=== PATIENT | male | born 1940 | race Caucasian/White ===

== ENCOUNTER → 2017-10-11 06:20 | Day surgery (SDC) | payer BC, MEDICAID, SELFPAY ==
[2017-10-10 12:10] VITALS: BMI 31.2
--- NOTE | 2017-10-11 08:56 | CL.D_ITS ---
Patient Name: GEORGE KEY Study Date: 10/11/2017 Performing: Willam Chacon MD Ht: 70.07 inches 178 cm : 1940 Wt: 218.26 lbs 99 kg Age: 76 Gender: male BSA: 2.17 PROCEDURE(S) PERFORMED LD55-UHK/COR/LV CLINICAL PROFILE AND INDICATIONS INDICATIONS: Unstable Angina Stress/Imaging Stress Test w/SPECT MPI: Yes Result: Positive Intermediate RiskStress Test with SP ECT MPI: Positive Intermediate Risk Angina Classification Anginal Classification w/in 2 Weeks: CCS I CAD Presentations: Unstable angina. Comorbidities/Risk Factors: Hypertension Dyslipidemia Prior CABG CONCLUSIONS Triple vessel CAD of the LM, LAD, LCX and RCA Normal Left Ventricular systolic function Elevated Left Ventricular End Diastolic Pressure Widely patent MORALES To LAD, SVG to OM and SVG to PDA. RECOMMENDATIONS ASA Indefinitely Management as per referring Rn Telephonic Resume full activity D/c plavix; Dr Cartwright to initiate ori/arb tx. D/w Dr Patel. DESCRIPTION OF PROCEDURE The patient arrived to the procedure lab. The risks and benefits of the procedure as well as a full d escription of our services here and current unavailability of surgical backup were fully explained to the patient and/or their significant other prior to the catheterization. The Timeout was completed, verifying the correct patient and procedure. The patient's procedural site was prepped and draped in the usual fashion. Local anesthetic was given subcutaneously to right groin region with Lidocaine 2%. Using a modified Seldinger technique, arterial access was obtained via the right femoral artery, a 4 Fr sheath was inserted Left Coronary Artery selective angiography was performed in multiple views us ing a 4 Fr. JL5 catheter. Right Coronary Artery selective angiography was then performed in multiple views using a 4 Fr. 3DRC catheter. Saphenous Vein graft to the RCA selective angiography was performe d in multiple views using a 4 Fr. 3DRC catheter. Saphenous Vein graft to the Circumflex selective ang iography was performed in multiple views using a 4 Fr. 3DRC catheter. Left internal mammary artery gr aft to the LAD selective angiography was performed in multiple views using a 4 Fr. 3DRC catheter. Lef t Ventriculography was performed in CRUZ projection using a 4 Fr. Pigtail catheter. LV to AO pullback pressures were then recorded.The arterial sheath was pulled and manual compression applied until hemo stasis is achieved. CORONARY ANGIOGRAPHY DOMINANCE: Right Dominant LEFT HEART ASSESSMENT Left Ventricular Ejection Fraction: by LV Gram 65 % Normal LV wall motion Normal Left Ventricular systolic function Elevated Left Ventricular End Diastolic Pressure LEFT MAIN: is occluded LEFT ANTERIOR DECENDING ARTERY: is occluded CIRCUMFLEX ARTERY: is occluded RIGHT CORONARY ARTERY: MID RCA: is occluded GRAFTS: MORALES graft to the LAD is patent Saphenous Vein graft to the RPDA is patent Saphenous Vein graft to the 1st OM is patent COMPLICATIONS No Complications PROCEDURE MEDICATIONS Oxygen: 2 L/min via nasal cannula SUMMARY OF HEMODYNAMIC DATA Time AIR REST ECG 07:04:29 AO 160/63 (98) SA 08:32:53 LV 150/-9, 15 08:43:00 LV 162/-11, 15 08:43:07 LVp 158/5, 22 08:43:12 AOp 148/50 (84) 08:43:17 Signed By Willam Chacon MD On 10/11/2017 08:56:05 Willam Chacon MD
== END ==
PROVIDERS: Family Provider Student in an Organized Health Care Education/Training Program; PCP Student in an Organized Health Care Education/Training Program; Visit Provider Internal Medicine Cardiovascular Disease
DX: I25.110 Atherosclerotic heart disease of native coronary artery with unstable angina pectoris (principal); I10 Essential (primary) hypertension; Z95.1 Presence of aortocoronary bypass graft; Z79.82 Long term (current) use of aspirin; Z79.899 Other long term (current) drug therapy
CPT/HCPCS: 93459; J7040; C1769; C1894; Q9967

== ENCOUNTER 2018-10-07 18:56 | Emergency (ER) | payer MEDICARE, MEDICAID, SELFPAY ==
[2018-10-07 18:57] VITALS: BP 162/84; PULSE 78; RESP 16; TEMP 36.4; O2SAT 98; BMI 30.1
--- NOTE | 2018-10-07 18:59 | CT_ITS ---
STUDY: CT ABDOMEN AND PELVIS WITHOUT CONTRAST REASON FOR EXAM: Male, 77 years old. Left upper quadrant pain RADIATION DOSAGE (If Supplied By Facility): CTDIvol = ( 16.06 ) mGy, DLP = ( 826.45 ) mGycm TECHNIQUE: Transaxial images were obtained from the dome of the diaphragm to the symphysis pubis without oral contrast, and without intravenous contrast. Sagittal and coronal images were reconstructed. Individualized dose optimization techniques were used for this CT. COMPARISON: None. FINDINGS: Mild fibrotic changes and air trapping in the lung bases. Sternal wires and mediastinal surgical clips compatible with prior CABG. Normal liver. There are multiple gallstones. No gallbladder wall thickening or pericholecystic fluid. Normal spleen. There is diffuse atrophy of the pancreas. Normal bilateral adrenal glands. Normal right kidney. Normal left kidney. Normal visualized stomach. There is mild wall thickening of the second and third portions of the duodenum with trace amount of periduodenal stranding. There are multiple colonic diverticula consistent with diverticulosis. There is non-visualization of the appendix. There is diffuse atherosclerotic calcification of the abdominal aorta, without a demonstrated aneurysm. Normal inferior vena cava. Normal retroperitoneum. Normal urinary bladder. Normal abdominal wall. There are diffuse degenerative changes of the visualized lumbar spine. CT/Abdomen/Pelvis without Cont IMPRESSION: 1. Mild wall thickening of the second and third portions of the duodenum with trace amount of periduodenal stranding suggesting possibility of duodenitis. Pancreatitis is a secondary consideration. No pneumoperitoneum. 2. No hydronephrosis or urinary tract calcifications. 3. Cholelithiasis. 4. Diverticulosis without evidence of diverticulitis. Electronically Signed: Ronaldo Lorenzo MD at 20:46 EST , Service support ,
--- NOTE | 2018-10-07 19:00 | EKG12_ITS ---
Test Reason : ABD PAIN Blood Pressure : / mmHG Vent. Rate : 070 BPM Atrial Rate : 070 BPM P-R Int : 172 ms QRS Dur : 098 ms QT Int : 438 ms P-R-T Axes : 082 048 053 degrees QTc Int : 473 ms Sinus rhythm with frequent Premature ventricular complexes Otherwise normal ECG Confirmed by DIRK GREENFIELD, DILIA ([id number]), subeditor CHRISTIAN VAZQUEZ ([id number]) on 10/10/2018 2:10:02 PM Referred By: IRMA Confirmed By:DILIA CAVAZOS MD
--- NOTE | 2018-10-07 19:12 | ED.DCSUM_ITS ---
- ER Visit Summary Date of Service: 10/07/18 Chief Complaint: [] Intermittent left side abdominal pain that started today History of Present Illness: The patient is a 77 M [] he reports intermittent left-sided abdominal pain that started today, the pain at some degree is positional if he sits down or stands up he can make it go away, it is a sharp discomfort, he has had normal bowel and bladder habits, no fever no cough no tainted food or sick individuals no diarrhea, no history of any type of GI elements, prior hysterectomy 2 years ago unremarkable he has been able to eat and drink without difficulty, when I asked him where his pain as he takes his hand and draws it around his left flank but is currently not having any pain Physical Examination: [] 164/84 afebrile General, no distress resting comfortably HEENT is generally unremarkable The neck is supple no adenopathy Cardiovascular, regular rate and rhythm Lungs, clear bilateral Abdomen, soft nontender, slightly distended but there is no rebound guarding organomegaly Extremities, no clubbing cyanosis or edema Neurologic, awake alert answering questions appropriately moving all 4 extremities Test Results: [] Emergency Department Course and Treatment: [] His age his complaints screening labs CT IV fluids Screening labs are all generally unremarkable see those reports, the CT shows nothing acute questionable second and third portion of duodenum with some inflammation consider duodenitis or pancreatitis but his lipase is normal his pain is more to the left side of the abdomen, and intermittent, on reevaluation abdomen soft and nontender I explained all the test results to him he is comfortable discharge home he will stay on a bland diet, he will consider taking proton pump inhibitors but otherwise have explained he needs to follow with his outpatient providers and possibly refer to GI for further management he understands and agrees Treatment Plan: [] Is also note the patient reports he has a history of drinking a lot of lemon and vinegar water for unspecified reasons I have asked him to discontinue that Disposition: [] Home stable Impression: [] Nonspecific intermittent left-sided abdominal pain, possible duodenitis on CT scan This note was generated with [employer] dictation software. It may contain incorrect words, spelling, and punctuation that were not noted in review of the chart prior to signing ED Disposition - Plan for ED Patient: Chief Complaint: Abd Pain Instructions: ED Abdominal Pain Unkn Cause Prescriptions: Omeprazole [Prilosec] 20 mg PO DAILY #30 cap Referrals: Husam Deras DO [Primary Care Provider] -
[2018-10-07 19:36] LABS: Absolute Lymphocyte Count 1.75 X10^3/ul (0.83-4.51); Absolute Neutrophil Count 6.6 X10^3/uL (2.0-7.7); Basophil# 0.01 X10^3/uL; Basophil% 0.1 % (0-1); Eosinophil# 0.18 X10^3/uL; Eosinophils% 1.9 % (0-5); Hematocrit 45.2 % (40-54); Lymphocyte # 1.75 X10^3/ul (4.0); Lymphocyte % 18.5 % (19-41); Mean Corp Hgb Conc 33.2 g/gl (32-36); Mean Corpuscular Hgb 30.9 pg (27.0-32.0); Mean Corpuscular Volume 93.2 fL (80-94); Mean Platelet Vol. 10.6 fl (6.2-12.0); Monocyte# 0.87 X10^3/uL; Monocyte% 9.2 % (0-10); Neutrophil # 6.61 X10^3/uL (2.7-7.7); Neutrophil % 70.1 % (47-70); Platelet Count 175 K/mm3 (150-450); RBC Distribution Width CV 13.6 % (11.6-14.6); Red Blood Count 4.85 M/mm3 (4.6-6.2); White Blood Count 9.4 K/mm3 (4.4-11.0)
[2018-10-07 19:43] LABS: POSITIVE COUNT NO; POSITIVE DIFFERENTIAL NO; POSITIVE MORPHOLOGY NO
[2018-10-07] MEDS: 0.9% Normal Saline 1,000 ML 125 ML IV (19:51)
[2018-10-07 20:01] LABS: Bacteria 0 SEEN /hpf (None Seen); Mucous, Urine 0 SEEN /hpf (<or=2+); Squamous Epithelial Cells - UA 0 SEEN /hpf (0-5)
[2018-10-07 20:07] LABS: Color, Urine Yellow (Yellow); Glucose, Dipstick Normal (Normal); Ketone-Dipstick Negative (Negative); Leukocyte Esterase-Dipstick Negative /ul (Negative); Nitrite-Dipstick Negative (Negative); Occult Blood-Urine Negative /ul (Negative); Protein-Dipstick 15 mg/dl (Negative); Specific Gravity, Urine 1.015 (1.002-1.030); Urine Bilirubin Dipstick Negative (Negative); Urine Clarity Clear (Clear); Urine Urobilinogen Normal (Normal)
[2018-10-07 20:14] LABS: White Blood Cells 0-5 SEEN /hpf (0-5)
[2018-10-07 20:15] LABS: Red Blood Cells-Urine 0-5 SEEN /hpf (0-5)
[2018-10-07 20:22] LABS: AST(SGOT) 17 U/L (15-37); Alanine Aminotransfer ALT/SGPT 35 U/L (16-61); Albumin, Serum 3.7 g/dL (3.2-5.0); Alkaline Phosphatase 50 U/L (45-117); Anion Gap 8 (5-15); BUN 25 mg/dL (7-18); BUN/Creat Ratio 25.4 RATIO (10-20); Bilirubin, Direct 0.17 mg/dL (0.00-0.30); Calcium,Total 8.7 mg/dL (8.5-10.1); Chloride 102 mmol/L (98-107); Creatinine, Serum 0.98 mg/dL (0.70-1.30); EST Glomerular Filtration Rate 78 mL/min (>60); Est Glom Filt Rate - Afr Amer 95 mL/min (>60); Estimated Creatinine Clearance 66.21 ml/min; Globulin 4.3 g/dL (2.2-4.2); Glucose 104 mg/dL (74-106); Lipase 153 U/L (73-393); Potassium 4.1 mmol/L (3.5-5.1); Sodium Level 137 mmol/L (136-145)
--- NOTE | 2018-10-07 21:09 | ED.DEP ---
ED Disposition - Plan for ED Patient: Chief Complaint: Abd Pain Instructions: ED Abdominal Pain Unkn Cause Prescriptions: Omeprazole [Prilosec] 20 mg PO DAILY #30 cap Referrals: Husam Deras DO [Primary Care Provider] -
[2018-10-07 21:38] VITALS: BP 125/77; PULSE 66; RESP 18; O2SAT 94
== END 2018-10-07 21:38 | disposition home or self-care (01) ==
PROVIDERS: Emergency Provider Emergency Medicine; Family Provider Student in an Organized Health Care Education/Training Program; PCP Student in an Organized Health Care Education/Training Program
DX: R10.9 Unspecified abdominal pain (principal); I10 Essential (primary) hypertension; Z79.82 Long term (current) use of aspirin; Z79.899 Other long term (current) drug therapy
CPT/HCPCS: 74176; 80048; 80076; 81001; 83690; 84484; 85025; 93005; 96360; 96361; 99284; J7030; A4216; J2405

== ENCOUNTER 2019-07-23 12:12 | Emergency (ER) | payer MEDICARE, MEDICAID, SELFPAY ==
[2019-07-23 12:13] VITALS: BP 110/82; PULSE 54; RESP 16; TEMP 36.6; O2SAT 98; BMI 31.1
[2019-07-23 12:53] LABS: Absolute Lymphocyte Count 1.75 X10^3/uL (0.83-4.51); Basophil# 0.04 X10^3/uL; Basophil% 0.6 % (0-1); Eosinophil# 0.16 X10^3/uL; Eosinophils% 2.4 % (0-5); Hematocrit 43.1 % (40-54); Hemoglobin 14.1 g/dL (13.0-16.5); Lymphocyte # 1.75 X10^3/ul (4.0); Lymphocyte % 26.1 % (19-41); Mean Corp Hgb Conc 32.7 g/dL (32-36); Mean Corpuscular Hgb 30.6 pg (27.0-32.0); Mean Corpuscular Volume 93.5 fL (80-94); Mean Platelet Vol. 9.7 fl (6.2-12.0); Monocyte% 10.4 % (0-10); NRBC Flagged by Analyzer 0 % (0-5); Neutrophil # 4.02 X10^3/uL (2.7-7.7); Neutrophil % 60.1 % (47-70); Platelet Count 170 K/mm3 (150-450); RBC Distribution Width CV 13.2 % (11.6-14.6); RBC Distribution Width SD 44.8 fl (35.1-43.9); Red Blood Count 4.61 M/mm3 (4.6-6.2); White Blood Count 6.7 K/mm3 (4.4-11.0)
[2019-07-23 13:06] LABS: Anion Gap 5 (5-15); BUN 29 mg/dL (7-18); BUN/Creat Ratio 32.9 RATIO (10-20); Calcium,Total 8.8 mg/dL (8.5-10.1); Chloride 102 mmol/L (98-107); Creatinine, Serum 0.88 mg/dL (0.70-1.30); EST Glomerular Filtration Rate 89 mL/min (>60); Est Glom Filt Rate - Afr Amer 108 mL/min (>60); Estimated Creatinine Clearance 74.87 ml/min; Glucose 97 mg/dL (74-106); Potassium 4.3 mmol/L (3.5-5.1); Sodium Level 134 mmol/L (136-145)
--- NOTE | 2019-07-23 13:16 | ED.DCSUM_ITS ---
- ER Visit Summary Date of Service: 07/23/19 Chief Complaint: Left thigh contusion History of Present Illness: The patient is a 78 M who states that approximately 3 days ago he was working overnight with a left medial quad cramp. He tells me that he gets these often but only at nighttime. States he was so bad he was pushing on the muscle very hardly. He tells me that within 36 hours he began to notice a bruise on the inner left thigh. This is now spread down inferiorly towards his knee. He has been eating bananas and drinking plenty of fluids. He states that he is considering getting some potassium. He has not discussed this with his doctor. Physical Examination: Afebrile vital signs stable Gen: Well-nourished well-developed Head: Normocephalic atraumatic Eyes: Perrl EOMI ENT: TMs clear no rhinorrhea moist mucous membranes Neck: Supple no lymphadenopathy no JVD nontender CVS: Regular rate rhythm no murmurs normal S1-S2 Respiratory: No distress clear to auscultation bilaterally chest nontender Abdomen: Soft nontender nondistended normal bowel sounds no masses Back: Nontender Extremity: Nontender no edema is a dark purple ecchymotic region on the medial aspect of the mid left thigh standing down to just above the knee. Skin: Normal color no rash Neuro: alert orientated ?3 CN II-XII intact normal strength sensation reflexes gait cerebellar Psych: Normal affect normal mood Test Results: CBC and BMP were normal Emergency Department Course and Treatment: Patient was advised that I do not feel strongly he needs potassium supplementation as his potassium is 4.3. I think this is local trauma for him pushing on the area most likely break in a small blood vessel. Patient to follow-up return if worsening or concerns Impression: 1. Left thigh ecchymosis 2. Left thigh muscle spasm This note was generated with [employer] dictation software. It may contain incorrect words, spelling, and punctuation that were not noted in review of the chart prior to signing ED Disposition - Plan for ED Patient: Disposition: Home or Assisted Living Instructions: Contusions (Bruises), Muscle Spasm Referrals: Husam Deras, [Primary Care Provider] - As Needed
== END 2019-07-23 13:26 | disposition home or self-care (01) ==
PROVIDERS: Emergency Provider Emergency Medicine; Family Provider Student in an Organized Health Care Education/Training Program; PCP Student in an Organized Health Care Education/Training Program
DX: S70.12XA Contusion of left thigh, initial encounter (principal); M62.838 Other muscle spasm; K21.9 Gastro-esophageal reflux disease without esophagitis; I10 Essential (primary) hypertension; E78.00 Pure hypercholesterolemia, unspecified; Z79.82 Long term (current) use of aspirin; Z79.899 Other long term (current) drug therapy; Z87.891 Personal history of nicotine dependence; X58.XXXA Exposure to other specified factors, initial encounter; Y93.9 Activity, unspecified; Y92.009 Unspecified place in unspecified non-institutional (private) residence as the place of occurrence of the external cause; Y99.8 Other external cause status
CPT/HCPCS: 80048; 85025; 99282; A4216

== ENCOUNTER 2019-12-03 11:47 | Emergency (ER) | payer MEDICARE, MEDICAID, SELFPAY ==
[2019-12-03 11:48] VITALS: BP 168/58; PULSE 69; RESP 16; TEMP 36.5; O2SAT 98; BMI 29.9
--- NOTE | 2019-12-03 12:51 | VDLE_ITS ---
Reason For Study: Swelling RIGHT GSV is normal. CFV is compressible, spontaneous, phasic, competent and demonstrates normal augmentation. FV is compressible, spontaneous, phasic, competent and demonstrates normal augmentation. POP V is compressible, spontaneous, phasic, competent and demonstrates normal augmentation. T/P Trunk is compressible. PTV is compressible. RT PerV is compressible. Structure noted in the popliteal space measuring approximently 1.56 x 4.46 x 5.82 cm. Procedure Exam performed portable in ED. A preliminary report was called and/or faxed to [facility]. Interpretation Summary There is no evidence of right lower extremity deep vein thrombosis. Right great saphenous vein appears patent and compressible segmentally. Right popliteal space 1.56 x 4.46 x 5.82 cm hypoechoic structure consistent with a Bryan's cyst. Clinical correlation would be appropriate. Ordering Physician: Les Broussard Referring Physician: Husam May Performed By: Sarika Esquivel RVT
--- NOTE | 2019-12-03 13:00 | ED.VISSUMM ---
- ER Visit Summary Date of Service: 12/03/19 Chief Complaint: Right leg swelling History of Present Illness: The patient is a 79 M who presents with right lower extremity swelling that is been getting worse over the past 2 weeks. Patient states he has some tingling in both feet. Patient denies any calf pain or thigh pain. Patient states he twisted his knee while walking a few days ago. Patient states he felt a pop in the anterior aspect of his knee. Patient has been able to ambulate since without difficulty. Patient denies any weakness. Patient denies any chest pain or shortness of breath. Physical Examination: Vital signs are stable. Patient is afebrile. Patient is in no acute distress. Oral mucosa is pink and moist. Neck is supple. Trachea is midline. There is no JVD. Heart was regular rate and rhythm. Lungs are clear and equal bilaterally. Abdomen is soft. Bowel sounds are normal. There is no tenderness. Cranial nerves II through XII are intact. There are no focal motor or sensory deficits noted. Extremities were intact. There is no calf tenderness. There is no thigh tenderness. There is 1+ edema of the right lower extremity. Pedal pulses are equal bilaterally. Test Results: Venous duplex of the right lower extremity was obtained. There is no evidence of DVT. Emergency Department Course and Treatment: Patient was instructed to ice and elevate his right leg. Patient was instructed to follow-up with his primary care physician in 5 to 7 days. Patient understood and was agreeable with the plan. All questions were answered. Disposition: Discharge home Impression: Right leg edema This note was generated with [employer] dictation software. It may contain incorrect words, spelling, and punctuation that were not noted in review of the chart prior to signing ED Disposition - Plan for ED Patient: Disposition: Home or Assisted Living Diagnosis: Leg edema, right Instructions: ED Peripheral Edema, Unilateral Referrals: Husam Deras DO [Primary Care Provider] - 5-7 Days
== END 2019-12-03 14:41 | disposition home or self-care (01) ==
PROVIDERS: Emergency Provider Emergency Medicine; PCP Student in an Organized Health Care Education/Training Program
DX: R60.0 Localized edema (principal)
CPT/HCPCS: 93971; 99282

== ENCOUNTER 2019-12-19 13:13 | Emergency (ER) | payer MEDICARE, MEDICAID, SELFPAY ==
[2019-12-19 13:14] VITALS: BP 157/73; PULSE 67; RESP 18; RESP 19; TEMP 36.7; O2SAT 97; BMI 31.8
--- NOTE | 2019-12-19 13:26 | RAD_ITS ---
STUDY: X-RAY - RIGHT KNEE REASON FOR EXAM: Male, 79 years old. PAIN AND SWELLING X 4 WEEKS TECHNIQUE: 4 view(s) of the knee. COMPARISON: None. FINDINGS: Normal visualized distal femur. Normal visualized proximal tibia and fibula. Normal proximal tibiofibular articulation. There is severe degenerative arthrosis of the medial femorotibial compartment with severe joint space narrowing. There is mild degenerative arthrosis of the lateral femorotibial compartment. There is mild degenerative arthrosis of the patellofemoral articulation. 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 There are atherosclerotic calcifications. 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 Electronically Signed: Erick Hudson, at 14:15 EDT , Service support ,
--- NOTE | 2019-12-19 13:26 | RAD_ITS ---
STUDY: X-RAY - RIGHT FOOT CLINICAL: Male, 79 years old. PAIN AND SWELLING X 4 WEEKS TECHNIQUE: History view(s) of the foot. COMPARISON: None. FINDINGS: There is an enthesophyte involving the posterior superior calcaneus at the site of insertion of the Achilles tendon. Small plantar spur. Normal visualized subtalar, talonavicular, calcaneocuboid, tarsal and tarsometatarsal articulations. Normal metatarsi. There is degenerative arthrosis of the metatarsophalangeal joint of the hallux . Normal tibial and fibular sesamoid bones. Normal interphalangeal joint of the great toe. Normal phalanges of the great toe. Normal second through fifth metatarsophalangeal joints. Normal interphalangeal joints and phalanges of the lesser toes. Soft tissue swelling. RAD/Foot min 3 Views IMPRESSION: Mild degenerative changes of the first metatarsophalangeal joint. Soft tissue swelling. Electronically Signed: Erick Hudson, at 14:14 EDT , Service support ,
[2019-12-19] MEDS: HYDROcodone Bitartrate/Apap 5/325 Tablet PO (13:32)
--- NOTE | 2019-12-19 14:06 | ED.VISSUMM ---
- ER Visit Summary Date of Service: 12/19/19 Chief Complaint: Pain History of Present Illness: The patient is a 79 M with right knee and right foot pain. This has been going on for weeks. He was seen previously in the emergency department, weeks ago and had a negative ultrasound of his leg. He was referred to his PCP, but says he could not get in. He was prescribed pain medicine, but does not like to take anything for pain. No other associated symptoms or complaints except for some tingling in his right leg which is also not new. Physical Examination: Afebrile and vital signs unremarkable. Inspection is unremarkable. Skin appears normal. He is wearing knee brace/sleeve. He is neurovascular intact distally with good strength and sensation. Good range of motion. No laxity or deformity. Good strength. Test Results: X-rays of the knee and foot were unremarkable. Emergency Department Course and Treatment: Patient was treated with [place] for pain. He had an ultrasound previously. I do not believe he has a DVT. His exam is reassuring. His x-rays are negative. Patient will be referred for outpatient follow-up. He should rest, ice, elevate. He should take his prescribed pain medicine. Follow-up with primary care. Treatment Plan: As above Disposition: Discharge Impression: Right knee pain Right foot pain This note was generated with [employer] dictation software. It may contain incorrect words, spelling, and punctuation that were not noted in review of the chart prior to signing ED Disposition - Plan for ED Patient: Referrals: Husam Deras DO [Primary Care Provider] -
--- NOTE | 2019-12-19 14:18 | ED.DEP ---
ED Disposition - Plan for ED Patient: Instructions: ANA ROSA CONNELLY Referrals: Husam Deras DO [Primary Care Provider] -
== END 2019-12-19 14:33 | disposition home or self-care (01) ==
LOC: ED 14:03
PROVIDERS: Emergency Provider Emergency Medicine; PCP Student in an Organized Health Care Education/Training Program
DX: M79.671 Pain in right foot (principal); M25.561 Pain in right knee; I10 Essential (primary) hypertension; E78.00 Pure hypercholesterolemia, unspecified; Z87.891 Personal history of nicotine dependence; Z79.899 Other long term (current) drug therapy
CPT/HCPCS: 73564; 73630; 99283

== ENCOUNTER → 2020-05-09 | Outpatient (CLI) | payer MEDICARE, MEDICAID, SELFPAY ==
--- NOTE | 2020-05-09 07:41 | CT_ITS ---
STUDY: CTA OF THE ABDOMINAL AORTA AND BILATERAL LOWER EXTREMITIES REASON FOR EXAM: Male, 79 years old. Atherosclerosis with claudication, leg weakness, hypertension. RADIATION DOSAGE (If Supplied By Facility): CTDIvol = ( 8.18 ) mGy, DLP = ( 1559.07 ) mGycm TECHNIQUE: Axial CT angiography multi-detector data acquisition was obtained from the dome of the liver to the ankle joint following intravenous administration of IV 100mL Isovue-370. Axial images and MIP images were reconstructed from the axial data set. Post-processing of the angiographic images was performed, with multiplanar reformation and 3D reconstruction. Individualized dose optimization techniques were used for this CT. TECHNICAL QUALITY: Good COMPARISON: None. Descriptors of Narrowing: None (0%) Mild (< 50%) Moderate (50-70%) Severe (70-90%) Subtotal/Total Occlusion (90-100%) Non-Evaluable (technically non-diagnostic FINDINGS: There is fatty infiltration of the liver. Multiple layering gallstones. Abdominal aorta: Atherosclerotic plaque formation of the abdominal aorta and origin of the celiac artery and superior mesenteric artery. Celiac and superior mesenteric arteries: Nonstenotic atherosclerotic plaques at the origins. Inferior mesenteric artery: Not visualized. Right renal artery(arteries): Nonstenotic plaque at the origin of the right renal artery. Left renal artery(arteries): Nonstenotic plaque at the origin of the left renal artery. Right common iliac artery: Atherosclerotic calcific plaque. Right external iliac artery: No demonstrated narrowing. Right internal iliac artery: No demonstrated narrowing. Left common iliac artery: Atherosclerotic calcific plaques. Left external iliac artery: No demonstrated narrowing. Left internal iliac artery: No demonstrated narrowing. RIGHT LOWER EXTREMITY Right common femoral artery: Nonstenotic calcific plaque. Right profundus femoris: No demonstrated narrowing. Right superficial femoral: Scattered nonstenotic calcific plaques throughout the course of the superficial femoral artery Right popliteal artery: Nonstenotic calcific plaques. Right tibioperoneal trunk: No demonstrated narrowing. Right anterior tibial artery: Scattered calcific plaques. Right posterior tibial artery: Scattered calcific plaques. Right peroneal artery: No demonstrated narrowing. LEFT LOWER EXTREMITY Left common femoral artery: Mild nonstenotic calcific plaques. Left profundus femoris: No demonstrated narrowing. Left superficial femoral: Scattered nonstenotic calcific plaques. Left popliteal artery: No demonstrated narrowing. Left tibioperoneal trunk: No demonstrated narrowing. Left anterior tibial artery: No demonstrated narrowing. Left posterior tibial artery: Focal stenotic plaque at the origin of the posterior tibial artery. Left peroneal artery: No demonstrated narrowing. CT/CTA Abd w/Runoff W/WO Contrast IMPRESSION: Multiple findings as discussed. Electronically Signed: Erick Hudson, at 14:07 EDT , Service support ,
--- NOTE | 2020-05-09 08:34 | VDLE_ITS ---
Reason For Study: Venous insufficiency RIGHT LEFT CFV is compressible, spontaneous, phasic, CFV is compressible, spontaneous, phasic, competent and demonstrates normal competent, and demonstrates normal augmentation. augmentation. FV is compressible, spontaneous, phasic, FV is compressible, spontaneous, phasic, competent and demonstrates normal competent and demonstrates normal augmentation. augmentation. POP V is compressible, spontaneous, phasic, POP V is compressible, spontaneous, phasic, competent and demonstrates normal competent and demonstrates normal augmentation. augmentation. T/P Trunk is compressible. T/P Trunk is compressible. PTV is compressible. PTV is compressible. RT PerV is compressible. LT PerV is compressible. SFJ is competent and measures 1.06 x 0.94 cm. SFJ is competent and measures 0.77 x 0.82 GSV proximal thigh measures 0.28 x 0.28 cm. cm. GSV at knee measures 0.34 x 0.40 cm. GSV previously harvested. GSV INCOMPETENT throughout for greater than ASV from junction throughout leg is 0.5 seconds. INCOMEPTENT for greater than 0.5 seconds and ASV from junction throughout calf is measures 0.31 x 0.30 cm. INCOMPETENT for greater than 0.5 seconds and SSV at junction is competent and measures measures 0.33 x 0.37 cm. 0.31 x 0.34 cm. INCOMPETENT financial project manager is noted 23 cm above medial maleolus. SSV was previously harvested. Nonvascualrized structure noted in the popliteal space measuring 1.20 x 3.12 cm. Procedure Exam performed in department. A preliminary report was called and/or faxed to [facility]. Interpretation Summary Bilateral no DVT or SVT. Bilateral ASV reflux 3.7 amd 3mm. Ordering Physician: Kirit Saenz Referring Physician: Husam Deras Performed By: Willinger, Sarika, RVT
[2020-05-09 08:36] LABS: CREATININE FINGERSTICK 0.8 mg/dL (0.70-1.30); EGFR FINGERSTICK > 60.0000 mL/min (>60)
== END | disposition home or self-care (01) ==
LOC: CT 07:34
PROVIDERS: PCP Student in an Organized Health Care Education/Training Program; Referring Provider Surgery Vascular Surgery; Visit Provider Surgery Vascular Surgery
DX: I83.891 Varicose veins of right lower extremity with other complications (principal); I83.892 Varicose veins of left lower extremity with other complications; I70.213 Atherosclerosis of native arteries of extremities with intermittent claudication, bilateral legs
CPT/HCPCS: 75635; 93970; Q9967

== ENCOUNTER 2020-08-30 13:08 | Emergency (ER) | payer MEDICARE, MEDICAID, SELFPAY ==
[2020-08-30 13:09] VITALS: BP 141/76; PULSE 66; RESP 18; TEMP 36.6; O2SAT 98; BMI 33.3
--- NOTE | 2020-08-30 13:23 | ED.VISSUMM ---
- ER Visit Summary Date of Service: 08/30/20 Chief Complaint: Cat scratch History of Present Illness: The patient is a 79 M who presents with cancers to his left hand that occurred yesterday. Patient states it is his own cat. Patient states his cat is up-to-date on rabies vaccines. Patient states the bruising has gotten worse today. Patient denies any fevers or chills. Patient denies any discharge or drainage. Patient states he placed an oil on it yesterday which helped. Patient denies any paresthesias or weakness. Patient denies any other injuries. Patient is unsure of his last tetanus. Physical Examination: Vital signs are stable. Patient is afebrile. Patient is in no acute distress. Skin is warm and dry. There is a small puncture wound noted over the dorsal aspect of the left hand near the webspace between the thumb and second metacarpal. There is some bruising noted. There is no warmth noted. There is no erythema noted. There is no active bleeding noted. Radial pulses are equal bilateral. Sensation was intact to light touch in all digits. Capillary refill was less than 2 seconds in all digits. Emergency Department Course and Treatment: Patient was given a dose of Augmentin here. Bacitracin dressing was applied. Patient was given a tetanus booster. Patient was instructed to keep the wound clean and dry. Patient was given a prescription for Augmentin. Patient was instructed to follow-up with his primary care physician in 3 to 5 days. Patient understood and was agreeable with the plan. All questions were answered. Disposition: Discharge home Impression: Cat scratch left hand This note was generated with [employer] dictation software. It may contain incorrect words, spelling, and punctuation that were not noted in review of the chart prior to signing ED Disposition - Plan for ED Patient: Disposition: Home or Assisted Living Diagnosis: Cat scratch of hand Instructions: ED Abrasion Prescriptions: Amox/Clavulanate Tablet [Augmentin Tablet] 875 mg PO Q12H #20 tab Prescription Printed Referrals: Husam Deras DO [Primary Care Provider] - 3-5 Days
[2020-08-30 13:34] VITALS: RESP 16
[2020-08-30] MEDS: Amox/Clavulanate 875 MG Tablet PO (13:42)
[2020-08-30] MEDS: Diphth,Pertuss(Acell),Tet Vac 0.5 ML Vial IM (13:42)
[2020-08-30] MEDS: BACITRACIN 15 GM Tube 1 APPLIC TOPICAL (13:43)
[2020-08-30 14:02] VITALS: RESP 16
== END 2020-08-30 14:02 | disposition home or self-care (01) ==
LOC: ED 13:35
PROVIDERS: Emergency Provider Emergency Medicine; PCP Student in an Organized Health Care Education/Training Program
DX: S60.512A Abrasion of left hand, initial encounter (principal); Z23 Encounter for immunization; I25.10 Atherosclerotic heart disease of native coronary artery without angina pectoris; K21.9 Gastro-esophageal reflux disease without esophagitis; I10 Essential (primary) hypertension; Z87.891 Personal history of nicotine dependence; Z79.899 Other long term (current) drug therapy; W55.03XA Scratched by cat, initial encounter; Y93.89 Activity, other specified; Y92.009 Unspecified place in unspecified non-institutional (private) residence as the place of occurrence of the external cause; Y99.8 Other external cause status
CPT/HCPCS: 90471; 90715; 99282

== ENCOUNTER 2021-11-03 08:07 | Emergency (ER) | payer MEDICARE, MEDICAID, SELFPAY ==
[2021-11-03 08:08] VITALS: BP 146/118; PULSE 59; RESP 18; TEMP 36.6; O2SAT 100; BMI 32.3
--- NOTE | 2021-11-03 08:14 | ED.RN ---
THIS RN CALLED FOR EKG. PT STATES NOT NORMALLY BRADYCARDIC , STATES WAS DIZZY THIS AM AND TOOK MECLIZINE
--- NOTE | 2021-11-03 08:21 | EX.ED.DYSGE1 ---
HPI History of Present Illness Chief Complaint: Abd Pain Informant: patient Narrative Narrative: 80-year-old male presents to the emergency room for the chief complaint of abdominal pain. Patient states a couple days ago he began to have pain in his bilateral flanks which he attributed to muscular injury from working out. He states that yesterday began to have epigastric and right upper quadrant pain. He notes some intermittent nausea. He notes it hurts all the time. He has been able to eat and drink. No bowel or bladder changes. He denies any abdominal surgeries. [facility] Medical History (Updated 11/03/21 @ 11:[address] Willam Tipton DO) BPH (benign prostatic hyperplasia) Coronary artery disease Home Medications aspirin 81 mg PO DAILY@0800 10/10/17 [History Last Taken 10/11/17] atenolol 25 mg PO DAILY 10/10/17 [History Last Taken 10/11/17] meclizine 25 mg PO PRN PRN 10/10/17 [History Last Taken 11/03/21] nitroglycerin 0.4 mg SUBLINGUAL PRN PRN 10/10/17 [History Last Taken Unknown] pravastatin 80 mg PO DAILY 10/10/17 [History Last Taken Unknown] hydrochlorothiazide 12.5 mg PO DAILY 10/07/18 [History Last Taken Unknown] lisinopril 20 mg PO BID 10/07/18 [History Last Taken Unknown] tamsulosin 0.4 mg PO DAILY 10/07/18 [History Last Taken Unknown] cetirizine 10 mg PO DAILY 11/03/21 [History Last Taken Unknown] gabapentin 400 mg PO TID 11/03/21 [History Last Taken Unknown] Allergy/AdvReac Type Severity Reaction Status Date / Time atorvastatin [From Lipitor] AdvReac Other Verified 11/03/21 08:10 Surgical History History of coronary artery bypass graft Social History (Updated 11/03/21 @ 08:[address] Willam Tipton DO) current gender identity: male Smoking Status: Former smoker ROS ROS ED Constitutional Constitutional ED: Denies chills or weight loss Eyes Eyes: Denies change in vision or diplopia ENT ENT ED: Denies ear pain, rhinorrhea or sore throat Cardiovascular Cardiovascular: Denies chest pain, orthopnea, palpitations or racing heartbeat Respiratory/Chest Respiratory/Chest: Denies cough, dyspnea or orthopnea Gastrointestinal Gastrointestinal: Reports abdominal pain; Denies diarrhea, nausea or vomiting Genitourinary Genitourinary ED: Denies dysuria, hematuria or urinary frequency Musculoskeletal Musculoskeletal: Denies arthralgias or myalgias Integumentary Denies abscess or rash Neurologic Neurologic: Denies headache(s) or weakness Psychiatric Psychiatric: Denies anxiety, depression, suicidal ideation or suicidal thoughts Endocrine Endocrinology: Denies polydipsia, polyphagia or polyuria Allergic/Immunologic Allergic/Immunologic ED: Denies mouth swelling, tongue swelling or urticaria EXAM Physical Exam Const Vital Signs: 11/03/21 08:08 11/03/21 11:23 Temperature 97.9 F Temperature Source Temporal Pulse Rate 59 L 50 L Respiratory Rate 18 18 Blood Pressure 146/118 H Blood Pressure Mean 127 Pulse Ox 100 99 Oxygen Delivery Method Room Air Room Air Positive well nourished, well developed and obese General Appearance ED: well developed Nutritional Appearance: obese HEENT Reports normocephalic, head/scalp atraumatic, TM's clear and moist mucous membranes Negative for trauma Tympanic Membrane ED: Yes TM's clear Eyes PERRL and EOMs intact bilaterally Neck no lymphadenopathy, supple and no JVD Resp normal respiratory effort and clear to auscultation bilaterally Cardio regular rate, regular rhythm and no murmurs GI no masses Palpation: soft and tender epigastric and RUQ; Negative for guarding or rebound tenderness present Back/Spine no CVA tenderness and normal ROM Extremity normal to inspection General Extremety ED: Negative for edema General Extremity: Negative for edema Neuro oriented x3 and CN's II-XII intact bilaterally Sensorium / Orientation: alert Motor Exam: strength 5/5 throughout Psych mental status grossly normal Mood & Affect: Negative for depressed or tearful Skin no rashes or lesions noted and no wounds MDM MDM MDM Narrative Medical decision making narrative: Basic blood work was normal. Urinalysis normal. CT of the abdomen pelvis demonstrated cholelithiasis. I spoke with our surgeon Dr. Knight who recommends a formal gallbladder ultrasound. This was performed which does not show any pericholecystic fluid or gallbladder wall thickening CBD dilatation or Bains sign. He was advised not to eat fatty foods and follow-up with general surgery as an outpatient return if worsening or concerns Lab Data Attestation: I reviewed the patient's lab results. Labs: Laboratory Results - last 24 hr 11/03/21 11/03/21 11/03/21 08:30 08:30 08:40 WBC 8.2 RBC 4.84 Hgb 15.2 Hct 44.1 MCV 91.1 MCH 31.4 MCHC 34.5 RDW Std Deviation 45.8 H RDW Coeff of [place] 13.4 Plt Count 172 MPV 9.8 Immature Gran % (Auto) 0.100 Neut % (Auto) 73.2 H Lymph % (Auto) 16.8 L [place] % (Auto) 8.0 Eos % (Auto) 1.5 Baso % (Auto) 0.4 Absolute Neuts (auto) 6.0 Absolute Lymphs (auto) 1.37 Nucleated RBC % 0 Sodium 135 L Potassium 4.4 Chloride 102 Carbon Dioxide 29.0 Anion Gap 4 L BUN 28 H Creatinine 1.05 Estim Creat Clear Calc 60.76 Est GFR (MDRD) Af Amer 87 Est GFR (MDRD) Non-Af 72 BUN/Creatinine Ratio 26.7 H Glucose 109 H Calcium 8.8 Total Bilirubin 0.70 AST 18 ALT 30 Alkaline Phosphatase 42 L Total Protein 7.5 Albumin 3.7 Globulin 3.8 Albumin/Globulin Ratio 1.0 Lipase 181 Urine Color Yellow Urine Clarity Clear Urine pH 6.0 Ur Specific [place] 1.010 Urine Protein 30 H Urine Glucose (UA) Normal Urine Ketones Negative Urine Occult Blood Negative Urine Nitrite Negative Urine Bilirubin Negative Urine Urobilinogen Normal Ur Leukocyte Esterase Negative Urine RBC 0 SEEN Urine WBC 0 SEEN Ur Squamous Epith Cells 0 SEEN Urine Bacteria 0 SEEN Urine Mucus 0 SEEN Radiography Diagnostic Testing: Clinical Impression(s) from Imaging Studies Abdomen/Pelvis CT 11/03/21 09:11 IMPRESSION: Multiple gallstones. Electronically Signed: Erick Hudson MD at 9:48 EST , Gallbladder Ultrasound 11/03/21 10:25 IMPRESSION: Hepatomegaly. Multiple gallstones. Electronically Signed: Erick Hudson MD at 11:17 EST , EKG Initial EKG: Attestation: I personally reviewed and interpreted this EKG as follows: Comments: Sinus rhythm with a ventricular rate of 60 bpm. Noted PVCs Discharge Plan Triage Chief Complaint: Abd Pain ED Provider: Willam Tipton Dx/Rx/DC Orders Clinical Impression: Abdominal pain, acute, Cholelithiasis Instructions: What Are Gallstones Prescriptions: No Action pravastatin 40 MG tablet 80 mg PO DAILY RF: 0 atenolol 25 MG tablet 25 mg PO DAILY RF: 0 aspirin 81 MG tablet 81 mg PO DAILY@0800 RF: 0 meclizine 25 MG tablet 25 mg PO PRN PRN (Reason: Dizziness) RF: 0 nitroglycerin 0.4 MG tablet, sublingual 0.4 mg sublingual PRN PRN (Reason: Cardiac/Chest Pain) RF: 0 tamsulosin 0.4 MG capsule 0.4 mg PO DAILY RF: 0 lisinopril 30 MG tablet 20 mg PO BID RF: 0 hydrochlorothiazide 12.5 MG tablet 12.5 mg PO DAILY RF: 0 cetirizine 10 mg tablet 10 mg PO DAILY RF: 0 gabapentin 400 mg capsule 400 mg PO TID RF: 0 Primary Care Provider: Husam Deras Referrals: Husam Deras DO [Primary Care Provider] - Diane Justice MD [STAFF PHYSICIAN] - 1-2 Weeks Disposition Disposition: Home, Self Care
--- NOTE | 2021-11-03 08:23 | EKG12_ITS ---
Test Reason : Blood Pressure : / mmHG Vent. Rate : 060 BPM Atrial Rate : 060 BPM P-R Int : 194 ms QRS Dur : 088 ms QT Int : 454 ms P-R-T Axes : -21 048 079 degrees QTc Int : 454 ms Sinus rhythm with frequent Premature ventricular complexes Otherwise normal ECG Confirmed by GINA GREENFIELD, NICHOL ([id number]), editor publications CHANTELLE HOBSON ([id number]) on 11/06/2021 1:53:02 PM Referred By: BON Confirmed By:NICHOL FUENTES MD
[2021-11-03 08:41] LABS: Absolute Lymphocyte Count 1.37 X10^3/uL (0.83-4.51); Basophil# 0.03 X10^3/uL; Basophil% 0.4 % (0-1); Eosinophil# 0.12 X10^3/uL; Eosinophils% 1.5 % (0-5); Hematocrit 44.1 % (40-54); Hemoglobin 15.2 g/dL (13.0-16.5); Lymphocyte # 1.37 X10^3/ul (0.83-4.51); Lymphocyte % 16.8 % (19-41); Mean Corp Hgb Conc 34.5 g/dL (32-36); Mean Corpuscular Hgb 31.4 pg (27.0-32.0); Mean Corpuscular Volume 91.1 fL (80-94); Mean Platelet Vol. 9.8 fl (6.2-12.0); Monocyte# 0.65 X10^3/uL; NRBC Flagged by Analyzer 0 % (0-5); Neutrophil # 5.98 X10^3/uL (2.7-7.7); Neutrophil % 73.2 % (47-70); Platelet Count 172 K/mm3 (150-450); RBC Distribution Width CV 13.4 % (11.6-14.6); RBC Distribution Width SD 45.8 fl (35.1-43.9); Red Blood Count 4.84 M/mm3 (4.6-6.2); White Blood Count 8.2 K/mm3 (4.4-11.0)
[2021-11-03 08:45] LABS: Bacteria 0 SEEN /hpf (None Seen); Mucous, Urine 0 SEEN /hpf (<or=2+); Red Blood Cells-Urine 0 SEEN /hpf (0-5); Squamous Epithelial Cells - UA 0 SEEN /hpf (0-5); White Blood Cells 0 SEEN /hpf (0-5)
[2021-11-03] MEDS: Ketorolac 15 MG/ML Vial IV (08:47)
[2021-11-03 08:48] LABS: Color, Urine Yellow (Yellow); Glucose, Dipstick Normal (Normal); Ketone-Dipstick Negative (Negative); Leukocyte Esterase-Dipstick Negative /ul (Negative); Nitrite-Dipstick Negative (Negative); Occult Blood-Urine Negative /ul (Negative); Protein-Dipstick 30 mg/dl (Negative); Urine Bilirubin Dipstick Negative (Negative); Urine Clarity Clear (Clear); Urine Urobilinogen Normal (Normal)
[2021-11-03 08:58] LABS: AST(SGOT) 18 U/L (15-37); Alanine Aminotransfer ALT/SGPT 30 U/L (16-61); Albumin, Serum 3.7 g/dL (3.2-5.0); Alkaline Phosphatase 42 U/L (45-117); Anion Gap 4 (5-15); BUN 28 mg/dL (7-18); BUN/Creat Ratio 26.7 RATIO (10-20); Calcium,Total 8.8 mg/dL (8.5-10.1); Chloride 102 mmol/L (98-107); Creatinine, Serum 1.05 mg/dL (0.70-1.30); EST Glomerular Filtration Rate 72 mL/min (>60); Est Glom Filt Rate - Afr Amer 87 mL/min (>60); Estimated Creatinine Clearance 60.76 ml/min; Globulin 3.8 g/dL (2.2-4.2); Glucose 109 mg/dL (74-106); Lipase 181 U/L (73-393); Potassium 4.4 mmol/L (3.5-5.1); Protein, Total 7.5 g/dL (6.4-8.2); Sodium Level 135 mmol/L (136-145)
--- NOTE | 2021-11-03 09:11 | CT_ITS ---
STUDY: CT ABDOMEN AND PELVIS WITH CONTRAST REASON FOR EXAM: Male, 80 years old. Abdominal pain RADIATION DOSAGE (If Supplied By Facility): CTDIvol = ( 19.75 ) mGy, DLP = ( 1240.65 ) mGycm TECHNIQUE: Transaxial images were obtained from the dome of the diaphragm to the symphysis pubis without oral contrast. IV 100mL Isovue-300 was administered. Sagittal and coronal images were reconstructed. Individualized dose optimization techniques were used for this CT. COMPARISON: Comparison is made with prior study dated 04/06/2019. FINDINGS: The visualized lung bases are unremarkable. Coronary artery calcification. Normal liver. There are multiple gallstones. Normal spleen. There is diffuse atrophy of the pancreas. Normal bilateral adrenal glands. Normal right kidney. Normal left kidney. Normal visualized stomach. Normal small intestine. There are multiple colonic diverticula consistent with diverticulosis. There is non-visualization of the appendix. There is diffuse atherosclerotic calcification of the abdominal aorta, without a demonstrated aneurysm. Normal inferior vena cava. Normal retroperitoneum. Normal urinary bladder. There are prostatic calcifications. Normal abdominal wall. There are diffuse degenerative changes of the visualized lumbar spine. CT/Abdomen/Pelvis W IV Cont ONLY IMPRESSION: Multiple gallstones. Electronically Signed: Erick Hudson MD at 9:48 EST ,
--- NOTE | 2021-11-03 10:25 | US_ITS ---
STUDY: ABDOMINAL ULTRASOUND - RIGHT UPPER QUADRANT REASON FOR VISIT: Male, 80 years old mid abdominal pain. TECHNIQUE: Ultrasound evaluation of the right upper quadrant was performed with real-time and static das-scale imaging. TECHNICAL QUALITY: Adequate. COMPARISON: None. FINDINGS: Liver: The liver is mildly enlarged and measures 20.3 cm. There is normal echogenicity of the liver. The bile ducts are within normal limits. There is hepatic color flow. The direction of portal flow is hepatopetal. There is no demonstrated mass lesion. Gallbladder: Normal distended gallbladder. The gallbladder wall measures 2.5 mm. There is a negative sonographic Bains''s sign. There is no pericholecystic fluid. There are multiple echogenic structures within the gallbladder, consistent with multiple gallstones. Common Bile Duct (C.B.D.): The common bile duct measures 4 mm. Pancreas: Normal size of the head, body and tail of the pancreas. There is increased echogenicity of the pancreas. There is no demonstrated pancreatic mass or cyst. Right Kidney: Normal size of the right kidney. The right kidney measures 13 cm x 5.3 cm x 5.4 cm. Normal renal cortex. The right cortex measures 2.3 cm. There is no demonstrated renal mass or cyst. There is no right hydronephrosis. US/Gallbladder IMPRESSION: Hepatomegaly. Multiple gallstones. Electronically Signed: Erick Hudson MD at 11:17 EST ,
[2021-11-03 11:23] VITALS: PULSE 50; RESP 18; O2SAT 99
== END 2021-11-03 12:06 | disposition home or self-care (01) ==
PROVIDERS: Emergency Provider Emergency Medicine; PCP Student in an Organized Health Care Education/Training Program; Visit Provider Emergency Medicine
DX: K80.20 Calculus of gallbladder without cholecystitis without obstruction (principal); I25.10 Atherosclerotic heart disease of native coronary artery without angina pectoris; N40.0 Benign prostatic hyperplasia without lower urinary tract symptoms; E66.9 Obesity, unspecified; Z95.1 Presence of aortocoronary bypass graft; Z68.32 Body mass index [BMI] 32.0-32.9, adult; Z79.82 Long term (current) use of aspirin; Z79.899 Other long term (current) drug therapy; Z87.891 Personal history of nicotine dependence
CPT/HCPCS: 74177; 76705; 80053; 80076; 81001; 83690; 85025; 93005; 96374; 99283; 99284; Q9967; A4216

== ENCOUNTER 2021-11-03 16:23 | Emergency (ER) | payer MEDICARE, MEDICAID, SELFPAY ==
[2021-11-03 16:23] VITALS: BP 170/60; PULSE 63; RESP 18; TEMP 35.9; O2SAT 94; BMI 32.3
[2021-11-03] MEDS: Dicyclomine 10 MG Capsule 20 MG PO (18:54)
[2021-11-03 18:59] LABS: Absolute Lymphocyte Count 0.69 X10^3/uL (0.83-4.51); Absolute Neutrophil Count 8.6 X10^3/uL (2.0-7.7); Basophil# 0.01 X10^3/uL; Basophil% 0.1 % (0-1); Eosinophil# 0.04 X10^3/uL; Eosinophils% 0.4 % (0-5); Hematocrit 43.7 % (40-54); Hemoglobin 15.2 g/dL (13.0-16.5); Lymphocyte # 0.69 X10^3/ul (0.83-4.51); Lymphocyte % 6.9 % (19-41); Mean Corp Hgb Conc 34.8 g/dL (32-36); Mean Corpuscular Hgb 31.3 pg (27.0-32.0); Mean Corpuscular Volume 90.1 fL (80-94); Monocyte# 0.69 X10^3/uL; Monocyte% 6.9 % (0-10); NRBC Flagged by Analyzer 0 % (0-5); Neutrophil % 85.3 % (47-70); Platelet Count 172 K/mm3 (150-450); RBC Distribution Width CV 13.3 % (11.6-14.6); RBC Distribution Width SD 44.2 fl (35.1-43.9); Red Blood Count 4.85 M/mm3 (4.6-6.2); White Blood Count 10.1 K/mm3 (4.4-11.0)
[2021-11-03 19:15] LABS: AST(SGOT) 16 U/L (15-37); Alanine Aminotransfer ALT/SGPT 29 U/L (16-61); Albumin, Serum 3.7 g/dL (3.2-5.0); Alkaline Phosphatase 43 U/L (45-117); Bilirubin, Direct 0.18 mg/dL (0.00-0.30); Globulin 3.9 g/dL (2.2-4.2); Lipase 137 U/L (73-393); Protein, Total 7.6 g/dL (6.4-8.2)
[2021-11-03 20:57] VITALS: BP 186/59; PULSE 57; RESP 18; O2SAT 97
--- NOTE | 2021-11-03 21:27 | ED.VIS.GI ---
HPI HPI - GI History of Present Illness Chief Complaint: Abd Pain Detail of Chief Complaint: Generalized abdominal discomfort with distention Informant: patient Abdominal Pain/Flank Pain Onset: Hours Context: Sudden Onset Timing: Continuous Quality: Aching Current Severity: Mild Maximum Severity: Moderate Worsened by: Nothing Relieved by: Nothing Nausea/Vomiting/Emesis GI Symptom: Positive for Nausea; Negative for Vomiting Diarrhea/Melena/Hematochezia GI Symptom: Negative for Diarrhea, Melena and Hematochezia Narrative Narrative: Patient was seen earlier today by Dr. Siddiqui. CT revealed cholelithiasis. Ultrasound was obtained which reveals no evidence of cholecystitis. His laboratory work was unremarkable. He returns because of recurrent pain. His pain is generalized. His abdomen is distended. He reports nausea without vomiting or diarrhea. He denies constipation. He is still flagellated. He denies urologic symptoms. He denies cardiac or respiratory symptoms. He has no alleviating, exacerbating precipitating factors. He did eat a meal that is high in fat. Prior similar symptoms: Yes Recent Illness/Hospitalization: Yes [facility] Medical History BPH (benign prostatic hyperplasia) Coronary artery disease Home Medications aspirin 81 mg PO DAILY@0800 10/10/17 [History Last Taken 10/11/17] atenolol 25 mg PO DAILY 10/10/17 [History Last Taken 10/11/17] meclizine 25 mg PO PRN PRN 10/10/17 [History Last Taken 11/03/21] nitroglycerin 0.4 mg SUBLINGUAL PRN PRN 10/10/17 [History Last Taken Unknown] pravastatin 80 mg PO DAILY 10/10/17 [History Last Taken Unknown] hydrochlorothiazide 12.5 mg PO DAILY 10/07/18 [History Last Taken Unknown] lisinopril 20 mg PO BID 10/07/18 [History Last Taken Unknown] tamsulosin 0.4 mg PO DAILY 10/07/18 [History Last Taken Unknown] cetirizine 10 mg PO DAILY 11/03/21 [History Last Taken Unknown] gabapentin 400 mg PO TID 11/03/21 [History Last Taken Unknown] hydrocodone-acetaminophen 1 tab PO Q6H PRN PRN 3 Days #10 tablet 11/03/21 [Rx Last Taken Unknown] Allergy/AdvReac Type Severity Reaction Status Date / Time atorvastatin [From Lipitor] AdvReac Other Verified 11/03/21 16:27 Surgical History History of coronary artery bypass graft Social History (Updated 11/03/21 @ 21:[address] Diego Hernandez MD) household members: none Smoking Status: Former smoker substance use type: does not use ROS ROS ED Constitutional Constitutional ED: Denies chills, fever(s), subjective, sweats or weight loss ENT ENT ED: Denies ear pain, rhinorrhea or sore throat Cardiovascular Cardiovascular: Denies chest pain, orthopnea, palpitations, paroxysmal nocturnal dyspnea or racing heartbeat Respiratory/Chest Respiratory/Chest: Denies cough, dyspnea, dyspnea on exertion, orthopnea or paroxysmal nocturnal dyspnea Gastrointestinal Gastrointestinal: Reports abdominal pain and nausea; Denies constipation, diarrhea or vomiting Genitourinary Genitourinary ED: Denies dysuria, hematuria or urinary frequency Musculoskeletal Musculoskeletal: Reports back pain; Denies arthralgias, myalgias or neck pain Integumentary Denies Abrasions or rash Neurologic Neurologic: Denies headache(s) or weakness Endocrine Endocrinology: Denies polydipsia, polyphagia or polyuria Hematologic/Lymphatic Hematologic/Lymphatic: Reports easy bleeding and easy bruising EXAM Physical Exam Const Vital Signs: 11/03/21 16:23 11/03/21 20:57 Temperature 96.7 F L Temperature Source Temporal Pulse Rate 63 57 L Respiratory Rate 18 18 Blood Pressure 170/60 H 186/59 H Blood Pressure Mean 96 101 Pulse Ox 94 97 Oxygen Delivery Method Room Air Room Air Positive well nourished, well developed and obese General Appearance ED: well developed and NAD; Negative for pallor Nutritional Appearance: obese HEENT Reports TM's clear and moist mucous membranes normocephalic and atraumatic Tympanic Membrane ED: Yes TM's clear Eyes PERRL and EOMs intact bilaterally General Eye ED: Negative for pale conjunctiva or scleral icterus Neck no lymphadenopathy, supple and no JVD Resp normal respiratory effort and clear to auscultation bilaterally Cardio regular rate, regular rhythm, S1 normal heart sound, S2 normal heart sound and no murmurs GI non-tender and no masses; Negative for non-distended GI Narrative: Abdomen is tympanic. Negative clinical Bains sign. Inspection: abdominal distention Auscultation: hypoactive bowel sounds; Negative for normoactive bowel sounds or hyperactive bowel sounds Palpation: soft; Negative for tender, guarding, rigid, hepatomegaly, splenomegaly, hernia, mass, pulsatile mass or rebound tenderness present Back/Spine no CVA tenderness Cervical Spine: Negative for cervical spine tenderness Thoracic Spine / Upper Back: Negative for thoracic spinal tenderness Lumbar Spine / Lower Back: Negative for lumbar spinal tenderness Neuro CN's II-XII intact bilaterally Sensorium / Orientation: alert, oriented to person, oriented to place and oriented to time Psych mental status grossly normal and thought process normal Skin no wounds General Skin Exam: Negative for jaundice or pallor Lesions: no lesions Rashes: no rashes MDM MDM MDM Narrative Medical decision making narrative: Documentation for earlier visit was reviewed. CAT scan revealed cholelithiasis. Ultrasound ruled no abnormality. Blood work was unremarkable. Patient was discharged to follow-up with surgeon. Patient's exam is unremarkable. Repeat blood work was obtained and if any difference would contact surgeon otherwise patient can follow-up as he was previously instructed. Lab Data Attestation: I reviewed the patient's lab results. Lab results narrative: All tests are normal Labs: Laboratory Results - last 24 hr 11/03/21 11/03/21 18:50 18:50 WBC 10.1 RBC 4.85 Hgb 15.2 Hct 43.7 MCV 90.1 MCH 31.3 MCHC 34.8 RDW Std Deviation 44.2 H RDW Coeff of [place] 13.3 Plt Count 172 MPV 10.0 Immature Gran % (Auto) 0.400 Neut % (Auto) 85.3 H Lymph % (Auto) 6.9 L [place] % (Auto) 6.9 Eos % (Auto) 0.4 Baso % (Auto) 0.1 Absolute Neuts (auto) 8.6 H Absolute Lymphs (auto) 0.69 L Nucleated RBC % 0 Total Bilirubin 0.70 Direct Bilirubin 0.18 AST 16 ALT 29 Alkaline Phosphatase 43 L Total Protein 7.6 Albumin 3.7 Globulin 3.9 Lipase 137 Discharge Plan Triage Chief Complaint: Abd Pain ED Provider: HernandezDiego Dx/Rx/DC Orders Clinical Impression: Abdominal discomfort, generalized, Cholelithiasis Instructions: Treating Gallstones Prescriptions: No Action pravastatin 40 MG tablet 80 mg PO DAILY RF: 0 atenolol 25 MG tablet 25 mg PO DAILY RF: 0 aspirin 81 MG tablet 81 mg PO DAILY@0800 RF: 0 meclizine 25 MG tablet 25 mg PO PRN PRN (Reason: Dizziness) RF: 0 nitroglycerin 0.4 MG tablet, sublingual 0.4 mg sublingual PRN PRN (Reason: Cardiac/Chest Pain) RF: 0 tamsulosin 0.4 MG capsule 0.4 mg PO DAILY RF: 0 lisinopril 30 MG tablet 20 mg PO BID RF: 0 hydrochlorothiazide 12.5 MG tablet 12.5 mg PO DAILY RF: 0 cetirizine 10 mg tablet 10 mg PO DAILY RF: 0 gabapentin 400 mg capsule 400 mg PO TID RF: 0 hydrocodone-acetaminophen [hydrocodone-acetaminophen] 1 TABLET tablet 1 tab PO Q6H PRN PRN (Reason: Pain) 3 Days Qty: 10 RF: 0 Primary Care Provider: Husam Deras Referrals: Husam Deras DO [Primary Care Provider] - As Needed Activity Restrictions/Additional Instructions: 1. You should avoid anything that is fried or greasy 2. You should not put butter on any of your food. 3. You need to follow-up with the doctor that case was discussed with by Dr. Siddiqui and on your prior paperwork. Disposition Disposition: Home, Self Care
[2021-11-03 21:45] VITALS: BP 153/78; PULSE 78; RESP 17; O2SAT 98
== END 2021-11-03 21:46 | disposition home or self-care (01) ==
PROVIDERS: Emergency Provider Emergency Medicine; PCP Student in an Organized Health Care Education/Training Program; Visit Provider Emergency Medicine
DX: K80.20 Calculus of gallbladder without cholecystitis without obstruction (principal); N40.0 Benign prostatic hyperplasia without lower urinary tract symptoms; I25.10 Atherosclerotic heart disease of native coronary artery without angina pectoris; Z79.82 Long term (current) use of aspirin; Z79.899 Other long term (current) drug therapy; Z95.1 Presence of aortocoronary bypass graft; Z87.891 Personal history of nicotine dependence; E66.9 Obesity, unspecified; Z68.32 Body mass index [BMI] 32.0-32.9, adult
CPT/HCPCS: 80076; 83690; 85025; A4216

== ENCOUNTER 2021-12-28 09:21 | Day surgery (SDC) | payer MEDICARE, MEDICAID, SELFPAY ==
--- NOTE | 2021-12-28 10:24 | EKG12_ITS ---
Test Reason : PRE-OP Blood Pressure : / mmHG Vent. Rate : 060 BPM Atrial Rate : 060 BPM P-R Int : 206 ms QRS Dur : 094 ms QT Int : 434 ms P-R-T Axes : 000 050 075 degrees QTc Int : 434 ms Normal sinus rhythm Normal ECG When compared with ECG of 03-NOV-2021 08:23, Premature ventricular complexes are no longer Present Confirmed by KWAKU GREENFIELD, KINGSLEY ([id number]), online editor CHANTELLE HOBSON ([id number]) on 01/01/2022 5:50:01 AM Referred By: Diane Justice Confirmed By:JAHAIRA AMES MD
[2021-12-28 10:57] VITALS: BP 131/61; PULSE 60; RESP 16; TEMP 36.8; O2SAT 100; BMI 33.3
--- NOTE | 2021-12-28 10:57 | HP.PCM.SX_ITS ---
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 Patient denies any abdominal pain since his office appointment. Tolerating diet having bowel function. Patient was allowed to hold his 81 mg aspirin. from office visit 11/12/2021 HPI: GEORGE KEY, is a 80 M who presents to the office today for gallstones abdominal pain. Patient did go to the ER twice 11/03 due to epigastric abdominal pain. Work-up was found to have gallstones on CT as well as ultrasound. Ultrasound showed abnormal gallbladder wall no pericholecystic fluid and lab work had normal LFTs and white blood cell count. Patient was sent home from the ER. Patient dates since then he has not had any abdominal pain but he has been only really taking vegetable soup as well as having 3 eggs for protein. Patient is interested to have his gallbladder removed. 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 [facility] Medical History Arthritis Back pain BPH (benign prostatic hyperplasia) Cardiology follow-up encounter Coronary artery disease Easy bruising Former smoker History of irregular heartbeat History of stress test Leg cramps Thyroid disease Wears glasses Wears hearing aid Wears partial dentures Home Medications aspirin 81 mg PO DAILY@0800 10/10/17 [History Last Taken 10/11/17] atenolol 25 mg PO DAILY 10/10/17 [History Last Taken 10/11/17] meclizine 25 mg PO PRN PRN 10/10/17 [History Last Taken 11/03/21] hydrochlorothiazide 12.5 mg PO DAILY 10/07/18 [History Last Taken Unknown] lisinopril 20 mg PO BID 10/07/18 [History Last Taken Unknown] cetirizine 10 mg PO DAILY 11/03/21 [History Last Taken Unknown] gabapentin 400 mg PO DAILY 11/03/21 [History Last Taken Unknown] levothyroxine 75 mcg PO DAILY 12/24/21 [History Last Taken Unknown] meloxicam [Mobic] 7.5 mg PO DAILY 12/24/21 [History Last Taken Unknown] omega-3 fatty acids [Fish Oil] 1,000 mg PO DAILY 12/24/21 [History Last Taken Unknown] psyllium husk [Daily Fiber] 0.4 g PO DAILY 12/24/21 [History Last Taken Unknown] tamsulosin 0.4 mg PO QHS 12/24/21 [History Last Taken Unknown] Allergy/AdvReac Type Severity Reaction Status Date / Time atorvastatin [From Lipitor] AdvReac Other Verified 12/28/21 11:02 Surgical History History of cardiac catheterization History of coronary artery bypass graft Hx of shoulder surgery Social History household members: none Smoking Status: Former smoker substance use type: does not use Physical Exam Const alert, oriented x3 and no apparent distress HEENT normocephalic and head/scalp atraumatic Resp normal respiratory effort Cardio regular rate GI soft to palpation; Negative for non-distended Palpation: Negative for tender or guarding Extremity no clubbing, cyanosis or edema Neuro CN's II-XII intact bilaterally Psych mental status grossly normal Assessment & Plan Assessment/Plan (1) Cholelithiasis: PLAN: Patient did receive cardiac clearance was able to hold his 81 mg of aspirin per his 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 Reviewed the anatomy with the patient and discussed the procedure: laparoscopic cholecystectomy with possible cholangiograms, possible open. Review risks including but not limited to bleeding, infection, hernia, bile leak, retained gallstones requiring another procedure ERCP- Endoscopic Retrograde Cholangiopancreatography, injury to another organ (bile ducts, common bile duct, small bowel, etc.) and conversion to an open procedure. All questions were answered. Diane Justice M.D. Pager: [phone] [facility] [address] [place] [address], [address] [place] [address] Office: [phone] Procedure Criteria Type of Procedure Procedure Type: Elective Elective Risks - COVID COVID Risk Discussion: The surgeon/proceduralist and patient have discussed in detail the risk of exposure to and/or potential harm posed by the COVID-19 virus with having a surgery/procedure at this time versus the risk of delaying the surgery/procedure. It is not possible to know either the risk of delaying the surgery or procedure or chance of getting an infection with perfect accuracy, but a joint decision was made between the patient and the surgeon/proceduralist to proceed at this time with the scheduled surgery/procedure as indicated on the consent form.
[2021-12-28] MEDS: Lactated Ringers 1,000 ML 15 ML IV ×2 (11:06→13:26)
[2021-12-28 11:21] LABS: Prothrombin Time (Protime)PT. 13.1 SECONDS (11.7-14.9)
[2021-12-28 11:22] LABS: Partial Thromboplast Time 24.6 Seconds (24.1-36.2)
[2021-12-28] MEDS: Cefotetan 2 GM in 0.9% NS 100 ML IV (11:33)
[2021-12-28 11:37] LABS: Thyroid Stim Hormone (TSH) 1.88 uIU/mL (0.358-3.74)
--- NOTE | 2021-12-28 12:20 | GALL_PTH ---
PATIENT: GEORGE KEY LOC: [facility] U#:[id number] AGE/SX: 81/M ROOM: RE12/28/[address]: Dr. Diane Justice MD : [id number] BED: DIS: 12/28/2021 SPEC #: [id number] RECD: 12/28/21 15:05 STATUS: MARCI RERamos #: [id number] COREY: 12/28/21 12:[address]: Diane Justice DEPT: SURGICAL PATHOLOGY RECD BY: Janey Martinez ENTERED: 12/29/21 07:29 SP TYPE: JAMES CHAUDHARY DR: Dr. Husam Deras, DO Tissues: Gallbladder, NOS Procedures: Surgery Specimen Level III HEADER OPERATION: Laparoscopic cholecystectomy PRE-OP DIAGNOSIS: Cholelithiasis TISSUE SUBMITTED: Gallbladder MICROSCOPIC DIAGNOSIS Gallbladder, cholecystectomy: Chronic cholecystitis and cholelithiasis. SJ:briana 12/30/2021 MICROSCOPIC DESCRIPTION Slides are reviewed. GROSS DESCRIPTION Received is one container labeled with the patient's name and designated gallbladder. The specimen consists of a previously opened gallbladder measuring 5 x 3 x 1 cm. The external surface is smooth and glistening. Focally, it is granular, hemorrhagic and contains cautery artifact. The lumen of the gallbladder contains yellow-green mucoid bile. The specimen container contains multiple dark green-black calculi averaging 1.5 cm. The gallbladder mucosa is bile-stained and without any mass lesions. The gallbladder wall averages 0.2 cm in thickness and is free of mass lesions. Portfolio Specialist sections of the gallbladder and the cystic duct at margin of resection are submitted in one cassette. / AM:briana 12/29/2021 TC:3 CPT: 27862
[2021-12-28] MEDS: Bupivacaine 0.5% PF 10 ML VIAL (12:50)
--- NOTE | 2021-12-28 12:53 | PCM.OPRPT ---
Report of Operation Date of Procedure: 12/28/21 Pre-Operative Diagnosis: Cholelithiasis, right upper quadrant pain Post-Operative Diagnosis: Cholelithiasis, chronic cholecystitis Surgery/Procedure Performed:: Laparoscopic cholecystectomy Surgeon: Diane Justice ear nose throat physician: Michael Rosas Type of Anesthesia: General/Supplemental Anesthesiologist: Jatinder Marcus Special Medications: Cefotetan 2 g IV x1 Specimen's removed: Gallbladder and stones Estimated Blood Loss (mL): 15 cc Description of Procedure: Indications: this is a 81 year-old male who developed abdominal pain/nausea/vomiting and on workup was found to have cholelithiasis, with a normal common bile duct. Laparoscopic cholecystectomy was elected. Description procedure: The patient was placed on operating table in supine position. A timeout was completed verifying correct patient, procedure, site, position and special equipment prior to beginning procedure. General Anesthesia was induced. The abdomen was prepped and draped in usual sterile fashion. An incision was made in the natural skin line above the umbilicus. The fascia was elevated and incised. The peritoneum was elevated and incised. Entry into the peritoneum was confirmed visually and no bowel was noted in the vicinity of the incision. Mtz trocar was placed. The abdomen was insufflated with carbon dioxide to a pressure of 12-15 mmHg. Patient tolerated insufflation well. The laparoscope was then inserted and abdomen inspected. No injuries from initial trocar placement were noted. Additional trochars were then inserted in the following locations 5 mm trocar in the epigastrium and 2 more 5 mm trochars along the right costal margin. The abdomen was inspected there is noted that the omentum was stuck to the gallbladder. The table is placed in reverse Trendelenburg position with the right side up. Adhesions between the omentum and gallbladder were carefully dissected off the gallbladder. Noted that multiple adhesions due to previous inflammation and a rind of fat surrounding the gallbladder which was carefully taken down. Due to the adhesions there was entry into the gallbladder. Stones were removed and placed in endoscopic retrieval bag. The epigastric port site was enlarged to 12 mm to accompany the 10 mm clip. The dome of the gallbladder was grasped with atraumatic grasper passed through the lateral port and retracted over the dome of the liver. Infundibulum was then grasped with atraumatic grasper through the midclavicular port and retracted to the right lower quadrant. Were able to dissect down to the neck of the gallbladder however no obvious cystic artery was seen dense adhesions were noted past this area. Did attempt to milk any additional stones out from this area which there was one removed with the stone grasper. Cholangiograms were not attempted. 10 mm clip was placed at the cystic duct/neck of the gallbladder. The gallbladder then dissected from its peritoneal attachments by electrocautery. Hemostasis was checked and the gallbladder and contained stones were removed using the endoscopic retrieval bag through the umbilical port. The gallbladder is passed off table as specimen. The gallbladder fossa was irrigated with saline and hemostasis obtained. There is no evidence of bleeding from the gallbladder fossa or leakage of bile from the cystic duct stump. Secondary trochars removed under direct vision. No bleeding was noted the trocar sites. The laparoscope was withdrawn and umbilical trocar removed. The abdomen was allowed to collapse. The fascia of the 12 mm trocars were closed with a [id number] 0 Vicryl suture. The skin was closed with sutures of 4-0 Monocryl and Steri-Strips. The patient was extubated. The patient tolerated procedure well and was taken to the postanesthesia care unit in stable condition. Complications none
--- NOTE | 2021-12-28 13:03 | EX.PCM.DISCH ---
Discharge Instructions Diet Discharge Diet: Light diet - advance as tolerated Activity Discharge Activity: May Not Drive (while taking narcotic pain medications.) May shower in (days): 1 Lifting Restrictions: no lifting >20 lbs x 2 wks, no strenuous exercise for 4 wks Dressing / Incision Call your doctor if your incision/area has: Continuous Slow Oozing, Sudden Increased Bleeding, Increased Pain/ Swelling, Increased Redness, Foul Smelling Discharge and Swelling at the incision site Call your doctor if you observe: Fever of 101 or Higher Remove Dressing in: 2 days Cleanse incision/area with: Soap & Water Additional Dressing/Incision Instructions:: Steri-Strips will fall off in 7 to 10 days, if they do not fall off okay to remove after 10 days. Follow Up Care Please Follow Up With: Diane Justice MD When: Call the office for a follow-up appointment 2 weeks; after 5 PM and on the weekends call [phone] with any concerns. Test Results: Test results from this visit will be discussed in further detail at your follow-up appointment, if applicable. Discharge Plan Admission Attending Provider: Diane Justice Primary Care Provider: Husam Deras Discharge Orders/Prescriptions Prescriptions: New tramadol 50 mg tablet 50 mg PO Q6H PRN (Reason: pain) 3 Days Qty: 10 RF: 0 Continued atenolol 25 MG tablet 25 mg PO DAILY RF: 0 meclizine 25 MG tablet 25 mg PO PRN PRN (Reason: Dizziness) RF: 0 lisinopril 30 MG tablet 20 mg PO BID RF: 0 hydrochlorothiazide 12.5 MG tablet 12.5 mg PO DAILY RF: 0 cetirizine 10 mg tablet 10 mg PO DAILY RF: 0 gabapentin 400 mg capsule 400 mg PO DAILY RF: 0 levothyroxine 75 mcg Tablet 75 mcg PO DAILY RF: 0 meloxicam [Mobic] 7.5 mg Tablet 7.5 mg PO DAILY RF: 0 omega-3 fatty acids Capsule 1,000 mg PO DAILY RF: 0 psyllium husk [Daily Fiber] 0.4 gram Capsule 0.4 g PO DAILY RF: 0 tamsulosin 0.4 mg Capsule 0.4 mg PO QHS RF: 0 Held aspirin 81 MG tablet 81 mg PO DAILY@0800 RF: 0 Hold Instructions: Resume on 12/30/21. Referrals / Follow Up: Husam Deras DO [Primary Care Provider] - Disposition Disposition (needs filled in before D/C Order can be placed): Home, Self Care
[2021-12-28 13:12] VITALS: BP 131/61; BP 150/63; PULSE 79; RESP 18; TEMP 36.4; O2SAT 92
[2021-12-28 13:15] VITALS: BP 131/61; BP 135/48; PULSE 67; RESP 16; O2SAT 93
[2021-12-28 13:30] VITALS: BP 131/61; BP 135/98; PULSE 64; RESP 16; O2SAT 93
[2021-12-28 13:45] VITALS: BP 127/83; BP 131/61; PULSE 65; RESP 16; TEMP 36.8; O2SAT 98
[2021-12-28 14:45] VITALS: BP 131/61; BP 144/81; PULSE 68; RESP 16; TEMP 36.1; O2SAT 94
== END 2021-12-28 23:59 | disposition home or self-care (01) ==
LOC: SDC 09:23 → AC 10:13
PROVIDERS: Anesthesiology; PCP Student in an Organized Health Care Education/Training Program; Referring Provider Surgery; Visit Provider Surgery
PROC: (CPT 47610; principal; 2021-12-28 12:00)
DX: K80.10 Calculus of gallbladder with chronic cholecystitis without obstruction (principal); N40.0 Benign prostatic hyperplasia without lower urinary tract symptoms; I25.10 Atherosclerotic heart disease of native coronary artery without angina pectoris; M19.90 Unspecified osteoarthritis, unspecified site; Z95.1 Presence of aortocoronary bypass graft; Z79.82 Long term (current) use of aspirin; Z79.899 Other long term (current) drug therapy; Z87.891 Personal history of nicotine dependence
CPT/HCPCS: 47563; 00790; 84443; 85610; 85730; 88304; 93005; J7120; J2405

== ENCOUNTER 2022-11-20 18:39 | Emergency (ER) | payer MEDICARE, MEDICAID, SELFPAY ==
[2022-11-20 18:40] VITALS: BP 159/51; PULSE 76; RESP 14; TEMP 36.1; O2SAT 98; BMI 32.3
--- NOTE | 2022-11-20 19:07 | ED.VIS.DENTA ---
HPI History of Present Illness Chief Complaint: Dental Detail of Chief Complaint: Dental pain right upper tooth Informant: patient Onset/Context/Timing Onset: Days Context: Sudden Onset Timing: Continuous Quality: Pain in Location: Tooth #4 Current Severity: Mild Maximum Severity: Severe Worsened by: Call Associated Symptoms Assocated Symptom - Dental: cold sensitivity; Negative for fever, jaw swelling, face swelling or hot sensitivity Narrative Narrative: Patient is a 81-year-old male who presents with dental pain. He states the crown fell off. He will go back to the dentist who placed the crown. He has an appointment on the at a different dental center. He denies fever, chills night sweats. Denies difficulty opening closing his mouth. He denies facial swelling or redness. He denies change in voice. He denies neck pain or neck stiffness. He denies history rheumatic fever, heart murmur, mitral valve prolapse, SBE or being immune suppressed. Prior similar symptoms: Yes Recent Illness/Hospitalization: No PFSH PFS Medical History Arthritis Back pain BPH (benign prostatic hyperplasia) Cardiology follow-up encounter Coronary artery disease Easy bruising Former smoker History of irregular heartbeat History of stress test Leg cramps Thyroid disease Wears glasses Wears hearing aid Wears partial dentures Home Medications aspirin 81 mg tablet,delayed release 81 mg PO DAILY@0800 10/10/17 [History Last Taken 10/11/17] atenolol 25 mg tablet 25 mg PO DAILY 10/10/17 [History Last Taken 12/28/21] meclizine 25 mg tablet 25 mg PO PRN PRN Dizziness 10/10/17 [History Last Taken 11/03/21] hydrochlorothiazide 12.5 mg tablet 12.5 mg PO DAILY 10/07/18 [History Last Taken Unknown] lisinopril 30 mg tablet 20 mg PO BID 10/07/18 [History Last Taken 12/28/21] cetirizine 10 mg tablet 10 mg PO DAILY 11/03/21 [History Last Taken Unknown] gabapentin 400 mg capsule 400 mg PO DAILY 11/03/21 [History Last Taken Unknown] levothyroxine 75 mcg tablet 75 mcg PO DAILY 12/24/21 [History Last Taken 12/28/21] meloxicam 7.5 mg tablet (Mobic) 7.5 mg PO DAILY 12/24/21 [History Last Taken Unknown] omega-3 fatty acids 1,000 mg PO DAILY 12/24/21 [History Last Taken Unknown] psyllium husk 0.4 gram capsule (Daily Fiber) 0.4 g PO DAILY 12/24/21 [History Last Taken Unknown] tamsulosin 0.4 mg capsule 0.4 mg PO QHS 12/24/21 [History Last Taken Unknown] tramadol 50 mg tablet 50 mg PO Q6H PRN pain 3 days #10 tabs 12/28/21 [Rx Last Taken Unknown] hydrocodone-acetaminophen 5-325mg 5mg-325mg 1 tab PO Q6H PRN PRN Pain 3 days #10 TABLETS 11/20/22 [Rx Last Taken Unknown] Allergy/AdvReac Type Severity Reaction Status Date / Time atorvastatin [From Lipitor] AdvReac Other Verified 11/20/22 18:40 Surgical History History of cardiac catheterization History of cholecystectomy History of coronary artery bypass graft Hx of shoulder surgery Social History household members: none Smoking Status: Former smoker substance use type: does not use ROS ROS ED Constitutional Constitutional ED: Denies chills, fever(s) or subjective Eyes Eyes: Denies blurry vision or change in vision ENT ENT ED: Reports other Details: Documented HPI narrative ; Denies ear pain, rhinorrhea or sore throat Cardiovascular Cardiovascular: Denies chest pain or palpitations Respiratory/Chest Respiratory/Chest: Denies cough or dyspnea Gastrointestinal Gastrointestinal: Denies nausea or vomiting Integumentary Denies rash Neurologic Neurologic: Denies headache(s) Hematologic/Lymphatic Hematologic/Lymphatic: Denies easy bleeding or easy bruising EXAM Physical Exam Const Vital Signs: 11/20/22 18:40 Temperature 97 F L Temperature Source Temporal Pulse Rate 76 Respiratory Rate 14 Blood Pressure 159/51 H Blood Pressure Mean 87 Pulse Ox 98 Oxygen Delivery Method Room Air Positive well nourished, well developed and obese; Negative for cachectic or contractures General Appearance ED: well developed and NAD; Negative for cachectic, contractures or pallor Nutritional Appearance: obese; Negative for cachectic HEENT Reports TM's clear Negative for trauma Face and Sinus: Negative for sinuses nontender Tympanic Membrane ED: Yes TM's clear Mouth ED: Yes oral and palatal mucosa normal, Yes lips normal, Yes tongue normal, Yes salivary gland normal, No mouth trauma and Yes oral and palatal mucosa abnormal Mouth: oral and palatal mucosa normal, lips normal, tongue normal, salivary gland normal, No mouth trauma and oral and palatal mucosa abnormal Teeth and Gingiva: abnormal tooth and associated gingiva, caries, gingiva abnormal, poor dentition and teeth discoloration Throat: posterior oropharynx normal Eyes PERRL and EOMs intact bilaterally General Eye ED: Negative for pale conjunctiva or scleral icterus Neck no lymphadenopathy, supple and no JVD General: normal visual inspection; Negative for tenderness or submandibular swelling Lymph Lymphatic: no lymphadenopathy noted Resp normal respiratory effort and no retractions Cardio regular rate, regular rhythm, S1 normal heart sound, S2 normal heart sound and no murmurs Extremity normal to inspection Neuro oriented x3, CN's II-XII intact bilaterally and moves all extremities Psych mental status grossly normal Skin no rashes or lesions noted and no wounds General Skin Exam: Negative for pallor MDM MDM MDM Narrative Medical decision making narrative: Patient's history is consistent with reversible pulpitis. He also has a dental carry which is fractured. Since patient is on an anticoagulant and is 81 years of age with history of heart disease and hypertension will prescribe opiate analgesia for his pain. We will not prescribe an anti-inflammatory i.e. NSAID. History & Record Review Additional record(s) reviewed:: Prior inpatient record (History and physical by surgery was reviewed prior to cholecystectomy by Dr. Knight.), Prior outpatient record and Prior labs Differential Diagnosis Differential Diagnosis: Pulpitis due to dental pathology. Discharge Plan Triage Chief Complaint: Dental ED Provider: Diego Hernandez Dx/Rx/DC Orders Clinical Impression: Symptomatic reversible pulpitis, Fracture of dental confucianism, Anticoagulant long-term use Instructions: ED Dental Pain Prescriptions: New hydrocodone-acetaminophen [hydrocodone-acetaminophen] 5-325 mg tablet 1 tab PO Q6H PRN PRN (Reason: Pain) 3 Days Qty: 10 0RF No Action atenolol 25 MG tablet 25 mg PO DAILY aspirin 81 MG tablet 81 mg PO DAILY@0800 Hold Instructions: Resume on 12/30/21. meclizine 25 MG tablet 25 mg PO PRN PRN (Reason: Dizziness) lisinopril 30 MG tablet 20 mg PO BID hydrochlorothiazide 12.5 MG tablet 12.5 mg PO DAILY cetirizine 10 mg tablet 10 mg PO DAILY Label Comments: TAKE 1 TABLET BY MOUTH ONCE DAILY gabapentin 400 mg capsule 400 mg PO DAILY levothyroxine 75 mcg Tablet 75 mcg PO DAILY meloxicam [Mobic] 7.5 mg Tablet 7.5 mg PO DAILY omega-3 fatty acids Capsule 1,000 mg PO DAILY psyllium husk [Daily Fiber] 0.4 gram Capsule 0.4 g PO DAILY tamsulosin 0.4 mg Capsule 0.4 mg PO QHS tramadol 50 mg tablet 50 mg PO Q6H PRN (Reason: pain) 3 Days Qty: 10 0RF Primary Care Provider: Husam Deras Referrals: Husam Deras DO [Primary Care Provider] - Dentist,Your [STAFF PHYSICIAN] - Keep Mini appointment Disposition Disposition: Home, Self Care
== END 2022-11-20 19:30 | disposition home or self-care (01) ==
LOC: ED 19:15
PROVIDERS: Emergency Provider Emergency Medicine; PCP Student in an Organized Health Care Education/Training Program; Visit Provider Emergency Medicine
DX: K08.539 Fractured dental restorative material, unspecified (principal); I25.10 Atherosclerotic heart disease of native coronary artery without angina pectoris; I10 Essential (primary) hypertension; Z79.01 Long term (current) use of anticoagulants; K04.01 Reversible pulpitis; E66.9 Obesity, unspecified; Z87.891 Personal history of nicotine dependence
CPT/HCPCS: 99282

== ENCOUNTER → 2023-03-18 | Outpatient (CLI) | payer MEDICARE, MEDICAID, SELFPAY ==
[2023-03-18 12:40] LABS: BNP,B-Type NATRIURETIC PEPTIDE 103.5 pg/mL (0-100)
[2023-03-18 12:41] LABS: Troponin-I HS 16 pg/mL (3.0-78.0)
== END | disposition home or self-care (01) ==
LOC: LABSPEC 12:06
PROVIDERS: PCP Student in an Organized Health Care Education/Training Program; Referring Provider Nurse Practitioner Family; Visit Provider Nurse Practitioner Family
DX: R22.43 Localized swelling, mass and lump, lower limb, bilateral (principal)
CPT/HCPCS: 83880; 84484

== ENCOUNTER → 2023-04-25 | Outpatient (CLI) | payer MEDICARE, MEDICAID, SELFPAY ==
--- NOTE | 2023-04-25 12:40 | MRI_ITS ---
EXAM: MR LUMBAR SPINE WITHOUT INTRAVENOUS CONTRAST CLINICAL INDICATION: RADICULOPATHY LUMBAR REGION TECHNIQUE: Multiplanar and multisequence MR images of the lumbar spine without intravenous contrast. COMPARISON: CT November 03, 2021. FINDINGS: VERTEBRAE: Unremarkable. Vertebral body heights are preserved. Normal vertebral bodies and posterior elements. Normal alignment. No spondylolisthesis. There is preservation of the normal lumbar lordosis. SPINAL CORD: Unremarkable. Normal position and signal intensity of the conus medullaris. It is at L1. SOFT TISSUES: Unremarkable. DISCS/SPINAL CANAL/NEURAL FORAMINA: L1-L2: Normal height, decreased T2 signal intensity. Prominent anterior bulging disc and spondylosis. No evidence of spinal or neural foraminal stenosis. L2-L3: Mild decreased disc height, prominent anterior protruding disc with spondylosis, eccentric to the right, and mild diffuse annular disc bulge. Mild ligamentum flavum hypertrophy and facet joint hypertrophic changes contribute to mild spinal stenosis, the AP diameter of the midline canal is 8.1 mm. Mild proximal neural foraminal stenosis. Schmorl''s node in the superior endplate of L3. L3-L4: Normal height, decreased T2 signal intensity, annular disc bulge, anterior bilateral protruding disc and osteophytes. No evidence of significant spinal stenosis. Mild ligamentum flavum hypertrophy and facet joint hypertrophy mildly narrow the transverse diameter of the canal. AP diameter of the midline canal at least 1.1 cm. L4-L5: Normal disc height, decreased T2 signal intensity, mild right anterolateral bulging disc and spondylosis. Moderate ligamentum flavum hypertrophy and facet joint hypertrophic change contributes to narrowing of the transverse diameter of the canal. Mild spinal stenosis, AP diameter of the canal 1.2 mm. Moderate right and mild left neural foraminal stenosis. L5-S1: Small disc with mild increased T1 and T2 signal intensity and disc ossification and partial fusion, confirmed on the CT. No evidence of spinal stenosis. Prominent hypertrophic bone changes at the anterolateral disc margins and right posterior diffuse disc margin, mild narrowing of the lateral recess. No significant neural foraminal stenosis. MRI/Spine Lumbar (Routine) IMPRESSION: Multilevel degenerative changes. Multilevel mild spinal stenosis, most pronounced at L3-4, and neural foraminal stenosis, most pronounced on the right at L4-5. Electronically Signed: Madisyn Vidal MD at 8:35 EDT ,
== END | disposition home or self-care (01) ==
LOC: MRI 12:09
PROVIDERS: PCP Student in an Organized Health Care Education/Training Program; Referring Provider Anesthesiology Pain Medicine; Visit Provider Anesthesiology Pain Medicine
DX: M54.16 Radiculopathy, lumbar region (principal)
CPT/HCPCS: 72148

== ENCOUNTER 2023-07-19 12:37 | Emergency (ER) | payer MEDICARE, MEDICAID, SELFPAY ==
[2023-07-19 12:38] VITALS: BP 145/59; PULSE 70; RESP 18; TEMP 36.4; O2SAT 96
--- NOTE | 2023-07-19 12:53 | EKG12_ITS ---
Test Reason : SOB Blood Pressure : / mmHG Vent. Rate : 060 BPM Atrial Rate : 060 BPM P-R Int : 192 ms QRS Dur : 090 ms QT Int : 424 ms P-R-T Axes : -27 028 077 degrees QTc Int : 424 ms Normal sinus rhythm Nonspecific ST and T wave abnormality Abnormal ECG Confirmed by KWAKU GREENFIELD, KINGSLEY ([id number]), index editor CHANTELLE HOBSON ([id number]) on 07/25/2023 10:17:41 AM Referred By: Confirmed By:JAHAIRA AMES MD
--- NOTE | 2023-07-19 12:55 | EX.ED.DYSGE1 ---
HPI <GENIE Villegas - Last Filed: 07/19/23 15:47> History of Present Illness Chief Complaint: Shortness of Breath Narrative Narrative: 82-year-old male with past medical history of HTN, CABG 40 years ago, hypothyroidism presents with shortness of breath. He states last night at his house he felt like it was difficult to take a deep breath. He does not remember what he was doing when the symptoms started. He has had sinus congestion and rhinorrhea which improved after taking a sinus pill and blowing his nose but he still feels short of breath. Every morning he usually walks at [facility] and he was able to do this today without dyspnea but had to stop due to chronic knee pain. After reaching his car felt short of breath and decided to seek evaluation. He has no chest pain. No fever chills or cough. No GI symptoms. [facility] <GENIE Villegas - Last Filed: 07/19/23 15:47> [facility] Medical History Arthritis Back pain BPH (benign prostatic hyperplasia) Cardiology follow-up encounter Coronary artery disease Easy bruising Former smoker History of irregular heartbeat History of stress test Leg cramps Thyroid disease Wears glasses Wears hearing aid Wears partial dentures Home Medications aspirin 81 mg tablet,delayed release 81 mg PO DAILY@0800 10/10/17 [History Last Taken 10/11/17] atenolol 25 mg tablet 25 mg PO DAILY 10/10/17 [History Last Taken 12/28/21] meclizine 25 mg tablet 25 mg PO PRN PRN Dizziness 10/10/17 [History Last Taken 11/03/21] hydrochlorothiazide 12.5 mg tablet 12.5 mg PO DAILY 10/07/18 [History Last Taken Unknown] lisinopril 30 mg tablet 20 mg PO BID 10/07/18 [History Last Taken 12/28/21] cetirizine 10 mg tablet 10 mg PO DAILY 11/03/21 [History Last Taken Unknown] gabapentin 400 mg capsule 400 mg PO DAILY 11/03/21 [History Last Taken Unknown] levothyroxine 75 mcg tablet 75 mcg PO DAILY 12/24/21 [History Last Taken 12/28/21] meloxicam 7.5 mg tablet (Mobic) 7.5 mg PO DAILY 12/24/21 [History Last Taken Unknown] omega-3 fatty acids 1,000 mg PO DAILY 12/24/21 [History Last Taken Unknown] psyllium husk 0.4 gram capsule (Daily Fiber) 0.4 g PO DAILY 12/24/21 [History Last Taken Unknown] tamsulosin 0.4 mg capsule 0.4 mg PO QHS 12/24/21 [History Last Taken Unknown] tramadol 50 mg tablet 50 mg PO Q6H PRN pain 3 days #10 tabs 12/28/21 [Rx Last Taken Unknown] hydrocodone-acetaminophen 5-325mg 5mg-325mg 1 tab PO Q6H PRN PRN Pain 3 days #10 TABLETS 11/20/22 [Rx Last Taken Unknown] Allergy/AdvReac Type Severity Reaction Status Date / Time atorvastatin [From Lipitor] AdvReac Other Verified 07/19/23 12:40 Surgical History History of cardiac catheterization History of cholecystectomy History of coronary artery bypass graft Hx of shoulder surgery Social History household members: none Smoking Status: Former smoker substance use type: does not use ROS <GENIE Villegas - Last Filed: 07/19/23 15:47> ROS ED ROS Narrative Constitutional: Negative for fever, chills, malaise. ENT: Positive for rhinorrhea CVS: Negative for palpitations, chest pain, syncope. Respiratory: Positive for shortness of breath. Negative for cough, orthopnea. GI: Negative for abdominal pain, nausea, vomiting. EXAM <GENIE Villegas - Last Filed: 07/19/23 15:47> Physical Exam Narrative Exam Narrative: CONST: Patient sitting in no acute distress. EYES: Normal inspection. ENT: Normal inspection, moist mucous membranes. NECK: Normal inspection. RESP: No respiratory distress, CTAB. CVS: Regular rate and rhythm, no murmur, no gallop. SKIN: Color normal, no rash, warm, dry, intact. EXTREMITIES: Normal appearance, no pedal edema. NEURO: Oriented x4. PSYCH: Normal affect. Const Vital Signs: 07/19/23 12:38 07/19/23 12:57 07/19/23 13:02 Temperature 97.5 F L Temperature Source Temporal Pulse Rate 70 Respiratory Rate 18 Respiratory Effort Short of Breath Labored Respiratory Depth Normal Respiratory Pattern Normal Blood Pressure 145/59 H Blood Pressure Mean 87 Pulse Ox 96 97 Oxygen Delivery Method Room Air Room Air Room Air 07/19/23 13:09 07/19/23 13:49 Temperature 97.5 F L Temperature Source Temporal Pulse Rate 62 58 L Respiratory Rate 15 18 Respiratory Effort Respiratory Depth Respiratory Pattern Blood Pressure 125/58 H 140/64 H Blood Pressure Mean 80 89 Pulse Ox 93 96 Oxygen Delivery Method Room Air <Dr. Phoenix Burgos MD - Last Filed: 07/19/23 13:30> Physical Exam Const Vital Signs: 07/19/23 12:38 07/19/23 12:57 07/19/23 13:02 Temperature 97.5 F L Temperature Source Temporal Pulse Rate 70 Respiratory Rate 18 Respiratory Effort Short of Breath Labored Respiratory Depth Normal Respiratory Pattern Normal Blood Pressure 145/59 H Blood Pressure Mean 87 Pulse Ox 96 97 Oxygen Delivery Method Room Air Room Air Room Air 07/19/23 13:09 07/19/23 13:49 Temperature 97.5 F L Temperature Source Temporal Pulse Rate 62 58 L Respiratory Rate 15 18 Respiratory Effort Respiratory Depth Respiratory Pattern Blood Pressure 125/58 H 140/64 H Blood Pressure Mean 80 89 Pulse Ox 93 96 Oxygen Delivery Method Room Air MDM <GENIE Villegas - Last Filed: 07/19/23 15:47> [facility] MDM Narrative Medical decision making narrative: Patient had some recent upper respiratory symptoms and shortness of breath. He appears well nontoxic. Vital signs stable. He speaking full sentences in no distress and 96% on room air. Normal heart and lung sounds. No signs of edema are present. Due to his age and labs and cardiac work-up were done. EKG is sinus rhythm with no ischemic changes and troponin is 18. He has no chest pains I do not think he needs serial enzymes. CBC and BMP are unremarkable. CXR shows no acute process and COVID swab is negative. He does not feel short of breath presently so I think he can be discharged home with return precautions. I have personally performed a face to face assessment of the patient and have reviewed the ALEXY Note. I performed a substantive portion of the visit including all aspects of the following. My gee findings include: History is 82-year-old male who had mild shortness of breath last night and today. Said he has been blowing his nose. Denies any fever. Nonproductive cough. No chest pain. No leg swelling. No history of DVT or PE or risk factors. Prior history of cardiac disease with a prior CABG. Exam is [appearing 82-year-old male. Vital signs are stable and afebrile. Pulse ox 96% on room air no signs of hypoxia. H EENT exam unremarkable. Moist mucous membranes. Neck nontender no JVD. No lymphadenopathy. Lungs clear to auscultation bilaterally. Heart regular rate and rhythm rate about 60 no murmur. Chest wall nontender. Abdomen soft nontender. Moving all 4 extremities. Calves are nontender without edema or cords. He has normal flexion extension of both knees. Calves are nontender. Neurologically he is awake and alert with no focal motor deficits.] Medical Decision Making [82-year-old with mild transient shortness of breath is resolved. He will undergo cardiac work-up. His exam is benign.] Other additions or changes: [None] Lab Data Attestation: I reviewed the patient's lab results. Labs: Laboratory Results - last 24 hr 07/19/23 13:00 WBC 7.0 RBC 4.64 Hgb 14.1 Hct 43.8 MCV 94.4 H MCH 30.4 MCHC 32.2 RDW Std Deviation 47.0 H RDW Coeff of [place] 13.5 Plt Count 161 MPV 10.5 Immature Gran % (Auto) 0.400 Neut % (Auto) 60.2 Lymph % (Auto) 25.5 [place] % (Auto) 11.7 H Eos % (Auto) 1.8 Baso % (Auto) 0.4 Absolute Neuts (auto) 4.2 Absolute Lymphs (auto) 1.79 Nucleated RBC % 0 Sodium 137 Potassium 4.7 Chloride 104 Carbon Dioxide 29.0 Anion Gap 4 L BUN 33 H Creatinine 1.12 Est GFR (MDRD) Af Amer 81 Est GFR (MDRD) Non-Af 67 BUN/Creatinine Ratio 29.5 H Glucose 112 H Calcium 8.7 Troponin I High Sens 18 Radiography Diagnostic Testing: Clinical Impression(s) from Imaging Studies Chest X-Ray 07/19/23 13:10 IMPRESSION: Hyperinflation. The lungs are clear. Electronically Signed: Erick Hudson MD at 13:31 EST , EKG Initial EKG: Attestation: I personally reviewed and interpreted this EKG as follows: Interpretation: Sinus Rhythm and No Acute Injury Pattern Comments: Normal sinus rhythm at [address] and T wave abnormality Normal intervals <Dr. Phoenix Burgos MD - Last Filed: 07/19/23 13:30> MDM MDM Narrative Medical decision making narrative: I have personally performed a face to face assessment of the patient and have reviewed the ALEXY Note. I performed a substantive portion of the visit including all aspects of the following. My gee findings include: History is 82-year-old male who had mild shortness of breath last night and today. Said he has been blowing his nose. Denies any fever. Nonproductive cough. No chest pain. No leg swelling. No history of DVT or PE or risk factors. Prior history of cardiac disease with a prior CABG. Exam is [appearing 82-year-old male. Vital signs are stable and afebrile. Pulse ox 96% on room air no signs of hypoxia. H EENT exam unremarkable. Moist mucous membranes. Neck nontender no JVD. No lymphadenopathy. Lungs clear to auscultation bilaterally. Heart regular rate and rhythm rate about 60 no murmur. Chest wall nontender. Abdomen soft nontender. Moving all 4 extremities. Calves are nontender without edema or cords. He has normal flexion extension of both knees. Calves are nontender. Neurologically he is awake and alert with no focal motor deficits.] Medical Decision Making [82-year-old with mild transient shortness of breath is resolved. He will undergo cardiac work-up. His exam is benign.] Other additions or changes: [None] History & Record Review Discussion w/independent historian: Patient Additional record(s) reviewed:: Prior inpatient record, Prior outpatient record, Prior ED visit and Prior labs Lab Data Lab results narrative: CBC shows a normal white count of 7. H&H of 14 and 43. Platelets 161. Chemistry show a gap of 4 BUN and creatinine are 33 and 1.1. Glucose of 112. Troponin is 18. X-ray shows no acute abnormality. Prior sternotomy. Unremarkable lung rodríguez. Labs: Laboratory Results - last 24 hr 07/19/23 13:00 WBC 7.0 RBC 4.64 Hgb 14.1 Hct 43.8 MCV 94.4 H MCH 30.4 MCHC 32.2 RDW Std Deviation 47.0 H RDW Coeff of [place] 13.5 Plt Count 161 MPV 10.5 Immature Gran % (Auto) 0.400 Neut % (Auto) 60.2 Lymph % (Auto) 25.5 Pre[place] % (Auto) 11.7 H Eos % (Auto) 1.8 Baso % (Auto) 0.4 Absolute Neuts (auto) 4.2 Absolute Lymphs (auto) 1.79 Nucleated RBC % 0 Sodium 137 Potassium 4.7 Chloride 104 Carbon Dioxide 29.0 Anion Gap 4 L BUN 33 H Creatinine 1.12 Est GFR (MDRD) Af Amer 81 Est GFR (MDRD) Non-Af 67 BUN/Creatinine Ratio 29.5 H Glucose 112 H Calcium 8.7 Troponin I High Sens 18 Radiography Chest X-Ray - ED: 1 View, Read by ED Physician, Heart, Lungs, Mediastinum, Bony Structures, No Acute Disease and Chronic Changes Diagnostic Testing: Clinical Impression(s) from Imaging Studies Chest X-Ray 07/19/23 13:10 IMPRESSION: Hyperinflation. The lungs are clear. Electronically Signed: Erick Hudson MD at 13:31 EST Reading Location ID and State: [address] [place] [address] , Service support , Chest x-ray, portable, single view, interpreted by myself shows no acute abnormality. Prior sternotomy. Normal cardiac silhouette. Normal lung rodríguez. No infiltrate. No effusion. Discharge Plan Triage Chief Complaint: Shortness of Breath ED Midlevel Provider: Isabela Flores ED Provider: Phoenix Burgos Dx/Rx/DC Orders Clinical Impression: Acute upper respiratory infection, Acute dyspnea Prescriptions: No Action atenolol 25 MG tablet 25 mg PO DAILY aspirin 81 MG tablet 81 mg PO DAILY@0800 Hold Instructions: Resume on 12/30/21. meclizine 25 MG tablet 25 mg PO PRN PRN (Reason: Dizziness) lisinopril 30 MG tablet 20 mg PO BID hydrochlorothiazide 12.5 MG tablet 12.5 mg PO DAILY cetirizine 10 mg tablet 10 mg PO DAILY Patient Comments: TAKE 1 TABLET BY MOUTH ONCE DAILY gabapentin 400 mg capsule 400 mg PO DAILY levothyroxine 75 mcg Tablet 75 mcg PO DAILY meloxicam [Mobic] 7.5 mg Tablet 7.5 mg PO DAILY omega-3 fatty acids Capsule 1,000 mg PO DAILY psyllium husk [Daily Fiber] 0.4 gram Capsule 0.4 g PO DAILY tamsulosin 0.4 mg Capsule 0.4 mg PO QHS tramadol 50 mg tablet 50 mg PO Q6H PRN (Reason: pain) 3 Days Qty: 10 0RF hydrocodone-acetaminophen [hydrocodone-acetaminophen] 5-325 mg tablet 1 tab PO Q6H PRN PRN (Reason: Pain) 3 Days Qty: 10 0RF Primary Care Provider: Husam Deras Referrals: Husam Deras DO [Primary Care Provider] - Activity Restrictions/Additional Instructions: Today all of your tests look normal. COVID/flu is negative and there are no signs of pneumonia. You can continue the allergy medication/sinus meds as needed. Return to ER if symptoms worsen. Disposition Disposition: Home, Self Care Discharge Date/Time: 07/19/23 13:57
[2023-07-19 12:57] VITALS: O2SAT 97
[2023-07-19 13:02] VITALS: O2SAT 95
[2023-07-19] MEDS: Aspirin 81 MG TAB.CHEW 324 MG PO (13:06)
[2023-07-19 13:09] VITALS: BP 125/58; PULSE 62; RESP 15; TEMP 36.4; O2SAT 93
[2023-07-19 13:09] LABS: Absolute Lymphocyte Count 1.79 X10^3/uL (0.83-4.51); Absolute Neutrophil Count 4.2 X10^3/uL (2.0-7.7); Basophil# 0.03 X10^3/uL; Basophil% 0.4 % (0-1); Eosinophil# 0.13 X10^3/uL; Eosinophils% 1.8 % (0-5); Hematocrit 43.8 % (40-54); Hemoglobin 14.1 g/dL (13.0-16.5); Lymphocyte # 1.79 X10^3/ul (0.83-4.51); Lymphocyte % 25.5 % (19-41); Mean Corp Hgb Conc 32.2 g/dL (32-36); Mean Corpuscular Hgb 30.4 pg (27.0-32.0); Mean Corpuscular Volume 94.4 fL (80-94); Mean Platelet Vol. 10.5 fl (6.2-12.0); Monocyte# 0.82 X10^3/uL; Monocyte% 11.7 % (0-10); NRBC Flagged by Analyzer 0 % (0-5); Neutrophil # 4.23 X10^3/uL (2.7-7.7); Neutrophil % 60.2 % (47-70); Platelet Count 161 K/mm3 (150-450); RBC Distribution Width CV 13.5 % (11.6-14.6); Red Blood Count 4.64 M/mm3 (4.6-6.2)
--- NOTE | 2023-07-19 13:10 | RAD_ITS ---
STUDY: X-RAY CHEST REASON FOR EXAM: Male, 82 years old. Chest pain TECHNIQUE: Single AP portable view of the chest. COMPARISON: Comparison is made with prior study dated August 31, 2017. FINDINGS: EKG electrodes are seen. Hyperinflation. Scattered calcified granulomas. There is no demonstrated pleural abnormality. Sternal cerclage wires and vascular clips are present from a prior sternotomy and coronary artery bypass graft procedure (CABG). Normal mediastinum and vanesa. Normal visualized pulmonary arteries. There is atherosclerotic calcification of the aortic arch with tortuosity. There are degenerative changes of the visualized thoracic spine. There is degenerative osteoarthritis of the bilateral shoulders. There is no demonstrated abnormality of the visualized soft tissue structures of the upper abdomen. RAD/Chest 1 View (Portable) IMPRESSION: Hyperinflation. The lungs are clear. Electronically Signed: Erick Hudson MD at 13:31 EST ,
[2023-07-19 13:27] LABS: Anion Gap 4 (5-15); BUN 33 mg/dL (7-18); BUN/Creat Ratio 29.5 RATIO (10-20); Calcium,Total 8.7 mg/dL (8.5-10.1); Chloride 104 mmol/L (98-107); Creatinine, Serum 1.12 mg/dL (0.70-1.30); EST Glomerular Filtration Rate 67 mL/min (>60); Est Glom Filt Rate - Afr Amer 81 mL/min (>60); Glucose 112 mg/dL (74-106); Potassium 4.7 mmol/L (3.5-5.1); Sodium Level 137 mmol/L (136-145); Troponin-I HS (w/2H Reflex) 18 pg/mL (3.0-78.0)
[2023-07-19 13:49] VITALS: BP 140/64; PULSE 58; RESP 18; O2SAT 96
[2023-07-19 15:06] LABS: Reflex Troponin-HS? (from REC) Y
== END 2023-07-19 13:57 | disposition home or self-care (01) ==
LOC: ED 13:45
PROVIDERS: Physician Assistant; Emergency Provider Emergency Medicine; PCP Student in an Organized Health Care Education/Training Program; Visit Provider Emergency Medicine
DX: J06.9 Acute upper respiratory infection, unspecified (principal); G89.29 Other chronic pain; I25.10 Atherosclerotic heart disease of native coronary artery without angina pectoris; M25.569 Pain in unspecified knee; Z87.891 Personal history of nicotine dependence; I10 Essential (primary) hypertension; E03.9 Hypothyroidism, unspecified; Z95.1 Presence of aortocoronary bypass graft
CPT/HCPCS: 71045; 80048; 84484; 85025; 87428; 93005; 99284; A4216

== ENCOUNTER 2023-08-26 20:13 | Emergency (ER) | payer MEDICARE, MEDICAID, SELFPAY ==
[2023-08-26 20:17] VITALS: BP 160/84; PULSE 108; RESP 24; TEMP 36.7; O2SAT 95; BMI 32.2
--- NOTE | 2023-08-26 20:29 | EKG12_ITS ---
Test Reason : DYSRHYTHMIA Blood Pressure : / mmHG Vent. Rate : 102 BPM Atrial Rate : 102 BPM P-R Int : 196 ms QRS Dur : 088 ms QT Int : 356 ms P-R-T Axes : 045 062 111 degrees QTc Int : [address] depression, consider subendocardial injury Abnormal ECG Confirmed by KWAKU GREENFIELD, KINGSLEY ([id number]), photographic editor CHANTELLE HOBSON ([id number]) on 08/29/2023 1:36:29 P M Referred By: CHAPIS Confirmed By:JAHAIRA AMES MD
--- NOTE | 2023-08-26 20:29 | CT_ITS ---
We are attempting to reach an attending provider to discuss findings. An addendum with communication details will be sent when the communication is complete. INDICATION: altered mental status EXAMINATION: CT BRAIN - CT Head or Brain W/O Contrast Injection TECHNIQUE: Multiple axial images were obtained of the head without intravenous contrast. A radiation dose optimization technique was used for this scan. IV Contrast dosage and agent: None. COMPARISON: Prior CT head August 31, 2017. FINDINGS: BRAIN PARENCHYMA: Area of peripheral increased density anterior to the right temporal lobe may represent subdural hemorrhage versus hyperdense superficial right middle cerebral vein. This measures no more than 4 mm maximum thickness. No intracranial mass or mass effect. Benitez/white matter differentiation is maintained and there is no blurring of the basal ganglia. There is no hyperdense vessel. Moderately dense intimal calcifications bilateral cavernous carotid arteries. Minimal chronic small vessel ischemic changes periventricular white matter. Posterior fossa structures are unremarkable. CSF SPACES: Appropriate for age. No hydrocephalus. Basal cisterns are patent. CALVARIUM, SKULL BASE, PARANASAL SINUSES AND MASTOID AIR CELLS: Intact calvarium and skull base. No fracture or osseous lesion. Paranasal sinuses are clear. Mastoid air cells and middle ears are clear. ORBITS: Both globes, extraocular muscles, optic nerves and retrobulbar fat appear unremarkable. Evidence of prior cataract surgery. ASPECTS Score for Acute Strokes: 10 CT/Brain/Head without Contrast IMPRESSION: Questionable small area of subdural hemorrhage anterior right temporal lobe versus slightly increased density of the superficial right middle cerebral vein which is present in this area. Clinical correlation and short-term follow-up imaging is recommended. Electronically Signed: Clarke Hernandez DO at 21:43 EST ,
[2023-08-26] MEDS: 0.9% Normal Saline (1000mL) 1,000 ML 1000 ML IV (20:40)
--- NOTE | 2023-08-26 20:40 | RAD_ITS ---
INDICATION: altered mental status EXAMINATION/TECHNIQUE: X-RAY - XR Chest 1 View COMPARISON: July 19, 2023 chest x-ray FINDINGS: LINES/DEVICES: None. Intact sternotomy wires noted. LUNGS: Symmetric normal lung volumes. No airspace opacity or abnormal interstitial pattern. No nodule or mass. No pleural effusion or pneumothorax. MEDIASTINUM AND CARDIOVASCULAR STRUCTURES: Normal size and contour of the cardiomediastinal silhouette. No evidence of pulmonary vascular congestion. BONES AND SOFT TISSUES: No fracture or focal osseous lesion. Significant AC joint arthrosis. RAD/Chest 1 View (Portable) IMPRESSION: 1. No radiographic evidence of acute cardiopulmonary disease. Electronically Signed: Clarke Hernandez DO at 21:33 EST ,
[2023-08-26 20:59] LABS: Absolute Lymphocyte Count 0.79 X10^3/uL (0.83-4.51); Absolute Neutrophil Count 12.7 X10^3/uL (2.0-7.7); Basophil# 0.04 X10^3/uL; Basophil% 0.3 % (0-1); Eosinophil# 0.01 X10^3/uL; Eosinophils% 0.1 % (0-5); Hematocrit 54.7 % (40-54); Hemoglobin 17.4 g/dL (13.0-16.5); Lymphocyte # 0.79 X10^3/ul (0.83-4.51); Lymphocyte % 5.3 % (19-41); Mean Corp Hgb Conc 31.8 g/dL (32-36); Mean Corpuscular Hgb 29.6 pg (27.0-32.0); Mean Corpuscular Volume 93.2 fL (80-94); Mean Platelet Vol. 11.1 fl (6.2-12.0); Monocyte# 1.25 X10^3/uL; Monocyte% 8.4 % (0-10); NRBC Flagged by Analyzer 0 % (0-5); Neutrophil # 12.69 X10^3/uL (2.7-7.7); Neutrophil % 85.3 % (47-70); Platelet Count 124 K/mm3 (150-450); RBC Distribution Width CV 13.5 % (11.6-14.6); RBC Distribution Width SD 46.5 fl (35.1-43.9); Red Blood Count 5.87 M/mm3 (4.6-6.2); White Blood Count 14.9 K/mm3 (4.4-11.0)
[2023-08-26 21:16] LABS: Alcohol, Blood (Medical)-Serum < 3.0 mg/dL
--- NOTE | 2023-08-26 21:19 | EDS_ITS ---
HPI History of Present Illness Chief Complaint: Confusion Narrative Narrative: 82-year-old male sent in via EMS after his neighbor called the pubic patient's level of confusion. He is alert to self only. He does not know the date, month, year. He does know his name his age. He is unsure why he is here. Patient is a poor informant. [facility] Medical History Arthritis Back pain BPH (benign prostatic hyperplasia) Cardiology follow-up encounter Coronary artery disease Easy bruising Former smoker History of irregular heartbeat History of stress test Leg cramps Thyroid disease Wears glasses Wears hearing aid Wears partial dentures Home Medications aspirin 81 mg tablet,delayed release 81 mg PO DAILY@0800 10/10/17 [History Last Taken 10/11/17] atenolol 25 mg tablet 25 mg PO DAILY 10/10/17 [History Last Taken 12/28/21] meclizine 25 mg tablet 25 mg PO PRN PRN Dizziness 10/10/17 [History Last Taken 11/03/21] hydrochlorothiazide 12.5 mg tablet 12.5 mg PO DAILY 10/07/18 [History Last Taken Unknown] lisinopril 30 mg tablet 20 mg PO BID 10/07/18 [History Last Taken 12/28/21] cetirizine 10 mg tablet 10 mg PO DAILY 11/03/21 [History Last Taken Unknown] gabapentin 400 mg capsule 400 mg PO DAILY 11/03/21 [History Last Taken Unknown] levothyroxine 75 mcg tablet 75 mcg PO DAILY 12/24/21 [History Last Taken 12/28/21] meloxicam 7.5 mg tablet (Mobic) 7.5 mg PO DAILY 12/24/21 [History Last Taken Unknown] omega-3 fatty acids 1,000 mg PO DAILY 12/24/21 [History Last Taken Unknown] psyllium husk 0.4 gram capsule (Daily Fiber) 0.4 g PO DAILY 12/24/21 [History Last Taken Unknown] tamsulosin 0.4 mg capsule 0.4 mg PO QHS 12/24/21 [History Last Taken Unknown] tramadol 50 mg tablet 50 mg PO Q6H PRN pain 3 days #10 tabs 12/28/21 [Rx Last Taken Unknown] hydrocodone-acetaminophen 5-325mg 5mg-325mg 1 tab PO Q6H PRN PRN Pain 3 days #10 TABLETS 11/20/22 [Rx Last Taken Unknown] Allergy/AdvReac Type Severity Reaction Status Date / Time atorvastatin [From Lipitor] AdvReac Other Verified 08/26/23 20:22 Surgical History History of cardiac catheterization History of cholecystectomy History of coronary artery bypass graft Hx of shoulder surgery Social History household members: none Smoking Status: Former smoker substance use type: does not use ROS ROS ED Review of Systems ROS Unobtainable: due to mental condition and due to mental status EXAM Physical Exam Const Vital Signs: 08/26/23 20:17 08/26/23 22:17 08/26/23 23:00 Temperature 98.0 F 97.5 F L Temperature Source Temporal Pulse Rate 108 H 102 H 96 Respiratory Rate 24 H 30 H 17 Blood Pressure 160/84 H 166/92 H 166/92 H Blood Pressure Mean 109 116 116 Pulse Ox 95 95 25 Oxygen Delivery Method Room Air Room Air 08/26/23 21:54 Temperature Temperature Source Pulse Rate 97 Respiratory Rate 17 Blood Pressure 154/86 H Blood Pressure Mean 108 Pulse Ox 94 Oxygen Delivery Method Positive well nourished General Appearance ED: NAD; Negative for pallor HEENT Reports moist mucous membranes Negative for trauma Eyes PERRL and EOMs intact bilaterally General Eye ED: Negative for pale conjunctiva Chest Wall inspection of chest normal Resp normal respiratory effort and clear to auscultation bilaterally Auscultation: Negative for rales, rhonchi or wheezes Cardio regular rate and regular rhythm GI normal to inspection, nondistended, normoactive bowel sounds Extremity normal to inspection General Extremety ED: Yes edema General Extremity: edema Neuro CN's II-XII intact bilaterally and no sensory deficits noted Sensorium / Orientation: alert Motor Exam: strength 5/5 throughout Psych Psych Narrative: Confused Skin no rashes or lesions noted General Skin Exam: Negative for jaundice or pallor MDM MDM MDM Narrative Medical decision making narrative: Patient presenting with altered mental status. It is unclear what his baseline is but it is determined through EMS that the patient's neighbor stated that he i s AOx3, performs his own ADLs and is functional at baseline. His altered mental status is new. Differential includes intracranial hemorrhage, stroke, dehydration, anemia, UTI, pneumonia, ACS. CBC will be obtained to assess white blood cell count, hemoglobin, platelets. CMP to assess liver function and renal function, electrolytes. Urinalysis to assess for UTI. Ammonia to assess for hyperammonemia. High-sensitivity troponin and EKG to assess for ischemia/dysrhythmia. Chest x-ray to rule out pneumonia. Urine drug screen will be obtained. EtOH will be obtained as well. CBC shows slight leukocytosis at 14.9. Hemoglobin 17.4. Platelets are low at 124. Creatinine is elevated 1.60. LFTs unremarkable with exception of a bilirubin 1.8. Electrolytes unremarkable. Urinalysis negative. Urine drug screen negative. EtOH negative. Chest x-ray my interpretation shows no acute process. Radiologist interprets this and agrees. EKG on my interpretation shows sinus rhythm with a ventricular to 102 bpm without sign of ischemic change. There is some artifact. High- sensitivity troponin came back at 415. Will withhold aspirin and heparin given the patient's CT brain reading of possible right subdural hematoma. Discussed with Dr. Avila at [facility] who recommended transfer. I did obtain a CT cervical spine which was interpreted as negative. Patient will be transferred ER to ER. Impression: 1. Altered mental status 2. Subdural hematoma 3. Leukocytosis 4. NSTEMI Lab Data Attestation: I reviewed the patient's lab results. Labs: Laboratory Results - last 24 hr 08/26/23 08/26/23 20:48 22:22 WBC 14.9 H RBC 5.87 Hgb 17.4 H Hct 54.7 H MCV 93.2 MCH 29.6 MCHC 31.8 L RDW Std Deviation 46.5 H RDW Coeff of Kenia 13.5 Plt Count 124 L MPV 11.1 Immature Gran % (Auto) 0.600 Neut % (Auto) 85.3 H Lymph % (Auto) 5.3 L Hitchcock % (Auto) 8.4 Eos % (Auto) 0.1 Baso % (Auto) 0.3 Absolute Neuts (auto) 12.7 H Absolute Lymphs (auto) 0.79 L Nucleated RBC % 0 Sodium 143 Potassium 4.4 Chloride 110 H Carbon Dioxide 24.0 Anion Gap 9 BUN 47 H Creatinine 1.60 H Estim Creat Clear Calc 39.74 Est GFR (MDRD) Af Amer 54 L Est GFR (MDRD) Non-Af 44 L BUN/Creatinine Ratio 29.4 H Glucose 142 H Calcium 9.4 Total Bilirubin 1.80 H AST 45 H ALT 54 Alkaline Phosphatase 56 Ammonia 21.0 Troponin I High Sens 415 H* Total Protein 7.9 Albumin 3.6 Globulin 4.3 H Albumin/Globulin Ratio 0.8 L Urine Color Yellow Urine Clarity Sl. Cloudy Urine pH 5.0 Ur Specific Edwards 1.025 Urine Protein 500 H Urine Glucose (UA) Normal Urine Ketones 50 H Urine Occult Blood 250 H Urine Nitrite Negative Urine Bilirubin 1 H Urine Urobilinogen 1 H Ur Leukocyte Esterase 25 H Urine RBC 10-25 SEEN Urine WBC 0-5 SEEN Ur Squamous Epith Cells 0-5 SEEN Amorphous Sediment 1+ URATE Urine Bacteria 0 SEEN Hyaline Casts 0-5 SEEN Fine Granular Casts 0-5 SEEN Urine Mucus 0 SEEN Urine Opiates Screen NEGATIVE Urine Methadone Screen NEGATIVE Ur Barbiturates Screen NEGATIVE Ur Phencyclidine Scrn NEGATIVE Ur Amphetamines Screen NEGATIVE MDMA (Ecstasy) Screen NEGATIVE U Benzodiazepines Scrn NEGATIVE Urine Cocaine Screen NEGATIVE U Cannabinoids Screen NEGATIVE Ur Drug Screen Comment Ethyl Alcohol < 3.0 Radiography Diagnostic Testing: Clinical Impression(s) from Imaging Studies Brain CT 08/26/23 20:29 IMPRESSION: Questionable small area of subdural hemorrhage anterior right temporal lobe versus slightly increased density of the superficial right middle cerebral vein which is present in this area. Clinical correlation and short-term follow-up imaging is recommended. Electronically Signed: Clarke Hernandez DO at 21:43 EST , ADDENDUM: 08/26/23 2221 IMPRESSION: Questionable small area of subdural hemorrhage anterior right temporal lobe versus slightly increased density of the superficial right middle cerebral vein which is present in this area. Clinical correlation and short-term follow-up imaging is recommended. N.B. : The above Results were Read Back by Clarke Hernandez DO to Dr. Garrett Reinoso DO, and understanding confirmed on 08/26/2023 22:14:19 (ET). Electronically Signed: Clarke Hernandez DO at 21:43 EST , Chest X-Ray 08/26/23 20:40 IMPRESSION: 1. No radiographic evidence of acute cardiopulmonary disease. Electronically Signed: Clarke DO Mary at 21:33 EST , Cervical Spine CT 08/26/23 21:46 IMPRESSION: No fracture or focal malalignment. Degenerative changes as above. Electronically Signed: Clarke Hernandez DO at 22:28 EST , Discharge Plan Triage Chief Complaint: Confusion ED Provider: Garrett Reinoso Dx/Rx/DC Orders Prescriptions: No Action atenolol 25 MG tablet 25 mg PO DAILY aspirin 81 MG tablet 81 mg PO DAILY@0800 Hold Instructions: Resume on 12/30/21. meclizine 25 MG tablet 25 mg PO PRN PRN (Reason: Dizziness) lisinopril 30 MG tablet 20 mg PO BID hydrochlorothiazide 12.5 MG tablet 12.5 mg PO DAILY cetirizine 10 mg tablet 10 mg PO DAILY Patient Comments: TAKE 1 TABLET BY MOUTH ONCE DAILY gabapentin 400 mg capsule 400 mg PO DAILY levothyroxine 75 mcg Tablet 75 mcg PO DAILY meloxicam [Mobic] 7.5 mg Tablet 7.5 mg PO DAILY omega-3 fatty acids Capsule 1,000 mg PO DAILY psyllium husk [Daily Fiber] 0.4 gram Capsule 0.4 g PO DAILY tamsulosin 0.4 mg Capsule 0.4 mg PO QHS tramadol 50 mg tablet 50 mg PO Q6H PRN (Reason: pain) 3 Days Qty: 10 0RF hydrocodone-acetaminophen [hydrocodone-acetaminophen] 5-325 mg tablet 1 tab PO Q6H PRN PRN (Reason: Pain) 3 Days Qty: 10 0RF Primary Care Provider: Husam Deras: Husam Deras, [Primary Care Provider] -
[2023-08-26 21:27] LABS: ALB/GLOB Ratio 0.8 RATIO (0.9-2.4); AST(SGOT) 45 U/L (15-37); Alanine Aminotransfer ALT/SGPT 54 U/L (16-61); Albumin, Serum 3.6 g/dL (3.2-5.0); Alkaline Phosphatase 56 U/L (45-117); Anion Gap 9 (5-15); BUN 47 mg/dL (7-18); BUN/Creat Ratio 29.4 RATIO (10-20); Calcium,Total 9.4 mg/dL (8.5-10.1); Chloride 110 mmol/L (98-107); EST Glomerular Filtration Rate 44 mL/min (>60); Est Glom Filt Rate - Afr Amer 54 mL/min (>60); Estimated Creatinine Clearance 39.74 ml/min; Globulin 4.3 g/dL (2.2-4.2); Glucose 142 mg/dL (74-106); Potassium 4.4 mmol/L (3.5-5.1); Protein, Total 7.9 g/dL (6.4-8.2); Sodium Level 143 mmol/L (136-145); Troponin-I HS 415 pg/mL (3.0-78.0)
--- NOTE | 2023-08-26 21:46 | CT_ITS ---
INDICATION: trauma EXAMINATION: CT CERVICAL SPINE - CT Spine Cervical W/O Contrast Injection TECHNIQUE: Helically acquired images were obtained of the cervical spine. 2D reformatted images were reviewed. A radiation dose optimization technique was used for this scan. IV Contrast dosage and agent: None. COMPARISON: No relevant prior comparison studies available. FINDINGS: VERTEBRAE: No fracture or traumatic subluxation. No discrete lytic or blastic abnormality. Normal alignment. Normal craniocervical junction and cervicothoracic junction. DISCS and SPINAL CANAL: Degenerative changes C1-C2 articulation. Multilevel degenerative endplate changes and intervertebral disc height loss, most notable at C3-4, C4-5 and C5-6. Moderate severe facet arthropathy at C3-4 and C4-5. No evidence of severe central spinal canal stenosis. NECK SOFT TISSUES: No prevertebral soft tissue swelling. There is no cervical adenopathy. Somewhat limited assessment due to moderate motion. LUNG APICES: No consolidation or nodule. Assessment is limited due to motion however there is probable mild centrilobular and paraseptal emphysema. CT/Spine Cervical without Contras IMPRESSION: No fracture or focal malalignment. Degenerative changes as above. Electronically Signed: Clarke Hernandez DO at 22:28 [facility] ,
[2023-08-26 21:54] VITALS: BP 154/86; PULSE 97; RESP 17; O2SAT 94
[2023-08-26 22:17] VITALS: BP 166/92; PULSE 102; RESP 30; TEMP 36.4; O2SAT 95
--- NOTE | 2023-08-26 22:28 | ED.RN ---
PT ACCEPTED TO [facility] ED DR. OSORIO N2N [id number], [facility] ETA 230
[2023-08-26 22:29] LABS: Bacteria 0 SEEN /hpf (None Seen); Mucous, Urine 0 SEEN /hpf (<or=2+)
[2023-08-26 22:33] LABS: Color, Urine Yellow (Yellow); Glucose, Dipstick Normal (Normal); Ketone-Dipstick 50 mg/dl (Negative); Leukocyte Esterase-Dipstick 25 /ul (Negative); Nitrite-Dipstick Negative (Negative); Occult Blood-Urine 250 /ul (Negative); Protein-Dipstick 500 mg/dl (Negative); Specific Gravity, Urine 1.025 (1.002-1.030); Urine Clarity Sl. Cloudy (Clear); Urine Urobilinogen 1 mg/dl (Normal)
[2023-08-26 22:37] LABS: Urine Bilirubin Dipstick 1 mg/dL (Negative)
[2023-08-26 22:41] LABS: Fine Granular Cast- Urine 0-5 SEEN /lpf (0-5); Hyaline Cast 0-5 SEEN /lpf (0-5); Red Blood Cells-Urine 10-25 SEEN /hpf (0-5); Squamous Epithelial Cells - UA 0-5 SEEN /hpf (0-5); White Blood Cells 0-5 SEEN /hpf (0-5)
[2023-08-26 22:42] LABS: Amorphous Sediment 1+ URATE
[2023-08-26 22:52] LABS: Amphetamine Urine VISTA NEGATIVE (<1000 ng/mL); Barbiturate Urine VISTA NEGATIVE (< 200 ng/mL); Benzodiazepine Urine VISTA NEGATIVE (< 200 ng/mL); Cocaine Urine VISTA NEGATIVE (< 300 ng/mL); Ecstacy Urine VISTA NEGATIVE (< 500 ng/mL); Methadone Urine VISTA NEGATIVE (< 300 ng/mL); PCP Urine VISTA NEGATIVE (< 25 ng/mL); THC Urine VISTA NEGATIVE (< 50 ng/mL); Vista UDS pH Range 5
[2023-08-26 23:00] VITALS: BP 166/92; PULSE 96; RESP 17; O2SAT 25
== END 2023-08-26 23:38 | disposition short-term general hospital (02) ==
LOC: ED 21:45
PROVIDERS: Emergency Provider Student in an Organized Health Care Education/Training Program; PCP Student in an Organized Health Care Education/Training Program; Visit Provider Student in an Organized Health Care Education/Training Program
DX: R41.82 Altered mental status, unspecified (principal); I21.4 Non-ST elevation (NSTEMI) myocardial infarction; D72.829 Elevated white blood cell count, unspecified; Z87.891 Personal history of nicotine dependence; I25.10 Atherosclerotic heart disease of native coronary artery without angina pectoris; Z79.82 Long term (current) use of aspirin; Z79.01 Long term (current) use of anticoagulants
CPT/HCPCS: 70450; 71045; 72125; 80053; 80307; 81001; 82077; 82140; 84484; 85025; 87428; 93005; 96360; 99285; J7030; P9612; A4216

== ENCOUNTER 2023-09-13 20:03 | Inpatient (IN) | payer MEDICARE, MEDICAID, SELFPAY ==
[2023-09-13 20:05] VITALS: BP 107/79; PULSE 73; RESP 17; TEMP 36.1; O2SAT 92; BMI 33.7
[2023-09-13 20:15] VITALS: O2SAT 86
--- NOTE | 2023-09-13 20:20 | CT_ITS ---
STUDY: CT BRAIN WITHOUT CONTRAST REASON FOR EXAM: Male, 82 years old. ams RADIATION DOSAGE (If Supplied By Facility): CTDIvol = ( 44.99 ) mGy, DLP = ( 846.73 ) mGycm TECHNIQUE: Transaxial CT imaging of the brain was performed without administration of intravenous contrast material. Individualized dose optimization techniques were used for this CT. COMPARISON: August 26, 2023 FINDINGS: Normal soft tissue structures. Normal calvarium. Prominent ventricles and extra-axial spaces with mild atrophy. Normal white matter tracts of the cerebral hemispheres. Normal basal ganglia and thalami. Normal brainstem. Normal cerebellum. There is no intracranial hemorrhage. There are no findings of an acute ischemic infarction. Normal visualized paranasal sinuses. CT/Brain/Head without Contrast IMPRESSION: No acute intracranial pathology of the brain. Electronically Signed: Suman Francois DO at 20:38 EST ,
--- NOTE | 2023-09-13 20:20 | CT_ITS ---
STUDY: CT CERVICAL SPINE WITHOUT CONTRAST REASON FOR EXAM: Male, 82 years old. Trauma RADIATION DOSAGE (If Supplied By Facility): CTDIvol = ( 30.00 ) mGy, DLP = ( 672.43 ) mGycm TECHNIQUE: High resolution transaxial imaging was performed without contrast material. Sagittal and coronal images were reconstructed. Individualized dose optimization techniques were used for this CT. COMPARISON: None FINDINGS: Normal craniovertebral junction. Normal anterior atlantoaxial articulation. Normal odontoid process. Normal cervical lordosis. Normal vertebral bodies and posterior osseous elements. C2-3: Normal endplates. Normal disc height and morphology. Normal central canal. Facet hypertrophy slightly narrowing the left intervertebral neural foramen. C3-4: Spurring at the endplates. Normal disc height with a small central disc herniation. Normal central canal. Facet hypertrophy and uncovertebral spurring narrowing the intervertebral neuroforamina, right more than left. C4-5: Spurring at the endplates. Slightly narrowed disc height. Normal central canal. Facet hypertrophy and uncovertebral spurring narrowing the intervertebral neuroforamina, right more than left.. C5-6: Spurring at the endplates. Slightly narrowed disc height. Normal central canal. Facet hypertrophy and uncovertebral spurring narrowing the intervertebral neuroforamina, right more than left.. C6-7: Normal endplates. Normal disc height and morphology. Normal central canal and intervertebral neuroforamina. C7-T1: Normal endplates. Normal disc height and morphology. Normal central canal and intervertebral neuroforamina. Normal visualized soft tissue structures. 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 Electronically Signed: Suman Francois DO at 20:45 EST Reading Location ID and State: [facility] / [place] Tel [phone], Service support ,
--- NOTE | 2023-09-13 20:40 | RAD_ITS ---
INDICATION: chest pain EXAMINATION/TECHNIQUE: X-RAY - XR Chest 1 View COMPARISON: FINDINGS: LINES/DEVICES: Sternotomy wires are present. LUNGS: Left basilar infiltrate/atelectasis. Effusion at the left costophrenic angle. No pneumothorax. MEDIASTINUM AND CARDIOVASCULAR STRUCTURES: Cardiac silhouette not enlarged. Central airways and mediastinal contour are unremarkable. BONES AND SOFT TISSUES: Degenerative vertebral changes. RAD/Chest 1 View (Portable) IMPRESSION: Left basilar infiltrate/atelectasis. Effusion at the left costophrenic angle. Electronically Signed: Suman Francois DO at 20:53 EST Reading Location ID and State: [facility] / [place] Tel [phone], Service support ,
--- OUTSIDE RECORDS SUMMARY | 2023-09-13 20:42 | XMS RPT_ITS | CCD ---
Author Name Unknown Address [address] [place] [address] Organization [facility] Care Team Providers Care [employer] Name Role Phone JOHN, JOSE E Unavailable Unavailable JOHN, JOSE E Unavailable Unavailable JOHN, JOSE E Unavailable Unavailable JOHN, JOSE E Unavailable Unavailable JOHN, JOSE E Unavailable Unavailable JOHN, JOSE E Unavailable Unavailable JOHN, JOSE E Unavailable Unavailable JOHN, JOSE E Unavailable Unavailable BRAEDEN HUSAM L Unavailable Unavailable JOHN, JOSE E Unavailable Unavailable JOHN, JOSE E Unavailable Unavailable HUSAM DERAS Unavailable Unavailable Braeden GUTIERREZ Husam Ebony Primary Care Provider Mena Machuca DO Unavailable Mattham, Idane L Unavailable Yasmin Marquez RN Unavailable Braeden GUTIERREZ Husam Ebony Primary Care Provider Mena Machuca DO D Unavailable Robotham, Diane L Unavailable Yasmin Marquez RN Unavailable Husam Deras DO Primary Care Provider Robotham, Diane L Unavailable Yasmin Marquez RN Unavailable Humberto Wang RN Unavailable Braeden GUTIERREZ Husam Ebony Primary Care Provider Mena Machuca DO Unavailable Reshma, Diane L Unavailable Humberto Wang RN Unavailable Annetta LAURA, Denisse Unavailable Humberto Wang RN Unavailable [phone] DERAS, HUSAM L Primary Care Unavailable GIDEON BUENO Referring Unavailab le Robotham, Diane L Unavailable Annetta LAURA, Denisse Unavailable Diane Justice MD Unavailable Nasim Justice MDera L Unavailable DERAS, HUSAM L Attending Unavailable DERAS, HUSAM L Primary Care Unavailable DERAS, HUSAM L Primary Care Unavailable GIDEON BUENO Referring Unavailab le DERAS, HUSAM L Primary Care Unavailable DERAS, HUSAM L Referring Unavailable DERAS, HUSAM L Primary Care Unavailable DERAS, HUSAM L Primary Care Unavailable DERAS, HUSAM L Attending Unavailable DERAS, HUSAM L Primary Care Unavailable HARVINDER VERDE Referring Unavailable DERAS, HUSAM L Primary Care Unavailable MENA MACHUCA Referring Unavailable DERAS, HUSAM L Primary Care Unavailable KAY JOSE M Huy Referring Unavailable JOSE M KAY Attending Unavailable DERAS, HUSAM L Referring Unavailable DERAS, HUSAM L Primary Care Unavailable DERAS, HUSAM L Referring Unavailable ERIKA, STU Attending Unavailable DERAS, HUSAM L Primary Care Unavailable PODLOGARJOCELIN Attending Unavailable DERAS, HUSAM L Primary Care Unavailable PODLOGJOCELIN GUPTA Referring Unavailable DERAS, HUSAM L Primary Care Unavailable PODLOGARJOCELIN Referring Unavailable DERAS, HUSAM L Primary Care Unavailable ERIKA, STU Attending Unavailable DERAS, HUSAM L Primary Care Unavailable ERIKA, STU Referring Unavailable DERAS, HUSAM L Primary Care Unavailable PODLOGARJOCELIN Referring Unavailable DERAS, HUSAM L Primary Care Unavailable AURELIA TREVINO Attending Unavailable CROW DAMIAN Referring Unavailable CROW DAMIAN Attending Unavailable DERAS, HUSAM L Primary Care Unavailable DERAS, HUSAM L Referring Unavailable DERAS, HUSAM L Primary Care Unavailable DERAS, HUSAM L Primary Care Unavailable HARVINDER VERDE Referring Unavailable SEBLE ZEPEDA Referring Unavailable SEBLE ZEPEDA Attending Unavailable DERAS, HUSAM L Primary Care Unavailable SEBLE ZEPEDA Referring Unavailable DERASHUSAM Primary Care Unavailable DERASHUSAM Attending Unavailable DERASHUSAM L Primary Care Unavailable DERAS, HUSAM L Primary Care Unavailable MENA MACHUCA Referring Unavailable MENA MACHUCA Attending Unavailable DERAS, HUSAM L Primary Care Unavailable HARVINDER VERDE Attending Unavailable DERAS, HUSAM L Primary Care Unavailable HARVINDER VERDE Referring Unavailable DERAS HUSAM L Primary Care Unavailable HARVINDER VERDE Referring Unavailable DERAS, HUSAM L Primary Care Unavailable HARVINDER VERDE Attending Unavailable DERAS, HUSAM L Primary Care Unavailable GIDEON BUENO Referring Unavailab GIDEON Payan Attending Unavailab edel ERAZODERAS, HUSAM L Primary Care Unavailable MENA MACHUCA Referring Unavailable JAY MATHEW Attending UnavailSOHEILA Beasley Unavailable ARMANDO BANKS Admitting Unavailable DERAS, HUSAM L Primary Care Unavailable Allergies Allergy Classification Reported Allergen(s) Allergy Type Date of Onset Reaction(s) Facility (20 sources) atorvastatin; Translations: [ATORVASTATIN] Drug Allergy 08-16-2007 Intolerance [facility] Repository Medications Current Medications Medication Drug Class(es) Dates Sig (Normalized) Sig (Original) perflutren lipid microspheres 1.3 mL in NaCl (PF) 0.9% 10 mL injection (DEFINITY) (20 sources) Start: 03-18-2023 End: 06-16-2024 perflutren lipid microspheres 1.3 mL in NaCl (PF) 0.9% 10 mL injection (DEFINITY) Completed/Discontinued Medications Medication Drug Class(es) Dates Sig (Normalized) Sig (Original) [id number] actuat albuterol 0.09 mg/actuat metered dose inhaler (20 sources) beta2-Adrenergic Agonist Start: 07-20-2023 take 2 puff(s) by inhalation every four hours as needed for wheezing albuterol HFA (PROVENTIL HFA, VENTOLIN HFA) 90 mcg/actuation inhaler Indications: SOB (shortness of breath) Inhale 2 Puffs as instructed every 4 hours as needed for wheezing/shortnes s of breath. 18 g 1 07/20/2023 Suspended Problems Active Problems Problem Classification Problem Date Documented Date Episodic/Chronic Acute and unspecified renal failure (1 source) Acute kidney failure, unspecified; Translations: [ALEX (acute kidney injury) (HCC)] Onset: 3 Episodic Acute cerebrovascular disease (2 sources) Hematoma of subdural space of neuraxis; Translations: [SDH (subdural hematoma) (HCC)] Onset: 3 08-27-2023 Chronic Asthma (20 sources) Uncomplicated moderate persistent asthma; Translations: [Moderate persistent asthma, uncomplicated] Onset: 2 Chronic Cardiac dysrhythmias (20 sources) Ventricular premature beats; Translations: [Ventricular premature depolarization] Onset: 4 07-01-2014 Chronic Chronic obstructive pulmonary disease and bronchiectasis (20 sources) Chronic obstructive lung disease; Translations: [Chronic obstructive pulmonary disease, unspecified] Onset: 7 08-07-2010 Chronic Conditions associated with dizziness or vertigo (20 sources) Dizziness; Translations: [Dizziness and giddiness] Onset: 8 12-19-2017 Episodic Coronary atherosclerosis and other heart disease (20 sources) Coronary atherosclerosis; Translations: [Atherosclerotic heart disease of [place] coronary artery without angina pectoris] Onset: 8 10-18-2017 Chronic Disorders of lipid metabolism (20 sources) Mixed hyperlipidemia; Translations: [Mixed hyperlipidemia] Onset: 8 02-16-2008 Chronic Essential hypertension (20 sources) Essential (primary) hypertension; Translations: [Essential hypertension] Onset: 5 07-11-2015 Chronic Gout and other crystal arthropathies (1 source) Chondrocalcinosis of knee joint; Translations: [Other chondrocalcinosis, unspecified knee] 04-18-2023 Chronic Hyperplasia of prostate (20 sources) Benign prostatic hyperplasia; Translations: [Benign prostatic hyperplasia without lower urinary tract symptoms] Onset: 1 01-20-2021 Chronic Immunizations and screening for infectious disease (2 sources) Patient encounter status; Translations: [Encounter for immunization] Episodic Intracranial injury (1 source) 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 of unspecified duration, initial encounter; Translations: [Intracranial hemorrhage following injury, with loss of consciousness, initial encounter ([facility])] Onset: 3 Episodic Nutritional deficiencies (20 sources) Vitamin D deficiency; Translations: [Vitamin D deficiency, unspecified] Onset: 1 07-21-2021 Chronic Occlusion or stenosis of precerebral arteries (17 sources) Bilateral stenosis of carotid arteries; Translations: [Occlusion and stenosis of bilateral carotid arteries] Onset: 3 Chronic Osteoarthritis (20 sources) Localized, primary osteoarthritis; Translations: [Unilateral primary osteoarthritis, unspecified knee] Onset: 7 08-07-2010 Chronic Other ear and sense organ disorders (20 sources) Hearing loss; Translations: [Unspecified hearing loss, unspecified ear] 08-07-2010 Chronic Other lower respiratory disease (2 sources) Hypoxemia; Translations: [Hypoxemia] 07-20-2023 Episodic Other lower respiratory disease (1 source) Hypoxemia; Translations: [Exercise hypoxemia] Onset: 3 Episodic Other nervous system disorders (20 sources) Disorder of the peripheral nervous system; Translations: [Hereditary and idiopathic neuropathy, unspecified] Onset: 3 10-21-2022 Chronic Other nervous system disorders (1 source) Hereditary and idiopathic neuropathy, unspecified; Translations: [Hereditary and idiopathic peripheral neuropathy] Onset: 3 Chronic Other nervous system disorders (1 source) Other chronic pain; Translations: [Chronic pain of both knees] Onset: 9 Chronic Other nervous system disorders (1 source) Paresthesia of foot ; Translations: [Anesthesia of skin] Episodic Other nutritional; endocrine; and metabolic disorders (20 sources) Obese class I; Translations: [Obesity, unspecified] Onset: 8 10-18-2017 Chronic Other screening for suspected conditions (not mental disorders or infectious disease) (20 sources) Electrocardiogram abnormal; Translations: [Abnormal electrocardiogram [ECG] [EKG]] Onset: 4 Episodic Other skin disorders (3 sources) Bilateral localized swelling of lower legs; Translations: [Localized swelling, mass and lump, lower limb, bilateral] Episodic Other upper respiratory disease (20 sources) Allergic rhinitis; Translations: [Allergic rhinitis, unspecified] Onset: 8 12-19-2017 Chronic Other upper respiratory disease (1 source) Seasonal allergic rhinitis; Translations: [Other allergic rhinitis] Chronic Other upper respiratory disease (1 source) Congestion of nasal sinus; Translations: [Nasal congestion] 07-20-2023 Episodic Peripheral and visceral atherosclerosis (20 sources) Peripheral vascular disease, unspecified; Translations: [Peripheral vascular disease, unspecified] Onset: 9 03-16-2019 Chronic Residual codes; unclassified (1 source) Bilateral lower limb edema; Translations: [Localized edema] Episodic Residual codes; unclassified (1 source) Procedure not done; Translations: [Procedure and treatment not carried out, unspecified reason] 07-19-2023 Episodic Residual codes; unclassified (1 source) Confusional state; Translations: [Disorientation, unspecified] Onset: 3 08-27-2023 Episodic Residual codes; unclassified (1 source) Altered mental status, unspecified; Translations: [Altered mental status, unspecified altered mental status type] Onset: 3 Episodic Screening and history of mental health and substance abuse codes (1 source) Ex-smoker; Translations: [Personal history of nicotine dependence] 07-21-2023 Episodic Thyroid disorders (20 sources) Hypothyroidism; Translations: [Hypothyroidism, unspecified] Onset: 2 10-19-2021 Chronic Unclassified (1 source) Unknown / UNK(Unknown) Onset: 5 Past or Other Problems Problem Classification Problem Date Documented Date Episodic/Chronic Coronary atherosclerosis and other heart disease (3 sources) Presence of aortocoronary bypass graft; 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] Onset: 10-25-2022 Episodic Diabetes mellitus without complication (20 sources) Hyperglycemia; Translations: [Impaired fasting glucose] Onset: 12-19-2017 12-19-2017 Episodic Fluid and electrolyte disorders (3 sources) Hyperkalemia; Translations: [Hyperkalemia] Onset: 04-26-2023 04-26-2023 Episodic Nonmalignant breast conditions (20 sources) Gynecomastia; Translations: [Hypertrophy of breast] Onset: 07-20-2012 07-20-2012 Episodic Other and unspecified benign neoplasm (20 sources) Benign neoplasm of colon; Translations: [Benign neoplasm of colon, unspecified] Onset: 02-01-2008 02-01-2008 Episodic Other connective tissue disease (20 sources) Full thickness rotator cuff tear; Translations: [Complete rotator cuff tear or rupture of right shoulder, not specified as traumatic] Onset: 09-02-2015 09-02-2015 Episodic Other connective tissue disease (20 sources) Pain in right lower limb; Translations: [Pain in right leg] Onset: 10-23-2019 10-23-2019 Episodic Other connective tissue disease (12 sources) Bilateral calf pain; Translations: [Pain in right lower leg] Onset: 04-27-2023 04-27-2023 Episodic Other connective tissue disease (1 source) Pain in right leg; Translations: [Pain of right lower extremity] Onset: 10-23-2019 Episodic Other lower respiratory disease (20 sources) Dyspnea; Translations: [Shortness of breath] Onset: 02-01-2022 Episodic Other lower respiratory disease (20 sources) Restrictive lung disease; Translations: [Other disorders of lung] Onset: 04-14-2022 Episodic Other lower respiratory disease (1 source) Shortness of breath; Translations: [SOB (shortness of breath)] Onset: 02-01-2022 Episodic Other nervous system disorders (2 sources) Anesthesia of skin; Translations: [Numbness and tingling of foot] Onset: 01-04-2023 Episodic Other nervous system disorders (2 sources) Paresthesia of skin; Translations: [Numbness and tingling of foot] Onset: 01-04-2023 Episodic Other non-traumatic joint disorders (20 sources) Shoulder pain; Translations: [Pain in right shoulder] Onset: 08-09-2012 08-09-2012 Episodic Other non-traumatic joint disorders (20 sources) Shoulder joint pain; Translations: [Pain in unspecified shoulder] Onset: 02-10-2015 02-10-2015 Episodic Other non-traumatic joint disorders (20 sources) Pain in right knee; Translations: [Pain in joint, lower leg] Onset: 04-20-2019 04-20-2019 Episodic Other non-traumatic joint disorders (20 sources) Pain in right shoulder; Translations: [Pain in joint, shoulder region] Onset: 08-09-2012 08-09-2012 Episodic Other non-traumatic joint disorders (2 sources) Pain in left knee; Translations: [Pain in both knees, unspecified chronicity] Onset: 04-20-2019 Episodic Other nutritional; endocrine; and metabolic disorders (20 sources) Weight gain; Translations: [Abnormal weight gain] Onset: 07-21-2021 07-21-2021 Episodic Other skin disorders (20 sources) Actinic keratosis; Translations: [Actinic keratosis] Onset: 01-20-2021 01-20-2021 Episodic Other skin disorders (1 source) Localized swelling, mass and lump, lower limb, bilateral; Translations: [Localized swelling of both lower legs] Onset: 03-18-2023 Episodic Residual codes; unclassified (20 sources) Family history of malignant neoplasm of gastrointestinal tract; Translations: [Family history of malignant neoplasm of digestive organs] Onset: 08-16-2007 08-07-2010 Episodic Spondylosis; intervertebral disc disorders; other back problems (20 sources) Spinal stenosis of lumbar region; Translations: [Spinal stenosis, lumbar region with neurogenic claudication] Onset: 04-09-2021 04-09-2021 Episodic Results Test Name Value Interpretation Reference Range Facil ity Vital Signs Date Time Vital Sign Value Performing Clinician Faci lity 07-21-2023 12:43-0500 Body height 177.5 cm Aurelia Trevino MD Work Phone: [facility] 07-21-2023 12:43-0500 Body weight 111.58 kg Aurelia Trevino MD Work Phone: [facility] 07-21-2023 12:43-0500 Diastolic blood pressure 58 mm[Hg] Aurelia Trevino MD Work Phone: [facility] 07-21-2023 12:43-0500 Heart rate 59 /min Aurelia Trevino MD Work Phone: [facility] 07-21-2023 12:43-0500 Respiratory rate 14 /min Aurelia Trevino MD Work Phone: [facility] 07-21-2023 12:43-0500 SaO2% (BldA) [Mass fraction] 95 % Aurelia Trevino MD Work Phone: [facility] 07-21-2023 12:43-0500 Systolic blood pressure 122 mm[Hg] Aurelia Trevino MD Work Phone: [facility] 07-20-2023 14:55-0500 Body weight 112.31 kg Jocelin Henry APRN.CNP Work Phone: [facility] 07-20-2023 14:55-0500 Diastolic blood pressure 64 mm[Hg] Jocelin Podlogar TECHNICAL SALES ADVISOR.PRECIPITATOR OPERATOR Work Phone: [facility] 07-20-2023 14:55-0500 Heart rate 54 /min Jocelin Podlogar TECHNICAL SALES ADVISOR.PRECIPITATOR OPERATOR Work Phone: [facility] 07-20-2023 14:55-0500 Respiratory rate 26 /min Jocelin Podlogar TECHNICAL SALES ADVISOR.PRECIPITATOR OPERATOR Work Phone: [facility] 07-20-2023 14:55-0500 SaO2% (BldA) [Mass fraction] 92 % Jocelin Podlogar TECHNICAL SALES ADVISOR.PRECIPITATOR OPERATOR Work Phone: [facility] 07-20-2023 14:55-0500 Systolic blood pressure 128 mm[Hg] Jocelin Podlogar TECHNICAL SALES ADVISOR.PRECIPITATOR OPERATOR Work Phone: [facility] 07-19-2023 12:16-0500 Body temperature 97.5 [degF] Zachary Pendlebury TECHNICAL SALES ADVISOR.PRECIPITATOR OPERATOR Work Phone: [facility] 07-19-2023 12:16-0500 Body weight 112.04 kg Zachary Pendlebury TECHNICAL SALES ADVISOR.PRECIPITATOR OPERATOR Work Phone: [facility] 07-19-2023 12:16-0500 Diastolic blood pressure 60 mm[Hg] Zachary Pendlebury TECHNICAL SALES ADVISOR.PRECIPITATOR OPERATOR Work Phone: [facility] 07-19-2023 12:16-0500 Heart rate 72 /min Zachary Pendlebury TECHNICAL SALES ADVISOR.PRECIPITATOR OPERATOR Work Phone: [facility] 07-19-2023 12:16-0500 Respiratory rate 16 /min Zachary Pendlebury TECHNICAL SALES ADVISOR.PRECIPITATOR OPERATOR Work Phone: [facility] 07-19-2023 12:16-0500 SaO2% (BldA) [Mass fraction] 94 % Zachary Pendlebury TECHNICAL SALES ADVISOR.PRECIPITATOR OPERATOR Work Phone: [facility] 07-19-2023 12:16-0500 Systolic blood pressure 122 mm[Hg] Zachary Pendlebury TECHNICAL SALES ADVISOR.PRECIPITATOR OPERATOR Work Phone: [facility] 04-27-2023 12:27-0400 Body temperature 98.01 [degF] Husam Deras DO Work Phone: [facility] 04-27-2023 12:27-0400 Body weight 110.22 kg Husam Deras DO Work Phone: [facility] 04-27-2023 12:27-0400 Diastolic blood pressure 60 mm[Hg] Husam Deras DO Work Phone: [facility] 04-27-2023 12:27-0400 Heart rate 64 /min Husam Deras DO Work Phone: [facility] 04-27-2023 12:27-0400 Respiratory rate 20 /min Husam Deras DO Work Phone: [facility] 04-27-2023 12:27-0400 Systolic blood pressure 138 mm[Hg] Husam Deras DO Work Phone: [facility] 04-26-2023 08:36-0400 Body height 177.8 cm Gideon Bueno DO Work Phone: [facility] 04-26-2023 08:36-0400 Body weight 109.77 kg Gideon Bueno DO Work Phone: [facility] 04-26-2023 08:36-0400 Diastolic blood pressure 62 mm[Hg] Gideongabrielle Bueno DO Work Phone: [facility] 04-26-2023 08:36-0400 Heart rate 60 /min Gideongabrielle Bueno DO Work Phone: [facility] 04-26-2023 08:36-0400 SaO2% (BldA) [Mass fraction] 97 % Gideongabrielle Bueno DO Work Phone: [facility] 04-26-2023 08:36-0400 Systolic blood pressure 124 mm[Hg] Gideon Moises DO Work Phone: [facility] 03-18-2023 10:08-0400 Body weight 112.04 kg Harvinder Verde APRN.PRECIPITATOR OPERATOR Work Phone: [facility] 03-18-2023 10:08-0400 Diastolic blood pressure 66 mm[Hg] Harvinder Verde TECHNICAL SALES ADVISOR.PRECIPITATOR OPERATOR Work Phone: [facility] 03-18-2023 10:08-0400 Heart rate 60 /min Harvinder Verde TECHNICAL SALES ADVISOR.PRECIPITATOR OPERATOR Work Phone: [facility] 03-18-2023 10:08-0400 Respiratory rate 16 /min Harvinder Verde TECHNICAL SALES ADVISOR.PRECIPITATOR OPERATOR Work Phone: [facility] 03-18-2023 10:08-0400 SaO2% (BldA) [Mass fraction] 95 % Harvinder Verde TECHNICAL SALES ADVISOR.PRECIPITATOR OPERATOR Work Phone: [facility] 03-18-2023 10:08-0400 Systolic blood pressure 112 mm[Hg] Harvinder Verde TECHNICAL SALES ADVISOR.PRECIPITATOR OPERATOR Work Phone: [facility] 03-08-2023 13:59-0400 Diastolic blood pressure 64 mm[Hg] Mena Machuca DO Work Phone: [facility] 03-08-2023 13:59-0400 Heart rate 62 /min Mena Machuca DO Work Phone: [facility] 03-08-2023 13:59-0400 SaO2% (BldA) [Mass fraction] 95 % Mena Machuca DO Work Phone: [facility] 03-08-2023 13:59-0400 Systolic blood pressure 118 mm[Hg] Mena Machuca DO Work Phone: [facility] 01-21-2023 08:36-0400 Body temperature 96.49 [degF] Husam Deras DO Work Phone: [facility] 01-21-2023 08:36-0400 Body weight 109.32 kg Hsuam Deras DO Work Phone: [facility] 01-21-2023 08:36-0400 Diastolic blood pressure 60 mm[Hg] Husam Deras DO Work Phone: [facility] 01-21-2023 08:36-0400 Heart rate 64 /min Husam Deras DO Work Phone: [facility] 01-21-2023 08:36-0400 Respiratory rate 24 /min Husam Deras DO Work Phone: [facility] 01-21-2023 08:36-0400 Systolic blood pressure 130 mm[Hg] Husam Deras DO Work Phone: [facility] 10-26-2022 11:03-0500 Body height 177.8 cm Jose M Kay TECHNICAL SALES ADVISOR.PRECIPITATOR OPERATOR Work Phone: [facility] 10-26-2022 11:03-0500 Body weight 104.64 kg Jose M Kay TECHNICAL SALES ADVISOR.PRECIPITATOR OPERATOR Work Phone: [facility] 10-26-2022 11:03-0500 Diastolic blood pressure 54 mm[Hg] Jose M Kay TECHNICAL SALES ADVISOR.PRECIPITATOR OPERATOR Work Phone: [facility] 10-26-2022 11:03-0500 Heart rate 55 /min Jose M Kay TECHNICAL SALES ADVISOR.PRECIPITATOR OPERATOR Work Phone: [facility] 10-26-2022 11:03-0500 SaO2% (BldA) [Mass fraction] 98 % Jose M Kay TECHNICAL SALES ADVISOR.PRECIPITATOR OPERATOR Work Phone: [facility] 10-26-2022 11:03-0500 Systolic blood pressure 128 mm[Hg] Jose M Kay TECHNICAL SALES ADVISOR.PRECIPITATOR OPERATOR Work Phone: [facility] 07-21-2022 12:18-0500 Body weight 97.98 kg Fernanda Zurawick TECHNICAL SALES ADVISOR.PRECIPITATOR OPERATOR Work Phone: [facility] 07-21-2022 12:18-0500 Diastolic blood pressure 60 mm[Hg] Fernanda Zurawick TECHNICAL SALES ADVISOR.PRECIPITATOR OPERATOR Work Phone: [facility] 07-21-2022 12:18-0500 Heart rate 62 /min Fernanda Zurawick TECHNICAL SALES ADVISOR.PRECIPITATOR OPERATOR Work Phone: [facility] 07-21-2022 12:18-0500 Respiratory rate 18 /min Fernanda Dedemelissa TECHNICAL SALES ADVISOR.PRECIPITATOR OPERATOR Work Phone: [facility] 07-21-2022 12:18-0500 Systolic blood pressure 110 mm[Hg] Fernanda Santos TECHNICAL SALES ADVISOR.PRECIPITATOR OPERATOR Work Phone: [facility] 04-14-2022 11:13-0400 Body temperature 98.01 [degF] Husam Deras DO Work Phone: [facility] 04-14-2022 11:13-0400 Body weight 103.87 kg Husam Deras DO Work Phone: [facility] 04-14-2022 11:13-0400 Diastolic blood pressure 60 mm[Hg] Husam Deras DO Work Phone: [facility] 04-14-2022 11:13-0400 Heart rate 64 /min Husam Deras DO Work Phone: [facility] 04-14-2022 11:13-0400 Respiratory rate 16 /min Husam Deras DO Work Phone: [facility] 04-14-2022 11:13-0400 Systolic blood pressure 130 mm[Hg] Husam Deras DO Work Phone: [facility] 02-18-2022 08:04-0400 Body height 177.8 cm Gideongabrielle Bueno DO Work Phone: [facility] 02-18-2022 08:04-0400 Body weight 106.14 kg Gideongabrielle Bueno DO Work Phone: [facility] 02-18-2022 08:04-0400 Diastolic blood pressure 56 mm[Hg] Gideon Moises DO Work Phone: [facility] 02-18-2022 08:04-0400 Heart rate 56 /min Gideon Moises DO Work Phone: [facility] 02-18-2022 08:04-0400 SaO2% (BldA) [Mass fraction] 97 % Gideon Bueno DO Work Phone: [facility] 02-18-2022 08:04-0400 Systolic blood pressure 116 mm[Hg] Gideon Bueno DO Work Phone: [facility] 02-11-2022 10:50-0400 Body height 177.8 cm Respiratory Wstr Work Phone: [facility] 02-11-2022 10:50-0400 Body weight 107.05 kg Respiratory Wstr Work Phone: [facility] 02-11-2022 10:50-0400 Heart rate 59 /min Respiratory Wstr Work Phone: [facility] 02-11-2022 10:50-0400 Respiratory rate 14 /min Respiratory Wstr Work Phone: [facility] 02-11-2022 10:50-0400 SaO2% (BldA) [Mass fraction] 96 % Respiratory Wstr Work Phone: [facility] 02-01-2022 08:11-0400 Body temperature 96.6 [degF] Husam Deras DO Work Phone: [facility] 02-01-2022 08:11-0400 Body weight 108.86 kg Husam Deras DO Work Phone: [facility] 02-01-2022 08:11-0400 Diastolic blood pressure 60 mm[Hg] Husma Deras DO Work Phone: [facility] 02-01-2022 08:11-0400 Heart rate 64 /min Husam Deras DO Work Phone: [facility] 02-01-2022 08:11-0400 Respiratory rate 20 /min Husam Deras DO Work Phone: [facility] 02-01-2022 08:11-0400 Systolic blood pressure 136 mm[Hg] Husam Deras DO Work Phone: [facility] 01-04-2022 15:00-0400 Diastolic blood pressure 74 mm[Hg] Mi Nurse Work Phone: [facility] 01-04-2022 15:00-0400 Heart rate 72 /min Mi Nurse Work Phone: [facility] 01-04-2022 15:00-0400 Systolic blood pressure 118 mm[Hg] Mi Nurse Work Phone: [facility] 12-21-2021 10:30-0400 Body weight 108.23 kg Fernanda Zurawick TECHNICAL SALES ADVISOR.PRECIPITATOR OPERATOR Work Phone: [facility] 12-21-2021 10:30-0400 Diastolic blood pressure 60 mm[Hg] Fernanda Zurawick TECHNICAL SALES ADVISOR.PRECIPITATOR OPERATOR Work Phone: [facility] 12-21-2021 10:30-0400 Heart rate 60 /min Fernanda Zurawick TECHNICAL SALES ADVISOR.PRECIPITATOR OPERATOR Work Phone: [facility] 12-21-2021 10:30-0400 Respiratory rate 16 /min Fernanda Zurawick TECHNICAL SALES ADVISOR.PRECIPITATOR OPERATOR Work Phone: [facility] 12-21-2021 10:30-0400 Systolic blood pressure 130 mm[Hg] Fernanda Zurawick TECHNICAL SALES ADVISOR.PRECIPITATOR OPERATOR Work Phone: [facility] Encounters Encounter Date Encounter Type Care Provider Facility Start: 09-02-2023 End: 09-03-2023 ambulatory [facility] Facility:[facility] Start: 08-27-2023 Orders Only Deanna amaya PA-C Work Phone: [place] PROVIDER ADULT Procedures Date Procedure Procedure Detail Performing Clinician Start: 07-21-2023 INFLUENZA VACCINE, P RSV FREE, AGE 65+ YR, HIGH DOSE, QUADRIVALENT (FLUZONE HIGH-DOSE) Aurelia Trevino MD Work Phone: Start: 07-21-2023 Brncdilat rspse spmt ry pre&post-brncdilat admn Aurelia Trevino MD Work Phone: Start: 04-18-2023 Arthrocentesis aspir &/inj major jt/bursa w/o Seble Zepeda PA-C Work Phone: Start: 04-11-2023 Echo tthrc r-t 2d w/wom-mode compl spec&colr d Harvinder Verde TECHNICAL SALES ADVISOR.PRECIPITATOR OPERATOR Work Phone: Start: 04-11-2023 LVEF TRANSTHORACIC ECHO Harvinder Verde TECHNICAL SALES ADVISOR.PRECIPITATOR OPERATOR Work Phone: Start: 10-26-2022 Ecg routine ecg w/le ast 12 lds i&r only [facility] Provider Start: 07-21-2022 INFLUENZA SEASONAL QUADRIVALENT HIGH DOSE AGE 65+ [facility] TECHNICAL [facility] ADVISOR.PRECIPITATOR OPERATOR Work Phone: Start: 07-21-2022 Zentyal-sezmi COVI D-19 BIVALENT BOOSTER VACCINE, AGE 12+ YR Fernanda [facility] TECHNICAL SALES ADVISOR.PRECIPITATOR OPERATOR Work Phone: Start: 06-28-2022 Arthrocentesis aspir &/inj major jt/bursa w/o us Seble Zepeda PA-C Work Phone: Start: 06-14-2022 Arthrocentesis aspir &/inj major jt/bursa w/o us Seble Vetex PA-C Work Phone: Start: 02-11-2022 Brncdilat rspse spmt ry pre&post-brncdilat admn Husam Deras DO Work Phone: Start: 02-01-2022 Adult depression scr eening assessment Husam Deras DO Work Phone: Start: 12-11-2021 Myocardial spect mul tiple studies Gideon Bueno DO Work Phone: Start: 01-20-2021 Adult depression scr eening assessment [facility] Work Phone: Start: 07-01-2014 History of coronary artery bypass grafting S/P CABG x 3 [facility] Work Phone: History of coronary artery bypass grafting S/P CABG x 3 Gideon Bueno DO Work Phone: History of coronary artery bypass grafting Hx of CABG Jose M Kay TECHNICAL SALES ADVISOR.PRECIPITATOR OPERATOR Work Phone: History of coronary artery bypass grafting S/P CABG x 3 Gideon Bueno DO Work Phone: Plan of Treatment Date Care Activity Detail Author Start: 08-30-2030 Urine microalbumin profile DTaP,Tdap,Td Vaccine (2 - Td or Tdap) [facility] Start: 08-27-2026 Diabetes Screening Diabetes Screening [facility] Start: 04-26-2026 DIABETES SCREEN DIABETES SCREEN [facility] Start: 04-26-2026 Diabetes Screening Diabetes Screening [facility] Start: 03-31-2026 DIABETES SCREEN DIABETES SCREEN [facility] Start: 03-18-2026 DIABETES SCREEN DIABETES SCREEN [facility] Start: 01-21-2026 DIABETES SCREEN DIABETES SCREEN [facility] Start: 07-21-2025 DIABETES SCREEN DIABETES SCREEN [facility] Start: 12-21-2024 DIABETES SCREEN DIABETES SCREEN [facility] Start: 07-21-2024 DIABETES SCREEN DIABETES SCREEN [facility] Start: 10-26-2023 BP CONTROLLED (<130/80) BP CONTROLLED (<130/80) [facility] Start: 10-25-2023 ANNUAL PCP TEAM CHRONIC DISEASE VISIT ANNUAL PCP TEAM CHRONIC DISEASE VISIT [facility] Start: 10-25-2023 BP CONTROLLED (<130/80) BP CONTROLLED (<130/80) [facility] Start: 07-21-2023 ANNUAL PCP TEAM CHRONIC DISEASE VISIT ANNUAL PCP TEAM CHRONIC DISEASE VISIT [facility] Start: 07-21-2023 BP CONTROLLED (<130/80) BP CONTROLLED (<130/80) [facility] Start: 07-21-2023 Hepatitis B surface antibody level LDL CHOLESTEROL [facility] Start: 05-13-2023 Covid-19 Vaccine ( season) Covid-19 Vaccine ( season) [facility] Start: 05-13-2023 Influenza vaccination [facility] Start: 04-14-2023 ANNUAL PCP TEAM CHRONIC DISEASE VISIT ANNUAL PCP TEAM CHRONIC DISEASE VISIT [facility] Start: 03-18-2023 End: 05-18-2023 Comprehensive metabolic 2000 panel - Serum or Plasma [facility] Work Phone: Immunizations Immunization Date Immunization Notes Care Provider Fa cili 07-21-2023 influenza (HD-IIV4) vaccine, age 65+ yr, high dose, quadrivalent, PF (FLUZONE HIGH-DOSE) [facility] Work Phone: [facility] 07-21-2022 COVID-19 booster vaccine, age 12+ yr, bivalent (PFIZER-BIONTECH) Fernanda Danielle TECHNICAL SALES ADVISOR.PRECIPITATOR OPERATOR Work Phone: [facility] 07-21-2022 influenza, high-dose , quadrivalent vaccine (FLUZONE HIGH DOSE QUADRIVALENT) Fernanda Danielle TECHNICAL SALES ADVISOR.PRECIPITATOR OPERATOR Work Phone: [facility] 07-21-2022 influenza virus vacc ine, unspecified formulation Denisse Eller RN Work Phone: [facility] 10-19-2021 pneumococcal polysaccharide vaccine, 23 valent [facility] Work Phone: [facility] Work Phone: 07-21-2021 influenza, high-dose , quadrivalent vaccine (FLUZONE HIGH DOSE QUADRIVALENT) [facility] Work Phone: [facility] Work Phone: 11-14-2020 COVID-19 vaccine, ag e 12+ yr (PFIZER-BIONTECH - PURPLE TOP) [facility] Work Phone: [facility] Work Phone: 10-24-2020 COVID-19 vaccine, ag e 12+ yr (PFIZER-BIONTECH - PURPLE TOP) [facility] Work Phone: [facility] 06-27-2019 influenza, high dose seasonal, preservative-free [facility] Work Phone: [facility] Work Phone: 07-05-2017 influenza, high dose seasonal, preservative-free [facility] Work Phone: [facility] Work Phone: 09-20-2016 influenza, high dose seasonal, preservative-free [facility] Work Phone: [facility] Work Phone: 07-15-2015 influenza, high dose seasonal, preservative-free [facility] Work Phone: [facility] Work Phone: 07-15-2015 pneumococcal conjuga te vaccine, 13 valent [facility] Work Phone: [facility] Work Phone: 01-14-2014 zoster vaccine, live [facility] Work Phone: [facility] 01-31-2013 tetanus and diphther ia toxoids, adsorbed, preservative free, for adult use (2 Lf of tetanus toxoid and 2 Lf of diphtheria toxoid) [facility] Work Phone: [facility] Work Phone: 06-12-2012 influenza virus vacc ine, unspecified formulation [facility] Work Phone: [facility] Work Phone: 08-26-2008 influenza virus vacc ine, unspecified formulation [facility] Work Phone: [facility] 11-15-2007 pneumococcal polysaccharide vaccine, 23 valent [facility] Work Phone: [facility] Work Phone: 08-16-2007 influenza virus vacc ine, unspecified formulation [facility] Work Phone: [facility] Work Phone: Payers Date Payer Category Payer Medicaid MEDICAID [facility] MEDICAID [id number] 2022-Present [phone] [address] [place] [address] Medicaid [id number] 2022 Medicaid [id number] 2020 Medicaid [id number] 2019 Medicare [id number] 2019 Unknown ANTHEM BLUE CROS S AND BLUE SHIELD ANTHEM MEDIBLUE O [id number] 2019-Present [phone] [address] [place] [address] [facility] [id number] 2019 Unknown [id number] Medicare [id number] Social History Date Type Detail Facility Start: 03-07-2012 End: 07-21-2023 Tobacco smoking status NHIS Ex-smoker [facility] End: 09-12-1989 History of tobacco use Current smoker [facility] Start: 11-30-2021 End: 08-15-2023 Alcohol intake Current non-drinker of alcohol (finding) [facility] Start: 1940 Sex Assigned At Not on file [facility] Start: 12-01-2021 End: 07-21-2022 Exposure to SARS-CoV-2 (event) Not sure [facility] End: 09-12-1989 History of tobacco use Cigarette Smoker [facility] Start: 03-07-2012 End: 07-21-2023 Tobacco use and exposure Smokeless tobacco non-user [facility] Start: 02-09-2023 History SDOH Food Worry 1 [facility] Start: 02-09-2023 History SDOH Transpo rt Med 2 [facility] Start: 01-21-2023 End: 03-08-2023 History of Social function [facility] Work Phone: Start: 01-21-2023 End: 03-08-2023 Tobacco use panel [facility] Work Phone: Adult Depression Screening Assessment 0 [facility] Work Phone: (I/We) worried wheth er (my/our) food would run out before (I/we) got money to buy more. Never true [facility] Work Phone: Goals Date Patient Goal Desired Activity /State Personal health goal Clinical Notes 03-30-2017 to 09-02-2023 Denisse Eller RN - 08/25/2023 11:04 AM Denisse Flannery RN - 08/10/2023 10:22 AM Denisse Flannery RN - 08/09/2023 1:35 PM RossiMnea JENELLE - 07/21/2023 12:43 PM ESTPatient Instructions Note Date & Type Note Facility 09-02-2023 Note HNO ID: [id number] Author: Stu James APRN.CNP Service: ? Author Type: Nurse Practitioner Type: Progress Notes Filed: 09/02/2023 2:45 PM Note Text: Transitional Care Management Progress Note The patients TCM visit was performed within the 14 days of discharge. Patient's Date of discharge: 08/28/2023 Date of initial coordinator contact after discharge: 08/29/2023 Discharge diagnosis: SDH, confusion, acute delirium Medication review completed Yes Stu James APRN.PRECIPITATOR OPERATOR Provider Documentation: In follow-up of hospitalization, George Lewis is a 82 year old male with the chief complaint of confusion, weakness. I have reviewed the patient?s last hospital course including diagnostic testing performed during this hospitalization, their discharge medications, and my assessment and plan with the patient and any family members present at today?s visit. Per telephone encounter yesterday 09/01/2023: Call transferred to triage nurse from breaker engineer due to patient called to request sooner hospital f/u appointment and he is scheduled to be seen tomorrow 09/02 with Stu James TRAVEL REGISTERED NURSE NICU. Patient reports no new or worsening symptoms. He says he lost track of the date and thought his appointment was next week. He says he has difficulty walking which was noted in his OV 04/27/23 by PCP. He says his walking is no worse than it was before his hospitalization but he does fear he might trip over his cat and fall again. He denies any mental confusion. No slurred speech. States he no longer has a headache. Advised patient to keep scheduled appointment. Guillermina Ibanez RN HPI: States on 08/27 he got lightheaded when he got up at 2am to let his cats out and had a fall. Neighbor heard him fall and called colin, was taken to [facility] and from there to [facility]. Remembers being in the hospital-but wasn't confused-felt like he was talking slow and was a bit lightheaded. Overall did not find much during his stay and given his acceptable mental state, was discharged from [facility]. Currently today: lightheaded a bit. Decreased appetite. Knows he has taken some pills but not sure what day he took them last. Plans to refill his pills today. Remembers eating twice-ate eggs this morning, but doesn't remember eating since his hospital discharge on 08/28. Has 2 lady neighbors that check on him all the time. A jameson that calls him a couple times a day. No family nearby. PAST MEDICAL HISTORY: Reviewed and updated ALLERGIES: Reviewed and updated MEDICATIONS: Reviewed and updated SOCIAL HISTORY: Reviewed and updated FAMILY HISTORY: Reviewed and updated REVIEW OF SYSTEMS: All other systems reviewed and negative, other than HPI. PHYSICAL EXAMINATION BP 130/68 Pulse 59 Resp 16 Wt 241 lb 3.2 oz (109.4kg) SpO2 96% General appearance: moderately disheveled appearance, AANDO x4, in no acute distress, and well-hydrated, well nourished, motor and sensory appear to be normal Lungs: clear to auscultation no wheezing or rhonchi Heart: RRR without murmur, gallop, or rubs. No ectopy Abdomen: Deferred Extremities: Extremities normal. No deformities, edema, or skin discoloration. Good capillary refill. 1. I have reviewed the patient record including associated test results during the last hospitalization Yes 2. I have reviewed Lab test Yes 3. I have reviewed Radiology test Yes 4. I reviewed assessment/plan with the patient/family member Yes ASSESSMENT/PLAN: 1. Lightheadedness - ICD9: 780.4, ICD10: R42 (primary diagnosis) Reinforced fall safety precautions at home, changing positions slowly, taking medications regularly as ordered, eating at least 3 meals per day, drinking at least 60-80 ounces daily. Carotid ultrasound ordered. Have labs completed. - CBC + DIFF - COMP METABOLIC PANEL - TSH BLD - T3 BLD - T4 FREE/FREE THYROX - US CAROTID ARTERIES [facility] - US CAROTID BILATERAL 2. 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 Reinforced fall safety precautions at home, changing positions slowly, taking medications regularly as ordered, eating at least 3 meals per day, drinking at least 60-80 ounces daily. Carotid ultrasound ordered. Have labs completed. - CBC + DIFF - COMP METABOLIC PANEL - TSH BLD - T3 BLD - T4 FREE/FREE THYROX - US CAROTID ARTERIES [facility] - US CAROTID BILATERAL 3. Hypothyroidism, unspecified type - ICD9: 244.9, ICD10: E03.9 - Instructed patient on importance of taking on an empty stomach either first thing in the morning or at bedtime. - TSH BLD - T3 BLD - T4 FREE/FREE THYROX 4. Essential hypertension - ICD9: 401.9, ICD10: I10 - Controlled - Recommend home blood pressure monitoring, to bring results to next visit - Encouraged sodium restriction, DASH or Mediterranean diet - Recommend regular aerobic exercise - CBC + DIFF - COMP METABOLIC PANEL - TSH (more content not included)... [facility] 08-30-2023 Note HNO ID: [id number] Author: Elif Andrade, RN Service: ? Author Type: Registered Nurse Type: Progress Notes Filed: 08/30/2023 10:54 AM Note Text: TRANSITIONAL CARE MANAGEMENT (TCM) COMMUNITY MONITORING PROGRAM Provider Action/FYI: Second Attempt: Second attempt to outreach patient for initial hospital discharge. No answer. Left message to return call at [phone] Message left to schedule follow up with PCP SUMMARY: Discharge Network Status: In-Network Discharge Pt discharged from [facility] on 08/28/2023. Admitted for: intracranial hemorrhage, SDH Contact made with patient: No - 2nd unsuccessful attempt - end outreach and close encounter Outreach ended Karlene ROBERTO, wet mixer Type Proof Reproducer [phone] [facility] 08-29-2023 Note HNO ID: [id number] Author: Elif Andrade, RN Service: ? Author Type: Registered Nurse Type: Progress Notes Filed: 08/30/2023 10:54 AM Note Text: TCM Home Visit Referral Source of Stratification: TCM [facility] Admission Status: Discharged Readmission Risk Score: 22 HILARIO Score: 13 Patient meets program referral criteria: No Patient does not qualify for High Risk TCM Home Visit program due to: Discharged home, does not meet program criteria TRANSITIONAL CARE MANAGEMENT (TCM) COMMUNITY MONITORING PROGRAM Provider Action/FYI: Attempted outreach to patient for hospital discharge initial outreach. No answer, left a voicemail to return my call at [phone]. Will attempt to outreach to patient again later today or tomorrrow if no return call from patient. SUMMARY: Discharge Network Status: In-Network Discharge Pt discharged from [facility] on 08/28/2023. Admitted for: intracranial hemorrhage, SDH Contact made with patient: No - next outreach attempt will be on next business day Outreach ended Elif Castaneda RN August 29, 2023 12:19 PM [facility] 08-29-2023 Note Patient Outreach ([facility] GEORGE LEWIS ([id number]) 1940 Date Time Provider Department 08/29/23 ELIF ANDRADE [facility] During your visit today, we recorded the following information about you: Elif Andrade RN 08/30/2023 10:54 AM Signed TCM Home Visit Referral Source of Stratification: [facility] Admission Status: Discharged Readmission Risk Score: 22 HILARIO Score: 13 Patient meets program referral criteria: No Patient does not qualify for High Risk TCM Home Visit program due to: Discharged home, does not meet program criteria TRANSITIONAL CARE MANAGEMENT (TCM) COMMUNITY MONITORING PROGRAM Provider Action/FYI: Attempted outreach to patient for hospital discharge initial outreach. No answer, left a voicemail to return my call at [phone]. Will attempt to outreach to patient again later today or tomorrrow if no return call from patient. SUMMARY: Discharge Network Status: In-Network Discharge Pt discharged from [facility] on 08/28/2023. Admitted for: intracranial hemorrhage, SDH Contact made with patient: No - next outreach attempt will be on next business day Outreach ended Elif Castaneda RN August 29, 2023 12:19 PM Elif Andrade RN 08/30/2023 10:54 AM Signed TRANSITIONAL CARE MANAGEMENT (TCM) COMMUNITY MONITORING PROGRAM Provider Action/FYI: Second Attempt: Second attempt to outreach patient for initial hospital discharge. No answer. Left message to return call at [phone] Message left to schedule follow up with PCP SUMMARY: Discharge Network Status: In-Network Discharge Pt discharged from [facility] on 08/28/2023. Admitted for: intracranial hemorrhage, SDH Contact made with patient: No - 2nd unsuccessful attempt - end outreach and close encounter Outreach ended Karlene ROBERTO, wet mixer Type Proof Reproducer [phone] Allergies As of Date: 08/29/2023 Noted Allergy Reaction LIPITOR (ATORVASTATIN) 08/16/2007 5 - Intolerance Comments: Severe leg cramps, stopped Date Reviewed: 08/27/2023 Reviewed by: Yashira Tidwell, KEYA - Fully Assessed Reason for Visit: Transition Of Care [4074] Cmt: TCM Initial Hospital Discharge 08/28/2023 Prescriptions as of 08/30/2023 - albuterol HFA (PROVENTIL HFA, VENTOLIN HFA) 90 mcg/actuation inhaler Inhale 2 Puffs as instructed every 4 hours as needed for wheezing/shortness of breath. - fluticasone (FLONASE) 50 mcg/actuation nasal spray Use 2 Sprays in each nostril once daily. Rinse mouth after use. - gabapentin (NEURONTIN) 400 mg capsule Take 1 capsule in the AM, 1 capsule in the afternoon and 2 capsules in the evening before bed - meclizine (ANTIVERT) 25 mg tab Take 1 tablet by mouth every 6 hours as needed (dizziness). - amLODIPine (NORVASC) 10 mg tablet Take 1 tablet by mouth once daily. - furosemide (LASIX) 20 mg tablet Take 1 tablet by mouth once daily. - tamsulosin (FLOMAX) 0.4 mg Take 1 capsule by mouth twice daily. - nitroglycerin sublingual (NITROQUICK) 0.4 mg SL tablet Dissolve 1 tablet under the tongue as needed. for chest pain,every 5 min x3 - rosuvastatin (CRESTOR) 10 mg tablet Take 1 tablet by mouth once daily. - levothyroxine (LEVOXYL) 100 mcg tablet Take 1 tablet PO 5 days a week in AM and take 2 tablets PO 2 days a week. Take on empty stomach. For Thyroid - fluticasone-salmeterol (ADVAIR DISKUS) 100-50 mcg/dose inhaler Inhale 1 Puff as instructed twice daily. Rinse mouth out after use with water. - lisinopril (ZESTRIL, PRINIVIL) 20 mg tablet Take 1 tablet by mouth twice daily. - atenolol (TENORMIN) 25 mg tablet Take 1 tablet by mouth once daily. - cetirizine (ZYRTEC) 10 mg tablet Take 1 tablet by mouth once daily. - meloxicam (MOBIC) 7.5 mg tablet Take 1 tablet by mouth once daily. for pain. Take with food. - psyllium Husk 0.52 gram capsule Take 0.52 g by mouth once daily. - docosahexaenoic acid/epa (FISH OIL ORAL) Take by mouth once daily. - ergocalciferol, vitamin D2, (VITAMIN D2 ORAL) Take by mouth once daily. - DAILY MULTI-VITAMIN ORAL Take by mouth once daily. - OTC PRODUCT Takes 1 spoonful of beet powder couple days a week - aspirin, enteric coated 81 mg EC tablet Take 81 mg by mouth once daily. Facility-Administered Medications as of 08/30/2023 - perflutren lipid microspheres 1.3 mL in NaCl (PF) 0.9% 10 mL injection (DEFINITY) - sodium chloride 0.9 % (flush) 10 mL (BD POSIFLUSH) Meds Comments as of 10/15/2015: Clairitin daily Problem List As Of Date 08/29/2023 Noted Resolved Essential hypertension [I10] Coronary atherosclerosis of unspecified type of* 04/19/2019 Obesity, unspecified [E66.9] 03/30/2017 HEARING LOSS NOS [H91.90] FAMILY HX GI MALIGNANCY [Z80.0] 08/16/2007 LOC PRIM OSTEOART-L/LEG [M17.10] 08/19/2007 Chronic obstructive pulmonary disease (HCC) [J4*08/19/2007 BENIGN NEOPLASM (more content not included)... [facility] 08-29-2023 Note Patient Outreach ([facility]) ONURGRAHAMGEORGE ([id number]) 1940 M Date Time Provider Department 08/29/23 DENISSE ELLER During your visit today, we recorded the following information about you: Allergies As of Date: 08/29/2023 Noted Allergy Reaction LIPITOR (ATORVASTATIN) 08/16/2007 5 - Intolerance Comments: Severe leg cramps, stopped Date Reviewed: 08/27/2023 Reviewed by: Yashira Tidwell, KEYA - Fully Assessed Reason for Visit: Prescriptions as of 08/29/2023 - albuterol HFA (PROVENTIL HFA, VENTOLIN HFA) 90 mcg/actuation inhaler Inhale 2 Puffs as instructed every 4 hours as needed for wheezing/shortness of breath. - fluticasone (FLONASE) 50 mcg/actuation nasal spray Use 2 Sprays in each nostril once daily. Rinse mouth after use. - gabapentin (NEURONTIN) 400 mg capsule Take 1 capsule in the AM, 1 capsule in the afternoon and 2 capsules in the evening before bed - meclizine (ANTIVERT) 25 mg tab Take 1 tablet by mouth every 6 hours as needed (dizziness). - amLODIPine (NORVASC) 10 mg tablet Take 1 tablet by mouth once daily. - furosemide (LASIX) 20 mg tablet Take 1 tablet by mouth once daily. - tamsulosin (FLOMAX) 0.4 mg Take 1 capsule by mouth twice daily. - nitroglycerin sublingual (NITROQUICK) 0.4 mg SL tablet Dissolve 1 tablet under the tongue as needed. for chest pain,every 5 min x3 - rosuvastatin (CRESTOR) 10 mg tablet Take 1 tablet by mouth once daily. - levothyroxine (LEVOXYL) 100 mcg tablet Take 1 tablet PO 5 days a week in AM and take 2 tablets PO 2 days a week. Take on empty stomach. For Thyroid - fluticasone-salmeterol (ADVAIR DISKUS) 100-50 mcg/dose inhaler Inhale 1 Puff as instructed twice daily. Rinse mouth out after use with water. - lisinopril (ZESTRIL, PRINIVIL) 20 mg tablet Take 1 tablet by mouth twice daily. - atenolol (TENORMIN) 25 mg tablet Take 1 tablet by mouth once daily. - cetirizine (ZYRTEC) 10 mg tablet Take 1 tablet by mouth once daily. - meloxicam (MOBIC) 7.5 mg tablet Take 1 tablet by mouth once daily. for pain. Take with food. - psyllium Husk 0.52 gram capsule Take 0.52 g by mouth once daily. - docosahexaenoic acid/epa (FISH OIL ORAL) Take by mouth once daily. - ergocalciferol, vitamin D2, (VITAMIN D2 ORAL) Take by mouth once daily. - DAILY MULTI-VITAMIN ORAL Take by mouth once daily. - OTC PRODUCT Takes 1 spoonful of beet powder couple days a week - aspirin, enteric coated 81 mg EC tablet Take 81 mg by mouth once daily. Facility-Administered Medications as of 08/29/2023 - perflutren lipid microspheres 1.3 mL in NaCl (PF) 0.9% 10 mL injection (DEFINITY) - sodium chloride 0.9 % (flush) 10 mL (BD POSIFLUSH) Meds Comments as of 10/15/2015: Clairitin daily Problem List As Of Date 08/29/2023 Noted Resolved Essential hypertension [I10] Coronary atherosclerosis of unspecified type of* 04/19/2019 Obesity, unspecified [E66.9] 03/30/2017 HEARING LOSS NOS [H91.90] FAMILY HX GI MALIGNANCY [Z80.0] 08/16/2007 LOC PRIM OSTEOART-L/LEG [M17.10] 08/19/2007 Chronic obstructive pulmonary disease (HCC) [J4*08/19/2007 BENIGN NEOPLASM LG BOWEL [D12.6] 02/01/2008 Hyperlipidemia LDL goal <70 [E78.5] 02/16/2008 Gynecomastia [N62] 07/20/2012 Shoulder pain, right [M25.511] 08/09/2012 Abnormal stress test [R94.39] 07/01/2014 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] 07/01/2014 PVC's (premature ventricular contractions) [I49*07/01/2014 Pain in joint, shoulder region [M25.519] 02/10/2015 Complete tear of right rotator cuff [M75.121] 09/02/2015 Obesity (BMI 30.0-34.9) [E66.9] 03/30/2017 10/20/2018 Coronary artery disease involving igiugig lau*10/18/2017 Obesity, Class I, BMI 30-34.9 [E66.9] 10/18/2017 Dizziness [R42] 12/19/2017 Elevated fasting glucose [R73.01] 12/19/2017 Allergic rhinitis due to allergen [J30.9] 12/19/2017 PAD (peripheral artery disease) ([facility]) [I73.9] 03/16/2019 Pure hypercholesterolemia [E78.00] 04/20/2019 10/25/2022 Chronic pain of both knees [M25.561, M25.562, G*04/20/2019 Pain of right lower extremity [M79.604] 10/23/2019 Benign nodular prostatic hyperplasia without lo*01/20/2021 Actinic keratosis [L57.0] 01/20/2021 Lumbar stenosis with neurogenic claudication [M*04/09/2021 Weight gain [R63.5] 07/21/2021 Vitamin D deficiency [E55.9] 07/21/2021 IFG (impaired fasting glucose) [R73.01] 07/21/2021 Hypothyroidism [E03.9] 10/19/2021 SOB (shortness of breath) [R06.02] 02/01/2022 Moderate persistent asthma, uncomplicated [J45.*04/14/2022 Restrictive airway disease [J98.4] 04/14/2022 07/21/2023 Hereditary and idiopathic peripheral neuropathy*10/21/2022 Mixed hyperlipidemia [E78.2] 01/21/2023 Bilateral carotid artery stenosis [I65.23] 04/26/2023 Bilateral calf pain [M79.661, M79.662] 04/27/2023 SDH (subdural hematoma) ([facility]) [S06.5XAA] 08/27/2023 Confusion [R41.0] 08/27/2023 Obesity, Class II, BMI 35-39.9 [E66.9] 08/28/2023 (more content not included)... [facility] 08-25-2023 Note Patient Outreach (AM [facility]) GEORGE LEWIS ([id number]) 1940 M Date Time Provider Department [facility] [place] [facility] your visit today, we recorded the following information about you: Denisse Eller RN 08/25/2023 11:07 AM Signed [facility] Telephonic Outreach Provider Action/FYI Contacted for: Routine Telephonic Outreach Contact made with patient: No, left message. Denisse Eller RN August 25, 2023 11:07 AM Allergies As of Date: 08/25/2023 Noted Allergy Reaction LIPITOR (ATORVASTATIN) 08/16/2007 5 - Intolerance Comments: Severe leg cramps, stopped Date Reviewed: 08/15/2023 Reviewed by: Crow Damian MD - Fully Assessed Reason for Visit: cdm [Other] Cmt: Check in call Prescriptions as of 08/25/2023 - albuterol HFA (PROVENTIL HFA, VENTOLIN HFA) 90 mcg/actuation inhaler Inhale 2 Puffs as instructed every 4 hours as needed for wheezing/shortness of breath. - fluticasone (FLONASE) 50 mcg/actuation nasal spray Use 2 Sprays in each nostril once daily. Rinse mouth after use. - gabapentin (NEURONTIN) 400 mg capsule Take 1 capsule in the AM, 1 capsule in the afternoon and 2 capsules in the evening before bed - meclizine (ANTIVERT) 25 mg tab Take 1 tablet by mouth every 6 hours as needed (dizziness). - amLODIPine (NORVASC) 10 mg tablet Take 1 tablet by mouth once daily. - furosemide (LASIX) 20 mg tablet Take 1 tablet by mouth once daily. - naproxen sodium (ALEVE) 220 mg cap Take by mouth once daily. - tamsulosin (FLOMAX) 0.4 mg Take 1 capsule by mouth twice daily. - nitroglycerin sublingual (NITROQUICK) 0.4 mg SL tablet Dissolve 1 tablet under the tongue as needed. for chest pain,every 5 min x3 - rosuvastatin (CRESTOR) 10 mg tablet Take 1 tablet by mouth once daily. - levothyroxine (LEVOXYL) 100 mcg tablet Take 1 tablet PO 5 days a week in AM and take 2 tablets PO 2 days a week. Take on empty stomach. For Thyroid - fluticasone-salmeterol (ADVAIR DISKUS) 100-50 mcg/dose inhaler Inhale 1 Puff as instructed twice daily. Rinse mouth out after use with water. - hydroCHLOROthiazide (HYDRODIURIL, ESIDRIX) 12.5 mg tablet Take 1 tablet by mouth once daily. - lisinopril (ZESTRIL, PRINIVIL) 20 mg tablet Take 1 tablet by mouth twice daily. - atenolol (TENORMIN) 25 mg tablet Take 1 tablet by mouth once daily. - cetirizine (ZYRTEC) 10 mg tablet Take 1 tablet by mouth once daily. - meloxicam (MOBIC) 7.5 mg tablet Take 1 tablet by mouth once daily. for pain. Take with food. - psyllium Husk 0.52 gram capsule Take 0.52 g by mouth once daily. - docosahexaenoic acid/epa (FISH OIL ORAL) Take by mouth once daily. - ergocalciferol, vitamin D2, (VITAMIN D2 ORAL) Take by mouth once daily. - DAILY MULTI-VITAMIN ORAL Take by mouth once daily. - OTC PRODUCT Takes 1 spoonful of beet powder couple days a week - aspirin, enteric coated 81 mg EC tablet Take 81 mg by mouth once daily. Facility-Administered Medications as of 08/25/2023 - perflutren lipid microspheres 1.3 mL in NaCl (PF) 0.9% 10 mL injection (DEFINITY) - sodium chloride 0.9 % (flush) 10 mL (BD POSIFLUSH) Meds Comments as of 10/15/2015: Clairitin daily Problem List As Of Date 08/25/2023 Noted Resolved Essential hypertension [I10] Coronary atherosclerosis of unspecified type of* 04/19/2019 Obesity, unspecified [E66.9] 03/30/2017 HEARING LOSS NOS [H91.90] FAMILY HX GI MALIGNANCY [Z80.0] 08/16/2007 LOC PRIM OSTEOART-L/LEG [M17.10] 08/19/2007 Chronic obstructive pulmonary disease (HCC) [J4*08/19/2007 BENIGN NEOPLASM LG BOWEL [D12.6] 02/01/2008 Hyperlipidemia LDL goal <70 [E78.5] 02/16/2008 Gynecomastia [N62] 07/20/2012 Shoulder pain, right [M25.511] 08/09/2012 Abnormal stress test [R94.39] 07/01/2014 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] 07/01/2014 PVC's (premature ventricular contractions) [I49*07/01/2014 Pain in joint, shoulder region [M25.519] 02/10/2015 Complete tear of right rotator cuff [M75.121] 09/02/2015 Obesity (BMI 30.0-34.9) [E66.9] 03/30/2017 10/20/2018 Coronary artery disease involving igiugig lau*10/18/2017 Obesity, Class I, BMI 30-34.9 [E66.9] 10/18/2017 Dizziness [R42] 12/19/2017 Elevated fasting glucose [R73.01] 12/19/2017 Allergic rhinitis due to allergen [J30.9] 12/19/2017 PAD (peripheral artery disease) (HCC) [I73.9] 03/16/2019 Pure hypercholesterolemia [E78.00] 04/20/2019 10/25/2022 Chronic pain of both knees [M25.561, M25.562, G*04/20/2019 Pain of right lower extremity [M79.604] 10/23/2019 Benign nodular prostatic hyperplasia without lo*01/20/2021 Actinic keratosis [L57.0] 01/20/2021 Lumbar stenosis with neurogenic claudication [M*04/09/2021 Weight gain [R63.5] 07/21/2021 Vitamin D deficiency [E55.9] 07/21/2021 IFG (impaired fasting glucose) [R73.01] 07/21/2021 Hypothyroidism [E03.9] 10/19/2021 SOB (shortness of breath) [R06.02] 02/01/2022 Moderate persistent asthma, u (more content not included)... [facility] 08-25-2023 Note HNO ID: [id number] Author: Denisse Eller RN Service: ? Author Type: Registered Nurse Type: Progress Notes Filed: 08/25/2023 11:07 AM Note Text: [facility] Telephonic Outreach Provider Action/FYI Contacted for: Routine Telephonic Outreach Contact made with patient: No, left message. Denisse Eller RN August 25, 2023 11:07 AM [facility] 08-25-2023 History of Present illness Narrative [facility] Telephonic Outreach Provider Action/FYI Contacted for: Routine Telephonic Outreach Contact made with patient: No, left message. Denisse Eller RN August 25, 2023 11:07 AM documented in this encounter [facility] 08-10-2023 Note HNO ID: [id number] Author: Denisse Eller RN Service: ? Author Type: Registered Nurse Type: Progress Notes Filed: 08/10/2023 10:23 AM Note Text: [facility] Telephonic Outreach Provider Action/FYI Contacted for: Routine Telephonic Outreach Contact made with patient: No, left message. Denisse Eller RN August 10, 2023 10:23 AM [facility] 08-10-2023 History of Present illness Narrative [facility] Telephonic Outreach Provider Action/FYI Contacted for: Routine Telephonic Outreach Contact made with patient: No, left message. Denisse Eller RN August 10, 2023 10:23 AM [facility] Telephonic Outreach Provider Action/FYI Contacted for: Routine Telephonic Outreach Contact made with patient: No, left message. Denisse Eller RN August 09, 2023 1:37 PM documented in this encounter [facility] 08-09-2023 Note HNO ID: [id number] Author: Denisse Eller RN Service: ? Author Type: Registered Nurse Type: Progress Notes Filed: 08/10/2023 10:23 AM Note Text: [facility] Telephonic Outreach Provider Action/FYI Contacted for: Routine Telephonic Outreach Contact made with patient: No, left message. Denisse Eller RN August 09, 2023 1:37 PM [facility] 08-09-2023 Note Patient Outreach (AM [facility]) GEORGE LEWIS ([id number]) 1940 M Date Time Provider Department 08/09/23 DENISSE ELLER During your visit today, we recorded the following information about you: Denisse Eller RN 08/10/2023 10:23 AM Signed [facility] Telephonic Outreach Provider Action/FYI Contacted for: Routine Telephonic Outreach Contact made with patient: No, left message. Denisse Eller RN August 09, 2023 1:37 PM Denisse Eller RN 08/10/2023 10:23 AM Signed [facility] Telephonic Outreach Provider Action/FYI Contacted for: Routine Telephonic Outreach Contact made with patient: No, left message. Denisse Eller RN August 10, 2023 10:23 AM Allergies As of Date: 08/09/2023 Noted Allergy Reaction LIPITOR (ATORVASTATIN) 08/16/2007 5 - Intolerance Comments: Severe leg cramps, stopped Date Reviewed: 07/21/2023 Reviewed by: Aurelia Trevino MD - Fully Assessed Reason for Visit: cdm [Other] Cmt: Check in call Prescriptions as of 08/10/2023 - albuterol HFA (PROVENTIL HFA, VENTOLIN HFA) 90 mcg/actuation inhaler Inhale 2 Puffs as instructed every 4 hours as needed for wheezing/shortness of breath. - fluticasone (FLONASE) 50 mcg/actuation nasal spray Use 2 Sprays in each nostril once daily. Rinse mouth after use. - gabapentin (NEURONTIN) 400 mg capsule Take 1 capsule in the AM, 1 capsule in the afternoon and 2 capsules in the evening before bed - meclizine (ANTIVERT) 25 mg tab Take 1 tablet by mouth every 6 hours as needed (dizziness). - amLODIPine (NORVASC) 10 mg tablet Take 1 tablet by mouth once daily. - furosemide (LASIX) 20 mg tablet Take 1 tablet by mouth once daily. - naproxen sodium (ALEVE) 220 mg cap Take by mouth once daily. - tamsulosin (FLOMAX) 0.4 mg Take 1 capsule by mouth twice daily. - nitroglycerin sublingual (NITROQUICK) 0.4 mg SL tablet Dissolve 1 tablet under the tongue as needed. for chest pain,every 5 min x3 - rosuvastatin (CRESTOR) 10 mg tablet Take 1 tablet by mouth once daily. - levothyroxine (LEVOXYL) 100 mcg tablet Take 1 tablet PO 5 days a week in AM and take 2 tablets PO 2 days a week. Take on empty stomach. For Thyroid - fluticasone-salmeterol (ADVAIR DISKUS) 100-50 mcg/dose inhaler Inhale 1 Puff as instructed twice daily. Rinse mouth out after use with water. - hydroCHLOROthiazide (HYDRODIURIL, ESIDRIX) 12.5 mg tablet Take 1 tablet by mouth once daily. - lisinopril (ZESTRIL, PRINIVIL) 20 mg tablet Take 1 tablet by mouth twice daily. - atenolol (TENORMIN) 25 mg tablet Take 1 tablet by mouth once daily. - cetirizine (ZYRTEC) 10 mg tablet Take 1 tablet by mouth once daily. - meloxicam (MOBIC) 7.5 mg tablet Take 1 tablet by mouth once daily. for pain. Take with food. - psyllium Husk 0.52 gram capsule Take 0.52 g by mouth once daily. - docosahexaenoic acid/epa (FISH OIL ORAL) Take by mouth once daily. - ergocalciferol, vitamin D2, (VITAMIN D2 ORAL) Take by mouth once daily. - DAILY MULTI-VITAMIN ORAL Take by mouth once daily. - OTC PRODUCT Takes 1 spoonful of beet powder couple days a week - aspirin, enteric coated 81 mg EC tablet Take 81 mg by mouth once daily. Facility-Administered Medications as of 08/10/2023 - perflutren lipid microspheres 1.3 mL in NaCl (PF) 0.9% 10 mL injection (DEFINITY) - sodium chloride 0.9 % (flush) 10 mL (BD POSIFLUSH) Meds Comments as of 10/15/2015: Clairitin daily Problem List As Of Date 08/09/2023 Noted Resolved Essential hypertension [I10] Coronary atherosclerosis of unspecified type of* 04/19/2019 Obesity, unspecified [E66.9] 03/30/2017 HEARING LOSS NOS [H91.90] FAMILY HX GI MALIGNANCY [Z80.0] 08/16/2007 LOC PRIM OSTEOART-L/LEG [M17.10] 08/19/2007 Chronic obstructive pulmonary disease (HCC) [J4*08/19/2007 BENIGN NEOPLASM LG BOWEL [D12.6] 02/01/2008 Hyperlipidemia LDL goal <70 [E78.5] 02/16/2008 Gynecomastia [N62] 07/20/2012 Shoulder pain, right [M25.511] 08/09/2012 Abnormal stress test [R94.39] 07/01/2014 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] 07/01/2014 PVC's (premature ventricular contractions) [I49*07/01/2014 Pain in joint, shoulder region [M25.519] 02/10/2015 Complete tear of right rotator cuff [M75.121] 09/02/2015 Obesity (BMI 30.0-34.9) [E66.9] 03/30/2017 10/20/2018 Coronary artery disease involving igiugig lau*10/18/2017 Obesity, Class I, BMI 30-34.9 [E66.9] 10/18/2017 Dizziness [R42] 12/19/2017 Elevated fasting glucose [R73.01] 12/19/2017 Allergic rhinitis due to allergen [J30.9] 12/19/2017 PAD (peripheral artery disease) ([facility]) [I73.9] 03/16/2019 Pure hypercholesterolemia [E78.00] 04/20/2019 10/25/2022 Chronic pain of both knees [M25.561, M25.562, G*04/20/2019 Pain of right lower extremity [M79.604] 10/23/2019 Benign nodular prostatic hyperplasia without lo*01/20/2021 Actinic keratosis [L57.0] 01/20/2021 Lumbar stenosis with neurogenic claudication [M*04/09/2021 (more content not included)... [facility] 07-21-2023 Note HNO ID: [id number] Author: Aurelia Trevino MD Service: ? Author Type: Physician Type: Progress Notes Filed: 07/21/2023 3:47 PM Note Text: . [facility] [place] Note Patient name: George Lewis PCP: Husam Deras DO Referring Physician: Jocelin Henry, RAFAEL Consultation requested by Jocelin Castrologluz marina for an opinion regarding SOB. My final recommendations will be communicated back to the requesting physician by way of shared Medical record or letter to requesting physician via [place] mail. CC: SOB HPI: George Lewis 82 year old obese male former 30 pack year smoker having quit in 1989 with PMH significant for CAD s/p CABG, HTN being referred for evaluation of shortness of breath and hypoxemia. His main complaint is of LE neuropathy, pain and weakness. Limited in walking capacity due to his lower extremity issues. He is a somewhat difficult historian so I cannot pin him down on the duration of his SOB. One minute he states he has BO and the next he states he has no issues with SOB [facility]. Denies wheezing, sputum production. No recurrent bronchitis. He has sinus congestion and drainage that is associated with chest congestion in the morning. He uses Advair once daily. Has albuterol to use as needed but not certain this is helpful. He has noted increased difficulty with his breathing when it is cold. No other obvious triggers. Change of nasal sprays to Flonase has improved his am cough and congestion. Ambulation today confirms the need for supplemental oxygen. DATA: Oximetry with Ambulation Test for This Encounter O2 Device O2 Adapter NC O2 Flow SpO2% HR Activity Ft Walked (ft) Time (min) Avg Speed (MPH) R/A 95 59 Resting R/A 87 83 Walking, usual pace 270 2 1.53 NC 2 96 67 Resting NC 2 92 81 Walking, usual pace 380 3 1.44 General Information Pulse Oximetry Site Total Time Spent O2 Supply Carrier Walking Assistance/Device R Index Finger 30 3 Wheel Walker None NAME: GWEN Boswell PATIENT NAME: George Lewis DATE: July 21, 2023 TIME: 10:51 AM PFT: Spirometry shows mild obstruction with improvement in small airways obstruction post bronchodilator PFT 02/2022: Spirometry shows moderate obstruction with marked improvement post bronchodilator Labs: Component Ref Range AND Units 2 mo ago NT Pro BNP <450 pg/mL 335 Last CBC was normal. No anemia or polycythemia Imaging / Diagnostic Studies: CXR [facility] 07/2023: I personally reviewed the images which are unremarkable Echo 03/2023: CONCLUSIONS: - Technically difficult exam due to body habitus. - Exam indication: CAD - The left ventricle is normal in size. Left ventricular systolic function is normal. EF = 55 ? 5% (2D biplane) Definity contrast used for endocardial border detection. Grade I left ventricular diastolic dysfunction. - The right ventricle is normal in size. Right ventricular systolic function is normal. - There are no significant valvular abnormalities. - Exam was compared with the prior echocardiographic exam performed on 02/11/2022, no significant change. PAST MEDICAL HISTORY Diagnosis Date Benign neoplasm of colon 02/01/2008 COPD (chronic obstructive pulmonary disease) (HCC) Coronary atherosclerosis of unspecified type of vessel, igiugig or graft 09/12/1999 s/p CABG 1999, first he knew of CAD IFG (impaired fasting glucose) 11/2020 Obesity, unspecified Unspecified essential hypertension 09/12/1999 on BP meds since bypass Unspecified hearing loss mild/moderate, both ears; ALLERGIES Allergen Reactions Lipitor [Atorvastat* Intolerance Severe leg cramps, stopped albuterol HFA (PROVENTIL HFA, VENTOLIN HFA) 90 mcg/actuation inhalerInhale 2 Puffs as instructed every 4 hours as needed for wheezing/shortness of breath.Disp: 18 gRfl: 1 fluticasone (FLONASE) 50 mcg/actuation nasal sprayUse 2 Sprays in each nostril once daily. Rinse mouth after use.Disp: 16 gRfl: 0 gabapentin (NEURONTIN) 400 mg capsuleTake 1 capsule in the AM, 1 capsule in the afternoon and 2 capsules in the evening before bedDisp: 360 capsuleRfl: 1 meclizine (ANTIVERT) 25 mg tabTake 1 tablet by mouth every 6 hours as needed (dizziness).Disp: 20 tabletRfl: 6 amLODIPine (NORVASC) 10 mg tabletTake 1 tablet by mouth once daily.Disp: 90 tabletRfl: 1 furosemide (LASIX) 20 mg tabletTake 1 tablet by mouth once daily.Disp: 90 tabletRfl: 1 naproxen sodium (ALEVE) 220 mg capTake by mouth once daily.Disp: Rfl: tamsulosin (FLOMAX) 0.4 mgTake 1 capsule by mouth twice daily.Disp: 180 capsuleRfl: 3 nitroglycerin sublingual (NITROQUICK) 0.4 mg SL tabletDissolve 1 tablet under the tongue as needed. for chest pain,every 5 min x3Disp: 25 tabletRfl: 1 rosuvastatin (CRESTOR) 10 mg tabletTake 1 tablet by mouth once daily.Disp: 30 tabletRfl: 11 levothyroxine (LEVOXYL) 100 mcg tabletTake 1 tablet PO 5 days a week (more content not included)... [facility] 07-21-2023 Note HNO ID: [id number] Author: Stacia Davison RPFT Service: ? Author Type: Respiratory Therapist Type: Procedures Filed: 07/21/2023 10:52 AM Note Text: RESPIRATORY THERAPY OXIMETRY WITH AMBULATION Oximetry with Ambulation Test for This Encounter O2 Device O2 Adapter NC O2 Flow SpO2% HR Activity Ft Walked (ft) Time (min) Avg Speed (MPH) R/A 95 59 Resting R/A 87 83 Walking, usual pace 270 2 1.53 NC 2 96 67 Resting NC 2 92 81 Walking, usual pace 380 3 1.44 General Information Pulse Oximetry Site Total Time Spent O2 Supply Carrier Walking Assistance/Device R Index Finger 30 3 Wheel Walker None NAME: GWEN Boswell PATIENT NAME: George Lewis DATE: July 21, 2023 TIME: 10:51 AM Comment: [facility] 07-21-2023 Nurse Note Intake information documented in the prior visit with GWEN Boswell today. documented in this encounter [facility] 07-21-2023 Note HNO ID: [id number] Author: Stacia Davison RPFT Service: ? Author Type: Respiratory Therapist Type: Progress Notes Filed: 07/21/2023 10:52 AM Note Text: PULM FUNCTION SMARTBLOCK: Provider: Jocelin Henry APRN.PRECIPITATOR OPERATOR Assisting Tech: Stacia Davison RPFT Spirometry: 1 Oximetry - Ambulation: 1 [facility] 07-21-2023 History of Present illness Narrative Images from the original note were not included. . Res[facility] [place] Note Patient name: George Lewis PCP: Husam Deras DO Referring Physician: Jocelin Henry CNP Consultation requested by Joeclin Henry for an opinion regarding SOB. My final recommendations will be communicated back to the requesting physician by way of shared Medical record or letter to requesting physician via [place] mail. CC: SOB HPI: George Lewis 82 year old obese male former 30 pack year smoker having quit in 1989 with PMH significant for CAD s/p CABG, HTN being referred for evaluation of shortness of breath and hypoxemia. His main complaint is of LE neuropathy, pain and weakness. Limited in walking capacity due to his lower extremity issues. He is a somewhat difficult historian so I cannot pin him down on the duration of his SOB. One minute he states he has BO and the next he states he has no issues with SOB and walks around [employer] without difficulty. Denies wheezing, sputum production. No recurrent bronchitis. He has sinus congestion and drainage that is associated with chest congestion in the morning. He uses Advair once daily. Has albuterol to use as needed but not certain this is helpful. He has noted increased difficulty with his breathing when it is cold. No other obvious triggers. Change of nasal sprays to Flonase has improved his am cough and congestion. Ambulation today confirms the need for supplemental oxygen. DATA: Oximetry with Ambulation Test for This Encounter O2 Device O2 Adapter NC O2 Flow SpO2% HR Activity Ft Walked (ft) Time (min) Avg Speed (MPH) R/A 95 59 Resting R/A 87 83 Walking, usual pace 270 2 1.53 NC 2 96 67 Resting NC 2 92 81 Walking, usual pace 380 3 1.44 General Information Pulse Oximetry Site Total Time Spent O2 Supply Carrier Walking Assistance/Device R Index Finger 30 3 Wheel Walker None NAME: GWEN Boswell PATIENT NAME: George Lewis DATE: July 21, 2023 TIME: 10:51 AM PFT: Spirometry shows mild obstruction with improvement in small airways obstruction post bronchodilator PFT 02/2022: Spirometry shows moderate obstruction with marked improvement post bronchodilator Labs: Component Ref Range & Units 2 mo ago NT Pro BNP <450 pg/mL 335 Last CBC was normal. No anemia or polycythemia Imaging / Diagnostic Studies: CXR [facility] 07/2023: I personally reviewed the images which are unremarkable Echo 03/2023: CONCLUSIONS: - Technically difficult exam due to body habitus. - Exam indication: CAD - The left ventricle is normal in size. Left ventricular systolic function is normal. EF = 55 5% (2D biplane) Definity contrast used for endocardial border detection. Grade I left ventricular diastolic dysfunction. - The right ventricle is normal in size. Right ventricular systolic function is normal. - There are no significant valvular abnormalities. - Exam was compared with the prior echocardiographic exam performed on 02/11/2022, no significant change. PAST MEDICAL HISTORY Diagnosis Date Benign neoplasm of colon 02/01/2008 COPD (chronic obstructive pulmonary disease) (HCC) Coronary atherosclerosis of unspecified type of vessel, igiugig or graft 09/12/1999 s/p CABG 1999, first he knew of CAD IFG (impaired fasting glucose) 11/2020 Obesity, unspecified Unspecified essential hypertension 09/12/1999 on BP meds since bypass Unspecified hearing loss mild/moderate, both ears; ALLERGIES Allergen Reactions Lipitor [Atorvastat* Intolerance Severe leg cramps, stopped albuterol HFA (PROVENTIL HFA, VENTOLIN HFA) 90 mcg/actuation inhaler^Inhale 2 Puffs as instructed every 4 hours as needed for wheezing/shortness of breath.^Disp: 18 g^Rfl: 1 fluticasone (FLONASE) 50 mcg/actuation nasal spray^Use 2 Sprays in each nostril once daily. Rinse mouth after use.^Disp: 16 g^Rfl: 0 gabapentin (NEURONTIN) 400 mg capsule^Take 1 capsule in the AM, 1 capsule in the afternoon and 2 capsules in the evening before bed^Disp: 360 capsule^Rfl: 1 meclizine (ANTIVERT) 25 mg tab^Take 1 tablet by mouth every 6 hours as needed (dizziness).^Disp: 20 tablet^Rfl: 6 amLODIPine (NORVASC) 10 mg tablet^Take 1 tablet by mouth once daily.^Disp: 90 tablet^Rfl: 1 furosemide (LASIX) 20 mg tablet^Take 1 tablet by mouth once daily.^Disp: 90 tablet^Rfl: 1 naproxen sodium (ALEVE) 220 mg cap^Take by mouth once daily.^Disp: ^Rfl: tamsulosin (FLOMAX) 0.4 mg^Take 1 capsule by mouth twice daily.^Disp: 180 capsule^Rfl: 3 nitroglycerin sublingual (NITROQUICK) 0.4 mg SL tablet^Dissolve 1 tablet under the tongue as needed. for chest pain,every 5 min x3^Disp: 25 tablet^Rfl: 1 rosuvastatin (CRESTOR) 10 mg tablet^Take 1 tablet by mouth once daily.^Disp: 30 tablet^Rfl: 11 levothyroxine (LEVOXYL) 100 mcg tablet^Take 1 tablet PO 5 days a week in AM and take 2 tablets PO 2 days a week. Take on empty stomach. For Thyroid^Disp: 114 tablet^Rfl: 3 fluticasone-salmeterol (ADVAIR DISKUS) 100-50 mcg/dose inhaler^Inhale 1 Puff as instructed twice daily. Rinse mouth out after use with water.^Disp: 180 Each^Rfl: 1 hydroCHLOROthiazide (HYDRODIURIL, ESIDRIX) 12.5 mg tablet^Take 1 tablet by mouth once daily.^Disp: 90 tablet^Rfl: 3 lisinopril (ZESTRIL, PRINIVIL) 20 mg tablet^Take 1 tablet by mouth twice daily.^Disp: 180 tablet^Rfl: 3 atenolol (TENORMIN) 25 mg tablet^Take 1 tablet by mouth once daily.^Disp: 30 tablet^Rfl: 11 cetirizine (ZYRTEC) 10 mg tablet^Take 1 tablet by mouth once daily.^Disp: 30 tablet^Rfl: 5 meloxicam (MOBIC) 7.5 mg tablet^Take 1 tablet by mouth once daily. for pain. Take with food.^Disp: 30 tablet^Rfl: 1 psyllium Husk 0.52 gram capsule^Take 0.52 g by mouth once daily.^Disp: ^Rfl: docosahexaenoic acid/epa (FISH OIL ORAL)^Take by mouth once daily.^Disp: ^Rfl: ergocalciferol, vitamin D2, (VITAMIN D2 ORAL)^Take by mouth once daily. 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 Murray PAST SURGICAL HISTORY OF 1980 Bilateral shoulder surgery post trauma PMH, Social history, family history and surgical history reviewed and updated in EMR REVIEW OF SYSTEMS: CONSTITUTIONAL: No fevers, chills, nightsweats, unintended weight loss or gain HEENT: Positive nasal congestion/sinus symptoms without PND EYES: No diplopia or blurry vision. CARDIOVASCULAR: No chest pain, palpitations, orthopnea, PND. Edema PULM: See HPI GI: No dysphagia/odynophagia, problematic reflux : No urinary complaints, including dysuria, gross hematuria NEURO: No new balance problems. Positive peripheral weakness/paresthesias numbness MUSC-SKEL: No joint pain, swelling, or erythema. PSY: No concerns regarding depression, anxiety INTEGUMENTARY: No new skin changes or rashes PHYSICAL EXAMINATION: BP 122/58 Pulse 59 Resp 14 Ht 5' 9.88 (1.78m) Wt 246 lb (111.6kg) SpO2 95% BMI 35.42 kg/(m^2). General Appearance: Obese male, NAD. Skin: Skin color, texture, turgor normal, no suspicious rashes or lesions. UE ecchymoses Head: Normocephalic, no masses, lesions, tenderness or abnormalities. Eyes: Sclera, conjunctiva normal. Oropharynx: Upper plate, no lesions or thrush. Neck: No JVD, no masses, no TM. Lungs: Not labored, normal to percussion, no wheezes or crackles. Diminished breath sounds. Heart: RRR, no murmur. Extremities: Edema right > left, noclubbing. Musculoskeletal: No major joint deformities.. Lymph Nodes: No cervical lymphadenopathy and No supraclavicular lymphadenopathy. Assessment/Plan: Moderate COPD -Spirometry shows moderate COPD -Instructed patient to use Advair twice a day and continue albuterol as needed Hypoxemia -Qualifies for oxygen with activity. Likely needs oxygen at night as well -Order for oxygen Former smoker -Former 30 pack year smoker with sequelae of COPD -Does not meet criteria for lung cancer screening based on duration of cessation and age Obesity, class 2 -BMI 35 -Weight loss advised as this will improve his joint disease and his obstructive lung disease Aurelia Trevino MD Respiratory [place] documented in this encounter [facility] 07-20-2023 Note HNO ID: [id number] Author: Jocelin Henry APRN.PRECIPITATOR OPERATOR Service: ? Author Type: Nurse Practitioner Type: Progress Notes Filed: 07/20/2023 3:37 PM Note Text: 07/20/2023 Patient presents with: Shortness of Breath: X4 days. Seen in ED yesterday at [facility] SUBJECTIVE: This is a 82 year old that is here today for Above Complaints. HOSPITAL/ER FOLLOW UP: Reason for visit: shortness of breath Which facility: [facility] Date of visit: 07/20/2023 Diagnosis: ? Testing done: blood work, CXR, COVID-19 and influenza testing, EKG Treatment given: nothing For about three days has had some SOB mostly when bending over and when walking. Reports he has had a little sinus congestion. Using his maintenance inhaler as prescribed. Not suing albuterol inhaler as he reports he ran out. Denies fevers, chills, cough, wheezing, dyspnea, orthopnea, chest pain, palpitations, or leg swelling Available ER record reviewed. PAST MEDICAL HISTORY Diagnosis Date Benign neoplasm of colon 02/01/2008 Coronary atherosclerosis of unspecified type of vessel, igiugig or graft 09/12/1999 s/p CABG 1999, first he knew of CAD IFG (impaired fasting glucose) 11/2020 Obesity, unspecified Unspecified essential hypertension 09/12/1999 on BP meds since bypass Unspecified hearing loss mild/moderate, both ears; ALLERGIES Lipitor [Atorvastatin] MEDICATIONS Current Outpatient Medications Medication Sig gabapentin (NEURONTIN) 400 mg capsule Take 1 capsule in the AM, 1 capsule in the afternoon and 2 capsules in the evening before bed meclizine (ANTIVERT) 25 mg tab Take 1 tablet by mouth every 6 hours as needed (dizziness). amLODIPine (NORVASC) 10 mg tablet Take 1 tablet by mouth once daily. furosemide (LASIX) 20 mg tablet Take 1 tablet by mouth once daily. naproxen sodium (ALEVE) 220 mg cap Take by mouth once daily. tamsulosin (FLOMAX) 0.4 mg Take 1 capsule by mouth twice daily. nitroglycerin sublingual (NITROQUICK) 0.4 mg SL tablet Dissolve 1 tablet under the tongue as needed. for chest pain,every 5 min x3 rosuvastatin (CRESTOR) 10 mg tablet Take 1 tablet by mouth once daily. levothyroxine (LEVOXYL) 100 mcg tablet Take 1 tablet PO 5 days a week in AM and take 2 tablets PO 2 days a week. Take on empty stomach. For Thyroid fluticasone-salmeterol (ADVAIR DISKUS) 100-50 mcg/dose inhaler Inhale 1 Puff as instructed twice daily. Rinse mouth out after use with water. hydroCHLOROthiazide (HYDRODIURIL, ESIDRIX) 12.5 mg tablet Take 1 tablet by mouth once daily. lisinopril (ZESTRIL, PRINIVIL) 20 mg tablet Take 1 tablet by mouth twice daily. atenolol (TENORMIN) 25 mg tablet Take 1 tablet by mouth once daily. cetirizine (ZYRTEC) 10 mg tablet Take 1 tablet by mouth once daily. meloxicam (MOBIC) 7.5 mg tablet Take 1 tablet by mouth once daily. for pain. Take with food. psyllium Husk 0.52 gram capsule Take 0.52 g by mouth once daily. docosahexaenoic acid/epa (FISH OIL ORAL) Take by mouth once daily. ergocalciferol, vitamin D2, (VITAMIN D2 ORAL) Take by mouth once daily. DAILY MULTI-VITAMIN ORAL Take by mouth once daily. OTC PRODUCT Takes 1 spoonful of beet powder couple days a week aspirin, enteric coated 81 mg EC tablet Take 81 mg by mouth once daily. Current Facility-Administered Medications Medication Dose Route Frequency perflutren lipid microspheres 1.3 mL in NaCl (PF) 0.9% 10 mL injection (DEFINITY) INTRAVENOUS DIRECTED PRN sodium chloride 0.9 % (flush) 10 mL (BD POSIFLUSH) 10 mL INTRAVENOUS DIRECTED PRN Medications and allergies reviewed by this provider. SOCIAL HISTORY Social History Tobacco Use Smoking status: Former Types: Cigarettes Quit date: 09/12/1989 Years since quittin.8 Smokeless tobacco: Never Vaping Use Vaping Use: Never used Substance Use Topics Alcohol use: No Drug use: No REVIEW OF SYSTEMS All other reviewed and negative other than HPI. OBJECTIVE: BP 128/64 Pulse (!) 54 Resp 26 Wt 112.3 kg (247 lb 9.6 oz) SpO2 92% BMI 35.53 kg/m? . Vital signs reviewed by this provider. APPEARANCE Well appearing, alert, in no acute distress, well-hydrated, well nourished. EYES PERRLA, conjunctiva and sclera normal. HEART RRR with normal S1 and S2, no murmurs, no gallops, no JVD appreciated LUNG clear to auscultation. No wheezes, rhonchi or rales EXTREMITIES Extremities normal, No deformities, No skin discoloration, Normal pulses bilaterally., and mild swelling to RLE which he reports as normal for him SKIN Skin color, texture, turgor normal, no suspicious rashes or lesions to exposed skin RSV Vaccine(1 - 1-dose 60+ series) Never done Shingrix Vaccine(2 of 3) due on 03/11/2014 Influenza Vaccine(1) due on 05/13/2023 Covid-19 Vaccine( season) due on 05/13/2023 LDL Cholesterol due on 07/21/2023 Diabetes Screening due on 04/26/2026 DTaP,Tdap,Td Vaccine(2 - Td or Tdap) due on 08/30/2030 Spirometry Completed Depression Assessment Completed Pneu (more content not included)... [facility] 07-20-2023 Instructions Jocelin Henry APRN.CNP - 07/20/2023 3:16 PM EST If you develop increasing shortness of breath, difficulty breathing, or chest pain go to ER documented in this encounter [facility] 07-20-2023 History of Present illness Narrative 07/20/2023 Patient presents with: Shortness of Breath: X4 days. Seen in ED yesterday at [facility] SUBJECTIVE: This is a 82 year old that is here today for Above Complaints. HOSPITAL/ER FOLLOW UP: Reason for visit: shortness of breath Which facility: [facility] Date of visit: 07/20/2023 Diagnosis: ? Testing done: blood work, CXR, COVID-19 and influenza testing, EKG Treatment given: nothing For about three days has had some SOB mostly when bending over and when walking. Reports he has had a little sinus congestion. Using his maintenance inhaler as prescribed. Not suing albuterol inhaler as he reports he ran out. Denies fevers, chills, cough, wheezing, dyspnea, orthopnea, chest pain, palpitations, or leg swelling Available ER record reviewed. PAST MEDICAL HISTORY Diagnosis Date Benign neoplasm of colon 02/01/2008 Coronary atherosclerosis of unspecified type of vessel, igiugig or graft 09/12/1999 s/p CABG 1999, first he knew of CAD IFG (impaired fasting glucose) 11/2020 Obesity, unspecified Unspecified essential hypertension 09/12/1999 on BP meds since bypass Unspecified hearing loss mild/moderate, both ears; ALLERGIES Lipitor [Atorvastatin] MEDICATIONS Current Outpatient Medications Medication Sig gabapentin (NEURONTIN) 400 mg capsule Take 1 capsule in the AM, 1 capsule in the afternoon and 2 capsules in the evening before bed meclizine (ANTIVERT) 25 mg tab Take 1 tablet by mouth every 6 hours as needed (dizziness). amLODIPine (NORVASC) 10 mg tablet Take 1 tablet by mouth once daily. furosemide (LASIX) 20 mg tablet Take 1 tablet by mouth once daily. naproxen sodium (ALEVE) 220 mg cap Take by mouth once daily. tamsulosin (FLOMAX) 0.4 mg Take 1 capsule by mouth twice daily. nitroglycerin sublingual (NITROQUICK) 0.4 mg SL tablet Dissolve 1 tablet under the tongue as needed. for chest pain,every 5 min x3 rosuvastatin (CRESTOR) 10 mg tablet Take 1 tablet by mouth once daily. levothyroxine (LEVOXYL) 100 mcg tablet Take 1 tablet PO 5 days a week in AM and take 2 tablets PO 2 days a week. Take on empty stomach. For Thyroid fluticasone-salmeterol (ADVAIR DISKUS) 100-50 mcg/dose inhaler Inhale 1 Puff as instructed twice daily. Rinse mouth out after use with water. hydroCHLOROthiazide (HYDRODIURIL, ESIDRIX) 12.5 mg tablet Take 1 tablet by mouth once daily. lisinopril (ZESTRIL, PRINIVIL) 20 mg tablet Take 1 tablet by mouth twice daily. atenolol (TENORMIN) 25 mg tablet Take 1 tablet by mouth once daily. cetirizine (ZYRTEC) 10 mg tablet Take 1 tablet by mouth once daily. meloxicam (MOBIC) 7.5 mg tablet Take 1 tablet by mouth once daily. for pain. Take with food. psyllium Husk 0.52 gram capsule Take 0.52 g by mouth once daily. docosahexaenoic acid/epa (FISH OIL ORAL) Take by mouth once daily. ergocalciferol, vitamin D2, (VITAMIN D2 ORAL) Take by mouth once daily. DAILY MULTI-VITAMIN ORAL Take by mouth once daily. OTC PRODUCT Takes 1 spoonful of beet powder couple days a week aspirin, enteric coated 81 mg EC tablet Take 81 mg by mouth once daily. Current Facility-Administered Medications Medication Dose Route Frequency perflutren lipid microspheres 1.3 mL in NaCl (PF) 0.9% 10 mL injection (DEFINITY) INTRAVENOUS DIRECTED PRN sodium chloride 0.9 % (flush) 10 mL (BD POSIFLUSH) 10 mL INTRAVENOUS DIRECTED PRN Medications and allergies reviewed by this provider. SOCIAL HISTORY Social History Tobacco Use Smoking status: Former Types: Cigarettes Quit date: 09/12/1989 Years since quittin.8 Smokeless tobacco: Never Vaping Use Vaping Use: Never used Substance Use Topics Alcohol use: No Drug use: No REVIEW OF SYSTEMS All other reviewed and negative other than HPI. OBJECTIVE: BP 128/64 Pulse (!) 54 Resp 26 Wt 112.3 kg (247 lb 9.6 oz) SpO2 92% BMI 35.53 kg/m . Vital signs reviewed by this provider. APPEARANCE Well appearing, alert, in no acute distress, well-hydrated, well nourished. EYES PERRLA, conjunctiva and sclera normal. HEART RRR with normal S1 and S2, no murmurs, no gallops, no JVD appreciated LUNG clear to auscultation. No wheezes, rhonchi or rales EXTREMITIES Extremities normal, No deformities, No skin discoloration, Normal pulses bilaterally., and mild swelling to RLE which he reports as normal for him SKIN Skin color, texture, turgor normal, no suspicious rashes or lesions to exposed skin RSV Vaccine(1 - 1-dose 60+ series) Never done Shingrix Vaccine(2 of 3) due on 03/11/2014 Influenza Vaccine(1) due on 05/13/2023 Covid-19 Vaccine(2022- season) due on 05/13/2023 LDL Cholesterol due on 07/21/2023 Diabetes Screening due on 04/26/2026 DTaP,Tdap,Td Vaccine(2 - Td or Tdap) due on 08/30/2030 Spirometry Completed Depression Assessment Completed Pneumococcal Vaccine: 65+ Completed Colorectal Cancer Screening Discontinued Advance Directive Discussion Discontinued ASSESSMENT/PLAN: 1. SOB (shortness of breath) - ICD9: 786.05, ICD10: R06.02 (primary diagnosis) - patient walked in hallway with lowest pulse was 87% and recovered at 97% after sitting. Patient with leg claudication so and SOB so could only walk for short distance - no red flag symptoms or exam findings - red flag symptoms discussed, verbalizes understanding - SIX MINUTE WALK - CONSULT TO PULMONARY MEDICINE - ALBUTEROL SULFATE HFA 90 MCG/ACTUATION AEROSOL INHALER - INHALATIONAL SPACING DEVICE - ECHO completed in March for leg swelling and SOB so not necessary to repeat at this time - follow-up with pulmonology to ER with red flag symptoms 2. Exercise hypoxemia - ICD9: 799.02, ICD10: R09.02 - plan as in #1 - SIX MINUTE WALK 3. Sinus congestion - ICD9: 478.19, ICD10: R09.81 - FLUTICASONE PROPIONATE 50 MCG/ACTUATION NASAL SPRAY,SUSPENSION - follow-up if symptoms fail to improve Jocelin Henry APRN.RAFAEL Prescription instructions reviewed with patient as applicable. Patient advised if symptoms do not improve or if symptoms worsen sooner, to contact their primary care physician. Potential red flag symptoms discussed with the patient. Reviewed appropriate action plan to take if red flag symptoms occur. Patient agreeable to treatment plan. I spent a total of 30 minutes on the date of the service which included preparing to see the patient, [id number] patient care, completing clinical documentation, obtaining and/or reviewing separately obtained history, performing a medically appropriate examination, counseling and educating the patient/family/caregiver, and ordering medications, tests, or procedures. documented in this encounter [facility] 07-19-2023 Note HNO ID: [id number] Author: Zachary Jack APRN.CNP Service: ? Author Type: Nurse Practitioner Type: Progress Notes Filed: 07/19/2023 12:45 PM Note Text: Nontoxic-appearing male presents urgent care chief complaint shortness of breath. Patient states shortness of breath started this morning upon arising. Has worsened. States does have some chest discomfort. On evaluation was noted patient did have an irregular heartbeat. I recommended patient be seen the ED for further evaluation care. EMS transport offered patient declined transport. Will be seen at [place] ED. Zachary Jack APRN.CNP [facility] 07-19-2023 History of Present illness Narrative Nontoxic-appearing male presents urgent care chief complaint shortness of breath. Patient states shortness of breath started this morning upon arising. Has worsened. States does have some chest discomfort. On evaluation was noted patient did have an irregular heartbeat. I recommended patient be seen the ED for further evaluation care. EMS transport offered patient declined transport. Will be seen at [place] ED. Zachary Jack APRN.PRECIPITATOR OPERATOR documented in this encounter [facility] 07-12-2023 Note HNO ID: [id number] Author: Denisse Eller RN Service: ? Author Type: Registered Nurse Type: Progress Notes Filed: 07/12/2023 4:18 PM Note Text: [facility] Telephonic Outreach Provider Action/FYI Contacted for: Routine Telephonic Outreach Contact made with patient: No, left message. Denisse Eller RN July 12, 2023 4:16 PM [facility] 07-12-2023 Note Patient Outreach (AM [facility]) GEOREG LEWIS ([id number]) 1940 M Date Time Provider Department 07[facility]12[facility] [place] visit today, we recorded the following information about you: Denisse Eller RN 07/12/2023 4:18 PM Signed CD Telephonic Outreach Provider Action/FYI Contacted for: Routine Telephonic Outreach Contact made with patient: No, left message. Denisse Eller RN July 12, 2023 4:16 PM Allergies As of Date: 07/12/2023 Noted Allergy Reaction LIPITOR (ATORVASTATIN) 08/16/2007 5 - Intolerance Comments: Severe leg cramps, stopped Date Reviewed: 04/27/2023 Reviewed by: Pinky Miranda LPN - Fully Assessed Reason for Visit: cdm [Other] Cmt: Check in call Prescriptions as of 07/12/2023 - gabapentin (NEURONTIN) 400 mg capsule Take 1 capsule in the AM, 1 capsule in the afternoon and 2 capsules in the evening before bed - meclizine (ANTIVERT) 25 mg tab Take 1 tablet by mouth every 6 hours as needed (dizziness). - amLODIPine (NORVASC) 10 mg tablet Take 1 tablet by mouth once daily. - furosemide (LASIX) 20 mg tablet Take 1 tablet by mouth once daily. - naproxen sodium (ALEVE) 220 mg cap Take by mouth once daily. - tamsulosin (FLOMAX) 0.4 mg Take 1 capsule by mouth twice daily. - nitroglycerin sublingual (NITROQUICK) 0.4 mg SL tablet Dissolve 1 tablet under the tongue as needed. for chest pain,every 5 min x3 - rosuvastatin (CRESTOR) 10 mg tablet Take 1 tablet by mouth once daily. - levothyroxine (LEVOXYL) 100 mcg tablet Take 1 tablet PO 5 days a week in AM and take 2 tablets PO 2 days a week. Take on empty stomach. For Thyroid - fluticasone-salmeterol (ADVAIR DISKUS) 100-50 mcg/dose inhaler Inhale 1 Puff as instructed twice daily. Rinse mouth out after use with water. - hydroCHLOROthiazide (HYDRODIURIL, ESIDRIX) 12.5 mg tablet Take 1 tablet by mouth once daily. - lisinopril (ZESTRIL, PRINIVIL) 20 mg tablet Take 1 tablet by mouth twice daily. - atenolol (TENORMIN) 25 mg tablet Take 1 tablet by mouth once daily. - cetirizine (ZYRTEC) 10 mg tablet Take 1 tablet by mouth once daily. - meloxicam (MOBIC) 7.5 mg tablet Take 1 tablet by mouth once daily. for pain. Take with food. - psyllium Husk 0.52 gram capsule Take 0.52 g by mouth once daily. - docosahexaenoic acid/epa (FISH OIL ORAL) Take by mouth once daily. - ergocalciferol, vitamin D2, (VITAMIN D2 ORAL) Take by mouth once daily. - DAILY MULTI-VITAMIN ORAL Take by mouth once daily. - OTC PRODUCT Takes 1 spoonful of beet powder couple days a week - aspirin, enteric coated 81 mg EC tablet Take 81 mg by mouth once daily. Facility-Administered Medications as of 07/12/2023 - perflutren lipid microspheres 1.3 mL in NaCl (PF) 0.9% 10 mL injection (DEFINITY) - sodium chloride 0.9 % (flush) 10 mL (BD POSIFLUSH) Meds Comments as of 10/15/2015: Clairitin daily Problem List As Of Date 07/12/2023 Noted Resolved Essential hypertension [I10] Coronary atherosclerosis of unspecified type of* 04/19/2019 Obesity, unspecified [E66.9] 03/30/2017 HEARING LOSS NOS [H91.90] FAMILY HX GI MALIGNANCY [Z80.0] 08/16/2007 LOC PRIM OSTEOART-L/LEG [M17.10] 08/19/2007 Chronic obstructive pulmonary disease (HCC) [J4*08/19/2007 BENIGN NEOPLASM LG BOWEL [D12.6] 02/01/2008 Hyperlipidemia LDL goal <70 [E78.5] 02/16/2008 Gynecomastia [N62] 07/20/2012 Shoulder pain, right [M25.511] 08/09/2012 Abnormal stress test [R94.39] 07/01/2014 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] 07/01/2014 PVC's (premature ventricular contractions) [I49*07/01/2014 Pain in joint, shoulder region [M25.519] 02/10/2015 Complete tear of right rotator cuff [M75.121] 09/02/2015 Obesity (BMI 30.0-34.9) [E66.9] 03/30/2017 10/20/2018 Coronary artery disease involving igiugig lau*10/18/2017 Obesity, Class I, BMI 30-34.9 [E66.9] 10/18/2017 Dizziness [R42] 12/19/2017 Elevated fasting glucose [R73.01] 12/19/2017 Allergic rhinitis due to allergen [J30.9] 12/19/2017 PAD (peripheral artery disease) (HCC) [I73.9] 03/16/2019 Pure hypercholesterolemia [E78.00] 04/20/2019 10/25/2022 Chronic pain of both knees [M25.561, M25.562, G*04/20/2019 Pain of right lower extremity [M79.604] 10/23/2019 Benign nodular prostatic hyperplasia without lo*01/20/2021 Actinic keratosis [L57.0] 01/20/2021 Lumbar stenosis with neurogenic claudication [M*04/09/2021 Weight gain [R63.5] 07/21/2021 Vitamin D deficiency [E55.9] 07/21/2021 IFG (impaired fasting glucose) [R73.01] 07/21/2021 Hypothyroidism [E03.9] 10/19/2021 SOB (shortness of breath) [R06.02] 02/01/2022 Moderate persistent asthma, uncomplicated [J45.*04/14/2022 Restrictive airway disease [J98.4] 04/14/2022 Hereditary and idiopathic peripheral neuropathy*10/21/2022 Mixed hyperlipidemia [E78.2] 01/21/2023 Bilateral carotid artery stenosis [I65.23] 04/26/2023 Bilateral calf pain [M79.661, M79.662] 04/12 (more content not included)... [facility] 06-29-2023 Note HNO ID: [id number] Author: Denisse Eller RN Service: ? Author Type: Registered Nurse Type: Progress Notes Filed: 06/29/2023 10:29 AM Note Text: [facility] Telephonic Outreach Provider Action/FYI Contacted for: Routine Telephonic Outreach Contact made with patient: No, left message. Denisse Eller RN June 29, 2023 10:27 AM [facility] 06-29-2023 History of Present illness Narrative [facility] Telephonic Outreach Provider Action/FYI Contacted for: Routine Telephonic Outreach Contact made with patient: No, left message. Denisse Eller RN June 29, 2023 10:27 AM [facility] Telephonic Outreach Provider Action/FYI Contacted for: Routine Telephonic Outreach Contact made with patient: No, left message. Denisse Eller RN June 28, 2023 2:17 PM documented in this encounter [facility] 06-28-2023 Note HNO ID: [id number] Author: Denisse Eller RN Service: ? Author Type: Registered Nurse Type: Progress Notes Filed: 06/29/2023 10:29 AM Note Text: CD Telephonic Outreach Provider Action/FYI Contacted for: Routine Telephonic Outreach Contact made with patient: No, left message. Denisse Eller RN June 28, 2023 2:17 PM [facility] 06-28-2023 Note Patient Outreach (AM [facility]) GEORGE LEWIS ([id number]) 1940 M Date Time Provider Department 06/28/23 DENISSE ELLER [facility] During your visit today, we recorded the following information about you: Denisse Eller RN 06/29/2023 10:29 AM Signed [facility] Telephonic Outreach Provider Action/FYI Contacted for: Routine Telephonic Outreach Contact made with patient: No, left message. Denisse Eller RN June 28, 2023 2:17 PM Denisse Eller RN 06/29/2023 10:29 AM Signed [facility] Telephonic Outreach Provider Action/FYI Contacted for: Routine Telephonic Outreach Contact made with patient: No, left message. Denisse Eller RN June 29, 2023 10:27 AM Allergies As of Date: 06/28/2023 Noted Allergy Reaction LIPITOR (ATORVASTATIN) 08/16/2007 5 - Intolerance Comments: Severe leg cramps, stopped Date Reviewed: 04/27/2023 Reviewed by: Pinky Miranda LPN - Fully Assessed Reason for Visit: cdm [Other] Cmt: Check in call Prescriptions as of 06/29/2023 - gabapentin (NEURONTIN) 400 mg capsule Take 1 capsule in the AM, 1 capsule in the afternoon and 2 capsules in the evening before bed - meclizine (ANTIVERT) 25 mg tab Take 1 tablet by mouth every 6 hours as needed (dizziness). - amLODIPine (NORVASC) 10 mg tablet Take 1 tablet by mouth once daily. - furosemide (LASIX) 20 mg tablet Take 1 tablet by mouth once daily. - naproxen sodium (ALEVE) 220 mg cap Take by mouth once daily. - tamsulosin (FLOMAX) 0.4 mg Take 1 capsule by mouth twice daily. - nitroglycerin sublingual (NITROQUICK) 0.4 mg SL tablet Dissolve 1 tablet under the tongue as needed. for chest pain,every 5 min x3 - rosuvastatin (CRESTOR) 10 mg tablet Take 1 tablet by mouth once daily. - levothyroxine (LEVOXYL) 100 mcg tablet Take 1 tablet PO 5 days a week in AM and take 2 tablets PO 2 days a week. Take on empty stomach. For Thyroid - fluticasone-salmeterol (ADVAIR DISKUS) 100-50 mcg/dose inhaler Inhale 1 Puff as instructed twice daily. Rinse mouth out after use with water. - hydroCHLOROthiazide (HYDRODIURIL, ESIDRIX) 12.5 mg tablet Take 1 tablet by mouth once daily. - lisinopril (ZESTRIL, PRINIVIL) 20 mg tablet Take 1 tablet by mouth twice daily. - atenolol (TENORMIN) 25 mg tablet Take 1 tablet by mouth once daily. - cetirizine (ZYRTEC) 10 mg tablet Take 1 tablet by mouth once daily. - meloxicam (MOBIC) 7.5 mg tablet Take 1 tablet by mouth once daily. for pain. Take with food. - psyllium Husk 0.52 gram capsule Take 0.52 g by mouth once daily. - docosahexaenoic acid/epa (FISH OIL ORAL) Take by mouth once daily. - ergocalciferol, vitamin D2, (VITAMIN D2 ORAL) Take by mouth once daily. - DAILY MULTI-VITAMIN ORAL Take by mouth once daily. - OTC PRODUCT Takes 1 spoonful of beet powder couple days a week - aspirin, enteric coated 81 mg EC tablet Take 81 mg by mouth once daily. 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] 08/19/2007 Chronic obstructive pulmonary disease (HCC) [J4*08/19/2007 BENIGN NEOPLASM LG BOWEL [D12.6] 02/01/2008 Hyperlipidemia LDL goal <70 [E78.5] 02/16/2008 Gynecomastia [N62] 07/20/2012 Shoulder pain, right [M25.511] 08/09/2012 Abnormal stress test [R94.39] 07/01/2014 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] 07/01/2014 PVC's (premature ventricular contractions) [I49*07/01/2014 Pain in joint, shoulder region [M25.519] 02/10/2015 Complete tear of right rotator cuff [M75.121] 09/02/2015 Obesity (BMI 30.0-34.9) [E66.9] 03/30/2017 10/20/2018 Coronary artery disease involving igiugig lau*10/18/2017 Obesity, Class I, BMI 30-34.9 [E66.9] 10/18/2017 Dizziness [R42] 12/19/2017 Elevated fasting glucose [R73.01] 12/19/2017 Allergic rhinitis due to allergen [J30.9] 12/19/2017 PAD (peripheral artery disease) ([facility]) [I73.9] 03/16/2019 Pure hypercholesterolemia [E78.00] 04/20/2019 10/25/2022 Chronic pain of both knees [M25.561, M25.562, G*04/20/2019 Pain of right lower extremity [M79.604] 10/23/2019 Benign nodular prostatic hyperplasia without lo*01/20/2021 Actinic keratosis [L57.0] 01/20/2021 Lumbar stenosis with neurogenic claudication [M*04/09/2021 Weight gain [R63.5] 07/21/2021 Vitamin D deficiency [E55.9] 07/21/2021 IFG (impaired fasting glucose) [R73.01] 07/21/2021 Hypothyroidism [E03.9] 10/19/2021 SOB (shortness of breath) [R06.02] 02/01/2022 Moderate persistent asthma, uncomplicated [J45.*04/14/2022 Restrictive a (more content not included)... [facility] 05-31-2023 Note Patient Outreach (AM [facility]) GEORGE LEWIS ([id number]) 1940 M Date Time Provider Department [facility]/31[facility] your visit today, we recorded the following information about you: Denisse Eller RN 05/31/2023 9:24 AM Signed [facility] Telephonic Outreach Provider Action/FYI Contacted for: Routine Telephonic Outreach Contact made with patient: Yes Patient identified by name and date of . Discussed care with patient Are you experiencing any new or worsening symptoms you need to talk about today? No Disease Specific Do you check your blood pressure at home? No Do you have new or worsening shortness of breath with activity? No Do you have new or worsening cough? No Do you have new or worsening wheezing? No Do you need to use your rescue (Albuterol) inhaler or nebulizer more often than normal? No Based on glove turner and former automatic, the following disposition is advised: No symptoms or symptoms present, not severe. Routed to: No Action Needed NEISHA Education Provided this Outreach: No Denisse Eller RN May 31, 2023 9:23 AM Allergies As of Date: 05/31/2023 Noted Allergy Reaction LIPITOR (ATORVASTATIN) 08/16/2007 5 - Intolerance Comments: Severe leg cramps, stopped Date Reviewed: 04/27/2023 Reviewed by: Pinky Miranda LPN - Fully Assessed Reason for Visit: cdm [Other] Cmt: Check in call Prescriptions as of 05/31/2023 - gabapentin (NEURONTIN) 400 mg capsule Take 1 capsule in the AM, 1 capsule in the afternoon and 2 capsules in the evening before bed - meclizine (ANTIVERT) 25 mg tab Take 1 tablet by mouth every 6 hours as needed (dizziness). - amLODIPine (NORVASC) 10 mg tablet Take 1 tablet by mouth once daily. - furosemide (LASIX) 20 mg tablet Take 1 tablet by mouth once daily. - naproxen sodium (ALEVE) 220 mg cap Take by mouth once daily. - tamsulosin (FLOMAX) 0.4 mg Take 1 capsule by mouth twice daily. - nitroglycerin sublingual (NITROQUICK) 0.4 mg SL tablet Dissolve 1 tablet under the tongue as needed. for chest pain,every 5 min x3 - rosuvastatin (CRESTOR) 10 mg tablet Take 1 tablet by mouth once daily. - levothyroxine (LEVOXYL) 100 mcg tablet Take 1 tablet PO 5 days a week in AM and take 2 tablets PO 2 days a week. Take on empty stomach. For Thyroid - fluticasone-salmeterol (ADVAIR DISKUS) 100-50 mcg/dose inhaler Inhale 1 Puff as instructed twice daily. Rinse mouth out after use with water. - hydroCHLOROthiazide (HYDRODIURIL, ESIDRIX) 12.5 mg tablet Take 1 tablet by mouth once daily. - lisinopril (ZESTRIL, PRINIVIL) 20 mg tablet Take 1 tablet by mouth twice daily. - atenolol (TENORMIN) 25 mg tablet Take 1 tablet by mouth once daily. - cetirizine (ZYRTEC) 10 mg tablet Take 1 tablet by mouth once daily. - meloxicam (MOBIC) 7.5 mg tablet Take 1 tablet by mouth once daily. for pain. Take with food. - psyllium Husk 0.52 gram capsule Take 0.52 g by mouth once daily. - docosahexaenoic acid/epa (FISH OIL ORAL) Take by mouth once daily. - ergocalciferol, vitamin D2, (VITAMIN D2 ORAL) Take by mouth once daily. - DAILY MULTI-VITAMIN ORAL Take by mouth once daily. - OTC PRODUCT Takes 1 spoonful of beet powder couple days a week - aspirin, enteric coated 81 mg EC tablet Take 81 mg by mouth once daily. Facility-Administered Medications as of 05/31/2023 - perflutren lipid microspheres 1.3 mL in NaCl (PF) 0.9% 10 mL injection (DEFINITY) - sodium chloride 0.9 % (flush) 10 mL (BD POSIFLUSH) Meds Comments as of 10/15/2015: Clairitin daily Problem List As Of Date 05/31/2023 Noted Resolved Essential hypertension [I10] Coronary atherosclerosis of unspecified type of* 04/19/2019 Obesity, unspecified [E66.9] 03/30/2017 HEARING LOSS NOS [H91.90] FAMILY HX GI MALIGNANCY [Z80.0] 08/16/2007 LOC PRIM OSTEOART-L/LEG [M17.10] 08/19/2007 Chronic obstructive pulmonary disease (HCC) [J4*08/19/2007 BENIGN NEOPLASM LG BOWEL [D12.6] 02/01/2008 Hyperlipidemia LDL goal <70 [E78.5] 02/16/2008 Gynecomastia [N62] 07/20/2012 Shoulder pain, right [M25.511] 08/09/2012 Abnormal stress test [R94.39] 07/01/2014 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] 07/01/2014 PVC's (premature ventricular contractions) [I49*07/01/2014 Pain in joint, shoulder region [M25.519] 02/10/2015 Complete tear of right rotator cuff [M75.121] 09/02/2015 Obesity (BMI 30.0-34.9) [E66.9] 03/30/2017 10/20/2018 Coronary artery disease involving igiugig lau*10/18/2017 Obesity, Class I, BMI 30-34.9 [E66.9] 10/18/2017 Dizziness [R42] 12/19/2017 Elevated fasting glucose [R73.01] 12/19/2017 Allergic rhinitis due to allergen [J30.9] 12/19/2017 PAD (peripheral artery disease) (HCC) [I73.9] 03/16/2019 Pure hypercholesterolemia [E78.00] 04/20/2019 10/25/2022 Chronic pain of both knees [M25.561, M25.562, G*04/20/2019 Pain of right lower extremity [M79.604] 10/23/2019 Benign nodular prostatic hyperpl (more content not included)... [facility] 05-31-2023 Note HNO ID: [id number] Author: Denisse Eller RN Service: ? Author Type: Registered Nurse Type: Progress Notes Filed: 05/31/2023 9:24 AM Note Text: [facility] Telephonic Outreach Provider Action/FYI Contacted for: Routine Telephonic Outreach Contact made with patient: Yes Patient identified by name and date of . Discussed care with patient Are you experiencing any new or worsening symptoms you need to talk about today? No Disease Specific Do you check your blood pressure at home? No Do you have new or worsening shortness of breath with activity? No Do you have new or worsening cough? No Do you have new or worsening wheezing? No Do you need to use your rescue (Albuterol) inhaler or nebulizer more often than normal? No Based on glove turner and former automatic, the following disposition is advised: No symptoms or symptoms present, not severe. Routed to: No Action Needed NEISHA Education Provided this Outreach: No Denisse Eller RN May 31, 2023 9:23 AM [facility] 05-31-2023 History of Present illness Narrative [facility] Telephonic Outreach Provider Action/FYI Contacted for: Routine Telephonic Outreach Contact made with patient: Yes Patient identified by name and date of . Discussed care with patient Are you experiencing any new or worsening symptoms you need to talk about today? No Disease Specific Do you check your blood pressure at home? No Do you have new or worsening shortness of breath with activity? No Do you have new or worsening cough? No Do you have new or worsening wheezing? No Do you need to use your rescue (Albuterol) inhaler or nebulizer more often than normal? No Based on glove turner and former automatic, the following disposition is advised: No symptoms or symptoms present, not severe. Routed to: No Action Needed NEISHA Education Provided this Outreach: No Denisse Eller RN May 31, 2023 9:23 AM documented in this encounter [facility] 05-03-2023 Note Patient Outreach (AM [facility]) GEORGE LEWIS ([id number]) 1940 M Date Time Provider Department 05/03/23 DENISSE ELLERG During your visit today, we recorded the following information about you: Denisse Eller RN 05/03/2023 9:36 AM Signed [facility] Telephonic Outreach Provider Action/JUDY Copd; pain remains to feet since six years ago Still going to appt for feet Contacted for: Routine Telephonic Outreach Contact made with patient: Yes Patient identified by name and date of . Discussed care with patient Are you experiencing any new or worsening symptoms you need to talk about today? No Disease Specific Do you check your blood pressure at home? No Do you have new or worsening shortness of breath with activity? No Do you have new or worsening cough? No Do you have new or worsening wheezing? No Do you need to use your rescue (Albuterol) inhaler or nebulizer more often than normal? No Based on glove turner and former automatic, the following disposition is advised: No symptoms or symptoms present, not severe. Routed to: No Action Needed NEISHA Education Provided this Outreach: No Denisse Eller RN May 03, 2023 9:35 AM Allergies As of Date: 05/03/2023 Noted Allergy Reaction LIPITOR (ATORVASTATIN) 08/16/2007 5 - Intolerance Comments: Severe leg cramps, stopped Date Reviewed: 04/27/2023 Reviewed by: Pinky Miranda LPN - Fully Assessed Reason for Visit: cdm [Other] Cmt: Check in call Prescriptions as of 05/03/2023 - gabapentin (NEURONTIN) 400 mg capsule Take 1 capsule in the AM, 1 capsule in the afternoon and 2 capsules in the evening before bed - meclizine (ANTIVERT) 25 mg tab Take 1 tablet by mouth every 6 hours as needed (dizziness). - amLODIPine (NORVASC) 10 mg tablet Take 1 tablet by mouth once daily. - furosemide (LASIX) 20 mg tablet Take 1 tablet by mouth once daily. - naproxen sodium (ALEVE) 220 mg cap Take by mouth once daily. - tamsulosin (FLOMAX) 0.4 mg Take 1 capsule by mouth twice daily. - nitroglycerin sublingual (NITROQUICK) 0.4 mg SL tablet Dissolve 1 tablet under the tongue as needed. for chest pain,every 5 min x3 - rosuvastatin (CRESTOR) 10 mg tablet Take 1 tablet by mouth once daily. - levothyroxine (LEVOXYL) 100 mcg tablet Take 1 tablet PO 5 days a week in AM and take 2 tablets PO 2 days a week. Take on empty stomach. For Thyroid - fluticasone-salmeterol (ADVAIR DISKUS) 100-50 mcg/dose inhaler Inhale 1 Puff as instructed twice daily. Rinse mouth out after use with water. - hydroCHLOROthiazide (HYDRODIURIL, ESIDRIX) 12.5 mg tablet Take 1 tablet by mouth once daily. - lisinopril (ZESTRIL, PRINIVIL) 20 mg tablet Take 1 tablet by mouth twice daily. - atenolol (TENORMIN) 25 mg tablet Take 1 tablet by mouth once daily. - cetirizine (ZYRTEC) 10 mg tablet Take 1 tablet by mouth once daily. - meloxicam (MOBIC) 7.5 mg tablet Take 1 tablet by mouth once daily. for pain. Take with food. - psyllium Husk 0.52 gram capsule Take 0.52 g by mouth once daily. - docosahexaenoic acid/epa (FISH OIL ORAL) Take by mouth once daily. - ergocalciferol, vitamin D2, (VITAMIN D2 ORAL) Take by mouth once daily. - DAILY MULTI-VITAMIN ORAL Take by mouth once daily. - OTC PRODUCT Takes 1 spoonful of beet powder couple days a week - aspirin, enteric coated 81 mg EC tablet Take 81 mg by mouth once daily. Facility-Administered Medications as of 05/03/2023 - perflutren lipid microspheres 1.3 mL in NaCl (PF) 0.9% 10 mL injection (DEFINITY) - sodium chloride 0.9 % (flush) 10 mL (BD POSIFLUSH) - sodium chloride 0.9 % (flush) 10 mL (BD POSIFLUSH) Meds Comments as of 10/15/2015: Clairitin daily Problem List As Of Date 05/03/2023 Noted Resolved Essential hypertension [I10] Coronary atherosclerosis of unspecified type of* 04/19/2019 Obesity, unspecified [E66.9] 03/30/2017 HEARING LOSS NOS [H91.90] FAMILY HX GI MALIGNANCY [Z80.0] 08/16/2007 LOC PRIM OSTEOART-L/LEG [M17.10] 08/19/2007 Chronic obstructive pulmonary disease (HCC) [J4*08/19/2007 BENIGN NEOPLASM LG BOWEL [D12.6] 02/01/2008 Hyperlipidemia LDL goal <70 [E78.5] 02/16/2008 Gynecomastia [N62] 07/20/2012 Shoulder pain, right [M25.511] 08/09/2012 Abnormal stress test [R94.39] 07/01/2014 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] 07/01/2014 PVC's (premature ventricular contractions) [I49*07/01/2014 Pain in joint, shoulder region [M25.519] 02/10/2015 Complete tear of right rotator cuff [M75.121] 09/02/2015 Obesity (BMI 30.0-34.9) [E66.9] 03/30/2017 10/20/2018 Coronary artery disease involving igiugig lau*10/18/2017 Obesity, Class I, BMI 30-34.9 [E66.9] 10/18/2017 Dizziness [R42] 12/19/2017 Elevated fasting glucose [R73.01] 12/19/2017 Allergic rhinitis due to allergen [J30.9] 12/19/2017 PAD (peripheral artery disease) ([facility]) [I73.9] 03/16/2019 Pure hypercholesterolemia [E78.00] 04/20/2019 10/25/2022 Chronic pain o (more content not included)... [facility] 05-03-2023 Note HNO ID: [id number] Author: Denisse Eller RN Service: ? Author Type: Registered Nurse Type: Progress Notes Filed: 05/03/2023 9:36 AM Note Text: [facility] Telephonic Outreach Provider Action/FYI Copd; pain remains to feet since six years ago Still going to appt for feet Contacted for: Routine Telephonic Outreach Contact made with patient: Yes Patient identified by name and date of . Discussed care with patient Are you experiencing any new or worsening symptoms you need to talk about today? No Disease Specific Do you check your blood pressure at home? No Do you have new or worsening shortness of breath with activity? No Do you have new or worsening cough? No Do you have new or worsening wheezing? No Do you need to use your rescue (Albuterol) inhaler or nebulizer more often than normal? No Based on glove turner and former automatic, the following disposition is advised: No symptoms or symptoms present, not severe. Routed to: No Action Needed NEISHA Education Provided this Outreach: No Denisse Eller RN May 03, 2023 9:35 AM [facility] 05-03-2023 History of Present illness Narrative [facility] Telephonic Outreach Provider Action/JUDY Copd; pain remains to feet since six years ago Still going to appt for feet Contacted for: Routine Telephonic Outreach Contact made with patient: Yes Patient identified by name and date of . Discussed care with patient Are you experiencing any new or worsening symptoms you need to talk about today? No Disease Specific Do you check your blood pressure at home? No Do you have new or worsening shortness of breath with activity? No Do you have new or worsening cough? No Do you have new or worsening wheezing? No Do you need to use your rescue (Albuterol) inhaler or nebulizer more often than normal? No Based on glove turner and former automatic, the following disposition is advised: No symptoms or symptoms present, not severe. Routed to: No Action Needed NEISHA Education Provided this Outreach: No Denisse Eller RN May 03, 2023 9:35 AM documented in this encounter [facility] 04-27-2023 Note HNO ID: [id number] Author: Husam Deras, DO Service: ? Author Type: Physician Type: Progress Notes Filed: 04/27/2023 1:00 PM Note Text: CC: George Lewis is a 82 year old male who presents to the office for follow up HPI: Diagnosed with PAD, has carotid artery atherosclerosis, has seen vascular specialist Dr. [facility] and has seen Dr. Bueno Clinical Massage Therapist. Struggling with walking due to b/l below the knee pain that only improves with rest. Isn't getting as much exercise as he should and he knows this. Isn't able to walk more than 80 feet without stopping for a few minutes to rest and then pain resolves, restarts again with exercises Neuropathy, peripheral, worse at bedtime, taking gabapentin as prescribed, wondering if able to increase night dose Hyperkalemia, knows was eating a lot of bananas and sweet potatoes, is going to cut back on this. IFG, diet controlled. Knows need for weight loss. Has cut out most of his sugar in his diet. HTN, well controlled, denies any CP or dyspnea or Dizziness or LH No new urinary symptoms Bowel function is normal. No blood in stool PAST MEDICAL HISTORY Diagnosis Date Benign neoplasm of colon 02/01/2008 Coronary atherosclerosis of unspecified type of vessel, igiugig or graft 09/12/1999 s/p CABG 1999, first he knew of CAD IFG (impaired fasting glucose) 11/2020 Obesity, unspecified Unspecified essential hypertension 09/12/1999 on BP meds since bypass Unspecified hearing loss mild/moderate, both ears; PAST SURGICAL HISTORY Procedure Laterality Date COLONOSCOPY FLX DX W/COLLJ SPEC WHEN PFRMD 02/07/2014 Colonoscopy COLONOSCOPY FLX DX W/COLLJ SPEC WHEN PFRMD 03/07/2019 Colonoscopy COLONOSCOPY W/BIOPSY SINGLE/MULTIPLE 02/01/08 HEMORRHOIDECTOMY XTRNL 2/> COLUMN/GROUP 1989 hemorrhoidectomy PAST SURGICAL HISTORY OF 1999 CABG x 3, [facility], Dr. Murray PAST SURGICAL HISTORY OF 1980 Bilateral shoulder surgery post trauma Current Outpatient Medications Medication Sig furosemide (LASIX) 20 mg tablet Take 1 tablet by mouth once daily. naproxen sodium (ALEVE) 220 mg cap Take by mouth once daily. tamsulosin (FLOMAX) 0.4 mg Take 1 capsule by mouth twice daily. nitroglycerin sublingual (NITROQUICK) 0.4 mg SL tablet Dissolve 1 tablet under the tongue as needed. for chest pain,every 5 min x3 rosuvastatin (CRESTOR) 10 mg tablet Take 1 tablet by mouth once daily. levothyroxine (LEVOXYL) 100 mcg tablet Take 1 tablet PO 5 days a week in AM and take 2 tablets PO 2 days a week. Take on empty stomach. For Thyroid fluticasone-salmeterol (ADVAIR DISKUS) 100-50 mcg/dose inhaler Inhale 1 Puff as instructed twice daily. Rinse mouth out after use with water. hydroCHLOROthiazide (HYDRODIURIL, ESIDRIX) 12.5 mg tablet Take 1 tablet by mouth once daily. lisinopril (ZESTRIL, PRINIVIL) 20 mg tablet Take 1 tablet by mouth twice daily. atenolol (TENORMIN) 25 mg tablet Take 1 tablet by mouth once daily. cetirizine (ZYRTEC) 10 mg tablet Take 1 tablet by mouth once daily. meloxicam (MOBIC) 7.5 mg tablet Take 1 tablet by mouth once daily. for pain. Take with food. psyllium Husk 0.52 gram capsule Take 0.52 g by mouth once daily. docosahexaenoic acid/epa (FISH OIL ORAL) Take by mouth once daily. ergocalciferol, vitamin D2, (VITAMIN D2 ORAL) Take by mouth once daily. DAILY MULTI-VITAMIN ORAL Take by mouth once daily. OTC PRODUCT Takes 1 spoonful of beet powder couple days a week aspirin, enteric coated 81 mg EC tablet Take 81 mg by mouth once daily. gabapentin (NEURONTIN) 400 mg capsule Take 1 capsule in the AM, 1 capsule in the afternoon and 2 capsules in the evening before bed meclizine (ANTIVERT) 25 mg tab Take 1 tablet by mouth every 6 hours as needed (dizziness). amLODIPine (NORVASC) 10 mg tablet Take 1 tablet by mouth once daily. Current Facility-Administered Medications Medication Dose Route Frequency perflutren lipid microspheres 1.3 mL in NaCl (PF) 0.9% 10 mL injection (DEFINITY) INTRAVENOUS DIRECTED PRN sodium chloride 0.9 % (flush) 10 mL (BD POSIFLUSH) 10 mL INTRAVENOUS DIRECTED PRN sodium chloride 0.9 % (flush) 10 mL (BD POSIFLUSH) 10 mL INTRAVENOUS DIRECTED PRN ALLERGIES Allergen Reactions Lipitor [Atorvastat* Intolerance Severe leg cramps, stopped Social History Tobacco Use Smoking status: Former Types: Cigarettes Quit date: 09/12/1989 Years since quittin.6 Smokeless tobacco: Never Vaping Use Vaping Use: Never used Substance Use Topics Alcohol use: No Drug use: No ROS: See HPI PE: BP 138/60 Pulse 64 Temp (Src) 98 (Left Tympanic) Resp 20 Wt 243 lb (110.2kg) Gen: AANDO, NAD, non-toxic appearing, Pleasant, cooperative HEENT: NT/AC, PERRLA, EOMs intact b/l, nares clear and patent b/l, pharynx without erythema, exudate or lesions. Uvula midline. MMM Neck: supple, No cervical LAD, no thyromegaly, + left carotid bruit CV: RRR, normal S1 and S2, no murmurs, no gallops (more content not included)... [facility] 04-27-2023 History of Present illness Narrative CC: George Lewis is a 82 year old male who presents to the office for follow up HPI: Diagnosed with PAD, has carotid artery atherosclerosis, has seen vascular specialist Dr. [facility] and has seen Dr. Bueno Clinical Massage Therapist. Struggling with walking due to b/l below the knee pain that only improves with rest. Isn't getting as much exercise as he should and he knows this. Isn't able to walk more than 80 feet without stopping for a few minutes to rest and then pain resolves, restarts again with exercises Neuropathy, peripheral, worse at bedtime, taking gabapentin as prescribed, wondering if able to increase night dose Hyperkalemia, knows was eating a lot of bananas and sweet potatoes, is going to cut back on this. IFG, diet controlled. Knows need for weight loss. Has cut out most of his sugar in his diet. HTN, well controlled, denies any CP or dyspnea or Dizziness or LH No new urinary symptoms Bowel function is normal. No blood in stool PAST MEDICAL HISTORY Diagnosis Date Benign neoplasm of colon 02/01/2008 Coronary atherosclerosis of unspecified type of vessel, igiugig or graft 09/12/1999 s/p CABG 1999, first he knew of CAD IFG (impaired fasting glucose) 11/2020 Obesity, unspecified Unspecified essential hypertension 09/12/1999 on BP meds since bypass Unspecified hearing loss mild/moderate, both ears; PAST SURGICAL HISTORY Procedure Laterality Date COLONOSCOPY FLX DX W/COLLJ SPEC WHEN PFRMD 02/07/2014 Colonoscopy COLONOSCOPY FLX DX W/COLLJ SPEC WHEN PFRMD 03/07/2019 Colonoscopy COLONOSCOPY W/BIOPSY SINGLE/MULTIPLE 02/01/08 HEMORRHOIDECTOMY XTRNL 2/> COLUMN/GROUP 1989 hemorrhoidectomy PAST SURGICAL HISTORY OF 1999 CABG x 3, [facility], Dr. Murray PAST SURGICAL HISTORY OF 1980 Bilateral shoulder surgery post trauma Current Outpatient Medications Medication Sig furosemide (LASIX) 20 mg tablet Take 1 tablet by mouth once daily. naproxen sodium (ALEVE) 220 mg cap Take by mouth once daily. tamsulosin (FLOMAX) 0.4 mg Take 1 capsule by mouth twice daily. nitroglycerin sublingual (NITROQUICK) 0.4 mg SL tablet Dissolve 1 tablet under the tongue as needed. for chest pain,every 5 min x3 rosuvastatin (CRESTOR) 10 mg tablet Take 1 tablet by mouth once daily. levothyroxine (LEVOXYL) 100 mcg tablet Take 1 tablet PO 5 days a week in AM and take 2 tablets PO 2 days a week. Take on empty stomach. For Thyroid fluticasone-salmeterol (ADVAIR DISKUS) 100-50 mcg/dose inhaler Inhale 1 Puff as instructed twice daily. Rinse mouth out after use with water. hydroCHLOROthiazide (HYDRODIURIL, ESIDRIX) 12.5 mg tablet Take 1 tablet by mouth once daily. lisinopril (ZESTRIL, PRINIVIL) 20 mg tablet Take 1 tablet by mouth twice daily. atenolol (TENORMIN) 25 mg tablet Take 1 tablet by mouth once daily. cetirizine (ZYRTEC) 10 mg tablet Take 1 tablet by mouth once daily. meloxicam (MOBIC) 7.5 mg tablet Take 1 tablet by mouth once daily. for pain. Take with food. psyllium Husk 0.52 gram capsule Take 0.52 g by mouth once daily. docosahexaenoic acid/epa (FISH OIL ORAL) Take by mouth once daily. ergocalciferol, vitamin D2, (VITAMIN D2 ORAL) Take by mouth once daily. DAILY MULTI-VITAMIN ORAL Take by mouth once daily. OTC PRODUCT Takes 1 spoonful of beet powder couple days a week aspirin, enteric coated 81 mg EC tablet Take 81 mg by mouth once daily. gabapentin (NEURONTIN) 400 mg capsule Take 1 capsule in the AM, 1 capsule in the afternoon and 2 capsules in the evening before bed meclizine (ANTIVERT) 25 mg tab Take 1 tablet by mouth every 6 hours as needed (dizziness). amLODIPine (NORVASC) 10 mg tablet Take 1 tablet by mouth once daily. Current Facility-Administered Medications Medication Dose Route Frequency perflutren lipid microspheres 1.3 mL in NaCl (PF) 0.9% 10 mL injection (DEFINITY) INTRAVENOUS DIRECTED PRN sodium chloride 0.9 % (flush) 10 mL (BD POSIFLUSH) 10 mL INTRAVENOUS DIRECTED PRN sodium chloride 0.9 % (flush) 10 mL (BD POSIFLUSH) 10 mL INTRAVENOUS DIRECTED PRN ALLERGIES Allergen Reactions Lipitor [Atorvastat* Intolerance Severe leg cramps, stopped Social History Tobacco Use Smoking status: Former Types: Cigarettes Quit date: 09/12/1989 Years since quittin.6 Smokeless tobacco: Never Vaping Use Vaping Use: Never used Substance Use Topics Alcohol use: No Drug use: No ROS: See HPI PE: BP 138/60 Pulse 64 Temp (Src) 98 (Left Tympanic) Resp 20 Wt 243 lb (110.2kg) Gen: A&O, NAD, non-toxic appearing, Pleasant, cooperative HEENT: NT/AC, PERRLA, EOMs intact b/l, nares clear and patent b/l, pharynx without erythema, exudate or lesions. Uvula midline. MMM Neck: supple, No cervical LAD, no thyromegaly, + left carotid bruit CV: RRR, normal S1 and S2, no murmurs, no gallops, no rubs, Pulses 2+ and symmetric in UE Lungs: normal respiratory effort, CTA b/l, no wheezing or rhonchi or rales Abd: soft, obese, NT, ND, +BS, no hepatosplenomegaly MS: FROM all 4 extremities Neuro: CN II-XII intact b/l, strength 5/5 b/l UE and LE, DTRs 2/4 UE and LE, sensation intact. Skin: warm, dry, intact, No rashes or lesions on exposed skin. Trace ankle edema b/l present Slightly diminished dorsalis pedis and post tibial pulses b/l ASSESSMENT/PLAN: 1. Hereditary and idiopathic peripheral neuropathy - ICD9: 356.9, ICD10: G60.9 (primary diagnosis) Increase dose of gabapentin to 800 mg in evening, continue 400 mg in AM and 400 mg in afternoon, contributing to his pain at night and difficulty with falling asleep at night 2. Dizziness - ICD9: 780.4, ICD10: R42 rx refilled, chronic, stable. - MECLIZINE 25 MG TABLET 3. PAD (peripheral artery disease) (HCC) - ICD9: 443.9, ICD10: I73.9 - f/u with specialist, unsure if he is able to get some claudication relief from a procedure or medication? 4. Hypothyroidism, unspecified type - ICD9: 244.9, ICD10: E03.9 - Instructed patient on importance of taking on an empty stomach either first thing in the morning or at bedtime. - continue current dose of Synthroid Stable - Behavioral intervention, - Eat well program, and - Continue current medications 5. Essential hypertension - ICD9: 401.9, ICD10: I10 - Controlled - Continue current medications - Recommend home blood pressure monitoring, to bring results to next visit - Encouraged sodium restriction, DASH or Mediterranean diet - Recommend regular aerobic exercise - Discussed need for and benefit of weight loss. BMI 34.87 kg/(m^2) 6. Bilateral calf pain - ICD9: 729.5, ICD10: M79.661, M79.662 Secondary to PAD and neuropathy, see above 7. Mixed hyperlipidemia - ICD9: 272.2, ICD10: E78.2 - Controlled - Continue current medications - Counseled on healthy diet and regular exercise Husam Deras DO Return if no improvement. Follow up with Husam Deras DO. To ER if develops chest pain, shortness of breath Discussed risks, benefits, alternatives, and potential side effects of medications. Patient/Guardian expressed understanding and agreed with the plan. See patient instructions. Husam Deras DO [address] [place] [address] documented in this encounter [facility] 04-27-2023 Instructions Husam Deras DO - 04/27/2023 12:41 PM EDT Foods high in potassium- need to limit these Potassium is widely available in many foods, especially fruits and vegetables. Leafy greens, beans, nuts, dairy foods, and starchy vegetables like winter squash are rich sources. Dried fruits (raisins, apricots) Beans, lentils Potatoes Winter squash (acorn, butternut) Spinach, broccoli Beet greens Avocado Bananas Cantaloupe Oranges, orange juice Coconut water Tomatoes Dairy and plant milks (soy, almond) Yogurt Cashews, almonds Chicken [place] documented in this encounter [facility] 04-26-2023 Note HNO ID: [id number] Author: Gideon Bueno DO Service: ? Author Type: Physician Type: Progress Notes Filed: 04/26/2023 9:30 AM Note Text: [facility] SE[facility]IOLOG[facility] OUTPATIENT VISIT DATE April 26, 2023 PRIMARY CARE PHYSICIAN: Husam Deras [address] [place] [address] HISTORY OF PRESENT ILLNESS: Mr. Lewis is a 82 year old male. The patient returns 5 seconds cortices status post chordee bypass grafting x3 with severe igiugig disease with patent bypass grafts by recent heart catheterization. Additional history includes hypertension, hyperlipidemia, prediabetes, bilateral carotid stenosis of moderate degree and bilateral lower extremity peripheral arterial disease of moderate degree by resting ankle-brachial indices. He denies chest scar, dyspnea, orthopnea, paroxysmal nocturnal dyspnea, palpitations, near-syncope or syncope. He also is hypothyroid notes intermittent flaring of weight gain and loss in a few days. Recent labs demonstrate hyperkalemia from a couple days ago. The patient has had worsening claudication and actually has symptoms which worsen with position. He notes that he is now down to 100 feet over the last few weeks before his claudication onset. He does have degenerative knee disease but recently had injections and feels wonderful to that specification. He also has degenerative spine disease and has been told that his spine is not causing his bilateral lower extremity leg burning. PLAN AND RECOMMENDATIONS: Patient does not have symptoms of suggest angina or cardiac decompensation but does have unexplained weight loss and gain which may be fluid related. He does have hyperkalemia as well. At this point in time we have told him to redraw a BMP to also draw a BMP. Secondly, his progressive potential claudication symptoms we will perform a stress RIAN. If either we will otherwise look forward to seeing him we will leave further evaluation management to the discretion. Heart rate, blood pressure recent cholesterol profile were favorable. We have therefore made no additions or changes. Dietary and lifestyle modification were we discussed for risk factor reduction. Vitals: BP 124/62 Pulse 60 Ht 177.8 cm (5' 10 ) Wt 109.8 kg (242 lb) SpO2 97% BMI 34.72 kg/m? Physical Exam Vitals reviewed. Constitutional: General: He is not in acute distress. Appearance: He is well-developed. He is not diaphoretic. HENT: Head: Normocephalic and atraumatic. Right Ear: External ear normal. Left Ear: External ear normal. Nose: Nose normal. Eyes: General: No scleral icterus. Right eye: No discharge. Left eye: No discharge. Pupils: Pupils are equal, round, and reactive to light. Neck: Thyroid: No thyromegaly. Vascular: No JVD. Cardiovascular: Rate and Rhythm: Normal rate and regular rhythm. Heart sounds: No murmur heard. No friction rub. No gallop. Pulmonary: Effort: Pulmonary effort is normal. No respiratory distress. Breath sounds: Normal breath sounds. No wheezing or rales. Abdominal: General: Bowel sounds are normal. Palpations: Abdomen is soft. Musculoskeletal: General: Normal range of motion. Cervical back: Neck supple. Skin: General: Skin is warm and dry. Coloration: Skin is not pale. Neurological: Mental Status: He is alert and oriented to person, place, and time. Cranial Nerves: No cranial nerve deficit. Psychiatric: Mood and Affect: Mood is not anxious or depressed. Behavior: Behavior normal. Thought Content: Thought content normal. Judgment: Judgment normal. Review of Systems Constitutional: Negative for activity change, appetite change, fatigue and unexpected weight change. HENT: Negative for ear pain and trouble swallowing. Eyes: Negative for pain and visual disturbance. Respiratory: Negative for chest tightness and shortness of breath. Cardiovascular: Negative for chest pain, palpitations and leg swelling. +Claudication Gastrointestinal: Negative for abdominal pain and blood in stool. Endocrine: Negative for cold intolerance and heat intolerance. Genitourinary: Negative for dysuria, hematuria and scrotal swelling. Musculoskeletal: Positive for arthralgias. Negative for myalgias and neck pain. Skin: Negative for pallor and rash. Allergic/Immunologic: Negative for immunocompromised state. Neurological: Negative for dizziness, syncope and light-headedness. Hematological: Negative for adenopathy. Does not bruise/bleed easily. Psychiatric/Behavioral: Negative for sleep disturbance. The patient is not nervous/anxious. PAST MEDICAL HISTORY Diagnosis Date Benign neoplasm of colon 02/01/2008 Coronary atherosclerosis of unspecified type of vessel, igiugig or graft 09/12/1999 s/p CABG 1999, first he knew of CAD IFG (impaired fasting glucose) 11/2020 Obesity, unspecified Unspec (more content not included)... [facility] 04-26-2023 History of Present illness Narrative Images from the original note were not included. [facility] SECTION [facility]ARDIOLOG[facility] OUTPATIENT VISIT DATE April 26, 2023 PRIMARY CARE PHYSICIAN: Husam Deras [address] [place] [address] HISTORY OF PRESENT ILLNESS: Mr. Lewis is a 82 year old male. The patient returns 5 seconds cortices status post chordee bypass grafting x3 with severe igiugig disease with patent bypass grafts by recent heart catheterization. Additional history includes hypertension, hyperlipidemia, prediabetes, bilateral carotid stenosis of moderate degree and bilateral lower extremity peripheral arterial disease of moderate degree by resting ankle-brachial indices. He denies chest scar, dyspnea, orthopnea, paroxysmal nocturnal dyspnea, palpitations, near-syncope or syncope. He also is hypothyroid notes intermittent flaring of weight gain and loss in a few days. Recent labs demonstrate hyperkalemia from a couple days ago. The patient has had worsening claudication and actually has symptoms which worsen with position. He notes that he is now down to 100 feet over the last few weeks before his claudication onset. He does have degenerative knee disease but recently had injections and feels wonderful to that specification. He also has degenerative spine disease and has been told that his spine is not causing his bilateral lower extremity leg burning. PLAN AND RECOMMENDATIONS: Patient does not have symptoms of suggest angina or cardiac decompensation but does have unexplained weight loss and gain which may be fluid related. He does have hyperkalemia as well. At this point in time we have told him to redraw a BMP to also draw a BMP. Secondly, his progressive potential claudication symptoms we will perform a stress RIAN. If either we will otherwise look forward to seeing him we will leave further evaluation management to the discretion. Heart rate, blood pressure recent cholesterol profile were favorable. We have therefore made no additions or changes. Dietary and lifestyle modification were we discussed for risk factor reduction. Vitals: BP 124/62 Pulse 60 Ht 177.8 cm (5' 10 ) Wt 109.8 kg (242 lb) SpO2 97% BMI 34.72 kg/m Physical Exam Vitals reviewed. Constitutional: General: He is not in acute distress. Appearance: He is well-developed. He is not diaphoretic. HENT: Head: Normocephalic and atraumatic. Right Ear: External ear normal. Left Ear: External ear normal. Nose: Nose normal. Eyes: General: No scleral icterus. Right eye: No discharge. Left eye: No discharge. Pupils: Pupils are equal, round, and reactive to light. Neck: Thyroid: No thyromegaly. Vascular: No JVD. Cardiovascular: Rate and Rhythm: Normal rate and regular rhythm. Heart sounds: No murmur heard. No friction rub. No gallop. Pulmonary: Effort: Pulmonary effort is normal. No respiratory distress. Breath sounds: Normal breath sounds. No wheezing or rales. Abdominal: General: Bowel sounds are normal. Palpations: Abdomen is soft. Musculoskeletal: General: Normal range of motion. Cervical back: Neck supple. Skin: General: Skin is warm and dry. Coloration: Skin is not pale. Neurological: Mental Status: He is alert and oriented to person, place, and time. Cranial Nerves: No cranial nerve deficit. Psychiatric: Mood and Affect: Mood is not anxious or depressed. Behavior: Behavior normal. Thought Content: Thought content normal. Judgment: Judgment normal. Review of Systems Constitutional: Negative for activity change, appetite change, fatigue and unexpected weight change. HENT: Negative for ear pain and trouble swallowing. Eyes: Negative for pain and visual disturbance. Respiratory: Negative for chest tightness and shortness of breath. Cardiovascular: Negative for chest pain, palpitations and leg swelling. +Claudication Gastrointestinal: Negative for abdominal pain and blood in stool. Endocrine: Negative for cold intolerance and heat intolerance. Genitourinary: Negative for dysuria, hematuria and scrotal swelling. Musculoskeletal: Positive for arthralgias. Negative for myalgias and neck pain. Skin: Negative for pallor and rash. Allergic/Immunologic: Negative for immunocompromised state. Neurological: Negative for dizziness, syncope and light-headedness. Hematological: Negative for adenopathy. Does not bruise/bleed easily. Psychiatric/Behavioral: Negative for sleep disturbance. The patient is not nervous/anxious. PAST MEDICAL HISTORY Diagnosis Date Benign neoplasm of colon 02/01/2008 Coronary atherosclerosis of unspecified type of vessel, igiugig or graft 09/12/1999 s/p CABG 1999, first he knew of CAD IFG (impaired fasting glucose) 11/2020 Obesity, unspecified Unspecified essential hypertension 09/12/1999 on BP meds since bypass Unspecified hearing loss mild/moderate, both ears; PAST SURGICAL HISTORY Procedure Laterality Date COLONOSCOPY FLX DX W/COLLJ SPEC WHEN PFRMD 02/07/2014 Colonoscopy COLONOSCOPY FLX DX W/COLLJ SPEC WHEN PFRMD 03/07/2019 Colonoscopy COLONOSCOPY W/BIOPSY SINGLE/MULTIPLE 02/01/08 HEMORRHOIDECTOMY XTRNL 2/> COLUMN/GROUP 1989 hemorrhoidectomy PAST SURGICAL HISTORY OF 1999 CABG x 3, [facility], Dr. Murray PAST SURGICAL HISTORY OF 1980 Bilateral shoulder surgery post trauma Social History Tobacco Use Smoking status: Former Types: Cigarettes Quit date: 09/12/1989 Years since quittin.6 Smokeless tobacco: Never Vaping Use Vaping Use: Never used Substance Use Topics Alcohol use: No Drug use: No FAMILY HISTORY Problem Relation Age of Onset Colon Cancer Mother before age 60 (pt unsure) Coronary Artery Disease Father of presumed CA; heavy drinker Alcohol/Drug Father Prostate Cancer Other none Diabetes Other none ALLERGIES Allergen Reactions Lipitor [Atorvastat* Intolerance Severe leg cramps, stopped CURRENT MEDICATIONS: furosemide (LASIX) 20 mg tablet^Take 1 tablet by mouth once daily.^Disp: 90 tablet^Rfl: 1 naproxen sodium (ALEVE) 220 mg cap^Take by mouth once daily.^Disp: ^Rfl: tamsulosin (FLOMAX) 0.4 mg^Take 1 capsule by mouth twice daily.^Disp: 180 capsule^Rfl: 3 nitroglycerin sublingual (NITROQUICK) 0.4 mg SL tablet^Dissolve 1 tablet under the tongue as needed. for chest pain,every 5 min x3^Disp: 25 tablet^Rfl: 1 rosuvastatin (CRESTOR) 10 mg tablet^Take 1 tablet by mouth once daily.^Disp: 30 tablet^Rfl: 11 meclizine (ANTIVERT) 25 mg tab^Take 1 tablet by mouth every 6 hours as needed (dizziness).^Disp: 20 tablet^Rfl: 6 levothyroxine (LEVOXYL) 100 mcg tablet^Take 1 tablet PO 5 days a week in AM and take 2 tablets PO 2 days a week. Take on empty stomach. For Thyroid^Disp: 114 tablet^Rfl: 3 fluticasone-salmeterol (ADVAIR DISKUS) 100-50 mcg/dose inhaler^Inhale 1 Puff as instructed twice daily. Rinse mouth out after use with water.^Disp: 180 Each^Rfl: 1 hydroCHLOROthiazide (HYDRODIURIL, ESIDRIX) 12.5 mg tablet^Take 1 tablet by mouth once daily.^Disp: 90 tablet^Rfl: 3 lisinopril (ZESTRIL, PRINIVIL) 20 mg tablet^Take 1 tablet by mouth twice daily.^Disp: 180 tablet^Rfl: 3 atenolol (TENORMIN) 25 mg tablet^Take 1 tablet by mouth once daily.^Disp: 30 tablet^Rfl: 11 amLODIPine (NORVASC) 10 mg tablet^Take 1 tablet by mouth once daily.^Disp: 90 tablet^Rfl: 1 cetirizine (ZYRTEC) 10 mg tablet^Take 1 tablet by mouth once daily.^Disp: 30 tablet^Rfl: 5 meloxicam (MOBIC) 7.5 mg tablet^Take 1 tablet by mouth once daily. for pain. Take with food.^Disp: 30 tablet^Rfl: 1 psyllium Husk 0.52 gram capsule^Take 0.52 g by mouth once daily.^Disp: ^Rfl: docosahexaenoic acid/epa (FISH OIL ORAL)^Take by mouth once daily.^Disp: ^Rfl: ergocalciferol, vitamin D2, (VITAMIN D2 ORAL)^Take by mouth once daily. ^Disp: ^Rfl: DAILY MULTI-VITAMIN ORAL^Take by mouth once daily.^Disp: ^Rfl: OTC PRODUCT^Takes 1 spoonful of beet powder couple days a week ^Disp: ^Rfl: aspirin, enteric coated 81 mg EC tablet^Take 81 mg by mouth once daily.^Disp: ^Rfl: gabapentin (NEURONTIN) 400 mg capsule^Take 1 capsule by mouth three times daily for 30 days.^Disp: 270 capsule^Rfl: 1 albuterol HFA (VENTOLIN HFA) 90 mcg/actuation inhaler^Inhale 2 Puffs as instructed every 4 hours as needed for wheezing/shortness of breath.^Disp: 36 g^Rfl: 3 Gideon Bueno DO, FACC, [facility] Community Engagement Representative, [facility] Amb[facility] Community Engagement Representative, [facility] Cardiac Rehabilitation Community Engagement Representative, [facility] Community Engagement Representative, [facility] Community Engagement Representative, [facility] Clinical Supervisor [employer] Profressor of Medicine, [facility] Staff Clinical Massage Therapist, Bruce Black Department of Cardiovascular Medicine/Heart and Vascular [place], [facility] Please note: This note has been produced using speech recognition software and may contain errors related to that system including jessica, punctuation, spelling, words, gender and phrases that may be inappropriate. documented in this encounter [facility] 04-18-2023 Note HNO ID: [id number] Author: Seble Zepeda PA-C Service: ? Author Type: Physician Supervisor [employer] Type: Progress Notes Filed: 04/19/2023 4:18 PM Note Text: Seble Zepeda PA-C Department of Orthopaedics Orthopaedics [address] [address] Dept: [phone] Dept April 18, 2023 CHIEF COMPLAINT: Established Patient and Knee Pain of the Left Knee (Xrays taken today) and Established Patient and Knee Pain of the Right Knee (Xrays taken today). ASSESSMENT: M17.0 Primary osteoarthritis of both knees (primary encounter diagnosis) M25.561, M25.562, G89.29 Chronic pain of both knees M11.269 Chondrocalcinosis of knee, unspecified laterality SUMMARY/PLAN: Patient presents with bilateral knee pain, he is requesting repeat bilateral knee Visco supplementation, he had Euflexxa in June 2022, he finds the Euflexxa injections to be very beneficial. He is able to walk longer distances and reports less pain in his knees following the injections. He estimates that injections are helpful for about 6 months. We will start the prior authorization process for repeat Euflexxa injections today, in the meantime patient would like to proceed with bilateral knee corticosteroid injections to help with his knee pain. Large Joint Arthro/Inj: bilateral knee joints Informed Consent Consent Obtained: Verbal [place] Protocol A moment to CARE was completed. SIGN IN Sign in communication not applicable due to emergent procedure. Personnel directly involved with the procedure wore the appropriate PPE. Special Equipment: N/A Patient/Surrogate Stated/Verified: Patient name, Date of , Relevant allergies and Intended procedure TIME OUT Intended patient and procedure match the source document(s). Consent documented and matches the intended procedure. Relevant labs, photos, and/or imaging studies have been reviewed. Correct side/site marked and visible. Medications required for procedure verified. No fire risk assessment and interventions applicable. No implant(s) inserted. 04/18/2023 10:38 AM The procedure site was prepped in the usual sterile fashion. Site: bilateral knee joints Medications (Right): 6 mg betamethasone acetate-betamethasone sodium phosphate 6 mg/mL Medications (Left): 6 mg betamethasone acetate-betamethasone sodium phosphate 6 mg/mL Anesthetics (Right): 5 mL lidocaine (PF) 10 mg/mL (1 %) Anesthetics (Left): 5 mL lidocaine (PF) 10 mg/mL (1 %) Outcome: Tolerated well, no immediate complications Post-injection instructions were reviewed with the patient and the patient voiced understanding of these instructions. SIGN OUT No instruments, equipment or retained foreign bodies applicable. Rationale for Viscosupplementation: Renewal Request As a part of a multimodal treatment plan, we are requesting authorization of hyaluronic acid viscosupplementation injections for the improvement of symptoms related to osteoarthritis. Authorization is being requested for treatment of Bilateral knees. Rationale for authorization of these injections is based on the following elements: Signs and Symptoms Length of symptoms > 3 months Pain interferes with ADLs? Yes Radiographic evidence of OA? Yes Previous Treatments Bracing attempted? No Formal Physical Therapy (PT)/ Home Exercise Program (HEP) attempted? Patient completed a comprehensive PT program with compliance to HEP NSAID medication attempted? Contraindicated Corticosteroid injection attempted? Patient has had a previous CSI with intermittent relief Weight management attempted? No Prior Viscosupplementation Prior viscosupplementation? Yes Prior viscosupplementation improved symptoms? Yes Prior viscosupplementation improved symptoms at least 6 months? Yes Patient continues to be symptomatic despite above treatment attempts. Requested Viscosupplementation Preferred product: Euflexxa Alternative product: Euflexxa or payor preferred Imaging: * * *Final Report* * * DATE OF EXAM: Apr 18 2023 8:57AM [id number] - XR KNEE 4V AP/PA/LAT/MERCH FREDDY / PROCEDURE REASON: multiple diagnoses * * * * Physician Interpretation * * * * EXAMINATION: XR KNEE 4V AP/PA/LAT/MERCH FREDDY CLINICAL HISTORY: Bilateral knee pain Technique: XR KNEE 4V AP/PA/LAT/MERCH FREDDY -- BILATERAL with 5 views on 5 images Comparison: X-ray bilateral knees 08/24/2021 RESULT: Right knee: No acute fracture or dislocation. There is a subchondral defect in the right medial femoral condyle which appears slightly larger compared to the previous examination. There is unchanged narrowing of the medial and lateral compartments of the right knee with subchondral sclerosis and marginal osteophytes. There are small patellofemoral compartment marginal osteophytes. Vascular calcifications are noted. Left knee: No acute fracture or dislocation. Severe narrowing of the medial compartment of the (more content not included)... [facility] 04-18-2023 Note HNO ID: [id number] Author: Noris Dietz Service: ? Author Type: ? Type: Progress Notes Filed: 04/19/2023 4:18 PM Note Text: Patient presents with: Left Knee - Established Patient, Knee Pain: Xrays taken today Right Knee - Established Patient, Knee Pain: Xrays taken today Patient reports pain that returned about 2 months ago. He reports previous injections that gave him relief. He is also seeing pain management for his back and feet. AMB ROOMING INTAKE FLOWSHEET DATA Pain Pain Level: 6 Pain Location: Knee-Left (knee right) Description: Dull, Radiating Duration Amount of Time: 2 Duration Units: Months Frequency: Continuous Intervention/Comfort measure: Medication Comments: lizalexradha santos [facility] 04-18-2023 Note HNO ID: [id number] Author: Tolu Donaldson RT(R) Service: ? Author Type: Technologist Type: Progress Notes Filed: 04/18/2023 8:55 AM Note Text: Radiology Service Progress Note PATIENT NAME: George Lewis DATE OF SERVICE: April 18, 2023 TIME: 8:40 AM PATIENT IDENTITY VERIFICATION COMPLETED USING TWO (2) IDENTIFIERS: Name and Date of confirmed by patient verbally. FALL SCREENING: Has the patient had 2 falls in the last year or 1 fall with injury or currently using an Ambulatory Assistive Device (Walker, Cane, Wheelchair, Crutches, etc.)? No PATIENT GENDER DATA: Male PATIENT RELEVANT IMPLANT DATA REVIEWED: Not Applicable RADIOLOGY DEPARTMENT: General X-ray: Exam(s) Completed: Lower Extremity X-Ray(s): Knee, AP / Lat / Tunne / Merchant Bilateral and Wt. Bearing PERIPHERAL IV DATA: Not applicable SIGNED BY: RT Noemi(R) April 18, 2023 8:40 AM [facility] 04-18-2023 History of Present illness Narrative Associated Order(s): Large Joint Arthro/Inj: bilateral knee joints Post-Procedure Diagnose(s): Primary osteoarthritis of both knees; Chronic pain of both knees; Chondrocalcinosis of knee, unspecified laterality Seble Zepeda PA-C Department of Orthopaedics Orthopaedics [address] [facility] [address] Dept: [phone] Dept April 18, 2023 CHIEF COMPLAINT: Established Patient and Knee Pain of the Left Knee (Xrays taken today) and Established Patient and Knee Pain of the Right Knee (Xrays taken today). ASSESSMENT: M17.0 Primary osteoarthritis of both knees (primary encounter diagnosis) M25.561, M25.562, G89.29 Chronic pain of both knees M11.269 Chondrocalcinosis of knee, unspecified laterality SUMMARY/PLAN: Patient presents with bilateral knee pain, he is requesting repeat bilateral knee Visco supplementation, he had Euflexxa in June 2022, he finds the Euflexxa injections to be very beneficial. He is able to walk longer distances and reports less pain in his knees following the injections. He estimates that injections are helpful for about 6 months. We will start the prior authorization process for repeat Euflexxa injections today, in the meantime patient would like to proceed with bilateral knee corticosteroid injections to help with his knee pain. Large Joint Arthro/Inj: bilateral knee joints Informed Consent Consent Obtained: Verbal [place] Protocol A moment to CARE was completed. SIGN IN Sign in communication not applicable due to emergent procedure. Personnel directly involved with the procedure wore the appropriate PPE. Special Equipment: N/A Patient/Surrogate Stated/Verified: Patient name, Date of , Relevant allergies and Intended procedure TIME OUT Intended patient and procedure match the source document(s). Consent documented and matches the intended procedure. Relevant labs, photos, and/or imaging studies have been reviewed. Correct side/site marked and visible. Medications required for procedure verified. No fire risk assessment and interventions applicable. No implant(s) inserted. 04/18/2023 10:38 AM The procedure site was prepped in the usual sterile fashion. Site: bilateral knee joints Medications (Right): 6 mg betamethasone acetate-betamethasone sodium phosphate 6 mg/mL Medications (Left): 6 mg betamethasone acetate-betamethasone sodium phosphate 6 mg/mL Anesthetics (Right): 5 mL lidocaine (PF) 10 mg/mL (1 %) Anesthetics (Left): 5 mL lidocaine (PF) 10 mg/mL (1 %) Outcome: Tolerated well, no immediate complications Post-injection instructions were reviewed with the patient and the patient voiced understanding of these instructions. SIGN OUT No instruments, equipment or retained foreign bodies applicable. Rationale for Viscosupplementation: Renewal Request As a part of a multimodal treatment plan, we are requesting authorization of hyaluronic acid viscosupplementation injections for the improvement of symptoms related to osteoarthritis. Authorization is being requested for treatment of Bilateral knees. Rationale for authorization of these injections is based on the following elements: Signs and Symptoms Length of symptoms > 3 months Pain interferes with ADLs? Yes Radiographic evidence of OA? Yes Previous Treatments Bracing attempted? No Formal Physical Therapy (PT)/ Home Exercise Program (HEP) attempted? Patient completed a comprehensive PT program with compliance to HEP NSAID medication attempted? Contraindicated Corticosteroid injection attempted? Patient has had a previous CSI with intermittent relief Weight management attempted? No Prior Viscosupplementation Prior viscosupplementation? Yes Prior viscosupplementation improved symptoms? Yes Prior viscosupplementation improved symptoms at least 6 months? Yes Patient continues to be symptomatic despite above treatment attempts. Requested Viscosupplementation Preferred product: Euflexxa Alternative product: Euflexxa or payor preferred Imaging: * * *Final Report* * * DATE OF EXAM: Apr 18 2023 8:57AM [id number] [id number] - XR KNEE 4V AP/PA/LAT/MERCH FREDDY / PROCEDURE REASON: multiple diagnoses * * * * Physician Interpretation * * * * EXAMINATION: XR KNEE 4V AP/PA/LAT/MERCH FREDDY CLINICAL HISTORY: Bilateral knee pain Technique: XR KNEE 4V AP/PA/LAT/MERCH FREDDY -- BILATERAL with 5 views on 5 images Comparison: X-ray bilateral knees 08/24/2021 RESULT: Right knee: No acute fracture or dislocation. There is a subchondral defect in the right medial femoral condyle which appears slightly larger compared to the previous examination. There is unchanged narrowing of the medial and lateral compartments of the right knee with subchondral sclerosis and marginal osteophytes. There are small patellofemoral compartment marginal osteophytes. Vascular calcifications are noted. Left knee: No acute fracture or dislocation. Severe narrowing of the medial compartment of the left knee is subchondral sclerosis and marginal osteophytes. Small patellofemoral compartment marginal osteophytes. Vascular calcifications are noted. IMPRESSION IMPRESSION: No acute fracture. Degenerative disease of bilateral knees. Manager Business Intelligence: [facility] Transcribe Date/Time: Apr 19 2023 4:11P Dictated by : ALBA MCCLOUD MD This examination was interpreted and the report reviewed and electronically signed by: ALBA MCCLOUD MD on Apr 19 2023 4:14PM EST Mr. George Lewis was advised as to contrast therapies and/or to take analgesics/anti-inflammatories as needed and all contraindications were reviewed. Supporting Information Below: Medications: Current Outpatient Medications Medication Sig furosemide (LASIX) 20 mg tablet Take 1 tablet by mouth once daily. naproxen sodium (ALEVE) 220 mg cap Take by mouth once daily. tamsulosin (FLOMAX) 0.4 mg Take 1 capsule by mouth twice daily. nitroglycerin sublingual (NITROQUICK) 0.4 mg SL tablet Dissolve 1 tablet under the tongue as needed. for chest pain,every 5 min x3 rosuvastatin (CRESTOR) 10 mg tablet Take 1 tablet by mouth once daily. meclizine (ANTIVERT) 25 mg tab Take 1 tablet by mouth every 6 hours as needed (dizziness). levothyroxine (LEVOXYL) 100 mcg tablet Take 1 tablet PO 5 days a week in AM and take 2 tablets PO 2 days a week. Take on empty stomach. For Thyroid fluticasone-salmeterol (ADVAIR DISKUS) 100-50 mcg/dose inhaler Inhale 1 Puff as instructed twice daily. Rinse mouth out after use with water. hydroCHLOROthiazide (HYDRODIURIL, ESIDRIX) 12.5 mg tablet Take 1 tablet by mouth once daily. lisinopril (ZESTRIL, PRINIVIL) 20 mg tablet Take 1 tablet by mouth twice daily. atenolol (TENORMIN) 25 mg tablet Take 1 tablet by mouth once daily. amLODIPine (NORVASC) 10 mg tablet Take 1 tablet by mouth once daily. cetirizine (ZYRTEC) 10 mg tablet Take 1 tablet by mouth once daily. meloxicam (MOBIC) 7.5 mg tablet Take 1 tablet by mouth once daily. for pain. Take with food. psyllium Husk 0.52 gram capsule Take 0.52 g by mouth once daily. docosahexaenoic acid/epa (FISH OIL ORAL) Take by mouth once daily. ergocalciferol, vitamin D2, (VITAMIN D2 ORAL) Take by mouth once daily. DAILY MULTI-VITAMIN ORAL Take by mouth once daily. OTC PRODUCT Takes 1 spoonful of beet powder couple days a week aspirin, enteric coated 81 mg EC tablet Take 81 mg by mouth once daily. gabapentin (NEURONTIN) 400 mg capsule Take 1 capsule by mouth three times daily for 30 days. albuterol HFA (VENTOLIN HFA) 90 mcg/actuation inhaler Inhale 2 Puffs as instructed every 4 hours as needed for wheezing/shortness of breath. Current Facility-Administered Medications Medication Dose Route Frequency perflutren lipid microspheres 1.3 mL in NaCl (PF) 0.9% 10 mL injection (DEFINITY) INTRAVENOUS DIRECTED PRN sodium chloride 0.9 % (flush) 10 mL (BD POSIFLUSH) 10 mL INTRAVENOUS DIRECTED PRN sodium chloride 0.9 % (flush) 10 mL (BD POSIFLUSH) 10 mL INTRAVENOUS DIRECTED PRN Allergies: Lipitor [Atorvastatin] This note was partially generated using [employer] voice recognition system, and there may be some incorrect words, spellings, and punctuation that were not noted in checking the note before saving. Seble Zepeda PA-C Patient presents with: Left Knee - Established Patient, Knee Pain: Xrays taken today Right Knee - Established Patient, Knee Pain: Xrays taken today Patient reports pain that returned about 2 months ago. He reports previous injections that gave him relief. He is also seeing pain management for his back and feet. AMB ROOMING INTAKE FLOWSHEET DATA Pain Pain Level: 6 Pain Location: Knee-Left (knee right) Description: Dull, Radiating Duration Amount of Time: 2 Duration Units: Months Frequency: Continuous Intervention/Comfort measure: Medication Comments: voltaren gel documented in this encounter [facility] 04-11-2023 Miscellaneous Notes Patient notified and verbalized understanding Yashira Galvez Cma Please let patient know his echo is stable. documented in this encounter [facility] 04-11-2023 Note HNO ID: [id number] Author: Delia Chu RN Service: ? Author Type: Registered Nurse Type: Progress Notes Filed: 04/11/2023 12:23 PM Note Text: 24 ga angio started to right AC. Good blood return. Flushed easily with NSS. Dressing applied. Definity (Lot # [id number] exp 01/11/24 ) mixed per protocol. 2 cc administered throughout procedure. 8 cc discarded. Pt tolerated procedure well. No C/o's, Hep lock D/c'd and dressing applied. Patient discharged ambulatory with Machine Washer. Delia Chu RN [facility] 04-11-2023 History of Present illness Narrative 24 ga angio started to right AC. Good blood return. Flushed easily with NSS. Dressing applied. Definity (Lot # [id number] exp 01/11/24 ) mixed per protocol. 2 cc administered throughout procedure. 8 cc discarded. Pt tolerated procedure well. No C/o's, Hep lock D/c'd and dressing applied. Patient discharged ambulatory with Machine Washer. Delia Chu RN documented in this encounter [facility] 04-05-2023 Note HNO ID: [id number] Author: Denisse Eller RN Service: ? Author Type: Registered Nurse Type: Progress Notes Filed: 04/05/2023 12:06 PM Note Text: CDM Telephonic Outreach Provider Action/FYI Same foot issues remain. Appt for pain management in three days Contacted for: Routine Telephonic Outreach Contact made with patient: Yes Patient identified by name and date of . Discussed care with patient Are you experiencing any new or worsening symptoms you need to talk about today? No Disease Specific Do you check your blood pressure at home? No Do you have new or worsening shortness of breath with activity? No Do you have new or worsening cough? No Do you have new or worsening wheezing? No Do you need to use your rescue (Albuterol) inhaler or nebulizer more often than normal? No Based on glove turner and former automatic, the following disposition is advised: No symptoms or symptoms present, not severe. Routed to: No Action Needed NEISHA Education Provided this Outreach: No Denisse Eller RN April 05, 2023 12:05 PM [facility] 04-05-2023 Note Patient Outreach ([facility] GEORGE LEWIS ([id number]) 1940 M Date Time Provider Department 04/05/23 DENISSE ELLER During your visit today, we recorded the following information about you: Denisse Eller RN 04/05/2023 12:06 PM Signed CDM Telephonic Outreach Provider Action/FYI Same foot issues remain. Appt for pain management in three days Contacted for: Routine Telephonic Outreach Contact made with patient: Yes Patient identified by name and date of . Discussed care with patient Are you experiencing any new or worsening symptoms you need to talk about today? No Disease Specific Do you check your blood pressure at home? No Do you have new or worsening shortness of breath with activity? No Do you have new or worsening cough? No Do you have new or worsening wheezing? No Do you need to use your rescue (Albuterol) inhaler or nebulizer more often than normal? No Based on glove turner and former automatic, the following disposition is advised: No symptoms or symptoms present, not severe. Routed to: No Action Needed NEISHA Education Provided this Outreach: No Denisse Eller RN April 05, 2023 12:05 PM Allergies As of Date: 04/05/2023 Noted Allergy Reaction LIPITOR (ATORVASTATIN) 08/16/2007 5 - Intolerance Comments: Severe leg cramps, stopped Date Reviewed: 03/31/2023 Reviewed by: Yashira Galvez Cma - Fully Assessed Reason for Visit: cdm [Other] Cmt: Check in call Prescriptions as of 04/05/2023 - furosemide (LASIX) 20 mg tablet Take 1 tablet by mouth once daily. - naproxen sodium (ALEVE) 220 mg cap Take by mouth once daily. - gabapentin (NEURONTIN) 400 mg capsule Take 1 capsule by mouth three times daily for 30 days. - tamsulosin (FLOMAX) 0.4 mg Take 1 capsule by mouth twice daily. - nitroglycerin sublingual (NITROQUICK) 0.4 mg SL tablet Dissolve 1 tablet under the tongue as needed. for chest pain,every 5 min x3 - rosuvastatin (CRESTOR) 10 mg tablet Take 1 tablet by mouth once daily. - albuterol HFA (VENTOLIN HFA) 90 mcg/actuation inhaler Inhale 2 Puffs as instructed every 4 hours as needed for wheezing/shortness of breath. - meclizine (ANTIVERT) 25 mg tab Take 1 tablet by mouth every 6 hours as needed (dizziness). - levothyroxine (LEVOXYL) 100 mcg tablet Take 1 tablet PO 5 days a week in AM and take 2 tablets PO 2 days a week. Take on empty stomach. For Thyroid - fluticasone-salmeterol (ADVAIR DISKUS) 100-50 mcg/dose inhaler Inhale 1 Puff as instructed twice daily. Rinse mouth out after use with water. - hydroCHLOROthiazide (HYDRODIURIL, ESIDRIX) 12.5 mg tablet Take 1 tablet by mouth once daily. - lisinopril (ZESTRIL, PRINIVIL) 20 mg tablet Take 1 tablet by mouth twice daily. - atenolol (TENORMIN) 25 mg tablet Take 1 tablet by mouth once daily. - amLODIPine (NORVASC) 10 mg tablet Take 1 tablet by mouth once daily. - cetirizine (ZYRTEC) 10 mg tablet Take 1 tablet by mouth once daily. - meloxicam (MOBIC) 7.5 mg tablet Take 1 tablet by mouth once daily. for pain. Take with food. - psyllium Husk 0.52 gram capsule Take 0.52 g by mouth once daily. - docosahexaenoic acid/epa (FISH OIL ORAL) Take by mouth once daily. - ergocalciferol, vitamin D2, (VITAMIN D2 ORAL) Take by mouth once daily. - DAILY MULTI-VITAMIN ORAL Take by mouth once daily. - OTC PRODUCT Takes 1 spoonful of beet powder couple days a week - aspirin, enteric coated 81 mg EC tablet Take 81 mg by mouth once daily. Facility-Administered Medications as of 04/05/2023 - perflutren lipid microspheres 1.3 mL in NaCl (PF) 0.9% 10 mL injection (DEFINITY) - sodium chloride 0.9 % (flush) 10 mL (BD POSIFLUSH) - sodium chloride 0.9 % (flush) 10 mL (BD POSIFLUSH) Meds Comments as of 10/15/2015: Clairitin daily Problem List As Of Date 04/05/2023 Noted Resolved Essential hypertension [I10] Coronary atherosclerosis of unspecified type of* 04/19/2019 Obesity, unspecified [E66.9] 03/30/2017 HEARING LOSS NOS [H91.90] FAMILY HX GI MALIGNANCY [Z80.0] 08/16/2007 LOC PRIM OSTEOART-L/LEG [M17.10] 08/19/2007 Chronic obstructive pulmonary disease (HCC) [J4*08/19/2007 BENIGN NEOPLASM LG BOWEL [D12.6] 02/01/2008 Hyperlipidemia LDL goal <70 [E78.5] 02/16/2008 Gynecomastia [N62] 07/20/2012 Shoulder pain, right [M25.511] 08/09/2012 Abnormal stress test [R94.39] 07/01/2014 Hx of CABG [Z95.1] 07/01/2014 PVC's (premature ventricular contractions) [I49*07/01/2014 Pain in joint, shoulder region [M25.519] 02/10/2015 Complete tear of right rotator cuff [M75.121] 09/02/2015 Obesity (BMI 30.0-34.9) [E66.9] 03/30/2017 10/20/2018 Coronary artery disease involving igiugig lau*10/18/2017 Obesity, Class I, BMI 30-34.9 [E66.9] 10/18/2017 Dizziness [R42] 12/19/2017 Elevated fasting glucose [R73.01] 12/19/2017 Allergic rhinitis due to allergen [J30.9] 12/19/2017 PAD (peripheral artery disease) ([facility]) [I73.9 (more content not included)... [facility] 03-31-2023 Note HNO ID: [id number] Author: Harvinder Verde APRN.PRECIPITATOR OPERATOR Service: ? Author Type: Nurse Practitioner Type: Progress Notes Filed: 03/31/2023 10:13 AM Note Text: Chief Complaint Patient presents with: Follow Up: Leg swelling MEMO Lewis is a 82 year old male who presents here today for Above Complaints.. Patient presents for follow up for leg swelling. Patient was started on lasix which has improved his leg swelling and patient reports his abdomen is not as distended as well. Past medical history, appointments, medications, allergies reviewed. 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 Murray PAST SURGICAL HISTORY OF 1980 Bilateral shoulder surgery post trauma Family History FAMILY HISTORY Problem Relation Age of Onset Colon Cancer Mother before age 60 (pt unsure) Coronary Artery Disease Father of presumed CA; heavy drinker Alcohol/Drug Father Prostate Cancer Other none Diabetes Other none Patient Allergies ALLERGIES Allergen Reactions Lipitor [Atorvastat* Intolerance Severe leg cramps, stopped Current Medications Current Outpatient Medications on File Prior to Visit Medication Sig furosemide (LASIX) 20 mg tablet Take 1 tablet by mouth once daily. naproxen sodium (ALEVE) 220 mg cap Take by mouth once daily. gabapentin (NEURONTIN) 400 mg capsule Take 1 capsule by mouth three times daily for 30 days. tamsulosin (FLOMAX) 0.4 mg Take 1 capsule by mouth twice daily. nitroglycerin sublingual (NITROQUICK) 0.4 mg SL tablet Dissolve 1 tablet under the tongue as needed. for chest pain,every 5 min x3 rosuvastatin (CRESTOR) 10 mg tablet Take 1 tablet by mouth once daily. albuterol HFA (VENTOLIN HFA) 90 mcg/actuation inhaler Inhale 2 Puffs as instructed every 4 hours as needed for wheezing/shortness of breath. meclizine (ANTIVERT) 25 mg tab Take 1 tablet by mouth every 6 hours as needed (dizziness). levothyroxine (LEVOXYL) 100 mcg tablet Take 1 tablet PO 5 days a week in AM and take 2 tablets PO 2 days a week. Take on empty stomach. For Thyroid fluticasone-salmeterol (ADVAIR DISKUS) 100-50 mcg/dose inhaler Inhale 1 Puff as instructed twice daily. Rinse mouth out after use with water. hydroCHLOROthiazide (HYDRODIURIL, ESIDRIX) 12.5 mg tablet Take 1 tablet by mouth once daily. lisinopril (ZESTRIL, PRINIVIL) 20 mg tablet Take 1 tablet by mouth twice daily. atenolol (TENORMIN) 25 mg tablet Take 1 tablet by mouth once daily. amLODIPine (NORVASC) 10 mg tablet Take 1 tablet by mouth once daily. cetirizine (ZYRTEC) 10 mg tablet Take 1 tablet by mouth once daily. meloxicam (MOBIC) 7.5 mg tablet Take 1 tablet by mouth once daily. for pain. Take with food. psyllium Husk 0.52 gram capsule Take 0.52 g by mouth once daily. docosahexaenoic acid/epa (FISH OIL ORAL) Take by mouth once daily. ergocalciferol, vitamin D2, (VITAMIN D2 ORAL) Take by mouth once daily. DAILY MULTI-VITAMIN ORAL Take by mouth once daily. OTC PRODUCT Takes 1 spoonful of beet powder couple days a week aspirin, enteric coated 81 mg EC tablet Take 81 mg by mouth once daily. Current Facility-Administered Medications on File Prior to Visit Medication perflutren lipid microspheres 1.3 mL in NaCl (PF) 0.9% 10 mL injection (DEFINITY) sodium chloride 0.9 % (flush) 10 mL (BD POSIFLUSH) sodium chloride 0.9 % (flush) 10 mL (BD POSIFLUSH) Social History Social History Tobacco Use Smoking status: Former Types: Cigarettes Quit date: 09/12/1989 Years since quittin.5 Smokeless tobacco: Never Vaping Use Vaping Use: Never used Substance Use Topics Alcohol use: No Drug use: No Review of Symptoms REVIEW OF SYSTEMS SEE HPI EXAM: BP 122/60 Pulse 60 Resp 16 Wt 111.6 kg (246 lb) BMI 35.30 kg/m? General Appearance: Well appearing, alert, in no acute distress, well-hydrated, well nourished.. Lungs: Lungs clear to auscultation. No wheezing, rhonchi, rales.. Heart: RRR without murmur, gallop, or rubs. No ectopy. Peripheral Pulses: Normal. Health Maintenance List DTAP,TDAP,TD(1 - Tdap) due on 02/01/2013 SHINGRIX VACCINE(2 of 3) due on 03/11/2014 COVID-19 VACCINE(7 - Pfizer series) due on 11/18/2022 INFLUENZA(1) due on (more content not included)... [facility] 03-25-2023 Miscellaneous Notes Patient notified and verbalized understanding Yashira Galvez Cma Prescription sent. Patient calls and states that his leg swelling went down considerably when taking furosemide. Patient had lost 9 pound of fluid weight. Patient had started feeling better. Patient states that he feels like he is filling up again with fluid since completing lasix prescription. Patient asking if provider can send in new prescription for lasix. Patient has ECHO scheduled for 03/28/2023. Patient scheduled a follow up appointment with Harvinder to go over results on 03/31/2023. Please review and advise, Annie Inman RN documented in this encounter [facility] 03-21-2023 Miscellaneous Notes TC to patient who verbalized understanding of providers message. Patient wants provider to know that the medication she prescribed at 03/18/23 OV helped the swelling and he lost 6 lbs total. No longer having issues with swelling of his legs and ankles. ARMIDA Sparks Please let patient know his labs are stable documented in this encounter [facility] 03-18-2023 Note HNO ID: [id number] Author: Harvinder Verde APRN.CNP Service: ? Author Type: Nurse Practitioner Type: Progress Notes Filed: 03/18/2023 10:29 AM Note Text: Chief Complaint Patient presents with: Edema: Swelling- both legs HPI George Lewis is a 82 year old male who presents here today for Above Complaints.. Patient presents with new onset bilateral lower leg swelling. Patient has a history of CAD and HTN. Patient reports swelling started about 5 days ago and it is worse in the morning. Patient also reports soreness in his bilateral legs. Patient has known PAD with abnormal PVR's. Past medical history, appointments, medications, allergies reviewed. 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 Murray PAST SURGICAL HISTORY OF 1980 Bilateral shoulder surgery post trauma Family History FAMILY HISTORY Problem Relation Age of Onset Colon Cancer Mother before age 60 (pt unsure) Coronary Artery Disease Father of presumed CA; heavy drinker Alcohol/Drug Father Prostate Cancer Other none Diabetes Other none Patient Allergies ALLERGIES Allergen Reactions Lipitor [Atorvastat* Intolerance Severe leg cramps, stopped Current Medications Current Outpatient Medications on File Prior to Visit Medication Sig naproxen sodium (ALEVE) 220 mg cap Take by mouth once daily. gabapentin (NEURONTIN) 400 mg capsule Take 1 capsule by mouth three times daily for 30 days. tamsulosin (FLOMAX) 0.4 mg Take 1 capsule by mouth twice daily. nitroglycerin sublingual (NITROQUICK) 0.4 mg SL tablet Dissolve 1 tablet under the tongue as needed. for chest pain,every 5 min x3 rosuvastatin (CRESTOR) 10 mg tablet Take 1 tablet by mouth once daily. albuterol HFA (VENTOLIN HFA) 90 mcg/actuation inhaler Inhale 2 Puffs as instructed every 4 hours as needed for wheezing/shortness of breath. meclizine (ANTIVERT) 25 mg tab Take 1 tablet by mouth every 6 hours as needed (dizziness). levothyroxine (LEVOXYL) 100 mcg tablet Take 1 tablet PO 5 days a week in AM and take 2 tablets PO 2 days a week. Take on empty stomach. For Thyroid fluticasone-salmeterol (ADVAIR DISKUS) 100-50 mcg/dose inhaler Inhale 1 Puff as instructed twice daily. Rinse mouth out after use with water. hydroCHLOROthiazide (HYDRODIURIL, ESIDRIX) 12.5 mg tablet Take 1 tablet by mouth once daily. lisinopril (ZESTRIL, PRINIVIL) 20 mg tablet Take 1 tablet by mouth twice daily. atenolol (TENORMIN) 25 mg tablet Take 1 tablet by mouth once daily. amLODIPine (NORVASC) 10 mg tablet Take 1 tablet by mouth once daily. cetirizine (ZYRTEC) 10 mg tablet Take 1 tablet by mouth once daily. meloxicam (MOBIC) 7.5 mg tablet Take 1 tablet by mouth once daily. for pain. Take with food. psyllium Husk 0.52 gram capsule Take 0.52 g by mouth once daily. docosahexaenoic acid/epa (FISH OIL ORAL) Take by mouth once daily. ergocalciferol, vitamin D2, (VITAMIN D2 ORAL) Take by mouth once daily. DAILY MULTI-VITAMIN ORAL Take by mouth once daily. OTC PRODUCT Takes 1 spoonful of beet powder couple days a week aspirin, enteric coated 81 mg EC tablet Take 81 mg by mouth once daily. Current Facility-Administered Medications on File Prior to Visit Medication perflutren lipid microspheres 1.3 mL in NaCl (PF) 0.9% 10 mL injection (DEFINITY) sodium chloride 0.9 % (flush) 10 mL (BD POSIFLUSH) Social History Social History Tobacco Use Smoking status: Former Types: Cigarettes Quit date: 09/12/1989 Years since quittin.5 Smokeless tobacco: Never Vaping Use Vaping Use: Never used Substance Use Topics Alcohol use: No Drug use: No Review of Symptoms REVIEW OF SYSTEMS SEE HPI EXAM: BP 112/66 Pulse 60 Resp 16 Wt 112 kg (247 lb) SpO2 95% BMI 35.44 kg/m? General Appearance: Well appearing, alert, in no acute distress, well-hydrated, well nourished.. Lungs: Lungs clear to auscultation. No wheezing, rhonchi, rales.. Heart: RRR without murmur, gallop, or rubs. No ectopy. Extremities: Pulses: 2+, Edema: 1+ pitting edema to bilateral lower extremities. Peripheral Pulses: Pulses palpable 2+. Health Maintenance List DTAP,TDAP,TD(1 - Tdap) due on 02/01/2013 SHINGRIX VACCINE(2 of 3) due o (more content not included)... [facility] 03-18-2023 Note HNO ID: [id number] Author: Salome Nicole, DO Service: ? Author Type: Physician Type: Progress Notes Filed: 03/18/2023 9:02 AM Note Text: Virtualist Progress Note Triage Call I have communicated my name and active licensure. The patient's identity and physical location were verified at the time of this visit. Either the patient or their legal manufacturer representative has been informed of the risks and benefits of -- and alternatives to -- treatment through a remote evaluation and consents to proceed with the evaluation remotely. Triage source: [facility] Was patient downgraded (i.e. disposition other than go to the ED was advised)? Yes Mode of contact: Audio only, NOC History/Physical Exam: New bilateral LE edema. No chest pain or SOB Nurse Triage Disposition (If call is from Home Care, [facility] nurse triage, or an [facility] Care, the disposition is Go to ED Now ): H@H 24 hour recommendation Virtualist Recommended Disposition: See Provider within 24 hours Signed in as Primary Virtualist, Secondary Virtualist, or [facility] Telehealth provider: Secondary [facility] 03-18-2023 Instructions Harvinder Verde APRN.RAFAEL - 03/18/2023 10:29 AM EDT Complete lab work Schedule echo documented in this encounter [facility] 03-18-2023 History of Present illness Narrative Chief Complaint Patient presents with: Edema: Swelling- both legs HPI George Lewis is a 82 year old male who presents here today for Above Complaints.. Patient presents with new onset bilateral lower leg swelling. Patient has a history of CAD and HTN. Patient reports swelling started about 5 days ago and it is worse in the morning. Patient also reports soreness in his bilateral legs. Patient has known PAD with abnormal PVR's. Past medical history, appointments, medications, allergies reviewed. 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 Murray PAST SURGICAL HISTORY OF 1980 Bilateral shoulder surgery post trauma Family History FAMILY HISTORY Problem Relation Age of Onset Colon Cancer Mother before age 60 (pt unsure) Coronary Artery Disease Father of presumed CA; heavy drinker Alcohol/Drug Father Prostate Cancer Other none Diabetes Other none Patient Allergies ALLERGIES Allergen Reactions Lipitor [Atorvastat* Intolerance Severe leg cramps, stopped Current Medications Current Outpatient Medications on File Prior to Visit Medication Sig naproxen sodium (ALEVE) 220 mg cap Take by mouth once daily. gabapentin (NEURONTIN) 400 mg capsule Take 1 capsule by mouth three times daily for 30 days. tamsulosin (FLOMAX) 0.4 mg Take 1 capsule by mouth twice daily. nitroglycerin sublingual (NITROQUICK) 0.4 mg SL tablet Dissolve 1 tablet under the tongue as needed. for chest pain,every 5 min x3 rosuvastatin (CRESTOR) 10 mg tablet Take 1 tablet by mouth once daily. albuterol HFA (VENTOLIN HFA) 90 mcg/actuation inhaler Inhale 2 Puffs as instructed every 4 hours as needed for wheezing/shortness of breath. meclizine (ANTIVERT) 25 mg tab Take 1 tablet by mouth every 6 hours as needed (dizziness). levothyroxine (LEVOXYL) 100 mcg tablet Take 1 tablet PO 5 days a week in AM and take 2 tablets PO 2 days a week. Take on empty stomach. For Thyroid fluticasone-salmeterol (ADVAIR DISKUS) 100-50 mcg/dose inhaler Inhale 1 Puff as instructed twice daily. Rinse mouth out after use with water. hydroCHLOROthiazide (HYDRODIURIL, ESIDRIX) 12.5 mg tablet Take 1 tablet by mouth once daily. lisinopril (ZESTRIL, PRINIVIL) 20 mg tablet Take 1 tablet by mouth twice daily. atenolol (TENORMIN) 25 mg tablet Take 1 tablet by mouth once daily. amLODIPine (NORVASC) 10 mg tablet Take 1 tablet by mouth once daily. cetirizine (ZYRTEC) 10 mg tablet Take 1 tablet by mouth once daily. meloxicam (MOBIC) 7.5 mg tablet Take 1 tablet by mouth once daily. for pain. Take with food. psyllium Husk 0.52 gram capsule Take 0.52 g by mouth once daily. docosahexaenoic acid/epa (FISH OIL ORAL) Take by mouth once daily. ergocalciferol, vitamin D2, (VITAMIN D2 ORAL) Take by mouth once daily. DAILY MULTI-VITAMIN ORAL Take by mouth once daily. OTC PRODUCT Takes 1 spoonful of beet powder couple days a week aspirin, enteric coated 81 mg EC tablet Take 81 mg by mouth once daily. Current Facility-Administered Medications on File Prior to Visit Medication perflutren lipid microspheres 1.3 mL in NaCl (PF) 0.9% 10 mL injection (DEFINITY) sodium chloride 0.9 % (flush) 10 mL (BD POSIFLUSH) Social History Social History Tobacco Use Smoking status: Former Types: Cigarettes Quit date: 09/12/1989 Years since quittin.5 Smokeless tobacco: Never Vaping Use Vaping Use: Never used Substance Use Topics Alcohol use: No Drug use: No Review of Symptoms REVIEW OF SYSTEMS SEE HPI EXAM: BP 112/66 Pulse 60 Resp 16 Wt 112 kg (247 lb) SpO2 95% BMI 35.44 kg/m General Appearance: Well appearing, alert, in no acute distress, well-hydrated, well nourished.. Lungs: Lungs clear to auscultation. No wheezing, rhonchi, rales.. Heart: RRR without murmur, gallop, or rubs. No ectopy. Extremities: Pulses: 2+, Edema: 1+ pitting edema to bilateral lower extremities. Peripheral Pulses: Pulses palpable 2+. Health Maintenance List DTAP,TDAP,TD(1 - Tdap) due on 02/01/2013 SHINGRIX VACCINE(2 of 3) due on 03/11/2014 INFLUENZA(1) due on 05/13/2023 LDL CHOLESTEROL due on 07/21/2023 DIABETES SCREEN due on 01/21/2026 SPIROMETRY Completed DEPRESSION ASSESSMENT Completed COVID-19 VACCINE Completed PNEUMOCOCCAL: 65+ Completed ADVANCE DIRECTIVE DISCUSSION Discontinued ASSESSMENT/PLAN: 1. Localized swelling of both lower legs - ICD9: 729.81, ICD10: R22.43 (primary diagnosis) - COMP METABOLIC PANEL - NT PRO BNP - HIGH SENSITIVITY TROPONIN T - ECG COMPLETE - ECHO - PERFLUTREN LIPID MICROSPHERES 1.1 MG/ML INJECTION IN NS 10 ML - SODIUM CHLORIDE 0.9 % (FLUSH) INJECTION SYRINGE - FUROSEMIDE 20 MG TABLET - TSH BLD 2. SOB (shortness of breath) - ICD9: 786.05, ICD10: R06.02 - ECHO - PERFLUTREN LIPID MICROSPHERES 1.1 MG/ML INJECTION IN NS 10 ML - SODIUM CHLORIDE 0.9 % (FLUSH) INJECTION SYRINGE Harvinder Verde APRN.PRECIPITATOR OPERATOR documented in this encounter [facility] 03-18-2023 History of Present illness Narrative Virtualist Progress Note Triage Call I have communicated my name and active licensure. The patient's identity and physical location were verified at the time of this visit. Either the patient or their legal manufacturer representative has been informed of the risks and benefits of -- and alternatives to -- treatment through a remote evaluation and consents to proceed with the evaluation remotely. Triage source: [facility] Was patient downgraded (i.e. disposition other than go to the ED was advised)? Yes Mode of contact: Audio only, NOC History/Physical Exam: New bilateral LE edema. No chest pain or SOB Nurse Triage Disposition (If call is from [facility], [facility] nurse triage, or an Express Care, the disposition is Go to ED Now ): H@H 24 hour recommendation Virtualist Recommended Disposition: See Provider within 24 hours Signed in as Primary Virtualist, Secondary Virtualist, or [facility] Telehealth provider: Secondary documented in this encounter [facility] 03-18-2023 Miscellaneous Notes [facility] Provider Action/FYI: Patient calling to request his order a water pill for him for swelling of the lower extremities Charly, you've reached [facility], my name is Trini Stover RN, I'm a registered nurse, and we are on a recorded line. Patient identified by name and date of Spoke with patient Verify that the patient is a [facility] patient: Yes Are you having any symptoms today? Yes - Go to [facility] Protocol Symptoms present: bilateral swelling of the lower extremities from below the knee to the ankles. R>L Based on what you've told me, I do recommend that you: Managed by H@H RN and patient spoke to Dr. Nicole and recommended patient be seen by PCP within 24 Hrs 1 Reason for call: Swelling of the lower extremities from below the knee to the ankle bilaterally Outcome: Conferenced to Jose M in [facility] to schedule an appointment with the PCP to be seen within 24Hrs Do you understand my recommendations? (After patient verifies understanding) If you develop any new symptoms, your condition worsens, then GO TO THE EMERGENCY ROOM OR CALL 911. If you have any questions, please call us back. Thank you for calling [facility]. If you develop any new symptoms, your condition worsens, then GO TO THE EMERGENCY ROOM OR CALL 911. If you have any questions, please call us back. Reason for Disposition [1] MODERATE leg swelling (e.g., swelling extends up to knees) AND [2] new-onset or worsening Answer Assessment - Initial Assessment Questions 1. ONSET: in AM 2. LOCATION: yes, bilateral leg swollen from below the knee to ankle. right is greater than the left 3. SEVERITY: moderate amt. with pitting edema 4. REDNESS: no 5. PAIN: no 6. FEVER: no 7. CAUSE: does not know 8. MEDICAL HISTORY: no 9. RECURRENT SYMPTOM: yes, years ago, stopped drinking a lot of water and swelling went away 10. OTHER SYMPTOMS: no 11. : n/a No change in medications in the last month Protocols used: Leg Swelling and [id number] documented in this encounter [facility] 03-08-2023 Note HNO ID: [id number] Author: Mena Machuca DO Service: ? Author Type: Physician Type: Progress Notes Filed: 03/08/2023 4:51 PM Note Text: This office note has been dictated. Mena Machuca DO [facility] 03-08-2023 History of Present illness Narrative This office note has been dictated. Mena Machuca DO documented in this encounter [facility] 03-08-2023 Note HNO ID: [id number] Author: Mena Machuca DO Service: Vascular Surgery Author Type: Physician Type: Progress Notes Filed: 03/14/2023 8:58 AM Note Text: NAME: GEORGE LEWIS [facility] NO: [id number] DATE OF SERVICE: 03/08/2023 Subjective: George is here to follow up on peripheral arterial disease and carotid artery stenosis. Denies any focal neurologic deficit. His biggest concern is he has short distance lifestyle-limiting claudication. He says approximately 60 feet prior to the onset of claudication. If he stops and rests for a couple of minutes, he is okay to continue on. Denies any tissue loss. He also is very concerned, as he has gained 5 pounds recently without any change in diet. He denies any shortness of breath or trouble breathing. He does say his abdomen is more full than normal. He does take hydrochlorothiazide. Denies lower extremity edema. Objective: His vital signs are stable. He is in no distress. He is alert and oriented. He has no focal neurologic deficit. He does have carotid bruit on the left. He has nonpalpable distal pulses. No edema. His abdomen is nontender, slightly distended. Reviewed his vascular testing. His PVRs are stable. He has mild disease bilaterally at rest. His right RIAN is 0.72; his left RIAN is 0.72. On his carotid duplex, he has right 40-59% stenosis; his lefty is 60-79%. His vertebrals are antegrade, however, he does have a slight increase in the peak systolic velocity. Assessment/Plan: 1. Carotid artery disease. 2. Peripheral arterial disease. Reviewed the findings with George. Recommend that he does do more walking. We will have him go back to walking in the store regularly, as he has taken time off of that because his legs have been hurting him. We will get a carotid duplex. He is following up with pain management for a spine injection, which he says did help his legs and his walking distance for a short period of time, however, it was a smaller dose. Recommend that he continue with pain management as well. We will touch base with this PCP and nitrating acid mixer regarding his weight gain, as he finds it difficult to use the phone system. He will call me and follow up sooner with any new concerns. Mena Machuca D.O. KB/[id number] Audio #: [id number] Date Dictated: 03/08/2023 12:23:40 Date Typed: 03/11/2023 05:02:57 Date Revised: [facility] 03-08-2023 Note Patient Outreach ([facility]) GEORGE LEWIS ([id number]) 1940 M Date Time Provider Department 03/08/23 DENISSE ELLER During your visit today, we recorded the following information about you: Denisse Eller RN 03/08/2023 9:55 AM Signed CDM Telephonic Outreach Provider Vilma/JUDY Copd; burning and tingling remainin his legs and feet. He has seen a spine doctor and plans to go to a workers compensation coordinator. Contacted for: Routine Telephonic Outreach Contact made with patient: Yes Patient identified by name and date of . Discussed care with patient Are you experiencing any new or worsening symptoms you need to talk about today? No Disease Specific Do you check your blood pressure at home? No Do you have new or worsening shortness of breath with activity? No Do you have new or worsening cough? No Do you have new or worsening wheezing? No Do you need to use your rescue (Albuterol) inhaler or nebulizer more often than normal? No Based on glove turner and former automatic, the following disposition is advised: No symptoms or symptoms present, not severe. Routed to: No Action Needed NEISHA Education Provided this Outreach: No Denisse Eller RN March 08, 2023 9:54 AM Allergies As of Date: 03/08/2023 Noted Allergy Reaction LIPITOR (ATORVASTATIN) 08/16/2007 5 - Intolerance Comments: Severe leg cramps, stopped Date Reviewed: 01/05/2023 Reviewed by: Stu James APRN.PRECIPITATOR OPERATOR - Fully Assessed Prescriptions as of 03/08/2023 - gabapentin (NEURONTIN) 400 mg capsule Take 1 capsule by mouth three times daily for 30 days. - tamsulosin (FLOMAX) 0.4 mg Take 1 capsule by mouth twice daily. - nitroglycerin sublingual (NITROQUICK) 0.4 mg SL tablet Dissolve 1 tablet under the tongue as needed. for chest pain,every 5 min x3 - rosuvastatin (CRESTOR) 10 mg tablet Take 1 tablet by mouth once daily. - albuterol HFA (VENTOLIN HFA) 90 mcg/actuation inhaler Inhale 2 Puffs as instructed every 4 hours as needed for wheezing/shortness of breath. - meclizine (ANTIVERT) 25 mg tab Take 1 tablet by mouth every 6 hours as needed (dizziness). - levothyroxine (LEVOXYL) 100 mcg tablet Take 1 tablet PO 5 days a week in AM and take 2 tablets PO 2 days a week. Take on empty stomach. For Thyroid - fluticasone-salmeterol (ADVAIR DISKUS) 100-50 mcg/dose inhaler Inhale 1 Puff as instructed twice daily. Rinse mouth out after use with water. - hydroCHLOROthiazide (HYDRODIURIL, ESIDRIX) 12.5 mg tablet Take 1 tablet by mouth once daily. - lisinopril (ZESTRIL, PRINIVIL) 20 mg tablet Take 1 tablet by mouth twice daily. - atenolol (TENORMIN) 25 mg tablet Take 1 tablet by mouth once daily. - amLODIPine (NORVASC) 10 mg tablet Take 1 tablet by mouth once daily. - cetirizine (ZYRTEC) 10 mg tablet Take 1 tablet by mouth once daily. - meloxicam (MOBIC) 7.5 mg tablet Take 1 tablet by mouth once daily. for pain. Take with food. - psyllium Husk 0.52 gram capsule Take 0.52 g by mouth once daily. - docosahexaenoic acid/epa (FISH OIL ORAL) Take by mouth once daily. - ergocalciferol, vitamin D2, (VITAMIN D2 ORAL) Take by mouth once daily. - DAILY MULTI-VITAMIN ORAL Take by mouth once daily. - OTC PRODUCT Takes 1 spoonful of beet powder couple days a week - aspirin, enteric coated 81 mg EC tablet Take 81 mg by mouth once daily. Facility-Administered Medications as of 03/08/2023 - perflutren lipid microspheres 1.3 mL in NaCl (PF) 0.9% 10 mL injection (DEFINITY) - sodium chloride 0.9 % (flush) 10 mL (BD POSIFLUSH) Meds Comments as of 10/15/2015: Clairitin daily Problem List As Of Date 03/08/2023 Noted Resolved Essential hypertension [I10] Coronary atherosclerosis of unspecified type of* 04/19/2019 Obesity, unspecified [E66.9] 03/30/2017 HEARING LOSS NOS [H91.90] FAMILY HX GI MALIGNANCY [Z80.0] 08/16/2007 LOC PRIM OSTEOART-L/LEG [M17.10] 08/19/2007 Chronic obstructive pulmonary disease (HCC) [J4*08/19/2007 BENIGN NEOPLASM LG BOWEL [D12.6] 02/01/2008 Hyperlipidemia LDL goal <70 [E78.5] 02/16/2008 Gynecomastia [N62] 07/20/2012 Shoulder pain, right [M25.511] 08/09/2012 Abnormal stress test [R94.39] 07/01/2014 Hx of CABG [Z95.1] 07/01/2014 PVC's (premature ventricular contractions) [I49*07/01/2014 Pain in joint, shoulder region [M25.519] 02/10/2015 Complete tear of right rotator cuff [M75.121] 09/02/2015 Obesity (BMI 30.0-34.9) [E66.9] 03/30/2017 10/20/2018 Coronary artery disease involving igiugig lau*10/18/2017 Obesity, Class I, BMI 30-34.9 [E66.9] 10/18/2017 Dizziness [R42] 12/19/2017 Elevated fasting glucose [R73.01] 12/19/2017 Allergic rhinitis due to allergen [J30.9] 12/19/2017 PAD (peripheral artery disease) (HCC) [I73.9] 03/16/2019 Pure hypercholesterolemia [E78.00] 04/20/2019 10/25/2022 Chronic pain of both knees [M25.561, M25.562, G*04/20/2019 Pain of right lower extremity [M79.604] 10/23/2019 Ghazal (more content not included)... [facility] 03-08-2023 Note HNO ID: [id number] Author: Denisse Eller RN Service: ? Author Type: Registered Nurse Type: Progress Notes Filed: 03/08/2023 9:55 AM Note Text: CDM Telephonic Outreach Provider Action/FYI Copd; burning and tingling remainin his legs and feet. He has seen a spine doctor and plans to go to a workers compensation coordinator. Contacted for: Routine Telephonic Outreach Contact made with patient: Yes Patient identified by name and date of . Discussed care with patient Are you experiencing any new or worsening symptoms you need to talk about today? No Disease Specific Do you check your blood pressure at home? No Do you have new or worsening shortness of breath with activity? No Do you have new or worsening cough? No Do you have new or worsening wheezing? No Do you need to use your rescue (Albuterol) inhaler or nebulizer more often than normal? No Based on glove turner and former automatic, the following disposition is advised: No symptoms or symptoms present, not severe. Routed to: No Action Needed NEISHA Education Provided this Outreach: No Denisse Eller RN March 08, 2023 9:54 AM [facility] 03-08-2023 History of Present illness Narrative [facility] Telephonic Outreach Provider Vilma/MARKYI Copd; burning and tingling remainin his legs and feet. He has seen a spine doctor and plans to go to a workers compensation coordinator. Contacted for: Routine Telephonic Outreach Contact made with patient: Yes Patient identified by name and date of . Discussed care with patient Are you experiencing any new or worsening symptoms you need to talk about today? No Disease Specific Do you check your blood pressure at home? No Do you have new or worsening shortness of breath with activity? No Do you have new or worsening cough? No Do you have new or worsening wheezing? No Do you need to use your rescue (Albuterol) inhaler or nebulizer more often than normal? No Based on glove turner and former automatic, the following disposition is advised: No symptoms or symptoms present, not severe. Routed to: No Action Needed NEISHA Education Provided this Outreach: No Denises Eller RN March 08, 2023 9:54 AM documented in this encounter [facility] 02-25-2023 Miscellaneous Notes Opened in error documented in this encounter [facility] 02-09-2023 Note Patient Outreach ([facility] GEORGE LEWIS ([id number]) 1940 M Date Time Provider Department 02/09/23 HUMBERTO WANG During your visit today, we recorded the following information about you: Humberto Wang RN 02/09/2023 2:05 PM Signed CDM Telephonic Outreach Provider Action/FYI 2nd TO attempt Spoke with patient who reports that hsifeoma is feeling well except for burning and tingling in his legs and feet. He has seen a spine doctor and plans to go to a workers compensation coordinator. He is able to walk but only short distances. No falls. No transportation or food insecurity needs found from asking [facility] questions. Goals entered and ADL and fall risk assessments completed. Asthma H@H Contacted for: Routine Telephonic Outreach Contact made with patient: Yes Patient identified by name and date of . Discussed care with patient Are you experiencing any new or worsening symptoms you need to talk about today? No Disease Specific Do you check your blood pressure at home? No Do you have new or worsening shortness of breath with activity? No Do you have new or worsening cough? No Do you have new or worsening wheezing? No Do you need to use your rescue (Albuterol) inhaler or nebulizer more often than normal? No Based on glove turner and former automatic, the following disposition is advised: No symptoms or symptoms present, not severe. Routed to: No Action Needed NEISHA Education Provided this Outreach: No Humberto Wang RN February 09, 2023 2:05 PM Allergies As of Date: 02/09/2023 Noted Allergy Reaction LIPITOR (ATORVASTATIN) 08/16/2007 5 - Intolerance Comments: Severe leg cramps, stopped Date Reviewed: 01/05/2023 Reviewed by: Stu James APRN.PRECIPITATOR OPERATOR - Fully Assessed Reason for Visit: CDM [Other] Cmt: Telephonic outreach Prescriptions as of 02/11/2023 - gabapentin (NEURONTIN) 400 mg capsule Take 1 capsule by mouth three times daily for 30 days. - tamsulosin (FLOMAX) 0.4 mg Take 1 capsule by mouth twice daily. - nitroglycerin sublingual (NITROQUICK) 0.4 mg SL tablet Dissolve 1 tablet under the tongue as needed. for chest pain,every 5 min x3 - rosuvastatin (CRESTOR) 10 mg tablet Take 1 tablet by mouth once daily. - albuterol HFA (VENTOLIN HFA) 90 mcg/actuation inhaler Inhale 2 Puffs as instructed every 4 hours as needed for wheezing/shortness of breath. - meclizine (ANTIVERT) 25 mg tab Take 1 tablet by mouth every 6 hours as needed (dizziness). - levothyroxine (LEVOXYL) 100 mcg tablet Take 1 tablet PO 5 days a week in AM and take 2 tablets PO 2 days a week. Take on empty stomach. For Thyroid - fluticasone-salmeterol (ADVAIR DISKUS) 100-50 mcg/dose inhaler Inhale 1 Puff as instructed twice daily. Rinse mouth out after use with water. - hydroCHLOROthiazide (HYDRODIURIL, ESIDRIX) 12.5 mg tablet Take 1 tablet by mouth once daily. - lisinopril (ZESTRIL, PRINIVIL) 20 mg tablet Take 1 tablet by mouth twice daily. - atenolol (TENORMIN) 25 mg tablet Take 1 tablet by mouth once daily. - amLODIPine (NORVASC) 10 mg tablet Take 1 tablet by mouth once daily. - cetirizine (ZYRTEC) 10 mg tablet Take 1 tablet by mouth once daily. - meloxicam (MOBIC) 7.5 mg tablet Take 1 tablet by mouth once daily. for pain. Take with food. - psyllium Husk 0.52 gram capsule Take 0.52 g by mouth once daily. - docosahexaenoic acid/epa (FISH OIL ORAL) Take by mouth once daily. - ergocalciferol, vitamin D2, (VITAMIN D2 ORAL) Take by mouth once daily. - DAILY MULTI-VITAMIN ORAL Take by mouth once daily. - OTC PRODUCT Takes 1 spoonful of beet powder couple days a week - aspirin, enteric coated 81 mg EC tablet Take 81 mg by mouth once daily. Facility-Administered Medications as of 02/11/2023 - perflutren lipid microspheres 1.3 mL in NaCl (PF) 0.9% 10 mL injection (DEFINITY) - sodium chloride 0.9 % (flush) 10 mL (BD POSIFLUSH) Meds Comments as of 10/15/2015: Clairitin daily Problem List As Of Date 02/09/2023 Noted Resolved Essential hypertension [I10] Coronary atherosclerosis of unspecified type of* 04/19/2019 Obesity, unspecified [E66.9] 03/30/2017 HEARING LOSS NOS [H91.90] FAMILY HX GI MALIGNANCY [Z80.0] 08/16/2007 LOC PRIM OSTEOART-L/LEG [M17.10] 08/19/2007 Chronic obstructive pulmonary disease (HCC) [J4*08/19/2007 BENIGN NEOPLASM LG BOWEL [D12.6] 02/01/2008 Hyperlipidemia LDL goal <70 [E78.5] 02/16/2008 Gynecomastia [N62] 07/20/2012 Shoulder pain, right [M25.511] 08/09/2012 Abnormal stress test [R94.39] 07/01/2014 Hx of CABG [Z95.1] 07/01/2014 PVC's (premature ventricular contractions) [I49*07/01/2014 Pain in joint, shoulder region [M25.519] 02/10/2015 Complete tear of right rotator cuff [M75.121] 09/02/2015 Obesity (BMI 30.0-34.9) [E66.9] 03/30/2017 10/20/2018 Coronary artery disease involving igiugig lau*10/18/2017 Obesity, Class I, BMI 30-34.9 [E66.9] 10/18/2017 Dizzines (more content not included)... [facility] 02-09-2023 Note HNO ID: [id number] Author: Humberto Wang RN Service: ? Author Type: Registered Nurse Type: Progress Notes Filed: 02/09/2023 2:05 PM Note Text: CDM Telephonic Outreach Provider Action/I 2nd TO attempt Spoke with patient who reports that hse is feeling well except for burning and tingling in his legs and feet. He has seen a spine doctor and plans to go to a workers compensation coordinator. He is able to walk but only short distances. No falls. No transportation or food insecurity needs found from asking [facility] questions. Goals entered and ADL and fall risk assessments completed. Asthma H@H Contacted for: Routine Telephonic Outreach Contact made with patient: Yes Patient identified by name and date of . Discussed care with patient Are you experiencing any new or worsening symptoms you need to talk about today? No Disease Specific Do you check your blood pressure at home? No Do you have new or worsening shortness of breath with activity? No Do you have new or worsening cough? No Do you have new or worsening wheezing? No Do you need to use your rescue (Albuterol) inhaler or nebulizer more often than normal? No Based on glove turner and former automatic, the following disposition is advised: No symptoms or symptoms present, not severe. Routed to: No Action Needed NEISHA Education Provided this Outreach: No Humberto Wang RN February 09, 2023 2:05 PM [facility] 02-09-2023 History of Present illness Narrative [facility] Telephonic Outreach Provider Action/FYI 2nd TO attempt Spoke with patient who reports that hse is feeling well except for burning and tingling in his legs and feet. He has seen a spine doctor and plans to go to a workers compensation coordinator. He is able to walk but only short distances. No falls. No transportation or food insecurity needs found from asking [facility] questions. Goals entered and ADL and fall risk assessments completed. Asthma H@H Contacted for: Routine Telephonic Outreach Contact made with patient: Yes Patient identified by name and date of . Discussed care with patient Are you experiencing any new or worsening symptoms you need to talk about today? No Disease Specific Do you check your blood pressure at home? No Do you have new or worsening shortness of breath with activity? No Do you have new or worsening cough? No Do you have new or worsening wheezing? No Do you need to use your rescue (Albuterol) inhaler or nebulizer more often than normal? No Based on glove turner and former automatic, the following disposition is advised: No symptoms or symptoms present, not severe. Routed to: No Action Needed NEISHA Education Provided this Outreach: No Humberto Wang RN February 09, 2023 2:05 PM documented in this encounter [facility] 02-08-2023 Note Patient Outreach (AM [facility]) GEORGE LEWIS ([id number]) 1940 M Date Time Provider Department 02/08/23 HUMBERTO WANG During your visit today, we recorded the following information about you: Humberto Wang RN 02/08/2023 1:14 PM Signed CDM Telephonic Outreach Provider Vilma/JUDY Left Asthma H@H Appointments for Next 60 Days Date Time Provider Location Dept Phone 03/08/2023 2:30 PM MENA MACHUCA [phone] Contacted for: Routine Telephonic Outreach Contact made with patient: No, left message. Humberto Wang RN February 08, 2023 1:14 PM Allergies As of Date: 02/08/2023 Noted Allergy Reaction LIPITOR (ATORVASTATIN) 08/16/2007 5 - Intolerance Comments: Severe leg cramps, stopped Date Reviewed: 01/05/2023 Reviewed by: Stu James APRN.PRECIPITATOR OPERATOR - Fully Assessed Reason for Visit: CDM [Other] Cmt: Telephonic outreach Prescriptions as of 02/08/2023 - gabapentin (NEURONTIN) 400 mg capsule Take 1 capsule by mouth three times daily for 30 days. - tamsulosin (FLOMAX) 0.4 mg Take 1 capsule by mouth twice daily. - nitroglycerin sublingual (NITROQUICK) 0.4 mg SL tablet Dissolve 1 tablet under the tongue as needed. for chest pain,every 5 min x3 - rosuvastatin (CRESTOR) 10 mg tablet Take 1 tablet by mouth once daily. - albuterol HFA (VENTOLIN HFA) 90 mcg/actuation inhaler Inhale 2 Puffs as instructed every 4 hours as needed for wheezing/shortness of breath. - meclizine (ANTIVERT) 25 mg tab Take 1 tablet by mouth every 6 hours as needed (dizziness). - levothyroxine (LEVOXYL) 100 mcg tablet Take 1 tablet PO 5 days a week in AM and take 2 tablets PO 2 days a week. Take on empty stomach. For Thyroid - fluticasone-salmeterol (ADVAIR DISKUS) 100-50 mcg/dose inhaler Inhale 1 Puff as instructed twice daily. Rinse mouth out after use with water. - hydroCHLOROthiazide (HYDRODIURIL, ESIDRIX) 12.5 mg tablet Take 1 tablet by mouth once daily. - lisinopril (ZESTRIL, PRINIVIL) 20 mg tablet Take 1 tablet by mouth twice daily. - atenolol (TENORMIN) 25 mg tablet Take 1 tablet by mouth once daily. - amLODIPine (NORVASC) 10 mg tablet Take 1 tablet by mouth once daily. - cetirizine (ZYRTEC) 10 mg tablet Take 1 tablet by mouth once daily. - meloxicam (MOBIC) 7.5 mg tablet Take 1 tablet by mouth once daily. for pain. Take with food. - psyllium Husk 0.52 gram capsule Take 0.52 g by mouth once daily. - docosahexaenoic acid/epa (FISH OIL ORAL) Take by mouth once daily. - ergocalciferol, vitamin D2, (VITAMIN D2 ORAL) Take by mouth once daily. - DAILY MULTI-VITAMIN ORAL Take by mouth once daily. - OTC PRODUCT Takes 1 spoonful of beet powder couple days a week - aspirin, enteric coated 81 mg EC tablet Take 81 mg by mouth once daily. Facility-Administered Medications as of 02/08/2023 - perflutren lipid microspheres 1.3 mL in NaCl (PF) 0.9% 10 mL injection (DEFINITY) - sodium chloride 0.9 % (flush) 10 mL (BD POSIFLUSH) Meds Comments as of 10/15/2015: Clairitin daily Problem List As Of Date 02/08/2023 Noted Resolved Essential hypertension [I10] Coronary atherosclerosis of unspecified type of* 04/19/2019 Obesity, unspecified [E66.9] 03/30/2017 HEARING LOSS NOS [H91.90] FAMILY HX GI MALIGNANCY [Z80.0] 08/16/2007 LOC PRIM OSTEOART-L/LEG [M17.10] 08/19/2007 Chronic obstructive pulmonary disease (HCC) [J4*08/19/2007 BENIGN NEOPLASM LG BOWEL [D12.6] 02/01/2008 Hyperlipidemia LDL goal <70 [E78.5] 02/16/2008 Gynecomastia [N62] 07/20/2012 Shoulder pain, right [M25.511] 08/09/2012 Abnormal stress test [R94.39] 07/01/2014 Hx of CABG [Z95.1] 07/01/2014 PVC's (premature ventricular contractions) [I49*07/01/2014 Pain in joint, shoulder region [M25.519] 02/10/2015 Complete tear of right rotator cuff [M75.121] 09/02/2015 Obesity (BMI 30.0-34.9) [E66.9] 03/30/2017 10/20/2018 Coronary artery disease involving igiugig lau*10/18/2017 Obesity, Class I, BMI 30-34.9 [E66.9] 10/18/2017 Dizziness [R42] 12/19/2017 Elevated fasting glucose [R73.01] 12/19/2017 Allergic rhinitis due to allergen [J30.9] 12/19/2017 PAD (peripheral artery disease) (HCC) [I73.9] 03/16/2019 Pure hypercholesterolemia [E78.00] 04/20/2019 10/25/2022 Chronic pain of both knees [M25.561, M25.562, G*04/20/2019 Pain of right lower extremity [M79.604] 10/23/2019 Benign nodular prostatic hyperplasia without lo*01/20/2021 Actinic keratosis [L57.0] 01/20/2021 Lumbar stenosis with neurogenic claudication [M*04/09/2021 Weight gain [R63.5] 07/21/2021 Vitamin D deficiency [E55.9] 07/21/2021 IFG (impaired fasting glucose) [R73.01] 07/21/2021 Hypothyroidism [E03.9] 10/19/2021 SOB (shortness of breath) [R06.02] 02/01/2022 Moderate persistent asthma, uncomplicated [J45.*04/14/2022 Restrictive airway disease [J98.4] 04/14/2022 Hereditary and idiopathic peripheral neuropathy* (more content not included)... [facility] 02-08-2023 Note HNO ID: [id number] Author: Humberto Wang RN Service: ? Author Type: Registered Nurse Type: Progress Notes Filed: 02/08/2023 1:14 PM Note Text: CDM Telephonic Outreach Provider Action/FYI Left VM Asthma H@H Appointments for Next 60 Days Date Time Provider Location Dept Phone 03/08/2023 2:30 PM MENA MACHUCA [facility] [phone] Contacted for: Routine Telephonic Outreach Contact made with patient: No, left message. Humberto Wang RN February 08, 2023 1:14 PM [facility] 02-08-2023 History of Present illness Narrative CDM Telephonic Outreach Provider Vilma/JUDY Left VM Asthma H@H Appointments for Next 60 Days Date Time Provider Location Dept Phone 03/08/2023 2:30 PM MENA MACHUCA [facility] [phone] Contacted for: Routine Telephonic Outreach Contact made with patient: No, left message. Humberto Wang RN February 08, 2023 1:14 PM documented in this encounter [facility] 01-24-2023 Miscellaneous Notes Mr. Lewis denies any new or worsening symptoms of which a provider is not aware: He said he went to pain management today at [facility] and they were asking if he was on a blood thinner and he wasn't sure if any of his meds were. He read this nurse his meds which I reviewed in his Epic chart. He is going to let them know the meds he is on. documented in this encounter [facility] 01-21-2023 Note HNO ID: [id number] Author: Husam Deras, DO Service: ? Author Type: Physician Type: Progress Notes Filed: 01/21/2023 9:40 AM Note Text: CC: George Lewis is a 82 year old male who presents to the office for follow up HPI: Diagnosed with PAD, has carotid artery atherosclerosis, is going to be seeing Dr. Machuca Vascular specialist upcoming. Struggling with walking due to b/l below the knee pain that only improves with rest. Isn't getting as much exercise as he should and he knows this. IFG, diet controlled. Knows need for weight loss. Has cut out most of his sugar in his diet. HTN, well controlled, denies any CP or dyspnea or Dizziness or LH No new urinary symptoms Bowel function is normal. No blood in stool PAST MEDICAL HISTORY Diagnosis Date Benign neoplasm of colon 02/01/2008 Coronary atherosclerosis of unspecified type of vessel, igiugig or graft 09/12/1999 s/p CABG 1999, first he knew of CAD IFG (impaired fasting glucose) 11/2020 Obesity, unspecified Unspecified essential hypertension 09/12/1999 on BP meds since bypass Unspecified hearing loss mild/moderate, both ears; PAST SURGICAL HISTORY Procedure Laterality Date COLONOSCOPY FLX DX W/COLLJ SPEC WHEN PFRMD 02/07/2014 Colonoscopy COLONOSCOPY FLX DX W/COLLJ SPEC WHEN PFRMD 03/07/2019 Colonoscopy COLONOSCOPY W/BIOPSY SINGLE/MULTIPLE 02/01/08 HEMORRHOIDECTOMY XTRNL 2/> COLUMN/GROUP 1989 hemorrhoidectomy PAST SURGICAL HISTORY OF 1999 CABG x 3, [facility], Dr. Murray PAST SURGICAL HISTORY OF 1980 Bilateral shoulder surgery post trauma Social History: Social History Tobacco Use Smoking status: Former Types: Cigarettes Quit date: 09/12/1989 Years since quittin.3 Smokeless tobacco: Never Vaping Use Vaping Use: Never used Substance Use Topics Alcohol use: No Drug use: No FAMILY HISTORY Problem Relation Age of Onset Colon Cancer Mother before age 60 (pt unsure) Coronary Artery Disease Father of presumed CA; heavy drinker Alcohol/Drug Father Prostate Cancer Other none Diabetes Other none Current Outpatient prescriptions: tamsulosin (FLOMAX) 0.4 mgTake 1 capsule by mouth twice daily.Disp: 180 capsuleRfl: 3 nitroglycerin sublingual (NITROQUICK) 0.4 mg SL tabletDissolve 1 tablet under the tongue as needed. for chest pain,every 5 min x3Disp: 25 tabletRfl: 1 rosuvastatin (CRESTOR) 10 mg tabletTake 1 tablet by mouth once daily.Disp: 30 tabletRfl: 11 albuterol HFA (VENTOLIN HFA) 90 mcg/actuation inhalerInhale 2 Puffs as instructed every 4 hours as needed for wheezing/shortness of breath.Disp: 36 gRfl: 3 meclizine (ANTIVERT) 25 mg tabTake 1 tablet by mouth every 6 hours as needed (dizziness).Disp: 20 tabletRfl: 6 levothyroxine (LEVOXYL) 100 mcg tabletTake 1 tablet PO 5 days a week in AM and take 2 tablets PO 2 days a week. Take on empty stomach. For ThyroidDisp: 114 tabletRfl: 3 fluticasone-salmeterol (ADVAIR DISKUS) 100-50 mcg/dose inhalerInhale 1 Puff as instructed twice daily. Rinse mouth out after use with water.Disp: 180 EachRfl: 1 hydroCHLOROthiazide (HYDRODIURIL, ESIDRIX) 12.5 mg tabletTake 1 tablet by mouth once daily.Disp: 90 tabletRfl: 3 lisinopril (ZESTRIL, PRINIVIL) 20 mg tabletTake 1 tablet by mouth twice daily.Disp: 180 tabletRfl: 3 atenolol (TENORMIN) 25 mg tabletTake 1 tablet by mouth once daily.Disp: 30 tabletRfl: 11 amLODIPine (NORVASC) 10 mg tabletTake 1 tablet by mouth once daily.Disp: 90 tabletRfl: 1 cetirizine (ZYRTEC) 10 mg tabletTake 1 tablet by mouth once daily.Disp: 30 tabletRfl: 5 meloxicam (MOBIC) 7.5 mg tabletTake 1 tablet by mouth once daily. for pain. Take with food.Disp: 30 tabletRfl: 1 psyllium Husk 0.52 gram capsuleTake 0.52 g by mouth once daily.Disp: Rfl: docosahexaenoic acid/epa (FISH OIL ORAL)Take by mouth once daily.Disp: Rfl: ergocalciferol, vitamin D2, (VITAMIN D2 ORAL)Take by mouth once daily. Disp: Rfl: DAILY MULTI-VITAMIN ORALTake by mouth once daily.Disp: Rfl: OTC PRODUCTTakes 1 spoonful of beet powder couple days a week Disp: Rfl: aspirin, enteric coated 81 mg EC tabletTake 81 mg by mouth once daily.Disp: Rfl: gabapentin (NEURONTIN) 400 mg capsuleTake 1 capsule by mouth three times daily for 30 days.Disp: 270 capsuleRfl: 1 Allergies: ALLERGIES Allergen Reactions Lipitor [Atorvastat* Intolerance Severe leg cramps, stopped ROS See HPI PE: 01/21/23 0836 BP: 130/60 Pulse: 64 Resp: 24 Temp: (!) 35.8 ?C (96.5 ?F) TempSrc: Left Tympanic Weight: 109.3 kg (241 lb) Gen: AANDO, NAD, non-toxic appearing, Pleasant, cooperative HEENT: NT/AC, PERRLA, EOMs intact b/l, nares clear and patent b/l, pharynx without erythema, exudate or lesions. Uvula midline. MMM Neck: supple, No cervical LAD, no thyromegaly, + left carotid bruit CV: RRR, normal S1 and S2, no murmurs, no gallops, no rubs, Pulses 2+ and symmetric in UE Lungs: normal respiratory effort, CTA b/l, no wheezing or r (more content not included)... [facility] 01-21-2023 History of Present illness Narrative CC: George Lewis is a 82 year old male who presents to the office for follow up HPI: Diagnosed with PAD, has carotid artery atherosclerosis, is going to be seeing Dr. Machuca Vascular specialist upcoming. Struggling with walking due to b/l below the knee pain that only improves with rest. Isn't getting as much exercise as he should and he knows this. IFG, diet controlled. Knows need for weight loss. Has cut out most of his sugar in his diet. HTN, well controlled, denies any CP or dyspnea or Dizziness or LH No new urinary symptoms Bowel function is normal. No blood in stool PAST MEDICAL HISTORY Diagnosis Date Benign neoplasm of colon 02/01/2008 Coronary atherosclerosis of unspecified type of vessel, igiugig or graft 09/12/1999 s/p CABG 1999, first he knew of CAD IFG (impaired fasting glucose) 11/2020 Obesity, unspecified Unspecified essential hypertension 09/12/1999 on BP meds since bypass Unspecified hearing loss mild/moderate, both ears; PAST SURGICAL HISTORY Procedure Laterality Date COLONOSCOPY FLX DX W/COLLJ SPEC WHEN PFRMD 02/07/2014 Colonoscopy COLONOSCOPY FLX DX W/COLLJ SPEC WHEN PFRMD 03/07/2019 Colonoscopy COLONOSCOPY W/BIOPSY SINGLE/MULTIPLE 02/01/08 HEMORRHOIDECTOMY XTRNL 2/> COLUMN/GROUP 1989 hemorrhoidectomy PAST SURGICAL HISTORY OF 1999 CABG x 3, [facility], Dr. Murray PAST SURGICAL HISTORY OF 1980 Bilateral shoulder surgery post trauma Social History: Social History Tobacco Use Smoking status: Former Types: Cigarettes Quit date: 09/12/1989 Years since quittin.3 Smokeless tobacco: Never Vaping Use Vaping Use: Never used Substance Use Topics Alcohol use: No Drug use: No FAMILY HISTORY Problem Relation Age of Onset Colon Cancer Mother before age 60 (pt unsure) Coronary Artery Disease Father of presumed CA; heavy drinker Alcohol/Drug Father Prostate Cancer Other none Diabetes Other none Current Outpatient prescriptions: tamsulosin (FLOMAX) 0.4 mg^Take 1 capsule by mouth twice daily.^Disp: 180 capsule^Rfl: 3 nitroglycerin sublingual (NITROQUICK) 0.4 mg SL tablet^Dissolve 1 tablet under the tongue as needed. for chest pain,every 5 min x3^Disp: 25 tablet^Rfl: 1 rosuvastatin (CRESTOR) 10 mg tablet^Take 1 tablet by mouth once daily.^Disp: 30 tablet^Rfl: 11 albuterol HFA (VENTOLIN HFA) 90 mcg/actuation inhaler^Inhale 2 Puffs as instructed every 4 hours as needed for wheezing/shortness of breath.^Disp: 36 g^Rfl: 3 meclizine (ANTIVERT) 25 mg tab^Take 1 tablet by mouth every 6 hours as needed (dizziness).^Disp: 20 tablet^Rfl: 6 levothyroxine (LEVOXYL) 100 mcg tablet^Take 1 tablet PO 5 days a week in AM and take 2 tablets PO 2 days a week. Take on empty stomach. For Thyroid^Disp: 114 tablet^Rfl: 3 fluticasone-salmeterol (ADVAIR DISKUS) 100-50 mcg/dose inhaler^Inhale 1 Puff as instructed twice daily. Rinse mouth out after use with water.^Disp: 180 Each^Rfl: 1 hydroCHLOROthiazide (HYDRODIURIL, ESIDRIX) 12.5 mg tablet^Take 1 tablet by mouth once daily.^Disp: 90 tablet^Rfl: 3 lisinopril (ZESTRIL, PRINIVIL) 20 mg tablet^Take 1 tablet by mouth twice daily.^Disp: 180 tablet^Rfl: 3 atenolol (TENORMIN) 25 mg tablet^Take 1 tablet by mouth once daily.^Disp: 30 tablet^Rfl: 11 amLODIPine (NORVASC) 10 mg tablet^Take 1 tablet by mouth once daily.^Disp: 90 tablet^Rfl: 1 cetirizine (ZYRTEC) 10 mg tablet^Take 1 tablet by mouth once daily.^Disp: 30 tablet^Rfl: 5 meloxicam (MOBIC) 7.5 mg tablet^Take 1 tablet by mouth once daily. for pain. Take with food.^Disp: 30 tablet^Rfl: 1 psyllium Husk 0.52 gram capsule^Take 0.52 g by mouth once daily.^Disp: ^Rfl: docosahexaenoic acid/epa (FISH OIL ORAL)^Take by mouth once daily.^Disp: ^Rfl: ergocalciferol, vitamin D2, (VITAMIN D2 ORAL)^Take by mouth once daily. ^Disp: ^Rfl: DAILY MULTI-VITAMIN ORAL^Take by mouth once daily.^Disp: ^Rfl: OTC PRODUCT^Takes 1 spoonful of beet powder couple days a week ^Disp: ^Rfl: aspirin, enteric coated 81 mg EC tablet^Take 81 mg by mouth once daily.^Disp: ^Rfl: gabapentin (NEURONTIN) 400 mg capsule^Take 1 capsule by mouth three times daily for 30 days.^Disp: 270 capsule^Rfl: 1 Allergies: ALLERGIES Allergen Reactions Lipitor [Atorvastat* Intolerance Severe leg cramps, stopped ROS See HPI PE: 01/21/23 0836 BP: 130/60 Pulse: 64 Resp: 24 Temp: (!) 35.8 C (96.5 F) TempSrc: Left Tympanic Weight: 109.3 kg (241 lb) Gen: A&O, NAD, non-toxic appearing, Pleasant, cooperative HEENT: NT/AC, PERRLA, EOMs intact b/l, nares clear and patent b/l, pharynx without erythema, exudate or lesions. Uvula midline. MMM Neck: supple, No cervical LAD, no thyromegaly, + left carotid bruit CV: RRR, normal S1 and S2, no murmurs, no gallops, no rubs, Pulses 2+ and symmetric in UE Lungs: normal respiratory effort, CTA b/l, no wheezing or rhonchi or rales Abd: soft, obese, NT, ND, +BS, no hepatosplenomegaly MS: FROM all 4 extremities Neuro: CN II-XII intact b/l, strength 5/5 b/l UE and LE, DTRs 2/4 UE and LE, sensation intact. Skin: warm, dry, intact, No rashes or lesions on exposed skin. Trace ankle edema b/l present Slightly diminished dorsalis pedis and post tibial pulses b/l ASSESSMENT/PLAN: 1. Hereditary and idiopathic peripheral neuropathy - ICD9: 356.9, ICD10: G60.9 (primary diagnosis) Continue same medications, need for better exercise 2. PAD (peripheral artery disease) (HCC) - ICD9: 443.9, ICD10: I73.9 See above, need for increased exercisee, f/u with Vascular specialist as scheduled for opinion. 3. Hypothyroidism, unspecified type - ICD9: 244.9, ICD10: E03.9 - Instructed patient on importance of taking on an empty stomach either first thing in the morning or at bedtime. Stable - Behavioral intervention, - Eat well program, and - Continue current medications 4. Essential hypertension - ICD9: 401.9, ICD10: I10 - good control - Continue current medication(s) - Encouraged dietary sodium restriction/DASH diet - Recommended regular aerobic exercise. - Recommend home blood pressure monitoring, to bring results in on next visit - Discussed need and benefit for weight loss. - Goal of BP <130/80 5. Mixed hyperlipidemia - ICD9: 272.2, ICD10: E78.2 - to be determined upon return of lab results - Continue current medication. - Encouraged following a low fat, low cholesterol diet. - Discussed the benefits of regular aerobic exercise and weight loss. - Check fasting lipid panel - COMP METABOLIC PANEL - CBC + DIFF 6. Screening for prostate cancer - ICD9: V76.44, ICD10: Z12.5 - Counseled on healthy diet and regular exercise - PSA/PROSTSPECAG SCRN 7. Benign nodular prostatic hyperplasia without lower urinary tract symptoms - ICD9: 600.10, ICD10: N40.0 stable 8. Chronic obstructive pulmonary disease, unspecified COPD type (HCC) - ICD9: 496, ICD10: J44.9 stable 9. IFG (impaired fasting glucose) - ICD9: 790.21, ICD10: R73.01 - stable Husam Deras DO To ER if develops chest pain, shortness of breath, or severe worsening of symptoms. Discussed risks, benefits, alternatives, and potential side effects of medications. Patient expressed understanding and agreed with the plan. Husam Deras DO [address] [place] [address] documented in this encounter [facility] 01-11-2023 Miscellaneous Notes This note was completed on 01/06. Stu James APRN.CNP To [place] to complete Husam Deras DO Pt informed, verbalized understanding. Pt seen by RS yesterday due to his leg pain. Reports he can't sleep due to the pain. He would like to proceed with pain mgt before trying PT again. Office note form yesterday needs signed before I can fax consult to [facility]. Informed patient that provider will be back tomorrow and will complete then. Will try to continue on walking and stretching per patient. Meredith Montoya Please inform patient that his lumbar xray shows degenerative arthritis changes and disc changes. Continue need for stretches and walking and PHYSICAL THERAPY Husam Deras DO documented in this encounter [facility] 01-10-2023 Note HNO ID: [id number] Author: Nettie Gutierrez Service: ? Author Type: ? Type: Progress Notes Filed: 01/10/2023 3:46 PM Note Text: POPULATION HEALTH NAVIGATION OUTREACH Action/FYI [place] Support: Called pt to schedule an appt in Pain Management. No voicemail, unable to lvm Patient Identified by Name and : NO Outreach Outcome/Action Unable to reach patient: Phone number not valid / voicemail full Did you use a PCP flex slot to schedule this appointment? No Reason for Outreach Care Gap or Scheduling/Wellness visits Payer: Payor: IVON [employer] AND BLUE [employer] / Plan: IVON myaNUMBERGLORY HMO / Product Type: HMO / Care Gap Reviewed:: Specialty Scheduling Reminder: Reminder note to check Health Maintenance for items below Health Maintenance items due: DTAP,TDAP,TD(1 - Tdap) due on 02/01/2013 SHINGRIX VACCINE(2 of 3) due on 03/11/2014 Navigation Signature: Nettie Gutierrez January 10, 2023 3:45 PM [facility] 01-10-2023 Note Patient Outreach (NE TNAV) GEORGE LEWIS ([id number]) 1940 M Date Time Provider Department 01/10/23 NO PCP NETNAV During your visit today, we recorded the following information about you: Nettie Gutierrez 01/10/2023 3:46 PM Signed POPULATION HEALTH NAVIGATION OUTREACH Action/[facility] Support: Called pt to schedule an appt in Pain Management. No voicemail, unable to lvm Patient Identified by Name and : NO Outreach Outcome/Action Unable to reach patient: Phone number not valid / voicemail full Did you use a PCP flex slot to schedule this appointment? No Reason for Outreach Care Gap or Scheduling/Wellness visits Payer: Payor: [facility] [employer] AND [employer] [facility] / Plan: ANTHEM MEDIBLUE HMO / Product Type: HMO / Care Gap Reviewed:: Specialty Scheduling Reminder: Reminder note to check Health Maintenance for items below Health Maintenance items due: DTAP,TDAP,TD(1 - Tdap) due on 02/01/2013 SHINGRIX VACCINE(2 of 3) due on 03/11/2014 Navigation Signature: Nettie Gutierrez January 10, 2023 3:45 PM Allergies As of Date: 01/10/2023 Noted Allergy Reaction LIPITOR (ATORVASTATIN) 08/16/2007 5 - Intolerance Comments: Severe leg cramps, stopped Date Reviewed: 01/05/2023 Reviewed by: Stu James APRN.PRECIPITATOR OPERATOR - Fully Assessed Prescriptions as of 01/10/2023 - gabapentin (NEURONTIN) 400 mg capsule Take 1 capsule by mouth three times daily for 30 days. - tamsulosin (FLOMAX) 0.4 mg Take 1 capsule by mouth twice daily. - nitroglycerin sublingual (NITROQUICK) 0.4 mg SL tablet Dissolve 1 tablet under the tongue as needed. for chest pain,every 5 min x3 - rosuvastatin (CRESTOR) 10 mg tablet Take 1 tablet by mouth once daily. - albuterol HFA (VENTOLIN HFA) 90 mcg/actuation inhaler Inhale 2 Puffs as instructed every 4 hours as needed for wheezing/shortness of breath. - meclizine (ANTIVERT) 25 mg tab Take 1 tablet by mouth every 6 hours as needed (dizziness). - levothyroxine (LEVOXYL) 100 mcg tablet Take 1 tablet PO 5 days a week in AM and take 2 tablets PO 2 days a week. Take on empty stomach. For Thyroid - fluticasone-salmeterol (ADVAIR DISKUS) 100-50 mcg/dose inhaler Inhale 1 Puff as instructed twice daily. Rinse mouth out after use with water. - hydroCHLOROthiazide (HYDRODIURIL, ESIDRIX) 12.5 mg tablet Take 1 tablet by mouth once daily. - lisinopril (ZESTRIL, PRINIVIL) 20 mg tablet Take 1 tablet by mouth twice daily. - atenolol (TENORMIN) 25 mg tablet Take 1 tablet by mouth once daily. - amLODIPine (NORVASC) 10 mg tablet Take 1 tablet by mouth once daily. - cetirizine (ZYRTEC) 10 mg tablet Take 1 tablet by mouth once daily. - meloxicam (MOBIC) 7.5 mg tablet Take 1 tablet by mouth once daily. for pain. Take with food. - psyllium Husk 0.52 gram capsule Take 0.52 g by mouth once daily. - docosahexaenoic acid/epa (FISH OIL ORAL) Take by mouth once daily. - ergocalciferol, vitamin D2, (VITAMIN D2 ORAL) Take by mouth once daily. - DAILY MULTI-VITAMIN ORAL Take by mouth once daily. - OTC PRODUCT Takes 1 spoonful of beet powder couple days a week - aspirin, enteric coated 81 mg EC tablet Take 81 mg by mouth once daily. Facility-Administered Medications as of 01/10/2023 - perflutren lipid microspheres 1.3 mL in NaCl (PF) 0.9% 10 mL injection (DEFINITY) - sodium chloride 0.9 % (flush) 10 mL (BD POSIFLUSH) Meds Comments as of 10/15/2015: Clairitin daily Problem List As Of Date 01/10/2023 Noted Resolved Essential hypertension [I10] Coronary atherosclerosis of unspecified type of* 04/19/2019 Obesity, unspecified [E66.9] 03/30/2017 HEARING LOSS NOS [H91.90] FAMILY HX GI MALIGNANCY [Z80.0] 08/16/2007 LOC PRIM OSTEOART-L/LEG [M17.10] 08/19/2007 COPD (chronic obstructive pulmonary disease) (H*08/19/2007 BENIGN NEOPLASM LG BOWEL [D12.6] 02/01/2008 Hyperlipidemia LDL goal <70 [E78.5] 02/16/2008 Gynecomastia [N62] 07/20/2012 Shoulder pain, right [M25.511] 08/09/2012 Abnormal stress test [R94.39] 07/01/2014 Hx of CABG [Z95.1] 07/01/2014 PVC's (premature ventricular contractions) [I49*07/01/2014 Pain in joint, shoulder region [M25.519] 02/10/2015 Complete tear of right rotator cuff [M75.121] 09/02/2015 Obesity (BMI 30.0-34.9) [E66.9] 03/30/2017 10/20/2018 Coronary artery disease involving igiugig lau*10/18/2017 Obesity, Class I, BMI 30-34.9 [E66.9] 10/18/2017 Dizziness [R42] 12/19/2017 Elevated fasting glucose [R73.01] 12/19/2017 Allergic rhinitis due to allergen [J30.9] 12/19/2017 PAD (peripheral artery disease) (HCC) [I73.9] 03/16/2019 Pure hypercholesterolemia [E78.00] 04/20/2019 10/25/2022 Chronic pain of both knees [M25.561, M25.562, G*04/20/2019 Pain of right lower extremity [M79.604] 10/23/2019 Benign nodular prostatic hyperplasia without lo*01/20/2021 Actinic keratosis [L57.0] 01/20/2021 Lumbar stenosis with neurogenic claudication [M*04/09/ (more content not included)... [facility] 01-06-2023 Note HNO ID: [id number] Author: Priscilla Mccoy RN Service: ? Author Type: Registered Nurse Type: Progress Notes Filed: 01/06/2023 2:30 PM Note Text: CDM Telephonic Outreach Provider Action/I -copd, htn Patient states he is doing well except for his leg pain. Patient saw PCP yesterday and an order was put in for pain management.Patient denies questions/concerns/needs. Reviewed upcoming appointments. Contacted for: Routine Telephonic Outreach Contact made with patient: Yes Patient identified by name and date of . Discussed care with patient Are you experiencing any new or worsening symptoms you need to talk about today? No Disease Specific Do you check your blood pressure at home? No Do you have new or worsening shortness of breath with activity? No Do you have new or worsening cough? No Do you have new or worsening wheezing? No Do you need to use your rescue (Albuterol) inhaler or nebulizer more often than normal? No Based on glove turner and former automatic, the following disposition is advised: Symptoms present, not severe. Routed to: No Action Needed NEISHA Education Provided this Outreach: No Priscilla Mccoy RN January 06, 2023 2:27 PM [facility] 01-06-2023 History of Present illness Narrative [facility] Telephonic Outreach Provider Vilma/Kenney -copd, htn Patient states he is doing well except for his leg pain. Patient saw PCP yesterday and an order was put in for pain management.Patient denies questions/concerns/needs. Reviewed upcoming appointments. Contacted for: Routine Telephonic Outreach Contact made with patient: Yes Patient identified by name and date of . Discussed care with patient Are you experiencing any new or worsening symptoms you need to talk about today? No Disease Specific Do you check your blood pressure at home? No Do you have new or worsening shortness of breath with activity? No Do you have new or worsening cough? No Do you have new or worsening wheezing? No Do you need to use your rescue (Albuterol) inhaler or nebulizer more often than normal? No Based on glove turner and former automatic, the following disposition is advised: Symptoms present, not severe. Routed to: No Action Needed NEISHA Education Provided this Outreach: No Priscilla Mccoy RN January 06, 2023 2:27 PM documented in this encounter [facility] 01-06-2023 Note Patient Outreach (AM BC) GEORGE LEWIS ([id number]) 1940 M Date Time Provider Department 01/06/23 PRISCILLA MCCOY During your visit today, we recorded the following information about you: Priscilla Mccoy RN 01/06/2023 2:30 PM Signed CDM Telephonic Outreach Provider Action/FYI -copd, htn Patient states he is doing well except for his leg pain. Patient saw PCP yesterday and an order was put in for pain management.Patient denies questions/concerns/needs. Reviewed upcoming appointments. Contacted for: Routine Telephonic Outreach Contact made with patient: Yes Patient identified by name and date of . Discussed care with patient Are you experiencing any new or worsening symptoms you need to talk about today? No Disease Specific Do you check your blood pressure at home? No Do you have new or worsening shortness of breath with activity? No Do you have new or worsening cough? No Do you have new or worsening wheezing? No Do you need to use your rescue (Albuterol) inhaler or nebulizer more often than normal? No Based on glove turner and former automatic, the following disposition is advised: Symptoms present, not severe. Routed to: No Action Needed NEISHA Education Provided this Outreach: No Priscilla Mccoy RN January 06, 2023 2:27 PM Allergies As of Date: 01/06/2023 Noted Allergy Reaction LIPITOR (ATORVASTATIN) 08/16/2007 5 - Intolerance Comments: Severe leg cramps, stopped Date Reviewed: 01/05/2023 Reviewed by: Stu James APRN.PRECIPITATOR OPERATOR - Fully Assessed Reason for Visit: Community Monitoring Outreach [Other] Cmt: CDM follow up Prescriptions as of 01/06/2023 - gabapentin (NEURONTIN) 400 mg capsule Take 1 capsule by mouth three times daily for 30 days. - tamsulosin (FLOMAX) 0.4 mg Take 1 capsule by mouth twice daily. - nitroglycerin sublingual (NITROQUICK) 0.4 mg SL tablet Dissolve 1 tablet under the tongue as needed. for chest pain,every 5 min x3 - rosuvastatin (CRESTOR) 10 mg tablet Take 1 tablet by mouth once daily. - albuterol HFA (VENTOLIN HFA) 90 mcg/actuation inhaler Inhale 2 Puffs as instructed every 4 hours as needed for wheezing/shortness of breath. - meclizine (ANTIVERT) 25 mg tab Take 1 tablet by mouth every 6 hours as needed (dizziness). - levothyroxine (LEVOXYL) 100 mcg tablet Take 1 tablet PO 5 days a week in AM and take 2 tablets PO 2 days a week. Take on empty stomach. For Thyroid - fluticasone-salmeterol (ADVAIR DISKUS) 100-50 mcg/dose inhaler Inhale 1 Puff as instructed twice daily. Rinse mouth out after use with water. - hydroCHLOROthiazide (HYDRODIURIL, ESIDRIX) 12.5 mg tablet Take 1 tablet by mouth once daily. - lisinopril (ZESTRIL, PRINIVIL) 20 mg tablet Take 1 tablet by mouth twice daily. - atenolol (TENORMIN) 25 mg tablet Take 1 tablet by mouth once daily. - amLODIPine (NORVASC) 10 mg tablet Take 1 tablet by mouth once daily. - cetirizine (ZYRTEC) 10 mg tablet Take 1 tablet by mouth once daily. - meloxicam (MOBIC) 7.5 mg tablet Take 1 tablet by mouth once daily. for pain. Take with food. - psyllium Husk 0.52 gram capsule Take 0.52 g by mouth once daily. - docosahexaenoic acid/epa (FISH OIL ORAL) Take by mouth once daily. - ergocalciferol, vitamin D2, (VITAMIN D2 ORAL) Take by mouth once daily. - DAILY MULTI-VITAMIN ORAL Take by mouth once daily. - OTC PRODUCT Takes 1 spoonful of beet powder couple days a week - aspirin, enteric coated 81 mg EC tablet Take 81 mg by mouth once daily. Facility-Administered Medications as of 01/06/2023 - perflutren lipid microspheres 1.3 mL in NaCl (PF) 0.9% 10 mL injection (DEFINITY) - sodium chloride 0.9 % (flush) 10 mL (BD POSIFLUSH) Meds Comments as of 10/15/2015: Clairitin daily Problem List As Of Date 01/06/2023 Noted Resolved Essential hypertension [I10] Coronary atherosclerosis of unspecified type of* 04/19/2019 Obesity, unspecified [E66.9] 03/30/2017 HEARING LOSS NOS [H91.90] FAMILY HX GI MALIGNANCY [Z80.0] 08/16/2007 LOC PRIM OSTEOART-L/LEG [M17.10] 08/19/2007 COPD (chronic obstructive pulmonary disease) (H*08/19/2007 BENIGN NEOPLASM LG BOWEL [D12.6] 02/01/2008 Hyperlipidemia LDL goal <70 [E78.5] 02/16/2008 Gynecomastia [N62] 07/20/2012 Shoulder pain, right [M25.511] 08/09/2012 Abnormal stress test [R94.39] 07/01/2014 Hx of CABG [Z95.1] 07/01/2014 PVC's (premature ventricular contractions) [I49*07/01/2014 Pain in joint, shoulder region [M25.519] 02/10/2015 Complete tear of right rotator cuff [M75.121] 09/02/2015 Obesity (BMI 30.0-34.9) [E66.9] 03/30/2017 10/20/2018 Coronary artery disease involving igiugig lau*10/18/2017 Obesity, Class I, BMI 30-34.9 [E66.9] 10/18/2017 Dizziness [R42] 12/19/2017 Elevated fasting glucose [R73.01] 12/19/2017 Allergic rhinitis due to allergen [J30.9] 12/19/2017 PAD (peripheral artery disease) (HCC) [I73.9] 03/16/2019 Pure hyper (more content not included)... [facility] 01-05-2023 Note HNO ID: [id number] Author: Stu James APRN.PRECIPITATOR OPERATOR Service: ? Author Type: Nurse Practitioner Type: Progress Notes Filed: 01/07/2023 4:13 PM Note Text: Chief Complaint Patient presents with: Leg Pain: Worsening pain in Freddy legs and feet MEMO Lewis is a 82 year old male who presents here today for Above Complaints. Today: Has had pain to his legs and feet for about 4 years. During the day doesn't bother him too much-just knows it is there. At nighttime is unbearable, can't touch eachother. Wears slippers to help take the pain off at nighttime. Has been taking gabapentin. This works during the day-not sure if he actually needs it then-but not at nighttime. Tylenol helps somewhat, to get a decent night sleep. Multiple treatments in the past but nothing has helped. Has friends with same problem who have seen pain management with positive results. Is requesting consult to pain management for same. Past medical history, appointments, medications, allergies reviewed. 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 Murray PAST SURGICAL HISTORY OF 1980 Bilateral shoulder surgery post trauma Family History FAMILY HISTORY Problem Relation Age of Onset Colon Cancer Mother before age 60 (pt unsure) Coronary Artery Disease Father of presumed CA; heavy drinker Alcohol/Drug Father Prostate Cancer Other none Diabetes Other none Patient Allergies ALLERGIES Allergen Reactions Lipitor [Atorvastat* Intolerance Severe leg cramps, stopped Current Medications Current Outpatient Medications on File Prior to Visit Medication Sig gabapentin (NEURONTIN) 400 mg capsule Take 1 capsule by mouth three times daily for 30 days. tamsulosin (FLOMAX) 0.4 mg Take 1 capsule by mouth twice daily. nitroglycerin sublingual (NITROQUICK) 0.4 mg SL tablet Dissolve 1 tablet under the tongue as needed. for chest pain,every 5 min x3 rosuvastatin (CRESTOR) 10 mg tablet Take 1 tablet by mouth once daily. albuterol HFA (VENTOLIN HFA) 90 mcg/actuation inhaler Inhale 2 Puffs as instructed every 4 hours as needed for wheezing/shortness of breath. meclizine (ANTIVERT) 25 mg tab Take 1 tablet by mouth every 6 hours as needed (dizziness). levothyroxine (LEVOXYL) 100 mcg tablet Take 1 tablet PO 5 days a week in AM and take 2 tablets PO 2 days a week. Take on empty stomach. For Thyroid fluticasone-salmeterol (ADVAIR DISKUS) 100-50 mcg/dose inhaler Inhale 1 Puff as instructed twice daily. Rinse mouth out after use with water. hydroCHLOROthiazide (HYDRODIURIL, ESIDRIX) 12.5 mg tablet Take 1 tablet by mouth once daily. lisinopril (ZESTRIL, PRINIVIL) 20 mg tablet Take 1 tablet by mouth twice daily. atenolol (TENORMIN) 25 mg tablet Take 1 tablet by mouth once daily. amLODIPine (NORVASC) 10 mg tablet Take 1 tablet by mouth once daily. meloxicam (MOBIC) 7.5 mg tablet Take 1 tablet by mouth once daily. for pain. Take with food. psyllium Husk 0.52 gram capsule Take 0.52 g by mouth once daily. docosahexaenoic acid/epa (FISH OIL ORAL) Take by mouth once daily. ergocalciferol, vitamin D2, (VITAMIN D2 ORAL) Take by mouth once daily. DAILY MULTI-VITAMIN ORAL Take by mouth once daily. OTC PRODUCT Takes 1 spoonful of beet powder couple days a week aspirin, enteric coated 81 mg EC tablet Take 81 mg by mouth once daily. cetirizine (ZYRTEC) 10 mg tablet Take 1 tablet by mouth once daily. (Patient not taking: No sig reported) Current Facility-Administered Medications on File Prior to Visit Medication perflutren lipid microspheres 1.3 mL in NaCl (PF) 0.9% 10 mL injection (DEFINITY) sodium chloride 0.9 % (flush) 10 mL (BD POSIFLUSH) Social History Social History Tobacco Use Smoking status: Former Types: Cigarettes Quit date: 09/12/1989 Years since quittin.3 Smokeless tobacco: Never Vaping Use Vaping Use: Never used Substance Use Topics Alcohol use: No Drug use: No Review of Symptoms REVIEW OF SYSTEMS See HPI, otherwise negative EXAM: BP 112/56 (BP Site: Left Arm, BP Position: Sitting, BP Cuff Size: Regular Adult) Pulse 60 Resp 18 Wt 109.6 kg (241 lb 9.6 oz) SpO2 96% BMI 34.67 kg/m? General Appearance: Well ap (more content not included)... [facility] 01-04-2023 Note HNO ID: [id number] Author: RT Amilcar(R) Service: ? Author Type: Chief Accounting Officer Type: Progress Notes Filed: 01/04/2023 10:14 AM Note Text: Radiology Service Progress Note PATIENT NAME: George E Joshua DATE OF SERVICE: January 04, 2023 TIME: 10:02 AM PATIENT IDENTITY VERIFICATION COMPLETED USING TWO (2) IDENTIFIERS: Name and Date of confirmed by patient verbally. FALL SCREENING: Has the patient had 2 falls in the last year or 1 fall with injury or currently using an Ambulatory Assistive Device (Walker, Cane, Wheelchair, Crutches, etc.)? No PATIENT GENDER DATA: Male PATIENT RELEVANT IMPLANT DATA REVIEWED: Yes RADIOLOGY DEPARTMENT: General X-ray: Exam(s) Completed: Spine X-Ray(s): Lumbar AP / LAT / L5-S1 PERIPHERAL IV DATA: Not applicable SIGNED BY: RT Amilcar(R) January 04, 2023 10:02 AM [facility] 01-03-2023 Note Patient Outreach (RUBINA TNAV) GEORGE LEWIS ([id number]) 1940 Date Time Provider Department 01/03/23 KOFI LEWIS During your visit today, we recorded the following information about you: Kofi Lewis MA 01/03/2023 11:19 AM Signed POPULATION HEALTH NAVIGATION OUTREACH Action/FYI [facility] Call. Received warm transfer from Nurse : Pamela Barroso RN Patient needs : appt with Primary Care Provider office for c/o having excruciating bilateral leg pain. Patient mentioned has had the leg pain for the last 4 yrs and has notice recently pain is worsening. He has spoken with a couple of friends and they suggested that he be seen by a pain doctor. He is willing to see Dr Mckeon Certified Nurse Practitioner for evaluation in hopes to be referred to pain management as he is tired of having so much pain at night and doesn't want to continue to take pain meds as often. Health Maintenance and Care Gaps reviewed: Not for this call Scheduled appointment: yes with Certified Nurse Practitioner Stu James, 01/05/2023 at 2:20 PM. Routed to PRIMARY CARE PROVIDER: NO Route to PCC as NO. Encounter Closed. Patient Identified by Name and : YES, via phone Outreach Outcome/Action Spoke to patient / parent / legal guardian: Patient scheduled Did you use a PCP flex slot to schedule this appointment? No Reason for Outreach [facility] at Home Payer: Payor: [employer] / Plan: [facility] HMO / Product Type: HMO / Care Gap Reviewed:: N/A Reminder: Reminder note to check Health Maintenance for items below Health Maintenance items due: DTAP,TDAP,TD(1 - Tdap) due on 02/01/2013 SHINGRIX VACCINE(2 of 3) due on 03/11/2014 Navigation Signature: Kofi Lewis MA January 03, 2023 11:07 AM Allergies As of Date: 01/03/2023 Noted Allergy Reaction LIPITOR (ATORVASTATIN) 08/16/2007 5 - Intolerance Comments: Severe leg cramps, stopped Date Reviewed: 01/03/2023 Reviewed by: Pamela Barroso RN - Fully Assessed Reason for Visit: Population Health Navigation Outreach [3910] Cmt: [facility] CALL IN Prescriptions as of 01/03/2023 - gabapentin (NEURONTIN) 400 mg capsule Take 1 capsule by mouth three times daily for 30 days. - tamsulosin (FLOMAX) 0.4 mg Take 1 capsule by mouth twice daily. - nitroglycerin sublingual (NITROQUICK) 0.4 mg SL tablet Dissolve 1 tablet under the tongue as needed. for chest pain,every 5 min x3 - rosuvastatin (CRESTOR) 10 mg tablet Take 1 tablet by mouth once daily. - albuterol HFA (VENTOLIN HFA) 90 mcg/actuation inhaler Inhale 2 Puffs as instructed every 4 hours as needed for wheezing/shortness of breath. - meclizine (ANTIVERT) 25 mg tab Take 1 tablet by mouth every 6 hours as needed (dizziness). - levothyroxine (LEVOXYL) 100 mcg tablet Take 1 tablet PO 5 days a week in AM and take 2 tablets PO 2 days a week. Take on empty stomach. For Thyroid - fluticasone-salmeterol (ADVAIR DISKUS) 100-50 mcg/dose inhaler Inhale 1 Puff as instructed twice daily. Rinse mouth out after use with water. - hydroCHLOROthiazide (HYDRODIURIL, ESIDRIX) 12.5 mg tablet Take 1 tablet by mouth once daily. - lisinopril (ZESTRIL, PRINIVIL) 20 mg tablet Take 1 tablet by mouth twice daily. - atenolol (TENORMIN) 25 mg tablet Take 1 tablet by mouth once daily. - amLODIPine (NORVASC) 10 mg tablet Take 1 tablet by mouth once daily. - cetirizine (ZYRTEC) 10 mg tablet Take 1 tablet by mouth once daily. - meloxicam (MOBIC) 7.5 mg tablet Take 1 tablet by mouth once daily. for pain. Take with food. - psyllium Husk 0.52 gram capsule Take 0.52 g by mouth once daily. - docosahexaenoic acid/epa (FISH OIL ORAL) Take by mouth once daily. - ergocalciferol, vitamin D2, (VITAMIN D2 ORAL) Take by mouth once daily. - DAILY MULTI-VITAMIN ORAL Take by mouth once daily. - OTC PRODUCT Takes 1 spoonful of beet powder couple days a week - aspirin, enteric coated 81 mg EC tablet Take 81 mg by mouth once daily. Facility-Administered Medications as of 01/03/2023 - perflutren lipid microspheres 1.3 mL in NaCl (PF) 0.9% 10 mL injection (DEFINITY) - sodium chloride 0.9 % (flush) 10 mL (BD POSIFLUSH) Meds Comments as of 10/15/2015: Clairitin daily Problem List As Of Date 01/03/2023 Noted Resolved Essential hypertension [I10] Coronary atherosclerosis of unspecified type of* 04/19/2019 Obesity, unspecified [E66.9] 03/30/2017 HEARING LOSS NOS [H91.90] FAMILY HX GI MALIGNANCY [Z80.0] 08/16/2007 LOC PRIM OSTEOART-L/LEG [M17.10] 08/19/2007 COPD (chronic obstructive pulmonary disease) (H*08/19/2007 BENIGN NEOPLASM LG BOWEL [D12.6] 02/01/2008 Hyperlipidemia LDL goal <70 [E78.5] 02/16/2008 Gynecomastia [N62] 07/20/2012 Shoulder pain, right [M25.511] 08/09/2012 Abnormal stress test [R94.39] 07/01/2014 Hx of (more content not included)... [facility] 01-03-2023 Note HNO ID: [id number] Author: Kofi Lewis MA Service: ? Author Type: Manager Internship Type: Progress Notes Filed: 01/03/2023 11:19 AM Note Text: POPULATION HEALTH NAVIGATION OUTREACH Action/FYI [facility] Call. Received warm transfer from Nurse : Pamela Barroso RN Patient needs : appt with Primary Care Provider office for c/o having excruciating bilateral leg pain. Patient mentioned has had the leg pain for the last 4 yrs and has notice recently pain is worsening. He has spoken with a couple of friends and they suggested that he be seen by a pain doctor. He is willing to see Dr Mckeon Certified Nurse Practitioner for evaluation in hopes to be referred to pain management as he is tired of having so much pain at night and doesn't want to continue to take pain meds as often. Health Maintenance and Care Gaps reviewed: Not for this call Scheduled appointment: yes with Certified Nurse Practitioner Stu James, 01/05/2023 at 2:20 PM. Routed to PRIMARY CARE PROVIDER: NO Route to PCC as FYI NO. Encounter Closed. Patient Identified by Name and : YES, via phone Outreach Outcome/Action Spoke to patient / parent / legal guardian: Patient scheduled Did you use a PCP flex slot to schedule this appointment? No Reason for Outreach [facility] Payer: Payor: [employer] / Plan: [employer] HMO / Product Type: HMO / Care Gap Reviewed:: N/A Reminder: Reminder note to check Health Maintenance for items below Health Maintenance items due: DTAP,TDAP,TD(1 - Tdap) due on 02/01/2013 SHINGRIX VACCINE(2 of 3) due on 03/11/2014 Navigation Signature: Kofi Lewis MA January 03, 2023 11:07 AM [facility] 01-03-2023 History of Present illness Narrative POPULATION HEALTH NAVIGATION OUTREACH Action/FYI [facility] Call. Received warm transfer from Nurse : Pamela Barroso RN Patient needs : appt with Primary Care Provider office for c/o having excruciating bilateral leg pain. Patient mentioned has had the leg pain for the last 4 yrs and has notice recently pain is worsening. He has spoken with a couple of friends and they suggested that he be seen by a pain doctor. He is willing to see Dr Mckeon Certified Nurse Practitioner for evaluation in hopes to be referred to pain management as he is tired of having so much pain at night and doesn't want to continue to take pain meds as often. Health Maintenance and Care Gaps reviewed: Not for this call Scheduled appointment: yes with Certified Nurse Practitioner Stu James, 01/05/2023 at 2:20 PM. Routed to PRIMARY CARE PROVIDER: NO Route to PCC as FYI NO. Encounter Closed. Patient Identified by Name and : YES, via phone Outreach Outcome/Action Spoke to patient / parent / legal guardian: Patient scheduled Did you use a PCP flex slot to schedule this appointment? No Reason for Outreach [facility] Payer: Payor: [employer]IELD / Plan: [employer] HMO / Product Type: HMO / Care Gap Reviewed:: N/A Reminder: Reminder note to check Health Maintenance for items below Health Maintenance items due: DTAP,TDAP,TD(1 - Tdap) due on 02/01/2013 SHINGRIX VACCINE(2 of 3) due on 03/11/2014 Navigation Signature: Kofi Lewis MA January 03, 2023 11:07 AM documented in this encounter [facility] 01-03-2023 Miscellaneous Notes [facility] OUTREACH Provider Action/FYI: Patient c/o bilateral leg pain at night. Patient would like Pain Management referral. Conferenced to [facility] Navigator for appointment. Hello, you've reached [facility], my name is Pamela Barroso RN, I'm a registered nurse, and we are on a recorded line. Patient identified by name and date of Spoke with patient Verify that the patient is a [facility] patient: Yes Are you having any symptoms today? Yes - Go to [facility] Protocol Symptoms present: bilateral leg pain at night Based on what you've told me, I do recommend that you: Routed to Navigation Do you understand my recommendations? (After patient verifies understanding) If you develop any new symptoms, your condition worsens, then GO TO THE EMERGENCY ROOM OR CALL 911. If you have any questions, please call us back. Reason for Call: Bilateral leg pain at night Outcome: Patient was conferenced to [facility] in [facility] Navigator/Appointment Center for PCP within 24 hour scheduling. Reason for Disposition [1] MODERATE pain (e.g., interferes with normal activities, limping) AND [2] present > 3 days Nursing judgement - See PCP within 24 hours - Patient concern Answer Assessment - Initial Assessment Questions 1. ONSET: Four years ago, last 2 months taking gabapentin, only at night has pain 2. LOCATION: Below knee down to feet, both legs 3. PAIN: At night, keeping awake at night, has to sit up 4. WORK OR EXERCISE: Denies any recent overuse of legs 5. CAUSE: Pinched nerve 6. OTHER SYMPTOMS: Right sided back pain 7. : N/A Patient expresses interest in reference to Pain Management. Protocols used: Leg [id number] documented in this encounter [facility] 12-10-2022 Miscellaneous Notes Reason for Call: Pt calling to reschedule testing in vascular department. States he cannot make it on 12/17/22. Outcome: Transferred to Vascular department at [phone]. documented in this encounter [facility] 12-10-2022 Miscellaneous Notes Patient has rescheduled testing to 12-17 and follow up 12-[address] Machuca Please call patient to schedule testing prior to appt with on 12/14/22. If the testing can not be done prior patient will need to reschedule the OV as well Thank you! documented in this encounter [facility] 12-07-2022 Note Patient Outreach ([facility] GEORGE LEWIS ([id number]) 1940 M Date Time Provider Department 12/07/22 HUMBERTO WANG During your visit today, we recorded the following information about you: Humberto Wang RN 12/07/2022 12:44 PM Signed [facility] TELEPHONIC OUTREACH Provider Action/FYI: Spoke with patient who reports that he is feeling well and has no needs at this time. Wt is 229lbs which is 1 lb down from last month. Reminded pt of availability of nurse at [facility] . Reviewed upcoming appts with patient. Asthma Appointments for Next 60 Days Date Time Provider Location Dept Phone 12/14/2022 10:30 AM MENA MACHUCA [facility] [phone] 01/21/2023 8:40 AM HUSAM DERAS [facility] [phone] Contact made with patient: Yes Patient identified by name and . Discussed care with patient It?s nice talking to you again. As a reminder, this is our bi-weekly check-in where I will be asking you questions about your health. This will only take a few minutes of your time. Is this a good time? Yes Symptoms What Chronic Disease(s) does the patient have: asthma Do you check your blood pressures at home? No Do you have new or worse shortness of breath with activity? No Do you have new or worsening cough? No Do you have new or worsening wheezing? No Do you need to use your rescue (Albuterol) inhaler or nebulizer more often than normal? No Are you having any other symptoms that your PCP needs to know about? No Symptoms: none Symptom Escalation NEISHA Education Ordered -: No The patient required an escalation for symptom(s)? No Medications Do you have any questions about taking your medication or which medications you should be on? No Do you need any medication refills at this time, including any of the medications you might take only when needed? No Social We would like to make sure you have what you need so that your basic needs are met- including your personal safety, food, housing, transportation and medications? Would you like to speak with a social work team coordinator to help give you support for any of these needs? No It can be normal to feel anxious or down during a time like this. Would you like to talk to a mental health professional about how you have been feeling? No Closing Thank you for taking the time to talk with me today. We want to work with you to ensure that we are keeping your medical condition(s) well-controlled and to keep you healthy and out of the doctor's office or hospital. It?s also not too late for me to sign you up for automated weekly questionnaires through [employer]. This is an easy way for us to stay connected each week. Are you interested? No, I understand. We can always sign you up in the future if you change your mind. Just as a reminder, will continue to call you every other week to check in on your health. Our calls should take 10-15 minutes or less. Remember, if you have concerns in between our calls, please call your PCP's office right away. Thank you. Enter next patient outreach date for two weeks on the same day of the week as today in the Track Pt Outreach and End outreach. Allergies As of Date: 12/07/2022 Noted Allergy Reaction LIPITOR (ATORVASTATIN) 08/16/2007 5 - Intolerance Comments: Severe leg cramps, stopped Date Reviewed: 10/26/2022 Reviewed by: Elif Garrett - Fully Assessed Reason for Visit: CDM [Other] Cmt: Telephonic outreach Prescriptions as of 12/07/2022 - gabapentin (NEURONTIN) 400 mg capsule Take 1 capsule by mouth three times daily for 30 days. - tamsulosin (FLOMAX) 0.4 mg Take 1 capsule by mouth twice daily. - nitroglycerin sublingual (NITROQUICK) 0.4 mg SL tablet Dissolve 1 tablet under the tongue as needed. for chest pain,every 5 min x3 - rosuvastatin (CRESTOR) 10 mg tablet Take 1 tablet by mouth once daily. - albuterol HFA (VENTOLIN HFA) 90 mcg/actuation inhaler Inhale 2 Puffs as instructed every 4 hours as needed for wheezing/shortness of breath. - meclizine (ANTIVERT) 25 mg tab Take 1 tablet by mouth every 6 hours as needed (dizziness). - levothyroxine (LEVOXYL) 100 mcg tablet Take 1 tablet PO 5 days a week in AM and take 2 tablets PO 2 days a week. Take on empty stomach. For Thyroid - fluticasone-salmeterol (ADVAIR DISKUS) 100-50 mcg/dose inhaler Inhale 1 Puff as instructed twice daily. Rinse mouth out after use with water. - hydroCHLOROthiazide (HYDRODIURIL, ESIDRIX) 12.5 mg tablet Take 1 tablet by mouth once daily. - lisinopril (ZESTRIL, PRINIVIL) 20 mg tablet Take 1 tablet by mouth twice daily. - atenolol (TENORMIN) 25 mg tablet Take 1 tablet by mouth once daily. - amLODIPine (NORVASC) 10 mg tablet Take 1 tablet by mouth once daily. - cetirizine (ZYRTEC) 10 mg tablet Take 1 tablet by mouth once daily. - meloxicam (MOBIC) (more content not included)... [facility] 12-07-2022 Note HNO ID: [id number] Author: Humberto Wang RN Service: ? Author Type: Registered Nurse Type: Progress Notes Filed: 12/07/2022 12:44 PM Note Text: [facility]IGHT [facility] TELEPHONIC OUTREACH Provider Action/FYI: Spoke with patient who reports that he is feeling well and has no needs at this time. Wt is 229lbs which is 1 lb down from last month. Reminded pt of availability of nurse at [facility] . Reviewed upcoming appts with patient. Asthma Appointments for Next 60 Days Date Time Provider Location Dept Phone 12/14/2022 10:30 AM MENA MACHUCA [facility] [phone] 01/21/2023 8:40 AM HUSAM DERAS [facility] [phone] Contact made with patient: Yes Patient identified by name and . Discussed care with patient It?s nice talking to you again. As a reminder, this is our bi-weekly check-in where I will be asking you questions about your health. This will only take a few minutes of your time. Is this a good time? Yes Symptoms What Chronic Disease(s) does the patient have: asthma Do you check your blood pressures at home? No Do you have new or worse shortness of breath with activity? No Do you have new or worsening cough? No Do you have new or worsening wheezing? No Do you need to use your rescue (Albuterol) inhaler or nebulizer more often than normal? No Are you having any other symptoms that your PCP needs to know about? No Symptoms: none Symptom Escalation NEISHA Education Ordered -: No The patient required an escalation for symptom(s)? No Medications Do you have any questions about taking your medication or which medications you should be on? No Do you need any medication refills at this time, including any of the medications you might take only when needed? No Social We would like to make sure you have what you need so that your basic needs are met- including your personal safety, food, housing, transportation and medications? Would you like to speak with a social work team coordinator to help give you support for any of these needs? No It can be normal to feel anxious or down during a time like this. Would you like to talk to a mental health professional about how you have been feeling? No Closing Thank you for taking the time to talk with me today. We want to work with you to ensure that we are keeping your medical condition(s) well-controlled and to keep you healthy and out of the doctor's office or hospital. It?s also not too late for me to sign you up for automated weekly questionnaires through [employer]. This is an easy way for us to stay connected each week. Are you interested? No, I understand. We can always sign you up in the future if you change your mind. Just as a reminder, will continue to call you every other week to check in on your health. Our calls should take 10-15 minutes or less. Remember, if you have concerns in between our calls, please call your PCP's office right away. Thank you. Enter next patient outreach date for two weeks on the same day of the week as today in the Track Pt Outreach and End outreach. [facility] 12-07-2022 History of Present illness Narrative [facility] TELEPHONIC OUTREACH Provider Action/FYI: Spoke with patient who reports that he is feeling well and has no needs at this time. Wt is 229lbs which is 1 lb down from last month. Reminded pt of availability of nurse at [facility] . Reviewed upcoming appts with patient. Asthma Appointments for Next 60 Days Date Time Provider Location Dept Phone 12/14/2022 10:30 AM MENA MACHUCA [facility] [phone] 01/21/2023 8:40 AM HUSAM DERAS [facility] [place] [phone] Contact made with patient: Yes Patient identified by name and . Discussed care with patient It s nice talking to you again. As a reminder, this is our bi-weekly check-in where I will be asking you questions about your health. This will only take a few minutes of your time. Is this a good time? Yes Symptoms What Chronic Disease(s) does the patient have: asthma Do you check your blood pressures at home? No Do you have new or worse shortness of breath with activity? No Do you have new or worsening cough? No Do you have new or worsening wheezing? No Do you need to use your rescue (Albuterol) inhaler or nebulizer more often than normal? No Are you having any other symptoms that your PCP needs to know about? No Symptoms: none Symptom Escalation NEISHA Education Ordered -: No The patient required an escalation for symptom(s)? No Medications Do you have any questions about taking your medication or which medications you should be on? No Do you need any medication refills at this time, including any of the medications you might take only when needed? No Social We would like to make sure you have what you need so that your basic needs are met- including your personal safety, food, housing, transportation and medications? Would you like to speak with a social work team coordinator to help give you support for any of these needs? No It can be normal to feel anxious or down during a time like this. Would you like to talk to a mental health professional about how you have been feeling? No Closing Thank you for taking the time to talk with me today. We want to work with you to ensure that we are keeping your medical condition(s) well-controlled and to keep you healthy and out of the doctor's office or hospital. It s also not too late for me to sign you up for automated weekly questionnaires through [employer]. This is an easy way for us to stay connected each week. Are you interested? No, I understand. We can always sign you up in the future if you change your mind. Just as a reminder, will continue to call you every other week to check in on your health. Our calls should take 10-15 minutes or less. Remember, if you have concerns in between our calls, please call your PCP's office right away. Thank you. Enter next patient outreach date for two weeks on the same day of the week as today in the Track Pt Outreach and End outreach. documented in this encounter [facility] 2022 Miscellaneous Notes Glendy with [facility] called to see if pt is okay to have a dental extraction done today. Pt is in their office in pain and the doctor has a little time and able to do an extraction. They can only do if pt's pcp approves this to be done. Spoke with Dr. Deras's office and they checked with Dr. Deras and she was okay with this as long as the pt is not on any blood thinners. Braeden Coats reports she does not see that pt should be on a blood thinners. Message related to Glendy and she will double check with the pt. Ashia Brothers LPN documented in this encounter [facility] 11-16-2022 Miscellaneous Notes [facility] OUTREACH Provider Action/FYI: Patient calling [facility] for refill of gabapentin and completely out. Patient was prescribed Lyrica, however, medication was not working at all and he switched back to the gabapentin to help the pain. REFILL NEEDED: gabapentin (NEURONTIN) 400 mg capsule Take 1 capsule by mouth three times daily, HOWEVER, Patient reports needing to take an additional fourth dose at bedtime to allow him to sleep from the pain in his feet. Please call into [place] [facility] Please call patient at [phone] to notify him when ordered. Hello, you've reached [facility], my name is Rosa Jade RN, I'm a registered nurse, and we are on a recorded line. Patient identified by name and date of Spoke with patient Verify that the patient is a [facility] patient: Yes Are you having any symptoms today? No - What is the reason for call? Refill Call Disposition: Managed by H@H RN Thank you for calling [facility]. If you develop any new symptoms, your condition worsens, then GO TO THE EMERGENCY ROOM OR CALL 911. If you have any questions, please call us back. documented in this encounter [facility] 11-12-2022 Note HNO ID: [id number] Author: Stu James APRN.RAFAEL Service: ? Author Type: Nurse Practitioner Type: Progress Notes Filed: 11/12/2022 2:44 PM Note Text: Noted, thank you. Stu James APRN.RAFAEL [facility] 11-12-2022 Miscellaneous Notes Pt informed, verbalized understanding Meredith Montoya Please let George know that his thyroid lab work is all in normal range, no concerns. Stu James APRN.RAFAEL documented in this encounter [facility] 11-11-2022 Note HNO ID: [id number] Author: Yesenia Márquez RN Service: ? Author Type: Registered Nurse Type: Progress Notes Filed: 11/11/2022 8:13 AM Note Text: Attempted to contact pt x 2 at Home/Mobile #, no answer. Attempted to contact pt's son Nick and no answer, and VM box not set up. Please try contacting pt again. Yesenia Márquez RN [facility] 11-10-2022 Note HNO ID: [id number] Author: Husam Deras DO Service: ? Author Type: Physician Type: Progress Notes Filed: 11/10/2022 7:57 PM Note Text: Agree with need to recheck labs now when able. Please inform patient Husam Deras DO [facility] 11-08-2022 Note Patient Outreach (AM [facility]) GEORGE LEWIS ([id number]) 1940 M Date Time Provider Department 11/08/22 HUMBERTO WANG During your visit today, we recorded the following information about you: Humberto Wang RN 11/11/2022 9:17 AM Addendum PRIMARY CARE COORDINATION QUICK NOTE Provider Action/FYI Patient's PCP would like him to have his thyroid labs drawn now. Spoke with patient to inform him of this, and he plans to go to the lab today. [facility] TELEPHONIC OUTREACH Provider Action/I: 2nd TO attempt Spoke with patient who reports that he is feeling very well and has no needs at this time. He goes to the gym nearly ever day and is trying hard to lose wt. He was recently at appointment with PCP who ordered levothyroxine 1 tab 5 days a week and 2 tabs 2 days a week. He reported that he takes 2 tabs 3 days a week and has been doing so for the past 2 wks since the appointment. Explained that this is too many and had him get his AVS so he could read the instructions. He was then able to say he would take his extra dose on Mondays and Fridays only. He then said he had gained 10 lbs in two days. Declined need to speak with virtualist. Patient does not have a condition like CHF and has no edema/SOB/symptoms of fluid overload. Explained that something must be wrong with his scale because he would be having symptoms if he had gained weight that fast. We reviewed his wt in the appointment 2 wks ago which was 230lbs. He says that is what he weighed at home this morning on his scale while wearing only shorts. He assumed that his clothes and shoes weighed 10 lbs at the appointment. Explained that he should write down his wts as he does them at home in his shorts only since this is the most accurate way to determine wt loss or gain. Explained need to call PCP office with any concerns and reminded pt of availability of nurse at [facility] . Sent message to PCP to notify of levothyroxine error of taking one extra tablet per week for two weeks and asked when she wants his labwork done. Asthma Appointments for Next 60 Days Date Time Provider Location Dept Phone 12/14/2022 10:30 AM MENA MACHUCA [phone] Contact made with patient: Yes Patient identified by name and . Discussed care with patient It?s nice talking to you again. As a reminder, this is our bi-weekly check-in where I will be asking you questions about your health. This will only take a few minutes of your time. Is this a good time? Yes Symptoms What Chronic Disease(s) does the patient have: COPD Do you check your blood pressures at home? No Do you have new or worse shortness of breath with activity? No Do you have new or worsening cough? No Do you have new or worsening wheezing? No Do you need to use your rescue (Albuterol) inhaler or nebulizer more often than normal? No Are you having any other symptoms that your PCP needs to know about? No Symptoms: none Symptom Escalation NEISHA Education Ordered -: No The patient required an escalation for symptom(s)? No Medications Do you have any questions about taking your medication or which medications you should be on? No Do you need any medication refills at this time, including any of the medications you might take only when needed? No Social We would like to make sure you have what you need so that your basic needs are met- including your personal safety, food, housing, transportation and medications? Would you like to speak with a social work team coordinator to help give you support for any of these needs? No It can be normal to feel anxious or down during a time like this. Would you like to talk to a mental health professional about how you have been feeling? No Closing Thank you for taking the time to talk with me today. We want to work with you to ensure that we are keeping your medical condition(s) well-controlled and to keep you healthy and out of the doctor's office or hospital. It?s also not too late for me to sign you up for automated weekly questionnaires through [employer]. This is an easy way for us to stay connected each week. Are you interested? No, I understand. We can always sign you up in the future if you change your mind. Just as a reminder, will continue to call you every other week to check in on your health. Our calls should take 10-15 minutes or less. Remember, if you have concerns in between our calls, please call your PCP's office right away. Thank you. Enter next patient outreach date for two weeks on the same day of the week as today in the Track Pt Outreach and End outreach. Husam Deras DO 11/10/2022 7:57 PM Signed Agree with need to recheck labs now when able. Please inform patient DO Husam Hammonds DO 11/10/2022 7:57 PM Signed Addended by: BRAEDEN, (more content not included)... [facility] 11-08-2022 Note HNO ID: [id number] Author: Humberto Wang RN Service: ? Author Type: Registered Nurse Type: Progress Notes Filed: 11/11/2022 9:17 AM Note Text: PRIMARY CARE COORDINATION QUICK NOTE Provider Action/FYI Patient's PCP would like him to have his thyroid labs drawn now. Spoke with patient to inform him of this, and he plans to go to the lab today. [facility] TELEPHONIC OUTREACH Provider Action/FYI: 2nd TO attempt Spoke with patient who reports that he is feeling very well and has no needs at this time. He goes to the gym nearly ever day and is trying hard to lose wt. He was recently at appointment with PCP who ordered levothyroxine 1 tab 5 days a week and 2 tabs 2 days a week. He reported that he takes 2 tabs 3 days a week and has been doing so for the past 2 wks since the appointment. Explained that this is too many and had him get his AVS so he could read the instructions. He was then able to say he would take his extra dose on Mondays and Fridays only. He then said he had gained 10 lbs in two days. Declined need to speak with virtualist. Patient does not have a condition like CHF and has no edema/SOB/symptoms of fluid overload. Explained that something must be wrong with his scale because he would be having symptoms if he had gained weight that fast. We reviewed his wt in the appointment 2 wks ago which was 230lbs. He says that is what he weighed at home this morning on his scale while wearing only shorts. He assumed that his clothes and shoes weighed 10 lbs at the appointment. Explained that he should write down his wts as he does them at home in his shorts only since this is the most accurate way to determine wt loss or gain. Explained need to call PCP office with any concerns and reminded pt of availability of nurse at [facility] . Sent message to PCP to notify of levothyroxine error of taking one extra tablet per week for two weeks and asked when she wants his labwork done. Asthma Appointments for Next 60 Days Date Time Provider Location Dept Phone 12/14/2022 10:30 AM BRIGETTE MENADELANEY Venegas [phone] Contact made with patient: Yes Patient identified by name and . Discussed care with patient It?s nice talking to you again. As a reminder, this is our bi-weekly check-in where I will be asking you questions about your health. This will only take a few minutes of your time. Is this a good time? Yes Symptoms What Chronic Disease(s) does the patient have: COPD Do you check your blood pressures at home? No Do you have new or worse shortness of breath with activity? No Do you have new or worsening cough? No Do you have new or worsening wheezing? No Do you need to use your rescue (Albuterol) inhaler or nebulizer more often than normal? No Are you having any other symptoms that your PCP needs to know about? No Symptoms: none Symptom Escalation NEISHA Education Ordered -: No The patient required an escalation for symptom(s)? No Medications Do you have any questions about taking your medication or which medications you should be on? No Do you need any medication refills at this time, including any of the medications you might take only when needed? No Social We would like to make sure you have what you need so that your basic needs are met- including your personal safety, food, housing, transportation and medications? Would you like to speak with a social work team coordinator to help give you support for any of these needs? No It can be normal to feel anxious or down during a time like this. Would you like to talk to a mental health professional about how you have been feeling? No Closing Thank you for taking the time to talk with me today. We want to work with you to ensure that we are keeping your medical condition(s) well-controlled and to keep you healthy and out of the doctor's office or hospital. It?s also not too late for me to sign you up for automated weekly questionnaires through [employer]. This is an easy way for us to stay connected each week. Are you interested? No, I understand. We can always sign you up in the future if you change your mind. Just as a reminder, will continue to call you every other week to check in on your health. Our calls should take 10-15 minutes or less. Remember, if you have concerns in between our calls, please call your PCP's office right away. Thank you. Enter next patient outreach date for two weeks on the same day of the week as today in the Track Pt Outreach and End outreach. [facility] 11-05-2022 Note Patient Outreach ([facility]) RUPERTOИРИНАGEORGE ([id number]) 1940 M Date Time Provider Department 11/05/22 HUMBERTO WANG During your visit today, we recorded the following information about you: Humberto Wang RN 11/05/2022 2:45 PM Signed [facility] TELEPHONIC OUTREACH Provider Action/FYI: Left Asthma Appointments for Next 60 Days Date Time Provider Location Dept Phone 12/14/2022 10:30 AM MENA MACHUCA [facility] [phone] Contact made with patient: No - Left message Hello my name is Humberto Wang RN your Electronic Page Makeup System Operator from the [facility] I am calling today for your bi-weekly check in. I am sorry I missed your call. I will reach out to you again tomorrow. (if the third call I will reach out to you again next week) Enter next patient outreach date for the following day using the Track Pt Outreach. End outreach. Allergies As of Date: 11/05/2022 Noted Allergy Reaction LIPITOR (ATORVASTATIN) 08/16/2007 5 - Intolerance Comments: Severe leg cramps, stopped Date Reviewed: 10/26/2022 Reviewed by: Elif Garrett - Fully Assessed Reason for Visit: CDM [Other] Cmt: Telephonic outreach Prescriptions as of 11/05/2022 - tamsulosin (FLOMAX) 0.4 mg Take 1 capsule by mouth twice daily. - nitroglycerin sublingual (NITROQUICK) 0.4 mg SL tablet Dissolve 1 tablet under the tongue as needed. for chest pain,every 5 min x3 - rosuvastatin (CRESTOR) 10 mg tablet Take 1 tablet by mouth once daily. - albuterol HFA (VENTOLIN HFA) 90 mcg/actuation inhaler Inhale 2 Puffs as instructed every 4 hours as needed for wheezing/shortness of breath. - pregabalin (LYRICA) 150 mg capsule Take 1 capsule by mouth twice daily for 90 days. - meclizine (ANTIVERT) 25 mg tab Take 1 tablet by mouth every 6 hours as needed (dizziness). - levothyroxine (LEVOXYL) 100 mcg tablet Take 1 tablet PO 5 days a week in AM and take 2 tablets PO 2 days a week. Take on empty stomach. For Thyroid - fluticasone-salmeterol (ADVAIR DISKUS) 100-50 mcg/dose inhaler Inhale 1 Puff as instructed twice daily. Rinse mouth out after use with water. - hydroCHLOROthiazide (HYDRODIURIL, ESIDRIX) 12.5 mg tablet Take 1 tablet by mouth once daily. - lisinopril (ZESTRIL, PRINIVIL) 20 mg tablet Take 1 tablet by mouth twice daily. - atenolol (TENORMIN) 25 mg tablet Take 1 tablet by mouth once daily. - amLODIPine (NORVASC) 10 mg tablet Take 1 tablet by mouth once daily. - cetirizine (ZYRTEC) 10 mg tablet Take 1 tablet by mouth once daily. - meloxicam (MOBIC) 7.5 mg tablet Take 1 tablet by mouth once daily. for pain. Take with food. - psyllium Husk 0.52 gram capsule Take 0.52 g by mouth once daily. - docosahexaenoic acid/epa (FISH OIL ORAL) Take by mouth once daily. - ergocalciferol, vitamin D2, (VITAMIN D2 ORAL) Take by mouth once daily. - DAILY MULTI-VITAMIN ORAL Take by mouth once daily. - OTC PRODUCT Takes 1 spoonful of beet powder couple days a week - aspirin, enteric coated 81 mg EC tablet Take 81 mg by mouth once daily. Facility-Administered Medications as of 11/05/2022 - perflutren lipid microspheres 1.3 mL in NaCl (PF) 0.9% 10 mL injection (DEFINITY) - sodium chloride 0.9 % (flush) 10 mL (BD POSIFLUSH) Meds Comments as of 10/15/2015: Clairitin daily Problem List As Of Date 11/05/2022 Noted Resolved Essential hypertension [I10] Coronary atherosclerosis of unspecified type of* 04/19/2019 Obesity, unspecified [E66.9] 03/30/2017 HEARING LOSS NOS [H91.90] FAMILY HX GI MALIGNANCY [Z80.0] 08/16/2007 LOC PRIM OSTEOART-L/LEG [M17.10] 08/19/2007 COPD (chronic obstructive pulmonary disease) (H*08/19/2007 BENIGN NEOPLASM LG BOWEL [D12.6] 02/01/2008 Hyperlipidemia LDL goal <70 [E78.5] 02/16/2008 Gynecomastia [N62] 07/20/2012 Shoulder pain, right [M25.511] 08/09/2012 Abnormal stress test [R94.39] 07/01/2014 Hx of CABG [Z95.1] 07/01/2014 PVC's (premature ventricular contractions) [I49*07/01/2014 Pain in joint, shoulder region [M25.519] 02/10/2015 Complete tear of right rotator cuff [M75.121] 09/02/2015 Obesity (BMI 30.0-34.9) [E66.9] 03/30/2017 10/20/2018 Coronary artery disease involving igiugig lau*10/18/2017 Obesity, Class I, BMI 30-34.9 [E66.9] 10/18/2017 Dizziness [R42] 12/19/2017 Elevated fasting glucose [R73.01] 12/19/2017 Allergic rhinitis due to allergen [J30.9] 12/19/2017 PAD (peripheral artery disease) (HCC) [I73.9] 03/16/2019 Pure hypercholesterolemia [E78.00] 04/20/2019 10/25/2022 Chronic pain of both knees [M25.561, M25.562, G*04/20/2019 Pain of right lower extremity [M79.604] 10/23/2019 Benign nodular prostatic hyperplasia without lo*01/20/2021 Actinic keratosis [L57.0] 01/20/2021 Lumbar stenosis with neurogenic claudication [M*04/09/2021 Weight gain [R63.5] 07/21/2021 Vitamin D deficiency [E55.9] 07/21/2021 IFG (impaired fasting gluco (more content not included)... [facility] 11-05-2022 Note HNO ID: [id number] Author: Humberto Wang RN Service: ? Author Type: Registered Nurse Type: Progress Notes Filed: 11/05/2022 2:45 PM Note Text: [facility] TELEPHONIC OUTREACH Provider Action/FYI: Left VM Asthma Appointments for Next 60 Days Date Time Provider Location Dept Phone 12/14/2022 10:30 AM MENA MACHUCA [phone] Contact made with patient: No - Left message Rubenjunie my name is Humberto Wang RN your Electronic Page Makeup System Operator from the [facility] I am calling today for your bi-weekly check in. I am sorry I missed your call. I will reach out to you again tomorrow. (if the third call I will reach out to you again next week) Enter next patient outreach date for the following business day using the Track Pt Outreach. End outreach. [facility] 11-05-2022 History of Present illness Narrative [facility] TELEPHONIC OUTREACH Provider Action/FYI: Left VM Asthma Appointments for Next 60 Days Date Time Provider Location Dept Phone 12/14/2022 10:30 AM MENA MACHUCA [phone] Contact made with patient: No - Left message Rubenjunie my name is Humberto Wang RN your Electronic Page Makeup System Operator from the [facility] I am calling today for your bi-weekly check in. I am sorry I missed your call. I will reach out to you again tomorrow. (if the third call I will reach out to you again next week) Enter next patient outreach date for the following business day using the Track Pt Outreach. End outreach. documented in this encounter [facility] 11-02-2022 Miscellaneous Notes [facility] OUTREACH Provider Action/FYI: Patient returning sonny to pcp office. Please see 10/25/22 refill encounter. Charly, you've reached [facility], my name is Kimberly Baker RN, I'm a registered nurse, and we are on a recorded line. Patient identified by name and date of Spoke with patient Verify that the patient is a [facility] patient: Yes Are you having any symptoms today? No - What is the reason for call? General Questions/Other Need Call Disposition: Managed by H@H RN Thank you for calling [facility]. If you develop any new symptoms, your condition worsens, then GO TO THE EMERGENCY ROOM OR CALL 911. If you have any questions, please call us back. documented in this encounter [facility] 10-26-2022 Note HNO ID: [id number] Author: Jose M Kay APRN.PRECIPITATOR OPERATOR Service: ? Author Type: Nurse Practitioner Type: Progress Notes Filed: 10/26/2022 12:08 PM Note Text: [facility] [place] [facility] Department of Cardiovascular Medicine SECTION OF CLINICAL CARDIOLOGY OUTPATIENT VISIT DATE October 25, 2022 OUTPATIENT VISIT TYPE ESTABLISHED PRIMARY CARE PHYSICIAN: Husam Deras [address] [place] [address] REASON FOR VISIT: 8 month follow up - last OV with Dr. Bueno on 02/18/22 (no changes) HISTORY OF PRESENT ILLNESS: Mr. Lewis is a 81 year old male with a history of CAD, S/P CABG x 3 (1999), bilateral carotid artery stenosis, PAD, HTN, HLD, prediabetes, and hypothyroidism. He's had no hospitalizations, surgeries, or procedures following his last office visit. He denies chest pain, shortness of breath, dyspnea on exertion, orthopnea, PND, palpitations, near syncope, syncope, or edema. Rare lightheadedness. He exercises at the gym everyday for 30min on the recumbent bike followed by strength training weight machines. Subjective PAST MEDICAL HISTORY Diagnosis Date Benign neoplasm of colon 02/01/2008 Coronary atherosclerosis of unspecified type of vessel, igiugig or graft 09/12/1999 s/p CABG 1999, first he knew of CAD IFG (impaired fasting glucose) 11/2020 Obesity, unspecified Unspecified essential hypertension 09/12/1999 on BP meds since bypass Unspecified hearing loss mild/moderate, both ears; PAST SURGICAL HISTORY Procedure Laterality Date COLONOSCOPY FLX DX W/COLLJ SPEC WHEN PFRMD 02/07/2014 Colonoscopy COLONOSCOPY FLX DX W/COLLJ SPEC WHEN PFRMD 03/07/2019 Colonoscopy COLONOSCOPY W/BIOPSY SINGLE/MULTIPLE 02/01/08 HEMORRHOIDECTOMY XTRNL 2/> COLUMN/GROUP 1989 hemorrhoidectomy PAST SURGICAL HISTORY OF 1999 CABG x 3, [facility], Dr. Murray PAST SURGICAL HISTORY OF 1980 Bilateral shoulder surgery post trauma SOCIAL HISTORY Social History Tobacco Use Smoking status: Former Types: Cigarettes Quit date: 09/12/1989 Years since quittin.1 Smokeless tobacco: Never Vaping Use Vaping Use: Never used Substance Use Topics Alcohol use: No Drug use: No FAMILY HISTORY Problem Relation Age of Onset Colon Cancer Mother before age 60 (pt unsure) Coronary Artery Disease Father of presumed CA; heavy drinker Alcohol/Drug Father Prostate Cancer Other none Diabetes Other none ALLERGIES: ALLERGIES Allergen Reactions Lipitor [Atorvastat* Intolerance Severe leg cramps, stopped MEDICATIONS: albuterol HFA (VENTOLIN HFA) 90 mcg/actuation inhalerInhale 2 Puffs as instructed every 4 hours as needed for wheezing/shortness of breath.Disp: 36 gRfl: 3 pregabalin (LYRICA) 150 mg capsuleTake 1 capsule by mouth twice daily for 90 days.Disp: 60 capsuleRfl: 2 meclizine (ANTIVERT) 25 mg tabTake 1 tablet by mouth every 6 hours as needed (dizziness).Disp: 20 tabletRfl: 6 levothyroxine (LEVOXYL) 100 mcg tabletTake 1 tablet PO 5 days a week in AM and take 2 tablets PO 2 days a week. Take on empty stomach. For ThyroidDisp: 114 tabletRfl: 3 fluticasone-salmeterol (ADVAIR DISKUS) 100-50 mcg/dose inhalerInhale 1 Puff as instructed twice daily. Rinse mouth out after use with water.Disp: 180 EachRfl: 1 hydroCHLOROthiazide (HYDRODIURIL, ESIDRIX) 12.5 mg tabletTake 1 tablet by mouth once daily.Disp: 90 tabletRfl: 3 lisinopril (ZESTRIL, PRINIVIL) 20 mg tabletTake 1 tablet by mouth twice daily.Disp: 180 tabletRfl: 3 tamsulosin (FLOMAX) 0.4 mgTAKE 1 CAPSULE BY MOUTH TWICE DAILY THEN TAKE 1 CAPSULE AT BEDTIME.Disp: 180 capsuleRfl: 3 atenolol (TENORMIN) 25 mg tabletTake 1 tablet by mouth once daily.Disp: 30 tabletRfl: 11 amLODIPine (NORVASC) 10 mg tabletTake 1 tablet by mouth once daily.Disp: 90 tabletRfl: 1 meloxicam (MOBIC) 7.5 mg tabletTake 1 tablet by mouth once daily. for pain. Take with food.Disp: 30 tabletRfl: 1 psyllium Husk 0.52 gram capsuleTake 0.52 g by mouth once daily.Disp: Rfl: docosahexaenoic acid/epa (FISH OIL ORAL)Take by mouth once daily.Disp: Rfl: ergocalciferol, vitamin D2, (VITAMIN D2 ORAL)Take by mouth once daily. Disp: Rfl: DAILY MULTI-VITAMIN ORALTake by mouth once daily.Disp: Rfl: OTC PRODUCTTakes 1 spoonful of beet powder couple days a week Disp: Rfl: aspirin, enteric coated 81 mg EC tabletTake 81 mg by mouth once daily.Disp: Rfl: nitroglycerin sublingual (NITROQUICK) 0.4 mg SL tabletDissolve 1 tablet under the tongue as needed. for chest pain,every 5 min x3Disp: 25 tabletRfl: 1 rosuvastatin (CRESTOR) 10 mg tabletTake 1 tablet by mouth once daily.Disp: 30 tabletRfl: 11 cetirizine (ZYRTEC) 10 mg tabletTake 1 tablet by mouth once daily.Disp: 30 tabletRfl: 5 (Patient not taking: Reported on 10/26/2022) REVIEW OF SYSTEMS: GENERAL: Negative for: Weight loss or gain, Fever or Chills, Weakness and Sleep difficulties. HEENT: Nega (more content not included)... [facility] 10-26-2022 History of Present illness Narrative Images from the original note were not included. [facility] [place] [facility] Department of Cardiovascular Medicine SECTION OF CLINICAL CARDIOLOGY OUTPATIENT VISIT DATE October 25, 2022 OUTPATIENT VISIT TYPE ESTABLISHED PRIMARY CARE PHYSICIAN: Husam Deras [address] [place] [address] REASON FOR VISIT: 8 month follow up - last OV with Dr. Bueno on 02/18/22 (no changes) HISTORY OF PRESENT ILLNESS: Mr. Lewis is a 81 year old male with a history of CAD, S/P CABG x 3 (1999), bilateral carotid artery stenosis, PAD, HTN, HLD, prediabetes, and hypothyroidism. He's had no hospitalizations, surgeries, or procedures following his last office visit. He denies chest pain, shortness of breath, dyspnea on exertion, orthopnea, PND, palpitations, near syncope, syncope, or edema. Rare lightheadedness. He exercises at the gym everyday for 30min on the recumbent bike followed by strength training weight machines. Subjective PAST MEDICAL HISTORY Diagnosis Date Benign neoplasm of colon 02/01/2008 Coronary atherosclerosis of unspecified type of vessel, igiugig or graft 09/12/1999 s/p CABG 1999, first he knew of CAD IFG (impaired fasting glucose) 11/2020 Obesity, unspecified Unspecified essential hypertension 09/12/1999 on BP meds since bypass Unspecified hearing loss mild/moderate, both ears; PAST SURGICAL HISTORY Procedure Laterality Date COLONOSCOPY FLX DX W/COLLJ SPEC WHEN PFRMD 02/07/2014 Colonoscopy COLONOSCOPY FLX DX W/COLLJ SPEC WHEN PFRMD 03/07/2019 Colonoscopy COLONOSCOPY W/BIOPSY SINGLE/MULTIPLE 02/01/08 HEMORRHOIDECTOMY XTRNL 2/> COLUMN/GROUP 1989 hemorrhoidectomy PAST SURGICAL HISTORY OF 1999 CABG x 3, [facility], Dr. Murray PAST SURGICAL HISTORY OF 1980 Bilateral shoulder surgery post trauma SOCIAL HISTORY Social History Tobacco Use Smoking status: Former Types: Cigarettes Quit date: 09/12/1989 Years since quittin.1 Smokeless tobacco: Never Vaping Use Vaping Use: Never used Substance Use Topics Alcohol use: No Drug use: No FAMILY HISTORY Problem Relation Age of Onset Colon Cancer Mother before age 60 (pt unsure) Coronary Artery Disease Father of presumed CA; heavy drinker Alcohol/Drug Father Prostate Cancer Other none Diabetes Other none ALLERGIES: ALLERGIES Allergen Reactions Lipitor [Atorvastat* Intolerance Severe leg cramps, stopped MEDICATIONS: albuterol HFA (VENTOLIN HFA) 90 mcg/actuation inhaler^Inhale 2 Puffs as instructed every 4 hours as needed for wheezing/shortness of breath.^Disp: 36 g^Rfl: 3 pregabalin (LYRICA) 150 mg capsule^Take 1 capsule by mouth twice daily for 90 days.^Disp: 60 capsule^Rfl: 2 meclizine (ANTIVERT) 25 mg tab^Take 1 tablet by mouth every 6 hours as needed (dizziness).^Disp: 20 tablet^Rfl: 6 levothyroxine (LEVOXYL) 100 mcg tablet^Take 1 tablet PO 5 days a week in AM and take 2 tablets PO 2 days a week. Take on empty stomach. For Thyroid^Disp: 114 tablet^Rfl: 3 fluticasone-salmeterol (ADVAIR DISKUS) 100-50 mcg/dose inhaler^Inhale 1 Puff as instructed twice daily. Rinse mouth out after use with water.^Disp: 180 Each^Rfl: 1 hydroCHLOROthiazide (HYDRODIURIL, ESIDRIX) 12.5 mg tablet^Take 1 tablet by mouth once daily.^Disp: 90 tablet^Rfl: 3 lisinopril (ZESTRIL, PRINIVIL) 20 mg tablet^Take 1 tablet by mouth twice daily.^Disp: 180 tablet^Rfl: 3 tamsulosin (FLOMAX) 0.4 mg^TAKE 1 CAPSULE BY MOUTH TWICE DAILY THEN TAKE 1 CAPSULE AT BEDTIME.^Disp: 180 capsule^Rfl: 3 atenolol (TENORMIN) 25 mg tablet^Take 1 tablet by mouth once daily.^Disp: 30 tablet^Rfl: 11 amLODIPine (NORVASC) 10 mg tablet^Take 1 tablet by mouth once daily.^Disp: 90 tablet^Rfl: 1 meloxicam (MOBIC) 7.5 mg tablet^Take 1 tablet by mouth once daily. for pain. Take with food.^Disp: 30 tablet^Rfl: 1 psyllium Husk 0.52 gram capsule^Take 0.52 g by mouth once daily.^Disp: ^Rfl: docosahexaenoic acid/epa (FISH OIL ORAL)^Take by mouth once daily.^Disp: ^Rfl: ergocalciferol, vitamin D2, (VITAMIN D2 ORAL)^Take by mouth once daily. ^Disp: ^Rfl: DAILY MULTI-VITAMIN ORAL^Take by mouth once daily.^Disp: ^Rfl: OTC PRODUCT^Takes 1 spoonful of beet powder couple days a week ^Disp: ^Rfl: aspirin, enteric coated 81 mg EC tablet^Take 81 mg by mouth once daily.^Disp: ^Rfl: nitroglycerin sublingual (NITROQUICK) 0.4 mg SL tablet^Dissolve 1 tablet under the tongue as needed. for chest pain,every 5 min x3^Disp: 25 tablet^Rfl: 1 rosuvastatin (CRESTOR) 10 mg tablet^Take 1 tablet by mouth once daily.^Disp: 30 tablet^Rfl: 11 cetirizine (ZYRTEC) 10 mg tablet^Take 1 tablet by mouth once daily.^Disp: 30 tablet^Rfl: 5 (Patient not taking: Reported on 10/26/2022) REVIEW OF SYSTEMS: GENERAL: Negative for: Weight loss or gain, Fever or Chills, Weakness and Sleep difficulties. HEENT: Negative for: Headache, Impaired Vision, Glasses, Hearing Impairment, Ringing in Ears, Nosebleeds, Poor Dental Care, Bleeding Gums and Dentures. NECK: Negative for: Swelling, Pain, Stiffness RESPIRATORY: See HPI CARDIOVASCULAR: See HPI GASTROINTESTINAL: Negative for: Trouble swallowing, Heartburn, Change in bowel habits, Blood in stool, Dark black stools MUSCULOSKELETAL: Negative for: Muscle or joint pain, stiffness, Joint swelling NEUROLOGIC/PSYCHIATRIC: Negative for: Weakness, Paralysis, Numbness, Tingling, Tremor, Nervousness or anxiety, Depressed mood, Memory loss SKIN: Negative for: Rash, Itching HEMATOLOGICAL/LYMPHATIC: Negative for: Easy bruising, Easy bleeding ENDOCRINE: Negative for: Heat or Cold Intolerance, Excessive Sweating, Frequent Urination, Frequent Thirst Objective PHYSICAL EXAMINATION: BP 128/54 Pulse (!) 55 Ht 177.8 cm (5' 10 ) Wt 104.6 kg (230 lb 11.2 oz) SpO2 98% BMI 33.10 kg/m General: Well appearing, in no acute distress, speaking in complete sentences. Skin: No clubbing, no cyanosis. Eyes: Extra ocular movements intact Oropharynx: Teeth in good repair. Neck: No jugular venous distention, no carotid bruits, carotids have a normal upstroke, no palpable thyromegaly. Lungs: Clear to auscultation bilaterally, no wheezing or rhonchi. Heart: Regular rhythm, no murmur. Abdomen: Soft, nontender, bowel sounds normal, no palpable organomegaly, no bruits. Extremities: No peripheral edema . Grade 2/4 distal pulses bilaterally. Neuro: Oriented to person, place and time, alert. CARDIOVASCULAR MEDICINE TESTING: EKG (10/25/22): sinus ciarra, 55bpm Echocardiogram (02/11/2022): CONCLUSIONS: - Technically difficult exam due to body habitus. - Exam indication: Shortness of Breath - The left ventricle is normal in size. Left ventricular systolic function is normal. EF = 55 5% (visual est.) Grade I left ventricular diastolic dysfunction. The left ventricle is not well visualized. - The right ventricle is not well visualized. No determination of systolic function cannot be made on this study. -Definity unavailable. -This is a technically difficult study due to limited acoustic window and is of low diagnostic confidence. - Exam was compared with the prior CC echocardiographic exam performed on 03/02/2019, no significant change. Difficult to compare with the limitations of current study. Pharmacologic MPI stress test (12/11/2021): CONCLUSIONS: 1. SPECT Perfusion Study: Abnormal. 2. No evidence of scarred myocardium. 3. There is mild (<10%) ischemia in the territory of the LCX. 4. Left ventricle is normal in size. The left ventricle systolic function is normal. 5. This is a low risk scan. LVEF % 67 I have personally reviewed the Electrocardiogram. IMPRESSION: 1. Coronary artery disease - S/P CABG x 3 (MORALES-LAD, SVG-OM, SVG-PDA) in 2000 at [facility] 2018 ([place]): severe igiugig disease with widely patent grafts - Pharm MPI 12/2021: mild ischemia to LCx, no scarred myocardium - Clinically stable and denies chest pain - Continue ASA, statin, and BB 2. PAD / Bilateral carotid artery stenosis - US Carotids 05/2022: 40-59% MARCIANO stenosis, 60-79% LICA stenosis - RIAN/PVRs 05/2022: right 0.79 (mild), left 0.77 (mild) - Currently on ASA + statin - Follows with vascular surgery 3. Essential hypertension - Good control on amlodipine, HCTZ, lisinopril, and atenolol - Encouraged dietary sodium restriction/DASH diet - Reviewed risks of HTN and principles of treatment - Goal of BP <130/80 4. Mixed hyperlipidemia - Currently on pravastatin 80mg daily - Last lipid panel 11/2021 with LDL 76 - Switch to rosuvastatin 10mg daily 5. Prediabetes - Last A2C 5.7 PLAN AND RECOMMENDATIONS: Patient appears stable with no symptoms to suggest angina or cardiac decompensation. Heart rate and blood pressure appears under favorable control. His lipid panel is not quite at goal, as his target LDL is less than 70. He is already on the highest dose of pravastatin so I will switch to rosuvastatin 10 mg once daily and repeat lipid panel in 3 months, with up-titration thereafter so long as he tolerates it. He should continue to actively engage in cardiovascular risk factor modification and follow up with Dr. Bueno in 6 months time, or sooner should need arise. CONTACT INFORMATION: Jose M Kay APRN.[facility] Cardiology Nurse Practitioner Section of [facility] Dept of Cardiovascular Medicine [facility] [place] [id number] Office Office This note was partially generated using [employer] voice recognition system, and there may be some incorrect words, spellings, and punctuation that were not noted in checking the note before saving. I personally interviewed, confirmed and edited the above information if obtained by others. documented in this encounter [facility] 10-26-2022 Instructions Jose M Kay APRN.CNP - 10/26/2022 11:17 AM EST 1. Stop pravastatin 2. Start rosuvastatin 10mg once a day 3. We'll recheck your fasting blood work in 3 months to check the cholesterol. documented in this encounter [facility] 10-26-2022 Miscellaneous Notes Kayleigh with [facility] calls to request Tamsulosin order be re-sent with clarified instructions whether it is to be once daily as previously ordered or twice daily. Pended for twice daily. Needs override reason if ordered twice daily or changed to once daily. Please review and advise, Tamra Real RN documented in this encounter [facility] 10-26-2022 Miscellaneous Notes [facility] OUTREACH Provider Action/FYI: Patient calling to schedule an appointment with his vascular doctor, Dr. Machuca. Charly, you've reached [facility], my name is Annie Deleon RN, I'm a registered nurse, and we are on a recorded line. Patient identified by name and date of Spoke with patient Verify that the patient is a [facility] patient: Yes - however calling in regard to vascular appointment. Are you having any symptoms today? No - What is the reason for call? Appointment Call Disposition: Transferred to Appointment Center documented in this encounter [facility] 10-25-2022 Note HNO ID: [id number] Author: Husam Deras, DO Service: ? Author Type: Physician Type: Progress Notes Filed: 10/26/2022 5:42 PM Note Text: CC: George Lewis is a 81 year old male who presents to the office for follow up HPI: Obesity, admits to weight gain in the past due to spine issues, thought it was secondary to eating a lot of blueberries and healthy carbohydrates, was recently found to have hypothyroidism, has been taking levothyroxine 50 mcg daily. trying to cut back on these carbohydrates and sugars and breads. Now only eating occasional keto breads. Has been starting a protein drink and has been able to intentionally lose some weight. Had previously been getting a little shortness of breath with walking/exertion. Did have nuclear stress testing before his surgery in December, no recent ECHO since 2018. Does have cardiology appt scheduled with Dr. Bueno on 02/18. No chest pressure or pain or palpitations or leg edema. No cough or wheezing. Doesn't smoke. Had PFTs completed which did confirm asthma concerns, he was started on Advair, tolerating well without SE Recent laparoscopic cholecystectomy in the last year, feels his bowel symptoms are improving and now eating yogurt once a day which is helpful for his symptoms. No blood in stool. Hypothyroidism, acquired, recently diagnosed 2020, taking 100 mcg levothyroxine daily TSH Date Value Ref Range Status 07/21/2022 2.280 0.270 - 4.200 mIU/L Final IFG, diet controlled PAST MEDICAL HISTORY Diagnosis Date Benign neoplasm of colon 02/01/2008 Coronary atherosclerosis of unspecified type of vessel, igiugig or graft 09/12/1999 s/p CABG 1999, first he knew of CAD IFG (impaired fasting glucose) 11/2020 Obesity, unspecified Unspecified essential hypertension 09/12/1999 on BP meds since bypass Unspecified hearing loss mild/moderate, both ears; PAST SURGICAL HISTORY Procedure Laterality Date COLONOSCOPY FLX DX W/COLLJ SPEC WHEN PFRMD 02/07/2014 Colonoscopy COLONOSCOPY FLX DX W/COLLJ SPEC WHEN PFRMD 03/07/2019 Colonoscopy COLONOSCOPY W/BIOPSY SINGLE/MULTIPLE 02/01/08 HEMORRHOIDECTOMY XTRNL 2/> COLUMN/GROUP 1989 hemorrhoidectomy PAST SURGICAL HISTORY OF 1999 CABG x 3, [facility], Dr. Murray PAST SURGICAL HISTORY OF 1980 Bilateral shoulder surgery post trauma Social History: Social History Tobacco Use Smoking status: Former Types: Cigarettes Quit date: 09/12/1989 Years since quittin.1 Smokeless tobacco: Never Vaping Use Vaping Use: Never used Substance Use Topics Alcohol use: No Drug use: No FAMILY HISTORY Problem Relation Age of Onset Colon Cancer Mother before age 60 (pt unsure) Coronary Artery Disease Father of presumed CA; heavy drinker Alcohol/Drug Father Prostate Cancer Other none Diabetes Other none Current Outpatient prescriptions: atenolol (TENORMIN) 25 mg tabletTake 1 tablet by mouth once daily.Disp: 30 tabletRfl: 11 pravastatin (PRAVACHOL) 80 mg tabletTake 1 tablet by mouth once daily.Disp: 90 tabletRfl: 1 amLODIPine (NORVASC) 10 mg tabletTake 1 tablet by mouth once daily.Disp: 90 tabletRfl: 1 cetirizine (ZYRTEC) 10 mg tabletTake 1 tablet by mouth once daily.Disp: 30 tabletRfl: 5 meloxicam (MOBIC) 7.5 mg tabletTake 1 tablet by mouth once daily. for pain. Take with food.Disp: 30 tabletRfl: 1 psyllium Husk 0.52 gram capsuleTake 0.52 g by mouth once daily.Disp: Rfl: docosahexaenoic acid/epa (FISH OIL ORAL)Take by mouth once daily.Disp: Rfl: ergocalciferol, vitamin D2, (VITAMIN D2 ORAL)Take by mouth once daily. Disp: Rfl: DAILY MULTI-VITAMIN ORALTake by mouth once daily.Disp: Rfl: OTC PRODUCTTakes 1 spoonful of beet powder couple days a week Disp: Rfl: nitroglycerin sublingual (NITROQUICK) 0.4 mg SL tabletDissolve 1 tablet under the tongue as needed. for chest pain,every 5 min x3Disp: 1 Bottle of 25Rfl: 3 aspirin, enteric coated 81 mg EC tabletTake 81 mg by mouth once daily.Disp: Rfl: albuterol HFA (VENTOLIN HFA) 90 mcg/actuation inhalerInhale 2 Puffs as instructed every 4 hours as needed for wheezing/shortness of breath.Disp: 36 gRfl: 3 pregabalin (LYRICA) 150 mg capsuleTake 1 capsule by mouth twice daily for 90 days.Disp: 60 capsuleRfl: 2 meclizine (ANTIVERT) 25 mg tabTake 1 tablet by mouth every 6 hours as needed (dizziness).Disp: 20 tabletRfl: 6 levothyroxine (LEVOXYL) 100 mcg tabletTake 1 tablet PO 5 days a week in AM and take 2 tablets PO 2 days a week. Take on empty stomach. For ThyroidDisp: 114 tabletRfl: 3 fluticasone-salmeterol (ADVAIR DISKUS) 100-50 mcg/dose inhalerInhale 1 Puff as instructed twice daily. Rinse mouth out after use with water.Disp: 180 EachRfl: 1 hydroCHLOROthiazide (HYDRODIURIL, ESIDRIX) 12.5 mg tabletTake 1 tablet by mouth once daily.Disp: 90 tabletRfl: 3 lisinopril (ZESTRIL, PRINIVIL) 20 mg tabletTake 1 tablet by mouth twice daily.Disp: 180 tabletRfl: 3 tamsulosin (FLOMAX) 0.4 mgTake 1 capsu (more content not included)... [facility] 10-11-2022 Miscellaneous Notes [facility] OUTREACH Provider Action/FYI: Patient calling to change his Cardiology appointment. Hello, you've reached [facility], my name is Pat Zhao RN, I'm a registered nurse, and we are on a recorded line. Patient identified by name and date of Spoke with patient Verify that the patient is a [facility] patient: Yes Are you having any symptoms today? No - What is the reason for call? Appointment Patient calling to change his Cardiology appointment on 10/21/22. Call Disposition: Managed by H@H RN Conferenced patient to Lorie in [facility] Cardiology office for appointment assistance. Thank you for calling [facility]. If you develop any new symptoms, your condition worsens, then GO TO THE EMERGENCY ROOM OR CALL 911. If you have any questions, please call us back. documented in this encounter [facility] 10-08-2022 Note Patient Outreach ([facility] GEORGE LEWIS ([id number]) 1940 M Date Time Provider Department 10/08/22 HUMBERTO WANG During your visit today, we recorded the following information about you: Humberto Wang RN 10/08/2022 10:26 AM Signed [facility] TELEPHONIC OUTREACH Provider Action/FYI: 2nd TO attempt Pharmacist was unable to reach patient after last call when patient said he had stopped his advair because he didn't need it. [facility] PHONE NUMBER . Spoke with the patient who reports that he is feeling very well and has no needs at this time. He walks through [facility] in bad weather to get exercise. He reports that he is taking his Advair bid now. Reminded him to rinse and spit after use. Reminded him of purpose of albuterol, which he has not needed to use lately. He occasionally has trouble getting his refills. Explained that if his bottles indicate that he has refills left he should ask to speak directly with a pharmacist. He did get Atenolol filled but had some difficulty doing so. Suggested he ask for 90 day supplies when he sees his PCP next month. Asthma Appointments for Next 60 Days Date Time Provider Location Dept Phone 10/21/2022 3:30 PM JOSE M KAY [facility] [phone] 10/25/2022 9:40 AM HUSAM DERAS [facility] [phone] Contact made with patient: Yes Patient identified by name and . Discussed care with patient It?s nice talking to you again. As a reminder, this is our bi-weekly check-in where I will be asking you questions about your health. This will only take a few minutes of your time. Is this a good time? Yes Symptoms What Chronic Disease(s) does the patient have: Asthma Do you check your blood pressures at home? No Do you have new or worse shortness of breath with activity? No Do you have new or worsening cough? No Do you have new or worsening wheezing? No Do you need to use your rescue (Albuterol) inhaler or nebulizer more often than normal? No Are you having any other symptoms that your PCP needs to know about? No Symptoms: none Symptom Escalation NEISHA Education Ordered -: No No mychart account The patient required an escalation for symptom(s)? No Medications Do you have any questions about taking your medication or which medications you should be on? No Do you need any medication refills at this time, including any of the medications you might take only when needed? No Social We would like to make sure you have what you need so that your basic needs are met- including your personal safety, food, housing and medications? Would you like to speak with a social work team coordinator to help give you support for any of these needs? No It can be normal to feel anxious or down during a time like this. Would you like to talk to a mental health professional about how you have been feeling? No Closing Thank you for taking the time to talk with me today. We want to work with you to ensure that we are keeping your medical condition(s) well-controlled and to keep you healthy and out of the doctor's office or hospital. It?s also not too late for me to sign you up for automated weekly questionnaires through [employer]. This is an easy way for us to stay connected each week. Are you interested? No, I understand. We can always sign you up in the future if you change your mind. Just as a reminder, will continue to call you every other week to check in on your health. Our calls should take 10-15 minutes or less. Remember, if you have concerns in between our calls, please call your PCP's office right away. Thank you. Enter next patient outreach date for two weeks on the same day of the week as today in the Track Pt Outreach and End outreach. Allergies As of Date: 10/08/2022 Noted Allergy Reaction LIPITOR (ATORVASTATIN) 08/16/2007 5 - Intolerance Comments: Severe leg cramps, stopped Date Reviewed: 10/07/2022 Reviewed by: Pat Zhao RN - Fully Assessed Reason for Visit: CDM [Other] Cmt: Telephonic outreach Prescriptions as of 10/08/2022 - atenolol (TENORMIN) 25 mg tablet Take 1 tablet by mouth once daily. - tamsulosin (FLOMAX) 0.4 mg TAKE ONE CAPSULE BY MOUTH ONCE DAILY AT BEDTIME - pravastatin (PRAVACHOL) 80 mg tablet Take 1 tablet by mouth once daily. - amLODIPine (NORVASC) 10 mg tablet Take 1 tablet by mouth once daily. - fluticasone-salmeterol (ADVAIR DISKUS) 100-50 mcg/dose inhaler Inhale 1 Puff as instructed twice daily. Rinse mouth out after use with water. - albuterol HFA (VENTOLIN HFA) 90 mcg/actuation inhaler Inhale 2 Puffs as instructed every 4 hours as needed for wheezing/shortness of breath. - cetirizine (ZYRTEC) 10 mg tablet Take 1 tablet by mouth once daily. - hydroCHLOROthiazide (HYDRODIURIL, ESIDRIX) 12.5 mg tablet Take 1 tablet by mouth once daily. - p (more content not included)... [facility] 10-08-2022 Note HNO ID: [id number] Author: Humberto Wang RN Service: ? Author Type: Registered Nurse Type: Progress Notes Filed: 10/08/2022 10:26 AM Note Text: [facility] TELEPHONIC OUTREACH Provider Action/FYI: 2nd TO attempt Pharmacist was unable to reach patient after last call when patient said he had stopped his advair because he didn't need it. [facility] PHONE NUMBER . Spoke with the patient who reports that he is feeling very well and has no needs at this time. He walks through [facility] in bad weather to get exercise. He reports that he is taking his Advair bid now. Reminded him to rinse and spit after use. Reminded him of purpose of albuterol, which he has not needed to use lately. He occasionally has trouble getting his refills. Explained that if his bottles indicate that he has refills left he should ask to speak directly with a pharmacist. He did get Atenolol filled but had some difficulty doing so. Suggested he ask for 90 day supplies when he sees his PCP next month. Asthma Appointments for Next 60 Days Date Time Provider Location Dept Phone 10/21/2022 3:30 PM JOSE M KAY [facility] [phone] 10/25/2022 9:40 AM HUSAM DERAS [facility] [phone] Contact made with patient: Yes Patient identified by name and . Discussed care with patient It?s nice talking to you again. As a reminder, this is our bi-weekly check-in where I will be asking you questions about your health. This will only take a few minutes of your time. Is this a good time? Yes Symptoms What Chronic Disease(s) does the patient have: Asthma Do you check your blood pressures at home? No Do you have new or worse shortness of breath with activity? No Do you have new or worsening cough? No Do you have new or worsening wheezing? No Do you need to use your rescue (Albuterol) inhaler or nebulizer more often than normal? No Are you having any other symptoms that your PCP needs to know about? No Symptoms: none Symptom Escalation NEISHA Education Ordered -: No No mychart account The patient required an escalation for symptom(s)? No Medications Do you have any questions about taking your medication or which medications you should be on? No Do you need any medication refills at this time, including any of the medications you might take only when needed? No Social We would like to make sure you have what you need so that your basic needs are met- including your personal safety, food, housing and medications? Would you like to speak with a social work team coordinator to help give you support for any of these needs? No It can be normal to feel anxious or down during a time like this. Would you like to talk to a mental health professional about how you have been feeling? No Closing Thank you for taking the time to talk with me today. We want to work with you to ensure that we are keeping your medical condition(s) well-controlled and to keep you healthy and out of the doctor's office or hospital. It?s also not too late for me to sign you up for automated weekly questionnaires through [employer]. This is an easy way for us to stay connected each week. Are you interested? No, I understand. We can always sign you up in the future if you change your mind. Just as a reminder, will continue to call you every other week to check in on your health. Our calls should take 10-15 minutes or less. Remember, if you have concerns in between our calls, please call your PCP's office right away. Thank you. Enter next patient outreach date for two weeks on the same day of the week as today in the Track Pt Outreach and End outreach. [facility] 10-08-2022 History of Present illness Narrative [facility] TELEPHONIC OUTREACH Provider Action/FYI: 2nd TO attempt Pharmacist was unable to reach patient after last call when patient said he had stopped his advair because he didn't need it. [facility] PHONE NUMBER . Spoke with the patient who reports that he is feeling very well and has no needs at this time. He walks through [facility] in bad weather to get exercise. He reports that he is taking his Advair bid now. Reminded him to rinse and spit after use. Reminded him of purpose of albuterol, which he has not needed to use lately. He occasionally has trouble getting his refills. Explained that if his bottles indicate that he has refills left he should ask to speak directly with a pharmacist. He did get Atenolol filled but had some difficulty doing so. Suggested he ask for 90 day supplies when he sees his PCP next month. Asthma Appointments for Next 60 Days Date Time Provider Location Dept Phone 10/21/2022 3:30 PM JOSE M KAY [facility] [phone] 10/25/2022 9:40 AM HUSAM DERAS [facility] [phone] Contact made with patient: Yes Patient identified by name and . Discussed care with patient It s nice talking to you again. As a reminder, this is our bi-weekly check-in where I will be asking you questions about your health. This will only take a few minutes of your time. Is this a good time? Yes Symptoms What Chronic Disease(s) does the patient have: Asthma Do you check your blood pressures at home? No Do you have new or worse shortness of breath with activity? No Do you have new or worsening cough? No Do you have new or worsening wheezing? No Do you need to use your rescue (Albuterol) inhaler or nebulizer more often than normal? No Are you having any other symptoms that your PCP needs to know about? No Symptoms: none Symptom Escalation NEISHA Education Ordered -: No No mychart account The patient required an escalation for symptom(s)? No Medications Do you have any questions about taking your medication or which medications you should be on? No Do you need any medication refills at this time, including any of the medications you might take only when needed? No Social We would like to make sure you have what you need so that your basic needs are met- including your personal safety, food, housing and medications? Would you like to speak with a social work team coordinator to help give you support for any of these needs? No It can be normal to feel anxious or down during a time like this. Would you like to talk to a mental health professional about how you have been feeling? No Closing Thank you for taking the time to talk with me today. We want to work with you to ensure that we are keeping your medical condition(s) well-controlled and to keep you healthy and out of the doctor's office or hospital. It s also not too late for me to sign you up for automated weekly questionnaires through [employer]. This is an easy way for us to stay connected each week. Are you interested? No, I understand. We can always sign you up in the future if you change your mind. Just as a reminder, will continue to call you every other week to check in on your health. Our calls should take 10-15 minutes or less. Remember, if you have concerns in between our calls, please call your PCP's office right away. Thank you. Enter next patient outreach date for two weeks on the same day of the week as today in the Track Pt Outreach and End outreach. documented in this encounter [facility] 10-07-2022 Note Patient Outreach (AM [facility]) GEORGE LEWIS ([id number]) 1940 M Date Time Provider Department 10/07/22 HUMBERTO WANG During your visit today, we recorded the following information about you: Humberto Wang RN 10/07/2022 1:44 PM Signed INSIGHT CDM TELEPHONIC OUTREACH Provider Action/FYI: Pharmacist was unable to reach patient after last call when patient said he had stopped his advair because he didn't need it. [facility] PHONE NUMBER . Left Asthma Appointments for Next 60 Days Date Time Provider Location Dept Phone 10/21/2022 3:30 PM JOSE M KAY [facility] [phone] 10/25/2022 9:40 AM HUSAM DERAS [facility] [phone] Contact made with patient: No - Left message Hello my name is Humberto Wang RN your Electronic Page Makeup System Operator from the [facility] I am calling today for your bi-weekly check in. I am sorry I missed your call. I will reach out to you again tomorrow. (if the third call I will reach out to you again next week) Enter next patient outreach date for the following using the Track Pt Outreach. End outreach. Allergies As of Date: 10/07/2022 Noted Allergy Reaction LIPITOR (ATORVASTATIN) 08/16/2007 5 - Intolerance Comments: Severe leg cramps, stopped Date Reviewed: 10/07/2022 Reviewed by: Pat Zhao RN - Fully Assessed Reason for Visit: CDM [Other] Cmt: Telephonic outreach Prescriptions as of 10/07/2022 - atenolol (TENORMIN) 25 mg tablet Take 1 tablet by mouth once daily. - tamsulosin (FLOMAX) 0.4 mg TAKE ONE CAPSULE BY MOUTH ONCE DAILY AT BEDTIME - pravastatin (PRAVACHOL) 80 mg tablet Take 1 tablet by mouth once daily. - amLODIPine (NORVASC) 10 mg tablet Take 1 tablet by mouth once daily. - fluticasone-salmeterol (ADVAIR DISKUS) 100-50 mcg/dose inhaler Inhale 1 Puff as instructed twice daily. Rinse mouth out after use with water. - albuterol HFA (VENTOLIN HFA) 90 mcg/actuation inhaler Inhale 2 Puffs as instructed every 4 hours as needed for wheezing/shortness of breath. - cetirizine (ZYRTEC) 10 mg tablet Take 1 tablet by mouth once daily. - hydroCHLOROthiazide (HYDRODIURIL, ESIDRIX) 12.5 mg tablet Take 1 tablet by mouth once daily. - pregabalin (LYRICA) 150 mg capsule Take 1 capsule by mouth twice daily for 90 days. - lisinopril (ZESTRIL, PRINIVIL) 20 mg tablet Take 1 tablet by mouth twice daily. - levothyroxine (LEVOXYL) 100 mcg tablet Take 1 tablet by mouth once daily. Daily in AM, Take on empty stomach. For Thyroid - meclizine (ANTIVERT) 25 mg tab Take 1 tablet by mouth every 6 hours as needed (dizziness). - meloxicam (MOBIC) 7.5 mg tablet Take 1 tablet by mouth once daily. for pain. Take with food. - psyllium Husk 0.52 gram capsule Take 0.52 g by mouth once daily. - docosahexaenoic acid/epa (FISH OIL ORAL) Take by mouth once daily. - ergocalciferol, vitamin D2, (VITAMIN D2 ORAL) Take by mouth once daily. - DAILY MULTI-VITAMIN ORAL Take by mouth once daily. - OTC PRODUCT Takes 1 spoonful of beet powder couple days a week - nitroglycerin sublingual (NITROQUICK) 0.4 mg SL tablet Dissolve 1 tablet under the tongue as needed. for chest pain,every 5 min x3 - aspirin, enteric coated 81 mg EC tablet Take 81 mg by mouth once daily. 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] 08/19/2007 CHRONIC AIRWAY OBSTRUCTION NEC [J44.9] 08/19/2007 BENIGN NEOPLASM LG BOWEL [D12.6] 02/01/2008 MIXED HYPERLIPIDEMIA [E78.2] 02/16/2008 Gynecomastia [N62] 07/20/2012 Shoulder pain, right [M25.511] 08/09/2012 Abnormal stress test [R94.39] 07/01/2014 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] 07/01/2014 PVC's (premature ventricular contractions) [I49*07/01/2014 Pain in joint, shoulder region [M25.519] 02/10/2015 Complete tear of right rotator cuff [M75.121] 09/02/2015 Obesity (BMI 30.0-34.9) [E66.9] 03/30/2017 10/20/2018 Coronary artery disease involving igiugig lau*10/18/2017 Obesity, Class I, BMI 30-34.9 [E66.9] 10/18/2017 Dizziness [R42] 12/19/2017 Elevated fasting glucose [R73.01] 12/19/2017 Allergic rhinitis due to allergen [J30.9] 12/19/2017 PAD (peripheral artery disease) (HCC) [I73.9] 03/16/2019 Pure hypercholesterolemia [E78.00] 04/20/2019 Chronic pain of both knees [M25.561, M25.562, G*04/20/2019 Pain of right lower extremity [M79.604] 10/23/2019 Benign nodular prostatic hyperplasia without lo* (more content not included)... [facility] 10-07-2022 Miscellaneous Notes [facility] OUTREACH Provider Action/FYI: Patient calling for a refill prescription of Meclizine 25 mg and Atenolol 25 mg to be sent to [facility] as listed in chart. Hello, you've reached [facility], my name is Pat Zhao RN, I'm a registered nurse, and we are on a recorded line. Patient identified by name and date of Spoke with patient Verify that the patient is a [facility] patient: Yes Are you having any symptoms today? No - What is the reason for call? Refill General Questions/Other Need Patient calling for a refill prescription of Meclizine 25 mg and Atenolol 25 mg to be sent to [facility] as listed in chart. Allergies checked. Patient also stated he had stopped taking the pregabalin 5 days after starting it on 07/21/22 due to increasing pain and went back to taking gabapentin. Dr. Deras not aware. Patient has an appointment next month. Call Disposition: Managed by H@H RN Routed to PCP Atenolol 25 mg showing 11 refills available. Called [facility] and they do have current prescription and it is ready for patient to tow picker. Patient aware and will tow picker prescription. Advised patient I will route refill request of Meclizine [address] Deras to refill. Also advised patient I will let Dr. Deras know he has been taking gabapentin instead of pregabalin. Patient expresses understanding and appreciation. Thank you for calling [facility]. If you develop any new symptoms, your condition worsens, then GO TO THE EMERGENCY ROOM OR CALL 911. If you have any questions, please call us back. documented in this encounter [facility] 10-07-2022 Note HNO ID: [id number] Author: Humberto Wang RN Service: ? Author Type: Registered Nurse Type: Progress Notes Filed: 10/07/2022 1:44 PM Note Text: INSIGHT CDM TELEPHONIC OUTREACH Provider Action/FYI: Pharmacist was unable to reach patient after last call when patient said he had stopped his advair because he didn't need it. [facility] PHONE NUMBER . Left VM Asthma Appointments for Next 60 Days Date Time Provider Location Dept Phone 10/21/2022 3:30 PM JOSE M KAY [phone] 10/25/2022 9:40 AM DERASHUSAM BLANC Ebony [facility] [phone] Contact made with patient: No - Left message Charly my name is Humberto Wang RN your Electronic Page Makeup System Operator from the [facility] I am calling today for your bi-weekly check in. I am sorry I missed your call. I will reach out to you again tomorrow. (if the third call I will reach out to you again next week) Enter next patient outreach date for the following day using the Track Pt Outreach. End outreach. [facility] 09-15-2022 Miscellaneous Notes First attempt at contacting patient, left VM. Please assist in rescheduling when he calls [facility] OUTREACH Provider Action/FYI: Patient would like to reschedule his appointment on 10/21/2022 @8:30am with Jose M Kay CNP. Patient declined to be conferenced to scheduling and is requesting a call back from cardiology office at preferred number . Patient denies any new or worsening symptoms for which a provider is unaware of at this time. Charly, you've reached [facility], my name is Judi Rodriguez, KEYA, I'm a registered nurse, and we are on a recorded line. Patient identified by name and date of Spoke with patient Verify that the patient is a [facility] patient: Yes Are you having any symptoms today? No - What is the reason for call? Appointment Call Disposition: Managed by H@H RN Routed to office Thank you for calling [facility]. If you develop any new symptoms, your condition worsens, then GO TO THE EMERGENCY ROOM OR CALL 911. If you have any questions, please call us back. documented in this encounter [facility] 09-14-2022 Note HNO ID: [id number] Author: Rosa Ohara Service: ? Author Type: ? Type: Progress Notes Filed: 09/14/2022 10:44 AM Note Text: POPULATION HEALTH NAVIGATION OUTREACH Action/FYI Spoke to patient and follow up scheduled. Pt identified by name and : YES, via phone Outreach Outcome/Action Spoke to patient or caregiver: Patient scheduled Did you use a PCP flex slot to schedule this appointment? No Reason for Outreach Community Monitoring Pool Payer: Payor: [employer] AND BLUE [employer]IELD / Plan: ANTHEM MEDIBLUE HMO / Product Type: HMO / Care Gap Reviewed:: Follow-up appointment Reminder: Reminder note to check Health Maintenance for items below Health Maintenance items due: SHINGRIX VACCINE(2 of 3) due on 03/11/2014 DEPRESSION ASSESSMENT due on 09/12/2022 Navigation Signature: Rosa Ohaar September 14, 2022 10:43 AM [facility] 09-14-2022 Miscellaneous Notes Pharmacy Community Monitoring Outreach Patient indicated a medication question during Chronic Disease Management (CDM) outreach. Encounter was routed to Pharmacy Medication Question Pool for follow up. Second attempt: Unable to reach patient after two attempts. No answer, left voicemail. No further attempts will be made at this time. If message left, advised patient reach out to PCP office with any immediate questions or concerns. Antwon Inman PharmD BCACP documented in this encounter [facility] 09-14-2022 History of Present illness Narrative POPULATION HEALTH NAVIGATION OUTREACH Action/FYI Spoke to patient and follow up scheduled. Pt identified by name and : YES, via phone Outreach Outcome/Action Spoke to patient or caregiver: Patient scheduled Did you use a PCP flex slot to schedule this appointment? No Reason for Outreach Community Monitoring Pool Payer: Payor: [employer] AND BLUE [employer]IELD / Plan: ANTHEM MEDIBLUE HMO / Product Type: HMO / Care Gap Reviewed:: Follow-up appointment Reminder: Reminder note to check Health Maintenance for items below Health Maintenance items due: SHINGRIX VACCINE(2 of 3) due on 03/11/2014 DEPRESSION ASSESSMENT due on 09/12/2022 Navigation Signature: Rosa Ohara September 14, 2022 10:43 AM POPULATION HEALTH NAVIGATION OUTREACH Action/I 1st attempt - voicemail message left offering to schedule 3-mo follow up appt (around 10/21/22). Postponing 2 days. Insight/CDM appt needed for: appt in October Pt identified by name and : NO Outreach Outcome/Action Unable to reach patient: Left message Did you use a PCP flex slot to schedule this appointment? N/A Reason for Outreach Community [facility] Payer: Payor: IVON [employer] / Plan: ANTHEM MEDIBLFiiiling HMO / Product Type: HMO / Care Gap Reviewed:: Follow-up appointment Reminder: Reminder note to check Health Maintenance for items below Health Maintenance items due: SHINGRIX VACCINE(2 of 3) due on 03/11/2014 Navigation Signature: Lauren Dexter MA September 10, 2022 2:13 PM INSIGHT CDM TELEPHONIC OUTREACH Provider Action/I: Spoke with the patient who reports that he is feeling well. He mentioned that he stopped taking Advair because I don't need it. Explained that it is a maintenance inhaler to help prevent him from having problems. I convinced him to accept a call from our pharmacist to discuss this further. Reminded him of the availability of the nurses at [facility] PHONE NUMBER . Pended refill for atenolol. Sent message to schedulers to call to arrange next appointment in [facility] in October. Asthma Appointments for Next 60 Days Date Time Provider Location Dept Phone 10/21/2022 8:30 AM JOSE M KAY [facility] [phone] Contact made with patient: Yes Patient identified by name and . Discussed care with patient It s nice talking to you again. As a reminder, this is our bi-weekly check-in where I will be asking you questions about your health. This will only take a few minutes of your time. Is this a good time? Yes Symptoms What Chronic Disease(s) does the patient have: COPD Do you check your blood pressures at home? No Do you have new or worse shortness of breath with activity? No Do you have new or worsening cough? No Do you have new or worsening wheezing? No Do you need to use your rescue (Albuterol) inhaler or nebulizer more often than normal? No Are you having any other symptoms that your PCP needs to know about? No Symptoms: Symptom Escalation NEISHA Education Ordered -: No not active on [employer]. The patient required an escalation for symptom(s)? No Medications Do you have any questions about taking your medication or which medications you should be on? Yes - Patient would like to speak to a pharmacist. Route encounter to RX 4C MEDICATION QUESTION pool [[id number]} and indicate reason for referral in the FYI box. Do you need any medication refills at this time, including any of the medications you might take only when needed? No Social We would like to make sure you have what you need so that your basic needs are met- including your personal safety, food, housing and medications? Would you like to speak with a social work team coordinator to help give you support for any of these needs? No It can be normal to feel anxious or down during a time like this. Would you like to talk to a mental health professional about how you have been feeling? No Closing Thank you for taking the time to talk with me today. We want to work with you to ensure that we are keeping your medical condition(s) well-controlled and to keep you healthy and out of the doctor's office or hospital. It s also not too late for me to sign you up for automated weekly questionnaires through [employer]. This is an easy way for us to stay connected each week. Are you interested? No, I understand. We can always sign you up in the future if you change your mind. Just as a reminder, will continue to call you every other week to check in on your health. Our calls should take 10-15 minutes or less. Remember, if you have concerns in between our calls, please call your PCP's office right away. Thank you. Enter next patient outreach date for two weeks on the same day of the week as today in the Track Pt Outreach and End outreach. Pharmacy Community Monitoring Outreach Patient indicated a medication question during Chronic Disease Management (CDM) outreach. Encounter was routed to Pharmacy Medication Question Pool for follow up. First attempt: No answer, left voicemail. Advised patient reach out to PCP office with any immediate questions or concerns. Les Olivares RPh September 10, 2022 2:46 PM documented in this encounter [facility] 09-10-2022 Note HNO ID: [id number] Author: Lauren Dexter MA Service: ? Author Type: Manager Internship Type: Progress Notes Filed: 09/10/2022 2:16 PM Note Text: POPULATION HEALTH NAVIGATION OUTREACH Action/FYI 1st attempt - voicemail message left offering to schedule 3-mo follow up appt (around 10/21/22). Postponing 2 days. Insight/CDM appt needed for: appt in October Pt identified by name and : NO Outreach Outcome/Action Unable to reach patient: Left message Did you use a PCP flex slot to schedule this appointment? N/A Reason for Outreach Community [facility] Payer: Payor: IVON [employer] / Plan: ANTHEM MEDIBLUE HMO / Product Type: HMO / Care Gap Reviewed:: Follow-up appointment Reminder: Reminder note to check Health Maintenance for items below Health Maintenance items due: SHINGRIX VACCINE(2 of 3) due on 03/11/2014 Navigation Signature: Lauren Dexter MA September 10, 2022 2:13 PM [facility] 09-10-2022 Note Patient Outreach (AM [facility]) GEORGE LEWIS ([id number]) 1940 M Date Time Provider Department 09/10/22 HUMBERTO WANG [facility] During your visit today, we recorded the following information about you: Les Olivares [facility] 09/10/2022 2:47 PM Signed Pharmacy Community Monitoring Outreach Patient indicated a medication question during Chronic Disease Management (CDM) outreach. Encounter was routed to Pharmacy Medication Question Pool for follow up. First attempt: No answer, left voicemail. Advised patient reach out to PCP office with any immediate questions or concerns. Les Olivares, [facility] September 10, 2022 2:46 PM Humberto Wang, RN 09/10/2022 1:49 PM Signed INSIGHT CDM TELEPHONIC OUTREACH Provider Action/FYI: Spoke with the patient who reports that he is feeling well. He mentioned that he stopped taking Advair because I don't need it. Explained that it is a maintenance inhaler to help prevent him from having problems. I convinced him to accept a call from our pharmacist to discuss this further. Reminded him of the availability of the nurses at [facility] PHONE NUMBER . Pended refill for atenolol. Sent message to schedulers to call to arrange next appointment in [place] in October. Asthma Appointments for Next 60 Days Date Time Provider Location Dept Phone 10/21/2022 8:30 AM JOSE M KAY [facility] C [phone] Contact made with patient: Yes Patient identified by name and . Discussed care with patient It?s nice talking to you again. As a reminder, this is our bi-weekly check-in where I will be asking you questions about your health. This will only take a few minutes of your time. Is this a good time? Yes Symptoms What Chronic Disease(s) does the patient have: COPD Do you check your blood pressures at home? No Do you have new or worse shortness of breath with activity? No Do you have new or worsening cough? No Do you have new or worsening wheezing? No Do you need to use your rescue (Albuterol) inhaler or nebulizer more often than normal? No Are you having any other symptoms that your PCP needs to know about? No Symptoms: Symptom Escalation NEISHA Education Ordered -: No not active on mychart. The patient required an escalation for symptom(s)? No Medications Do you have any questions about taking your medication or which medications you should be on? Yes - Patient would like to speak to a pharmacist. Route encounter to RX MEDICATION QUESTION pool [[id number]} and indicate reason for referral in the box. Do you need any medication refills at this time, including any of the medications you might take only when needed? No Social We would like to make sure you have what you need so that your basic needs are met- including your personal safety, food, housing and medications? Would you like to speak with a social work team coordinator to help give you support for any of these needs? No It can be normal to feel anxious or down during a time like this. Would you like to talk to a mental health professional about how you have been feeling? No Closing Thank you for taking the time to talk with me today. We want to work with you to ensure that we are keeping your medical condition(s) well-controlled and to keep you healthy and out of the doctor's office or hospital. It?s also not too late for me to sign you up for automated weekly questionnaires through [employer]. This is an easy way for us to stay connected each week. Are you interested? No, I understand. We can always sign you up in the future if you change your mind. Just as a reminder, will continue to call you every other week to check in on your health. Our calls should take 10-15 minutes or less. Remember, if you have concerns in between our calls, please call your PCP's office right away. Thank you. Enter next patient outreach date for two weeks on the same day of the week as today in the Track Pt Outreach and End outreach. Lauren Dexter MA 09/10/2022 2:16 PM Signed POPULATION HEALTH NAVIGATION OUTREACH Action/ attempt - voicemail message left offering to schedule 3-mo follow up appt (around 10/21/22). Postponing 2 days. Insight/CDM appt needed for: appt in October Pt identified by name and : NO Outreach Outcome/Action Unable to reach patient: Left message Did you use a PCP flex slot to schedule this appointment? N/A Reason for Outreach Community [facility] Payer: Payor: IVON [employer] AND BLUE SHIELD / Plan: IVON AYALA HMO / Product Type: HMO / Care Gap Reviewed:: Follow-up appointment Reminder: Reminder note to check Health Maintenance for items below Health Maintenance items due: SHINGRIX VACCINE(2 of 3) due on 03/11/2014 Navigation Signature: Lauren Dexter MA September 10, 2022 2:13 PM Rosa Lev 09/14/2022 10:44 (more content not included)... [facility] 09-10-2022 Note HNO ID: [id number] Author: Humberto Wang RN Service: ? Author Type: Registered Nurse Type: Progress Notes Filed: 09/10/2022 1:49 PM Note Text: INSIGHT CDM TELEPHONIC OUTREACH Provider Action/FYI: Spoke with the patient who reports that he is feeling well. He mentioned that he stopped taking Advair because I don't need it. Explained that it is a maintenance inhaler to help prevent him from having problems. I convinced him to accept a call from our pharmacist to discuss this further. Reminded him of the availability of the nurses at [facility] PHONE NUMBER . Pended refill for atenolol. Sent message to schedulers to call to arrange next appointment in [place] in October. Asthma Appointments for Next 60 Days Date Time Provider Location Dept Phone 10/21/2022 8:30 AM JOSE M KAY [facility] C [phone] Contact made with patient: Yes Patient identified by name and . Discussed care with patient It?s nice talking to you again. As a reminder, this is our bi-weekly check-in where I will be asking you questions about your health. This will only take a few minutes of your time. Is this a good time? Yes Symptoms What Chronic Disease(s) does the patient have: COPD Do you check your blood pressures at home? No Do you have new or worse shortness of breath with activity? No Do you have new or worsening cough? No Do you have new or worsening wheezing? No Do you need to use your rescue (Albuterol) inhaler or nebulizer more often than normal? No Are you having any other symptoms that your PCP needs to know about? No Symptoms: Symptom Escalation NEISHA Education Ordered -: No not active on mychart. The patient required an escalation for symptom(s)? No Medications Do you have any questions about taking your medication or which medications you should be on? Yes - Patient would like to speak to a pharmacist. Route encounter to RX 4C MEDICATION QUESTION pool [[id number]} and indicate reason for referral in the FYI box. Do you need any medication refills at this time, including any of the medications you might take only when needed? No Social We would like to make sure you have what you need so that your basic needs are met- including your personal safety, food, housing and medications? Would you like to speak with a social work team coordinator to help give you support for any of these needs? No It can be normal to feel anxious or down during a time like this. Would you like to talk to a mental health professional about how you have been feeling? No Closing Thank you for taking the time to talk with me today. We want to work with you to ensure that we are keeping your medical condition(s) well-controlled and to keep you healthy and out of the doctor's office or hospital. It?s also not too late for me to sign you up for automated weekly questionnaires through [employer]. This is an easy way for us to stay connected each week. Are you interested? No, I understand. We can always sign you up in the future if you change your mind. Just as a reminder, will continue to call you every other week to check in on your health. Our calls should take 10-15 minutes or less. Remember, if you have concerns in between our calls, please call your PCP's office right away. Thank you. Enter next patient outreach date for two weeks on the same day of the week as today in the Track Pt Outreach and End outreach. [facility] 09-10-2022 Note HNO ID: [id number] Author: Les Olivares RPh Service: ? Author Type: Pharmacist Type: Progress Notes Filed: 09/10/2022 2:47 PM Note Text: Pharmacy Community Monitoring Outreach Patient indicated a medication question during Chronic Disease Management (CDM) outreach. Encounter was routed to Pharmacy Medication Question Pool for follow up. First attempt: No answer, left voicemail. Advised patient reach out to PCP office with any immediate questions or concerns. Les Olivares RPh September 10, 2022 2:46 PM [facility] 07-29-2022 History of Present illness Narrative INSIGHT CDM TELEPHONIC OUTREACH Provider Action/FYI: Spoke with the patient who reports that he is feeling well and has no needs at this time. Gave him the HEALTHY AT HOME PHONE NUMBER because he had misplaced it, and explained the hours of availability. He understands to call PCP office with any concerns. Asthma Contact made with patient: Yes Patient identified by name and . Discussed care with patient It s nice talking to you again. As a reminder, this is our bi-weekly check-in where I will be asking you questions about your health. This will only take a few minutes of your time. Is this a good time? Yes Symptoms What Chronic Disease(s) does the patient have: COPD Do you check your blood pressures at home? No Do you have new or worse shortness of breath with activity? No Do you have new or worsening cough? No Do you have new or worsening wheezing? No Do you need to use your rescue (Albuterol) inhaler or nebulizer more often than normal? No Are you having any other symptoms that your PCP needs to know about? No Symptom Escalation The patient required an escalation for symptom(s)? No Medications Do you have any questions about taking your medication or which medications you should be on? No Do you need any medication refills at this time, including any of the medications you might take only when needed? No Social We would like to make sure you have what you need so that your basic needs are met- including your personal safety, food, housing and medications? Would you like to speak with a social work team coordinator to help give you support for any of these needs? No It can be normal to feel anxious or down during a time like this. Would you like to talk to a mental health professional about how you have been feeling? No Closing Thank you for taking the time to talk with me today. We want to work with you to ensure that we are keeping your medical condition(s) well-controlled and to keep you healthy and out of the doctor's office or hospital. It s also not too late for me to sign you up for automated weekly questionnaires through [employer]. This is an easy way for us to stay connected each week. Are you interested? No, I understand. We can always sign you up in the future if you change your mind. Just as a reminder, will continue to call you every other week to check in on your health. Our calls should take 10-15 minutes or less. Remember, if you have concerns in between our calls, please call your PCP's office right away. Thank you. Enter next patient outreach date for two weeks on the same day of the week as today in the Track Pt Outreach and End outreach. documented in this encounter [facility] 07-22-2022 History of Present illness Narrative INSIGHT CDM TELEPHONIC OUTREACH Provider Action/FYI: CDM call deferred because patient had appointment in Family medicine yesterday. Contact made with patient: No - Unable to leave message Entered next patient outreach date for the following business , if third call please enter next outreach date for one week in the Track Pt. Outreach - End Outreach documented in this encounter [facility] 07-21-2022 History of Present illness Narrative Chief Complaint Patient presents with: Follow Up HPI George Lewis is a 81 year old male who presents here today for Above Complaints. George is an established patient of Dr. Deras, and myself. Concerns today.. Follow-up of routine chronic conditions. No concerns or complaints today. Would like flu and COVID vaccines today. Hypothyroidism -- Levothyroxine 100 mcg daily. Willing to get blood work today to check thyroid levels. Has been slowly needing to increase levothyroxine dosage over the past year. Pt denies any hypothyroid symptoms currently -- pt feels dosage is working well compared to prior symptoms when levels out of normal range. HTN-- On lisinopril and amlodipine and HCTZ He states compliant with current blood pressure medication(s). He denies chest pain, shortness of breath, palpitations, dizziness, leg edema, headaches, or vision changes. Cholescystectomy-- A few months ago had successful cholecystectomy surgery at [facility]. No complications. Took about a month to control diet changes but has a good control over diet now. Osteoarthritis in bilateral knees- -- Follows with GENIE Sprague for this. Had injections on 06/28/22. Pt reports these injections are not working well. Not lasting as long as long as they used to. Neuropathy pain -- Bilateral numbness/tingling in feet and up heard to knees. On Gabapentin 400 mg TID -- pt reports this does not do anything anymore, especially at night. Taking gabapentin as needed more than 3x daily. But needing every night, sometimes 2x per night. Recent PVR testing about 1 month ago - moderate PAD, RIAN of 0.72 and 0.84. Follows with vascular team, Dr. Machuca. Recommended continued walking and follow-up in 6 months - no need for surgery per vascular team. No other concerns or complaints. Past medical history, appointments, medications, allergies reviewed. 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 Murray PAST SURGICAL HISTORY OF 1980 Bilateral shoulder surgery post trauma Family History FAMILY HISTORY Problem Relation Age of Onset Colon Cancer Mother before age 60 (pt unsure) Coronary Artery Disease Father of presumed CA; heavy drinker Alcohol/Drug Father Prostate Cancer Other none Diabetes Other none Patient Allergies ALLERGIES Allergen Reactions Lipitor [Atorvastat* Intolerance Severe leg cramps, stopped Current Medications Current Outpatient Medications on File Prior to Visit Medication Sig lisinopril (ZESTRIL, PRINIVIL) 20 mg tablet Take 1 tablet by mouth twice daily. amLODIPine (NORVASC) 10 mg tablet Take 1 tablet by mouth once daily. gabapentin (NEURONTIN) 400 mg capsule Take 1 capsule by mouth three times daily for 30 days. fluticasone-salmeterol (ADVAIR DISKUS) 100-50 mcg/dose inhaler Inhale 1 Puff as instructed twice daily. Rinse mouth out after use with water. albuterol HFA (VENTOLIN HFA) 90 mcg/actuation inhaler Inhale 2 Puffs as instructed every 4 hours as needed for wheezing/shortness of breath. levothyroxine (LEVOXYL) 100 mcg tablet Take 1 tablet by mouth once daily. Daily in AM, Take on empty stomach. For Thyroid tamsulosin (FLOMAX) 0.4 mg TAKE ONE CAPSULE BY MOUTH ONCE DAILY AT BEDTIME atenolol (TENORMIN) 25 mg tablet Take 1 tablet by mouth once daily. cetirizine (ZYRTEC) 10 mg tablet Take 1 tablet by mouth once daily. hydroCHLOROthiazide (HYDRODIURIL, ESIDRIX) 12.5 mg tablet Take 1 tablet by mouth once daily. meclizine (ANTIVERT) 25 mg tab Take 1 tablet by mouth every 6 hours as needed (dizziness). meloxicam (MOBIC) 7.5 mg tablet Take 1 tablet by mouth once daily. for pain. Take with food. pravastatin (PRAVACHOL) 80 mg tablet Take 1 tablet by mouth once daily. psyllium Husk 0.52 gram capsule Take 0.52 g by mouth once daily. docosahexaenoic acid/epa (FISH OIL ORAL) Take by mouth once daily. ergocalciferol, vitamin D2, (VITAMIN D2 ORAL) Take by mouth once daily. DAILY MULTI-VITAMIN ORAL Take by mouth once daily. OTC PRODUCT Takes 1 spoonful of beet powder couple days a week nitroglycerin sublingual (NITROQUICK) 0.4 mg SL tablet Dissolve 1 tablet under the tongue as needed. for chest pain,every 5 min x3 aspirin, enteric coated 81 mg EC tablet Take 81 mg by mouth once daily. Current Facility-Administered Medications on File Prior to Visit Medication perflutren lipid microspheres 1.3 mL in NaCl (PF) 0.9% 10 mL injection (DEFINITY) sodium chloride 0.9 % (flush) 10 mL (BD POSIFLUSH) Social History Social History Tobacco Use Smoking status: Former Types: Cigarettes Quit date: 09/12/1989 Years since quittin.8 Smokeless tobacco: Never Vaping Use Vaping Use: Never used Substance Use Topics Alcohol use: No Drug use: No REVIEW OF SYSTEMS: as above Reviewed relevant PMHx, PSHx, Social Hx, current medications and allergies. Review of Symptoms REVIEW OF SYSTEMS See HPI. All other systems are negative. EXAM: BP 110/60 (BP Site: Left Arm, BP Position: Sitting, BP Cuff Size: Regular Adult) Pulse 62 Resp 18 Wt 98 kg (216 lb) BMI 30.99 kg/m General Appearance: Well appearing, alert, in no acute distress, well-hydrated, well nourished.. Skin: Skin color, texture, turgor normal, no suspicious rashes or lesions. Head: Normocephalic, no masses, lesions, tenderness or abnormalities. Neck: Supple, no adenopathy; thyroid symmetric, normal size, no bruits. Back:no pain to palpation of vertebrae, good flexion and extension, good range of motion, no muscle tenderness, reflexes are 2+ and symmetric, motor and sensory appear to be normal, negative SLR test, no evidence of scoliosis Lungs: Lungs clear to auscultation. No wheezing, rhonchi, rales.. Heart: RRR without murmur, gallop, or rubs. No ectopy. Abdomen: Normal abdominal exam, Abdomen soft, non-tender. Bowel sounds normal. No masses, organomegaly. Extremities: No deformities, edema, skin discoloration, clubbing or cyanosis. Good capillary refill. . Musculoskeletal: No joint swelling, deformity, or tenderness. Peripheral Pulses: Normal. Neurologic: Gait normal. Reflexes normal and symmetric. Sensation grossly intact.. Health Maintenance List SHINGRIX VACCINE(2 of 3) due on 03/11/2014 COVID-19 VACCINE(4 - Booster for Pfizer series) due on 09/03/2021 DEPRESSION ASSESSMENT Never done INFLUENZA(1) due on 05/13/2022 BP CONTROLLED (<130/80) due on 07/21/2022 LDL CHOLESTEROL due on 07/21/2022 DTAP,TDAP,TD(1 - Tdap) due on 12/21/2022 ANNUAL PCP TEAM CHRONIC DISEASE VISIT due on 04/14/2023 DIABETES SCREEN due on 12/21/2024 SPIROMETRY Completed PNEUMOCOCCAL: 65+ Completed ADVANCE DIRECTIVE DISCUSSION Discontinued ASSESSMENT/PLAN: 1. Numbness and tingling of foot - ICD9: 782.0, ICD10: R20.0, R20.2 (primary diagnosis) Moderate PAD versus neuropathy. Vascular team recommended no surgery for recent PVR, routine exercise/walking and follow-up in 6 months. Trial lyrica versus gabapentin to see if that helps. Gabapentin seemed to help in the past just not anymore. - PREGABALIN 150 MG CAPSULE 2. Essential hypertension - ICD9: 401.9, ICD10: I10 - good control - Continue current medication(s) - Encouraged dietary sodium restriction/DASH diet - Recommended regular aerobic exercise. - Recommend home blood pressure monitoring, to bring results in on next visit - Goal of BP <130/80 - Recommend home or pharmacy blood pressure monitoring - Recommended no refined sugar, low refined starch, healthy oil intake (olive oil), healthy protein (fish) along the lines of the Mediterranean diet. 3. Hypothyroidism, unspecified type - ICD9: 244.9, ICD10: E03.9 - Instructed patient on importance of taking on an empty stomach either first thing in the morning or at bedtime. - check TSH, free T4, and T3 today - continue current dose of Synthroid 0.100 mg 4. Benign nodular prostatic hyperplasia without lower urinary tract symptoms - ICD9: 600.10, ICD10: N40.0 Stable. Well controlled. Continue current regimen. - TAMSULOSIN 0.4 MG CAPSULE 5. Pure hypercholesterolemia - ICD9: 272.0, ICD10: E78.00 Stable. Well controlled. Refilled. - PRAVASTATIN 80 MG TABLET 6. Encounter for immunization - ICD9: V03.89, ICD10: Z23 - INFLUENZA SEASONAL QUADRIVALENT HIGH DOSE AGE 65+ - Zentyal-sezmi COVID-19 BIVALENT BOOSTER VACCINE, AGE 12+ YR 7. Restrictive airway disease - ICD9: 518.89, ICD10: J98.4 Stable. Well controlled. Refilled. - FLUTICASONE 100 MCG-SALMETEROL 50 MCG/DOSE BLISTR POWDR FOR INHALATION - ALBUTEROL SULFATE HFA 90 MCG/ACTUATION AEROSOL INHALER 8. Seasonal allergic rhinitis due to other allergic trigger - ICD9: 477.8, ICD10: J30.89 Stable. Well controlled. Refilled. - CETIRIZINE 10 MG TABLET 9. Mixed hyperlipidemia - ICD9: 272.2, ICD10: E78.2 - to be determined upon return of lab results - Continue current medication. 10. Chronic pain of both knees - ICD9: 719.46, 338.29, ICD10: M25.561, M25.562, G89.29 See above. Switch from gabapentin to lyrica. Continue with ortho and injections. RTO in 3 months, sooner if needed. Prescription instructions reviewed with patient as applicable. Potential red flag symptoms discussed with the patient. Reviewed appropriate action plan to take if red flag symptoms occur. Patient agreeable to treatment plan. Fernanda Santos APRN.CNP [address] [place] [address] documented in this encounter [facility] 06-28-2022 History of Present illness Narrative Associated Order(s): Large Joint Arthro/Inj: bilateral knee joints Post-Procedure Diagnose(s): Primary osteoarthritis of both knees Large Joint Arthro/Inj: bilateral knee joints Informed Consent Consent Obtained: Verbal [place] Protocol A moment to CARE was completed. SIGN IN Sign in communication not applicable due to emergent procedure. Personnel directly involved with the procedure wore the appropriate PPE. Special Equipment: N/A Patient/Surrogate Stated/Verified: Patient name, Date of , Relevant allergies and Intended procedure TIME OUT Intended patient and procedure match the source document(s). Consent documented and matches the intended procedure. Relevant labs, photos, and/or imaging studies have been reviewed. Correct side/site marked and visible. Medications required for procedure verified. No fire risk assessment and interventions applicable. No implant(s) inserted. 06/28/2022 1:28 PM The procedure site was prepped in the usual sterile fashion. Site: bilateral knee joints Medications (Right): 20 mg sodium hyaluronate 10 mg/mL(mw 2.4 -3.6 million) Medications (Left): 20 mg sodium hyaluronate 10 mg/mL(mw 2.4 -3.6 million) Outcome: Tolerated well, no immediate complications Post-injection instructions were reviewed with the patient and the patient voiced understanding of these instructions. SIGN OUT Post-procedure follow-up management communicated and Plan of Care Visit completed when applicable, bilateral Patient presents with: Left Knee - Established Patient, Injections Right Knee - Established Patient, Injections: Euflexxa Injection #3 AMB ROOMING INTAKE FLOWSHEET DATA Patient is here today for Euflexxa injection #3 today in bilateral knees. Patient states he is not having pain today. LOT # [id number] EXP 2023-04-29 Caitlin Lim RN documented in this encounter [facility] 06-25-2022 History of Present illness Narrative [facility] TELEPHONIC OUTREACH Provider Action/FYI: Contact made with patient: No - Left message Charly my name is Yasmin Marquez RN your Electronic Page Makeup System Operator from the [facility] I am calling today for your bi-weekly check in. I am sorry I missed your call. I will reach out to you again tomorrow. (if the third call I will reach out to you again next week) Enter next patient outreach date for the following business day using the Track Pt Outreach. End outreach. documented in this encounter [facility] 06-24-2022 History of Present illness Narrative [facility] TELEPHONIC OUTREACH Provider Action/FYI: Contact made with patient: No - Left message Charly my name is Yasmin Marquez RN your Electronic Page Makeup System Operator from the [facility] I am calling today for your bi-weekly check in. I am sorry I missed your call. I will reach out to you again tomorrow. (if the third call I will reach out to you again next week) Enter next patient outreach date for the following business day using the Track Pt Outreach. End outreach. documented in this encounter [facility] 06-17-2022 History of Present illness Narrative [facility] TELEPHONIC OUTREACH Provider Action/FYI: Contact made with patient: No - Left message Heljunie my name is Yasmin Marquez RN your Electronic Page Makeup System Operator from the [facility] I am calling today for your bi-weekly check in. I am sorry I missed your call. I will reach out to you again tomorrow. (if the third call I will reach out to you again next week) Enter next patient outreach date for the following business day using the Track Pt Outreach. End outreach. documented in this encounter [facility] 06-16-2022 Miscellaneous Notes Mena Machuca, DO MARCELINO Parker; [facility] His PVRs are a little bit better. Would recommend continued walking and exercising as he is able. Carotids are stable, no need for surgery at this time. I would recommend that he see me in 6 months Called patient left message with providers message Advised to call office with questions Patient was unaware they were scheduled for testing in [place] with same day follow up in [place]. Patient requesting to be called with testing results. documented in this encounter [facility] 06-16-2022 History of Present illness Narrative INSIGHT CDM TELEPHONIC OUTREACH Provider Action/FYI: Contact made with patient: No - Left message Heljunie my name is Yasmin Marquez RN your Electronic Page Makeup System Operator from the [facility] I am calling today for your bi-weekly check in. I am sorry I missed your call. I will reach out to you again tomorrow. (if the third call I will reach out to you again next week) Enter next patient outreach date for the following business day using the Track Pt Outreach. End outreach. documented in this encounter [facility] 06-14-2022 History of Present illness Narrative Euflexxa injection into bilateral knees LOT # [id number] EXP 04/29/2023 Rosa Yuan Ma Associated Order(s): Large Joint Arthro/Inj: bilateral knee joints Post-Procedure Diagnose(s): Primary osteoarthritis of both knees Large Joint Arthro/Inj: bilateral knee joints Informed Consent Consent Obtained: Verbal [place] Protocol A moment to CARE was completed. SIGN IN Sign in communication not applicable due to emergent procedure. Personnel directly involved with the procedure wore the appropriate PPE. Special Equipment: N/A Patient/Surrogate Stated/Verified: Patient name, Date of , Relevant allergies and Intended procedure TIME OUT Intended patient and procedure match the source document(s). Consent documented and matches the intended procedure. Relevant labs, photos, and/or imaging studies have been reviewed. Correct side/site marked and visible. Medications required for procedure verified. No fire risk assessment and interventions applicable. No implant(s) inserted. 06/14/2022 1:48 PM The procedure site was prepped in the usual sterile fashion. Site: bilateral knee joints Medications (Right): 20 mg sodium hyaluronate 10 mg/mL(mw 2.4 -3.6 million) Medications (Left): 20 mg sodium hyaluronate 10 mg/mL(mw 2.4 -3.6 million) Outcome: Tolerated well, no immediate complications Post-injection instructions were reviewed with the patient and the patient voiced understanding of these instructions. SIGN OUT Post-procedure follow-up management communicated and Plan of Care Visit completed when applicable AMB ROOMING INTAKE FLOWSHEET DATA Risk Screening Do you have concerns about personal safety or safety in the home?: No documented in this encounter [facility] 06-09-2022 History of Present illness Narrative INSIGHT CDM TELEPHONIC OUTREACH Provider Action/FYI: Contact made with patient: No - Left message Charly my name is Yasmin Marquez RN your Electronic Page Makeup System Operator from the [facility] I am calling today for your bi-weekly check in. I am sorry I missed your call. I will reach out to you again tomorrow. (if the third call I will reach out to you again next week) Enter next patient outreach date for the following business day using the Track Pt Outreach. End outreach. documented in this encounter [facility] 06-08-2022 History of Present illness Narrative INSIGHT CDM TELEPHONIC OUTREACH Provider Action/FYI: Contact made with patient: No - Left message Hello my name is Yasmin Marquez RN your Electronic Page Makeup System Operator from the [facility] I am calling today for your bi-weekly check in. I am sorry I missed your call. I will reach out to you again tomorrow. (if the third call I will reach out to you again next week) Enter next patient outreach date for the following business day using the Track Pt Outreach. End outreach. documented in this encounter [facility] 05-25-2022 Miscellaneous Notes Called patient. Verified name and date of . Patient informed an appointment is already scheduled for him to see provider, Seble, on May 31, 2022 at 1130 with arrival time of 1115. Verbalizes understanding. Eden Preciado LPN Patient called. Verified name and date of . Pateint calling wanting to know what he is supposed to do about the pain he is having. States he cannot walk to the mailbox and is unclear what plan of care is. Eden Preciado LPN documented in this encounter [facility] 05-20-2022 History of Present illness Narrative Called and spoke with patient over the phone. Informed him that there were some additional questions that needed to be answered before his request for viscosupplementation could be process. Patient states that gel injections are very helpful, they usually last him and provide him full relief, no pain, for close to 1 year. His last round of viscosupplementation was in September 2021. In addition to the gel injections he uses Voltaren gel at night which does help relieve some of the pain but not as much as the viscosupplementation. His pain returned a few weeks ago, he estimates maybe 2 to 3 weeks ago. Pain today is a 5 out of 10 aching. documented in this encounter [facility] 05-11-2022 History of Present illness Narrative PRIMARY CARE COORDINATION QUICK NOTE Provider Action/FYI Pt given the new [facility] phone number and explained the purpose of the number. [phone] Patient identified by name and date . documented in this encounter [facility] 05-04-2022 History of Present illness Narrative PRIMARY CARE COORDINATION QUICK NOTE Provider Action/FYI Left message for pt to call back for the [facility] phone number. documented in this encounter [facility] 04-26-2022 History of Present illness Narrative [facility] TELEPHONIC OUTREACH Provider Action/FYI: Contact made with patient: No - Left message Charly my name is Yasmin Marquez RN your Electronic Page Makeup System Operator from the [facility] I am calling today for your bi-weekly check in. I am sorry I missed your call. I will reach out to you again tomorrow. (if the third call I will reach out to you again next week) Enter next patient outreach date for the following business day using the Track Pt Outreach. End outreach. documented in this encounter [facility] 04-20-2022 History of Present illness Narrative [facility] TELEPHONIC OUTREACH Provider Action/FYI: Contact made with patient: No - Left message Charly my name is Yasmin Marquez RN your Electronic Page Makeup System Operator from the [facility] I am calling today for your bi-weekly check in. I am sorry I missed your call. I will reach out to you again tomorrow. (if the third call I will reach out to you again next week) Enter next patient outreach date for the following business day using the Track Pt Outreach. End outreach. documented in this encounter [facility] 04-19-2022 History of Present illness Narrative [facility] TELEPHONIC OUTREACH Provider Action/FYI: Contact made with patient: No - Left message Charly my name is Yasmin Marquez RN your Electronic Page Makeup System Operator from the [facility] I am calling today for your bi-weekly check in. I am sorry I missed your call. I will reach out to you again tomorrow. (if the third call I will reach out to you again next week) Enter next patient outreach date for the following business day using the Track Pt Outreach. End outreach. documented in this encounter [facility] documented as of this encounter (statuses as of 07/21/2023) [facility] History of Past illness Narrative* Problem Noted Date Diagnosed Date Resolved Date Restrictive airway disease 04/14/2022 1 09/20/2022 Pure hypercholesterolemia 04/20/2019 Obesity (BMI 30.0-34.9) 03/30/2017/0 04/2019 Coronary atherosclerosis of unspecified type of vessel, igiugig or graft 04/19/2019 Overview: s/p CABG 1999, first he knew of CAD Obesity, unspecified 017 Overview: Max weight 260, fall 2006 documented as of this encounter (statuses as of 07/22/2023) [facility] History of Past illness Narrative* Problem Noted Date Diagnosed Date Resolved Date Restrictive airway disease 04/14/2022 1 09/20/2022 Pure hypercholesterolemia 04/20/2019 Obesity (BMI 30.0-34.9) 03/30/20170 04/2019 Coronary atherosclerosis of unspecified type of vessel, igiugig or graft 04/19/2019 Overview: s/p CABG 1999, first he knew of CAD Obesity, unspecified 017 Overview: Max weight 260fall documented as of this encounter (statuses as of 08/10/2023) [facility] History of Past illness Narrative* Problem Noted Date Diagnosed Date Resolved Date Restrictive airway disease 04/14/2022 1 09/20/2022 Pure hypercholesterolemia 04/20/2019 Obesity (BMI 30.0-34.9) 03/30/20170 04/2019 Coronary atherosclerosis of unspecified type of vessel, igiugig or graft 04/19/2019 Overview: s/p CABG 1999, first he knew of CAD Obesity, unspecified 017 Overview: Max weight 260fall documented as of this encounter (statuses as of 08/25/2023) [facility] History of Past illness Narrative* Problem Noted Date Diagnosed Date Resolved Date Restrictive airway disease 04/14/2022 1 09/20/2022 Pure hypercholesterolemia 04/20/2019 Obesity (BMI 30.0-34.9) 03/30/20170 04/2019 Coronary atherosclerosis of unspecified type of vessel, igiugig or graft 04/19/2019 Overview: s/p CABG 1999, first he knew of CAD Obesity, unspecified 017 Overview: Max weight 260fall documented as of this encounter (statuses as of 08/27/2023) [facility] History of Present illness Narrative* Husam Deras DO - 04/14/2022 11:50 AM EDT CC: George Lewis is a 81 year old male who presents to the office for follow up HPI: Obesity, admits to weight gain in the past due to spine issues, thought it was secondary to eating a lot of blueberries and healthy carbohydrates, was recently found to have hypothyroidism, has been taking levothyroxine 50 mcg daily. trying to cut back on these carbohydrates and sugars and breads. Now only eating occasional keto breads. Has been starting a protein drink and has been able to intentionally lose some weight. Had previously been getting a little shortness of breath with walking/exertion. Did have nuclear stress testing before his surgery in December, no recent ECHO since 2018. Does have cardiology appt scheduled with Dr. Bueno on 02/18. No chest pressure or pain or palpitations or leg edema. No cough or wheezing. Doesn't smoke. Had PFTs completed which did confirm asthma concerns, he was started on Advair,tolerating well without SE Recent laparoscopic cholecystectomy, feels his bowel symptoms are improving and now eating yogurt once a day which is helpful for his symptoms. No blood in stool. Hypothyroidism, acquired, recently diagnosed 2020, taking 75 mcg levothyroxine IFG, diet controlled PAST MEDICAL HISTORY Diagnosis Date Benign neoplasm of colon 02/01/2008 Coronary atherosclerosis of unspecified type of vessel, igiugig or graft 09/12/1999 s/p CABG 1999, first he knew of CAD IFG (impaired fasting glucose) 11/2020 Obesity, unspecified Unspecified essential hypertension 09/12/1999 on BP meds since bypass Unspecified hearing loss mild/moderate, both ears; PAST SURGICAL HISTORY Procedure Laterality Date COLONOSCOPY FLX DX W/COLLJ SPEC WHEN PFRMD 02/07/2014 Colonoscopy COLONOSCOPY FLX DX W/COLLJ SPEC WHEN PFRMD 03/07/2019 Colonoscopy COLONOSCOPY W/BIOPSY SINGLE/MULTIPLE 02/01/08 HEMORRHOIDECTOMY XTRNL 2/> COLUMN/GROUP 1989 hemorrhoidectomy PAST SURGICAL HISTORY OF 1999 CABG x 3, [facility], Dr. Murray PAST SURGICAL HISTORY OF 1980 Bilateral shoulder surgery post trauma Current Outpatient Medications Medication Sig amLODIPine (NORVASC) 10 mg tablet Take 1 tablet by mouth once daily. gabapentin (NEURONTIN) 400 mg capsule Take 1 capsule by mouth three times daily for 30 days. fluticasone-salmeterol (ADVAIR DISKUS) 100-50 mcg/dose inhaler Inhale 1 Puff as instructed twice daily. Rinse mouth out after use with water. albuterol HFA (VENTOLIN HFA) 90 mcg/actuation inhaler Inhale 2 Puffs as instructed every 4 hours asneeded for wheezing/shortness of breath. levothyroxine (LEVOXYL) 100 mcg tablet Take 1 tablet by mouth once daily. Daily in AM, Take on empty stomach. For Thyroid tamsulosin (FLOMAX) 0.4 mg TAKE ONE CAPSULE BY MOUTH ONCE DAILY AT BEDTIME atenolol (TENORMIN) 25 mg tablet Take 1 tablet by mouth once daily. cetirizine (ZYRTEC) 10 mg tablet Take 1 tablet by mouth once daily. hydroCHLOROthiazide (HYDRODIURIL, ESIDRIX) 12.5 mg tablet Take 1 tablet by mouth once daily. lisinopril (ZESTRIL, PRINIVIL) 20 mg tablet Take 1 tablet by mouth twice daily. meclizine (ANTIVERT) 25 mg tab Take 1 tablet by mouth every 6 hours as needed (dizziness). meloxicam (MOBIC) 7.5 mg tablet Take 1 tablet by mouth once daily. for pain. Take with food. pravastatin (PRAVACHOL) 80 mg tablet Take 1 tablet by mouth once daily. psyllium Husk (FIBER-CAPS, PSYLLIUM HUSK,) 0.52 gram capsule Take 0.52 g by mouth once daily. docosahexaenoic acid/epa (FISH OIL ORAL) Take by mouth once daily. ergocalciferol, vitamin D2, (VITAMIN D2 ORAL) Take by mouth once daily. DAILY MULTI-VITAMIN ORAL Take by mouth once daily. OTC PRODUCT Takes 1 spoonful of beet powder couple days a week nitroglycerin sublingual (NITROQUICK) 0.4 mg SL tablet Dissolve 1 tablet under the tongue as needed. for chest pain,every 5 min x3 aspirin, enteric coated 81 mg EC tablet Take 81 mg by mouth once daily. Current Facility-Administered Medications Medication Dose Route Frequency perflutren lipid microspheres 1.3 mL in NaCl (PF) 0.9% 10 mL injection (DEFINITY) INTRAVENOUS DIRECTED PRN sodium chloride 0.9 % (flush) 10 mL (BD POSIFLUSH) 10 mL INTRAVENOUS DIRECTED PRN ALLERGIES Allergen Reactions Lipitor [Atorvastat* Intolerance Severe leg cramps, stopped Social History Tobacco Use Smoking status: Former Smoker Quit date: 09/12/1989 Years since quittin.6 Smokeless tobacco: Never Used Vaping Use Vaping Use: Never used Substance Use Topics Alcohol use: No Drug use: No ROS: See HPI PE: BP 130/60 Pulse 64 Temp (Src) 98 (Left Tympanic) Resp 16 Wt 229 lb (103.9kg) Gen: A&O, NAD, non-toxic appearing, Pleasant, cooperative HEENT: NT/AC, PERRLA, EOMs intact b/l, nares clear and patent b/l, pharynx without erythema, exudate or lesions. Uvula midline. MMM, hard of hearing, EACs without erythema or debris. TMs pearly randolph with intact landmarks b/l. Neck: supple, No cervical LAD, no thyromegaly, no carotid bruits CV: RRR, normal S1 and S2, no murmurs, no gallops, no rubs, Pulses 2+ and symmetric in UE and LE b/l Lungs: normal respiratory effort, CTA b/l, no wheezing or rhonchi or rales, no distress Abd: soft, obese NT, ND, +BS, no hepatosplenomegaly MS: gait is slowed Neuro: CN II-XII intact b/l Skin: warm, dry, intact, scattered angiomas and macules and small bruises on forearms No edema, normal pulses ASSESSMENT/PLAN: 1. Hypothyroidism, unspecified type - ICD9: 244.9, ICD10: E03.9 (primary diagnosis) - Instructed patient on importance of taking on an empty stomach either first thing in the morning or at bedtime. - continue current dose of Synthroid Weight decreasing - Behavioral intervention and - Pharmacological intervention - TSH BLD - T4 FREE/FREE THYROX - T3 FREE BLD - COMP METABOLIC PANEL - CBC 2. Restrictive airway disease - ICD9: 518.89, ICD10: J98.4 Stable - Behavioral intervention and - Pharmacological intervention 3. Essential hypertension - ICD9: 401.9, ICD10: I10 - suboptimal control - Continue current medication(s) - Encouraged dietary sodium restriction/DASH diet - Recommended regular aerobic exercise. - Recommend home blood pressure monitoring, to bring results in on next visit - Discussed need and benefit for weight loss. - Goal of BP <130/80 - COMP METABOLIC PANEL - CBC 4. Pure hypercholesterolemia - ICD9: 272.0, ICD10: E78.00 - stable, recheck labs - COMP METABOLIC PANEL - CBC - LIPID PANEL BASIC 5. PAD (peripheral artery disease) (HCC) - ICD9: 443.9, ICD10: I73.9 - f/u with Dr. Machuca 6. IFG (impaired fasting glucose) - ICD9: 790.21, ICD10: R73.01 - recheck labs, continue weight loss efforts. - HGB A1C 7. Obesity, Class I, BMI 30-34.9 - ICD9: 278.00, ICD10: E66.9 Weight decreasing - Behavioral intervention 8. Benign nodular prostatic hyperplasia without lower urinary tract symptoms - ICD9: 600.10, ICD10:N40.0 - stable 9. Moderate persistent asthma, uncomplicated - ICD9: 493.90, ICD10: J45.40 Moderate persistent Asthma stable - Continue current meds - Avoidance of triggers recommended Husam Deras DO Return if no improvement. Follow up with Husam Deras DO. To ER if develops chest pain, shortness of breath Discussed risks, benefits, alternatives, and potential side effects of medications. Patient/Guardian expressed understanding and agreed with the plan. See patient instructions. Husam Deras DO [address] [place] [address] [facility] History of Present illness Narrative* Yasmin Marquez RN - 04/12/2022 10:25 AM EDT [facility] TELEPHONIC OUTREACH Provider Action/FYI: message canceled when trying to leave a voicemail Contact made with patient: No - Unable to leave message Entered next patient outreach date for the following business day, if third call please enter next outreach date for one week in the Track Pt. Outreach - End Outreach [facility] History of Present illness Narrative* Yasmin Marquez RN - 04/09/2022 2:12 PM EDT [facility] TELEPHONIC OUTREACH Provider Action/FYI: Contact made with patient: No - Left message Rubenjunie my name is Yasmin Marquez RN your Electronic Page Makeup System Operator from the [facility] I am calling today for your bi-weekly check in. I am sorry I missed your call. I will reach out to you again tomorrow. (if the third call I will reach out to you again next week) Enter next patient outreach date for the following business day using the Track Pt Outreach. End outreach. [facility] History of Present illness Narrative* Yasmin Marquez RN - 03/12/2022 10:31 AM EDT [facility] TELEPHONIC OUTREACH Provider Action/FYI: Contact made with patient: No - Left message Rubenjunie my name is Yasmin Marquez RN your Electronic Page Makeup System Operator from the [facility] I am calling today for your bi-weekly check in. I am sorry I missed your call. I will reach out to you again tomorrow. (if the third call I will reach out to you again next week) Enter next patient outreach date for the following business day using the Track Pt Outreach. End outreach. [facility] History of Present illness Narrative* Gideon Bueno DO - 02/18/2022 8:42 AM EDT Images from the original note were not included. [facility] SECTION OF [facility]ARDIOLOG[facility] OUTPATIENT VISIT DATE February 18, 2022 PRIMARY CARE PHYSICIAN: Husam Deras [address] [place] [address] HISTORY OF PRESENT ILLNESS: Mr. Lewis is a 81 year old male. The patient turns for follow-up second history of coronary disease status post chordee bypass grafting x3 with a recent mildly abnormal nuclear stress test. He apparently underwent cardiac catheterization at [facility] and subsidy underwent his procedure of cholecystectomy he states. We unfortunately do not have records to review. Additional history includes hypertension hyperlipidemia. He has been losing weight by using a drink for breakfast that you apparently gave him. He is working hard to try to lose weight. He has been making his own vegetable soup as he was eating such previously from a can and had elevated his blood sugar it secondary to the salt load. He denies chest discomfort, dyspnea, orthopnea, paroxysmal nocturnal dyspnea, palpitations, near-syncope or syncope. PLAN AND RECOMMENDATIONS: The patient remains stable without symptoms of angina or cardiac decompensation. Heart rate, blood pressure and recent cholesterol profile are favorable. We have therefore made no additions or changes. Dietary and lifestyle modification was reemphasized to facilitate risk factor reduction. We will look forward to reevaluating him in October. Vitals: BP 116/56 Pulse (!) 56 Ht 177.8 cm (5' 10 ) Wt 106.1 kg (234 lb) SpO2 97% BMI 33.58 kg/m Physical Exam Vitals reviewed. Constitutional: General: He is not in acute distress. Appearance: He is well-developed. He is not diaphoretic. HENT: Head: Normocephalic and atraumatic. Right Ear: External ear normal. Left Ear: External ear normal. Nose: Nose normal. Eyes: General: No scleral icterus. Right eye: No discharge. Left eye: No discharge. Pupils: Pupils are equal, round, and reactive to light. Neck: Thyroid: No thyromegaly. Vascular: No JVD. Cardiovascular: Rate and Rhythm: Normal rate and regular rhythm. Heart sounds: No murmur heard. No friction rub. No gallop. Pulmonary: Effort: Pulmonary effort is normal. No respiratory distress. Breath sounds: Normal breath sounds. No wheezing or rales. Abdominal: General: Bowel sounds are normal. Palpations: Abdomen is soft. Musculoskeletal: General: Normal range of motion. Cervical back: Neck supple. Skin: General: Skin is warm and dry. Coloration: Skin is not pale. Neurological: Mental Status: He is alert and oriented to person, place, and time. Cranial Nerves: No cranial nerve deficit. Psychiatric: Mood and Affect: Mood is not anxious or depressed. Behavior: Behavior normal. Thought Content: Thought content normal. Judgment: Judgment normal. Review of Systems Constitutional: Negative for activity change, appetite change, fatigue and unexpected weight change. HENT: Negative for ear pain and trouble swallowing. Eyes: Negative for pain and visual disturbance. Respiratory: Negative for chest tightness and shortness of breath. Cardiovascular: Negative for chest pain, palpitations and leg swelling. +Claudication Gastrointestinal: Negative for abdominal pain and blood in stool. Endocrine: Negative for cold intolerance and heat intolerance. Genitourinary: Negative for dysuria, hematuria and scrotal swelling. Musculoskeletal: Positive for arthralgias. Negative for myalgias and neck pain. Skin: Negative for pallor and rash. Allergic/Immunologic: Negative for immunocompromised state. Neurological: Negative for dizziness, syncope and light-headedness. Hematological: Negative for adenopathy. Does not bruise/bleed easily. Psychiatric/Behavioral: Negative for sleep disturbance. The patient is not nervous/anxious. PAST MEDICAL HISTORY Diagnosis Date Benign neoplasm of colon 02/01/2008 Coronary atherosclerosis of unspecified type of vessel, igiugig or graft 09/12/1999 s/p CABG 1999, first he knew of CAD IFG (impaired fasting glucose) 11/2020 Obesity, unspecified Unspecified essential hypertension 09/12/1999 on BP meds since bypass Unspecified hearing loss mild/moderate, both ears; PAST SURGICAL HISTORY Procedure Laterality Date COLONOSCOPY FLX DX W/COLLJ SPEC WHEN PFRMD 02/07/2014 Colonoscopy COLONOSCOPY FLX DX W/COLLJ SPEC WHEN PFRMD 03/07/2019 Colonoscopy COLONOSCOPY W/BIOPSY SINGLE/MULTIPLE 02/01/08 HEMORRHOIDECTOMY XTRNL 2/> COLUMN/GROUP 1989 hemorrhoidectomy PAST SURGICAL HISTORY OF 1999 CABG x 3, [facility], Dr. Murray PAST SURGICAL HISTORY OF 1980 Bilateral shoulder surgery post trauma Social History Tobacco Use Smoking status: Former Smoker Quit date: 09/12/1989 Years since quittin.4 Smokeless tobacco: Never Used Vaping Use Vaping Use: Never used Substance Use Topics Alcohol use: No Drug use: No FAMILY HISTORY Problem Relation Age of Onset Colon Cancer Mother before age 60 (pt unsure) Coronary Artery Disease Father of presumed CA; heavy drinker Alcohol/Drug Father Prostate Cancer Other none Diabetes Other none ALLERGIES Allergen Reactions Lipitor [Atorvastat* Intolerance Severe leg cramps, stopped CURRENT MEDICATIONS: fluticasone-salmeterol (ADVAIR DISKUS) 100-50 mcg/dose inhaler Inhale 1 Puff as instructed twice daily. Rinse mouth out after use with water. albuterol HFA (VENTOLIN HFA) 90 mcg/actuation inhaler Inhale 2 Puffs as instructed every 4 hours asneeded for wheezing/shortness of breath. gabapentin (NEURONTIN) 400 mg capsule Take 1 capsule by mouth three times daily for 30 days. levothyroxine (LEVOXYL) 100 mcg tablet Take 1 tablet by mouth once daily. Daily in AM, Take on empty stomach. For Thyroid tamsulosin (FLOMAX) 0.4 mg TAKE ONE CAPSULE BY MOUTH ONCE DAILY AT BEDTIME amLODIPine (NORVASC) 5 mg tablet Take 1 tablet by mouth once daily. atenolol (TENORMIN) 25 mg tablet Take 1 tablet by mouth once daily. cetirizine (ZYRTEC) 10 mg tablet Take 1 tablet by mouth once daily. hydroCHLOROthiazide (HYDRODIURIL, ESIDRIX) 12.5 mg tablet Take 1 tablet by mouth once daily. lisinopril (ZESTRIL, PRINIVIL) 20 mg tablet Take 1 tablet by mouth twice daily. meclizine (ANTIVERT) 25 mg tab Take 1 tablet by mouth every 6 hours as needed (dizziness). meloxicam (MOBIC) 7.5 mg tablet Take 1 tablet by mouth once daily. for pain. Take with food. pravastatin (PRAVACHOL) 80 mg tablet Take 1 tablet by mouth once daily. psyllium Husk (FIBER-CAPS, PSYLLIUM HUSK,) 0.52 gram capsule Take 0.52 g by mouth once daily. docosahexaenoic acid/epa (FISH OIL ORAL) Take by mouth once daily. ergocalciferol, vitamin D2, (VITAMIN D2 ORAL) Take by mouth once daily. DAILY MULTI-VITAMIN ORAL Take by mouth once daily. OTC PRODUCT Takes 1 spoonful of beet powder couple days a week nitroglycerin sublingual (NITROQUICK) 0.4 mg SL tablet Dissolve 1 tablet under the tongue as needed. for chest pain,every 5 min x3 aspirin, enteric coated 81 mg EC tablet Take 81 mg by mouth once daily. Gideon Bueno DO, FACC, FAC Clinical and Preventive Cardiology Department of Medicine and Division of Cardiology, [facility] Community Engagement Representativephotolettering machine operator [facility] Community Engagement Representative of Congest[facility] Failure Clinic [facility] Cardiology Office Community Engagement Representative [facility] Staff Clinical Massage Therapist, [facility] Department of Cardiovascular Medicine/Heart and Vascular [place], [facility] Clinical Supervisor [employer] Profressor of Medicine, [facility] Please note: This note has been produced using speech recognition software and may contain errors related to that system including jessica, punctuation, spelling, words, gender and phrases that may be inappropriate. documented in this encounterSy[facility]06[facility]22 Miscellaneous Notes* Telephone Encounter - Pinky Miranda LPN - 02/12/2022 3:33 PM EDT Pt. informed. Pinky Miranda LPN * Telephone Encounter - Sunshine Nevarez LPN - 02/12/2022 2:58 PM EDT Left message to return call. * Telephone Encounter - Stu James APRN.RAFAEL - 02/12/2022 12:07 PM EDT Please let George know that we've received his echocardiogram results (ultrasound of his heart). Overall, things are stable compared with previous, there are no new concerns. His PFT (breathing/pulmonary function testing) results show that he has restrictive airway disease.This can be caused by things such as asthma, chronic bronchitis, emphysema, etc. I'm sending in 2 inhalers for him to start using. The first is called Advair. This will be one puff, twice daily. This is a regularly scheduled medication, not as needed. This helps to keep things open so it is easier to breathe. The other inhaler is albuterol. This is an as needed inhaler that he can use as needed for his SOB. I recommend he follow up with Dr. Deras in about 2 months to follow up on these new medications.Please assist him to schedule this appointment. Stu James APRN.PRECIPITATOR OPERATOR documented in this encounterSy[facility]06[facility] History of Present illness Narrative* GWEN Boswell - 02/11/2022 10:47 AM EDT PULM FUNCTION SMARTBLOCK: Provider: Husam Deras DO Assisting Tech: GWEN Boswell Spirometry w/BD: 1 System: [id number] documented in this encounterSy[facility]05-23-2022 Instructions* Patient Instructions* Husam Deras DO - 02/01/2022 8:33 AM EDT Consider starting a GLUCERNA protein shake (low sugar, high protein) for breakfast and for supper. Increase thyroid medication to 100 mcg a day - levothyroxine documented in this [facility] History of Present illness Narrative* Husam Deras DO - 02/01/2022 8:24 AM EDT CC: George Lewis is a 81 year old male who presents to the office for follow up HPI: Obesity, admits to weight gain, thought it was secondary to eating a lot of blueberries and healthycarbohydrates, was recently found to have hypothyroidism, has been taking levothyroxine 50 mcg daily. trying to cut back on these carbohydrates and sugars and breads. Now only eating occasional keto breads only walking short distances, has been getting a little shortness of breath with walking/exertion. Did have nuclear stress testing before his surgery in December, no recent ECHO since 2018. Does have cardiology appt scheduled with Dr. Bueno on 02/18. No chest pressure or pain or palpitations or leg edema. No cough or wheezing. Doesn't smoke. Recent laparoscopic cholecystectomy, feels his bowel symptoms are improving and now eating yogurt once a day which is helpful for his symptoms. No blood in stool. Hypothyroidism, acquired, recently diagnosed 2020, taking 75 mcg levothyroxine TSH Date Value Ref Range Status 12/21/2021 2.140 0.270 - 4.200 mIU/L Final IFG, diet controlled Hemoglobin A1C Date Value Ref Range Status 07/21/2021 5.7 (H) 4.3 - 5.6 % Final Comment: Citizen Of [place] Diabetes Association guidelines indicate that patients with HgbA1c in the range 5.7-6.4% are at increased risk for development of diabetes, and intervention by lifestyle modification may be beneficial. HgbA1c greater or equal to 6.5% is considered diagnostic of diabetes. 11/22/2020 5.7 (H) 4.3 - 5.6 % Final Comment: Citizen Of [place] Diabetes Association guidelines indicate that patients with HgbA1c in the range 5.7-6.4% are at increased risk for development of diabetes, and intervention by lifestyle modification may be beneficial. HgbA1c greater or equal to 6.5% is considered diagnostic of diabetes. 10/20/2018 5.6 4.3 - 5.6 % Final Comment: Citizen Of [place] Diabetes Association guidelines indicate that patients with HgbA1c in the range 5.7-6.4% are at increased risk for development of diabetes, and intervention by lifestyle modification may be beneficial. HgbA1c greater or equal to 6.5% is considered diagnostic of diabetes. 04/18/2018 5.3 4.3 - 5.6 % Final 12/19/2017 5.3 4.3 - 5.6 % Final PAST MEDICAL HISTORY Diagnosis Date Benign neoplasm of colon 02/01/2008 Coronary atherosclerosis of unspecified type of vessel, igiugig or graft 09/12/1999 s/p CABG 1999, first he knew of CAD IFG (impaired fasting glucose) 11/2020 Obesity, unspecified Unspecified essential hypertension 09/12/1999 on BP meds since bypass Unspecified hearing loss mild/moderate, both ears; PAST SURGICAL HISTORY Procedure Laterality Date COLONOSCOPY FLX DX W/COLLJ SPEC WHEN PFRMD 02/07/2014 Colonoscopy COLONOSCOPY FLX DX W/COLLJ SPEC WHEN PFRMD 03/07/2019 Colonoscopy COLONOSCOPY W/BIOPSY SINGLE/MULTIPLE 02/01/08 HEMORRHOIDECTOMY XTRNL 2/> COLUMN/GROUP 1989 hemorrhoidectomy PAST SURGICAL HISTORY OF 1999 CABG x 3, [facility], Dr. Murray PAST SURGICAL HISTORY OF 1980 Bilateral shoulder surgery post trauma Social History: Social History Tobacco Use Smoking status: Former Smoker Quit date: 09/12/1989 Years since quittin.4 Smokeless tobacco: Never Used Vaping Use Vaping Use: Never used Substance Use Topics Alcohol use: No Drug use: No FAMILY HISTORY Problem Relation Age of Onset Colon Cancer Mother before age 60 (pt unsure) Coronary Artery Disease Father of presumed CA; heavy drinker Alcohol/Drug Father Prostate Cancer Other none Diabetes Other none Current Outpatient prescriptions: tamsulosin (FLOMAX) 0.4 mg TAKE ONE CAPSULE BY MOUTH ONCE DAILY AT BEDTIME amLODIPine (NORVASC) 5 mg tablet Take 1 tablet by mouth once daily. gabapentin (NEURONTIN) 400 mg capsule Take 1 capsule by mouth three times daily for 30 days. levothyroxine (LEVOXYL) 75 mcg tablet Take 1 tablet by mouth once daily. Daily in AM, Take on emptystomach. For Thyroid atenolol (TENORMIN) 25 mg tablet Take 1 tablet by mouth once daily. cetirizine (ZYRTEC) 10 mg tablet Take 1 tablet by mouth once daily. hydroCHLOROthiazide (HYDRODIURIL, ESIDRIX) 12.5 mg tablet Take 1 tablet by mouth once daily. lisinopril (ZESTRIL, PRINIVIL) 20 mg tablet Take 1 tablet by mouth twice daily. meclizine (ANTIVERT) 25 mg tab Take 1 tablet by mouth every 6 hours as needed (dizziness). meloxicam (MOBIC) 7.5 mg tablet Take 1 tablet by mouth once daily. for pain. Take with food. pravastatin (PRAVACHOL) 80 mg tablet Take 1 tablet by mouth once daily. psyllium Husk (FIBER-CAPS, PSYLLIUM HUSK,) 0.52 gram capsule Take 0.52 g by mouth once daily. docosahexaenoic acid/epa (FISH OIL ORAL) Take by mouth once daily. ergocalciferol, vitamin D2, (VITAMIN D2 ORAL) Take by mouth once daily. DAILY MULTI-VITAMIN ORAL Take by mouth once daily. OTC PRODUCT Takes 1 spoonful of beet powder couple days a week nitroglycerin sublingual (NITROQUICK) 0.4 mg SL tablet Dissolve 1 tablet under the tongue as needed. for chest pain,every 5 min x3 aspirin, enteric coated 81 mg EC tablet Take 81 mg by mouth once daily. Allergies: ALLERGIES Allergen Reactions Lipitor [Atorvastat* Intolerance Severe leg cramps, stopped ROS: See HPI PE: 02/01/22 0811 BP: 136/60 Pulse: 64 Resp: 20 Temp: (!) 35.9 C (96.6 F) TempSrc: Left Tympanic Weight: 108.9 kg (240 lb) Gen: A&O, NAD, non-toxic appearing, Pleasant, cooperative HEENT: NT/AC, PERRLA, EOMs intact b/l, nares clear and patent b/l, pharynx without erythema, exudate or lesions. Uvula midline. MMM, hard of hearing, EACs without erythema or debris. TMs pearly randolph with intact landmarks b/l. Neck: supple, No cervical LAD, no thyromegaly, no carotid bruits CV: RRR, normal S1 and S2, no murmurs, no gallops, no rubs, Pulses 2+ and symmetric in UE and LE b/l Lungs: normal respiratory effort, CTA b/l, no wheezing or rhonchi or rales, slightly diminished breath sounds b/l bases, no distress Abd: soft, obese NT, ND, +BS, no hepatosplenomegaly MS: gait is slowed Neuro: CN II-XII intact b/l Skin: warm, dry, intact, scattered angiomas and macules and small bruises on forearms No edema, normal pulses ASSESSMENT/PLAN: 1. SOB (shortness of breath) - ICD9: 786.05, ICD10: R06.02 (primary diagnosis) - need for testing as below, will be seeing Clinical Massage Therapist in 2 weeks approx. Has had recent ECG and nuclear stress testing. Is likely also out of normal physical exertional shape due to less walking exercise than prior - ECHO - PERFLUTREN LIPID MICROSPHERES 1.1 MG/ML INJECTION IN NS 10 ML - SODIUM CHLORIDE 0.9 % (FLUSH) INJECTION SYRINGE - SPIROMETRY - BASELINE AND POST DILATOR - XR CHEST 2V FRONTAL/LAT 2. Hypothyroidism, unspecified type - ICD9: 244.9, ICD10: E03.9 - Instructed patient on importance of taking on an empty stomach either first thing in the morning or at bedtime. - Increase Synthroid dose to 0.100 mg Stable - Behavioral intervention and - Eat well program - LEVOTHYROXINE 100 MCG TABLET 3. Essential hypertension - ICD9: 401.9, ICD10: I10 - good control - Continue current medication(s) - Encouraged dietary sodium restriction/DASH diet - Recommended regular aerobic exercise. - Recommend home blood pressure monitoring, to bring results in on next visit - Discussed need and benefit for weight loss. - Goal of BP <130/80 4. Pure hypercholesterolemia - ICD9: 272.0, ICD10: E78.00 - stable 5. PAD (peripheral artery disease) (HCC) - ICD9: 443.9, ICD10: I73.9 = stable 6. IFG (impaired fasting glucose) - ICD9: 790.21, ICD10: R73.01 stable 7. Vitamin D deficiency - ICD9: 268.9, ICD10: E55.9 - continue supplement 8. Obesity, Class I, BMI 30-34.9 - ICD9: 278.00, ICD10: E66.9 Stable - Behavioral intervention and - Eat well program Husam Deras DO To ER if develops chest pain, shortness of breath, or severe worsening of symptoms. Discussed risks, benefits, alternatives, and potential side effects of medications. Patient expressed understanding and agreed with the plan. Husam Deras DO [address] [place] [address] * Pinky Miranda LPN - 02/01/2022 8:14 AM EDT THE LAST 2 WEEKS, HAVE YOU BEEN BOTHERED BY ANY OF THE FOLLOWING? - Little interest or pleasure in doing things 0 NOT AT ALL Feeling down, depressed, or hopeless 0 Trouble falling or staying asleep, or sleeping too much 0 Feeling tired or having little energy 0 Poor appetite or overeating 1 Feeling bad yourself-you are a failure or have let yourself or others 0 Trouble concentrating, like reading the paper or watching TV 0 Moving/speaking slowly (others notice) OR being more fidgety/restless 0 Thoughts that you would be better off or of hurting yourself 0 PHQ TOTAL SCORE = 1 PHQ problems effect on difficulty of work, home, and social activity: 1 - NOT DIFFICULT AT ALL documented in this encounterSy[facility]04-25-2022 Miscellaneous Notes* Telephone Encounter - Meredith Rothman Ma - 01/04/2022 4:28 PM EDT Pt informed and verbalized understanding. Meredith Rothman Ma * Telephone Encounter - Fernanda Santos APRN.CNP - 01/04/2022 4:08 PM EDT Please tell patient blood pressure remains stable and looks good. Continue current medciation regimen and continue current diet. Fernanda Santos APRN.CNP * Telephone Encounter - Alba Hager LPN - 01/04/2022 2:56 PM EDT Manual Readin/74 Pulse: 72 Home Cuff: 142/64 P: 67 Reason for blood pressure check - Last BP elevated Patient is: Taking medication as prescribed Yes Took medication today Yes If no, date medication last taken N/A Experiencing side effects No BP was elevated at last appt 12/21/21. No BP medication changes were made at that time. Taking all medications as prescribed. Home readings have ranged 121-146/58-76. Denies any chest pain, shortness of breath, dizziness, or headaches. Daily caffeine use. Past personal history of tobacco use; no current exposure. Alert and oriented. Pt has been identified by name and birthdate: Yes Allergies reviewed: Yes Latex allergy: no. Medication - prescribed and OTC reviewed and updated: Yes Do you need any prescription refills prior to your next visit: No Health Maintenance: Reviewed and not up to date and provider notified Patient advised to continue with current medications and would be contacted if any further instructions after review by PCP. Alba Hager LPN documented in this encounterSy[facility]04-25-2022 History of Present illness Narrative* Alba Hager LPN - 01/04/2022 2:54 PM EDT Manual Readin/74 Pulse: 72 Home Cuff: 142/64 P: 67 Reason for blood pressure check - Last BP elevated Patient is: Taking medication as prescribed Yes Took medication today Yes If no, date medication last taken N/A Experiencing side effects No BP was elevated at last appt 12/21/21. No BP medication changes were made at that time. Taking all medications as prescribed. Home readings have ranged 121-146/58-76. Denies any chest pain, shortness of breath, dizziness, or headaches. Daily caffeine use. Past personal history of tobacco use; no current exposure. Alert and oriented. Pt has been identified by name and birthdate: Yes Allergies reviewed: Yes Latex allergy: no. Medication - prescribed and OTC reviewed and updated: Yes Do you need any prescription refills prior to your next visit: No Health Maintenance: Reviewed and not up to date and provider notified Patient advised to continue with current medications and would be contacted if any further instructions after review by PCP. Alba Hager LPN documented in this encounterSy[facility]04-13-2022 Miscellaneous Notes* Telephone Encounter - Meredith Rothman Ma - 12/23/2021 5:51 PM EDT Pt notified rx sent to correct pharmacy The following approved medication requests have been transmitted electronically. Signed Prescriptions Disp Refills tamsulosin (FLOMAX) 0.4 mg 90 capsule 1 Sig: TAKE ONE CAPSULE BY MOUTH ONCE DAILY AT BEDTIME ALLYSON: No Authorizing Provider: STU JAMES Ma * Telephone Encounter - Stu James APRN.CNP - 12/23/2021 5:48 PM EDT The following approved medication requests have been transmitted electronically. Signed Prescriptions Disp Refills tamsulosin (FLOMAX) 0.4 mg 90 capsule 1 Sig: TAKE ONE CAPSULE BY MOUTH ONCE DAILY AT BEDTIME ALLYSON: No Authorizing Provider: STU JAMES APRN.CNP * Telephone Encounter - Meredith Rothman Ma - 12/23/2021 5:42 PM EDT Pt notified and verbalized understanding. Pt asking for rx Flomax to help him use restroom in the evening. He would like this rx sent to [facility] in [place]. Please advise Meredith Rothman Ma * Telephone Encounter - Stu James APRN.CNP - 12/23/2021 5:31 PM EDT Please let George know that we've received his lab results. His thyroid levels are in target range. Kidney function is stable. Blood counts are all in good range. Stu James APRN.CNP documented in this encounterSy[facility]04-11-2022 Instructions* Patient Instructions* Fernanda Santos APRN.CNP - 12/21/2021 11:06 AM EDT Nurse visit in 2 weeks to recheck BP. Bring cuff and machine with you. Get blood work from 10/19 documented in this encounterSy[facility]04-11-2022 History of Present illness Narrative* Fernanda Santos APRN.CNP - 12/21/2021 10:49 AM EDT Chief Complaint Patient presents with: Blood Pressure HPI George Lewis is a 81 year old male who presents here today for Above Complaints. George is an established patient of Dr. Deras. George is a new patient to me today. HTN: Currently on Amlodipine 5 mg (Recently added by card in November), atenolol 25 mg, HCTZ 12.5 mg daily,and lisinopril 20 mg BID. Concerned today because he has been taking BP at home and noticed it to be elevated. Patient denies any CP, SOB, dizziness, or palpitations. Taking BP at home: Clinical Massage Therapist told him to take BP monthly. Has noticed they were elevating so he started to take it daily. Has been eating vegetable canned soup daily about 1-2 bowls (not eating anything else) x 8 weeks tohelp him lose weight. Realized now that this is a lot of sodium. For the past few days (2-3) he went back to eating vegetables (broccili or brussels sprouts) and grilled chicken for lunch instead. BP readings at home: 12/16 152/71 12/17 149/72 12/18 163/76 12/19 169/76 12/20 152/66 12/21 159/74 Pt brought BP machine but forgot cuff to attach to it. Cleared by cardiology to have gallbladder removed at [facility]. Got call today on his way here that he was cleared and ready to schedule surgery. Past medical history, appointments, medications, allergies reviewed. 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 Murray PAST SURGICAL HISTORY OF 1980 Bilateral shoulder surgery post trauma Family History FAMILY HISTORY Problem Relation Age of Onset Colon Cancer Mother before age 60 (pt unsure) Coronary Artery Disease Father of presumed CA; heavy drinker Alcohol/Drug Father Prostate Cancer Other none Diabetes Other none Patient Allergies ALLERGIES Allergen Reactions Lipitor [Atorvastat* Intolerance Severe leg cramps, stopped Current Medications Current Outpatient Medications on File Prior to Visit Medication Sig amLODIPine (NORVASC) 5 mg tablet Take 1 tablet by mouth once daily. levothyroxine (LEVOXYL) 75 mcg tablet Take 1 tablet by mouth once daily. Daily in AM, Take on emptystomach. For Thyroid atenolol (TENORMIN) 25 mg tablet Take 1 tablet by mouth once daily. cetirizine (ZYRTEC) 10 mg tablet Take 1 tablet by mouth once daily. hydroCHLOROthiazide (HYDRODIURIL, ESIDRIX) 12.5 mg tablet Take 1 tablet by mouth once daily. lisinopril (ZESTRIL, PRINIVIL) 20 mg tablet Take 1 tablet by mouth twice daily. meclizine (ANTIVERT) 25 mg tab Take 1 tablet by mouth every 6 hours as needed (dizziness). meloxicam (MOBIC) 7.5 mg tablet Take 1 tablet by mouth once daily. for pain. Take with food. pravastatin (PRAVACHOL) 80 mg tablet Take 1 tablet by mouth once daily. tamsulosin (FLOMAX) 0.4 mg TAKE ONE CAPSULE BY MOUTH ONCE DAILY AT BEDTIME psyllium Husk (FIBER-CAPS, PSYLLIUM HUSK,) 0.52 gram capsule Take 0.52 g by mouth once daily. docosahexaenoic acid/epa (FISH OIL ORAL) Take by mouth once daily. ergocalciferol, vitamin D2, (VITAMIN D2 ORAL) Take by mouth once daily. DAILY MULTI-VITAMIN ORAL Take by mouth once daily. OTC PRODUCT Takes 1 spoonful of beet powder couple days a week nitroglycerin sublingual (NITROQUICK) 0.4 mg SL tablet Dissolve 1 tablet under the tongue as needed. for chest pain,every 5 min x3 aspirin, enteric coated 81 mg EC tablet Take 81 mg by mouth once daily. gabapentin (NEURONTIN) 400 mg capsule Take 1 capsule by mouth three times daily for 30 days. No current facility-administered medications on file prior to visit. Social History Social History Tobacco Use Smoking status: Former Smoker Quit date: 09/12/1989 Years since quittin.2 Smokeless tobacco: Never Used Vaping Use Vaping Use: Never used Substance Use Topics Alcohol use: No Drug use: No REVIEW OF SYSTEMS: as above Reviewed relevant PMHx, PSHx, Social Hx, current medications and allergies. Review of Symptoms See HPI. All other systems are negative. EXAM: BP 130/60 (BP Site: Left Arm, BP Position: Sitting, BP Cuff Size: Large Adult) Pulse 60 Resp 16 Wt 108.2 kg (238 lb 9.6 oz) BMI 32.36 kg/m General Appearance: Well appearing, alert, in no acute distress, well-hydrated, well nourished.. Skin: Skin color, texture, turgor normal, no suspicious rashes or lesions. Neck: Supple, no adenopathy; thyroid symmetric, normal size, no bruits. Lungs: Lungs clear to auscultation. No wheezing, rhonchi, rales.. Heart: RRR without murmur, gallop, or rubs. No ectopy. Extremities: No deformities, edema, skin discoloration, clubbing or cyanosis. Good capillary refill. . Musculoskeletal: No joint swelling, deformity, or tenderness. Peripheral Pulses: Normal. Neurologic: Gait normal. Reflexes normal and symmetric. Sensation grossly intact.. Health Maintenance List SPIROMETRY Never done SHINGRIX VACCINE(2 of 3) due on 03/11/2014 ADVANCE DIRECTIVE DISCUSSION Never done DTAP,TDAP,TD(1 - Tdap) due on 12/21/2022 DEPRESSION SCREENING due on 01/20/2022 LDL CHOLESTEROL due on 07/21/2022 BP CONTROLLED (<130/80) due on 07/21/2022 ANNUAL PCP TEAM CHRONIC DISEASE VISIT due on 12/21/2022 DIABETES SCREEN due on 07/21/2024 INFLUENZA Completed PNEUMOVAX AGE 65 AND OVER WITH 5YR LOOKBACK Completed COVID-19 VACCINE Completed MENINGOCOCCAL CONJUGATE Aged Out ASSESSMENT/PLAN: 1. Essential hypertension - ICD9: 401.9, ICD10: I10 - good control - Continue current medication(s) - Encouraged dietary sodium restriction/DASH diet - Recommended regular aerobic exercise. - Recommend home blood pressure monitoring, to bring results in on next visit - Discussed need and benefit for weight loss. - Goal of BP <130/80 - Recommend home or pharmacy blood pressure monitoring - Recommended no refined sugar, low refined starch, healthy oil intake (olive oil), healthy protein(fish) along the lines of the Mediterranean diet. - Discussed limiting canned soup intake to once per week. Encouraged current diet of steamed vegetables and grilled chicken. - Continue taking BP at home daily. RTO in 2 weeks for nurse visit to reassess BP. Bring BP machine and cuff to compare readings. Continue to document BP daily at home to also compare. Prescription instructions reviewed with patient as applicable. Potential red flag symptoms discussed with the patient. Reviewed appropriate action plan to take if red flag symptoms occur. Patient agreeable to treatment plan. Fernanda Santos APRN.PRECIPITATOR OPERATOR [address] [place] [address] documented in this encounterSycamore Medical Center04-07-2022 Miscellaneous Notes* Telephone Encounter - Joseph Mars RN - 12/17/2021 11:03 AM EDT Called Pt advise him that we have cleared him for his upcoming cholecystectomy at [place]. Clearance documented in OV from yesterday. We will likely need to send copy of OV to surgeon. [facility] Thanks LISSETT * Telephone Encounter - Erin Blood APRN.CNP - 12/17/2021 9:48 AM EDT Please call patient and advise him that we have cleared him for his upcoming cholecystectomy at [place]. Clearance documented in OV from yesterday. We will likely need to send copy of OV to surgeon. Thanks LISSETT documented in this encounterSycamore Medical Center04-06-2022 Miscellaneous Notes* Telephone Encounter - Joseph Mars RN - 12/16/2021 9:09 AM EDT Called PT set up Appt. With David Blood today at 1 PM The patient unfortunately had ischemia on his stress test for preoperative risk assessment for cholecystectomy. Have him follow-up with one of the nurse practitioners as soon as possible to assess for cardiac catheterization to reassess coronary anatomy. documented in this encounterSycamore Medical Center04-01-2022 History of Present illness Narrative* MARCELINO Paredes - 12/11/2021 7:15 AM EDT RADIOLOGY SERVICE PROGRESS NOTE SERVICE DATE: 12/11/2021 SERVICE TIME: 9:48 AM PATIENT IDENTITY VERIFICATION COMPLETED USING TWO (2) STANDARD IDENTIFIERS: Name and Date of confirmed by patient verbally and Name and Date of confirmed by identification band FALL SCREENING: Has the patient had 2 falls in the last year or 1 fall with injury or currently using an Ambulatory Assistive Device (Walker, Cane, Wheelchair, Crutches, etc.)? No PATIENT GENDER DATA: .male ALLERGIES: Reviewed and unchanged MEDICATIONS REVIEWED: Not applicable PATIENT RELEVANT IMPLANT DATA REVIEWED: Not Applicable CREATININE: Creatinine Date Value Ref Range Status 07/21/2021 0.93 0.73 - 1.22 mg/dL Final 03/09/2021 0.86 0.73 - 1.22 mg/dL Final 11/22/2020 1.00 0.73 - 1.22 mg/dL Final eGFR-All Other Races Date Value Ref Range Status 07/21/2021 >60 . Final Comment: eGFR (Estimated GFR) Units of measure: mL/min/1.73 meters squared eGFR is derived from the reexpressed MDRD Study equation using the following parameters: serum creatinine, age, gender and race. The creatinine assay has been calibrated to be traceable to IDMS. An eGFR <60 mL/min/1.73m2 for >3 months is consistent with chronic kidney disease. Refer to KDOQI guidelines for clinical interpretation. In patients with unstable renal function, e.g. those with acute kidney injury, the eGFR may not accurately reflect actual GFR. eGFR- Date Value Ref Range Status 07/21/2021 >60 Final P.O.C.T. RESULTS: N/A December 11, [address] PERFORMED: No IV SITE: Ambulatory: A peripheral IV was started in the Right antecubital site with a Angio cath: 22 gauge. POST EXAM PIV STATUS: Discontinued PROCEDURE TYPE: NM Stress: 12.4mCi [id number] was administered IV for Rest Imaging at 07:20 by MARCELINO Paredes. 32.6 mCi [id number] was administered IV for Stress Imaging at 08:25 by MARCELINO Herrera. PATIENT DISCHARGED TO: Ambulatory patient, left NM department area. A Diagnostic radioactive procedure has taken place, with no further precautions necessary other than routine body substance precautions. More information regarding radiation safety can be found [email or web address] link: [email or web address] SIGNATURE: MARCELINO Paredes PATIENT NAME: George Lewis DATE: December 11, 2021 TIME: 9:48 AM PAGER/CONTACT #: documented in this encounterSycamore Medical Center08-09-2019 History of Past illness Narrative* Problem Noted Date Resolved Date Pure hypercholesterolemia 04/20/20192022 Obesity (BMI 30.0-34.9) 03/30/2017 10/20/19 19 Coronary atherosclerosis of unspecified type of vessel, igiugig or graft 04/19/2019 Overview: s/p CABG 1999, first he knew of CAD Obesity, unspecified 03/30/2017 Overview: Max weight 260, fall 2006 documented as of this encounter (statuses as of 10/26/2022) [facility]2019 History of Past illness Narrative* Problem Noted Date Resolved Date Pure hypercholesterolemia 04/20/20192022 Obesity (BMI 30.0-34.9) 03/30/2017 10/20/19 19 Coronary atherosclerosis of unspecified type of vessel, igiugig or graft 04/19/2019 Overview: s/p CABG 1999, first he knew of CAD Obesity, unspecified 03/30/2017 Overview: Max weight 260fall documented as of this encounter (statuses as of 10/26/2022) [facility] History of Past illness Narrative* Problem Noted Date Resolved Date Pure hypercholesterolemia 04/20/20192022 Obesity (BMI 30.0-34.9) 03/30/2017 10/20/19 19 Coronary atherosclerosis of unspecified type of vessel, igiugig or graft 04/19/2019 Overview: s/p CABG 2000, first he knew of CAD Obesity, unspecified 03/30/2017 Overview: Max weight 260fall documented as of this encounter (statuses as of 10/28/2022) [facility] History of Past illness Narrative* Problem Noted Date Resolved Date Pure hypercholesterolemia 04/20/20192022 Obesity (BMI 30.0-34.9) 03/30/2017 10/20/19 19 Coronary atherosclerosis of unspecified type of vessel, igiugig or graft 04/19/2019 Overview: s/p CABG 2000, first he knew of CAD Obesity, unspecified 03/30/2017 Overview: Max weight 260fall documented as of this encounter (statuses as of 11/02/2022) [facility] History of Past illness Narrative* Problem Noted Date Resolved Date Pure hypercholesterolemia 04/20/20192022 Obesity (BMI 30.0-34.9) 03/30/2017 10/20/19 19 Coronary atherosclerosis of unspecified type of vessel, igiugig or graft 04/19/2019 Overview: s/p CABG 2000, first he knew of CAD Obesity, unspecified 03/30/2017 Overview: Max weight 260fall documented as of this encounter (statuses as of 11/05/2022) [facility] History of Past illness Narrative* Problem Noted Date Resolved Date Pure hypercholesterolemia 04/20/20192022 Obesity (BMI 30.0-34.9) 03/30/2017 10/20/19 19 Coronary atherosclerosis of unspecified type of vessel, igiugig or graft 04/19/2019 Overview: s/p CABG 1999, first he knew of CAD Obesity, unspecified 03/30/2017 Overview: Max weight 260fall documented as of this encounter (statuses as of 11/12/2022) [facility] History of Past illness Narrative* Problem Noted Date Resolved Date Pure hypercholesterolemia 04/20/20192022 Obesity (BMI 30.0-34.9) 03/30/2017 10/20/19 19 Coronary atherosclerosis of unspecified type of vessel, igiugig or graft 04/19/2019 Overview: s/p CABG 1999, first he knew of CAD Obesity, unspecified 03/30/2017 Overview: Max weight 260fall documented as of this encounter (statuses as of 11/16/2022) [facility] History of Past illness Narrative* Problem Noted Date Resolved Date Pure hypercholesterolemia 04/20/20192022 Obesity (BMI 30.0-34.9) 03/30/2017 10/20/19 19 Coronary atherosclerosis of unspecified type of vessel, igiugig or graft 04/19/2019 Overview: s/p CABG 1999, first he knew of CAD Obesity, unspecified 03/30/2017 Overview: Max weight 260fall documented as of this encounter (statuses as of 11/25/2022) [facility] History of Past illness Narrative* Problem Noted Date Resolved Date Pure hypercholesterolemia 04/20/20192022 Obesity (BMI 30.0-34.9) 03/30/2017 10/20/19 19 Coronary atherosclerosis of unspecified type of vessel, igiugig or graft 04/19/2019 Overview: s/p CABG 1999, first he knew of CAD Obesity, unspecified 03/30/2017 Overview: Max weight 260fall documented as of this encounter (statuses as of 12/07/2022) [facility] History of Past illness Narrative* Problem Noted Date Resolved Date Pure hypercholesterolemia 04/20/20192022 Obesity (BMI 30.0-34.9) 03/30/2017 10/20/19 19 Coronary atherosclerosis of unspecified type of vessel, igiugig or graft 04/19/2019 Overview: s/p CABG 1999, first he knew of CAD Obesity, unspecified 03/30/2017 Overview: Max weight 260fall documented as of this encounter (statuses as of 12/10/2022) [facility] History of Past illness Narrative* Problem Noted Date Resolved Date Pure hypercholesterolemia 04/20/20192022 Obesity (BMI 30.0-34.9) 03/30/2017 10/20/19 19 Coronary atherosclerosis of unspecified type of vessel, igiugig or graft 04/19/2019 Overview: s/p CABG 1999, first he knew of CAD Obesity, unspecified 03/30/2017 Overview: Max weight 260fall documented as of this encounter (statuses as of 12/20/2022) [facility] History of Past illness Narrative* Problem Noted Date Resolved Date Pure hypercholesterolemia 04/20/20192022 Obesity (BMI 30.0-34.9) 03/30/2017 10/20/19 19 Coronary atherosclerosis of unspecified type of vessel, igiugig or graft 04/19/2019 Overview: s/p CABG 1999, first he knew of CAD Obesity, unspecified 03/30/2017 Overview: Max weight 260fall documented as of this encounter (statuses as of 01/03/2023) [facility] History of Past illness Narrative* Problem Noted Date Resolved Date Pure hypercholesterolemia 04/20/20192022 Obesity (BMI 30.0-34.9) 03/30/2017 10/20/19 19 Coronary atherosclerosis of unspecified type of vessel, igiugig or graft 04/19/2019 Overview: s/p CABG 2000, first he knew of CAD Obesity, unspecified 03/30/2017 Overview: Max weight 260fall documented as of this encounter (statuses as of 01/06/2023) [facility] History of Past illness Narrative* Problem Noted Date Resolved Date Pure hypercholesterolemia 04/20/20192022 Obesity (BMI 30.0-34.9) 03/30/2017 10/20/19 19 Coronary atherosclerosis of unspecified type of vessel, igiugig or graft 04/19/2019 Overview: s/p CABG 1999, first he knew of CAD Obesity, unspecified 03/30/2017 Overview: Max weight 260fall documented as of this encounter (statuses as of 01/21/2023) [facility] History of Past illness Narrative* Problem Noted Date Resolved Date Pure hypercholesterolemia 04/20/20192022 Obesity (BMI 30.0-34.9) 03/30/2017 10/20/19 19 Coronary atherosclerosis of unspecified type of vessel, igiugig or graft 04/19/2019 Overview: s/p CABG 1999, first he knew of CAD Obesity, unspecified 03/30/2017 Overview: Max weight 260fall documented as of this encounter (statuses as of 01/25/2023) [facility] History of Past illness Narrative* Problem Noted Date Resolved Date Pure hypercholesterolemia 04/20/20192022 Obesity (BMI 30.0-34.9) 03/30/2017 10/20/19 19 Coronary atherosclerosis of unspecified type of vessel, igiugig or graft 04/19/2019 Overview: s/p CABG 1999, first he knew of CAD Obesity, unspecified 03/30/2017 Overview: Max weight 260fall documented as of this encounter (statuses as of 02/08/2023) [facility] History of Past illness Narrative* Problem Noted Date Resolved Date Pure hypercholesterolemia 04/20/20192022 Obesity (BMI 30.0-34.9) 03/30/2017 10/20/19 19 Coronary atherosclerosis of unspecified type of vessel, igiugig or graft 04/19/2019 Overview: s/p CABG 1999, first he knew of CAD Obesity, unspecified 03/30/2017 Overview: Max weight 260fall documented as of this encounter (statuses as of 02/09/2023) [facility] History of Past illness Narrative* Problem Noted Date Resolved Date Pure hypercholesterolemia 04/20/20192022 Obesity (BMI 30.0-34.9) 03/30/2017 10/20/19 19 Coronary atherosclerosis of unspecified type of vessel, igiugig or graft 04/19/2019 Overview: s/p CABG 1999, first he knew of CAD Obesity, unspecified 03/30/2017 Overview: Max weight 260fall documented as of this encounter (statuses as of 02/25/2023) [facility] History of Past illness Narrative* Problem Noted Date Resolved Date Pure hypercholesterolemia 04/20/20192022 Obesity (BMI 30.0-34.9) 03/30/2017 10/20/19 19 Coronary atherosclerosis of unspecified type of vessel, igiugig or graft 04/19/2019 Overview: s/p CABG 1999, first he knew of CAD Obesity, unspecified 03/30/2017 Overview: Max weight 260fall documented as of this encounter (statuses as of 03/08/2023) [facility] History of Past illness Narrative* Problem Noted Date Resolved Date Pure hypercholesterolemia 04/20/20192022 Obesity (BMI 30.0-34.9) 03/30/2017 10/20/19 19 Coronary atherosclerosis of unspecified type of vessel, igiugig or graft 04/19/2019 Overview: s/p CABG 2000, first he knew of CAD Obesity, unspecified 03/30/2017 Overview: Max weight 260fall documented as of this encounter (statuses as of 03/09/2023) [facility] History of Past illness Narrative* Problem Noted Date Resolved Date Pure hypercholesterolemia 04/20/20192022 Obesity (BMI 30.0-34.9) 03/30/2017 10/20/19 19 Coronary atherosclerosis of unspecified type of vessel, igiugig or graft 04/19/2019 Overview: s/p CABG 1999, first he knew of CAD Obesity, unspecified 03/30/2017 Overview: Max weight 260fall documented as of this encounter (statuses as of 03/15/2023) [facility] History of Past illness Narrative* Problem Noted Date Resolved Date Pure hypercholesterolemia 04/20/20192022 Obesity (BMI 30.0-34.9) 03/30/2017 10/20/19 19 Coronary atherosclerosis of unspecified type of vessel, igiugig or graft 04/19/2019 Overview: s/p CABG 1999, first he knew of CAD Obesity, unspecified 03/30/2017 Overview: Max weight 260fall documented as of this encounter (statuses as of 03/18/2023) [facility] History of Past illness Narrative* Problem Noted Date Resolved Date Pure hypercholesterolemia 04/20/20192022 Obesity (BMI 30.0-34.9) 03/30/2017 10/20/19 19 Coronary atherosclerosis of unspecified type of vessel, igiugig or graft 04/19/2019 Overview: s/p CABG 1999, first he knew of CAD Obesity, unspecified 03/30/2017 Overview: Max weight 260fall documented as of this encounter (statuses as of 03/18/2023) [facility] History of Past illness Narrative* Problem Noted Date Resolved Date Pure hypercholesterolemia 04/20/20192022 Obesity (BMI 30.0-34.9) 03/30/2017 10/20/19 Coronary atherosclerosis of unspecified type of vessel, igiugig or graft 04/19/2019 Overview: s/p CABG 1999, first he knew of CAD Obesity, unspecified 03/30/2017 Overview: Max weight 260fall documented as of this encounter (statuses as of 03/18/2023) [facility] History of Past illness Narrative* Problem Noted Date Diagnosed Date Resolved Date Pure hypercholesterolemia 04/20/2019 Obesity (BMI 30.0-34.9) 03/30/201704/2019 Coronary atherosclerosis of unspecified type of vessel, igiugig or graft 04/19/2019 Overview: s/p CABG 1999, first he knew of CAD Obesity, unspecified 017 Overview: Max weight 260fall documented as of this encounter (statuses as of 03/22/2023) [facility] History of Past illness Narrative* Problem Noted Date Diagnosed Date Resolved Date Pure hypercholesterolemia 04/20/2019 Obesity (BMI 30.0-34.9) 03/30/201704/2019 Coronary atherosclerosis of unspecified type of vessel, igiugig or graft 04/19/2019 Overview: s/p CABG 1999, first he knew of CAD Obesity, unspecified 017 Overview: Max weight 260fall documented as of this encounter (statuses as of 03/25/2023) [facility] History of Past illness Narrative* Problem Noted Date Diagnosed Date Resolved Date Pure hypercholesterolemia 04/20/2019 Obesity (BMI 30.0-34.9) 03/30/201704/2019 Coronary atherosclerosis of unspecified type of vessel, igiugig or graft 04/19/2019 Overview: s/p CABG 1999, first he knew of CAD Obesity, unspecified 017 Overview: Max weight 260fall documented as of this encounter (statuses as of 04/11/2023) [facility] History of Past illness Narrative* Problem Noted Date Diagnosed Date Resolved Date Pure hypercholesterolemia 04/20/2019 Obesity (BMI 30.0-34.9) 03/30/201704/2019 Coronary atherosclerosis of unspecified type of vessel, igiugig or graft 04/19/2019 Overview: s/p CABG 1999, first he knew of CAD Obesity, unspecified 017 Overview: Max weight 260fall documented as of this encounter (statuses as of 04/12/2023) [facility] History of Past illness Narrative* Problem Noted Date Diagnosed Date Resolved Date Pure hypercholesterolemia 04/20/2019 Obesity (BMI 30.0-34.9) 03/30/201704/2019 Coronary atherosclerosis of unspecified type of vessel, igiugig or graft 04/19/2019 Overview: s/p CABG 1999, first he knew of CAD Obesity, unspecified 017 Overview: Max weight 260fall documented as of this encounter (statuses as of 04/14/2023) [facility] History of Past illness Narrative* Problem Noted Date Diagnosed Date Resolved Date Pure hypercholesterolemia 04/20/2019 Obesity (BMI 30.0-34.9) 03/30/201704/2019 Coronary atherosclerosis of unspecified type of vessel, igiugig or graft 04/19/2019 Overview: s/p CABG 1999, first he knew of CAD Obesity, unspecified 017 Overview: Max weight 260fall documented as of this encounter (statuses as of 04/20/2023) [facility] History of Past illness Narrative* Problem Noted Date Diagnosed Date Resolved Date Pure hypercholesterolemia 04/20/2019 Obesity (BMI 30.0-34.9) 03/30/20170 04/2019 Coronary atherosclerosis of unspecified type of vessel, igiugig or graft 04/19/2019 Overview: s/p CABG 1999, first he knew of CAD Obesity, unspecified 017 Overview: Max weight 260fall documented as of this encounter (statuses as of 04/26/2023) [facility] History of Past illness Narrative* Problem Noted Date Diagnosed Date Resolved Date Pure hypercholesterolemia 04/20/2019 Obesity (BMI 30.0-34.9) 03/30/20170 04/2019 Coronary atherosclerosis of unspecified type of vessel, igiugig or graft 04/19/2019 Overview: s/p CABG 1999, first he knew of CAD Obesity, unspecified 017 Overview: Max weight 260fall documented as of this encounter (statuses as of 04/28/2023) [facility] History of Past illness Narrative* Problem Noted Date Diagnosed Date Resolved Date Pure hypercholesterolemia 04/20/2019 Obesity (BMI 30.0-34.9) 03/30/20170 04/2019 Coronary atherosclerosis of unspecified type of vessel, igiugig or graft 04/19/2019 Overview: s/p CABG 1999, first he knew of CAD Obesity, unspecified 017 Overview: Max weight 260fall documented as of this encounter (statuses as of 05/03/2023) [facility] History of Past illness Narrative* Problem Noted Date Diagnosed Date Resolved Date Pure hypercholesterolemia 04/20/2019 Obesity (BMI 30.0-34.9) 03/30/201704/2019 Coronary atherosclerosis of unspecified type of vessel, igiugig or graft 04/19/2019 Overview: s/p CABG 1999, first he knew of CAD Obesity, unspecified 017 Overview: Max weight 260, fall 2006 documented as of this encounter (statuses as of 05/31/2023) [facility] History of Past illness Narrative* Problem Noted Date Diagnosed Date Resolved Date Pure hypercholesterolemia 04/20/2019 Obesity (BMI 30.0-34.9) 03/30/201704/2019 Coronary atherosclerosis of unspecified type of vessel, igiugig or graft 04/19/2019 Overview: s/p CABG 1999, first he knew of CAD Obesity, unspecified 017 Overview: Max weight 260, fall 2006 documented as of this encounter (statuses as of 06/29/2023) [facility] History of Past illness Narrative* Problem Noted Date Diagnosed Date Resolved Date Pure hypercholesterolemia 04/20/2019 Obesity (BMI 30.0-34.9) 03/30/201704/2019 Coronary atherosclerosis of unspecified type of vessel, igiugig or graft 04/19/2019 Overview: s/p CABG 1999, first he knew of CAD Obesity, unspecified 017 Overview: Max weight 260fall documented as of this encounter (statuses as of 07/20/2023) [facility] History of Past illness Narrative* Problem Noted Date Diagnosed Date Resolved Date Pure hypercholesterolemia 04/20/2019 Obesity (BMI 30.0-34.9) 03/30/201704/2019 Coronary atherosclerosis of unspecified type of vessel, igiugig or graft 04/19/2019 Overview: s/p CABG 2000, first he knew of CAD Obesity, unspecified 017 Overview: Max weight 260fall documented as of this encounter (statuses as of 07/21/2023) [facility] History of Past illness Narrative* Problem Noted Date Resolved Date Obesity (BMI 30.0-34.9) 03/30/2017 10/20/19 Coronary atherosclerosis of unspecified type of vessel, igiugig or graft 04/19/2019 Overview: s/p CABG 2000, first he knew of CAD Obesity, unspecified 03/30/2017 Overview: Max weight 260fall documented as of this encounter (statuses as of 12/12/2021) [facility] History of Past illness Narrative* Problem Noted Date Resolved Date Obesity (BMI 30.0-34.9) 03/30/2017 10/20/19 19 Coronary atherosclerosis of unspecified type of vessel, igiugig or graft 04/19/2019 Overview: s/p CABG 1999, first he knew of CAD Obesity, unspecified 03/30/2017 Overview: Max weight 260, fall 2006 documented as of this encounter (statuses as of 12/12/2021) [facility] History of Past illness Narrative* Problem Noted Date Resolved Date Obesity (BMI 30.0-34.9) 03/30/2017 10/20/19 19 Coronary atherosclerosis of unspecified type of vessel, igiugig or graft 04/19/2019 Overview: s/p CABG 1999, first he knew of CAD Obesity, unspecified 03/30/2017 Overview: Max weight 260fall documented as of this encounter (statuses as of 12/16/2021) [facility] History of Past illness Narrative* Problem Noted Date Resolved Date Obesity (BMI 30.0-34.9) 03/30/2017 10/20/19 19 Coronary atherosclerosis of unspecified type of vessel, igiugig or graft 04/19/2019 Overview: s/p CABG 2000, first he knew of CAD Obesity, unspecified 03/30/2017 Overview: Max weight 260fall documented as of this encounter (statuses as of 12/17/2021) [facility] History of Past illness Narrative* Problem Noted Date Resolved Date Obesity (BMI 30.0-34.9) 03/30/2017 10/20/19 Coronary atherosclerosis of unspecified type of vessel, igiugig or graft 04/19/2019 Overview: s/p CABG 2000, first he knew of CAD Obesity, unspecified 03/30/2017 Overview: Max weight 260fall documented as of this encounter (statuses as of 12/21/2021) [facility] History of Past illness Narrative* Problem Noted Date Resolved Date Obesity (BMI 30.0-34.9) 03/30/2017 10/20/19 19 Coronary atherosclerosis of unspecified type of vessel, igiugig or graft 04/19/2019 Overview: s/p CABG 2000, first he knew of CAD Obesity, unspecified 03/30/2017 Overview: Max weight 260fall documented as of this encounter (statuses as of 12/23/2021) [facility] History of Past illness Narrative* Problem Noted Date Resolved Date Obesity (BMI 30.0-34.9) 03/30/2017 10/20/19 19 Coronary atherosclerosis of unspecified type of vessel, igiugig or graft 04/19/2019 Overview: s/p CABG 1999, first he knew of CAD Obesity, unspecified 03/30/2017 Overview: Max weight 260fall documented as of this encounter (statuses as of 01/04/2022) [facility] History of Past illness Narrative* Problem Noted Date Resolved Date Obesity (BMI 30.0-34.9) 03/30/2017 02/08/20 19 Coronary atherosclerosis of unspecified type of vessel, igiugig or graft 04/19/2019 Overview: s/p CABG 2000, first he knew of CAD Obesity, unspecified 03/30/2017 Overview: Max weight 260fall documented as of this encounter (statuses as of 01/04/2022) [facility] History of Past illness Narrative* Problem Noted Date Resolved Date Obesity (BMI 30.0-34.9) 03/30/2017 10/20/19 Coronary atherosclerosis of unspecified type of vessel, igiugig or graft 04/19/2019 Overview: s/p CABG 2000, first he knew of CAD Obesity, unspecified 03/30/2017 Overview: Max weight 260fall documented as of this encounter (statuses as of 02/01/2022) [facility] History of Past illness Narrative* Problem Noted Date Resolved Date Obesity (BMI 30.0-34.9) 03/30/2017 10/20/19 19 Coronary atherosclerosis of unspecified type of vessel, igiugig or graft 04/19/2019 Overview: s/p CABG 1999, first he knew of CAD Obesity, unspecified 03/30/2017 Overview: Max weight 260fall documented as of this encounter (statuses as of 02/11/2022) [facility] History of Past illness Narrative* Problem Noted Date Resolved Date Obesity (BMI 30.0-34.9) 03/30/2017 10/20/19 19 Coronary atherosclerosis of unspecified type of vessel, igiugig or graft 04/19/2019 Overview: s/p CABG 1999, first he knew of CAD Obesity, unspecified 03/30/2017 Overview: Max weight 260fall documented as of this encounter (statuses as of 02/12/2022) [facility] History of Past illness Narrative* Problem Noted Date Resolved Date Obesity (BMI 30.0-34.9) 03/30/2017 10/20/19 19 Coronary atherosclerosis of unspecified type of vessel, igiugig or graft 04/19/2019 Overview: s/p CABG 2000, first he knew of CAD Obesity, unspecified 03/30/2017 Overview: Max weight 260fall documented as of this encounter (statuses as of 02/18/2022) [facility] History of Past illness Narrative* Problem Noted Date Resolved Date Obesity (BMI 30.0-34.9) 03/30/2017 10/20/19 19 Coronary atherosclerosis of unspecified type of vessel, igiugig or graft 04/19/2019 Overview: s/p CABG 2000, first he knew of CAD Obesity, unspecified 03/30/2017 Overview: Max weight 260fall documented as of this encounter (statuses as of 03/12/2022) [facility] History of Past illness Narrative* Problem Noted Date Resolved Date Obesity (BMI 30.0-34.9) 03/30/2017 10/20/19 19 Coronary atherosclerosis of unspecified type of vessel, igiugig or graft 04/19/2019 Overview: s/p CABG 1999, first he knew of CAD Obesity, unspecified 03/30/2017 Overview: Max weight 260fall documented as of this encounter (statuses as of 04/09/2022) [facility] History of Past illness Narrative* Problem Noted Date Resolved Date Obesity (BMI 30.0-34.9) 03/30/2017 10/20/19 19 Coronary atherosclerosis of unspecified type of vessel, igiugig or graft 04/19/2019 Overview: s/p CABG 1999, first he knew of CAD Obesity, unspecified 03/30/2017 Overview: Max weight 260fall documented as of this encounter (statuses as of 04/12/2022) [facility] History of Past illness Narrative* Problem Noted Date Resolved Date Obesity (BMI 30.0-34.9) 03/30/2017 10/20/19 Coronary atherosclerosis of unspecified type of vessel, igiugig or graft 04/19/2019 Overview: s/p CABG 2000, first he knew of CAD Obesity, unspecified 03/30/2017 Overview: Max weight 260fall documented as of this encounter (statuses as of 04/14/2022) [facility] History of Past illness Narrative* Problem Noted Date Resolved Date Obesity (BMI 30.0-34.9) 03/30/2017 10/20/19 19 Coronary atherosclerosis of unspecified type of vessel, igiugig or graft 04/19/2019 Overview: s/p CABG 2000, first he knew of CAD Obesity, unspecified 03/30/2017 Overview: Max weight 260fall documented as of this encounter (statuses as of 04/19/2022) [facility] History of Past illness Narrative* Problem Noted Date Resolved Date Obesity (BMI 30.0-34.9) 03/30/2017 10/20/19 19 Coronary atherosclerosis of unspecified type of vessel, igiugig or graft 04/19/2019 Overview: s/p CABG 1999, first he knew of CAD Obesity, unspecified 03/30/2017 Overview: Max weight 260fall documented as of this encounter (statuses as of 04/20/2022) [facility] History of Past illness Narrative* Problem Noted Date Resolved Date Obesity (BMI 30.0-34.9) 03/30/2017 10/20/19 19 Coronary atherosclerosis of unspecified type of vessel, igiugig or graft 04/19/2019 Overview: s/p CABG 2000, first he knew of CAD Obesity, unspecified 03/30/2017 Overview: Max weight 260fall documented as of this encounter (statuses as of 04/26/2022) [facility] History of Past illness Narrative* Problem Noted Date Resolved Date Obesity (BMI 30.0-34.9) 03/30/2017 10/20/19 Coronary atherosclerosis of unspecified type of vessel, igiugig or graft 04/19/2019 Overview: s/p CABG 2000, first he knew of CAD Obesity, unspecified 03/30/2017 Overview: Max weight 260fall documented as of this encounter (statuses as of 05/04/2022) [facility]2017 History of Past illness Narrative* Problem Noted Date Resolved Date Obesity (BMI 30.0-34.9) 03/30/2017 10/20/19 Coronary atherosclerosis of unspecified type of vessel, igiugig or graft 04/19/2019 Overview: s/p CABG 1999, first he knew of CAD Obesity, unspecified 03/30/2017 Overview: Max weight 260fall documented as of this encounter (statuses as of 05/11/2022) [facility] History of Past illness Narrative* Problem Noted Date Resolved Date Obesity (BMI 30.0-34.9) 03/30/2017 10/20/19 19 Coronary atherosclerosis of unspecified type of vessel, igiugig or graft 04/19/2019 Overview: s/p CABG 1999, first he knew of CAD Obesity, unspecified 03/30/2017 Overview: Max weight 260fall documented as of this encounter (statuses as of 05/20/2022) [facility] History of Past illness Narrative* Problem Noted Date Resolved Date Obesity (BMI 30.0-34.9) 03/30/2017 10/20/19 19 Coronary atherosclerosis of unspecified type of vessel, igiugig or graft 04/19/2019 Overview: s/p CABG 1999, first he knew of CAD Obesity, unspecified 03/30/2017 Overview: Max weight 260, fall 2007 documented as of this encounter (statuses as of 05/25/2022) [facility] History of Past illness Narrative* Problem Noted Date Resolved Date Obesity (BMI 30.0-34.9) 03/30/2017 10/20/19 19 Coronary atherosclerosis of unspecified type of vessel, igiugig or graft 04/19/2019 Overview: s/p CABG 2000, first he knew of CAD Obesity, unspecified 03/30/2017 Overview: Max weight 260fall documented as of this encounter (statuses as of 06/08/2022) [facility] History of Past illness Narrative* Problem Noted Date Resolved Date Obesity (BMI 30.0-34.9) 03/30/2017 10/20/19 19 Coronary atherosclerosis of unspecified type of vessel, igiugig or graft 04/19/2019 Overview: s/p CABG 2000, first he knew of CAD Obesity, unspecified 03/30/2017 Overview: Max weight 260, fall 2006 documented as of this encounter (statuses as of 06/09/2022) [facility] History of Past illness Narrative* Problem Noted Date Resolved Date Obesity (BMI 30.0-34.9) 03/30/2017 10/20/19 19 Coronary atherosclerosis of unspecified type of vessel, igiugig or graft 04/19/2019 Overview: s/p CABG 2000, first he knew of CAD Obesity, unspecified 03/30/2017 Overview: Max weight 260fall documented as of this encounter (statuses as of 06/14/2022) [facility] History of Past illness Narrative* Problem Noted Date Resolved Date Obesity (BMI 30.0-34.9) 03/30/2017 10/20/19 19 Coronary atherosclerosis of unspecified type of vessel, igiugig or graft 04/19/2019 Overview: s/p CABG 1999, first he knew of CAD Obesity, unspecified 03/30/2017 Overview: Max weight 260fall documented as of this encounter (statuses as of 06/16/2022) [facility] History of Past illness Narrative* Problem Noted Date Resolved Date Obesity (BMI 30.0-34.9) 03/30/2017 10/20/19 19 Coronary atherosclerosis of unspecified type of vessel, igiugig or graft 04/19/2019 Overview: s/p CABG 1999, first he knew of CAD Obesity, unspecified 03/30/2017 Overview: Max weight 260fall documented as of this encounter (statuses as of 06/17/2022) [facility] History of Past illness Narrative* Problem Noted Date Resolved Date Obesity (BMI 30.0-34.9) 03/30/2017 10/20/19 Coronary atherosclerosis of unspecified type of vessel, igiugig or graft 04/19/2019 Overview: s/p CABG 1999, first he knew of CAD Obesity, unspecified 03/30/2017 Overview: Max weight 260, fall 2006 documented as of this encounter (statuses as of 06/22/2022) [facility] History of Past illness Narrative* Problem Noted Date Resolved Date Obesity (BMI 30.0-34.9) 03/30/2017 10/20/19 Coronary atherosclerosis of unspecified type of vessel, igiugig or graft 04/19/2019 Overview: s/p CABG 1999, first he knew of CAD Obesity, unspecified 03/30/2017 Overview: Max weight 260fall documented as of this encounter (statuses as of 06/24/2022) [facility] History of Past illness Narrative* Problem Noted Date Resolved Date Obesity (BMI 30.0-34.9) 03/30/2017 10/20/19 Coronary atherosclerosis of unspecified type of vessel, igiugig or graft 04/19/2019 Overview: s/p CABG 1999, first he knew of CAD Obesity, unspecified 03/30/2017 Overview: Max weight 260fall documented as of this encounter (statuses as of 06/25/2022) [facility] History of Past illness Narrative* Problem Noted Date Resolved Date Obesity (BMI 30.0-34.9) 03/30/2017 10/20/19 Coronary atherosclerosis of unspecified type of vessel, igiugig or graft 04/19/2019 Overview: s/p CABG 1999, first he knew of CAD Obesity, unspecified 03/30/2017 Overview: Max weight 260fall documented as of this encounter (statuses as of 06/28/2022) [facility] History of Past illness Narrative* Problem Noted Date Resolved Date Obesity (BMI 30.0-34.9) 03/30/2017 10/20/19 Coronary atherosclerosis of unspecified type of vessel, igiugig or graft 04/19/2019 Overview: s/p CABG 1999, first he knew of CAD Obesity, unspecified 03/30/2017 Overview: Max weight 260, fall 2006 documented as of this encounter (statuses as of 07/21/2022) [facility] History of Past illness Narrative* Problem Noted Date Resolved Date Obesity (BMI 30.0-34.9) 03/30/2017 10/20/19 Coronary atherosclerosis of unspecified type of vessel, igiugig or graft 04/19/2019 Overview: s/p CABG 1999, first he knew of CAD Obesity, unspecified 03/30/2017 Overview: Max weight 260fall documented as of this encounter (statuses as of 07/22/2022) [facility] History of Past illness Narrative* Problem Noted Date Resolved Date Obesity (BMI 30.0-34.9) 03/30/2017 10/20/19 19 Coronary atherosclerosis of unspecified type of vessel, igiugig or graft 04/19/2019 Overview: s/p CABG 2000, first he knew of CAD Obesity, unspecified 03/30/2017 Overview: Max weight 260fall documented as of this encounter (statuses as of 07/29/2022) [facility] History of Past illness Narrative* Problem Noted Date Resolved Date Obesity (BMI 30.0-34.9) 03/30/2017 10/20/19 Coronary atherosclerosis of unspecified type of vessel, igiugig or graft 04/19/2019 Overview: s/p CABG 2000, first he knew of CAD Obesity, unspecified 03/30/2017 Overview: Max weight 260fall documented as of this encounter (statuses as of 09/15/2022) [facility] History of Past illness Narrative* Problem Noted Date Resolved Date Obesity (BMI 30.0-34.9) 03/30/2017 10/20/19 Coronary atherosclerosis of unspecified type of vessel, igiugig or graft 04/19/2019 Overview: s/p CABG 1999, first he knew of CAD Obesity, unspecified 03/30/2017 Overview: Max weight 260fall documented as of this encounter (statuses as of 09/15/2022) [facility] History of Past illness Narrative* Problem Noted Date Resolved Date Obesity (BMI 30.0-34.9) 03/30/2017 10/20/19 19 Coronary atherosclerosis of unspecified type of vessel, igiugig or graft 04/19/2019 Overview: s/p CABG 1999, first he knew of CAD Obesity, unspecified 03/30/2017 Overview: Max weight 260fall documented as of this encounter (statuses as of 09/16/2022) [facility] History of Past illness Narrative* Problem Noted Date Resolved Date Obesity (BMI 30.0-34.9) 03/30/2017 02/08/20 19 Coronary atherosclerosis of unspecified type of vessel, igiugig or graft 04/19/2019 Overview: s/p CABG 2000, first he knew of CAD Obesity, unspecified 03/30/2017 Overview: Max weight 260, fall 2006 documented as of this encounter (statuses as of 10/07/2022) [facility] History of Past illness Narrative* Problem Noted Date Resolved Date Obesity (BMI 30.0-34.9) 03/30/2017 10/20/19 19 Coronary atherosclerosis of unspecified type of vessel, igiugig or graft 04/19/2019 Overview: s/p CABG 1999, first he knew of CAD Obesity, unspecified 03/30/2017 Overview: Max weight 260, fall 2006 documented as of this encounter (statuses as of 10/08/2022) [facility] History of Past illness Narrative* Problem Noted Date Resolved Date Obesity (BMI 30.0-34.9) 03/30/2017 10/20/19 19 Coronary atherosclerosis of unspecified type of vessel, igiugig or graft 04/19/2019 Overview: s/p CABG 1999, first he knew of CAD Obesity, unspecified 03/30/2017 Overview: Max weight 260, fall 2006 documented as of this encounter (statuses as of 10/11/2022) [facility] Abnormal electro[facility]ogram Nonspecific abnormal electrocardiogram (ECG) (EKG[facility] Essential hypertension- Primary Unspecified essential hypertension [facility] Diagnosis Benign nodular prostatic hyperplasia without lower urinary tract symptoms [facility] Diagnosis Essential hypertension- Primary Unspecified essential hypertension [facility]* Diagnosis SOB (shortness of breath)- Primary Shortness of breath Hypothyroidism, unspecified type Essential hypertension Unspecified essential hypertension Pure hypercholesterolemia PAD (peripheral artery disease) (HCC) Peripheral vascular disease, unspecified IFG (impaired fasting glucose) Impaired fasting glucose Vitamin D deficiency Unspecified vitamin D deficiency Obesity, Class I, BMI 30-34.9 Obesity, unspecified [facility] SOB (shortness of breath) Shortness of breath [facility] Diagnosis Restrictive airway disease- Primary Other diseases of lung, not elsewhere classified [facility] Diagnosis Abnormal stress test- Primary Other nonspecific abnormal cardiovascular system function study Coronary artery disease involving igiugig coronary artery of igiugig heart without angina pectoris S/P CABG x 3 Postsurgical aortocoronary bypass status Essential hypertension Unspecified essential hypertension Mixed hyperlipidemia [facility] Hypothyroidism, unspecified type- Primary Restrictive airway disease Other diseases of lung, not elsewhere classified Essential hypertension Unspecified essential hypertension Pure hypercholesterolemia PAD (peripheral artery disease) (HCC) Peripheral vascular disease, unspecified IFG (impaired fasting glucose) Impaired fasting glucose Obesity, Class I, BMI 30-34.9 Obesity, unspecified Benign nodular prostatic hyperplasia without lower urinary tract symptoms Moderate persistent asthma, uncomplicated Unspecified asthma [facility] Diagnosis Primary osteoarthritis of both knees- Primary Primary localized osteoarthrosis, lower leg [facility] Diagnosis Bilateral carotid artery stenosis- Primary Occlusion and stenosis of carotid artery without mention of cerebral infarction Peripheral vascular disease (HCC) Peripheral vascular disease, unspecified [facility] Diagnosis Primary osteoarthritis of both knees- Primary Primary localized osteoarthrosis, lower leg [facility] Diagnosis Numbness and tingling of foot- Primary Disturbance of skin sensation Essential hypertension Unspecified essential hypertension Hypothyroidism, unspecified type Benign nodular prostatic hyperplasia without lower urinary tract symptoms Pure hypercholesterolemia Encounter for immunization Need for other specified prophylactic vaccination against single bacterial disease Restrictive airway disease Other diseases of lung, not elsewhere classified Seasonal allergic rhinitis due to other allergic trigger Mixed hyperlipidemia Chronic pain of both knees [facility] Diagnosis Essential hypertension Unspecified essential hypertension [facility] Coronary artery disease involving igiugig coronary artery of igiugig heart without angina pectoris- Primary Hx of CABG Postsurgical aortocoronary bypass status Essential hypertension Unspecified essential hypertension Hyperlipidemia LDL goal <70 Other and unspecified hyperlipidemia [facility]* Diagnosis Benign nodular prostatic hyperplasia without lower urinary tract symptoms Screening for prostate cancer Special screening for malignant neoplasm of prostate [facility] Diagnosis Hereditary and idiopathic peripheral neuropathy- Primary Unspecified hereditary and idiopathic peripheral neuropathy PAD (peripheral artery disease) (HCC) Peripheral vascular disease, unspecified Hypothyroidism, unspecified type Essential hypertension Unspecified essential hypertension Mixed hyperlipidemia Screening for prostate cancer Special screening for malignant neoplasm of prostate Benign nodular prostatic hyperplasia without lower urinary tract symptoms Chronic obstructive pulmonary disease, unspecified COPD type ([facility]) IFG (impaired fasting glucose) Impaired fasting glucose [facility] Diagnosis Screening for nephropathy- Primary Bilateral carotid artery stenosis Occlusion and stenosis of carotid artery without mention of cerebral infarction Peripheral vascular disease (HCC) Peripheral vascular disease, unspecified [facility] Diagnosis Bilateral leg edema- Primary Edema [facility]* Diagnosis Localized swelling of both lower legs- Primary SOB (shortness of breath) Shortness of breath [facility] Diagnosis Localized swelling of both lower legs- Primary [facility]* Diagnosis Localized swelling of both lower legs SOB (shortness of breath) Shortness of breath [facility]* Diagnosis Pain in both knees, unspecified chronicity- Primary [facility]* Diagnosis Primary osteoarthritis of both knees- Primary Primary localized osteoarthrosis, lower leg Chronic pain of both knees Chondrocalcinosis of knee, unspecified laterality [facility]* Diagnosis Coronary artery disease involving igiugig coronary artery of igiugig heart without angina pectoris- Primary Essential hypertension Unspecified essential hypertension Hyperlipidemia LDL goal <70 Other and unspecified hyperlipidemia S/P CABG x 3 Postsurgical aortocoronary bypass status PAD (peripheral artery disease) ([facility]) Peripheral vascular disease, unspecified Bilateral carotid artery stenosis Occlusion and stenosis of carotid artery without mention of cerebral infarction Hyperkalemia Hyperpotassemia [facility] Diagnosis Hereditary and idiopathic peripheral neuropathy- Primary Unspecified hereditary and idiopathic peripheral neuropathy Dizziness Dizziness and giddiness PAD (peripheral artery disease) (HCC) Peripheral vascular disease, unspecified Hypothyroidism, unspecified type Essential hypertension Unspecified essential hypertension Bilateral calf pain Pain in limb Mixed hyperlipidemia [facility] Diagnosis Procedure not carried out- Primary Procedure not carried out for other reasons documented in this encounter [facility] note* Diagnosis SOB (shortness of breath)- Primary Shortness of breath Exercise hypoxemia Hypoxemia Sinus congestion Other diseases of nasal cavity and sinuses documented in this encounter [facility] note* Diagnosis SOB (shortness of breath) Shortness of breath documented in this encounter [facility] note* Diagnosis Moderate COPD (chronic obstructive pulmonary disease) (HCC)- Primary Chronic airway obstruction, not elsewhere classified Hypoxemia Former smoker Personal history of tobacco use, presenting hazards to health Need for influenza vaccination Need for prophylactic vaccination and inoculation against influenza documented in this encounter [facility] note* Diagnosis SDH (subdural hematoma) (HCC)- Primary Subdural hemorrhage documented in this encounter [facility] for referral (narrative)* Diagnostic Procedure Only (Routine) - Closed Specialty Diagnoses / Procedures Referred By Adrian ho Referred To Contact [facility] Diagnoses Abnormal electrocardiogram Procedures NM CARDIAC PERF STRESS/PHARM MYOCARDIAL SPECT MULTIPLE STUDIES Gideon Bueno DO [address] [place] [address] [facility] [address] [place] [address] Referral ID Status Reason Start Date Expiration Date V isits Requested Visits Authorized [id number] Closed Auto-Generate d Referral 11/30/2021 12/30/2022 1 1 [facility] for referral (narrative)* Outpatient Procedure (Routine) - Authorized Specialty Diagnoses / Procedures Referred By Contac t Referred To Contact [facility] Diagnoses SOB (shortness of breath) Procedures SPIROMETRY - BASELINE AND POST DILATOR BRNCDILAT RSPSE SPMTRY PRE&POST-BRNCDILAT ADMN Husam Deras DO [address] [place] [address] [facility] [place] [address] [place] [address] Referral ID Status Reason Start Date Expiration Date Visits Requested Visits Authorized [id number] Authorized Auto-Generat ed Referral 02/01/2022 03/03/2023 1 1 * Outpatient Procedure (Routine) - Authorized Specialty Diagnoses / Procedures Referred By Contac t Referred To Contact [facility] [place] Diagnoses SOB (shortness of breath) Procedures ECHO ECHO TTHRC R-T 2D W/WOM-MODE COMPL SPEC&COLR D Husam Deras, DO [address] [place] [address] [facility] [place] [address] Referral ID Status Reason Start Date Expiration Date Visits Requested Visits Authorized [id number] Authorized Auto-Generat ed Referral 02/01/2022 02/01/2023 1 1 [facility] for referral (narrative)* Outpatient Procedure (Routine) - Pending Review Specialty Diagnoses / Procedures Referred By Contac t Referred To Contact [facility] [place] Diagnoses Bilateral carotid artery stenosis Procedures US CAROTID ARTERIES [facility] DUPLEX SCAN EXTRACRANIAL ART COMPL BI STUDY Mena Machuca, DO [address] [place] [address] [address] Referral ID Status Reason Start Date Expiration Date Visits Requested Visits Authorized [id number] Pending Review Auto-Generat ed Referral 06/16/2023 1 1 * Outpatient Procedure (Routine) - Pending Review Specialty Diagnoses / Procedures Referred By Contac t Referred To Contact [facility] Diagnoses Peripheral vascular disease (HCC) Procedures PVR ANK/COOK/TOE [facility] NON-INVAS PHYSIOLOGIC STD EXTREMITY ART 2 LEVEL Mena Machuca, DO [address] [place] [address] [address] Referral ID Status Reason Start Date Expiration Date Visits Requested Visits Authorized [id number] Pending Review Auto-Generat ed Referral 2 06/16/2023 1 1 [facility] for referral (narrative)* Outpatient Procedure (Routine) - Authorized Specialty Diagnoses / Procedures Referred By Contac t Referred To Contact [facility] Diagnoses Peripheral vascular disease (HCC) Procedures PVR LEG W/EXC [facility] N-INVAS PHYSIOLOGIC STD LXTR ART COMPL Mena Coreas, DO [address] [place] [address] [address] Referral ID Status Reason Start Date Expiration Date Visits Requested Visits Authorized [id number] Authorized Auto-Generat ed Referral 03/08/2023 03/07/2024 1 1 * Outpatient Procedure (Routine) - Authorized Specialty Diagnoses / Procedures Referred By Contac t Referred To Contact [facility] Diagnoses Bilateral carotid artery stenosis Procedures US CAROTID ARTERIES [facility] DUPLEX SCAN EXTRACRANIAL ART COMPL BI STUDY Mena Machuca, DO [address] [place] [address] [address] Referral ID Status Reason Start Date Expiration Date Visits Requested Visits Authorized [id number] Authorized Auto-Generat ed Referral 03/08/2023 03/07/2024 1 1 [facility] for referral (narrative)* Outpatient Procedure (Routine) - Authorized Specialty Diagnoses / Procedures Referred By Contac t Referred To Contact [facility] Diagnoses Localized swelling of both lower legs SOB (shortness of breath) Procedures ECHO ECHO TTHRC R-T 2D W/WOM-MODE COMPL SPEC&COLR Harvinder Link, TECHNICAL SALES ADVISOR.[facility] [address] [place] [address] [facility] [address] [place] [address] Referral ID Status Reason Start Date Expiration Date Visits Requested Visits Authorized [id number] Authorized Auto-Generat ed Referral 03/18/2023 03/17/2024 1 1 * Outpatient Procedure (Routine) - Closed Specialty Diagnoses / Procedures Referred By Contac t Referred To Contact [facility] [place] Diagnoses Localized swelling of both lower legs Procedures ECG COMPLETE ECG ROUTINE ECG W/LEAST 12 LDS W/I&R Harvinder Verde APRN.CNP [address] [place] [address] [address] Referral ID Status Reason Start Date Expiration Date V isits Requested Visits Authorized [id number] Closed Auto-Generate d Referral 03/18/2023 03/17/2024 1 [facility] Diagnostic Procedure Only (Routine) - Pending Review Specialty Diagnoses / Procedures Referred By Contac t Referred To Contact XR IMAGING Diagnoses Pain in both knees, unspecified chronicity Procedures XR KNEE GENERAL 4V AP BOTH/PA BOTH/LAT/MERC BILATERAL RADIOLOGIC EXAM KNEE COMPLETE 4/MORE VIEWS Seble Zepeda PA-C [address] [place] [address] Xr Imaging Referral ID Status Reason Start Date Expiration Date Visits Requested Visits Authorized [id number] Pending Review Auto-Generat ed Referral 04/13/2023 05/12/2024 1 1 [facility] Outpatient Procedure (Routine) - Authorized Specialty Diagnoses / Procedures Referred By Contac t Referred To Contact [facility] [place] Diagnoses Coronary artery disease involving igiugig coronary artery of igiugig heart without angina pectoris Essential hypertension Hyperlipidemia LDL goal <70 S/P CABG x 3 PAD (peripheral artery disease) (HCC) Bilateral carotid artery stenosis Hyperkalemia Procedures PVR LEG W/EXC [facility] N-INVAS PHYSIOLOGIC STD LXTR ART COMPL BI Moises, Gideon Dixon DO [address] [place] [address] [facility] [place] [address] [place] [address] Referral ID Status Reason Start Date Expiration Date Visits Requested Visits Authorized [id number] Authorized Auto-Generat ed Referral 04/26/2023 04/25/2024 1 1 [facility] for referral (narrative)* Outpatient Procedure (Routine) - Authorized Specialty Diagnoses / Procedures Referred By Contac t Referred To Contact [facility] Diagnoses SOB (shortness of breath) Exercise hypoxemia Procedures SIX MINUTE WALK CARDIOPULMONARY EXERCISE STRESS PodlogarJocelin APRN.CNP [address] [place] [address] [facility] [place] [address] [place], [place] [id number] Referral ID Status Reason Start Date Expiration Date Visits Requested Visits Authorized [id number] Authorized Auto-Generat ed Referral 07/20/2023 09/11/2023 1 1 [facility] for referral (narrative)* Outpatient Procedure (Routine) - Closed Specialty Diagnoses / Procedures Referred By Contac t Referred To Contact [facility] Diagnoses SOB (shortness of breath) Procedures SPIROMETRY WITH DILATOR IF OBSTRUCTED BRNCDILAT RSPSE SPMTRY PRE&POST-BRNCDILAT Aurelia Ball MD [address] [place] [address] Res[facility] [place] [address] [place], [place] [id number] Referral ID Status Reason Start Date Expiration Date V isits Requested Visits Authorized [id number] Closed Auto-Generate d Referral 07/21/2023 09/11/2023 1 1 * Outpatient Procedure (Routine) - Closed Specialty Diagnoses / Procedures Referred By Contac t Referred To Contact [facility] Diagnoses SOB (shortness of breath) Procedures OXIMETRY WITH AMBULATION NONINVASIVE EAR/PULSE OXIMETRY MULTIPLE DETER Saul, Aurelia Benz MD [address] [place] [address] [facility] [place] [address] [place] [id number] Referral ID Status Reason Start Date Expiration Date V isits Requested Visits Authorized [id number] Closed Auto-Generate d Referral 07/21/2023 09/11/2023 1 1 [facility] for visit Narrative* Diagnostic Procedure Only (Routine) - Closed Specialty Diagnoses / Procedures [facility] To [facility] Diagnoses Abnormal electrocardiogram Procedures NM CARDIAC PERF STRESS/PHARM MYOCARDIAL SPECT MULTIPLE STUDIES Gideon Bueno, [address] [place] [address] Molecular & Functional Imaging [address] [id number] Referral ID Status Reason Start Date Expiration Date V isits Requested Visits Authorized [id number] Closed Auto-Generate d Referral 11/30/2021 12/30/2022 1 1 [facility] for visit Narrative* Outpatient Procedure (Routine) - Closed Specialty Diagnoses / Procedures [facility] Diagnoses Localized swelling of both lower legs SOB (shortness of breath) Procedures ECHO ECHO TTHRC R-T 2D W/WOM-MODE COMPL SPEC&COLR D Harvinder Verde, TECHNICAL SALES ADVISOR.PRECIPITATOR OPERATOR [address] [place] [address] [facility] [place] [address] [place] [address] Referral ID Status Reason Start Date Expiration Date V isits Requested Visits Authorized [id number] Closed Auto-Generate d Referral 03/18/2023 03/17/2024 1 1 [facility] Summary Purpose Family History No Family History Records FoundNo Family History Records FoundNo Family History Records FoundNo Family History Records Found Advance Directives No Advanced Directives Records FoundDocuments on File Type Date Recorded 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 Wait 10-20 seconds, then administer the radionuclide myocardial perfusion imaging agent. Given 12/11/2021 8:30 AM EDT 0.4 mg Inactive Administered Medications - up to 3 most recent administrations Medication Order MAR Action Action Date Dose Rate Site sodium hyaluronate 20 mg injection (EUFLEXXA) 20 mg, Injection - FOR ORTHO USE ONLY, ONE TIME INJECTION, 1 dose, Starting on Tue06/14/22 at 1348, Until Tue06/14/22 at 1348 Given 06/14/2022 1:48 PM EDT 20 mg Knee, Left sodium hyaluronate 20 mg injection (EUFLEXXA) 20 mg, Injection - FOR ORTHO USE ONLY, ONE TIME INJECTION, 1 dose, Starting on Tue06/14/22 at 1348, Until Tue06/14/22 at 1348 Given 06/14/2022 1:48 PM EDT 20 mg Knee, Right Inactive Administered Medications - up to 3 most recent administrations Medication Order MAR Action Action Date Dose Rate Site sodium hyaluronate 20 mg injection (EUFLEXXA) 20 mg, Injection - FOR ORTHO USE ONLY, ONE TIME INJECTION, 1 dose, Starting on Tue06/28/22 at 1328, Until Tue06/28/22 at 1328 Given 06/28/2022 1:28 PM EDT 20 mg Knee, Left sodium hyaluronate 20 mg injection (EUFLEXXA) 20 mg, Injection - FOR ORTHO USE ONLY, ONE TIME INJECTION, 1 dose, Starting on Tue06/28/22 at 1328, Until Tue06/28/22 at 1328 Given 06/28/2022 1:28 PM EDT 20 mg Knee, Right Inactive Administered Medications - up to 3 most recent administrations Medication Order MAR Action Action Date Dose Rate Site betamethasone acetate-betamethasone sodium phosphate 6 mg injection (CELESTONE) 6 mg, Injection - FOR ORTHO USE ONLY, ONE TIME INJECTION, 1 dose, Starting on Tue04/18/23 at 1038, Until Tue04/18/23 at 1038 Given 04/18/2023 10:38 AM EDT 6 mg Knee, Left betamethasone acetate-betamethasone sodium phosphate 6 mg injection (CELESTONE) 6 mg, Injection - FOR ORTHO USE ONLY, ONE TIME INJECTION, 1 dose, Starting on Tue04/18/23 at 1038, Until Tue04/18/23 at 1038 Given 04/18/2023 10:38 AM EDT 6 mg Knee, Right lidocaine (PF) 10 mg/mL (1 %) 5 mL injection (XYLOCAINE) 5 mL, Injection - FOR ORTHO USE ONLY, ONE TIME INJECTION, 1 dose, Starting on Tue04/18/23 at 1038, Until Tue04/18/23 at 1038 Given 04/18/2023 10:38 AM EDT 5 mL Knee, Left lidocaine (PF) 10 mg/mL (1 %) 5 mL injection (XYLOCAINE) 5 mL, Injection - FOR ORTHO USE ONLY, ONE TIME INJECTION, 1 dose, Starting on Tue04/18/23 at 1038, Until Tue04/18/23 at 1038 Given 04/18/2023 10:38 AM EDT 5 mL Knee, Right Reason for Referral Specialty Diagnoses / Procedures Referred By Contac t Referred To Contact CT IMAGING Diagnoses SDH (subdural hematoma) (HCC) Procedures CT BRAIN WO IVCON CT HEAD/BRAIN W/O CONTRAST MATERIAL Deanna Aguilar, ELENITA [address] [place] [address] [place] [id number] Referral ID Status Reason Start Date Expiration Date Visits Requested Visits Authorized [id number] Authorized Auto-Generat ed Referral 3 09/25/2024 1 1 Additional Source Comments (unrecognized sect ion and content) No Status Records FoundNo Status Records FoundNo Status Records FoundNo Status Records Found INFORMATION SOURCE (unrecogn ized section and content) DATE CREATED AUTHOR AUTHOR'S ORGANIZ ATION 04/27/2023 [facility] DATE CREATED AUTHOR AUTHOR'S ORGANIZ ATION 09/09/2023 [facility] DATE CREATED AUTHOR AUTHOR'S ORGANIZ ATION 09/12/2023 [facility] Source Comments (unrecognize d section and content) In the event this informatio n is protected by the Federal Confidentiality of Alcohol and Drug Abuse Patient Records regulations: The Federal rules restrict any use of the information to criminally investigate or prosecute any alcohol or drug abuse patient.[facility] the event this information is protected by the Federal Confidentiality of Alcohol and Drug Abuse Patient Records regulations: The Federal rules restrict any use of the information to criminally investigate or prosecute any alcohol or drug abuse patient.[facility] CenterIn the event this information is protected by the Federal Confidentiality of Alcohol and Drug Abuse Patient Records regulations: The Federal rules restrict any use of the information to criminally investigate or prosecute any alcohol or drug abuse patient.[facility] CenterIn the event this information is protected by the Federal Confidentiality of Alcohol and Drug Abuse Patient Records regulations: The Federal rules restrict any use of the information to criminally investigate or prosecute any alcohol or drug abuse patient.[facility] CenterIn the event this information is protected by the Federal Confidentiality of Alcohol and Drug Abuse Patient Records regulations: The Federal rules restrict any use of the information to criminally investigate or prosecute any alcohol or drug abuse patient.[facility] CenterIn the event this information is protected by the Federal Confidentiality of Alcohol and Drug Abuse Patient Records regulations: The Federal rules restrict any use of the information to criminally investigate or prosecute any alcohol or drug abuse patient.[facility] CenterIn the event this information is protected by the Federal Confidentiality of Alcohol and Drug Abuse Patient Records regulations: The Federal rules restrict any use of the information to criminally investigate or prosecute any alcohol or drug abuse patient.[facility] CenterIn the event this information is protected by the Federal Confidentiality of Alcohol and Drug Abuse Patient Records regulations: The Federal rules restrict any use of the information to criminally investigate or prosecute any alcohol or drug abuse patient.[facility] CenterIn the event this information is protected by the Federal Confidentiality of Alcohol and Drug Abuse Patient Records regulations: The Federal rules restrict any use of the information to criminally investigate or prosecute any alcohol or drug abuse patient.[facility] CenterIn the event this information is protected by the Federal Confidentiality of Alcohol and Drug Abuse Patient Records regulations: The Federal rules restrict any use of the information to criminally investigate or prosecute any alcohol or drug abuse patient.[facility] CenterIn the event this information is protected by the Federal Confidentiality of Alcohol and Drug Abuse Patient Records regulations: The Federal rules restrict any use of the information to criminally investigate or prosecute any alcohol or drug abuse patient.[facility] CenterIn the event this information is protected by the Federal Confidentiality of Alcohol and Drug Abuse Patient Records regulations: The Federal rules restrict any use of the information to criminally investigate or prosecute any alcohol or drug abuse patient.[facility] CenterIn the event this information is protected by the Federal Confidentiality of Alcohol and Drug Abuse Patient Records regulations: The Federal rules restrict any use of the information to criminally investigate or prosecute any alcohol or drug abuse patient.[facility] CenterIn the event this information is protected by the Federal Confidentiality of Alcohol and Drug Abuse Patient Records regulations: The Federal rules restrict any use of the information to criminally investigate or prosecute any alcohol or drug abuse patient.[facility] CenterIn the event this information is protected by the Federal Confidentiality of Alcohol and Drug Abuse Patient Records regulations: The Federal rules restrict any use of the information to criminally investigate or prosecute any alcohol or drug abuse patient.[facility] CenterIn the event this information is protected by the Federal Confidentiality of Alcohol and Drug Abuse Patient Records regulations: The Federal rules restrict any use of the information to criminally investigate or prosecute any alcohol or drug abuse patient.[facility] CenterIn the event this information is protected by the Federal Confidentiality of Alcohol and Drug Abuse Patient Records regulations: The Federal rules restrict any use of the information to criminally investigate or prosecute any alcohol or drug abuse patient.[facility] CenterIn the event this information is protected by the Federal Confidentiality of Alcohol and Drug Abuse Patient Records regulations: The Federal rules restrict any use of the information to criminally investigate or prosecute any alcohol or drug abuse patient.[facility] CenterIn the event this information is protected by the Federal Confidentiality of Alcohol and Drug Abuse Patient Records regulations: The Federal rules restrict any use of the information to criminally investigate or prosecute any alcohol or drug abuse patient.[facility] CenterIn the event this information is protected by the Federal Confidentiality of Alcohol and Drug Abuse Patient Records regulations: The Federal rules restrict any use of the information to criminally investigate or prosecute any alcohol or drug abuse patient.[facility] CenterIn the event this information is protected by the Federal Confidentiality of Alcohol and Drug Abuse Patient Records regulations: The Federal rules restrict any use of the information to criminally investigate or prosecute any alcohol or drug abuse patient.[facility] CenterIn the event this information is protected by the Federal Confidentiality of Alcohol and Drug Abuse Patient Records regulations: The Federal rules restrict any use of the information to criminally investigate or prosecute any alcohol or drug abuse patient.[facility] CenterIn the event this information is protected by the Federal Confidentiality of Alcohol and Drug Abuse Patient Records regulations: The Federal rules restrict any use of the information to criminally investigate or prosecute any alcohol or drug abuse patient.[facility] CenterIn the event this information is protected by the Federal Confidentiality of Alcohol and Drug Abuse Patient Records regulations: The Federal rules restrict any use of the information to criminally investigate or prosecute any alcohol or drug abuse patient.[facility] CenterIn the event this information is protected by the Federal Confidentiality of Alcohol and Drug Abuse Patient Records regulations: The Federal rules restrict any use of the information to criminally investigate or prosecute any alcohol or drug abuse patient.[facility] CenterIn the event this information is protected by the Federal Confidentiality of Alcohol and Drug Abuse Patient Records regulations: The Federal rules restrict any use of the information to criminally investigate or prosecute any alcohol or drug abuse patient.[facility] CenterIn the event this information is protected by the Federal Confidentiality of Alcohol and Drug Abuse Patient Records regulations: The Federal rules restrict any use of the information to criminally investigate or prosecute any alcohol or drug abuse patient.[facility] CenterIn the event this information is protected by the Federal Confidentiality of Alcohol and Drug Abuse Patient Records regulations: The Federal rules restrict any use of the information to criminally investigate or prosecute any alcohol or drug abuse patient.[facility] CenterIn the event this information is protected by the Federal Confidentiality of Alcohol and Drug Abuse Patient Records regulations: The Federal rules restrict any use of the information to criminally investigate or prosecute any alcohol or drug abuse patient.[facility] CenterIn the event this information is protected by the Federal Confidentiality of Alcohol and Drug Abuse Patient Records regulations: The Federal rules restrict any use of the information to criminally investigate or prosecute any alcohol or drug abuse patient.[facility] CenterIn the event this information is protected by the Federal Confidentiality of Alcohol and Drug Abuse Patient Records regulations: The Federal rules restrict any use of the information to criminally investigate or prosecute any alcohol or drug abuse patient.[facility] CenterIn the event this information is protected by the Federal Confidentiality of Alcohol and Drug Abuse Patient Records regulations: The Federal rules restrict any use of the information to criminally investigate or prosecute any alcohol or drug abuse patient.[facility] CenterIn the event this information is protected by the Federal Confidentiality of Alcohol and Drug Abuse Patient Records regulations: The Federal rules restrict any use of the information to criminally investigate or prosecute any alcohol or drug abuse patient.[facility] CenterIn the event this information is protected by the Federal Confidentiality of Alcohol and Drug Abuse Patient Records regulations: The Federal rules restrict any use of the information to criminally investigate or prosecute any alcohol or drug abuse patient.[facility] CenterIn the event this information is protected by the Federal Confidentiality of Alcohol and Drug Abuse Patient Records regulations: The Federal rules restrict any use of the information to criminally investigate or prosecute any alcohol or drug abuse patient.[facility] the event this information is protected by the Federal Confidentiality of Alcohol and Drug Abuse Patient Records regulations: The Federal rules restrict any use of the information to criminally investigate or prosecute any alcohol or drug abuse patient.[facility] CenterIn the event this information is protected by the Federal Confidentiality of Alcohol and Drug Abuse Patient Records regulations: The Federal rules restrict any use of the information to criminally investigate or prosecute any alcohol or drug abuse patient.[facility] CenterIn the event this information is protected by the Federal Confidentiality of Alcohol and Drug Abuse Patient Records regulations: The Federal rules restrict any use of the information to criminally investigate or prosecute any alcohol or drug abuse patient.[facility] the event this information is protected by the Federal Confidentiality of Alcohol and Drug Abuse Patient Records regulations: The Federal rules restrict any use of the information to criminally investigate or prosecute any alcohol or drug abuse patient.[facility] CenterIn the event this information is protected by the Federal Confidentiality of Alcohol and Drug Abuse Patient Records regulations: The Federal rules restrict any use of the information to criminally investigate or prosecute any alcohol or drug abuse patient.[facility] CenterIn the event this information is protected by the Federal Confidentiality of Alcohol and Drug Abuse Patient Records regulations: The Federal rules restrict any use of the information to criminally investigate or prosecute any alcohol or drug abuse patient.[facility] CenterIn the event this information is protected by the Federal Confidentiality of Alcohol and Drug Abuse Patient Records regulations: The Federal rules restrict any use of the information to criminally investigate or prosecute any alcohol or drug abuse patient.[facility] CenterIn the event this information is protected by the Federal Confidentiality of Alcohol and Drug Abuse Patient Records regulations: The Federal rules restrict any use of the information to criminally investigate or prosecute any alcohol or drug abuse patient.[facility] CenterIn the event this information is protected by the Federal Confidentiality of Alcohol and Drug Abuse Patient Records regulations: The Federal rules restrict any use of the information to criminally investigate or prosecute any alcohol or drug abuse patient.[facility] CenterIn the event this information is protected by the Federal Confidentiality of Alcohol and Drug Abuse Patient Records regulations: The Federal rules restrict any use of the information to criminally investigate or prosecute any alcohol or drug abuse patient.[facility] CenterIn the event this information is protected by the Federal Confidentiality of Alcohol and Drug Abuse Patient Records regulations: The Federal rules restrict any use of the information to criminally investigate or prosecute any alcohol or drug abuse patient.[facility] CenterIn the event this information is protected by the Federal Confidentiality of Alcohol and Drug Abuse Patient Records regulations: The Federal rules restrict any use of the information to criminally investigate or prosecute any alcohol or drug abuse patient.[facility] CenterIn the event this information is protected by the Federal Confidentiality of Alcohol and Drug Abuse Patient Records regulations: The Federal rules restrict any use of the information to criminally investigate or prosecute any alcohol or drug abuse patient.[facility] CenterIn the event this information is protected by the Federal Confidentiality of Alcohol and Drug Abuse Patient Records regulations: The Federal rules restrict any use of the information to criminally investigate or prosecute any alcohol or drug abuse patient.[facility] CenterIn the event this information is protected by the Federal Confidentiality of Alcohol and Drug Abuse Patient Records regulations: The Federal rules restrict any use of the information to criminally investigate or prosecute any alcohol or drug abuse patient.[facility] CenterIn the event this information is protected by the Federal Confidentiality of Alcohol and Drug Abuse Patient Records regulations: The Federal rules restrict any use of the information to criminally investigate or prosecute any alcohol or drug abuse patient.[facility] CenterIn the event this information is protected by the Federal Confidentiality of Alcohol and Drug Abuse Patient Records regulations: The Federal rules restrict any use of the information to criminally investigate or prosecute any alcohol or drug abuse patient.[facility] CenterIn the event this information is protected by the Federal Confidentiality of Alcohol and Drug Abuse Patient Records regulations: The Federal rules restrict any use of the information to criminally investigate or prosecute any alcohol or drug abuse patient.[facility] CenterIn the event this information is protected by the Federal Confidentiality of Alcohol and Drug Abuse Patient Records regulations: The Federal rules restrict any use of the information to criminally investigate or prosecute any alcohol or drug abuse patient.[facility] CenterIn the event this information is protected by the Federal Confidentiality of Alcohol and Drug Abuse Patient Records regulations: The Federal rules restrict any use of the information to criminally investigate or prosecute any alcohol or drug abuse patient.[facility] CenterIn the event this information is protected by the Federal Confidentiality of Alcohol and Drug Abuse Patient Records regulations: The Federal rules restrict any use of the information to criminally investigate or prosecute any alcohol or drug abuse patient.[facility] CenterIn the event this information is protected by the Federal Confidentiality of Alcohol and Drug Abuse Patient Records regulations: The Federal rules restrict any use of the information to criminally investigate or prosecute any alcohol or drug abuse patient.[facility] CenterIn the event this information is protected by the Federal Confidentiality of Alcohol and Drug Abuse Patient Records regulations: The Federal rules restrict any use of the information to criminally investigate or prosecute any alcohol or drug abuse patient.[facility] CenterIn the event this information is protected by the Federal Confidentiality of Alcohol and Drug Abuse Patient Records regulations: The Federal rules restrict any use of the information to criminally investigate or prosecute any alcohol or drug abuse patient.[facility] CenterIn the event this information is protected by the Federal Confidentiality of Alcohol and Drug Abuse Patient Records regulations: The Federal rules restrict any use of the information to criminally investigate or prosecute any alcohol or drug abuse patient.[facility] CenterIn the event this information is protected by the Federal Confidentiality of Alcohol and Drug Abuse Patient Records regulations: The Federal rules restrict any use of the information to criminally investigate or prosecute any alcohol or drug abuse patient.[facility] CenterIn the event this information is protected by the Federal Confidentiality of Alcohol and Drug Abuse Patient Records regulations: The Federal rules restrict any use of the information to criminally investigate or prosecute any alcohol or drug abuse patient.[facility] CenterIn the event this information is protected by the Federal Confidentiality of Alcohol and Drug Abuse Patient Records regulations: The Federal rules restrict any use of the information to criminally investigate or prosecute any alcohol or drug abuse patient.[facility] CenterIn the event this information is protected by the Federal Confidentiality of Alcohol and Drug Abuse Patient Records regulations: The Federal rules restrict any use of the information to criminally investigate or prosecute any alcohol or drug abuse patient.[facility] CenterIn the event this information is protected by the Federal Confidentiality of Alcohol and Drug Abuse Patient Records regulations: The Federal rules restrict any use of the information to criminally investigate or prosecute any alcohol or drug abuse patient.[facility] CenterIn the event this information is protected by the Federal Confidentiality of Alcohol and Drug Abuse Patient Records regulations: The Federal rules restrict any use of the information to criminally investigate or prosecute any alcohol or drug abuse patient.[facility] CenterIn the event this information is protected by the Federal Confidentiality of Alcohol and Drug Abuse Patient Records regulations: The Federal rules restrict any use of the information to criminally investigate or prosecute any alcohol or drug abuse patient.[facility] CenterIn the event this information is protected by the Federal Confidentiality of Alcohol and Drug Abuse Patient Records regulations: The Federal rules restrict any use of the information to criminally investigate or prosecute any alcohol or drug abuse patient.[facility] CenterIn the event this information is protected by the Federal Confidentiality of Alcohol and Drug Abuse Patient Records regulations: The Federal rules restrict any use of the information to criminally investigate or prosecute any alcohol or drug abuse patient.[facility] CenterIn the event this information is protected by the Federal Confidentiality of Alcohol and Drug Abuse Patient Records regulations: The Federal rules restrict any use of the information to criminally investigate or prosecute any alcohol or drug abuse patient.[facility] CenterIn the event this information is protected by the Federal Confidentiality of Alcohol and Drug Abuse Patient Records regulations: The Federal rules restrict any use of the information to criminally investigate or prosecute any alcohol or drug abuse patient.[facility] CenterIn the event this information is protected by the Federal Confidentiality of Alcohol and Drug Abuse Patient Records regulations: The Federal rules restrict any use of the information to criminally investigate or prosecute any alcohol or drug abuse patient.[facility] CenterIn the event this information is protected by the Federal Confidentiality of Alcohol and Drug Abuse Patient Records regulations: The Federal rules restrict any use of the information to criminally investigate or prosecute any alcohol or drug abuse patient.[facility] CenterIn the event this information is protected by the Federal Confidentiality of Alcohol and Drug Abuse Patient Records regulations: The Federal rules restrict any use of the information to criminally investigate or prosecute any alcohol or drug abuse patient.[facility] CenterIn the event this information is protected by the Federal Confidentiality of Alcohol and Drug Abuse Patient Records regulations: The Federal rules restrict any use of the information to criminally investigate or prosecute any alcohol or drug abuse patient.[facility] CenterIn the event this information is protected by the Federal Confidentiality of Alcohol and Drug Abuse Patient Records regulations: The Federal rules restrict any use of the information to criminally investigate or prosecute any alcohol or drug abuse patient.[facility] CenterIn the event this information is protected by the Federal Confidentiality of Alcohol and Drug Abuse Patient Records regulations: The Federal rules restrict any use of the information to criminally investigate or prosecute any alcohol or drug abuse patient.[facility] CenterIn the event this information is protected by the Federal Confidentiality of Alcohol and Drug Abuse Patient Records regulations: The Federal rules restrict any use of the information to criminally investigate or prosecute any alcohol or drug abuse patient.[facility] CenterIn the event this information is protected by the Federal Confidentiality of Alcohol and Drug Abuse Patient Records regulations: The Federal rules restrict any use of the information to criminally investigate or prosecute any alcohol or drug abuse patient.[facility] CenterIn the event this information is protected by the Federal Confidentiality of Alcohol and Drug Abuse Patient Records regulations: The Federal rules restrict any use of the information to criminally investigate or prosecute any alcohol or drug abuse patient.[facility] CenterIn the event this information is protected by the Federal Confidentiality of Alcohol and Drug Abuse Patient Records regulations: The Federal rules restrict any use of the information to criminally investigate or prosecute any alcohol or drug abuse patient.[facility] CenterIn the event this information is protected by the Federal Confidentiality of Alcohol and Drug Abuse Patient Records regulations: The Federal rules restrict any use of the information to criminally investigate or prosecute any alcohol or drug abuse patient.[facility] CenterIn the event this information is protected by the Federal Confidentiality of Alcohol and Drug Abuse Patient Records regulations: The Federal rules restrict any use of the information to criminally investigate or prosecute any alcohol or drug abuse patient.[facility] CenterIn the event this information is protected by the Federal Confidentiality of Alcohol and Drug Abuse Patient Records regulations: The Federal rules restrict any use of the information to criminally investigate or prosecute any alcohol or drug abuse patient.[facility] CenterIn the event this information is protected by the Federal Confidentiality of Alcohol and Drug Abuse Patient Records regulations: The Federal rules restrict any use of the information to criminally investigate or prosecute any alcohol or drug abuse patient.[facility] Care Teams (unrecognized sec tion and content) Screwhead Stoner And Polisher Relationship Specialty Start Date End Date Husam Deras, DO [address] [place] [address] PCP - General Family Practice 10/16/14 Mena Machuca, DO [address] [address] Consulting Peripheral Vascular 02/18/21 [facility], Diane L [address] [facility] [place] [address] Surgeon General Surgery 11/30/21 Screwhead Stoner And Polisher Relationship Specialty Start Date End Date Husam Deras, DO [address] [place] [address] PCP - General Family Practice 10/16/14 Mena Machuca, DO [address] [address] Consulting Peripheral Vascular 02/18/21 [facility] Diane L [address] [facility] [address] [place] [address] Surgeon General Surgery 11/30/21 Screwhead Stoner And Polisher Relationship Specialty Start Date End Date Husam Deras, DO [address] [place] [address] PCP - General Family Practice 10/16/14 Mena Machuca, DO [address] [address] Consulting Peripheral Vascular 02/18/21 [facility], Diane L [address] [facility] [address] [place] [address] Surgeon General Surgery 11/30/21 Screwhead Stoner And Polisher Relationship Specialty Start Date End Date Husam Deras, DO [address] [place] [address] PCP - General Family Practice 10/16/14 Mena Machuca, DO [address] [address] Consulting Peripheral Vascular 02/18/21 Rob[place]am, Diane L [address] [facility] [address] [place] [address] Surgeon General Surgery 11/30/21 Screwhead Stoner And Polisher Relationship Specialty Start Date End Date Husam Deras, DO [address] [place] [address] PCP - General Family Practice 10/16/14 Mena Machuca, DO [address] [address] Consulting Peripheral Vascular 02/18/21 Rob[place]am, Diane L [address] [facility] [address] [place] [address] Surgeon General Surgery 11/30/21 Screwhead Stoner And Polisher Relationship Specialty Start Date End Date Husam Deras, DO [address] [place] [address] PCP - General Family Practice 10/16/14 Mena Machuca, DO [address] [address] Consulting Peripheral Vascular 02/18/21 [place], Diane L [address] [facility] [address] [place] [address] Surgeon General Surgery 11/30/21 Screwhead Stoner And Polisher Relationship Specialty Start Date End Date Husam Deras, DO [address] [place] [address] PCP - General Family Practice 10/16/14 Mena Machuca, DO [address] [address] Consulting Peripheral Vascular 02/18/21 [place], Diane L [address] [facility] [address] [place] [address] Surgeon General Surgery 11/30/21 Yasmin Marquez, KEYA [address] [place] [address] Door Liner Helper 02/01/22 Screwhead Stoner And Polisher Relationship Specialty Start Date End Date Husam Deras, DO [address] [place] [address] PCP - General Family Practice 10/16/14 Mena Machuca, DO [address] [address] Consulting Peripheral Vascular 02/18/21 Reshma, Diane L [address] [facility] [address] [place] [address] Surgeon General Surgery 11/30/21 Yasmin Marquez, KEYA [address] [place], [place] [id number] Door Liner Helper 02/01/22 Screwhead Stoner And Polisher Relationship Specialty Start Date End Date Husam Deras, DO [address] [place] [address] PCP - General Family Practice 10/16/14 Mena Machuca, DO [address] [address] Consulting Peripheral Vascular 02/18/21 [place], Diane L [address] [facility] [address] [place] [address] Surgeon General Surgery 11/30/21 Yasmin Marquez, KEYA [address] [place], [place] [id number] Door Liner Helper 02/01/22 Screwhead Stoner And Polisher Relationship Specialty Start Date End Date Husam Deras, DO [address] [place] [address] PCP - General Family Practice 10/16/14 Mena Machuca, DO [address] [address] Consulting Peripheral Vascular 02/18/21 Diane Justice L [address] [facility] [address] [address] Surgeon General Surgery 11/30/21 Yasmin Marquez RN [address] [place], [place] [id number] Door Liner Helper 02/01/22 Screwhead Stoner And Polisher Relationship Specialty Start Date End Date Husam Deras, DO [address] [place] [address] PCP - General Family Practice 10/16/14 Mena Machuca, DO [address] [address] Consulting Peripheral Vascular 02/18/21 Diane Justice L [address] [facility] [address] [address] Surgeon General Surgery 11/30/21 Yasmin Marquez, KEYA [address] [place], [place] [id number] Door Liner Helper 02/01/22 Screwhead Stoner And Polisher Relationship Specialty Start Date End Date Husam Deras, DO [address] [place] [address] PCP - General Family Practice 10/16/14 Mena Machuca, DO [address] [address] Consulting Peripheral Vascular 02/18/21 Nasim Justiceera L [address] [facility] [address] [place] [address] Surgeon General Surgery 11/30/21 Yasmin Marquez RN [address] [place], [place] [id number] Door Liner Helper 02/01/22 Screwhead Stoner And Polisher Relationship Specialty Start Date End Date Husam Deras, DO [address] [place] [address] PCP - General Family Medicine 10/16/14 Mena Machuca, DO [address] [address] Consulting Peripheral Vascular 02/18/21 Diane Justice L [address] [facility] [address] [place] [address] Surgeon General Surgery 11/30/21 Yasmin Marquez RN [address] [place], [place] [id number] Door Liner Helper 02/01/22 Screwhead Stoner And Polisher Relationship Specialty Start Date End Date Husam Deras, DO [address] [place] [address] PCP - General Family Medicine 10/16/14 Mena Machuca, DO [address] [address] Consulting Peripheral Vascular 02/18/21 Nasim Justiceera L [address] [facility] [address] [place] [address] Surgeon General Surgery 11/30/21 Yasmin Marquez RN [address] [place] [address] Door Liner Helper 02/01/22 Screwhead Stoner And Polisher Relationship Specialty Start Date End Date Husam Deras, DO [address] [place] [address] PCP - General Family Medicine 10/16/14 Mena Machuca, DO [address] [address] Consulting Peripheral Vascular 02/18/21 Reshma, Diane L [address] [facility] [address] [place] [address] Surgeon General Surgery 11/30/21 Yasmin Marquez, KEYA [address] [place], [place] [id number] Door Liner Helper 02/01/22 Screwhead Stoner And Polisher Relationship Specialty Start Date End Date Husam Deras, DO [address] [place] [address] PCP - General Family Medicine 10/16/14 Mena Machuca, DO [address] [address] Consulting Peripheral Vascular 02/18/21 Reshma, Diane L [address] [facility] [address] [place] [address] Surgeon General Surgery 11/30/21 Yasmin Marquez RN [address] [place], [place] [id number] Door Liner Helper 02/01/22 Screwhead Stoner And Polisher Relationship Specialty Start Date End Date Husam Deras, DO [address] [place] [address] PCP - General Family Medicine 10/16/14 Mena Machuca, DO [address] [address] Consulting Peripheral Vascular 02/18/21 [place], Diane L [address] [facility] [address] [place] [address] Surgeon General Surgery 11/30/21 Yasmin Marquez, RN [address] [place], [place] [id number] Door Liner Helper 02/01/22 Screwhead Stoner And Polisher Relationship Specialty Start Date End Date Husam Deras, DO [address] [place] [address] PCP - General Family Medicine 10/16/14 Mena Machuca, DO [address] [address] Consulting Peripheral Vascular 02/18/21 Diane Justice L [address] [facility] [address] [place] [address] Surgeon General Surgery 11/30/21 Yasmin Marquez RN [address] [place], [place] [id number] Door Liner Helper 02/01/22 Screwhead Stoner And Polisher Relationship Specialty Start Date End Date Husam Deras, DO [address] [place] [address] PCP - General Family Medicine 10/16/14 Mena Machuca, DO [address] [address] Consulting Peripheral Vascular 02/18/21 Diane Justice L [address] [facility] [address] [place] [address] Surgeon General Surgery 11/30/21 Yasmin Marquez RN [address] [place], [place] [id number] Door Liner Helper 02/01/22 Screwhead Stoner And Polisher Relationship Specialty Start Date End Date Husam Deras, DO [address] [place] [address] PCP - General Family Medicine 10/16/14 Mena Machuca, DO [address] [address] Consulting Peripheral Vascular 02/18/21 [place], Diane L [address] [facility] [address] [place] [address] Surgeon General Surgery 11/30/21 Humberto Wang, RN [address] [place] [address] Door Liner Helper 02/01/22 Screwhead Stoner And Polisher Relationship Specialty Start Date End Date Husam Deras, DO [address] [place] [address] PCP - General Family Medicine 10/16/14 Mena Machuca, DO [address] [address] Consulting Peripheral Vascular 02/18/21 Rob[place], Diane L [address] [facility] [address] [place] [address] Surgeon General Surgery 11/30/21 Humberto Wnag, RN [address] [place] [address] Door Liner Helper 02/01/22 Screwhead Stoner And Polisher Relationship Specialty Start Date End Date Husam Deras, DO [address] [place] [address] PCP - General Family Medicine 10/16/14 Mena Machuca, DO [address] [address] Consulting Peripheral Vascular 02/18/21 Rob[place], Diane L [address] [facility] [address] [place] [address] Surgeon General Surgery 11/30/21 Humberto Wang, RN [address] [place] [address] Door Liner Helper 02/01/22 Screwhead Stoner And Polisher Relationship Specialty Start Date End Date Husam Deras, DO [address] [place] [address] PCP - General Family Medicine 10/16/14 Mena Machuca, DO [address] [address] Consulting Peripheral Vascular 02/18/21 Rob[place]am, Diane L [address] [facility] [address] [place] [address] Surgeon General Surgery 11/30/21 Humberto Wang, RN [address] [place] [address] Door Liner Helper 02/01/22 Screwhead Stoner And Polisher Relationship Specialty Start Date End Date Husam Deras, DO [address] [place] [address] PCP - General Family Medicine 10/16/14 Mena Machuca, DO [address] [address] Consulting Peripheral Vascular 02/18/21 Rob[place]am, Diane L [address] [facility] [address] [place] [address] Surgeon General Surgery 11/30/21 Humberto Wang RN [address] [place] [address] Door Liner Helper 02/01/22 Screwhead Stoner And Polisher Relationship Specialty Start Date End Date Husam Deras, DO [address] [place] [address] PCP - General Family Medicine 10/16/14 Mena Machuca, DO [address] [address] Consulting Peripheral Vascular 02/18/21 Robotham, Diane L [address] [facility] [address] [place] [address] Surgeon General Surgery 11/30/21 Humberto Wang, RN [address] [place] [address] Door Liner Helper 02/01/22 Screwhead Stoner And Polisher Relationship Specialty Start Date End Date Husam Deras, DO [address] [place] [address] PCP - General Family Medicine 10/16/14 Mena Machuca, DO [address] [address] Consulting Peripheral Vascular 02/18/21 Robotham, Diane L [address] [facility] [address] [place] [address] Surgeon General Surgery 11/30/21 Humberto Wang, RN [address] [place] [address] Door Liner Helper 02/01/22 Screwhead Stoner And Polisher Relationship Specialty Start Date End Date Husam Deras, DO [address] [place] [address] PCP - General Family Medicine 10/16/14 Mena Machuca, DO [address] [address] Consulting Peripheral Vascular 02/18/21 Robotham, Diane L [address] [facility] [address] [place] [address] Surgeon General Surgery 11/30/21 Humberto Wang, RN [address] [place] [address] Door Liner Helper 02/01/22 Screwhead Stoner And Polisher Relationship Specialty Start Date End Date Husam Deras, DO [address] [place] [address] PCP - General Family Medicine 10/16/14 Mena Machuca, DO [address] [address] Consulting Peripheral Vascular 02/18/21 Robotham, Diane L [address] [facility] [address] [place] [address] Surgeon General Surgery 11/30/21 Humberto Wang, KEYA [address] [place] [address] Door Liner Helper 02/01/22 Screwhead Stoner And Polisher Relationship Specialty Start Date End Date Husam Deras, DO [address] [place] [address] PCP - General Family Medicine 10/16/14 Mena Machuca, DO [address] [address] Consulting Peripheral Vascular 02/18/21 Robotham, Diane L [address] [facility] [address] [place] [address] Surgeon General Surgery 11/30/21 Denisse Eller, KEYA [address] [place] [address] Door Liner Helper 02/16/23 Screwhead Stoner And Polisher Relationship Specialty Start Date End Date Husam Deras, DO [address] [place] [address] PCP - General Family Medicine 10/16/14 Mena Machuca, DO [address] [address] Consulting Peripheral Vascular 02/18/21 [facility] Diane L [address] [facility] [address] [address] Surgeon General Surgery 11/30/21 Denisse Eller, KEYA [address] [place] [address] Door Liner Helper 02/16/23 Screwhead Stoner And Polisher Relationship Specialty Start Date End Date Husam Deras, DO [address] [place] [address] PCP - General Family Medicine 10/16/14 Mena Machuca, DO [address] [address] Consulting Peripheral Vascular 02/18/21 [place], Diane L [address] [facility] [address] [address] Surgeon General Surgery 11/30/21 Humberto Wang RN [address] [place] [address] Door Liner Helper 02/01/22 02/15/23 [place] [address] [place] [address] Door Liner Helper 02/16/23 Screwhead Stoner And Polisher Relationship Specialty Start Date End Date Husam Deras, DO [address] [place] [address] PCP - General Family Medicine 10/16/14 Mena Machuca, DO [address] [address] Consulting Peripheral Vascular 02/18/21 [place], Diane L [address] [facility] [address] [address] Surgeon General Surgery 11/30/21 [place] [address] [place] [address] Door Liner Helper 02/16/23 Screwhead Stoner And Polisher Relationship Specialty Start Date End Date Husam Deras, DO [address] [place] [address] PCP - General Family Medicine 10/16/14 Mena Machuca, DO [address] [address] Consulting Peripheral Vascular 02/18/21 Robotham, Diane L [address] [facility] [address] [place] [address] Surgeon General Surgery 11/30/21 [place] [address] [place] [address] Door Liner Helper 02/16/23 Screwhead Stoner And Polisher Relationship Specialty Start Date End Date Husam Deras DO [address] [place] [address] PCP - General Family Medicine 10/16/14 Mena Machuca DO [address] [address] Consulting Peripheral Vascular 02/18/21 Diane Justice [address] [facility] [address] [place] [address] Surgeon General Surgery 11/30/21 Denisse Eller, KEYA [address] [place] [address] Door Liner Helper 02/16/23 Screwhead Stoner And Polisher Relationship Specialty Start Date End Date Husam Deras DO [address] [place] [address] PCP - General Family Medicine 10/16/14 Mena Machuca, [address] [address] Consulting Peripheral Vascular 02/18/21 [facility] [address] [facility] [address] [place] [address] Surgeon General Surgery 11/30/21 [place] [address] [place] [address] Door Liner Helper 02/16/23 Screwhead Stoner And Polisher Relationship Specialty Start Date End Date Husam Deras DO [address] [place] [address] PCP - General Family Medicine 10/16/14 Mena Machuca DO [address] [address] Consulting Peripheral Vascular 02/18/21 Diane Justice [address] [facility] [address] [place] [address] Surgeon General Surgery 11/30/21 Denisse Eller, KEYA [address] [place] [address] Door Liner Helper 02/16/23 Screwhead Stoner And Polisher Relationship Specialty Start Date End Date Husam Deras DO [address] [place] [address] PCP - General Family Medicine 10/16/14 Mena Machuca, [address] [address] Consulting Peripheral Vascular 02/18/21 Diane Justice [address] [facility] [address] [address] Surgeon General Surgery 11/30/21 [place] [address] [place] [address] Door Liner Helper 02/16/23 Screwhead Stoner And Polisher Relationship Specialty Start Date End Date Husam Deras DO [address] [place] [address] PCP - General Family Medicine 10/16/14 Mena Machuca DO [address] [address] Consulting Peripheral Vascular 02/18/21 Diane Justice [address] [facility] [address] [place] [address] Surgeon General Surgery 11/30/21 Denisse Eller, KEYA [address] [place] [address] Door Liner Helper 02/16/23 Screwhead Stoner And Polisher Relationship Specialty Start Date End Date Husam Deras, DO [address] [place] [address] PCP - General Family Medicine 10/16/14 Mena Machuca, [address] [address] Consulting Peripheral Vascular 02/18/21 Diane Justice [address] [facility] [address] [place] [address] Surgeon General Surgery 11/30/21 Denisse Eller, KEYA [address] [place] [address] Door Liner Helper 02/16/23 Screwhead Stoner And Polisher Relationship Specialty Start Date End Date Husam Deras, [address] [place] [address] PCP - General Family Medicine 10/16/14 Mena Machuca, DO [address] [address] Consulting Peripheral Vascular 02/18/21 Diane Justice [address] [facility] [address] [place] [address] Surgeon General Surgery 11/30/21 Denisse Eller, KEYA [address] [place] [address] Door Liner Helper 02/16/23 Screwhead Stoner And Polisher Relationship Specialty Start Date End Date Husam Deras DO [address] [place] [address] PCP - General Family Medicine 10/16/14 Mena Machuca, DO [address] [address] Consulting Peripheral Vascular 02/18/21 Diane Justice [address] [facility] [address] [place] [address] Surgeon General Surgery 11/30/21 [place] [address] [place] [address] Door Liner Helper 02/16/23 Screwhead Stoner And Polisher Relationship Specialty Start Date End Date Husam Deras DO [address] [place] [address] PCP - General Family Medicine 10/16/14 Mena Machuca, DO [address] [address] Consulting Peripheral Vascular 02/18/21 Diane Justice [address] [facility] [address] [place] [address] Surgeon General Surgery 11/30/21 Denisse Eller, KEYA [address] [place] [address] Door Liner Helper 02/16/23 Screwhead Stoner And Polisher Relationship Specialty Start Date End Date Husam Deras DO [address] [place] [address] PCP - General Family Medicine 10/16/14 Mena Machuca DO [address] [address] Consulting Peripheral Vascular 02/18/21 Diane Justice [address] [facility] [address] [place] [address] Surgeon General Surgery 11/30/21 Denisse Eller, KEYA [address] [place] [address] Door Liner Helper 02/16/23 Screwhead Stoner And Polisher Relationship Specialty Start Date End Date Husam Deras DO [address] [place] [address] PCP - General Family Medicine 10/16/14 Mena Machuca, [address] [address] Consulting Peripheral Vascular 02/18/21 Diane Justice [address] [facility] [address] [place] [address] Surgeon General Surgery 11/30/21 [place] [address] [place] [address] Door Liner Helper 02/16/23 Screwhead Stoner And Polisher Relationship Specialty Start Date End Date Husam Deras DO [address] [place] [address] PCP - General Family Medicine 10/16/14 Mena Machuca, DO [address] [address] Consulting Peripheral Vascular 02/18/21 Diane Justice MD [address] [facility] [address] [place] [address] Surgeon General Surgery 11/30/21 [place] [address] [place] [address] Door Liner Helper 02/16/23 Screwhead Stoner And Polisher Relationship Specialty Start Date End Date Husam Deras, [address] [place] [address] PCP - General Family Medicine 10/16/14 Mena Machuca DO [address] [address] Consulting Peripheral Vascular 02/18/21 Diane Justice MD [address] [facility] [address] [place] [address] Surgeon General Surgery 11/30/21 [place] [address] [place] [address] Door Liner Helper 02/16/23 Screwhead Stoner And Polisher Relationship Specialty Start Date End Date Husam Deras, [address] [place] [address] PCP - General Family Medicine 10/16/14 Mena Machuca, DO [address] [address] Consulting Peripheral Vascular 02/18/21 Diane Justice MD [address] [facility] [address] [place] [address] Surgeon General Surgery 11/30/21 [place] [address] [place] [address] Door Liner Helper 02/16/23 Screwhead Stoner And Polisher Relationship Specialty Start Date End Date Husam Deras DO [address] [place] [address] PCP - General Family Medicine 10/16/14 Mena Machuca, DO [facility] [address] [address] Consulting Peripheral Vascular 02/18/21 Diane Justice MD [address] [address] Surgeon General Surgery 11/30/21 [place] [address] [place] [address] Door Liner Helper 02/16/23 Screwhead Stoner And Polisher Relationship Specialty Start Date End Date Husam Deras DO [address] [place] [address] PCP - General Family Medicine 10/16/14 Mena Machuca, DO [address] [place] [address] Consulting Peripheral Vascular 02/18/21 Diane Justice MD [address] [place] [address] Surgeon General Surgery 11/30/21 [place] [address] [place] [address] Door Liner Helper 02/16/23 Screwhead Stoner And Polisher Relationship Specialty Start Date End Date Husam Deras DO [address] [place] [address] PCP - General Family Medicine 10/16/14 Mena Machuca DO [address] [address] Consulting Peripheral Vascular 02/18/21 Diane Justice MD [address] [place], [place] [address] Surgeon General Surgery 11/30/21 [place] [address] [place] [address] Door Liner Helper 02/16/23 Screwhead Stoner And Polisher Relationship Specialty Start Date End Date Husam Deras DO [address] [place] [address] PCP - General Family Medicine 10/16/14 Mena Machuca DO [address] [address] Consulting Peripheral Vascular 02/18/21 Diane Justice MD [address] [place] [address] Surgeon General Surgery 11/30/21 Denisse Eller, KEYA [address] [place] [address] Door Liner Helper 02/16/23 Reason for Visit (unrecogniz ed section and content) Reason Comments Patient Update Reason Comments Blood Pressure Reason Comments Blood Pressure Check Reason Comments Follow Up 3 months Reason Comments Spirometry Specialty Diagnoses / Procedures Referred By Contlamar t Referred To Contact [facility] Diagnoses SOB (shortness of breath) Procedures SPIROMETRY - BASELINE AND POST DILATOR BRNCDILAT RSPSE SPMTRY PRE&POST-BRNCDILAT ADMN Husam Deras DO [address] [place] [address] Res[facility] [place] [address] [place] [address] Referral ID Status Reason Start Date Expiration Date V isits Requested Visits Authorized [id number] Closed Auto-Generate d Referral 02/01/2022 03/03/2023 1 1 Reason Comments Cardiology Follow Up No concerns Reason Onset Date Comments Community monitoring Outreach 03/12/2022 Fo llow up Reason Onset Date Comments Community Monitoring Outreach 04/09/2022 fo llow up Reason Onset Date Comments Community Monitoring Outreach 04/12/2022 Fo llow up Reason Comments Follow Up Reason Onset Date Comments Community Monitoring Outreach 04/19/2022 Fo llow up Reason Onset Date Comments Community Monitoring Outreach 04/20/2022 Fo llow up Reason Onset Date Comments Community Monitoring Outreach 04/26/2022 Fo llow up Reason Onset Date Comments Community Monitoring Outreach 05/04/2022 Fo llow up Reason Onset Date Comments Community Monitoring Outreach 05/11/2022 Fo llow up Reason Comments Appointment Reason Onset Date Comments Community Monitoring Outreach 06/08/2022 Fo llow up Reason Onset Date Comments Community Monitoring Outreach 06/09/2022 Fo llow up Reason Comments Established Patient Injections Specialty Diagnoses / Procedures Referred By Contac t Referred To Contact Orthopedics / ORTHOPAEDIC SURGERY Diagnoses Bilateral primary osteoarthritis of knee Euflexxa Injection #1 Procedures EUFLEXXA INJ PER DOSE GEORGES INJECT 3 Husam Deras L, DO [address] [place] [address] Seble Zepeda PA-C [address] [place] [address] Referral ID Status Reason Start Date Expiration Date V isits Requested Visits Authorized [id number] Authorized 05/21/2022 07/20/2022 6 6 Reason Onset Date Comments Community Monitoring Outreach 06/16/2022 Fo llow up Reason Onset Date Comments Community Monitoring Outreach 06/17/2022 Fo llow up Reason Comments Results Reason Onset Date Comments Community Monitoring Outreach 06/24/2022 Fo llow up Reason Onset Date Comments Community Monitoring Outreach 06/25/2022 Fo llow up Reason Comments Established Patient Injections Established Patient Euflexxa Injection # 3 Injections Euflexxa Injection # 3 Reason Onset Date Comments Community [facility] Outreach 07/22/2022 Reason Onset Date Comments CDM 07/29/2022 Telephonic outre ach Reason Onset Date Comments [facility] 09/10/2022 Telephonic outre ach Reason Onset Date Comments Refill Request 09/10/2022 Reason Comments Medication Question [facility] Reason Comments Rx Refills Reason Onset Date Comments [facility] 10/08/2022 Telephonic outre ach Reason Comments Cardiology Follow Up No issues Reason Onset Date Comments Medication Question 10/26/2022 Reason Comments Medication Question See 10/25/22 refill e ncounter in regards to Gabapentin and Lyrica Reason Onset Date Comments [facility] 11/05/2022 Telephonic outre ach Reason Comments Refill Request Reason Comments [facility] Verbal approval to d o an extraction. Reason Onset Date Comments [facility] 12/07/2022 Telephonic outre ach Reason Comments Appointment Needs testing Reason Comments Appointment Rescheduled Reason Comments Leg Pain Reason Onset Date Comments Population Health Navigation Outreach 01/03/2023 [facility] Reason Onset Date Comments Community Monitoring Outreach 01/06/2023 CD M follow up Reason Comments F/U 3 Month Reason Comments Question Reason Onset Date Comments [facility] 02/08/2023 Telephonic outre ach Reason Onset Date Comments [facility] 02/09/2023 Telephonic outre ach Reason Comments Opened In Error Reason Comments Follow Up Reason Onset Date Comments Escalation of Care 03/18/2023 Reason Comments Edema Reason Comments Edema Swelling- both legs Reason Comments Established Patient Xrays taken today Knee Pain Xrays taken today Reason Comments CARD Follow Up 6 Month Rm 15No new cardi ac concerns. Reason Comments 6 Month Exam Reason Onset Date Comments [facility] 05/03/2023 Check in call Reason Onset Date Comments [facility] 05/31/2023 Check in call Reason Onset Date Comments [facility] 06/28/2023 Check in call Reason Comments Sinus Problem chest pressure, righ t knee pain x today Reason Comments Shortness of Breath X4 days. Seen in ED yesterday at [facility] Specialty Diagnoses / Procedures Referred By Contlamar t Referred To Contact [facility] Diagnoses SOB (shortness of breath) Procedures SPIROMETRY WITH DILATOR IF OBSTRUCTED BRNCDILAT RSPSE SPMTRY PRE&POST-BRNCDILAT ADMAurelia Willett MD [address] [place] [address] Res[facility] [place] [address] [place] [address] Referral ID Status Reason Start Date Expiration Date V isits Requested Visits Authorized [id number] Closed Auto-Generate d Referral 07/21/2023 09/11/2023 1 1 Reason Onset Date Comments New Patient Dyspnea Immunizations 07/21/2023 Flu vaccination Reason Onset Date Comments cdm 08/09/2023 Check in call Reason Onset Date Comments cdm 08/25/2023 Check in call FOR RECORDS PERTAINING TO PATIENTS WHO ARE OR HAVE BEEN ENROLLED IN A CHEMICAL DEPENDENCY/SUBSTANCEABUSE PROGRAM, SOME INFORMATION MAY BE OMITTED. This clinical summary was aggregated from multiple sources. Caution should be exercised in using it in the provision of clinical care. This summary normalizes information from multiple sources, and as a consequence, information in this document may materially change the coding, format and clinical context of patient data. In addition, data may be omitted in some cases. CLINICAL DECISIONS SHOULD BE BASED ON THE PRIMARY CLINICAL RECORDS. [facility] [employer] [facility]. provides no warranty or guarantee of the accuracy or completeness of information in this document.
[2023-09-13 20:50] LABS: Absolute Lymphocyte Count 0.58 X10^3/uL (0.83-4.51); Absolute Neutrophil Count 10.7 X10^3/uL (2.0-7.7); Basophil# 0.02 X10^3/uL; Basophil% 0.2 % (0-1); Hematocrit 48.2 % (40-54); Hemoglobin 15.4 g/dL (13.0-16.5); Lymphocyte # 0.58 X10^3/ul (0.83-4.51); Lymphocyte % 4.7 % (19-41); Mean Corpuscular Hgb 29.7 pg (27.0-32.0); Mean Corpuscular Volume 92.9 fL (80-94); Mean Platelet Vol. 11.1 fl (6.2-12.0); Monocyte# 1.04 X10^3/uL; Monocyte% 8.4 % (0-10); NRBC Flagged by Analyzer 0 % (0-5); Neutrophil # 10.68 X10^3/uL (2.7-7.7); Neutrophil % 86.1 % (47-70); POSITIVE DIFFERENTIAL YES; Platelet Count 147 K/mm3 (150-450); RBC Distribution Width CV 14.3 % (11.6-14.6); RBC Distribution Width SD 49.1 fl (35.1-43.9); Red Blood Count 5.19 M/mm3 (4.6-6.2); White Blood Count 12.4 K/mm3 (4.4-11.0)
[2023-09-13 20:58] LABS: Differential Indicated SCAN CRITERIA MET
[2023-09-13 21:14] LABS: Anion Gap 7 (5-15); BUN 81 mg/dL (7-18); BUN/Creat Ratio 14.1 RATIO (10-20); Chloride 107 mmol/L (98-107); Creatinine, Serum 5.76 mg/dL (0.70-1.30); EST Glomerular Filtration Rate 10 mL/min (>60); Est Glom Filt Rate - Afr Amer 12 mL/min (>60); Estimated Creatinine Clearance 10.39 ml/min; Glucose 134 mg/dL (74-106); Potassium 4.4 mmol/L (3.5-5.1); Sodium Level 139 mmol/L (136-145); Troponin-I HS 1305 pg/mL (3.0-78.0)
[2023-09-13 21:15] VITALS: BP 86/70; PULSE 64; RESP 18; O2SAT 95
[2023-09-13 21:23] LABS: Differential Comment SCANNED
[2023-09-13 21:24] LABS: BNP,B-Type NATRIURETIC PEPTIDE 66.3 pg/mL (0-100)
[2023-09-13] MEDS: 0.9% Normal Saline (1000mL) 1,000 ML 999 ML IV (21:24)
[2023-09-13 22:22] LABS: Mucous, Urine 0 SEEN /hpf (<or=2+); Squamous Epithelial Cells - UA 0 SEEN /hpf (0-5)
[2023-09-13] MEDS: 0.9% Normal Saline (1000mL) 1,000 ML 150 ML IV (22:25)
[2023-09-13 22:26] LABS: Color, Urine Yellow (Yellow); Glucose, Dipstick Normal (Normal); Ketone-Dipstick 5 mg/dl (Negative); Leukocyte Esterase-Dipstick 25 /ul (Negative); Nitrite-Dipstick Positive (Negative); Occult Blood-Urine 150 /ul (Negative); Protein-Dipstick 100 mg/dl (Negative); Urine Bilirubin Dipstick 3 mg/dL (Negative); Urine Clarity Sl. Cloudy (Clear); Urine Urobilinogen 1 mg/dl (Normal)
--- NOTE | 2023-09-13 22:28 | EX.ED.DYSGE1 ---
HPI History of Present Illness Chief Complaint: Syncope Narrative Narrative: 82-year-old male from home reportedly having syncopal episodes while he was there. He is unsure if he hit his head or loss conscious but recently had a subdural hematoma and NSTEMI was transferred to [facility]. Patient states he feels thirsty. He is requesting a drink. I asked him the last time he urinated was that he cannot tell me. He also cannot tell me last time he had a drink. He does not recall much history from today. Patient lives at home alone and has a neighbor who keeps an eye on it. [facility] Medical History Arthritis Back pain BPH (benign prostatic hyperplasia) Cardiology follow-up encounter Coronary artery disease Easy bruising Former smoker History of irregular heartbeat History of stress test Leg cramps Thyroid disease Wears glasses Wears hearing aid Wears partial dentures Home Medications aspirin 81 mg tablet,delayed release 81 mg PO DAILY@0800 10/10/17 [History Last Taken 10/11/17] atenolol 25 mg tablet 25 mg PO DAILY 10/10/17 [History Last Taken 12/28/21] meclizine 25 mg tablet 25 mg PO PRN PRN Dizziness 10/10/17 [History Last Taken 11/03/21] hydrochlorothiazide 12.5 mg tablet 12.5 mg PO DAILY 10/07/18 [History Last Taken Unknown] lisinopril 30 mg tablet 20 mg PO BID 10/07/18 [History Last Taken 12/28/21] cetirizine 10 mg tablet 10 mg PO DAILY 11/03/21 [History Last Taken Unknown] gabapentin 400 mg capsule 400 mg PO DAILY 11/03/21 [History Last Taken Unknown] levothyroxine 75 mcg tablet 75 mcg PO DAILY 12/24/21 [History Last Taken 12/28/21] meloxicam 7.5 mg tablet (Mobic) 7.5 mg PO DAILY 12/24/21 [History Last Taken Unknown] omega-3 fatty acids 1,000 mg PO DAILY 12/24/21 [History Last Taken Unknown] psyllium husk 0.4 gram capsule (Daily Fiber) 0.4 g PO DAILY 12/24/21 [History Last Taken Unknown] tamsulosin 0.4 mg capsule 0.4 mg PO QHS 12/24/21 [History Last Taken Unknown] tramadol 50 mg tablet 50 mg PO Q6H PRN pain 3 days #10 tabs 12/28/21 [Rx Last Taken Unknown] hydrocodone-acetaminophen 5-325mg 5mg-325mg 1 tab PO Q6H PRN PRN Pain 3 days #10 TABLETS 11/20/22 [Rx Last Taken Unknown] Allergy/AdvReac Type Severity Reaction Status Date / Time atorvastatin [From Lipitor] AdvReac Other Verified 09/13/23 20:05 Surgical History History of cardiac catheterization History of cholecystectomy History of coronary artery bypass graft Hx of shoulder surgery Social History household members: none Smoking Status: Former smoker substance use type: does not use ROS ROS ED Cardiovascular Cardiovascular: Reports racing heartbeat Genitourinary Genitourinary ED: Denies dysuria, hematuria or urinary frequency Integumentary Reports rash Psychiatric Psychiatric: Reports suicidal ideation and suicidal thoughts EXAM Physical Exam Const Vital Signs: 09/13/23 20:05 09/13/23 20:15 09/13/23 20:16 Temperature 96.9 F L Temperature Source Temporal Pulse Rate 73 Respiratory Rate 17 Respiratory Effort Normal Non-Labored Respiratory Pattern Normal Blood Pressure 107/79 Blood Pressure Mean 88 Pulse Ox 92 86 Oxygen Delivery Method Room Air Room Air Oxygen Flow Rate (L/min) 09/13/23 20:33 09/13/23 21:15 09/13/23 22:38 Temperature Temperature Source Pulse Rate 64 66 Respiratory Rate 18 20 H Respiratory Effort Respiratory Pattern Blood Pressure 86/70 L 95/73 Blood Pressure Mean 75 80 Pulse Ox 95 97 Oxygen Delivery Method Nasal Cannula Room Air Nasal Cannula Oxygen Flow Rate (L/min) 2 2 09/13/23 22:46 Temperature 97.3 F L Temperature Source Pulse Rate 68 Respiratory Rate 20 H Respiratory Effort Respiratory Pattern Blood Pressure 102/58 L Blood Pressure Mean 72 Pulse Ox 93 Oxygen Delivery Method Oxygen Flow Rate (L/min) Positive well nourished General Appearance ED: Negative for pallor HEENT Reports dry mucous membranes Mouth ED: Yes dry mucous membranes Mouth: dry mucous membranes Eyes PERRL and EOMs intact bilaterally Neck no lymphadenopathy Chest Wall inspection of chest normal Resp normal respiratory effort Auscultation: Negative for rales, rhonchi or wheezes Cardio regular rate and regular rhythm GI normal to inspection, nondistended, normoactive bowel sounds Neuro CN's II-XII intact bilaterally and no sensory deficits noted Sensorium / Orientation: alert Psych mental status grossly normal Skin no wounds General Skin Exam: Negative for jaundice or pallor MDM MDM MDM Narrative Medical decision making narrative: Patient presenting with confusion with syncopal episodes today. Patient states he has not been drinking much and cannot recall the last time he urinated. Differential includes syncope, near-syncope, dehydration, anemia, electrolyte normalities, ACS, CHF, pneumonia, dehydration, subdural hematoma, C-spine fracture, skull fracture. CBC was obtained to assess white blood cell count, hemoglobin, platelets. BMP to assess renal function, electrolytes, glucose. High-sensitivity troponin EKG was obtained to assess ischemia dysrhythmia. Urinalysis to assess for UTI. BMP to assess for CHF. CBC shows mild white blood cell count of 12.4. Hemoglobin stable 15.4. Platelets are normal low at 147. Creatinine is significantly elevated today at 5.76. On discharge from [facility] it was around 1. Urinalysis positive for infection. Urine culture sent. Patient given a gram Rocephin. After IV fluids bolus was given he was given rate at 150. Heart rate is improved. Blood pressure is 102/58. Chest x-ray my interpretation shows a small effusion of the left costophrenic angle. Discussed with hospitalist for admission and he recommended that I speak with cardiology. After speaking with Dr. Quintana it was recommended that he hold heparin and give IV fluids trend troponins. CT brain and cervical spine were negative. It does look as though they ruled out a subdural hematoma on his last admission. They did not do any kind of cardiac workup therefore the patient will stay for this. Impression: 1. UTI 2. Dehydration 3. Acute kidney injury 4. Altered mental status 5. Syncope Lab Data Labs: Laboratory Results - last 24 hr 09/13/23 09/13/23 20:35 22:15 WBC 12.4 H RBC 5.19 Hgb 15.4 Hct 48.2 MCV 92.9 MCH 29.7 MCHC 32.0 RDW Std Deviation 49.1 H RDW Coeff of [place] 14.3 Plt Count 147 L MPV 11.1 Immature Gran % (Auto) 0.600 Neut % (Auto) 86.1 H Lymph % (Auto) 4.7 L Stone % (Auto) 8.4 Eos % (Auto) 0.0 Baso % (Auto) 0.2 Absolute Neuts (auto) 10.7 H Absolute Lymphs (auto) 0.58 L Nucleated RBC % 0 Differential Comment SCANNED Sodium 139 Potassium 4.4 Chloride 107 Carbon Dioxide 25.0 Anion Gap 7 BUN 81 H Creatinine 5.76 H Estim Creat Clear Calc 10.39 Est GFR (MDRD) Af Amer 12 L Est GFR (MDRD) Non-Af 10 L BUN/Creatinine Ratio 14.1 Glucose 134 H Calcium 9.0 Troponin I High Sens 1305 H* B-Natriuretic Peptide 66.3 Urine Color Yellow Urine Clarity Sl. Cloudy Urine pH 5.0 Ur Specific [place] 1.030 Urine Protein 100 H Urine Glucose (UA) Normal Urine Ketones 5 H Urine Occult Blood 150 H Urine Nitrite Positive H Urine Bilirubin 3 H Urine Urobilinogen 1 H Ur Leukocyte Esterase 25 H Urine RBC 0-5 SEEN Urine WBC 5-10 SEEN Ur Squamous Epith Cells 0 SEEN Calcium Oxalate Crystal RARE Urine Bacteria 1+ Hyaline Casts 0-5 SEEN Urine Mucus 0 SEEN Radiography Diagnostic Testing: Clinical Impression(s) from Imaging Studies Brain CT 09/13/23 20:20 IMPRESSION: No acute intracranial pathology of the brain. Electronically Signed: Suman Francois DO at 20:38 EST Reading Location ID and State: [facility] / [place] Tel [phone], Service support , Cervical Spine CT 09/13/23 20:20 IMPRESSION: Degenerative changes and discogenic disease of the cervical spine. Electronically Signed: Suman Francois DO at 20:45 EST , Chest X-Ray 09/13/23 20:40 IMPRESSION: Left basilar infiltrate/atelectasis. Effusion at the left costophrenic angle. Electronically Signed: Suman Francois DO at 20:53 EST , Discharge Plan Triage Chief Complaint: Syncope ED Provider: Garrett Reinoso Dx/Rx/DC Orders Prescriptions: No Action atenolol 25 MG tablet 25 mg PO DAILY aspirin 81 MG tablet 81 mg PO DAILY@0800 Hold Instructions: Resume on 12/30/21. meclizine 25 MG tablet 25 mg PO PRN PRN (Reason: Dizziness) lisinopril 30 MG tablet 20 mg PO BID hydrochlorothiazide 12.5 MG tablet 12.5 mg PO DAILY cetirizine 10 mg tablet 10 mg PO DAILY Patient Comments: TAKE 1 TABLET BY MOUTH ONCE DAILY gabapentin 400 mg capsule 400 mg PO DAILY levothyroxine 75 mcg Tablet 75 mcg PO DAILY meloxicam [Mobic] 7.5 mg Tablet 7.5 mg PO DAILY omega-3 fatty acids Capsule 1,000 mg PO DAILY psyllium husk [Daily Fiber] 0.4 gram Capsule 0.4 g PO DAILY tamsulosin 0.4 mg Capsule 0.4 mg PO QHS tramadol 50 mg tablet 50 mg PO Q6H PRN (Reason: pain) 3 Days Qty: 10 0RF hydrocodone-acetaminophen [hydrocodone-acetaminophen] 5-325 mg tablet 1 tab PO Q6H PRN PRN (Reason: Pain) 3 Days Qty: 10 0RF Primary Care Provider: Husam Deras Referrals: Husam Deras DO [Primary Care Provider] -
[2023-09-13 22:34] LABS: Bacteria 1+ /hpf (None Seen); Calcium Oxalate Crystals Ur RARE /hpf (<or=2+); Hyaline Cast 0-5 SEEN /lpf (0-5); Red Blood Cells-Urine 0-5 SEEN /hpf (0-5); White Blood Cells 5-10 SEEN /hpf (0-5)
[2023-09-13 22:38] VITALS: BP 95/73; PULSE 66; RESP 20; O2SAT 97
--- NOTE | 2023-09-13 22:40 | HP.PCM.HOS_ITS ---
[facility] Date of Admission: 09/13/23 Date of Service: 09/13/23 Chief Complaint: Syncope HPI Narrative GEORGE KEY, is a 82 M with a past medical history of essential hypertension, hypothyroidism, obesity; BMI 33.8 this admission, remote history of tobacco abuse, coronary artery disease; status post CABG x 3, BPH; on tamsu losin, history of BPPV; on as needed meclizine, osteoarthritis; with chronic neck and back pain on as needed tramadol and recent evaluation in the ER here on 08/26/2023 for elevated troponin of 415 mg/mL consistent with suspected non-ST elevation LA complicated by fall with patient striking the back of his head with altered mental status and a head CT scan that day suggestive of possible right subdural hematoma who was then sent to [facility] where his subsequent CT scans did not show any signs of bleeding and there is no evidence of a cardiac workup was undertaken to discern the reason for his elevated troponin who re-presents to [facility] ER complaining of sync ope. This patient is a suboptimal historian and he is not sure if he hit his head more recently but he does stated he feels thirsty and is requesting something to drink. He is also not sure the last time he urinated and his memory of recent events is not good. According to the records the patient lives at home and has a neighbor who looks out for him but there is apparently no close family nearby are involved with his care. In the ED this patient was noted to have laboratory evidence of severe acute renal failure with a serum creatinine of 5.76 mg/dL and a BUN of 81 mg deciliter (up from his baseline of 1.12 mg/dL and BUN of 33 mg/dL 8 weeks ago) along with leukocytosis of 12.4 present on admission with a urinalysis positive for acute cystitis; without hematuria compounded by an elevated troponin of 1,305 pg/mL (up from his previous elevated level of 415 pg/mL on 08/26/2023) consistent with suspected non-ST elevation LA with Syncope all contributing to acute metabolic encephalopathy. I spoke to the ER physician personally to see if this patient could be sent back to [facility] where he had his recent evaluation due to his advanced age, multiple active comorbidities and full CODE STATUS. He was then admitted to the ICU for ongoing care for stay that is expected to be greater than 48 hours. REPLACED BY [facility] Medical History Arthritis Back pain BPH (benign prostatic hyperplasia) Cardiology follow-up encounter Coronary artery disease Easy bruising Former smoker History of irregular heartbeat History of stress test Leg cramps Thyroid disease Wears glasses Wears hearing aid Wears partial dentures Home Medications aspirin 81 mg tablet,delayed release 81 mg PO DAILY@0800 10/10/17 [History Last Taken 10/11/17] atenolol 25 mg tablet 25 mg PO DAILY 10/10/17 [History Last Taken 12/28/21] meclizine 25 mg tablet 25 mg PO PRN PRN Dizziness 10/10/17 [History Last Taken 11/03/21] hydrochlorothiazide 12.5 mg tablet 12.5 mg PO DAILY 10/07/18 [History Last Taken Unknown] lisinopril 30 mg tablet 20 mg PO BID 10/07/18 [History Last Taken 12/28/21] cetirizine 10 mg tablet 10 mg PO DAILY 11/03/21 [History Last Taken Unknown] gabapentin 400 mg capsule 400 mg PO DAILY 11/03/21 [History Last Taken Unknown] levothyroxine 75 mcg tablet 75 mcg PO DAILY 12/24/21 [History Last Taken 12/28/21] meloxicam 7.5 mg tablet (Mobic) 7.5 mg PO DAILY 12/24/21 [History Last Taken Unknown] omega-3 fatty acids 1,000 mg PO DAILY 12/24/21 [History Last Taken Unknown] psyllium husk 0.4 gram capsule (Daily Fiber) 0.4 g PO DAILY 12/24/21 [History Last Taken Unknown] tamsulosin 0.4 mg capsule 0.4 mg PO QHS 12/24/21 [History Last Taken Unknown] tramadol 50 mg tablet 50 mg PO Q6H PRN pain 3 days #10 tabs 12/28/21 [Rx Last Taken Unknown] hydrocodone-acetaminophen 5-325mg 5mg-325mg 1 tab PO Q6H PRN PRN Pain 3 days #10 TABLETS 11/20/22 [Rx Last Taken Unknown] Allergy/AdvReac Type Severity Reaction Status Date / Time atorvastatin [From Lipitor] AdvReac Other Verified 09/13/23 20:05 Surgical History History of cardiac catheterization History of cholecystectomy History of coronary artery bypass graft Hx of shoulder surgery Social History household members: none Smoking Status: Former smoker substance use type: does not use ROS ROS Narrative This patient is a suboptimal historian and cannot complete a full review of systems at this time. Review of Systems ROS Unobtainable: due to encephalopathy Vital Signs Vital Signs Vital Signs: 09/13/23 20:05 09/13/23 20:15 09/13/23 20:16 Temperature 96.9 F L Temperature Source Temporal Pulse Rate 73 Respiratory Rate 17 Respiratory Effort Normal Non-Labored Respiratory Pattern Normal Blood Pressure 107/79 Blood Pressure Mean 88 Pulse Ox 92 86 Oxygen Delivery Method Room Air Room Air Oxygen Flow Rate (L/min) 09/13/23 20:33 09/13/23 21:15 09/13/23 22:38 Temperature Temperature Source Pulse Rate 64 66 Respiratory Rate 18 20 H Respiratory Effort Respiratory Pattern Blood Pressure 86/70 L 95/73 Blood Pressure Mean 75 80 Pulse Ox 95 97 Oxygen Delivery Method Nasal Cannula Room Air Nasal Cannula Oxygen Flow Rate (L/min) 2 4 Weight Weight: 235 lb 3.732 oz Body Mass Index (BMI) 33.7 Physical Exam Const alert, no apparent distress and average body habitus General Appearance: cooperative Orientation / Consciousness: confused HEENT normocephalic, head/scalp atraumatic, hearing grossly normal bilaterally and mo ist oral mucous membranes Eyes PERRL and EOMs intact bilaterally Neck no lymphadenopathy and supple Resp normal respiratory effort, no retractions, no use of accessory muscles and clear to auscultation bilaterally Cardio regular rate and regular rhythm GI normal to inspection, nondistended, normoactive bowel sounds, soft to palpation, non-tender and non-distended Extremity normal to inspection and full ROM Skin Skin Narrative: Patient has no evidence of rash at this time. Neuro CN's II-XII intact bilaterally, moves all extremities and no focal motor deficits Sensorium / Orientation: awake, alert and oriented to person Speech: speech normal Motor Exam: strength 5/5 throughout Psych affect normal Results Medical Records Data Attestation: I reviewed the patient's medical records Lab / Micro Data Attestation: I reviewed the patient's lab results. 09/14/23 02:30 09/14/23 04:05 Labs: Laboratory Results - last 24 hr 09/13/23 20:35: WBC 12.4 H, RBC 5.19, Hgb 15.4, Hct 48.2, MCV 92.9, MCH 29.7, MCHC 32.0, RDW Std Deviation 49.1 H, RDW Coeff of [place] 14.3, Plt Count 147 L, MPV 11.1, Immature Gran % (Auto) 0.600, Neut % (Auto) 86.1 H, Lymph % (Auto) 4.7 L, [place] % (Auto) 8.4, Eos % (Auto) 0.0, Baso % (Auto) 0.2, Absolute Neuts (auto) 10.7 H, Absolute Lymphs (auto) 0.58 L, Nucleated RBC % 0, Differential Comment SCANNED, Sodium 139, Potassium 4.4, Chloride 107, Carbon Dioxide 25.0, Anion Gap 7, BUN 81 H, Creatinine 5.76 H, Estim Creat Clear Calc 10.39, Est GFR (MDRD) Af Amer 12 L, Est GFR (MDRD) Non-Af 10 L, BUN/Creatinine Ratio 14.1, Glucose 134 H, Calcium 9.0, Troponin I High Sens 1305 H*, B-Natriuretic Peptide 66.3 09/13/23 22:15: Urine Color Yellow, Urine Clarity Sl. Cloudy, Urine pH 5.0, Ur Specific [place] 1.030, Urine Protein 100 H, Urine Glucose (UA) Normal, Urine Ketones 5 H, Urine Occult Blood 150 H, Urine Nitrite Positive H, Urine Bilirubin 3 H, Urine Urobilinogen 1 H, Ur Leukocyte Esterase 25 H, Urine RBC 0-5 SEEN, Urine WBC 5-10 SEEN, Ur Squamous Epith Cells 0 SEEN, Calcium Oxalate Crystal RARE, Urine Bacteria 1+, Hyaline Casts 0-5 SEEN, Urine Mucus 0 SEEN Imagaing Radiology Impression Brain CT 09/13/23 20:20 IMPRESSION: No acute intracranial pathology of the brain. Electronically Signed: Suman Francois DO at 20:38 EST Reading Location ID and State: [facility] / [place] Tel [phone], Service support , Cervical Spine CT 09/13/23 20:20 IMPRESSION: Degenerative changes and discogenic disease of the cervical spine. Electronically Signed: Suman Francois DO at 20:45 EST , Chest X-Ray 09/13/23 20:40 IMPRESSION: Left basilar infiltrate/atelectasis. Effusion at the left costophrenic angle. Electronically Signed: Suman Francois DO at 20:53 EST , Assessment & Plan Assessment/Plan (1) Syncope and collapse: (2) Elevated troponin: PLAN: Plan 1. Severe acute renal failure with highly elevated serum creatinine of 5.76 mg/dL and BUN of 81 mg/dL (up from his baseline of 1.12 mg/dL and BUN of 33 mg/dL 8 weeks ago) in the setting of known BPH - Admit to ICU. Give vigorous IV volume resuscitation and recheck BMP in the a.m. to ensure improvement. Resume tamsulosin. Little placed in ER with only approximately 20 cc of urinary output noted at this time with dark yellow urine. Therefore, we will consult nephrology to see this patient on rounds in the a.m. for further recommendations with help appreciated in advance. 2. Acute cystitis; without hematuria and leukocytosis of 12.4 present on admission complicating #1 - Continue broad-spectrum antibiotics with IV Zosyn and await culture and sensitivity data. Give Tylenol as needed pain or fever. 3. Elevated troponin of 1,305 pg/mL present on admission (up from his previous elevated level of 415 pg/mL on 08/26/2023 when his creatinine was only slightly elevated at 1.6 mg/dL) with a second troponin of 5,737 pg/mL consistent with suspected non-ST elevation LA in the setting of known coronary artery disease and patient status post CABG x 3 along with likely syncopal event - The ER physician spoke with the life skills instructor on-call who recommended no heparin at this time so full-dose Lovenox and Plavix was added to ECASA. No statin was given due to his allergy profile. Serialize troponin. Check echocardiogram to evaluate left ventricular ejection fraction. Check carotid doppler to evaluate for stenosis. Finally, we will formally consult the life skills instructor on-call to see this patient on-rounds in the AM for further recommendations regarding cardiac catheterization this admission with help appreciated in advance. 4. Acute metabolic encephalopathy attributable to #1 - #3 - Continue supportive care and monitor for improvement. 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 5. Recent evaluation in the ER here on 08/26/2023 for elevated troponin of 415 mg/mL consistent with suspected non-ST elevation LA complicated by fall with patient striking the back of his head with altered mental status and a head CT scan that day suggestive of possible right subdural hematoma who was then sent to [facility] where his subsequent CT scans did not show any signs of bleeding and there is no evidence of a cardiac workup having been undertaken to discern the reason for his elevated troponin - Noted. 6. Essential hypertension - Hold HCTZ and lisinopril along with other potentially nephrotoxic agents. Give IV hydralazine as needed for systolic blood pressure greater than 160 mmHg. 7. Hypothyroidism - Continue Synthroid and check TSH. 8. Obesity; BMI 33.8 this admission - Weight loss will be recommended. 9. Remote history of tobacco abuse - Noted. 10. History of BPPV; on as needed meclizine - Resume home regimen as previous. 11. Osteoarthritis; with chronic neck and back pain - Stable. Give Tylenol as needed for pain. 12. DVT prophylaxis - Patient was started on full-dose Lovenox for #3 plus SCDs. Total time: Approximately 95 minutes. Charges/Coding Visit Charges Inpatient E&M: 29583 Init Hosp L3
[2023-09-13 22:46] VITALS: BP 102/58; PULSE 68; RESP 20; TEMP 36.3; O2SAT 93
[2023-09-13] MEDS: Ceftriaxone 1 GM/50 ML BAG IV (22:56)
--- NOTE | 2023-09-13 23:36 | ECHOCS_ITS ---
Reason For Study: S/P AL Procedure This was a 2D Doppler, Color Flow transthoracic echocardiogram. The study was technically difficult. Exam performed portable in ICU/CCU. Left Ventricle Normal LV size. The left ventricular ejection fraction is 55 %. Stage 1 diastolic dysfunction. Septal wall motion consistent with RV pressure and volume overload. Right Ventricle Severely dilated right ventricle. Moderately severe global right ventricular systolic dysfunction. Atria Normal left atrium. The right atrium is moderately enlarged. Mitral Valve The mitral valve is structurally normal. No prolapse or stenosis seen. Tricuspid Valve Mild tricuspid valve insufficiency. Right ventricular systolic pressure estimated to be 47 mmHg. Aortic Valve Aortic sclerosis, no stenosis. Pulmonic Valve The pulmonic valve is not well visualized. Great Vessels The aortic root is not well visualized. Medication Diluted definity 2ml given slow IV push to enhance endocardial definition. MMode/2D Measurements & Calculations LVIDd: 4.1 cm IVSd: 1.0 cm LVOT diam: 2.0 cm LVIDs: 2.2 cm LVPWd: 1.0 cm LVOT area: 3.1 cm2 RVDd: 4.9 cm FS: 45.6 % Ao root diam: 3.2 cm LAV(MOD-bp): 65.4 ml LVAd ap4: 25.9 cm2 LAV(MOD-bp) Indexed: 29.4 ml/m2 LVLd ap4: 7.2 cm LAV(MOD-sp2): 67.0 ml EDV(MOD-sp4): 76.0 ml LAV(MOD-sp4): 60.3 ml EDV(sp4-el): 79.2 ml LVAs ap4: 16.2 cm2 LVLs ap4: 5.9 cm ESV(MOD-sp4): 36.5 ml ESV(sp4-el): 37.6 ml EF(MOD-sp4): 52.0 % EF(sp4-el): 52.5 % LVAd ap2: 27.5 cm2 SV(MOD-sp4): 39.5 ml SV(MOD-sp2): 40.6 ml LVLd ap2: 8.3 cm EDV(MOD-sp2): 75.2 ml EDV(sp2-el): 77.3 ml LVAs ap2: 15.7 cm2 LVLs ap2: 6.0 cm ESV(MOD-sp2): 34.6 ml ESV(sp2-el): 35.0 ml EF(MOD-sp2): 54.0 % SV(sp4-el): 41.6 ml LA dimension(2D): 4.0 cm LA A4 area: 21.7 cm2 RA A4 area: 23.1 cm2 TAPSE: 0.75 cm Time Measurements MV dec time: 0.44 sec Doppler Measurements & Calculations MV E max nura: 49.1 cm/sec Lat Peak E' Nura: 10.8 cm/sec Med Peak E' Nura: 6.6 cm/sec MV A max nura: 62.8 cm/sec E/E' lat: 4.6 E/E' med: 7.4 MV E/A: 0.78 Ao V2 max: 141.1 cm/sec LV V1 max: 88.3 cm/sec MV dec slope: 111.4 cm/sec2 Ao max P.0 mmHg LV V1 max P.1 mmHg Ao V2 mean: 91.8 cm/sec LV V1 mean P.6 mmHg Ao mean P.9 mmHg LV V1 mean: 58.8 cm/sec Ao V2 VTI: 26.5 cm LV V1 VTI: 16.4 cm AV (velocity ratio): 0.62 ANGEL(I,D): 2.0 cm2 ANGEL(V,D): 2.0 cm2 SV(LVOT): 51.7 ml PA V2 max: 79.5 cm/sec TR max nura: 304.6 cm/sec PA max PG (full): 2.0 mmHg TR max P.1 mmHg ECHO/Echo Complete W/ Contrast Interpretation Summary The left ventricular ejection fraction is 55 %. Stage 1 diastolic dysfunction. Severely dilated right ventricle. Moderately severe global right ventricular systolic dysfunction. Septal wall motion consistent with RV pressure and volume overload The right atrium is moderately enlarged. Mild tricuspid valve insufficiency. Right ventricular systolic pressure estimated to be 47 mmHg. Ordering Physician: Benton Perez Performed By: Amena Lee RDCS
--- NOTE | 2023-09-13 23:36 | CDU_ITS ---
Reason For Study: Syncope Rt. Velocities/BP Lt. Velocities/BP Prox CCA 96 cm/sec. Prox CCA 76.5/5.3 cm/sec. Mid CCA 108.5/5.3 cm/sec. Mid CCA 103.7/10.2 cm/sec. Dist CCA 60.5/2.9 cm/sec. Dist CCA 70.7/8 cm/sec. Prox ICA 115.8/16.3 cm/sec. Bulb, 451.5/15.3 cm/sec. Mid ICA 108.5/15.1 cm/sec. Prox ICA 192.5/11.1 cm/sec. Dist ICA 112.1/12.7 cm/sec. Mid ICA 145.9/21.5 cm/sec. Rt. ICA/CCA = 1.21. Dist ICA 104.4/16.3 cm/sec. Prox ECA 157.6 cm/sec. Lt. ICA/CCA = 5.90. Rt. Vert. 45.6/6 cm/sec. Prox ECA 283.6 cm/sec. Lt. Vert. 90.6/9.4 cm/sec. Right Extracranial There is heterogeneous, smooth atherosclerotic plaque noted in the right common carotid artery. There is heterogeneous, irregular atherosclerotic plaque noted in the right internal carotid artery. There is heterogeneous, irregular atherosclerotic plaque noted in the right external carotid artery. Antegrade flow is noted in the right vertebral artery. Left Extracranial There is heterogeneous, irregular atherosclerotic plaque noted in the left common carotid artery. There is heterogeneous, irregular atherosclerotic plaque noted in the left internal carotid artery. There is heterogeneous, irregular atherosclerotic plaque noted in the left external carotid artery. Antegrade flow is noted in the left vertebral artery. There is heterogeneous, irregular atherosclerotic plaque noted in the left bulb. Procedure Carotid Duplex 16496. This is a Carotid Duplex examination using B-mode, color flow and specral Doppler. Preliminary report given to Raquel LAURA. Exam performed portable in ICU/CCU. VL/Carotid Duplex Ultrasound Interpretation Summary Mild (<50%) stenosis right extracranial internal carotid. Severe (>70%) stenosis left extracranial internal carotid. Patent and antegrade vertebrals bilaterally. Ordering Physician: Benton Perez Referring Physician: Husam Deras Performed By: Sarika Esquivel RVT
--- OUTSIDE RECORDS SUMMARY | 2023-09-13 23:52 | XMS RPT_ITS | CCD ---
Author Name Unknown Address [address] [place] [address] Organization [facility] Care Team Providers Care Fine Unhairer Name Role Phone JOHN, JOSE E Unavailable [...] Care Provider Mena Machuca DO Unavailable Mattham, Diane L Unavailable Yasmin Marquez RN Unavailable Braeden GUTIERREZ Husam Ebony Primary Care Provider Mena Machuca DO D Unavailable Robotham, Diane L Unavailable Yasmin Marquez RN Unavailable Husam Deras DO Primary Care Provider Robotham, Diane L Unavailable Yasmin Marquez RN Unavailable Humberto Wang RN Unavailable Braeden GUTIERREZ Husam Ebony Primary Care Provider Mena Machuca DO Unavailable Reshma, Diane L Unavailable Humberto Wang RN Unavailable Rafita LAURA, Denisse Unavailable Flaco LAURA, Humberto Mascorro Unavailable DERAS, HUSAM L Primary Care Unavailable GIDEON BUENO Referring Unavailab le Robotham, Diane L Unavailable Rafita LAURA, Denisse Unavailable Reshma GREENFIELD, Diane L Unavailable Reshma GREENFIELD, Diane L Unavailable JAY MATHEW Attending UnavailSOHEILA Beasley Unavailable [...] Unavailable DERAS, HUSAM L Primary Care Unavailable JOSE M KAY Referring Unavailable JOSE M KAY Attending Unavailable DERAS, HUSAM L Referring Unavailable DERAS, HUSAM L Primary Care Unavailable DERAS, HUSAM L Referring Unavailable ERIKA, STU Attending Unavailable DERAS, HUSAM L Primary Care Unavailable PODLOGJOCELIN GUPTA Attending Unavailable DERAS, HUSAM L Primary Care [...] Unavailable DERAS, HUSAM L Primary Care Unavailable DREAS, HUSAM L Primary Care Unavailable MEHREEN HARVINDER Referring Unavailable VETOVITZ, SEBLE Referring Unavailable VETOYEMITZ, SEBLE Attending Unavailable DERAS, HUSAM L Primary Care Unavailable VETOVITZ, SEBLE Referring Unavailable DERAS, HUSAM L Primary Care Unavailable DERAS, HUSAM L Attending Unavailable DERAS, HUSAM L Primary Care Unavailable DERAS, HUSAM L Primary Care Unavailable MENA MACHUCA Referring Unavailable MENA MACHUCA Attending Unavailable DERAS, HUSAM L Primary Care Unavailable KNOBLE, HARVINDER Attending Unavailable DERAS, HUSAM L Primary Care Unavailable KNOBLE, HARVINDER Referring Unavailable DERAS, HUSAM L Primary Care Unavailable KNMARICRUZ, HARVINDER Referring Unavailable DERAS, HUSAM L Primary Care Unavailable HARVINDER VERDE Attending Unavailable DERAS, HUSAM L Primary Care Unavailable GIDEON BUENO Referring Unavailab GIDEON Payan Attending Unavailab le DERAS, HUSAM L Primary Care Unavailable MENA MACHUCA Referring Unavailable Allergies Allergy Classification Reported Allergen(s) Allergy Type Date of Onset Reaction(s) Facility (20 sources) atorvastatin; Translations: [ATORVASTATIN] Drug Allergy 08-16-2007 Intolerance [facility] Repository Medications Current Medications Medication Drug Class(es) Dates Sig (Normalized) Sig (Original) perflutren lipid microspheres 1.3 mL in NaCl (PF) 0.9% 10 mL injection (DEFINITY) (20 sources) Start: 03-18-2023 End: 06-16-2024 perflutren lipid microspheres 1.3 mL in NaCl (PF) 0.9% 10 mL injection (DEFINITY) Completed/Discontinued Medications Medication Drug Class(es) Dates Sig (Normalized) Sig (Original) [id number] 200 actuat albuterol 0.09 mg/actuat metered dose [...] Coronary atherosclerosis; Translations: [Atherosclerotic heart disease of marshall coronary artery without angina pectoris] Onset: 8 [...] injury, with loss of consciousness, initial encounter ([facility])] Onset: 3 Episodic Nutritional deficiencies (20 sources) [...] [Obesity, unspecified] Onset: 8 10-18-2017 Chronic Other skin disorders (3 sources) Bilateral localized [...] graft; 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] Onset: 3 Episodic Diabetes mellitus without complication (20 sources) Hyperglycemia; Translations: [Impaired fasting glucose] Onset: 8 12-19-2017 Episodic Fluid and electrolyte disorders (3 sources) Hyperkalemia; Translations: [Hyperkalemia] Onset: 3 04-26-2023 Episodic Nonmalignant breast conditions (20 sources) Gynecomastia; Translations: [Hypertrophy of breast] Onset: 2 07-20-2012 Episodic Other and unspecified benign neoplasm (20 sources) Benign neoplasm of colon; Translations: [Benign neoplasm of colon, unspecified] Onset: 8 02-01-2008 Episodic Other connective tissue disease (20 sources) Full thickness rotator cuff tear; Translations: [Complete rotator cuff tear or rupture of right shoulder, not specified as traumatic] Onset: 5 09-02-2015 Episodic Other connective tissue disease (20 sources) Pain in right lower limb; Translations: [Pain in right leg] Onset: 0 10-23-2019 Episodic Other connective tissue disease (12 sources) Bilateral calf pain; Translations: [Pain in right lower leg] Onset: 3 04-27-2023 Episodic Other connective tissue disease (1 source) Pain in right leg; Translations: [Pain of right lower extremity] Onset: 0 Episodic Other lower respiratory disease (20 sources) Dyspnea; Translations: [Shortness of breath] Onset: 2 Episodic Other lower respiratory disease (20 sources) Restrictive lung disease; Translations: [Other disorders of lung] Onset: 2 Episodic Other lower respiratory disease (1 source) Shortness of breath; Translations: [SOB (shortness of breath)] Onset: 2 Episodic Other nervous system disorders (2 sources) Anesthesia of skin; Translations: [Numbness and tingling of foot] Onset: 3 Episodic Other nervous system disorders (2 sources) Paresthesia of skin; Translations: [Numbness and tingling of foot] Onset: 3 Episodic Other non-traumatic joint disorders (20 sources) Shoulder pain; Translations: [Pain in right shoulder] Onset: 2 08-09-2012 Episodic Other non-traumatic joint disorders (20 sources) Shoulder joint pain; Translations: [Pain in unspecified shoulder] Onset: 5 02-10-2015 Episodic Other non-traumatic joint disorders (20 sources) Pain in right knee; Translations: [Pain in joint, lower leg] Onset: 9 04-20-2019 Episodic Other non-traumatic joint disorders (20 sources) Pain in right shoulder; Translations: [Pain in joint, shoulder region] Onset: 2 08-09-2012 Episodic Other non-traumatic joint disorders (2 sources) Pain in left knee; Translations: [Pain in both knees, unspecified chronicity] Onset: 9 Episodic Other nutritional; endocrine; and metabolic disorders (20 sources) Weight gain; Translations: [Abnormal weight gain] Onset: 1 07-21-2021 Episodic Other screening for suspected conditions (not mental disorders or infectious disease) (20 sources) Electrocardiogram abnormal; Translations: [Abnormal electrocardiogram [ECG] [EKG]] Onset: 4 Episodic Other skin disorders (20 sources) Actinic keratosis; Translations: [Actinic keratosis] Onset: 1 01-20-2021 Episodic Other skin disorders (1 source) Localized swelling, mass and lump, lower limb, bilateral; Translations: [Localized swelling of both lower legs] Onset: 3 Episodic Residual codes; unclassified (20 sources) Family history of malignant neoplasm of gastrointestinal tract; Translations: [Family history of malignant neoplasm of digestive organs] Onset: 7 08-07-2010 Episodic Spondylosis; intervertebral disc disorders; other back problems (20 sources) Spinal stenosis of lumbar region; Translations: [Spinal stenosis, lumbar region with neurogenic claudication] Onset: 1 04-09-2021 Episodic Results Test Name Value Interpretation Reference Range Facil ity Vital Signs Date Time Vital Sign Value Performing Clinician Faci lity 07-21-2023 12:43-0500 Body height 177.5 cm Aurelia Trevino MD Work Phone: [facility] 07-21-2023 12:43-0500 Body weight 111.58 kg Aurelia Trevino MD Work Phone: [facility] 07-21-2023 12:43-0500 Diastolic blood pressure 58 mm[Hg] Aurelia Trevino MD Work Phone: [facility] 07-21-2023 12:43-0500 Heart rate 59 /min Aurelia Trevino MD Work Phone: [facility] 07-21-2023 12:43-0500 Respiratory rate 14 /min Aurelia Trevino MD Work Phone: [facility] 07-21-2023 12:43-0500 SaO2% (BldA) [Mass fraction] 95 % Aurelia Trevino MD Work Phone: [facility] 07-21-2023 12:43-0500 Systolic blood pressure 122 mm[Hg] Aurelia Trevino MD Work Phone: [facility] 07-20-2023 14:55-0500 Body weight 112.31 kg Jocelin Podlogar WICK TENDER.COMMUNITY MANAGER Work Phone: [facility] 07-20-2023 14:55-0500 Diastolic blood pressure 64 mm[Hg] Jocelin Podlogar WICK TENDER.COMMUNITY MANAGER Work Phone: [facility] 07-20-2023 14:55-0500 Heart rate 54 /min Jocelin Podlogar WICK TENDER.COMMUNITY MANAGER Work Phone: [facility] 07-20-2023 14:55-0500 Respiratory rate 26 /min Jocelin Podlogar WICK TENDER.COMMUNITY MANAGER Work Phone: [facility] 07-20-2023 14:55-0500 SaO2% (BldA) [Mass fraction] 92 % Jocelin Podlogar WICK TENDER.COMMUNITY MANAGER Work Phone: [facility] 07-20-2023 14:55-0500 Systolic blood pressure 128 mm[Hg] Jocelin Podlogar WICK TENDER.COMMUNITY MANAGER Work Phone: [facility] 07-19-2023 12:16-0500 Body temperature 97.5 [degF] Zachary Pendlebury WICK TENDER.COMMUNITY MANAGER Work Phone: [facility] 07-19-2023 12:16-0500 Body weight 112.04 kg [facility] WICK TENDER.COMMUNITY MANAGER Work Phone: [facility] 07-19-2023 12:16-0500 Diastolic blood pressure 60 mm[Hg] Zachary Pendlebury WICK TENDER.COMMUNITY MANAGER Work Phone: [facility] 07-19-2023 12:16-0500 Heart rate 72 /min Zachary Pendlebury WICK TENDER.COMMUNITY MANAGER Work Phone: [facility] 07-19-2023 12:16-0500 Respiratory rate 16 /min Zachary Pendlebury WICK TENDER.COMMUNITY MANAGER Work Phone: [facility] 07-19-2023 12:16-0500 SaO2% (BldA) [Mass fraction] 94 % Zachary Pendlebury WICK TENDER.COMMUNITY MANAGER Work Phone: [facility] 07-19-2023 12:16-0500 Systolic blood pressure 122 mm[Hg] Zachary Jack APRN.COMMUNITY MANAGER Work Phone: [facility] 04-27-2023 12:27-0400 Body temperature 98.01 [degF] Husam Deras DO Work Phone: [facility] 04-27-2023 12:27-0400 Body weight 110.22 kg Husam Deras DO Work Phone: [facility] 04-27-2023 12:27-0400 Diastolic blood pressure 60 mm[Hg] Husam Deras DO Work Phone: [facility] 04-27-2023 12:27-0400 Heart rate 64 /min Husam Deras DO Work Phone: [facility] 04-27-2023 12:27-0400 Respiratory rate 20 /min Husam Deras DO Work Phone: [facility] 04-27-2023 12:27-0400 Systolic blood pressure 138 mm[Hg] Husam Deras DO Work Phone: [facility] 04-26-2023 08:36-0400 Body height 177.8 cm Gideon Bueno DO Work Phone: [facility] 04-26-2023 08:36-0400 Body weight 109.77 kg Gideon Bueno DO Work Phone: [facility] 04-26-2023 08:36-0400 Diastolic blood pressure 62 mm[Hg] Gideongabrielle Bueno DO Work Phone: [facility] 04-26-2023 08:36-0400 Heart rate 60 /min Gideon Bueno DO Work Phone: [facility] 04-26-2023 08:36-0400 SaO2% (BldA) [Mass fraction] 97 % Gideon Bueno DO Work Phone: [facility] 04-26-2023 08:36-0400 Systolic blood pressure 124 mm[Hg] Gideon Beeins DO Work Phone: [facility] 03-18-2023 10:08-0400 Body weight 112.04 kg Harvinder Verde WICK TENDER.COMMUNITY MANAGER Work Phone: [facility] 03-18-2023 10:08-0400 Diastolic blood pressure 66 mm[Hg] Harvinder Verde WICK TENDER.COMMUNITY MANAGER Work Phone: [facility] 03-18-2023 10:08-0400 Heart rate 60 /min Harvinder Verde WICK TENDER.COMMUNITY MANAGER Work Phone: [facility] 03-18-2023 10:08-0400 Respiratory rate 16 /min Harvinder Verde WICK TENDER.COMMUNITY MANAGER Work Phone: [facility] 03-18-2023 10:08-0400 SaO2% (BldA) [Mass fraction] 95 % Harvinder Verde WICK TENDER.COMMUNITY MANAGER Work Phone: [facility] 03-18-2023 10:08-0400 Systolic blood pressure 112 mm[Hg] Harvinder Verde WICK TENDER.COMMUNITY MANAGER Work Phone: [facility] 03-08-2023 13:59-0400 Diastolic blood pressure 64 mm[Hg] Mena Machuca DO Work Phone: [facility] 03-08-2023 13:59-0400 Heart rate 62 /min Mena Machuca DO Work Phone: [facility] 03-08-2023 13:59-0400 SaO2% (BldA) [Mass fraction] 95 % Mena Machuca DO Work Phone: [facility] 03-08-2023 13:59-0400 Systolic blood pressure 118 mm[Hg] Mena Machuca DO Work Phone: [facility] 01-21-2023 08:36-0400 Body temperature 96.49 [degF] Husam Deras DO Work Phone: [facility] 01-21-2023 08:36-0400 Body weight 109.32 kg Husam Deras DO Work Phone: [facility] 01-21-2023 08:36-0400 Diastolic blood pressure 60 mm[Hg] Husam Deras DO Work Phone: [facility] 01-21-2023 08:36-0400 Heart rate 64 /min Husam Deras DO Work Phone: [facility] 01-21-2023 08:36-0400 Respiratory rate 24 /min Husam Deras DO Work Phone: [facility] 01-21-2023 08:36-0400 Systolic blood pressure 130 mm[Hg] Husam Deras DO Work Phone: [facility] 10-26-2022 11:03-0500 Body height 177.8 cm Jose M Kay WICK TENDER.COMMUNITY MANAGER Work Phone: [facility] 10-26-2022 11:03-0500 Body weight 104.64 kg Jose M Kay WICK TENDER.COMMUNITY MANAGER Work Phone: [facility] 10-26-2022 11:03-0500 Diastolic blood pressure 54 mm[Hg] Jose M Kay WICK TENDER.COMMUNITY MANAGER Work Phone: [facility] 10-26-2022 11:03-0500 Heart rate 55 /min Jose M Kay WICK TENDER.COMMUNITY MANAGER Work Phone: [facility] 10-26-2022 11:03-0500 SaO2% (BldA) [Mass fraction] 98 % Jose M Kay WICK TENDER.COMMUNITY MANAGER Work Phone: [facility] 10-26-2022 11:03-0500 Systolic blood pressure 128 mm[Hg] Jose M Kay WICK TENDER.COMMUNITY MANAGER Work Phone: [facility] 07-21-2022 12:18-0500 Body weight 97.98 kg Fernanda Zurawick WICK TENDER.COMMUNITY MANAGER Work Phone: [facility] 07-21-2022 12:18-0500 Diastolic blood pressure 60 mm[Hg] Fernanda Zurawick WICK TENDER.COMMUNITY MANAGER Work Phone: [facility] 07-21-2022 12:18-0500 Heart rate 62 /min Fernanda Zurawick WICK TENDER.COMMUNITY MANAGER Work Phone: [facility] 07-21-2022 12:18-0500 Respiratory rate 18 /min Fernanda Zurawick WICK TENDER.COMMUNITY MANAGER Work Phone: [facility] 07-21-2022 12:18-0500 Systolic blood pressure 110 mm[Hg] Fernanda Zurawick WICK TENDER.COMMUNITY MANAGER Work Phone: [facility] 04-14-2022 11:13-0400 Body temperature 98.01 [degF] Husam Deras DO Work Phone: [facility] 04-14-2022 11:130400 Body weight 103.87 kg Husam Deras DO Work Phone: [facility] 04-14-2022 11:13-0400 Diastolic blood pressure 60 mm[Hg] Husam Deras DO Work Phone: [facility] 04-14-2022 11:13-0400 Heart rate 64 /min Husam Deras DO Work Phone: [facility] 04-14-2022 11:13-0400 Respiratory rate 16 /min Husam Deras DO Work Phone: [facility] 04-14-2022 11:13-0400 Systolic blood pressure 130 mm[Hg] Husam Deras DO Work Phone: [facility] 02-18-2022 08:04-0400 Body height 177.8 cm Gideongabrielle Bueno DO Work Phone: [facility] 02-18-2022 08:04-0400 Body weight 106.14 kg Gideon Bueno DO Work Phone: [facility] 02-18-2022 08:04-0400 Diastolic blood pressure 56 mm[Hg] Gideon Beeins DO Work Phone: [facility] 02-18-2022 08:04-0400 Heart rate 56 /min Gideon Bueno DO Work Phone: [facility] 02-18-2022 08:04-0400 SaO2% (BldA) [Mass fraction] 97 % Gideon Bueno DO Work Phone: [facility] 02-18-2022 08:04-0400 Systolic blood pressure 116 mm[Hg] Gideon Bueno DO Work Phone: [facility] 02-11-2022 10:50-0400 Body height 177.8 cm Respiratory Wstr Work Phone: [facility] 02-11-2022 10:50-0400 Body weight 107.05 kg Respiratory Wstr Work Phone: [facility] 02-11-2022 10:50-0400 Heart rate 59 /min Respiratory Wstr Work Phone: [facility] 02-11-2022 10:50-0400 Respiratory rate 14 /min Respiratory Wstr Work Phone: [facility] 02-11-2022 10:50-0400 SaO2% (BldA) [Mass fraction] 96 % Respiratory Wstr Work Phone: [facility] 02-01-2022 08:11-0400 Body temperature 96.6 [degF] Husam Deras DO Work Phone: [facility] 02-01-2022 08:11-0400 Body weight 108.86 kg Husam Deras DO Work Phone: [facility] 02-01-2022 08:11-0400 Diastolic blood pressure 60 mm[Hg] Husam Deras DO Work Phone: [facility] 02-01-2022 08:11-0400 Heart rate 64 /min Husam Deras DO Work Phone: [facility] 02-01-2022 08:11-0400 Respiratory rate 20 /min Husam Deras DO Work Phone: [facility] 02-01-2022 08:11-0400 Systolic blood pressure 136 mm[Hg] Husam Deras DO Work Phone: [facility] 01-04-2022 15:00-0400 Diastolic blood pressure 74 mm[Hg] Mi Nurse Work Phone: [facility] 01-04-2022 15:00-0400 Heart rate 72 /min Mi Nurse Work Phone: [facility] 01-04-2022 15:00-0400 Systolic blood pressure 118 mm[Hg] Mi Nurse Work Phone: [facility] 12-21-2021 10:30-0400 Body weight 108.23 kg Fernanda Zurawick WICK TENDER.COMMUNITY MANAGER Work Phone: [facility] 12-21-2021 10:30-0400 Diastolic blood pressure 60 mm[Hg] Fernanda Zurawick WICK TENDER.COMMUNITY MANAGER Work Phone: [facility] 12-21-2021 10:30-0400 Heart rate 60 /min Fernanda Zurawick WICK TENDER.COMMUNITY MANAGER Work Phone: [facility] 12-21-2021 10:30-0400 Respiratory rate 16 /min Fernanda Zurawick WICK TENDER.COMMUNITY MANAGER Work Phone: [facility] 12-21-2021 10:30-0400 Systolic blood pressure 130 mm[Hg] Fernanda Zurawick WICK TENDER.COMMUNITY MANAGER Work Phone: [facility] Encounters Encounter Date Encounter Type Care Provider Facility Start: 09-02-2023 End: 09-03-2023 [facility] Facility:[facility] Start: 08-27-2023 Orders Only Deanna amaya PA-C Work Phone: [facility] PROVIDER ADULT Procedures Date Procedure Procedure Detail Performing Clinician Start: 07-21-2023 INFLUENZA VACCINE, P RSV FREE, AGE 65+ YR, HIGH DOSE, QUADRIVALENT (FLUZONE HIGH-DOSE) Aurelia Trevino MD Work Phone: Start: 07-21-2023 Brncdilat rspse spmt ry pre&post-brncdilat admn Aurelia Trevino MD Work Phone: Start: 04-18-2023 Arthrocentesis aspir &/inj major jt/bursa w/o us Seble Vetovitz PA-C Work Phone: Start: 04-11-2023 Echo tthrc r-t 2d w/wom-mode compl spec&colr d Harvinder Verde WICK TENDER.COMMUNITY MANAGER Work Phone: Start: 04-11-2023 LVEF TRANSTHORACIC ECHO Harvinder Verde WICK TENDER.COMMUNITY MANAGER Work Phone: Start: 10-26-2022 Ecg routine ecg w/le ast 12 lds i&r only [facility] Provider Start: 07-21-2022 INFLUENZA SEASONAL QUADRIVALENT HIGH DOSE AGE 65+ Fernanda Santos WICK TENDER.COMMUNITY MANAGER Work Phone: Start: 07-21-2022 Hop [facility] COVI D-19 BIVALENT BOOSTER VACCINE, AGE 12+ YR Fernanda Santos WICK TENDER.COMMUNITY MANAGER Work Phone: Start: 06-28-2022 Arthrocentesis aspir &/inj major jt/bursa w/o us Seble Vetovitz PA-C Work Phone: Start: 06-14-2022 Arthrocentesis aspir &/inj major jt/bursa w/o us Seble Vetovitz PA-C Work Phone: Start: 02-11-2022 Brncdilat rspse [...] artery bypass grafting Hx of CABG Jose Myolanda Kay APRN.COMMUNITY MANAGER Work Phone: History of coronary artery bypass grafting S/P CABG x 3 Gideon Bueno DO Work Phone: Plan of Treatment Date Care Activity Detail Author Start: 08-30-2030 Urine microalbumin profile DTaP,Tdap,Td Vaccine (2 - Td or Tdap) [facility] Start: 08-27-2026 Diabetes Screening Diabetes Screening [facility] Start: 04-26-2026 DIABETES SCREEN DIABETES SCREEN [facility] Start: 04-26-2026 Diabetes Screening Diabetes Screening [facility] Start: 03-31-2026 DIABETES SCREEN DIABETES SCREEN [facility] Start: 03-18-2026 DIABETES SCREEN DIABETES SCREEN [facility] Start: 01-21-2026 DIABETES SCREEN DIABETES SCREEN [facility] Start: 07-21-2025 DIABETES SCREEN DIABETES SCREEN [facility] Start: 12-21-2024 DIABETES SCREEN DIABETES SCREEN [facility] Start: 07-21-2024 DIABETES SCREEN DIABETES SCREEN [facility] Start: 10-26-2023 BP CONTROLLED (<130/80) BP CONTROLLED (<130/80) [facility] Start: 10-25-2023 ANNUAL PCP TEAM CHRONIC DISEASE VISIT ANNUAL PCP TEAM CHRONIC DISEASE VISIT [facility] Start: 10-25-2023 BP CONTROLLED (<130/80) BP CONTROLLED (<130/80) [facility] Start: 07-21-2023 ANNUAL PCP TEAM CHRONIC DISEASE VISIT ANNUAL PCP TEAM CHRONIC DISEASE VISIT [facility] Start: 07-21-2023 BP CONTROLLED (<130/80) BP CONTROLLED (<130/80) [facility] Start: 07-21-2023 Hepatitis B surface antibody level LDL CHOLESTEROL [facility] Start: 05-13-2023 Covid-19 Vaccine () Covid-19 Vaccine () [facility] Start: 05-13-2023 Influenza vaccination [facility] Start: 04-14-2023 ANNUAL PCP TEAM CHRONIC DISEASE VISIT ANNUAL PCP TEAM CHRONIC DISEASE VISIT [facility] Start: 03-18-2023 End: 05-18-2023 Comprehensive metabolic 2000 panel - Serum or Plasma [facility] Work Phone: Immunizations Immunization Date Immunization Notes Care Provider Davi zhang 07-21-2023 influenza (HD-IIV4) vaccine, age 65+ yr, high dose, quadrivalent, PF (FLUZONE HIGH-DOSE) Pulm Wstr Work Phone: [facility] 07-21-2022 COVID-19 booster vaccine, age 12+ yr, bivalent (PFIZER-BIONTECH) Fernanda Santos WICK TENDER.COMMUNITY MANAGER Work Phone: [facility] 07-21-2022 influenza, high-dose , quadrivalent vaccine (FLUZONE HIGH DOSE QUADRIVALENT) Fernanda Santos WICK TENDER.COMMUNITY MANAGER Work Phone: [facility] 07-21-2022 influenza virus vacc ine, unspecified formulation Denisse Eller RN Work Phone: [facility] 10-19-2021 pneumococcal polysaccharide vaccine, 23 valent [facility] 2 Work Phone: [facility] Work Phone: 07-21-2021 influenza, high-dose , quadrivalent vaccine (FLUZONE HIGH DOSE QUADRIVALENT) [facility] Work Phone: [facility] Work Phone: 11-14-2020 COVID-19 vaccine, ag e 12+ yr (PFIZER-BIONTECH - PURPLE TOP) [facility] 2 Work Phone: [facility] Work Phone: 10-24-2020 COVID-19 vaccine, ag e 12+ yr (PFIZER-BIONTECH - PURPLE TOP) [facility] 2 Work Phone: [facility] 06-27-2019 influenza, high dose seasonal, preservative-free [facility] 2 Work Phone: [facility] Work Phone: 07-05-2017 influenza, high dose seasonal, preservative-free Mfi 2 Work Phone: [facility] Work Phone: 09-20-2016 influenza, high dose seasonal, preservative-free Mfi 2 Work Phone: [facility] Work Phone: 07-15-2015 influenza, high dose seasonal, preservative-free [facility] 2 Work Phone: [facility] Work Phone: 07-15-2015 pneumococcal conjuga te vaccine, 13 valent [facility] 2 Work Phone: [facility] Work Phone: 01-14-2014 zoster vaccine, live [facility] Work Phone: [facility] 01-31-2013 tetanus and diphther ia toxoids, adsorbed, preservative free, for adult use (2 Lf of tetanus toxoid and 2 Lf of diphtheria toxoid) [facility] 2 Work Phone: [facility] Work Phone: 06-12-2012 influenza virus vacc ine, unspecified formulation [facility] 2 Work Phone: [facility] Work Phone: 08-26-2008 influenza virus vacc ine, unspecified formulation [facility] 2 Work Phone: [facility] 11-15-2007 pneumococcal polysaccharide vaccine, 23 valent Mfi 2 Work Phone: [facility] Work Phone: 08-16-2007 influenza virus vacc ine, unspecified formulation [facility] 2 Work Phone: [facility] Work Phone: Payers Date Payer Category Payer Medicaid MEDICAID [facility] MEDICAID [id number] 2022-Present [phone] [address] [place] [address] Medicaid [id number] 2022 Medicaid [id number] 2020 Medicaid [id number] 2019 Medicare [id number] 2019 Unknown [employer] O [id number] 2019-Present [phone] [address] [place] [address] O [id number] 2019 Unknown [id number] Medicare [id number] Social History Date Type Detail Facility Start: 03-07-2012 End: 07-21-2023 Tobacco smoking status NHIS Ex-smoker [facility] End: 09-12-1989 History of tobacco use Current smoker [facility] Start: 11-30-2021 End: 08-15-2023 Alcohol intake Current non-drinker of alcohol (finding) [facility] Start: 1940 Sex Assigned At Not on file [facility] Start: 12-01-2021 End: 07-21-2022 Exposure to SARS-CoV-2 (event) Not sure [facility] End: 09-12-1989 History of tobacco use Cigarette Smoker [facility] Start: 03-07-2012 End: 07-21-2023 Tobacco use and exposure Smokeless tobacco non-user [facility] Start: 02-09-2023 History SDOH Food Worry 1 [facility] Start: 02-09-2023 History SDOH Transpo rt Med 2 [facility] Start: 01-21-2023 End: 03-08-2023 History of Social function [facility] Work Phone: Start: 01-21-2023 End: 03-08-2023 Tobacco use panel [facility] Work Phone: Adult Depression Screening Assessment 0 [facility] Work Phone: (I/We) worried wheth er (my/our) food would run out before (I/we) got money to buy more. Never true [facility] Work Phone: Goals Date Patient Goal Desired Activity /State Personal health goal Clinical Notes 03-30-2017 to 09-02-2023 Denisse Eller RN - 08/25/2023 11:04 AM Denisse Flannery RN - 08/10/2023 10:22 AM Denisse Flannery RN - 08/09/2023 1:35 PM RossiMena JENELLE - 07/21/2023 12:43 PM ESTPatient Instructions Note Date & Type Note Facility 09-02-2023 Note HNO ID: [id number] Author: Stu James APRN.CNP Service: ? Author Type: Nurse Practitioner Type: Progress Notes Filed: 09/02/2023 2:45 PM Note Text: Transitional Care Management Progress Note The patients TCM visit was performed within the 14 days of discharge. Patient's Date of discharge: 08/28/2023 Date of initial coordinator contact after discharge: 08/29/2023 Discharge diagnosis: SDH, confusion, acute delirium Medication review completed Yes Stu James APRN.COMMUNITY MANAGER Provider Documentation: In follow-up of hospitalization, George [...] 09/01/2023: Call transferred to triage nurse from mill order scheduler due to patient called to request sooner hospital f/u appointment and he is scheduled to be seen tomorrow 09/02 with Stu James BISCUIT FACTORY WORKER. Patient reports no new or worsening symptoms. [...] fall. Neighbor heard him fall and called squad, was taken to [facility] and from there to [facility]. Remembers being in the hospital-but wasn't confused-felt like he was talking slow and was a bit lightheaded. Overall did not find much during his stay and given his acceptable mental state, was discharged from [facility]. Currently today: lightheaded a bit. Decreased [...] PANEL - TSH (more content not included)... [facility] 08-30-2023 Note HNO ID: [id number] Author: Elif Andrade, RN Service: ? Author Type: Registered Nurse Type: Progress Notes Filed: 08/30/2023 10:54 AM Note Text: TRANSITIONAL CARE MANAGEMENT (TCM) COMMUNITY MONITORING PROGRAM Provider Action/FYI: Second Attempt: Second attempt to outreach patient for initial hospital discharge. No answer. Left message to return call at [phone] Message left to schedule follow up with PCP SUMMARY: Discharge Network Status: In-Network Discharge Pt discharged from [facility] on 08/28/2023. Admitted for: intracranial hemorrhage, SDH Contact made with patient: No - 2nd unsuccessful attempt - end outreach and close encounter Outreach ended Karlene ROBERTO, specialist physician Assistant Director Of Plant Operations [phone] [facility] 08-29-2023 Note HNO ID: [id number] Author: Elif Andrade, RN Service: ? Author Type: Registered Nurse Type: Progress Notes Filed: 08/30/2023 10:54 AM Note Text: TCM Home Visit Referral Source of Stratification: [facility] Admission Status: Discharged Readmission Risk [...] a voicemail to return my call at [phone]. Will attempt to outreach to patient again later today or tomorrrow if no return call from patient. SUMMARY: Discharge Network Status: In-Network Discharge Pt discharged from [facility] on 08/28/2023. Admitted for: intracranial hemorrhage, SDH Contact made with patient: No - next outreach attempt will be on next business day Outreach ended Elif Castaneda RN August 29, 2023 12:19 PM [facility] 08-29-2023 Note Patient Outreach (AM [facility]) GEORGE LEWIS ([id number]) 1940 Date Time Provider Department 08/29/23 ELIF ANDRADE AMBG During your visit today, we recorded the following information about you: Elif Andrade RN 08/30/2023 10:54 AM Signed TCM Home Visit Referral Source of Stratification: [facility] Admission Status: Discharged Readmission Risk [...] a voicemail to return my call at [phone]. Will attempt to outreach to patient again later today or tomorrrow if no return call from patient. SUMMARY: Discharge Network Status: In-Network Discharge Pt discharged from [facility] on 08/28/2023. Admitted for: intracranial hemorrhage, [...] answer. Left message to return call at [phone] Message left to schedule follow up with PCP SUMMARY: Discharge Network Status: In-Network Discharge Pt discharged from [facility] on 08/28/2023. Admitted for: intracranial hemorrhage, SDH Contact made with patient: No - 2nd unsuccessful attempt - end outreach and close encounter Outreach ended Karlene ROBERTO, specialist physician Assistant Director Of Plant Operations [phone] Allergies As of Date: 08/29/2023 Noted Allergy [...] [J4*08/19/2007 BENIGN NEOPLASM (more content not included)... [facility] 08-29-2023 Note Patient Outreach (AM [facility]) YESIGEORGE ([id number]) 1940 M Date Time Provider Department 08/29/23 RAFITADENISSE During your visit today, we recorded the [...] [E66.9] 03/30/2017 10/20/2018 Coronary artery disease involving marshall lau*10/18/2017 Obesity, Class I, BMI 30-34.9 [E66.9] [...] pain [M79.661, M79.662] 04/27/2023 SDH (subdural hematoma) (HCC) [S06.5XAA] 08/27/2023 Confusion [R41.0] 08/27/2023 Obesity, Class II, BMI 35-39.9 [E66.9] 08/28/2023 (more content not included)... [facility] 08-25-2023 Note Patient Outreach (AM [facility]) GEORGE LEWIS ([id number]) 1940 M Date Time Provider Department 08/25/23 DENISSE ELLER During your visit today, we recorded the following information about you: Denisse Eller RN 08/25/2023 11:07 AM Signed [facility] Telephonic Outreach Provider Action/FYI [...] [E66.9] 03/30/2017 10/20/2018 Coronary artery disease involving marshall lau*10/18/2017 Obesity, Class I, BMI 30-34.9 [E66.9] [...] persistent asthma, u (more content not included)... [facility] 08-25-2023 Note HNO ID: [id number] Author: Denisse Eller RN Service: ? Author Type: Registered Nurse Type: Progress Notes Filed: 08/25/2023 11:07 AM Note Text: [facility] Telephonic Outreach Provider Action/FYI Contacted for: Routine Telephonic Outreach Contact made with patient: No, left message. Denisse Eller RN August 25, 2023 11:07 AM [facility] 08-25-2023 History of Present illness Narrative [facility] Telephonic Outreach Provider Action/FYI Contacted for: Routine Telephonic Outreach Contact made with patient: No, left message. Denisse Eller RN August 25, 2023 11:07 AM documented in this encounter [facility] 08-15-2023 Note HNO ID: [id number] Author: Crow Damian MD Service: ? Author Type: Physician Type: Progress Notes Filed: 09/13/2023 9:13 AM Note Text: Crow Damian MD Department of Orthopaedics Orth[facility] [address] [address] Dept: [phone] Dept August 15, 2023 CHIEF COMPLAINT: Follow Up and Knee Pain of the Left Knee, Follow Up and Knee Pain of the Right Knee, and 17 weeks post visit with [facility] OA bilateral knees (with injections given - wants injections.) HPI Patient states injections have helped until recently. He is having some discomfort in his knees today. He normally sleeps with a pillow between his knees and did not do that last night. Patient would like cortisone injections today. Taking no med's for the pain. ASSESSMENT: M17.0 Primary osteoarthritis of both knees (primary encounter diagnosis) M25.561, M25.562, G89.29 Chronic pain of both knees PLAN: repeat injections Mr. George Lewis was advised as to contrast therapies and/or to take analgesics/anti-inflammatories as needed and all contraindications were reviewed. OBJECTIVE: Mr. George Lewis is a pleasant 82 year old in no apparent distress. Gen:There were no vitals taken for this visit. nl development, non obese, no deformities ENT: Normocephalic, normal hearing, moist mucosa CV: Pulses:DP/PT= 2+ and symmetric, capillary refill < 2 secs, no peripheral edema/varicosities Skin: no rash, bruising or lesions. Good turgor. Psych: cooperative and appropriate, alert and oriented x 3, good mood and affect. Musculoskeletal: Stable knee exam. Large Joint Arthro/Inj: bilateral knee joints Informed Consent Consent Obtained: Verbal Keller Protocol A moment to CARE was completed. SIGN IN Personnel directly involved with the procedure wore [...] assessment and interventions applicable. No implant(s) inserted. 08/15/2023 10:05 AM The procedure site was prepped in the usual sterile fashion. Site: bilateral knee joints Medications (Right): 40 mg triamcinolone acetonide 40 mg/mL Medications (Left): 40 mg triamcinolone acetonide 40 mg/mL Anesthetics (Right): 4 mL lidocaine (PF) 10 mg/mL (1 %) Anesthetics (Left): 4 mL lidocaine (PF) 10 mg/mL (1 %) Outcome: Tolerated well, no immediate complications Post-injection instructions were reviewed with the patient and the patient voiced understanding of these instructions. SIGN OUT All instruments, equipment, possible retained foreign bodies accounted for. Supporting Subjective Information Below: Past Surgical History: PAST SURGICAL HISTORY Procedure Laterality Date COLONOSCOPY FLX DX W/COLLJ SPEC WHEN PFRMD 02/07/2014 Colonoscopy COLONOSCOPY FLX DX W/COLLJ SPEC WHEN PFRMD 03/07/2019 Colonoscopy COLONOSCOPY W/BIOPSY SINGLE/MULTIPLE 02/01/08 HEMORRHOIDECTOMY XTRNL 2/> COLUMN/GROUP 1989 hemorrhoidectomy PAST SURGICAL HISTORY OF 1999 CABG x 3, [facility], Dr. Murray PAST SURGICAL HISTORY OF 1980 Bilateral shoulder surgery post trauma Medications: Current Outpatient Medications Medication Sig albuterol HFA (PROVENTIL HFA, VENTOLIN HFA) 90 mcg/actuation inhaler Inhale 2 Puffs as instructed every 4 hours as needed for wheezing/shortness of breath. fluticasone (FLONASE) 50 mcg/actuation nasal spray Use 2 Sprays in each nostril once daily. Rinse mouth after use. meclizine (ANTIVERT) 25 mg tab Take 1 [...] mouth once daily. cetirizine (ZYRTEC) 10 mg t (more content not included)... [facility] 08-10-2023 Note HNO ID: [id number] Author: Denisse Eller RN Service: ? Author Type: Registered Nurse Type: Progress Notes Filed: 08/10/2023 10:23 AM Note Text: [facility] Telephonic Outreach Provider Action/FYI Contacted for: Routine Telephonic Outreach Contact made with patient: No, left message. Denisse Eller RN August 10, 2023 10:23 AM [facility] 08-10-2023 History of Present illness Narrative [facility] Telephonic Outreach Provider Action/FYI Contacted for: Routine Telephonic Outreach Contact made with patient: No, left message. Denisse Eller RN August 10, 2023 10:23 AM [facility] Telephonic Outreach Provider Action/FYI Contacted for: Routine Telephonic Outreach Contact made with patient: No, left message. Denisse Eller RN August 09, 2023 1:37 PM documented in this encounter [facility] 08-09-2023 Note HNO ID: [id number] Author: Denisse Eller RN Service: ? Author Type: Registered Nurse Type: Progress Notes Filed: 08/10/2023 10:23 AM Note Text: [facility] Telephonic Outreach Provider Action/FYI Contacted for: Routine Telephonic Outreach Contact made with patient: No, left message. Denisse Eller RN August 09, 2023 1:37 PM [facility] 08-09-2023 Note Patient Outreach (AM [facility]) GEORGE LEWIS ([id number]) 1940 Date Time Provider Department 08/09/23 DENISSE ELLER [facility] During your visit today, we recorded the following information about you: Denisse Eller RN 08/10/2023 10:23 AM Signed [facility] Telephonic Outreach Provider Action/FYI Contacted for: Routine Telephonic Outreach Contact made with patient: No, left message. Denisse Eller RN August 09, 2023 1:37 PM Denisse Eller RN 08/10/2023 10:23 AM Signed [facility] Telephonic Outreach Provider Action/FYI [...] [E66.9] 03/30/2017 10/20/2018 Coronary artery disease involving marshall lau*10/18/2017 Obesity, Class I, BMI 30-34.9 [E66.9] [...] neurogenic claudication [M*04/09/2021 (more content not included)... [facility] 07-21-2023 Note HNO ID: [id number] Author: Aurelia Trevino MD Service: ? Author Type: Physician Type: Progress Notes Filed: 07/21/2023 3:47 PM Note Text: . [address] Note Patient name: George Lewis PCP: Husam Deras DO Referring Physician: Jocelin Henry, COMMUNITY MANAGER Consultation requested by Jocelin Henry for an opinion regarding SOB. My [...] Finger 30 3 Wheel Walker None NAME: Stacia BrendaGWEN hartman PATIENT NAME: George Lewis DATE: July 21, 2023 TIME: 10:51 AM PFT: Spirometry shows mild obstruction with improvement in small airways obstruction post bronchodilator PFT 02/2022: Spirometry shows moderate obstruction with marked improvement post bronchodilator Labs: Component Ref Range AND Units 2 mo ago NT Pro BNP <450 pg/mL 335 Last CBC was normal. No anemia or polycythemia Imaging / Diagnostic Studies: CXR [facility] 07/2023: I personally reviewed the images which [...] Coronary atherosclerosis of unspecified type of vessel, marshall or graft 09/12/1999 s/p CABG 1999, first [...] days a week (more content not included)... [facility] 07-21-2023 Note HNO ID: [id number] Author: Stacia Davison RPFT Service: ? Author [...] July 21, 2023 TIME: 10:51 AM Comment: [facility] 07-21-2023 Nurse Note Intake information documented in the prior visit with GWEN Boswell today. documented in this encounter [facility] 07-21-2023 Note HNO ID: [id number] Author: Stacia Davison RPFT Service: ? Author Type: Respiratory Therapist Type: Progress Notes Filed: 07/21/2023 10:52 AM Note Text: PULM FUNCTION SMARTBLOCK: Provider: Jocelin Henry APRN.COMMUNITY MANAGER Assisting Tech: Stacia Davison RPFT Spirometry: 1 Oximetry - Ambulation: 1 [facility] 07-21-2023 History of Present illness Narrative Images from the original note were not included. . [address] Note Patient name: George Lewis PCP: Husam Deras DO Referring Physician: Jocelin Henry CNP Consultation requested by Jocelin Henry for an opinion regarding SOB. My [...] no issues with SOB and walks around [facility] without difficulty. Denies wheezing, sputum production. 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 Author Type: Nurse Practitioner Type: Progress Notes Filed: 07/20/2023 3:37 PM Note Text: 07/20/2023 Patient presents with: Shortness of Breath: X4 days. Seen in ED yesterday at [facility] SUBJECTIVE: This is a 82 year old that is here today for Above Complaints. HOSPITAL/ER FOLLOW UP: Reason for visit: shortness of breath Which facility: [facility] Date of visit: 07/20/2023 Diagnosis: ? Testing [...] Coronary atherosclerosis of unspecified type of vessel, marshall or graft 09/12/1999 s/p CABG 1999, first [...] Assessment Completed Pneu (more content not included)... [facility] 07-20-2023 Instructions Jocelin Henry APRN.CNP - 07/20/2023 3:16 PM EST If you develop increasing shortness of breath, difficulty breathing, or chest pain go to ER documented in this encounter [facility] 07-20-2023 History of Present illness Narrative 07/20/2023 Patient presents with: Shortness of Breath: X4 days. Seen in ED yesterday at [facility] SUBJECTIVE: This is a 82 year old that is here today for Above Complaints. HOSPITAL/ER FOLLOW UP: Reason for visit: shortness of breath Which facility: [facility] Date of visit: 07/20/2023 Diagnosis: ? Testing [...] Coronary atherosclerosis of unspecified type of vessel, marshall or graft 09/12/1999 s/p CABG 1999, first [...] which included preparing to see the patient, [id number] patient care, completing clinical documentation, obtaining and/or reviewing separately obtained history, performing a medically appropriate examination, counseling and educating the patient/family/caregiver, and ordering medications, tests, or procedures. documented in this encounter [facility] 07-19-2023 Note HNO ID: [id number] Author: Zachary Jack APRN.RAFAEL Service: ? Author Type: Nurse Practitioner [...] patient declined transport. Will be seen at [facility]. Zachary Jack APRN.CNP [facility] 07-19-2023 History of Present illness [...] patient declined transport. Will be seen at [facility]. Zachary Jack APRN.RAFAEL documented in this encounter [facility] 07-12-2023 Note HNO ID: [id number] Author: Denisse Eller RN Service: ? Author Type: Registered Nurse Type: Progress Notes Filed: 07/12/2023 4:18 PM Note Text: [facility] Telephonic Outreach Provider Action/FYI Contacted for: Routine Telephonic Outreach Contact made with patient: No, left message. Denisse Eller RN July 12, 2023 4:16 PM [facility] 07-12-2023 Note Patient Outreach (AM [facility]) GEORGE LEWIS ([id number]) 1940 M Date Time Provider Department 07/12/23 DENISSE ELLER [facility] During your visit today, we recorded the following information about you: Denisse Eller RN 07/12/2023 4:18 PM Signed [facility] Telephonic Outreach Provider Vilma/JUDY Contacted for: Routine Telephonic Outreach Contact made [...] [E66.9] 03/30/2017 10/20/2018 Coronary artery disease involving marshall lau*10/18/2017 Obesity, Class I, BMI 30-34.9 [E66.9] [...] [M79.661, M79.662] 04/12 (more content not included)... [facility] 06-29-2023 Note HNO ID: [id number] Author: Denisse Eller RN Service: ? Author Type: Registered Nurse Type: Progress Notes Filed: 06/29/2023 10:29 AM Note Text: [facility] Telephonic Outreach Provider Action/FYI Contacted for: Routine Telephonic Outreach Contact made with patient: No, left message. Denisse Eller RN June 29, 2023 10:27 AM [facility] 06-29-2023 History of Present illness Narrative [facility] Telephonic Outreach Provider Action/FYI Contacted for: Routine Telephonic Outreach Contact made with patient: No, left message. Denisse Eller RN June 29, 2023 10:27 AM [facility] Telephonic Outreach Provider Action/FYI Contacted for: Routine Telephonic Outreach Contact made with patient: No, left message. Denisse Eller RN June 28, 2023 2:17 PM documented in this encounter [facility] 06-28-2023 Note HNO ID: [id number] Author: Denisse Eller RN Service: ? Author Type: Registered Nurse Type: Progress Notes Filed: 06/29/2023 10:29 AM Note Text: [facility] Telephonic Outreach Provider Action/FYI Contacted for: Routine Telephonic Outreach Contact made with patient: No, left message. Denisse Eller RN June 28, 2023 2:17 PM [facility] 06-28-2023 Note Patient Outreach (AM [facility]) GEORGE LEWIS ([id number]) 1940 M Date Time Provider Department 06/28/23 DENISSE ELLER [facility] During your visit today, we recorded the following information about you: Denisse Eller RN 06/29/2023 10:[address] [facility] Telephonic Outreach Provider Action/FYI Contacted for: Routine Telephonic Outreach Contact made with patient: No, left message. Denisse Eller RN June 28, 2023 2:17 PM Denisse Eller RN 06/29/2023 10:29 AM Signed CD Telephonic Outreach Provider Vilma/FYKenney Contacted for: Routine Telephonic Outreach Contact made [...] [E66.9] 03/30/2017 10/20/2018 Coronary artery disease involving marshall lau*10/18/2017 Obesity, Class I, BMI 30-34.9 [E66.9] [...] [J45.*04/14/2022 Restrictive a (more content not included)... [facility] 05-31-2023 Note Patient Outreach (AM [facility]) GEORGE LEWIS ([id number]) 1940 M Date Time Provider Department 05/31/23 DENISSE ELLER During your visit today, we [...] more often than normal? No Based on acquisition lead, the following disposition is advised: No symptoms [...] [E66.9] 03/30/2017 10/20/2018 Coronary artery disease involving marshall lau*10/18/2017 Obesity, Class I, BMI 30-34.9 [E66.9] 10/18/2017 Dizziness [R42] 12/19/2017 Elevated fasting glucose [R73.01] 12/19/2017 Allergic rhinitis due to allergen [J30.9] 12/19/2017 PAD (peripheral artery disease) (HCC) [I73.9] 03/16/2019 Pure hypercholesterolemia [E78.00] 04/20/2019 10/25/2022 Chronic pain of both knees [M25.561, M25.562, G*04/20/2019 Pain of right lower extremity [M79.604] 10/23/2019 Benign nodular prostatic hyperpl (more content not included)... [facility] 05-31-2023 Note HNO ID: [id number] Author: Denisse Eller RN Service: ? Author Type: Registered Nurse Type: Progress Notes Filed: 05/31/2023 9:24 AM Note Text: [facility] Telephonic Outreach Provider Action/FYI Contacted for: Routine [...] more often than normal? No Based on acquisition lead, the following disposition is advised: No symptoms or symptoms present, not severe. Routed to: No Action Needed NEISHA Education Provided this Outreach: No Denisse Eller RN May 31, 2023 9:23 AM [facility] 05-31-2023 History of Present illness Narrative [facility] Telephonic Outreach Provider Action/FYI Contacted for: Routine [...] more often than normal? No Based on acquisition lead, the following disposition is advised: No symptoms or symptoms present, not severe. Routed to: No Action Needed NEISHA Education Provided this Outreach: No Denisse Eller RN May 31, 2023 9:23 AM documented in this encounter [facility] 05-03-2023 Note Patient Outreach (AM [facility]) GEORGE LEWIS ([id number]) 1940 M Date Time Provider Department 05/03/23 DENISSE ELLER [facility] During your visit today, we recorded the following information about you: Denisse Eller RN 05/03/2023 9:[address] [facility] Telephonic Outreach Provider Action/ Copd; pain remains to feet since six [...] more often than normal? No Based on acquisition lead, the following disposition is advised: No symptoms [...] [E66.9] 03/30/2017 10/20/2018 Coronary artery disease involving marshall lau*10/18/2017 Obesity, Class I, BMI 30-34.9 [E66.9] 10/18/2017 Dizziness [R42] 12/19/2017 Elevated fasting glucose [R73.01] 12/19/2017 Allergic rhinitis due to allergen [J30.9] 12/19/2017 PAD (peripheral artery disease) (HCC) [I73.9] 03/16/2019 Pure hypercholesterolemia [E78.00] 04/20/2019 10/25/2022 Chronic pain o (more content not included)... [facility] 05-03-2023 Note HNO ID: [id number] Author: Denisse Eller, KEYA Service: ? Author Type: Registered Nurse Type: Progress Notes Filed: 05/03/2023 9:36 AM Note Text: [facility] Telephonic Outreach Provider Vilma/JUDY Copd; pain remains to feet since six [...] more often than normal? No Based on acquisition lead, the following disposition is advised: No symptoms or symptoms present, not severe. Routed to: No Action Needed NEISHA Education Provided this Outreach: No Denisse Eller RN May 03, 2023 9:35 AM [facility] 05-03-2023 History of Present illness Narrative [facility] Telephonic Outreach Provider Vilma/JUDY Copd; pain remains to feet since six [...] more often than normal? No Based on acquisition lead, the following disposition is advised: No symptoms or symptoms present, not severe. Routed to: No Action Needed NEISHA Education Provided this Outreach: No Denisse Eller RN May 03, 2023 9:35 AM documented in this encounter [facility] 04-27-2023 Note HNO ID: [id number] Author: Husam Deras, DO Service: ? Author Type: Physician Type: Progress Notes Filed: 04/27/2023 1:00 PM Note Text: CC: George Lewis is a 82 year old male who presents to the office for follow up HPI: Diagnosed with PAD, has carotid artery atherosclerosis, has seen vascular specialist Dr. Machuca [facility] and has seen Dr. Bueno Associate Relations Specialist. Struggling with walking due to b/l below [...] Coronary atherosclerosis of unspecified type of vessel, marshall or graft 09/12/1999 s/p CABG 1999, first [...] murmurs, no gallops (more content not included)... [facility] 04-27-2023 History of Present illness Narrative CC: George Lewis is a 82 year old male who presents to the office for follow up HPI: Diagnosed with PAD, has carotid artery atherosclerosis, has seen vascular specialist Dr. Machuca Vascular and has seen Dr. Bueno Associate Relations Specialist. Struggling with walking due to b/l below [...] Coronary atherosclerosis of unspecified type of vessel, marshall or graft 09/12/1999 s/p CABG 1999, first [...] plan. See patient instructions. Husam Deras DO [address] [place] [address] documented in this encounter [facility] 04-27-2023 Instructions Husam Deras DO - 04/27/2023 [...] milks (soy, almond) Yogurt Cashews, almonds Chicken Cheyenne documented in this encounter [facility] 04-26-2023 Note HNO ID: [id number] Author: Gideon Bueno DO Service: ? Author Type: Physician Type: Progress Notes Filed: 04/26/2023 9:30 AM Note Text: [facility] SECTION OF [facility] CARDIOLOGY [facility] OUTPATIENT VISIT DATE April 26, 2023 PRIMARY CARE PHYSICIAN: Husam Deras [address] [place] [address] HISTORY OF PRESENT ILLNESS: Mr. Lewis is a 82 year old male. 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 [facility] 04-26-2023 History of Present illness Narrative Images from the original note were not included. [facility] OUTPATIENT VISIT DATE April 26, 2023 PRIMARY CARE PHYSICIAN: Husam Deras [address] [place] [address] HISTORY OF PRESENT ILLNESS: Mr. Lewis is a 82 year old male. 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 by recent [...] Coronary atherosclerosis of unspecified type of vessel, marshall or graft 09/12/1999 s/p CABG 1999, first [...] unsure) Coronary Artery Disease Father of presumed [place]; heavy drinker Alcohol/Drug Father Prostate Cancer Other [...] 36 g^Rfl: 3 Gideon Bueno DO, FACC, FAC Junior Programmer Analyst, [facility] Junior Programmer Analyst, [facility]iac Rehabilitation Junior Programmer Analyst, [facility] Junior Programmer Analyst, [facility] Junior Programmer Analyst, [facility] Clinical Cash Accountant Profressor of Medicine, [facility] - [facility] Staff Associate Relations Specialist, Bruce Black Department of Cardiovascular Medicine/Heart and Vascular [address], [facility] Please note: This note has been produced using speech recognition software and may contain errors related to that system including jessica, punctuation, spelling, words, gender and phrases that may be inappropriate. documented in this encounter [facility] 04-18-2023 Note HNO ID: [id number] Author: Seble Peralta PA-C Service: ? Author Type: Physician Cash Accountant Type: Progress Notes Filed: 04/19/2023 4:18 PM Note Text: Seble Peralta PA-C Department of Orthopaedics Orthopaedics [address] [facility] [address] Dept: [phone] Dept April 18, 2023 CHIEF COMPLAINT: Established [...] knee joints Informed Consent Consent Obtained: Verbal Keller Protocol A moment to CARE was completed. [...] compartment of the (more content not included)... [facility] 04-18-2023 Note HNO ID: [id number] Author: Noris Dietz Service: ? Author Type: [...] Months Frequency: Continuous Intervention/Comfort measure: Medication Comments: rosanna santos [facility] 04-18-2023 Note HNO ID: [id number] Author: Tolu Donaldson RT(R) Service: ? Author [...] RT Noemi(R) April 18, 2023 8:40 AM [facility] 04-18-2023 History of Present illness Narrative Associated Order(s): Large Joint Arthro/Inj: bilateral knee joints Post-Procedure Diagnose(s): Primary osteoarthritis of both knees; Chronic pain of both knees; Chondrocalcinosis of knee, unspecified laterality Seble Peralta PA-C Department of Orthopaedics Orthopaedics [address] [facility] [address] Dept: [phone] Dept April 18, 2023 CHIEF COMPLAINT: Established [...] knee joints Informed Consent Consent Obtained: Verbal Keller Protocol A moment to CARE was completed. [...] acute fracture. Degenerative disease of bilateral knees. Production Hardener: KI Transcribe Date/Time: Apr 19 2023 4:11P Dictated [...] [Atorvastatin] This note was partially generated using [employer] voice recognition system, and there may be some incorrect words, spellings, and punctuation that were not noted in checking the note before saving. Seble Peralta PA-C Patient presents with: Left Knee - [...] Comments: voltaren gel documented in this encounter [facility] 04-11-2023 Miscellaneous Notes Patient notified and verbalized understanding Yashira Galvez Cma Please let patient know his echo is stable. documented in this encounter [facility] 04-11-2023 Note HNO ID: [id number] Author: Delia Chu RN Service: ? Author [...] and dressing applied. Patient discharged ambulatory with Converting Supervisor. Delia Chu RN [facility] 04-11-2023 History of Present illness Narrative 24 ga angio started to right AC. Good blood return. Flushed easily with NSS. Dressing applied. Definity (Lot # [id number] exp 01/11/24 ) mixed per protocol. 2 cc administered throughout procedure. 8 cc discarded. Pt tolerated procedure well. No C/o's, Hep lock D/c'd and dressing applied. Patient discharged ambulatory with Converting Supervisor. Delia Chu RN documented in this encounter [facility] 04-05-2023 Note HNO ID: [id number] Author: Denisse Eller RN Service: ? Author [...] more often than normal? No Based on acquisition lead, the following disposition is advised: No symptoms or symptoms present, not severe. Routed to: No Action Needed NEISHA Education Provided this Outreach: No Denisse Eller RN April 05, 2023 12:05 PM [facility] 04-05-2023 Note Patient Outreach ([facility]) GEORGE LEWIS ([id number]) 1940 M Date Time Provider Department 04/05/23 DENISSE ELLER [facility] During your visit today, we recorded the following information about you: Denisse Eller RN 04/05/2023 12:06 PM Signed CDM Telephonic Outreach Provider Vilma/I Same foot issues remain. Appt for pain [...] more often than normal? No Based on acquisition lead, the following disposition is advised: No symptoms [...] [E66.9] 03/30/2017 10/20/2018 Coronary artery disease involving marshall lau*10/18/2017 Obesity, Class I, BMI 30-34.9 [E66.9] 10/18/2017 Dizziness [R42] 12/19/2017 Elevated fasting glucose [R73.01] 12/19/2017 Allergic rhinitis due to allergen [J30.9] 12/19/2017 PAD (peripheral artery disease) ([facility]) [I73.9 (more content not included)... [facility] 03-31-2023 Note HNO ID: [id number] Author: Harvinder Verde APRN.COMMUNITY MANAGER Service: ? Author Type: Nurse Practitioner Type: [...] Coronary atherosclerosis of unspecified type of vessel, marshall or graft 09/12/1999 s/p CABG 1999, first [...] unsure) Coronary Artery Disease Father of presumed [place]; heavy drinker Alcohol/Drug Father Prostate Cancer Other [...] INFLUENZA(1) due on (more content not included)... [facility] 03-25-2023 Miscellaneous Notes Patient notified [...] Annie Inman RN documented in this encounter [facility] 03-21-2023 Miscellaneous Notes TC to patient who verbalized understanding of providers message. Patient wants provider to know that the medication she prescribed at 03/18/23 OV helped the swelling and he lost 6 lbs total. No longer having issues with swelling of his legs and ankles. ARMIDA Sparks Please let patient know his labs are stable documented in this encounter [facility] 03-18-2023 Note HNO ID: [id number] Author: Harvinder Verde APRN.RAFAEL Service: ? Author Type: Nurse Practitioner Type: Progress Notes Filed: 03/18/2023 10:29 AM Note Text: Chief Complaint Patient presents with: Edema: Swelling- both legs MEMO Lewis is a 82 year old [...] Coronary atherosclerosis of unspecified type of vessel, marshall or graft 09/12/1999 s/p CABG 1999, first [...] unsure) Coronary Artery Disease Father of presumed [place]; heavy drinker Alcohol/Drug Father Prostate Cancer Other [...] 3) due o (more content not included)... [facility] 03-18-2023 Note HNO ID: [id number] Author: Salome Nicole, DO Service: ? Author Type: Physician Type: Progress Notes Filed: 03/18/2023 9:02 AM Note Text: Virtualist Progress Note Triage Call I have communicated my name and active licensure. The patient's identity and physical location were verified at the time of this visit. Either the patient or their legal bottling equipment sales representative has been informed of the risks and benefits of -- and alternatives to -- treatment through a remote evaluation and consents to proceed with the evaluation remotely. Triage source: [facility] Was patient downgraded (i.e. disposition other than [...] in as Primary Virtualist, Secondary Virtualist, or [facility] Telehealth provider: Secondary [facility] 03-18-2023 Instructions Harvinder Verde APRN.CNP - 03/18/2023 10:29 AM EDT Complete lab work Schedule echo documented in this encounter [facility] 03-18-2023 History of Present illness Narrative Chief Complaint Patient presents with: Edema: Swelling- both legs MEMO Lewis is a 82 year old [...] Coronary atherosclerosis of unspecified type of vessel, marshall or graft 09/12/1999 s/p CABG 1999, first [...] unsure) Coronary Artery Disease Father of presumed [place]; heavy drinker Alcohol/Drug Father Prostate Cancer Other [...] 0.9 % (FLUSH) INJECTION SYRINGE Harvinder Verde APRN.COMMUNITY MANAGER documented in this encounter [facility] 03-18-2023 History of Present illness Narrative Virtualist Progress Note Triage Call I have communicated my name and active licensure. The patient's identity and physical location were verified at the time of this visit. Either the patient or their legal bottling equipment sales representative has been informed of the risks and benefits of -- and alternatives to -- treatment through a remote evaluation and consents to proceed with the evaluation remotely. Triage source: [facility] Was patient downgraded (i.e. disposition other than go to the ED was advised)? Yes Mode of contact: Audio only, NOC History/Physical Exam: New bilateral LE edema. No chest pain or SOB Nurse Triage Disposition (If call is from Home Care, [facility] Home Care nurse triage, or an [facility] Care, the disposition is Go to ED Now ): H@H 24 hour recommendation Virtualist Recommended Disposition: See Provider within 24 hours Signed in as Primary Virtualist, Secondary Virtualist, or [facility] Telehealth provider: Secondary documented in this encounter [facility] 03-18-2023 Miscellaneous Notes HE[facility] AT HOME OUTREACH HE[facility] HOME OUTREACH Provider Action/FYI: Patient calling to request his order a water pill for him for swelling of the lower extremities Rubenlo, you've reached [facility], my name is Trini [...] Outcome: Conferenced to Jose M in [facility] to schedule an appointment with the [...] last month Protocols used: Leg Swelling and [id number] documented in this encounter [facility] 03-08-2023 Note HNO ID: [id number] Author: Mena Machuca DO Service: ? Author Type: Physician Type: Progress Notes Filed: 03/08/2023 4:51 PM Note Text: This office note has been dictated. Mena Machuca DO [facility] 03-08-2023 History of Present illness Narrative This office note has been dictated. Mena Machuca DO documented in this encounter [facility] 03-08-2023 Note HNO ID: [id number] Author: Mena Machuca DO Service: Vascular Surgery Author Type: Physician Type: Progress Notes Filed: 03/14/2023 8:58 AM Note Text: NAME: GEORGE LEWIS [facility] NO: [id number] DATE OF SERVICE: 03/08/2023 Subjective: George is [...] will touch base with this PCP and forging machine hand regarding his weight gain, as he finds it difficult to use the phone system. He will call me and follow up sooner with any new concerns. Mena Machuca D.O. KB/089 Audio #: [id number] Date Dictated: 03/08/2023 12:23:40 Date Typed: 03/11/2023 05:02:57 Date Revised: [facility] 03-08-2023 Note Patient Outreach (AM [facility]) GEORGE LEWIS ([id number]) 1940 M Date Time Provider Department 03/08/23 DENISSE ELLER During your visit today, we recorded the following information about you: Denisse Eller RN 03/08/2023 9:55 AM Signed CDM Telephonic Outreach Provider Action/MARKYI Copd; burning and tingling remainin his legs and feet. He has seen a spine doctor and plans to go to a building energy retrofit technician. Contacted for: Routine Telephonic Outreach Contact made [...] more often than normal? No Based on acquisition lead, the following disposition is advised: No symptoms or symptoms present, not severe. Routed to: No Action Needed NEISHA Education Provided this Outreach: No Denisse Eller RN March 08, 2023 9:54 AM Allergies As of Date: 03/08/2023 Noted Allergy Reaction LIPITOR (ATORVASTATIN) 08/16/2007 5 - Intolerance Comments: Severe leg cramps, stopped Date Reviewed: 01/05/2023 Reviewed by: Stu James APRN.COMMUNITY MANAGER - Fully Assessed Prescriptions as of 03/08/2023 [...] [E66.9] 03/30/2017 10/20/2018 Coronary artery disease involving marshall lau*10/18/2017 Obesity, Class I, BMI 30-34.9 [E66.9] 10/18/2017 Dizziness [R42] 12/19/2017 Elevated fasting glucose [R73.01] 12/19/2017 Allergic rhinitis due to allergen [J30.9] 12/19/2017 PAD (peripheral artery disease) ([facility]) [I73.9] 03/16/2019 Pure hypercholesterolemia [E78.00] 04/20/2019 10/25/2022 Chronic pain of both knees [M25.561, M25.562, G*04/20/2019 Pain of right lower extremity [M79.604] 10/23/2019 Ghazal (more content not included)... [facility] 03-08-2023 Note HNO ID: [id number] Author: Denisse Eller RN Service: ? Author Type: Registered Nurse Type: Progress Notes Filed: 03/08/2023 9:55 AM Note Text: [facility] Telephonic Outreach Provider Vilma/JUDY Copd; burning and tingling remainin his legs and feet. He has seen a spine doctor and plans to go to a building energy retrofit technician. Contacted for: Routine Telephonic Outreach Contact made [...] more often than normal? No Based on acquisition lead, the following disposition is advised: No symptoms or symptoms present, not severe. Routed to: No Action Needed NEISHA Education Provided this Outreach: No Denisse Eller RN March 08, 2023 9:54 AM [facility] 03-08-2023 History of Present illness Narrative [facility] Telephonic Outreach Provider Vilma/JUDY Copd; burning and tingling remainin his legs and feet. He has seen a spine doctor and plans to go to a building energy retrofit technician. Contacted for: Routine Telephonic Outreach Contact made [...] more often than normal? No Based on acquisition lead, the following disposition is advised: No symptoms or symptoms present, not severe. Routed to: No Action Needed NEISHA Education Provided this Outreach: No Denisse Eller RN March 08, 2023 9:54 AM documented in this encounter [facility] 02-25-2023 Miscellaneous Notes Opened in error documented in this encounter [facility] 02-09-2023 Note Patient Outreach (AM [facility]) GEORGE LEWIS ([id number]) 1940 M Date Time Provider Department 02/09/23 HUMBERTO WANG During your visit today, we recorded the following information about you: Humberto Wang RN 02/09/2023 2:05 PM Signed CD Telephonic Outreach Provider Action/ TO attempt Spoke with patient who reports that hse is feeling well except for burning and tingling in his legs and feet. He has seen a spine doctor and plans to go to a building energy retrofit technician. He is able to walk but only short distances. No falls. No transportation or food insecurity needs found from asking [facility] questions. Goals entered and ADL and fall [...] more often than normal? No Based on acquisition lead, the following disposition is advised: No symptoms or symptoms present, not severe. Routed to: No Action Needed NEISHA Education Provided this Outreach: No Humberto Wang RN February 09, 2023 2:05 PM Allergies As of Date: 02/09/2023 Noted Allergy Reaction LIPITOR (ATORVASTATIN) 08/16/2007 5 - Intolerance Comments: Severe leg cramps, stopped Date Reviewed: 01/05/2023 Reviewed by: Stu James APRN.COMMUNITY MANAGER - Fully Assessed Reason for Visit: CDM [...] [E66.9] 03/30/2017 10/20/2018 Coronary artery disease involving marshall lau*10/18/2017 Obesity, Class I, BMI 30-34.9 [E66.9] 10/18/2017 Dizzines (more content not included)... [facility] 02-09-2023 Note HNO ID: [id number] Author: Humberto Wang RN Service: ? Author Type: Registered Nurse Type: Progress Notes Filed: 02/09/2023 2:05 PM Note Text: CDM Telephonic Outreach Provider Action/FYI 2nd TO attempt Spoke with patient who reports that hse is feeling well except for burning and tingling in his legs and feet. He has seen a spine doctor and plans to go to a building energy retrofit technician. He is able to walk but only short distances. No falls. No transportation or food insecurity needs found from asking [facility] questions. Goals entered and ADL and fall [...] more often than normal? No Based on acquisition lead, the following disposition is advised: No symptoms or symptoms present, not severe. Routed to: No Action Needed NEISHA Education Provided this Outreach: No Humberto Wang RN February 09, 2023 2:05 PM [facility] 02-09-2023 History of Present illness Narrative [facility] Telephonic Outreach Provider Vilma/JUDY 2nd TO attempt Spoke with patient who reports that hse is feeling well except for burning and tingling in his legs and feet. He has seen a spine doctor and plans to go to a building energy retrofit technician. He is able to walk but only short distances. No falls. No transportation or food insecurity needs found from asking [facility] questions. Goals entered and ADL and fall [...] more often than normal? No Based on acquisition lead, the following disposition is advised: No symptoms or symptoms present, not severe. Routed to: No Action Needed NEISHA Education Provided this Outreach: No Humberto Wang RN February 09, 2023 2:05 PM documented in this encounter [facility] 02-08-2023 Note Patient Outreach (AM [facility]) GEORGE LEWIS ([id number]) 1940 M Date Time Provider Department 02/08/23 HUMBERTO WANG During your visit today, we recorded the following information about you: Humberto Wang RN 02/08/2023 1:14 PM Signed CDM Telephonic Outreach Provider Action/FYI Left VM Asthma H@H Appointments for Next 60 Days Date Time Provider Location Dept Phone 03/08/2023 2:30 PM MENA MACHUCA [facility] [phone] Contacted for: Routine Telephonic Outreach Contact made with patient: No, left message. Humberto Wang RN February 08, 2023 1:14 PM Allergies As of Date: 02/08/2023 Noted Allergy Reaction LIPITOR (ATORVASTATIN) 08/16/2007 5 - Intolerance Comments: Severe leg cramps, stopped Date Reviewed: 01/05/2023 Reviewed by: Stu James APRN.COMMUNITY MANAGER - Fully Assessed Reason for Visit: CDM [...] [E66.9] 03/30/2017 10/20/2018 Coronary artery disease involving marshall lau*10/18/2017 Obesity, Class I, BMI 30-34.9 [E66.9] 10/18/2017 Dizziness [R42] 12/19/2017 Elevated fasting glucose [R73.01] 12/19/2017 Allergic rhinitis due to allergen [J30.9] 12/19/2017 PAD (peripheral artery disease) ([facility]) [I73.9] 03/16/2019 Pure hypercholesterolemia [E78.00] 04/20/2019 10/25/2022 [...] idiopathic peripheral neuropathy* (more content not included)... [facility] 02-08-2023 Note HNO ID: [id number] Author: Humberto Wang RN Service: ? Author Type: Registered Nurse Type: Progress Notes Filed: 02/08/2023 1:14 PM Note Text: CDM Telephonic Outreach Provider Action/FYI Left VM Asthma H@H Appointments for Next 60 Days Date Time Provider Location Dept Phone 03/08/2023 2:30 PM MENA MACHUCA [facility] [phone] Contacted for: Routine Telephonic Outreach Contact made with patient: No, left message. Humberto Wang RN February 08, 2023 1:14 PM [facility] 02-08-2023 History of Present illness Narrative CDM Telephonic Outreach Provider Action/FYI Left VM Asthma H@H Appointments for Next 60 Days Date Time Provider Location Dept Phone 03/08/2023 2:30 PM MENA MACHUCA [facility] [phone] Contacted for: Routine Telephonic Outreach Contact made with patient: No, left message. Humbreto Wang RN February 08, 2023 1:14 PM documented in this encounter [facility] 01-24-2023 Miscellaneous Notes Mr. Lewis denies any new or worsening symptoms of which a provider is not aware: He said he went to pain management today at [facility] and they were asking if he was on a blood thinner and he wasn't sure if any of his meds were. He read this nurse his meds which I reviewed in his Epic chart. He is going to let them know the meds he is on. documented in this encounter [facility] 01-21-2023 Note HNO ID: [id number] Author: Husam Deras, DO Service: ? Author [...] Coronary atherosclerosis of unspecified type of vessel, marshall or graft 09/12/1999 s/p CABG 1999, first [...] unsure) Coronary Artery Disease Father of presumed [place]; heavy drinker Alcohol/Drug Father Prostate Cancer Other [...] wheezing or r (more content not included)... [facility] 01-21-2023 History of Present illness [...] Coronary atherosclerosis of unspecified type of vessel, marshall or graft 09/12/1999 s/p CABG 1999, first [...] unsure) Coronary Artery Disease Father of presumed [place]; heavy drinker Alcohol/Drug Father Prostate Cancer Other [...] agreed with the plan. Husam Deras DO [address] [place] [address] documented in this encounter [facility] 01-11-2023 Miscellaneous Notes This note was completed [...] signed before I can fax consult to [facility]. Informed patient that provider will be back tomorrow and will complete then. Will try to continue on walking and stretching per patient. Meredith Montoya Please inform patient that his lumbar xray shows degenerative arthritis changes and disc changes. Continue need for stretches and walking and PHYSICAL THERAPY Husam Deras DO documented in this encounter [facility] [facility] Note HNO ID: [id number] Author: Nettie Gutierrez Service: ? Author Type: ? Type: Progress Notes Filed: 01/10/2023 3:46 PM Note Text: POPULATION HEALTH NAVIGATION OUTREACH Action/[facility] Support: Called pt to schedule an appt in Pain Management. No voicemail, unable to lvm Patient Identified by Name and : NO Outreach Outcome/Action Unable to reach patient: Phone number not valid / voicemail full Did you use a PCP flex slot to schedule this appointment? No Reason for Outreach Care Gap or Scheduling/Wellness visits Payer: Payor: [employer] / Plan: Dapt HMO / Product Type: HMO / Care Gap Reviewed:: Specialty Scheduling Reminder: Reminder note to check Health Maintenance for items below Health Maintenance items due: DTAP,TDAP,TD(1 - Tdap) due on 02/01/2013 SHINGRIX VACCINE(2 of 3) due on 03/11/2014 Navigation Signature: Nettie Gutierrez January 10, 2023 3:45 PM [facility] 01-10-2023 Note Patient Outreach (NE TNAV) GEORGE LEWIS ([id number]) 1940 M Date Time Provider Department 01/10/23 NO PCP NETNAV During your visit today, we recorded the following information about you: Nettie Gutierrez 01/10/2023 3:46 PM Signed POPULATION HEALTH NAVIGATION OUTREACH Action/[facility] Support: Called pt to schedule an appt in Pain Management. No voicemail, unable to lvm Patient Identified by Name and : NO Outreach Outcome/Action Unable to reach patient: Phone number not valid / voicemail full Did you use a PCP flex slot to schedule this appointment? No Reason for Outreach Care Gap or Scheduling/Wellness visits Payer: Payor: [employer] [facility] / Plan: IVON AYALA HMO / Product [...] Date Reviewed: 01/05/2023 Reviewed by: Stu James APRN.COMMUNITY MANAGER - Fully Assessed Prescriptions as of 01/10/2023 [...] [E66.9] 03/30/2017 10/20/2018 Coronary artery disease involving marshall lau*10/18/2017 Obesity, Class I, BMI 30-34.9 [E66.9] [...] neurogenic claudication [M*04/09/ (more content not included)... [facility] 01-06-2023 Note HNO ID: [id number] Author: Priscilla Mccoy RN Service: ? Author Type: Registered Nurse Type: Progress Notes Filed: 01/06/2023 2:30 PM Note Text: CDM Telephonic Outreach Provider Action/FYI -copd, htn [...] more often than normal? No Based on acquisition lead, the following disposition is advised: Symptoms present, not severe. Routed to: No Action Needed NEISHA Education Provided this Outreach: No Priscilla Mccoy RN January 06, 2023 2:27 PM [facility] 01-06-2023 History of Present illness Narrative CDM Telephonic Outreach Provider Vilma/JDUY -copd, htn Patient states he is doing [...] more often than normal? No Based on acquisition lead, the following disposition is advised: Symptoms present, not severe. Routed to: No Action Needed NEISHA Education Provided this Outreach: No Priscilla Mccoy RN January 06, 2023 2:27 PM documented in this encounter [facility] 01-06-2023 Note Patient Outreach (AM [facility] GEORGE LEWIS ([id number]) 1940 M Date Time Provider Department 01/06/23 PRISCILLA MCCOY During your visit today, we recorded the following information about you: Priscilla Mccoy RN 01/06/2023 2:[address] [facility] Telephonic Outreach Provider Vilma/JUDY Johnsoncopd, htn Patient states he is doing well [...] more often than normal? No Based on acquisition lead, the following disposition is advised: Symptoms present, not severe. Routed to: No Action Needed NEISHA Education Provided this Outreach: No Priscilla Mccoy RN January 06, 2023 2:27 PM Allergies As of Date: 01/06/2023 Noted Allergy Reaction LIPITOR (ATORVASTATIN) 08/16/2007 5 - Intolerance Comments: Severe leg cramps, stopped Date Reviewed: 01/05/2023 Reviewed by: Stu James APRN.COMMUNITY MANAGER - Fully Assessed Reason for Visit: Community [...] [E66.9] 03/30/2017 10/20/2018 Coronary artery disease involving marshall lau*10/18/2017 Obesity, Class I, BMI 30-34.9 [E66.9] 10/18/2017 Dizziness [R42] 12/19/2017 Elevated fasting glucose [R73.01] 12/19/2017 Allergic rhinitis due to allergen [J30.9] 12/19/2017 PAD (peripheral artery disease) (HCC) [I73.9] 03/16/2019 Pure hyper (more content not included)... [facility] 01-05-2023 Note HNO ID: [id number] Author: Stu James APRN.COMMUNITY MANAGER Service: ? Author Type: Nurse Practitioner Type: [...] Coronary atherosclerosis of unspecified type of vessel, marshall or graft 09/12/1999 s/p CABG 1999, first [...] unsure) Coronary Artery Disease Father of presumed [place]; heavy drinker Alcohol/Drug Father Prostate Cancer Other [...] Appearance: Well ap (more content not included)... [facility] 01-04-2023 Note HNO ID: [id number] Author: Bernadette Bello RT(R) Service: ? Author Type: Carpenter Mold Type: Progress Notes Filed: 01/04/2023 10:14 AM Note Text: Radiology Service Progress Note PATIENT NAME: George Lewis DATE OF SERVICE: January 04, 2023 TIME: [...] RT Amilcar(R) January 04, 2023 10:02 AM [facility] 01-03-2023 Note Patient Outreach (NE TNAV) GEORGE LEWIS ([id number]) 1940 M Date Time Provider Department 01/03/23 KOFI LEWIS [...] for Outreach Healthy at Home Payer: Payor: IVON [employer] AND Electronic Payment and Services (EPS) / Plan: IVON ROLAGLORY HMO / Product Type: HMO / Care [...] 07/01/2014 Hx of (more content not included)... [facility] 01-03-2023 Note HNO ID: [id number] Author: Kofi Lewis MA Service: ? Author Type: Head Cook Type: Progress Notes Filed: 01/03/2023 11:19 AM [...] for Outreach Healthy at Home Payer: Payor: [employer] AND Electronic Payment and Services (EPS) / Plan: [employer] HMO / Product Type: HMO / Care Gap Reviewed:: N/A Reminder: Reminder note to check Health Maintenance for items below Health Maintenance items due: DTAP,TDAP,TD(1 - Tdap) due on 02/01/2013 SHINGRIX VACCINE(2 of 3) due on 03/11/2014 Navigation Signature: Kofi Lewis MA January 03, 2023 11:07 AM [facility] 01-03-2023 History of Present illness [...] appointment: yes with Certified Nurse Practitioner Stu Márquezman, 01/05/2023 at 2:20 PM. Routed to PRIMARY CARE PROVIDER: NO Route to PCC as FYI NO. Encounter Closed. Patient Identified by Name and : YES, via phone Outreach Outcome/Action Spoke to patient / parent / legal guardian: Patient scheduled Did you use a PCP flex slot to schedule this appointment? No Reason for Outreach Healthy at Home Payer: Payor: [employer] AND Electronic Payment and Services (EPS) / Plan: Dapt HMO / Product Type: HMO / Care Gap Reviewed:: N/A Reminder: Reminder note to check Health Maintenance for items below Health Maintenance items due: DTAP,TDAP,TD(1 - Tdap) due on 02/01/2013 SHINGRIX VACCINE(2 of 3) due on 03/11/2014 Navigation Signature: Kofi Lewis MA January 03, 2023 11:07 AM documented in this encounter [facility] 01-03-2023 Miscellaneous Notes HEALTHY AT HOME OUTREACH Provider Action/FYI: Patient c/o bilateral leg pain at night. Patient would like Pain Management referral. Conferenced to Flor Elkins at [facility] for appointment. Charly, you've reached [facility], my name is Pamela Barroso RN, I'm a registered nurse, and we are on a recorded line. Patient identified by name and date of Spoke with patient Verify that the patient is a [facility] patient: Yes Are you having any symptoms today? Yes - Go to [facility] Protocol Symptoms present: bilateral leg pain [...] Outcome: Patient was conferenced to Severo in [facility] Navigator/Appointment Center for PCP within 24 hour [...] reference to Pain Management. Protocols used: Leg [id number] documented in this encounter [facility] 12-10-2022 Miscellaneous Notes Reason for Call: Pt calling to reschedule testing in vascular department. States he cannot make it on 12/17/22. Outcome: Transferred to Vascular department at [phone]. documented in this encounter [facility] 12-10-2022 Miscellaneous Notes Patient has rescheduled testing to 12-17 and follow up 12-[address] Machuca Please call patient to schedule testing prior to appt with on 12/14/22. If the testing can not be done prior patient will need to reschedule the OV as well Thank you! documented in this encounter [facility] 12-07-2022 Note Patient Outreach (AM BC) LESLI LEWISROBERT Pedersen ([id number]) 1940 M Date Time Provider Department 12/07/22 HUMBERTO WANG During your visit today, we recorded the following information about you: Humberto Wang RN 12/07/2022 12:[address] [facility] TELEPHONIC OUTREACH Provider Action/FYI: Spoke with patient [...] Dept Phone 12/14/2022 10:30 AM MENA MACHUCA [facility] [phone] 01/21/2023 8:[address] [facility] [phone] Contact made with patient: Yes Patient identified [...] like to speak with a social work staff nurse icu resource team to help give you support for any [...] you up for automated weekly questionnaires through [employer]. This is an easy way for us [...] - meloxicam (MOBIC) (more content not included)... [facility] 12-07-2022 Note HNO ID: [id number] Author: Humberto Wang RN Service: ? Author Type: Registered Nurse Type: Progress Notes Filed: 12/07/2022 12:44 PM Note Text: INSIGHT CDM TELEPHONIC OUTREACH Provider Action/FYI: Spoke with patient who reports that he is feeling well and has no needs at this time. Wt is 229lbs which is 1 lb down from last month. Reminded pt of availability of nurse at [facility] . Reviewed upcoming appts with patient. Asthma Appointments for Next 60 Days Date Time Provider Location Dept Phone 12/14/2022 10:30 AM MENA MACHUCA [facility] [phone] 01/21/2023 8:[address] [facility] [phone] Contact made with patient: Yes Patient identified [...] like to speak with a social work staff nurse icu resource team to help give you support for any [...] you up for automated weekly questionnaires through [employer]. This is an easy way for us [...] the Track Pt Outreach and End outreach. [facility] 12-07-2022 History of Present illness [...] Dept Phone 12/14/2022 10:30 AM MENA MACHUCA [facility] [phone] 01/21/2023 8:40 AM HUSAM DERAS [facility] [phone] Contact made with patient: Yes Patient identified [...] like to speak with a social work staff nurse icu resource team to help give you support for any [...] you up for automated weekly questionnaires through [employer]. This is an easy way for us [...] and End outreach. documented in this encounter [facility] 2022 Miscellaneous Notes Glendy with [facility] called to see if pt is [...] Ashia Brothers LPN documented in this encounter [facility] 11-16-2022 Miscellaneous Notes [facility]ALTH[facility] AT HOME OUTREACH Provider Action/FYI: Patient calling [facility] for refill of gabapentin [...] pain in his feet. Please call into [facility]strada Please call patient at [phone] to notify him when ordered. Charly, you've reached [facility], my name is Rosa [...] call us back. documented in this encounter [facility] 11-12-2022 Note HNO ID: [id number] Author: Stu James APRN.RAFAEL Service: ? Author Type: Nurse Practitioner Type: Progress Notes Filed: 11/12/2022 2:44 PM Note Text: Noted, thank you. Stu James APRN.CNP [facility] 11-12-2022 Miscellaneous Notes Pt informed, verbalized understanding Meredith Montoya Please let George know that his thyroid lab work is all in normal range, no concerns. Stu James APRN.COMMUNITY MANAGER documented in this encounter [facility] 11-11-2022 Note HNO ID: [id number] Author: Yesenia Márquez RN Service: ? Author Type: Registered Nurse Type: Progress Notes Filed: 11/11/2022 8:13 AM Note Text: Attempted to contact pt x 2 at Home/Mobile #, no answer. Attempted to contact pt's son Nick and no answer, and VM box not set up. Please try contacting pt again. Yesenia Márquez RN [facility] 11-10-2022 Note HNO ID: [id number] Author: Husam Deras, DO Service: ? Author Type: Physician Type: Progress Notes Filed: 11/10/2022 7:57 PM Note Text: Agree with need to recheck labs now when able. Please inform patient Husam Deras, [facility] 11-08-2022 Note Patient Outreach (AM [facility]) GEORGE LEWIS ([id number]) 1940 M Date Time Provider Department 11/08/22 [...] reminded pt of availability of nurse at [facility] . Sent message to PCP to notify of levothyroxine error of taking one extra tablet per week for two weeks and asked when she wants his labwork done. Asthma Appointments for Next 60 Days Date Time Provider Location Dept Phone 12/14/2022 10:30 AM MENA MACHUCA [phone] Contact made with patient: Yes Patient identified [...] like to speak with a social work staff nurse icu resource team to help give you support for any [...] you up for automated weekly questionnaires through [employer]. This is an easy way for us [...] now when able. Please inform patient Husam Deras, DO Husam Deras DO 11/10/2022 7:57 PM Signed Addended by: BRAEDEN, (more content not included)... [facility] 11-08-2022 Note HNO ID: [id number] Author: Hubmerto Wang RN Service: ? Author Type: Registered [...] reminded pt of availability of nurse at [facility] . Sent message to PCP to notify of levothyroxine error of taking one extra tablet per week for two weeks and asked when she wants his labwork done. Asthma Appointments for Next 60 Days Date Time Provider Location Dept Phone 12/14/2022 10:30 AM MENA MACHUCA [facility] [phone] Contact made with patient: Yes Patient identified [...] like to speak with a social work staff nurse icu resource team to help give you support for any [...] you up for automated weekly questionnaires through [employer]. This is an easy way for us [...] the Track Pt Outreach and End outreach. [facility] 11-05-2022 Note Patient Outreach (AM [facility]) GEORGE LEWIS ([id number]) 1940 M Date Time Provider Department 11/05/22 HUMBERTO WANG During your visit today, we recorded the following information about you: Humberto Wang RN 11/05/2022 2:[address] [facility] TELEPHONIC OUTREACH Provider Action/FYI: Left Asthma Appointments for Next 60 Days Date Time Provider Location Dept Phone 12/14/2022 10:30 AM MENA MACHUCA [phone] Contact made with patient: No - Left message Charly my name is Humberto Wang RN your Internet Designer from the [facility] I am calling today for your bi-weekly [...] [E66.9] 03/30/2017 10/20/2018 Coronary artery disease involving marshall lau*10/18/2017 Obesity, Class I, BMI 30-34.9 [E66.9] [...] (impaired fasting gluco (more content not included)... [facility] 11-05-2022 Note HNO ID: [id number] Author: Humberto Wang RN Service: ? Author Type: Registered Nurse Type: Progress Notes Filed: 11/05/2022 2:45 PM Note Text: [facility] TELEPHONIC OUTREACH Provider Action/FYI: Left VM Asthma Appointments for Next 60 Days Date Time Provider Location Dept Phone 12/14/2022 10:30 AM MENA MACHUCA [phone] Contact made with patient: No - Left message Charly my name is Humberto Wang RN your Internet Designer from the [facility] I am calling today for your bi-weekly check in. I am sorry I missed your call. I will reach out to you again tomorrow. (if the third call I will reach out to you again next week) Enter next patient outreach date for the following day using the Track Pt Outreach. End outreach. [facility] 11-05-2022 History of Present illness Narrative [facility] TELEPHONIC OUTREACH Provider Action/FYI: Left VM Asthma Appointments for Next 60 Days Date Time Provider Location Dept Phone 12/14/2022 10:30 AM MENA MACHUCA [phone] Contact made with patient: No - Left message Hello my name is Humberto Wang RN your Internet Designer from the [facility] I am calling today for your bi-weekly check in. I am sorry I missed your call. I will reach out to you again tomorrow. (if the third call I will reach out to you again next week) Enter next patient outreach date for the following day using the Track Pt Outreach. End outreach. documented in this encounter [facility] 11-02-2022 Miscellaneous Notes [facility] HOME OUTREACH Provider Action/FYI: Patient returning sonny to pcp office. Please see 10/25/22 refill encounter. Charly, you've reached [facility], my name is Kimberly Baker [...] by H@H RN Thank you for calling [facility]. If you develop any new symptoms, your condition worsens, then GO TO THE EMERGENCY ROOM OR CALL 911. If you have any questions, please call us back. documented in this encounter [facility] 10-26-2022 Note HNO ID: [id number] Author: Jose M Kay APRN.COMMUNITY MANAGER Service: ? Author Type: Nurse Practitioner Type: Progress Notes Filed: 10/26/2022 12:08 PM Note Text: Heart and Vascular [address] Bruce Gott[facility] Department of Cardiovascular Medicine SECTION OF CLINICAL CARDIOLOGY OUTPATIENT VISIT DATE October 25, 2022 OUTPATIENT VISIT TYPE ESTABLISHED PRIMARY CARE PHYSICIAN: Husam Deras [address] [place] [address] REASON FOR VISIT: 8 month follow up [...] Coronary atherosclerosis of unspecified type of vessel, marshall or graft 09/12/1999 s/p CABG 1999, first [...] unsure) Coronary Artery Disease Father of presumed [place]; heavy drinker Alcohol/Drug Father Prostate Cancer Other [...] difficulties. HEENT: Nega (more content not included)... [facility] 10-26-2022 History of Present illness Narrative Images from the original note were not included. Heart [facility] [address] [facility] Department of Cardiovascular Medicine SECTION OF CLINICAL CARDIOLOGY OUTPATIENT VISIT DATE October 25, 2022 OUTPATIENT VISIT TYPE ESTABLISHED PRIMARY CARE PHYSICIAN: Husam Deras [address] [place] [address] REASON FOR VISIT: 8 month follow up [...] Coronary atherosclerosis of unspecified type of vessel, marshall or graft 09/12/1999 s/p CABG 1999, first [...] unsure) Coronary Artery Disease Father of presumed [place]; heavy drinker Alcohol/Drug Father Prostate Cancer Other [...] with the prior echocardiographic exam performed on 03/02/2019, no significant [...] 3 (MORALES-LAD, SVG-OM, SVG-PDA) in 2000 at [facility] 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 CONTACT INFORMATION: Jose M aKy APRN.CNP Cardiology Nurse Practitioner Section of Regional Cardiology [facility] Dept of Cardiovascular Medicine [facility] Heart [facility] [address] [place] [address] Office Office This note was partially generated using [employer] voice recognition system, and there may be some incorrect words, spellings, and punctuation that were not noted in checking the note before saving. I personally interviewed, confirmed and edited the above information if obtained by others. documented in this encounter [facility] 10-26-2022 Instructions Jose M Kay APRN.CNP - 10/26/2022 11:17 AM EST 1. Stop pravastatin 2. Start rosuvastatin 10mg once a day 3. We'll recheck your fasting blood work in 3 months to check the cholesterol. documented in this encounter [facility] 10-26-2022 Miscellaneous Notes Kayleigh with [facility] calls to request Tamsulosin order be re-sent with clarified instructions whether it is to be once daily as previously ordered or twice daily. Pended for twice daily. Needs override reason if ordered twice daily or changed to once daily. Please review and advise, Tamra Real RN documented in this encounter [facility] 10-26-2022 Miscellaneous Notes [facility] HOME OUTREACH Provider Action/FYI: Patient calling to schedule an appointment with his vascular doctor, Dr. Machuca. Hello, you've reached [facility], my name is Annie [...] to Appointment Center documented in this encounter [facility] 10-25-2022 Note HNO ID: [id number] Author: Husam Deras, DO Service: ? Author [...] Coronary atherosclerosis of unspecified type of vessel, marshall or graft 09/12/1999 s/p CABG 1999, first [...] unsure) Coronary Artery Disease Father of presumed [place]; heavy drinker Alcohol/Drug Father Prostate Cancer Other [...] mgTake 1 capsu (more content not included)... [facility] 10-11-2022 Miscellaneous Notes [facility]ALTH[facility] HOME OUTREACH Provider Action/FYI: Patient calling to change his Cardiology appointment. Charly, you've reached [facility], my name is Pat Zhao RN, I'm a registered nurse, and we are on a recorded line. Patient identified by name and date of Spoke with patient Verify that the patient is a [facility] patient: Yes Are you having any symptoms today? No - What is the reason for call? Appointment Patient calling to change his Cardiology appointment on 10/21/22. Call Disposition: Managed by H@H RN Conferenced patient to [facility] [place]'s Cardiology office for appointment assistance. Thank you for calling [facility]. If you develop any new symptoms, your condition worsens, then GO TO THE EMERGENCY ROOM OR CALL 911. If you have any questions, please call us back. documented in this encounter [facility] 10-08-2022 Note Patient Outreach (AM [facility] GEORGE LEWIS ([id number]) 1940 M Date Time Provider Department 10/08/22 HUMBERTO WANG During your visit today, we recorded the following information about you: Humberto Wang RN 10/08/2022 10:[address] [facility] TELEPHONIC OUTREACH Provider Action/FYI: 2nd TO attempt Pharmacist was unable to reach patient after last call when patient said he had stopped his advair because he didn't need it. HEALTHY AT HOME PHONE NUMBER . Spoke with the patient who reports that he is feeling very well and has no needs at this time. He walks through [facility] in bad weather to get exercise. [...] Phone 10/21/2022 3:30 PM JOSE M KAY [facility] [phone] 10/25/2022 9:[address] [facility] [phone] Contact made with patient: Yes Patient identified [...] like to speak with a social work staff nurse icu resource team to help give you support for any [...] you up for automated weekly questionnaires through [employer]. This is an easy way for us [...] daily. - p (more content not included)... [facility] 10-08-2022 Note HNO ID: [id number] Author: Humberto Wang RN Service: ? Author [...] needs at this time. He walks through [facility] in bad weather to get exercise. [...] Phone 10/21/2022 3:30 PM JOSE M KAY [facility] [phone] 10/25/2022 9:[address] [facility] [phone] Contact made with patient: Yes Patient identified [...] like to speak with a social work staff nurse icu resource team to help give you support for any [...] you up for automated weekly questionnaires through [employer]. This is an easy way for us [...] the Track Pt Outreach and End outreach. [facility] 10-08-2022 History of Present illness [...] needs at this time. He walks through [facility] in bad weather to get exercise. [...] Phone 10/21/2022 3:30 PM JOSE M KAY [facility] [phone] 10/25/2022 9:[address] [facility] [phone] Contact made with patient: Yes Patient identified [...] like to speak with a social work staff nurse icu resource team to help give you support for any [...] you up for automated weekly questionnaires through [employer]. This is an easy way for us [...] and End outreach. documented in this encounter [facility] 10-07-2022 Note Patient Outreach (AM [facility]) GEORGE LEWIS ([id number]) 1940 M Date Time Provider Department 10/07/22 HUMBERTO WANGiNkhil During your visit today, we recorded the following information about you: Humberto Wang RN 10/07/2022 1:[address] [facility] TELEPHONIC OUTREACH Provider Action/FYI: Pharmacist was unable to reach patient after last call when patient said he had stopped his advair because he didn't need it. [facility] PHONE NUMBER . Left Asthma Appointments for Next 60 Days Date Time Provider Location Dept Phone 10/21/2022 3:30 PM JOSE M KAY [facility] [phone] 10/25/2022 9:40 AM HUSAM DERAS [facility] [phone] Contact made with patient: No - Left message Hello my name is Humberto Wang RN your Internet Designer from the [facility] I am calling today for your bi-weekly [...] [E66.9] 03/30/2017 10/20/2018 Coronary artery disease involving marshall lau*10/18/2017 Obesity, Class I, BMI 30-34.9 [E66.9] 10/18/2017 Dizziness [R42] 12/19/2017 Elevated fasting glucose [R73.01] 12/19/2017 Allergic rhinitis due to allergen [J30.9] 12/19/2017 PAD (peripheral artery disease) (HCC) [I73.9] 03/16/2019 Pure hypercholesterolemia [E78.00] 04/20/2019 Chronic pain of both knees [M25.561, M25.562, G*04/20/2019 Pain of right lower extremity [M79.604] 10/23/2019 Benign nodular prostatic hyperplasia without lo* (more content not included)... [facility] 10-07-2022 Miscellaneous Notes [facility] OUTREACH Provider Action/FYI: Patient calling for a refill prescription of Meclizine 25 mg and Atenolol 25 mg to be sent to [facility] as listed in chart. Charly, you've reached [facility], my name is Pat Zhao RN, I'm a registered nurse, and we are on a recorded line. Patient identified by name and date of Spoke with patient Verify that the patient is a [facility] patient: Yes Are you having any symptoms today? No - What is the reason for call? Refill General Questions/Other Need Patient calling for a refill prescription of Meclizine 25 mg and Atenolol 25 mg to be sent to [facility] as listed in chart. Allergies checked. Patient also stated he had stopped taking the pregabalin 5 days after starting it on 07/21/22 due to increasing pain and went back to taking gabapentin. Dr. Deras not aware. Patient has an appointment next month. Call Disposition: Managed by H@H RN Routed to PCP Atenolol 25 mg showing 11 refills available. Called [facility] and they do have current prescription and it is ready for patient to machine operator hop picker. Patient aware and will machine operator hop picker prescription. Advised patient I will route refill request of Meclizine [address] Deras to refill. Also advised patient I will let Dr. Deras know he has been taking gabapentin instead of pregabalin. Patient expresses understanding and appreciation. Thank you for calling [facility]. If you develop any new symptoms, your condition worsens, then GO TO THE EMERGENCY ROOM OR CALL 911. If you have any questions, please call us back. documented in this encounter [facility] 10-07-2022 Note HNO ID: [id number] Author: Humberto Wang RN Service: ? Author [...] Dept Phone 10/21/[facility]22 3:[facility] [phone] 10/25/2022 9:[address] [facility] [phone] Contact made with patient: No - Left message Hello my name is Humberto Wang RN your Internet Designer from the [facility] I am calling today for your bi-weekly check in. I am sorry I missed your call. I will reach out to you again tomorrow. (if the third call I will reach out to you again next week) Enter next patient outreach date for the following day using the Track Pt Outreach. End outreach. [facility] 09-15-2022 Miscellaneous Notes First attempt [...] provider is unaware of at this time. Rubenlo, you've reached [facility], my name is Judi Rodriguez RN, I'm a registered nurse, and we [...] call us back. documented in this encounter [facility] 09-14-2022 Note HNO ID: [id number] Author: Rosa Ohara Service: ? Author Type: [...] for Outreach Community Monitoring Pool Payer: Payor: [facility] [employer] [facility] [facility] / Plan: ANTHEM MEDIBLUE HMO / Product Type: HMO / Care Gap Reviewed:: Follow-up appointment Reminder: Reminder note to check Health Maintenance for items below Health Maintenance items due: SHINGRIX VACCINE(2 of 3) due on 03/11/2014 DEPRESSION ASSESSMENT due on 09/12/2022 Navigation Signature: Rosa Ohara September 14, 2022 10:43 AM [facility] 09-14-2022 Miscellaneous Notes Pharmacy Community [...] with any immediate questions or concerns. Antwon Inman, Navi BCACP documented in this encounter [facility] 09-14-2022 History of Present illness Narrative POPULATION HEALTH NAVIGATION OUTREACH Action/FYI Spoke to patient and follow up scheduled. Pt identified by name and : YES, via phone Outreach Outcome/Action Spoke to patient or caregiver: Patient scheduled Did you use a PCP flex slot to schedule this appointment? No Reason for Outreach Community Monitoring [employer] Payer: Payor: [employer] / Plan: AN[employer]M MEDIBLUE HMO / Product Type: HMO / Care Gap Reviewed:: Follow-up appointment Reminder: Reminder note to check Health Maintenance for items below Health Maintenance items due: SHINGRIX VACCINE(2 of 3) due on 03/11/2014 DEPRESSION ASSESSMENT due on 09/12/2022 Navigation Signature: Rosa Ohara September 14, 2022 10:43 AM POPULATION HEALTH NAVIGATION OUTREACH Action/FYI 1st attempt - voicemail message left offering to schedule 3-mo follow up appt (around 10/21/22). Postponing 2 days. Insight/CDM appt needed for: appt in October Pt identified by name and : NO Outreach Outcome/Action Unable to reach patient: Left message Did you use a PCP flex slot to schedule this appointment? N/A Reason for Outreach Community Monitoring [employer] Payer: Payor: [employer] SHIELD / Plan: AN[employer]M MEDIBLUE HMO / Product Type: HMO / Care Gap Reviewed:: Follow-up appointment Reminder: Reminder note to check Health Maintenance for items below Health Maintenance items due: SHINGRIX VACCINE(2 of 3) due on 03/11/2014 Navigation Signature: Lauren Dexter MA September 10, 2022 2:13 PM INSIGHT [facility] TELEPHONIC OUTREACH Provider Action/FYI: Spoke [...] of the availability of the nurses at [facility] PHONE NUMBER . Pended refill for atenolol. Sent message to schedulers to call to arrange next appointment in [facility] in October. Asthma Appointments for Next 60 Days Date Time Provider Location Dept Phone 10/21/2022 8:30 AM JOSE M KAY [facility] [phone] Contact made with patient: Yes Patient identified [...] encounter to RX 4C MEDICATION QUESTION pool [[id number]} and indicate reason for referral in the [...] like to speak with a social work staff nurse icu resource team to help give you support for any [...] you up for automated weekly questionnaires through [employer]. This is an easy way for us [...] 2022 2:46 PM documented in this encounter [facility] 07-29-2022 History of Present illness Narrative INSIGHT [...] like to speak with a social work staff nurse icu resource team to help give you support for any [...] you up for automated weekly questionnaires through [employer]. This is an easy way for us [...] and End outreach. documented in this encounter [facility] 07-22-2022 History of Present illness Narrative INSIGHT [...] - End Outreach documented in this encounter [facility] 07-21-2022 History of Present illness Narrative Chief Complaint Patient presents with: Follow Up HPI George Lewis is a 81 year old male who presents here today for Above Complaints. George is an established patient of Dr. Deras, DO and myself. Concerns today.. Follow-up of routine [...] months ago had successful cholecystectomy surgery at [facility]. No complications. Took about a month to control diet changes but has a good control over diet now. Osteoarthritis in bilateral knees- -- Follows with ortho GENIE Olmedo for this. Had injections on 06/28/22. Pt [...] Coronary atherosclerosis of unspecified type of vessel, marshall or graft 09/12/1999 s/p CABG 1999, first [...] unsure) Coronary Artery Disease Father of presumed [place]; heavy drinker Alcohol/Drug Father Prostate Cancer Other [...] SEASONAL QUADRIVALENT HIGH DOSE AGE 65+ - 1001 Menus COVID-19 BIVALENT BOOSTER VACCINE, AGE 12+ YR [...] Patient agreeable to treatment plan. Fernanda Santos APRN.RAFAEL [address] [place] [address] documented in this encounter [facility] 06-28-2022 History of Present illness Narrative Associated Order(s): Large Joint Arthro/Inj: bilateral knee joints Post-Procedure Diagnose(s): Primary osteoarthritis of both knees Large Joint Arthro/Inj: bilateral knee joints Informed Consent Consent Obtained: Verbal Keller Protocol A moment to CARE was completed. [...] is not having pain today. LOT # [id number] EXP 2023-04-29 Caitlin Lim RN documented in this encounter [facility] 06-25-2022 History of Present illness Narrative [facility] TELEPHONIC OUTREACH Provider Action/FYI: Contact made with patient: No - Left message Charly my name is Yasmin Marquez RN your Internet Designer from the [facility] I am calling today for your bi-weekly check in. I am sorry I missed your call. I will reach out to you again tomorrow. (if the third call I will reach out to you again next week) Enter next patient outreach date for the following business day using the Track Pt Outreach. End outreach. documented in this encounter [facility] 06-24-2022 History of Present illness Narrative [facility] TELEPHONIC OUTREACH Provider Action/FYI: Contact made with patient: No - Left message Charly my name is Yasmin Marquez RN your Internet Designer from the [facility] I am calling today for your bi-weekly check in. I am sorry I missed your call. I will reach out to you again tomorrow. (if the third call I will reach out to you again next week) Enter next patient outreach date for the following business day using the Track Pt Outreach. End outreach. documented in this encounter [facility] 06-17-2022 History of Present illness Narrative [facility] TELEPHONIC OUTREACH Provider Action/FYI: Contact made with patient: No - Left message Charly my name is Yasmin Marquez RN your Internet Designer from the [facility] I am calling today for your bi-weekly check in. I am sorry I missed your call. I will reach out to you again tomorrow. (if the third call I will reach out to you again next week) Enter next patient outreach date for the following business day using the Track Pt Outreach. End outreach. documented in this encounter [facility] 06-16-2022 Miscellaneous Notes DO Shelley Becerril, CT; [facility] His PVRs are a little bit better. Would recommend continued walking and exercising as he is able. Carotids are stable, no need for surgery at this time. I would recommend that he see me in 6 months Called patient left message with providers message Advised to call office with questions Patient was unaware they were scheduled for testing in [place] with same day follow up in [place]. Patient requesting to be called with testing results. documented in this encounter [facility] 06-16-2022 History of Present illness Narrative [facility] TELEPHONIC OUTREACH Provider Action/FYI: Contact made with patient: No - Left message Hello my name is Yasmin Marquez RN your Internet Designer from the [facility] I am calling today for your bi-weekly check in. I am sorry I missed your call. I will reach out to you again tomorrow. (if the third call I will reach out to you again next week) Enter next patient outreach date for the following business day using the Track Pt Outreach. End outreach. documented in this encounter [facility] 06-14-2022 History of Present illness Narrative Euflexxa injection into bilateral knees LOT # [id number] EXP 04/29/2023 Rosa Yuan Ma Associated Order(s): Large Joint Arthro/Inj: bilateral knee joints Post-Procedure Diagnose(s): Primary osteoarthritis of both knees Large Joint Arthro/Inj: bilateral knee joints Informed Consent Consent Obtained: Verbal Keller Protocol A moment to CARE was completed. [...] the home?: No documented in this encounter [facility] 06-09-2022 History of Present illness Narrative [facility] TELEPHONIC OUTREACH Provider Action/FYI: Contact made with patient: No - Left message Charly my name is Yasmin Marquez RN your Internet Designer from the [facility] I am calling today for your bi-weekly check in. I am sorry I missed your call. I will reach out to you again tomorrow. (if the third call I will reach out to you again next week) Enter next patient outreach date for the following business day using the Track Pt Outreach. End outreach. documented in this encounter [facility] 06-08-2022 History of Present illness Narrative [facility] TELEPHONIC OUTREACH Provider Action/FYI: Contact made with patient: No - Left message Charly my name is Yasmin Marquez RN your Internet Designer from the [facility] I am calling today for your bi-weekly check in. I am sorry I missed your call. I will reach out to you again tomorrow. (if the third call I will reach out to you again next week) Enter next patient outreach date for the following day using the Track Pt Outreach. End outreach. documented in this encounter [facility] 05-25-2022 Miscellaneous Notes Called patient. Verified name [...] Eden Preciado LPN documented in this encounter [facility] 05-20-2022 History of Present illness Narrative Called [...] of 10 aching. documented in this encounter [facility] 05-11-2022 History of Present illness Narrative PRIMARY CARE COORDINATION QUICK NOTE Provider Action/FYI Pt given the new [facility] phone number and explained the purpose of the number. [phone] Patient identified by name and date . documented in this encounter [facility] 05-04-2022 History of Present illness Narrative PRIMARY CARE COORDINATION QUICK NOTE Provider Action/FYI Left message for pt to call back for the [facility] phone number. documented in this encounter [facility] 04-26-2022 History of Present illness Narrative [facility] TELEPHONIC OUTREACH Provider Action/FYI: Contact made with patient: No - Left message Charly my name is Yasmin Marquez RN your Internet Designer from the [facility] I am calling today for your bi-weekly check in. I am sorry I missed your call. I will reach out to you again tomorrow. (if the third call I will reach out to you again next week) Enter next patient outreach date for the following business day using the Track Pt Outreach. End outreach. documented in this encounter [facility] 04-20-2022 History of Present illness Narrative [facility] TELEPHONIC OUTREACH Provider Action/FYI: Contact made with patient: No - Left message Charly my name is Yasmin Marquez RN your Internet Designer from the [facility] I am calling today for your bi-weekly check in. I am sorry I missed your call. I will reach out to you again tomorrow. (if the third call I will reach out to you again next week) Enter next patient outreach date for the following business day using the Track Pt Outreach. End outreach. documented in this encounter [facility] 04-19-2022 History of Present illness Narrative [facility] TELEPHONIC OUTREACH Provider Action/FYI: Contact made with patient: No - Left message Charly my name is Yasmin Marquez RN your Internet Designer from the [facility] I am calling today for your bi-weekly check in. I am sorry I missed your call. I will reach out to you again tomorrow. (if the third call I will reach out to you again next week) Enter next patient outreach date for the following using the Track Pt Outreach. End outreach. documented in this encounter [facility] documented as of this encounter (statuses as of 07/21/2023) [facility]08[facility]03[facility] History of Past illness Narrative* Problem Noted Date Diagnosed Date Resolved Date Restrictive airway disease 04/14/2022 1 09/20/2022 Pure hypercholesterolemia 04/20/2019 Obesity (BMI 30.0-34.9) 03/30/20170 04/2019 Coronary atherosclerosis of unspecified type of vessel, marshall or graft 04/19/2019 Overview: s/p CABG 1999, first he knew of CAD Obesity, unspecified 017 Overview: Max weight 260, fall 2006 documented as of this encounter (statuses as of 07/22/2023) [facility] History of Past illness Narrative* Problem Noted Date Diagnosed Date Resolved Date Restrictive airway disease 04/14/2022 1 09/20/2022 Pure hypercholesterolemia 04/20/2019 Obesity (BMI 30.0-34.9) 03/30/20170 04/2019 Coronary atherosclerosis of unspecified type of vessel, marshall or graft 04/19/2019 Overview: s/p CABG 1999, first he knew of CAD Obesity, unspecified 017 Overview: Max weight 260, fall 2006 documented as of this encounter (statuses as of 08/10/2023) [facility] History of Past illness Narrative* Problem Noted Date Diagnosed Date Resolved Date Restrictive airway disease 04/14/2022 1 09/20/2022 Pure hypercholesterolemia 04/20/2019 Obesity (BMI 30.0-34.9) 03/30/201704/2019 Coronary atherosclerosis of unspecified type of vessel, marshall or graft 04/19/2019 Overview: s/p CABG 1999, first he knew of CAD Obesity, unspecified 017 Overview: Max weight 260, fall 2006 documented as of this encounter (statuses as of 08/25/2023) [facility] History of Past illness Narrative* Problem Noted Date Diagnosed Date Resolved Date Restrictive airway disease 04/14/2022 1 09/20/2022 Pure hypercholesterolemia 04/20/2019 Obesity (BMI 30.0-34.9) 03/30/201704/2019 Coronary atherosclerosis of unspecified type of vessel, marshall or graft 04/19/2019 Overview: s/p CABG 1999, first he knew of CAD Obesity, unspecified 017 Overview: Max weight 260, fall 2006 documented as of this encounter (statuses as of 08/27/2023) [facility] History of Present illness Narrative* Husam Deras, - 04/14/2022 11:50 AM EDT CC: George [...] Coronary atherosclerosis of unspecified type of vessel, marshall or graft 09/12/1999 s/p CABG 1999, first [...] plan. See patient instructions. Husam Deras DO [address] [place] [address] [facility] History of Present illness Narrative* Yasmin Marquez RN - 04/12/2022 10:[address] [facility] TELEPHONIC OUTREACH Provider Action/FYI: message canceled when trying to leave a voicemail Contact made with patient: No - Unable to leave message Entered next patient outreach date for the following business day, if third call please enter next outreach date for one week in the Track Pt. Outreach - End Outreach [facility] History of Present illness Narrative* Yasmin Marquez RN - 04/09/2022 2:12 PM EDT [facility]IGHT [facility] TELEPHONIC OUTREACH Provider Action/FYI: Contact made with patient: No - Left message Hello my name is Yasmin Marquez RN your Internet Designer from the [facility] I am calling today for your bi-weekly check in. I am sorry I missed your call. I will reach out to you again tomorrow. (if the third call I will reach out to you again next week) Enter next patient outreach date for the following business day using the Track Pt Outreach. End outreach. [facility] History of Present illness Narrative* Yasmin Marquez RN - 03/12/2022 10:31 AM EDT [facility] TELEPHONIC OUTREACH Provider Action/FYI: Contact made with patient: No - Left message Hello my name is Yasmin Marquez RN your Internet Designer from the [facility] I am calling today for your bi-weekly check in. I am sorry I missed your call. I will reach out to you again tomorrow. (if the third call I will reach out to you again next week) Enter next patient outreach date for the following day using the Track Pt Outreach. End outreach. [facility] History of Present illness Narrative* Gideon Bueno DO - 02/18/2022 8:42 AM EDT Images from the original note were not included. [facility] SECTION OF [facility]IONAL CARDIOLOGY [facility] OUTPATIENT VISIT DATE February 18, 2022 PRIMARY CARE PHYSICIAN: Husam Deras [address] [place] [address] HISTORY OF PRESENT ILLNESS: Mr. Lewis is a 81 year old male. The patient turns for follow-up second history of coronary disease status post chordee bypass grafting x3 with a recent mildly abnormal nuclear stress test. He apparently underwent cardiac catheterization at [facility] and subsidy underwent his procedure of [...] Coronary atherosclerosis of unspecified type of vessel, marshall or graft 09/12/1999 s/p CABG 1999, first [...] unsure) Coronary Artery Disease Father of presumed [place]; heavy drinker Alcohol/Drug Father Prostate Cancer Other [...] mouth once daily. Gideon Bueno DO, FACC, FACOI Clinical and Preventive Cardiology Department of Medicine and Division of Cardiology, [facility] Junior Programmer Analystintensive care unit registered nurse [facility] Junior Programmer Analyst of Congestive Heart Failure Clinic [facility] Cardiology Office Junior Programmer Analyst [facility] Staff Associate Relations Specialist, Jaems and Suzy Black Department of Cardiovascular Medicine/Heart and Vascular [address], [facility] Clinical Cash Accountant Profressor of Medicine, [facility] of Medicine [facility] Please note: This note has been produced using speech recognition software and may contain errors related to that system including jessica, punctuation, spelling, words, gender and phrases that may be inappropriate. documented [facility] Miscellaneous Notes* Telephone Encounter - Pinky Miranda LPN - 02/12/2022 3:33 PM EDT Pt. informed. Pinky Miranda LPN * Telephone Encounter - Sunshine Nevarez LPN - 02/12/2022 2:58 PM EDT Left message to return call. * Telephone Encounter - Stu James APRN.CNP - 02/12/2022 12:07 PM EDT Please let [...] him to schedule this appointment. Stu James APRN.CNP [facility] History of Present illness Narrative* Stacia Davison, GWEN - 02/11/2022 10:47 AM EDT PULM FUNCTION SMARTBLOCK: Provider: Husam Deras DO Assisting Tech: GWEN Boswell Spirometry w/BD: 1 System: [id number] documented in [facility] Instructions* Patient Instructions* Husam Deras DO - 02/01/2022 8:33 AM EDT Consider starting a GLUCERNA protein shake (low sugar, high protein) for breakfast and for supper. Increase thyroid medication to 100 mcg a day - levothyroxine documented in [facility] History of Present illness Narrative* Husam Deras [...] (H) 4.3 - 5.6 % Final Comment: [place] [employer] guidelines indicate that patients with HgbA1c in the range 5.7-6.4% are at increased risk for development of diabetes, and intervention by lifestyle modification may be beneficial. HgbA1c greater or equal to 6.5% is considered diagnostic of diabetes. 11/22/2020 5.7 (H) 4.3 - 5.6 % Final Comment: [place] [employer] guidelines indicate that patients with HgbA1c in the range 5.7-6.4% are at increased risk for development of diabetes, and intervention by lifestyle modification may be beneficial. HgbA1c greater or equal to 6.5% is considered diagnostic of diabetes. 10/20/2018 5.6 4.3 - 5.6 % Final Comment: [place] [employer] guidelines indicate that patients with [...] Coronary atherosclerosis of unspecified type of vessel, marshall or graft 09/12/1999 s/p CABG 1999, first [...] unsure) Coronary Artery Disease Father of presumed [place]; heavy drinker Alcohol/Drug Father Prostate Cancer Other [...] for testing as below, will be seeing Associate Relations Specialist in 2 weeks approx. Has had recent [...] with the plan. Husam Deras DO [address] [place] [address] * Pinky Miranda LPN - 02/01/2022 8:14 [...] NOT DIFFICULT AT ALL [facility] Miscellaneous Notes* Telephone Encounter - Meredith Rothman Ma - 01/04/2022 4:28 PM EDT Pt informed and verbalized understanding. Meredith Rothman Ma * Telephone Encounter - Fernanda Santos APRN.CNP - 01/04/2022 4:08 PM EDT Please tell patient blood pressure remains stable and looks good. Continue current medciation regimen and continue current diet. Fernanda Santos APRN.RAFAEL * Telephone Encounter - Alba Hager LPN [...] PCP. Alba Hager LPN documented in this encounterL[facility] History of Present illness Narrative* Alba Hager [...] PCP. Alba Hager LPN documented in [facility] encounterL[facility]04[facility]13[facility] Miscellaneous Notes* Telephone Encounter - Meredith Rothman [...] He would like this rx sent to [facility] in [place]. Please advise Meredith Rothman Ma * Telephone Encounter - Stu James APRN.CNP - 12/23/2021 5:31 PM EDT Please let George know that we've received his lab results. His thyroid levels are in target range. Kidney function is stable. Blood counts are all in good range. Stu James APRN.RAFAEL documented in this encounterL[facility]04-11-2022 Instructions* Patient Instructions* Fernanda Santos APRN.CNP - 12/21/2021 11:06 AM EDT Nurse visit in 2 weeks to recheck BP. Bring cuff and machine with you. Get blood work from 10/19 documented in this encounterL[facility]04-11-[facility]22 History of Present illness Narrative* Fernanda Santos [...] dizziness, or palpitations. Taking BP at home: Associate Relations Specialist told him to take BP monthly. Has [...] by cardiology to have gallbladder removed at [facility]. Got call today on his way here that he was cleared and ready to schedule surgery. Past medical history, appointments, medications, allergies reviewed. 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 Fernanda Santos APRN.COMMUNITY MANAGER [address] [place] [address] documented in this encounterL[facility]04-07-[facility]22 Miscellaneous Notes* Telephone Encounter - Joseph Mars RN - 12/17/2021 11:03 AM EDT Called Pt advise him that we have cleared him for his upcoming cholecystectomy at [facility]. Clearance documented in OV from yesterday. We will likely need to send copy of OV to surgeon. [facility] Thanks LISSETT * Telephone Encounter - Erin Blood APRN.CNP - 12/17/2021 9:48 AM EDT Please call patient and advise him that we have cleared him for his upcoming cholecystectomy at [facility]. Clearance documented in OV from yesterday. We will likely need to send copy of OV to surgeon. Thanks LISSETT documented in this encounterL[facility]04-06-2022 Miscellaneous Notes* Telephone Encounter - Joseph Mars [...] to reassess coronary anatomy. documented in this encounterL[facility]04-01-[facility]22 History of Present illness Narrative* MARCELINO Paredes [...] STATUS: Discontinued PROCEDURE TYPE: NM Stress: 12.4mCi [id number] was administered IV for Rest Imaging at 07:20 by MARCELINO Paredes. 32.6 mCi [id number] was administered IV for Stress Imaging at 08:25 by MARCELINO Herrera. PATIENT DISCHARGED TO: Ambulatory patient, left [place] department area. A Diagnostic radioactive procedure has taken place, with no further precautions necessary other than routine body substance precautions. More information regarding radiation safety can be found usingthis link: [email or web address] SIGNATURE: MARCELINO Paredes PATIENT NAME: George Lewis DATE: December 11, 2021 TIME: 9:48 AM PAGER/CONTACT #: documented in this encounterLima City Hospital08-09-2019 History of Past illness Narrative* Problem Noted Date Resolved Date Pure hypercholesterolemia 04/20/20192022 Obesity (BMI 30.0-34.9) 03/30/2017 10/20/19 19 Coronary atherosclerosis of unspecified type of vessel, marshall or graft 04/19/2019 Overview: s/p CABG 1999, first he knew of CAD Obesity, unspecified 03/30/2017 Overview: Max weight 260, fall 2006 documented as of this encounter (statuses as of 10/26/2022) [facility] Narrative* Problem Noted Date Resolved Date Pure hypercholesterolemia 04/20/20192022 Obesity (BMI 30.0-34.9) 03/30/2017 10/20/19 19 Coronary atherosclerosis of unspecified type of vessel, marshall or graft 04/19/2019 Overview: s/p CABG 1999, first he knew of CAD Obesity, unspecified 03/30/2017 Overview: Max weight 260, fall 2006 documented as of this encounter (statuses as of 10/26/2022) [facility] Narrative* Problem Noted Date Resolved Date Pure hypercholesterolemia 04/20/20192022 Obesity (BMI 30.0-34.9) 03/30/2017 10/20/19 19 Coronary atherosclerosis of unspecified type of vessel, marshall or graft 04/19/2019 Overview: s/p CABG 1999, first he knew of CAD Obesity, unspecified 03/30/2017 Overview: Max weight 260fall documented as of this encounter (statuses as of 10/28/2022) [facility] Narrative* Problem Noted Date Resolved Date Pure hypercholesterolemia 04/20/20192022 Obesity (BMI 30.0-34.9) 03/30/2017 10/20/19 19 Coronary atherosclerosis of unspecified type of vessel, marshall or graft 04/19/2019 Overview: s/p CABG 1999, first he knew of CAD Obesity, unspecified 03/30/2017 Overview: Max weight 260fall documented as of this encounter (statuses as of 11/02/2022) [facility] Narrative* Problem Noted Date Resolved Date Pure hypercholesterolemia 04/20/20192022 Obesity (BMI 30.0-34.9) 03/30/2017 10/20/19 19 Coronary atherosclerosis of unspecified type of vessel, marshall or graft 04/19/2019 Overview: s/p CABG 1999, first he knew of CAD Obesity, unspecified 03/30/2017 Overview: Max weight 260fall documented as of this encounter (statuses as of 11/05/2022) [facility] Narrative* Problem Noted Date Resolved Date Pure hypercholesterolemia 04/20/20192022 Obesity (BMI 30.0-34.9) 03/30/2017 10/20/19 19 Coronary atherosclerosis of unspecified type of vessel, marshall or graft 04/19/2019 Overview: s/p CABG 1999, first he knew of CAD Obesity, unspecified 03/30/2017 Overview: Max weight 260fall documented as of this encounter (statuses as of 11/12/2022) [facility] Narrative* Problem Noted Date Resolved Date Pure hypercholesterolemia 04/20/20192022 Obesity (BMI 30.0-34.9) 03/30/2017 10/20/19 19 Coronary atherosclerosis of unspecified type of vessel, marshall or graft 04/19/2019 Overview: s/p CABG 2000, first he knew of CAD Obesity, unspecified 03/30/2017 Overview: Max weight 260fall documented as of this encounter (statuses as of 11/16/2022) [facility] Narrative* Problem Noted Date Resolved Date Pure hypercholesterolemia 04/20/20192022 Obesity (BMI 30.0-34.9) 03/30/2017 10/20/19 19 Coronary atherosclerosis of unspecified type of vessel, marshall or graft 04/19/2019 Overview: s/p CABG 1999, first he knew of CAD Obesity, unspecified 03/30/2017 Overview: Max weight 260fall documented as of this encounter (statuses as of 11/25/2022) [facility] Narrative* Problem Noted Date Resolved Date Pure hypercholesterolemia 04/20/20192022 Obesity (BMI 30.0-34.9) 03/30/2017 10/20/19 19 Coronary atherosclerosis of unspecified type of vessel, marshall or graft 04/19/2019 Overview: s/p CABG 1999, first he knew of CAD Obesity, unspecified 03/30/2017 Overview: Max weight 260fall documented as of this encounter (statuses as of 12/07/2022) [facility] Narrative* Problem Noted Date Resolved Date Pure hypercholesterolemia 04/20/20192022 Obesity (BMI 30.0-34.9) 03/30/2017 10/20/19 19 Coronary atherosclerosis of unspecified type of vessel, marshall or graft 04/19/2019 Overview: s/p CABG 1999, first he knew of CAD Obesity, unspecified 03/30/2017 Overview: Max weight 260fall documented as of this encounter (statuses as of 12/10/2022) [facility] Narrative* Problem Noted Date Resolved Date Pure hypercholesterolemia 04/20/20192022 Obesity (BMI 30.0-34.9) 03/30/2017 10/20/19 19 Coronary atherosclerosis of unspecified type of vessel, marshall or graft 04/19/2019 Overview: s/p CABG 1999, first he knew of CAD Obesity, unspecified 03/30/2017 Overview: Max weight 260fall documented as of this encounter (statuses as of 12/20/2022) [facility] Narrative* Problem Noted Date Resolved Date Pure hypercholesterolemia 04/20/20192022 Obesity (BMI 30.0-34.9) 03/30/2017 10/20/19 19 Coronary atherosclerosis of unspecified type of vessel, marshall or graft 04/19/2019 Overview: s/p CABG 1999, first he knew of CAD Obesity, unspecified 03/30/2017 Overview: Max weight 260fall documented as of this encounter (statuses as of 01/03/2023) [facility] Narrative* Problem Noted Date Resolved Date Pure hypercholesterolemia 04/20/20192022 Obesity (BMI 30.0-34.9) 03/30/2017 10/20/19 19 Coronary atherosclerosis of unspecified type of vessel, marshall or graft 04/19/2019 Overview: s/p CABG 1999, first he knew of CAD Obesity, unspecified 03/30/2017 Overview: Max weight 260fall documented as of this encounter (statuses as of 01/06/2023) [facility]arrative* Problem Noted Date Resolved Date Pure hypercholesterolemia 04/20/2019 02/13/ 2023 Obesity (BMI 30.0-34.9) 03/30/2017 10/20/19 19 Coronary atherosclerosis of unspecified type of vessel, marshall or graft 04/19/2019 Overview: s/p CABG 2000, first he knew of CAD Obesity, unspecified 03/30/2017 Overview: Max weight 260fall documented as of this encounter (statuses as of 01/21/2023) [facility]arrative* Problem Noted Date Resolved Date Pure hypercholesterolemia 04/20/20192022 Obesity (BMI 30.0-34.9) 03/30/2017 10/20/19 19 Coronary atherosclerosis of unspecified type of vessel, marshall or graft 04/19/2019 Overview: s/p CABG 1999, first he knew of CAD Obesity, unspecified 03/30/2017 Overview: Max weight 260fall documented as of this encounter (statuses as of 01/25/2023) [facility]arrative* Problem Noted Date Resolved Date Pure hypercholesterolemia 04/20/20192022 Obesity (BMI 30.0-34.9) 03/30/2017 10/20/19 19 Coronary atherosclerosis of unspecified type of vessel, marshall or graft 04/19/2019 Overview: s/p CABG 1999, first he knew of CAD Obesity, unspecified 03/30/2017 Overview: Max weight 260fall documented as of this encounter (statuses as of 02/08/2023) [facility]arrative* Problem Noted Date Resolved Date Pure hypercholesterolemia 04/20/20192022 Obesity (BMI 30.0-34.9) 03/30/2017 10/20/19 19 Coronary atherosclerosis of unspecified type of vessel, marshall or graft 04/19/2019 Overview: s/p CABG 1999, first he knew of CAD Obesity, unspecified 03/30/2017 Overview: Max weight 260fall documented as of this encounter (statuses as of 02/09/2023) [facility]arrative* Problem Noted Date Resolved Date Pure hypercholesterolemia 04/20/20192022 Obesity (BMI 30.0-34.9) 03/30/2017 10/20/19 19 Coronary atherosclerosis of unspecified type of vessel, marshall or graft 04/19/2019 Overview: s/p CABG 1999, first he knew of CAD Obesity, unspecified 03/30/2017 Overview: Max weight 260fall documented as of this encounter (statuses as of 02/25/2023) [facility]arrative* Problem Noted Date Resolved Date Pure hypercholesterolemia 04/20/20192022 Obesity (BMI 30.0-34.9) 03/30/2017 10/20/19 19 Coronary atherosclerosis of unspecified type of vessel, marshall or graft 04/19/2019 Overview: s/p CABG 1999, first he knew of CAD Obesity, unspecified 03/30/2017 Overview: Max weight 260fall documented as of this encounter (statuses as of 03/08/2023) [facility]arrative* Problem Noted Date Resolved Date Pure hypercholesterolemia 04/20/20192022 Obesity (BMI 30.0-34.9) 03/30/2017 10/20/19 19 Coronary atherosclerosis of unspecified type of vessel, marshall or graft 04/19/2019 Overview: s/p CABG 1999, first he knew of CAD Obesity, unspecified 03/30/2017 Overview: Max weight 260fall documented as of this encounter (statuses as of 03/09/2023) [facility]arrative* Problem Noted Date Resolved Date Pure hypercholesterolemia 04/20/20192022 Obesity (BMI 30.0-34.9) 03/30/2017 10/20/19 19 Coronary atherosclerosis of unspecified type of vessel, marshall or graft 04/19/2019 Overview: s/p CABG 2000, first he knew of CAD Obesity, unspecified 03/30/2017 Overview: Max weight 260fall documented as of this encounter (statuses as of 03/15/2023) [facility]arrative* Problem Noted Date Resolved Date Pure hypercholesterolemia 04/20/20192022 Obesity (BMI 30.0-34.9) 03/30/2017 10/20/19 19 Coronary atherosclerosis of unspecified type of vessel, marshall or graft 04/19/2019 Overview: s/p CABG 1999, first he knew of CAD Obesity, unspecified 03/30/2017 Overview: Max weight 260fall documented as of this encounter (statuses as of 03/18/2023) [facility]arrative* Problem Noted Date Resolved Date Pure hypercholesterolemia 04/20/20192022 Obesity (BMI 30.0-34.9) 03/30/2017 10/20/19 19 Coronary atherosclerosis of unspecified type of vessel, marshall or graft 04/19/2019 Overview: s/p CABG 1999, first he knew of CAD Obesity, unspecified 03/30/2017 Overview: Max weight 260fall documented as of this encounter (statuses as of 03/18/2023) [facility]arr[facility]* Problem Noted Date Resolved Date Pure hypercholesterolemia 04/20/20192022 Obesity (BMI 30.0-34.9) 03/30/2017 10/20/19 19 Coronary atherosclerosis of unspecified type of vessel, marshall or graft 04/19/2019 Overview: s/p CABG 1999, first he knew of CAD Obesity, unspecified 03/30/2017 Overview: Max weight 260fall documented as of this encounter (statuses as of 03/18/2023) [facility]* Problem Noted Date Diagnosed Date Resolved Date Pure hypercholesterolemia 04/20/2019 Obesity (BMI 30.0-34.9) 03/30/201704/2019 Coronary atherosclerosis of unspecified type of vessel, marshall or graft 04/19/2019 Overview: s/p CABG 1999, first he knew of CAD Obesity, unspecified 017 Overview: Max weight 260fall documented as of this encounter (statuses as of 03/22/2023) [facility]* Problem Noted Date Diagnosed Date Resolved Date Pure hypercholesterolemia 04/20/2019 Obesity (BMI 30.0-34.9) 03/30/201704/2019 Coronary atherosclerosis of unspecified type of vessel, marshall or graft 04/19/2019 Overview: s/p CABG 1999, first he knew of CAD Obesity, unspecified 017 Overview: Max weight 260fall documented as of this encounter (statuses as of 03/25/2023) [facility]* Problem Noted Date Diagnosed Date Resolved Date Pure hypercholesterolemia 04/20/2019 Obesity (BMI 30.0-34.9) 03/30/201704/2019 Coronary atherosclerosis of unspecified type of vessel, marshall or graft 04/19/2019 Overview: s/p CABG 1999, first he knew of CAD Obesity, unspecified 017 Overview: Max weight 260fall documented as of this encounter (statuses as of 04/11/2023) [facility]* Problem Noted Date Diagnosed Date Resolved Date Pure hypercholesterolemia 04/20/2019 Obesity (BMI 30.0-34.9) 03/30/201704/2019 Coronary atherosclerosis of unspecified type of vessel, marshall or graft 04/19/2019 Overview: s/p CABG 1999, first he knew of CAD Obesity, unspecified 017 Overview: Max weight 260fall documented as of this encounter (statuses as of 04/12/2023) [facility]* Problem Noted Date Diagnosed Date Resolved Date Pure hypercholesterolemia 04/20/2019 Obesity (BMI 30.0-34.9) 03/30/201704/2019 Coronary atherosclerosis of unspecified type of vessel, marshall or graft 04/19/2019 Overview: s/p CABG 1999, first he knew of CAD Obesity, unspecified 017 Overview: Max weight 260fall documented as of this encounter (statuses as of 04/14/2023) [facility]* Problem Noted Date Diagnosed Date Resolved Date Pure hypercholesterolemia 04/20/2019 Obesity (BMI 30.0-34.9) 03/30/201704/2019 Coronary atherosclerosis of unspecified type of vessel, marshall or graft 04/19/2019 Overview: s/p CABG 1999, first he knew of CAD Obesity, unspecified 017 Overview: Max weight 260fall documented as of this encounter (statuses as of 04/20/2023) [facility]* Problem Noted Date Diagnosed Date Resolved Date Pure hypercholesterolemia 04/20/2019 Obesity (BMI 30.0-34.9) 03/30/201704/2019 Coronary atherosclerosis of unspecified type of vessel, marshall or graft 04/19/2019 Overview: s/p CABG 1999, first he knew of CAD Obesity, unspecified 017 Overview: Max weight 260fall documented as of this encounter (statuses as of 04/26/2023) [facility]* Problem Noted Date Diagnosed Date Resolved Date Pure hypercholesterolemia 04/20/2019 Obesity (BMI 30.0-34.9) 03/30/20170 04/2019 Coronary atherosclerosis of unspecified type of vessel, marshall or graft 04/19/2019 Overview: s/p CABG 1999, first he knew of CAD Obesity, unspecified 017 Overview: Max weight 260fall documented as of this encounter (statuses as of 04/28/2023) [facility]* Problem Noted Date Diagnosed Date Resolved Date Pure hypercholesterolemia 04/20/2019 Obesity (BMI 30.0-34.9) 03/30/20170 04/2019 Coronary atherosclerosis of unspecified type of vessel, marshall or graft 04/19/2019 Overview: s/p CABG 1999, first he knew of CAD Obesity, unspecified 017 Overview: Max weight 260fall documented as of this encounter (statuses as of 05/03/2023) [facility]* Problem Noted Date Diagnosed Date Resolved Date Pure hypercholesterolemia 04/20/2019 Obesity (BMI 30.0-34.9) 03/30/20170 04/2019 Coronary atherosclerosis of unspecified type of vessel, marshall or graft 04/19/2019 Overview: s/p CABG 1999, first he knew of CAD Obesity, unspecified 017 Overview: Max weight 260fall documented as of this encounter (statuses as of 05/31/2023) [facility]* Problem Noted Date Diagnosed Date Resolved Date Pure hypercholesterolemia 04/20/2019 Obesity (BMI 30.0-34.9) 03/30/201704/2019 Coronary atherosclerosis of unspecified type of vessel, marshall or graft 04/19/2019 Overview: s/p CABG 1999, first he knew of CAD Obesity, unspecified 017 Overview: Max weight 260, fall 2006 documented as of this encounter (statuses as of 06/29/2023) [facility]* Problem Noted Date Diagnosed Date Resolved Date Pure hypercholesterolemia 04/20/2019 Obesity (BMI 30.0-34.9) 03/30/201704/2019 Coronary atherosclerosis of unspecified type of vessel, marshall or graft 04/19/2019 Overview: s/p CABG 1999, first he knew of CAD Obesity, unspecified 017 Overview: Max weight 260, fall 2006 documented as of this encounter (statuses as of 07/20/2023) [facility]* Problem Noted Date Diagnosed Date Resolved Date Pure hypercholesterolemia 04/20/2019 Obesity (BMI 30.0-34.9) 03/30/201704/2019 Coronary atherosclerosis of unspecified type of vessel, marshall or graft 04/19/2019 Overview: s/p CABG 1999, first he knew of CAD Obesity, unspecified 017 Overview: Max weight 260fall documented as of this encounter (statuses as of 07/21/2023) [facility]* Problem Noted Date Resolved Date Obesity (BMI 30.0-34.9) 03/30/2017 10/20/19 Coronary atherosclerosis of unspecified type of vessel, marshall or graft 04/19/2019 Overview: s/p CABG 1999, first he knew of CAD Obesity, unspecified 03/30/2017 Overview: Max weight 260fall documented as of this encounter (statuses as of 12/12/2021) [facility]* Problem Noted Date Resolved Date Obesity (BMI 30.0-34.9) 03/30/2017 10/20/19 19 Coronary atherosclerosis of unspecified type of vessel, marshall or graft 04/19/2019 Overview: s/p CABG 1999, first he knew of CAD Obesity, unspecified 03/30/2017 Overview: Max weight 260fall documented as of this encounter (statuses as of 12/12/2021) [facility]* Problem Noted Date Resolved Date Obesity (BMI 30.0-34.9) 03/30/2017 10/20/19 Coronary atherosclerosis of unspecified type of vessel, marshall or graft 04/19/2019 Overview: s/p CABG 1999, first he knew of CAD Obesity, unspecified 03/30/2017 Overview: Max weight 260, fall 2006 documented as of this encounter (statuses as of 12/16/2021) [facility]* Problem Noted Date Resolved Date Obesity (BMI 30.0-34.9) 03/30/2017 10/20/19 19 Coronary atherosclerosis of unspecified type of vessel, marshall or graft 04/19/2019 Overview: s/p CABG 1999, first he knew of CAD Obesity, unspecified 03/30/2017 Overview: Max weight 260fall documented as of this encounter (statuses as of 12/17/2021) [facility]* Problem Noted Date Resolved Date Obesity (BMI 30.0-34.9) 03/30/2017 10/20/19 19 Coronary atherosclerosis of unspecified type of vessel, marshall or graft 04/19/2019 Overview: s/p CABG 1999, first he knew of CAD Obesity, unspecified 03/30/2017 Overview: Max weight 260fall documented as of this encounter (statuses as of 12/21/2021) [facility]* Problem Noted Date Resolved Date Obesity (BMI 30.0-34.9) 03/30/2017 10/20/19 Coronary atherosclerosis of unspecified type of vessel, marshall or graft 04/19/2019 Overview: s/p CABG 2000, first he knew of CAD Obesity, unspecified 03/30/2017 Overview: Max weight 260fall documented as of this encounter (statuses as of 12/23/2021) [facility]* Problem Noted Date Resolved Date Obesity (BMI 30.0-34.9) 03/30/2017 10/20/19 19 Coronary atherosclerosis of unspecified type of vessel, marshall or graft 04/19/2019 Overview: s/p CABG 1999, first he knew of CAD Obesity, unspecified 03/30/2017 Overview: Max weight 260, fall 2006 documented as of this encounter (statuses as of 01/04/2022) [facility]* Problem Noted Date Resolved Date Obesity (BMI 30.0-34.9) 03/30/2017 10/20/19 19 Coronary atherosclerosis of unspecified type of vessel, marshall or graft 04/19/2019 Overview: s/p CABG 1999, first he knew of CAD Obesity, unspecified 03/30/2017 Overview: Max weight 260fall documented as of this encounter (statuses as of 01/04/2022) [facility] History of Past illness Narrative* Problem Noted Date Resolved Date Obesity (BMI 30.0-34.9) 03/30/2017 10/20/19 19 Coronary atherosclerosis of unspecified type of vessel, marshall or graft 04/19/2019 Overview: s/p CABG 2000, first he knew of CAD Obesity, unspecified 03/30/2017 Overview: Max weight 260fall documented as of this encounter (statuses as of 02/01/2022) [facility] History of Past illness Narrative* Problem Noted Date Resolved Date Obesity (BMI 30.0-34.9) 03/30/2017 10/20/19 Coronary atherosclerosis of unspecified type of vessel, marshall or graft 04/19/2019 Overview: s/p CABG 2000, first he knew of CAD Obesity, unspecified 03/30/2017 Overview: Max weight 260fall documented as of this encounter (statuses as of 02/11/2022) [facility] History of Past illness Narrative* Problem Noted Date Resolved Date Obesity (BMI 30.0-34.9) 03/30/2017 10/20/19 19 Coronary atherosclerosis of unspecified type of vessel, marshall or graft 04/19/2019 Overview: s/p CABG 2000, first he knew of CAD Obesity, unspecified 03/30/2017 Overview: Max weight 260fall documented as of this encounter (statuses as of 02/12/2022) [facility] History of Past illness Narrative* Problem Noted Date Resolved Date Obesity (BMI 30.0-34.9) 03/30/2017 10/20/19 19 Coronary atherosclerosis of unspecified type of vessel, marshall or graft 04/19/2019 Overview: s/p CABG 1999, first he knew of CAD Obesity, unspecified 03/30/2017 Overview: Max weight 260fall documented as of this encounter (statuses as of 02/18/2022) [facility] History of Past illness Narrative* Problem Noted Date Resolved Date Obesity (BMI 30.0-34.9) 03/30/2017 02/08/20 19 Coronary atherosclerosis of unspecified type of vessel, marshall or graft 04/19/2019 Overview: s/p CABG 2000, first he knew of CAD Obesity, unspecified 03/30/2017 Overview: Max weight 260fall documented as of this encounter (statuses as of 03/12/2022) [facility] History of Past illness Narrative* Problem Noted Date Resolved Date Obesity (BMI 30.0-34.9) 03/30/2017 10/20/19 Coronary atherosclerosis of unspecified type of vessel, marshall or graft 04/19/2019 Overview: s/p CABG 2000, first he knew of CAD Obesity, unspecified 03/30/2017 Overview: Max weight 260fall documented as of this encounter (statuses as of 04/09/2022) [facility] History of Past illness Narrative* Problem Noted Date Resolved Date Obesity (BMI 30.0-34.9) 03/30/2017 10/20/19 19 Coronary atherosclerosis of unspecified type of vessel, marshall or graft 04/19/2019 Overview: s/p CABG 1999, first he knew of CAD Obesity, unspecified 03/30/2017 Overview: Max weight 260fall documented as of this encounter (statuses as of 04/12/2022) [facility] History of Past illness Narrative* Problem Noted Date Resolved Date Obesity (BMI 30.0-34.9) 03/30/2017 10/20/19 19 Coronary atherosclerosis of unspecified type of vessel, marshall or graft 04/19/2019 Overview: s/p CABG 1999, first he knew of CAD Obesity, unspecified 03/30/2017 Overview: Max weight 260fall documented as of this encounter (statuses as of 04/14/2022) [facility] History of Past illness Narrative* Problem Noted Date Resolved Date Obesity (BMI 30.0-34.9) 03/30/2017 10/20/19 19 Coronary atherosclerosis of unspecified type of vessel, marshall or graft 04/19/2019 Overview: s/p CABG 2000, first he knew of CAD Obesity, unspecified 03/30/2017 Overview: Max weight 260fall documented as of this encounter (statuses as of 04/19/2022) [facility] History of Past illness Narrative* Problem Noted Date Resolved Date Obesity (BMI 30.0-34.9) 03/30/2017 10/20/19 Coronary atherosclerosis of unspecified type of vessel, marshall or graft 04/19/2019 Overview: s/p CABG 2000, first he knew of CAD Obesity, unspecified 03/30/2017 Overview: Max weight 260fall documented as of this encounter (statuses as of 04/20/2022) [facility] History of Past illness Narrative* Problem Noted Date Resolved Date Obesity (BMI 30.0-34.9) 03/30/2017 10/20/19 19 Coronary atherosclerosis of unspecified type of vessel, marshall or graft 04/19/2019 Overview: s/p CABG 1999, first he knew of CAD Obesity, unspecified 03/30/2017 Overview: Max weight 260fall documented as of this encounter (statuses as of 04/26/2022) [facility] History of Past illness Narrative* Problem Noted Date Resolved Date Obesity (BMI 30.0-34.9) 03/30/2017 10/20/19 19 Coronary atherosclerosis of unspecified type of vessel, marshall or graft 04/19/2019 Overview: s/p CABG 1999, first he knew of CAD Obesity, unspecified 03/30/2017 Overview: Max weight 260fall documented as of this encounter (statuses as of 05/04/2022) [facility] History of Past illness Narrative* Problem Noted Date Resolved Date Obesity (BMI 30.0-34.9) 03/30/2017 10/20/19 Coronary atherosclerosis of unspecified type of vessel, marshall or graft 04/19/2019 Overview: s/p CABG 2000, first he knew of CAD Obesity, unspecified 03/30/2017 Overview: Max weight 260fall documented as of this encounter (statuses as of 05/11/2022) [facility] History of Past illness Narrative* Problem Noted Date Resolved Date Obesity (BMI 30.0-34.9) 03/30/2017 10/20/19 19 Coronary atherosclerosis of unspecified type of vessel, marshall or graft 04/19/2019 Overview: s/p CABG 2000, first he knew of CAD Obesity, unspecified 03/30/2017 Overview: Max weight 260fall documented as of this encounter (statuses as of 05/20/2022) [facility] History of Past illness Narrative* Problem Noted Date Resolved Date Obesity (BMI 30.0-34.9) 03/30/2017 10/20/19 19 Coronary atherosclerosis of unspecified type of vessel, marshall or graft 04/19/2019 Overview: s/p CABG 1999, first he knew of CAD Obesity, unspecified 03/30/2017 Overview: Max weight 260fall documented as of this encounter (statuses as of 05/25/2022) [facility] History of Past illness Narrative* Problem Noted Date Resolved Date Obesity (BMI 30.0-34.9) 03/30/2017 10/20/19 19 Coronary atherosclerosis of unspecified type of vessel, marshall or graft 04/19/2019 Overview: s/p CABG 2000, first he knew of CAD Obesity, unspecified 03/30/2017 Overview: Max weight 260fall documented as of this encounter (statuses as of 06/08/2022) [facility] History of Past illness Narrative* Problem Noted Date Resolved Date Obesity (BMI 30.0-34.9) 03/30/2017 10/20/19 Coronary atherosclerosis of unspecified type of vessel, marshall or graft 04/19/2019 Overview: s/p CABG 1999, first he knew of CAD Obesity, unspecified 03/30/2017 Overview: Max weight 260fall documented as of this encounter (statuses as of 06/09/2022) [facility] History of Past illness Narrative* Problem Noted Date Resolved Date Obesity (BMI 30.0-34.9) 03/30/2017 10/20/19 Coronary atherosclerosis of unspecified type of vessel, marshall or graft 04/19/2019 Overview: s/p CABG 1999, first he knew of CAD Obesity, unspecified 03/30/2017 Overview: Max weight 260fall documented as of this encounter (statuses as of 06/14/2022) [facility] History of Past illness Narrative* Problem Noted Date Resolved Date Obesity (BMI 30.0-34.9) 03/30/2017 10/20/19 19 Coronary atherosclerosis of unspecified type of vessel, marshall or graft 04/19/2019 Overview: s/p CABG 1999, first he knew of CAD Obesity, unspecified 03/30/2017 Overview: Max weight 260fall documented as of this encounter (statuses as of 06/16/2022) [facility] History of Past illness Narrative* Problem Noted Date Resolved Date Obesity (BMI 30.0-34.9) 03/30/2017 10/20/19 19 Coronary atherosclerosis of unspecified type of vessel, marshall or graft 04/19/2019 Overview: s/p CABG 1999, first he knew of CAD Obesity, unspecified 03/30/2017 Overview: Max weight 260, fall 2007 documented as of this encounter (statuses as of 06/17/2022) [facility] History of Past illness Narrative* Problem Noted Date Resolved Date Obesity (BMI 30.0-34.9) 03/30/2017 10/20/19 19 Coronary atherosclerosis of unspecified type of vessel, marshall or graft 04/19/2019 Overview: s/p CABG 2000, first he knew of CAD Obesity, unspecified 03/30/2017 Overview: Max weight 260fall documented as of this encounter (statuses as of 06/22/2022) [facility] History of Past illness Narrative* Problem Noted Date Resolved Date Obesity (BMI 30.0-34.9) 03/30/2017 10/20/19 19 Coronary atherosclerosis of unspecified type of vessel, marshall or graft 04/19/2019 Overview: s/p CABG 1999, first he knew of CAD Obesity, unspecified 03/30/2017 Overview: Max weight 260, fall 2006 documented as of this encounter (statuses as of 06/24/2022) [facility] History of Past illness Narrative* Problem Noted Date Resolved Date Obesity (BMI 30.0-34.9) 03/30/2017 10/20/19 19 Coronary atherosclerosis of unspecified type of vessel, marshall or graft 04/19/2019 Overview: s/p CABG 1999, first he knew of CAD Obesity, unspecified 03/30/2017 Overview: Max weight 260fall documented as of this encounter (statuses as of 06/25/2022) [facility] History of Past illness Narrative* Problem Noted Date Resolved Date Obesity (BMI 30.0-34.9) 03/30/2017 10/20/19 19 Coronary atherosclerosis of unspecified type of vessel, marshall or graft 04/19/2019 Overview: s/p CABG 1999, first he knew of CAD Obesity, unspecified 03/30/2017 Overview: Max weight 260fall documented as of this encounter (statuses as of 06/28/2022) [facility] History of Past illness Narrative* Problem Noted Date Resolved Date Obesity (BMI 30.0-34.9) 03/30/2017 10/20/19 19 Coronary atherosclerosis of unspecified type of vessel, marshall or graft 04/19/2019 Overview: s/p CABG 1999, first he knew of CAD Obesity, unspecified 03/30/2017 Overview: Max weight 260fall documented as of this encounter (statuses as of 07/21/2022) [facility] History of Past illness Narrative* Problem Noted Date Resolved Date Obesity (BMI 30.0-34.9) 03/30/2017 10/20/19 Coronary atherosclerosis of unspecified type of vessel, marshall or graft 04/19/2019 Overview: s/p CABG 1999, first he knew of CAD Obesity, unspecified 03/30/2017 Overview: Max weight 260fall documented as of this encounter (statuses as of 07/22/2022) [facility] History of Past illness Narrative* Problem Noted Date Resolved Date Obesity (BMI 30.0-34.9) 03/30/2017 10/20/19 Coronary atherosclerosis of unspecified type of vessel, marshall or graft 04/19/2019 Overview: s/p CABG 1999, first he knew of CAD Obesity, unspecified 03/30/2017 Overview: Max weight 260fall documented as of this encounter (statuses as of 07/29/2022) [facility] History of Past illness Narrative* Problem Noted Date Resolved Date Obesity (BMI 30.0-34.9) 03/30/2017 10/20/19 Coronary atherosclerosis of unspecified type of vessel, marshall or graft 04/19/2019 Overview: s/p CABG 1999, first he knew of CAD Obesity, unspecified 03/30/2017 Overview: Max weight 260fall documented as of this encounter (statuses as of 09/15/2022) [facility] History of Past illness Narrative* Problem Noted Date Resolved Date Obesity (BMI 30.0-34.9) 03/30/2017 10/20/19 Coronary atherosclerosis of unspecified type of vessel, marshall or graft 04/19/2019 Overview: s/p CABG 1999, first he knew of CAD Obesity, unspecified 03/30/2017 Overview: Max weight 260fall documented as of this encounter (statuses as of 09/15/2022) [facility] History of Past illness Narrative* Problem Noted Date Resolved Date Obesity (BMI 30.0-34.9) 03/30/2017 10/20/19 Coronary atherosclerosis of unspecified type of vessel, marshall or graft 04/19/2019 Overview: s/p CABG 1999, first he knew of CAD Obesity, unspecified 03/30/2017 Overview: Max weight 260, fall 2006 documented as of this encounter (statuses as of 09/16/2022) [facility] History of Past illness Narrative* Problem Noted Date Resolved Date Obesity (BMI 30.0-34.9) 03/30/2017 10/20/19 Coronary atherosclerosis of unspecified type of vessel, marshall or graft 04/19/2019 Overview: s/p CABG 1999, first he knew of CAD Obesity, unspecified 03/30/2017 Overview: Max weight 260fall documented as of this encounter (statuses as of 10/07/2022) [facility] History of Past illness Narrative* Problem Noted Date Resolved Date Obesity (BMI 30.0-34.9) 03/30/2017 10/20/19 19 Coronary atherosclerosis of unspecified type of vessel, marshall or graft 04/19/2019 Overview: s/p CABG 1999, first he knew of CAD Obesity, unspecified 03/30/2017 Overview: Max weight 260, fall 2006 documented as of this encounter (statuses as of 10/08/2022) [facility] History of Past illness Narrative* Problem Noted Date Resolved Date Obesity (BMI 30.0-34.9) 03/30/2017 10/20/19 Coronary atherosclerosis of unspecified type of vessel, marshall or graft 04/19/2019 Overview: s/p CABG 1999, first he knew of CAD Obesity, unspecified 03/30/2017 Overview: Max weight 260, fall 2006 documented as of this encounter (statuses as of 10/11/2022) [facility] Diagnosis Abnormal electrocardiogram Nonspecific abnormal electrocardiogram (ECG) (EKG) [facility] Diagnosis Essential hypertension- Primary Unspecified essential hypertension [facility] Diagnosis Benign nodular prostatic hyperplasia without lower urinary tract symptoms [facility] Diagnosis Essential hypertension- Primary Unspecified essential hypertension [facility] Diagnosis SOB (shortness of breath)- Primary Shortness of breath Hypothyroidism, unspecified type Essential hypertension Unspecified essential hypertension Pure hypercholesterolemia PAD (peripheral artery disease) (HCC) Peripheral vascular disease, unspecified IFG (impaired fasting glucose) Impaired fasting glucose Vitamin D deficiency Unspecified vitamin D deficiency Obesity, Class I, BMI 30-34.9 Obesity, unspecified [facility] Diagnosis SOB (shortness of breath) Shortness of breath [facility] Diagnosis Restrictive airway disease- Primary Other diseases of lung, not elsewhere classified [facility] Diagnosis Abnormal stress test- Primary Other nonspecific abnormal cardiovascular system function study Coronary artery disease involving marshall coronary artery of marshall heart without angina pectoris S/P CABG x 3 Postsurgical aortocoronary bypass status Essential hypertension Unspecified essential hypertension Mixed hyperlipidemia [facility] Diagnosis Hypothyroidism, unspecified type- Primary Restrictive [...] uncomplicated Unspecified asthma [facility] Diagnosis Primary osteoarthritis of both knees- Primary Primary localized osteoarthrosis, lower leg [facility] Diagnosis Bilateral carotid artery stenosis- Primary Occlusion and stenosis of carotid artery without mention of cerebral infarction Peripheral vascular disease (HCC) Peripheral vascular disease, unspecified [facility] Diagnosis Primary osteoarthritis of both knees- Primary Primary localized osteoarthrosis, lower leg [facility] Diagnosis Numbness and tingling of foot- [...] of both knees [facility] Diagnosis Essential hypertension Unspecified essential hypertension [facility] Diagnosis Coronary artery disease involving marshall coronary artery of marshall heart without angina pectoris- Primary Hx of CABG Postsurgical aortocoronary bypass status Essential hypertension Unspecified essential hypertension Hyperlipidemia LDL goal <70 Other and unspecified hyperlipidemia [facility] Diagnosis Benign nodular prostatic hyperplasia without lower urinary tract symptoms Screening for prostate cancer Special screening for malignant neoplasm of prostate [facility] Diagnosis Hereditary and idiopathic peripheral neuropathy- Primary Unspecified hereditary and idiopathic peripheral neuropathy PAD (peripheral artery disease) (HCC) Peripheral vascular disease, unspecified Hypothyroidism, unspecified type Essential hypertension Unspecified essential hypertension Mixed hyperlipidemia Screening for prostate cancer Special screening for malignant neoplasm of prostate Benign nodular prostatic hyperplasia without lower urinary tract symptoms Chronic obstructive pulmonary disease, unspecified COPD type (HCC) IFG (impaired fasting glucose) Impaired fasting glucose [facility] Diagnosis Screening for nephropathy- Primary Bilateral carotid artery stenosis Occlusion and stenosis of carotid artery without mention of cerebral infarction Peripheral vascular disease (HCC) Peripheral vascular disease, unspecified [facility] Bilateral leg edema- Primary Edema [facility] Diagnosis Localized swelling of both lower legs- Primary SOB (shortness of breath) Shortness of breath [facility] Diagnosis Localized swelling of both lower legs- Primary [facility] Diagnosis Localized swelling of both lower legs SOB (shortness of breath) Shortness of breath [facility] Diagnosis Pain in both knees, unspecified chronicity- Primary [facility] Diagnosis Primary osteoarthritis of both knees- Primary Primary localized osteoarthrosis, lower leg Chronic pain of both knees Chondrocalcinosis of knee, unspecified laterality [facility] Diagnosis Coronary artery disease involving marshall coronary artery of marshall heart without angina pectoris- Primary Essential hypertension Unspecified essential hypertension Hyperlipidemia LDL goal <70 Other and unspecified hyperlipidemia S/P CABG x 3 Postsurgical aortocoronary bypass status PAD (peripheral artery disease) ([facility]) Peripheral vascular disease, unspecified Bilateral carotid artery stenosis Occlusion and stenosis of carotid artery without mention of cerebral infarction Hyperkalemia Hyperpotassemia [facility] Diagnosis Hereditary and idiopathic peripheral neuropathy- Primary Unspecified hereditary and idiopathic peripheral neuropathy Dizziness Dizziness and giddiness PAD (peripheral artery disease) ([facility]) Peripheral vascular disease, unspecified Hypothyroidism, unspecified type Essential hypertension Unspecified essential hypertension Bilateral calf pain Pain in limb Mixed hyperlipidemia [facility] Diagnosis Procedure not carried out- Primary Procedure not carried out for other reasons [facility] Diagnosis SOB (shortness of breath)- Primary Shortness of breath Exercise hypoxemia Hypoxemia Sinus congestion Other diseases of nasal cavity and sinuses [facility] Diagnosis SOB (shortness of breath) Shortness of breath [facility] Diagnosis Moderate COPD (chronic obstructive pulmonary disease) ([facility])- Primary Chronic airway obstruction, not elsewhere classified Hypoxemia Former smoker Personal history of tobacco use, presenting hazards to health Need for influenza vaccination Need for prophylactic vaccination and inoculation against influenza [facility] Diagnosis SDH (subdural hematoma) (HCC)- Primary Subdural hemorrhage documented in this encounter [facility] for referral (narrative)* Diagnostic Procedure Only (Routine) - Closed Specialty Diagnoses / Procedures [facility] To [facility] Diagnoses Abnormal electrocardiogram Procedures NM CARDIAC PERF STRESS/PHARM MYOCARDIAL SPECT MULTIPLE STUDIES Gideon Bueno DO [address] [place] [address] Molecular & Functional Imaging [address] [place] [address] Referral ID Status Reason Start Date Expiration Date V isits Requested Visits Authorized [id number] Closed Auto-Generate d Referral 11/30/2021 12/30/2022 1 1 [facility] for referral (narrative)* Outpatient Procedure (Routine) - Authorized Specialty Diagnoses / Procedures [facility] Diagnoses SOB (shortness of breath) Procedures SPIROMETRY - BASELINE AND POST DILATOR BRNCDILAT RSPSE SPMTRY PRE&POST-BRNCDILAT ADMN Husam Deras DO [address] [id number] [address] [place] [id number] Referral ID Status Reason Start Date Expiration Date Visits Requested Visits Authorized [id number] Authorized Auto-Generat ed Referral 02/01/2022 03/03/2023 1 1 * Outpatient Procedure (Routine) - Authorized Specialty Diagnoses / Procedures [facility] Diagnoses SOB (shortness of breath) Procedures ECHO ECHO TTHRC R-T 2D W/WOM-MODE COMPL SPEC&COLR D Husam Deras DO [address] [place] [address] [address] [address] [place] [id number] Referral ID Status Reason Start Date Expiration Date Visits Requested Visits Authorized [id number] Authorized Auto-Generat ed Referral 02/01/2022 02/01/2023 1 1 [facility] for referral (narrative)* Outpatient Procedure (Routine) - Pending Review Specialty Diagnoses / Procedures Referred By Contac t Referred To Contact [facility] Diagnoses Bilateral carotid artery stenosis Procedures US CAROTID ARTERIES [facility] DUPLEX SCAN EXTRACRANIAL ART COMPL BI STUDY Mena Machuca, DO [id number] [place] [address] Referral ID Status Reason Start Date Expiration Date Visits Requested Visits Authorized [id number] Pending Review Auto-Generat ed Referral 2 06/16/2023 1 1 * Outpatient Procedure (Routine) - Pending Review Specialty Diagnoses / Procedures Referred By Cont[facility] t Referred To Contact [facility] Diagnoses Peripheral vascular disease (HCC) Procedures PVR ANK/COOK/TOE [facility] NON-INVAS PHYSIOLOGIC STD EXTREMITY ART 2 LEVEL Mena Machuca, DO [id number] [place] [address] Referral ID Status Reason Start Date Expiration Date Visits Requested Visits Authorized [id number] Pending Review Auto-Generat ed Referral 2 06/16/2023 1 1 [facility] for referral (narrative)* Outpatient Procedure (Routine) - Authorized Specialty Diagnoses / Procedures Referred By Contac t Referred To [facility] Diagnoses Peripheral vascular disease (HCC) Procedures PVR LEG W/EXC [facility] N-INVAS PHYSIOLOGIC STD LXTR ART COMPL BI Mena Machuca, DO [address] [place] [address] [address] [place] [address] Referral ID Status Reason Start Date Expiration Date Visits Requested Visits Authorized [id number] Authorized Auto-Generat ed Referral 03/08/2023 03/07/2024 1 1 * Outpatient Procedure (Routine) - Authorized Specialty Diagnoses / Procedures Referred By Contac t Referred To Contact [facility] [place] Diagnoses Bilateral carotid artery stenosis Procedures US CAROTID ARTERIES [facility] DUPLEX SCAN EXTRACRANIAL [place] [address] [place] [address] [facility] [address] [address] Referral ID Status Reason Start Date Expiration Date Visits Requested Visits Authorized [id number] Authorized Auto-Generat ed Referral 03/08/2023 03/07/2024 1 1 [facility] for referral (narrative)* Outpatient Procedure (Routine) - Authorized Specialty Diagnoses / Procedures Referred By Contac t Referred To Contact [facility] [place] Diagnoses Localized swelling of both lower legs SOB (shortness of breath) Procedures ECHO ECHO TTHRC R-T 2D W/WOM-MODE COMPL SPEC&COLR D Harvinder Verde APRN.COMMUNITY MANAGER [address] [place] [address] [facility] [address] [address] Referral ID Status Reason Start Date Expiration Date Visits Requested Visits Authorized [id number] Authorized Auto-Generat ed Referral 03/18/2023 03/17/2024 1 1 * Outpatient Procedure (Routine) - Closed Specialty Diagnoses / Procedures Referred By Contac t Referred To Contact [facility] [place] Diagnoses Localized swelling of both lower legs Procedures ECG COMPLETE ECG ROUTINE ECG W/LEAST 12 LDS W/I&R Harvinder Verde APRN.CNP [address] [place] [address] [facility] [address] [place], [place] [id number] Referral ID Status Reason Start Date Expiration Date V isits Requested Visits Authorized [id number] Closed Auto-Generate d Referral 03/18/2023 03/17/2024 1 1 [facility] for referral (narrative)* Diagnostic Procedure Only (Routine) - Pending Review Specialty Diagnoses / Procedures Referred By Adrian ho Referred To Contact XR IMAGING Diagnoses Pain in both knees, unspecified chronicity Procedures XR KNEE GENERAL 4V AP BOTH/PA BOTH/LAT/MERC BILATERAL RADIOLOGIC EXAM KNEE COMPLETE 4/MORE VIEWS Seble Peralta PA-C [address] [place] [address] Xr Imaging Referral ID Status Reason Start Date Expiration Date Visits Requested Visits Authorized [id number] Pending Review Auto-Generat ed Referral 04/13/2023 05/12/2024 1 1 [facility] for referral (narrative)* Outpatient Procedure (Routine) - Authorized Specialty Diagnoses / Procedures Referred By Adrian ho Referred To Contact [facility] Diagnoses Coronary artery disease involving marshall coronary artery of marshall heart without angina pectoris Essential hypertension Hyperlipidemia LDL goal <70 S/P CABG x 3 PAD (peripheral artery disease) (HCC) Bilateral carotid artery stenosis Hyperkalemia Procedures PVR LEG W/EXC [facility] N-INVAS PHYSIOLOGIC STD LXTR ART COMPL BI Gideon Bueno DO [address] [place] [address] [facility] [address] [address] [place] [address] Referral ID Status Reason Start Date Expiration Date Visits Requested Visits Authorized [id number] Authorized Auto-Generat ed Referral 04/26/2023 04/25/2024 1 1 [facility] for referral (narrative)* Outpatient Procedure (Routine) - Authorized Specialty Diagnoses / Procedures [facility] [place] Diagnoses SOB (shortness of breath) Exercise hypoxemia Procedures SIX MINUTE WALK CARDIOPULMONARY EXERCISE STRESS Podlogluz marina, NAZ Monreal [address] [place] [address] [address] Referral ID Status Reason Start Date Expiration Date Visits Requested Visits Authorized [id number] Authorized Auto-Generat ed Referral 07/20/2023 09/11/2023 1 1 [facility] for referral (narrative)* Outpatient Procedure (Routine) - Closed Specialty Diagnoses / Procedures [facility] Referred To Contact [facility] [place] Diagnoses SOB (shortness of breath) Procedures SPIROMETRY WITH DILATOR IF OBSTRUCTED BRNCDILAT RSPSE SPMTRY PRE&POST-BRNCDILAT ADMAurelia Willett MD [address] [place] [address] [address] Referral ID Status Reason Start Date Expiration Date V isits Requested Visits Authorized [id number] Closed Auto-Generate d Referral 07/21/2023 09/11/2023 1 1 * Outpatient Procedure (Routine) - Closed Specialty Diagnoses / Procedures [facility] Referred To Contact [facility] [place] Diagnoses SOB (shortness of breath) Procedures OXIMETRY WITH AMBULATION NONINVASIVE EAR/PULSE OXIMETRY MULTIPLE Aurelia Hyde MD [address] [place] [address] [address] Referral ID Status Reason Start Date Expiration Date V isits Requested Visits Authorized [id number] Closed Auto-Generate d Referral 07/21/2023 09/11/2023 1 1 [facility] for visit Narrative* Diagnostic Procedure Only (Routine) - Closed Specialty Diagnoses / Procedures Referred By Contac t Referred To Contact [facility] Diagnoses Abnormal electrocardiogram Procedures NM CARDIAC PERF STRESS/PHARM MYOCARDIAL SPECT MULTIPLE STUDIES Gideon Bueno DO [address] [place] [address] [facility] [address] [place] [address] Referral ID Status Reason Start Date Expiration Date V isits Requested Visits Authorized [id number] Closed Auto-Generate d Referral 11/30/2021 12/30/2022 1 1 [facility] for visit Narrative* Outpatient Procedure (Routine) - Closed Specialty Diagnoses / Procedures Referred By Contlamar t Referred To Contact [facility] Diagnoses Localized swelling of both lower legs SOB (shortness of breath) Procedures ECHO ECHO TTHRC R-T 2D W/WOM-MODE COMPL SPEC&COLR D Harvinder Verde APRN.[facility] [address] [place] [address] [address] [place] [address] Referral ID Status Reason Start Date Expiration Date V isits Requested Visits Authorized [id number] Closed Auto-Generate d Referral 03/18/2023 03/17/2024 1 1 [facility] Summary Purpose Family History No Family History Records FoundNo Family History Records FoundNo Family History Records FoundNo Family History Records Found Advance Directives No Advanced Directives Records FoundDocuments on File Type Date Recorded Patient Medical Assistant Cardiology Expl anation Advance Directive(s) 03/07/2019 9:42 AM Advance Directive(s) 02/26/2019 11:14 AM Documents on File Type Date Recorded Patient Medical Assistant Cardiology Expl anation Advance Directive(s) 03/07/2019 9:42 AM [...] Referral Specialty Diagnoses / Procedures Referred By Adrian ho Referred To Contact CT IMAGING Diagnoses SDH (subdural hematoma) (HCC) Procedures CT BRAIN WO IVCON CT HEAD/BRAIN W/O CONTRAST MATERIAL Deanna Aguilar, ELENITA [address] [place] [address] [place] [address] Referral ID Status Reason Start Date Expiration Date Visits Requested Visits Authorized [id number] Authorized Auto-Generat ed Referral 3 09/25/2024 1 1 Additional Source Comments (unrecognized sect ion and content) No Status Records FoundNo Status Records FoundNo Status Records FoundNo Status Records Found INFORMATION SOURCE (unrecogn ized section and content) DATE CREATED AUTHOR AUTHOR'S ORGANIZ ATION 04/27/2023 [facility] DATE CREATED AUTHOR AUTHOR'S ORGANIZ ATION 09/12/2023 [facility] DATE CREATED AUTHOR AUTHOR'S ORGANIZ ATION 09/13/2023 [facility] Source Comments (unrecognize d section and content) In the event this informatio n is protected by the Federal Confidentiality of Alcohol and Drug Abuse Patient Records regulations: The Federal rules restrict any use of the information to criminally investigate or prosecute any alcohol or drug abuse patient.[facility] the event this information is protected by the Federal Confidentiality of Alcohol and Drug Abuse Patient Records regulations: The Federal rules restrict any use of the information to criminally investigate or prosecute any alcohol or drug abuse patient.[facility] the event this information is protected by the Federal Confidentiality of Alcohol and Drug Abuse Patient Records regulations: The Federal rules restrict any use of the information to criminally investigate or prosecute any alcohol or drug abuse patient.[facility] the event this information is protected by the Federal Confidentiality of Alcohol and Drug Abuse Patient Records regulations: The Federal rules restrict any use of the information to criminally investigate or prosecute any alcohol or drug abuse patient.[facility] the event this information is protected by the Federal Confidentiality of Alcohol and Drug Abuse Patient Records regulations: The Federal rules restrict any use of the information to criminally investigate or prosecute any alcohol or drug abuse patient.[facility] the event this information is protected by the Federal Confidentiality of Alcohol and Drug Abuse Patient Records regulations: The Federal rules restrict any use of the information to criminally investigate or prosecute any alcohol or drug abuse patient.[facility] the event this information is protected by the Federal Confidentiality of Alcohol and Drug Abuse Patient Records regulations: The Federal rules restrict any use of the information to criminally investigate or prosecute any alcohol or drug abuse patient.[facility] the event this information is protected by the Federal Confidentiality of Alcohol and Drug Abuse Patient Records regulations: The Federal rules restrict any use of the information to criminally investigate or prosecute any alcohol or drug abuse patient.[facility] the event this information is protected by the Federal Confidentiality of Alcohol and Drug Abuse Patient Records regulations: The Federal rules restrict any use of the information to criminally investigate or prosecute any alcohol or drug abuse patient.[facility] the event this information is protected by the Federal Confidentiality of Alcohol and Drug Abuse Patient Records regulations: The Federal rules restrict any use of the information to criminally investigate or prosecute any alcohol or drug abuse patient.[facility] the event this information is protected by the Federal Confidentiality of Alcohol and Drug Abuse Patient Records regulations: The Federal rules restrict any use of the information to criminally investigate or prosecute any alcohol or drug abuse patient.[facility] the event this information is protected by the Federal Confidentiality of Alcohol and Drug Abuse Patient Records regulations: The Federal rules restrict any use of the information to criminally investigate or prosecute any alcohol or drug abuse patient.[facility] the event this information is protected by the Federal Confidentiality of Alcohol and Drug Abuse Patient Records regulations: The Federal rules restrict any use of the information to criminally investigate or prosecute any alcohol or drug abuse patient.[facility] the event this information is protected by the Federal Confidentiality of Alcohol and Drug Abuse Patient Records regulations: The Federal rules restrict any use of the information to criminally investigate or prosecute any alcohol or drug abuse patient.[facility]In the event this information is protected by the Federal Confidentiality of Alcohol and Drug Abuse Patient Records regulations: The Federal rules restrict any use of the information to criminally investigate or prosecute any alcohol or drug abuse patient.[facility]In the event this information is protected by the Federal Confidentiality of Alcohol and Drug Abuse Patient Records regulations: The Federal rules restrict any use of the information to criminally investigate or prosecute any alcohol or drug abuse patient.[facility]In the event this information is protected by the Federal Confidentiality of Alcohol and Drug Abuse Patient Records regulations: The Federal rules restrict any use of the information to criminally investigate or prosecute any alcohol or drug abuse patient.[facility]In the event this information is protected by the Federal Confidentiality of Alcohol and Drug Abuse Patient Records regulations: The Federal rules restrict any use of the information to criminally investigate or prosecute any alcohol or drug abuse patient.[facility]In the event this information is protected by the Federal Confidentiality of Alcohol and Drug Abuse Patient Records regulations: The Federal rules restrict any use of the information to criminally investigate or prosecute any alcohol or drug abuse patient.[facility]In the event this information is protected by the Federal Confidentiality of Alcohol and Drug Abuse Patient Records regulations: The Federal rules restrict any use of the information to criminally investigate or prosecute any alcohol or drug abuse patient.[facility]In the event this information is protected by the Federal Confidentiality of Alcohol and Drug Abuse Patient Records regulations: The Federal rules restrict any use of the information to criminally investigate or prosecute any alcohol or drug abuse patient.[facility]In the event this information is protected by the Federal Confidentiality of Alcohol and Drug Abuse Patient Records regulations: The Federal rules restrict any use of the information to criminally investigate or prosecute any alcohol or drug abuse patient.[facility]In the event this information is protected by the Federal Confidentiality of Alcohol and Drug Abuse Patient Records regulations: The Federal rules restrict any use of the information to criminally investigate or prosecute any alcohol or drug abuse patient.[facility]In the event this information is protected by the Federal Confidentiality of Alcohol and Drug Abuse Patient Records regulations: The Federal rules restrict any use of the information to criminally investigate or prosecute any alcohol or drug abuse patient.[facility]In the event this information is protected by the Federal Confidentiality of Alcohol and Drug Abuse Patient Records regulations: The Federal rules restrict any use of the information to criminally investigate or prosecute any alcohol or drug abuse patient.[facility]In the event this information is protected by the Federal Confidentiality of Alcohol and Drug Abuse Patient Records regulations: The Federal rules restrict any use of the information to criminally investigate or prosecute any alcohol or drug abuse patient.[facility]In the event this information is protected by the Federal Confidentiality of Alcohol and Drug Abuse Patient Records regulations: The Federal rules restrict any use of the information to criminally investigate or prosecute any alcohol or drug abuse patient.[facility]In the event this information is protected by the Federal Confidentiality of Alcohol and Drug Abuse Patient Records regulations: The Federal rules restrict any use of the information to criminally investigate or prosecute any alcohol or drug abuse patient.[facility]In the event this information is protected by the Federal Confidentiality of Alcohol and Drug Abuse Patient Records regulations: The Federal rules restrict any use of the information to criminally investigate or prosecute any alcohol or drug abuse patient.[facility]In the event this information is protected by the Federal Confidentiality of Alcohol and Drug Abuse Patient Records regulations: The Federal rules restrict any use of the information to criminally investigate or prosecute any alcohol or drug abuse patient.[facility]In the event this information is protected by the Federal Confidentiality of Alcohol and Drug Abuse Patient Records regulations: The Federal rules restrict any use of the information to criminally investigate or prosecute any alcohol or drug abuse patient.[facility]In the event this information is protected by the Federal Confidentiality of Alcohol and Drug Abuse Patient Records regulations: The Federal rules restrict any use of the information to criminally investigate or prosecute any alcohol or drug abuse patient.[facility]In the event this information is protected by the Federal Confidentiality of Alcohol and Drug Abuse Patient Records regulations: The Federal rules restrict any use of the information to criminally investigate or prosecute any alcohol or drug abuse patient.[facility]In the event this information is protected by the Federal Confidentiality of Alcohol and Drug Abuse Patient Records regulations: The Federal rules restrict any use of the information to criminally investigate or prosecute any alcohol or drug abuse patient.[facility]In the event this information is protected by the Federal Confidentiality of Alcohol and Drug Abuse Patient Records regulations: The Federal rules restrict any use of the information to criminally investigate or prosecute any alcohol or drug abuse patient.[facility]In the event this information is protected by the Federal Confidentiality of Alcohol and Drug Abuse Patient Records regulations: The Federal rules restrict any use of the information to criminally investigate or prosecute any alcohol or drug abuse patient.[facility]In the event this information is protected by the Federal Confidentiality of Alcohol and Drug Abuse Patient Records regulations: The Federal rules restrict any use of the information to criminally investigate or prosecute any alcohol or drug abuse patient.[facility]In the event this information is protected by the Federal Confidentiality of Alcohol and Drug Abuse Patient Records regulations: The Federal rules restrict any use of the information to criminally investigate or prosecute any alcohol or drug abuse patient.[facility]In the event this information is protected by the Federal Confidentiality of Alcohol and Drug Abuse Patient Records regulations: The Federal rules restrict any use of the information to criminally investigate or prosecute any alcohol or drug abuse patient.[facility]In the event this information is protected by the Federal Confidentiality of Alcohol and Drug Abuse Patient Records regulations: The Federal rules restrict any use of the information to criminally investigate or prosecute any alcohol or drug abuse patient.[facility]In the event this information is protected by the Federal Confidentiality of Alcohol and Drug Abuse Patient Records regulations: The Federal rules restrict any use of the information to criminally investigate or prosecute any alcohol or drug abuse patient.[facility]In the event this information is protected by the Federal Confidentiality of Alcohol and Drug Abuse Patient Records regulations: The Federal rules restrict any use of the information to criminally investigate or prosecute any alcohol or drug abuse patient.[facility]In the event this information is protected by the Federal Confidentiality of Alcohol and Drug Abuse Patient Records regulations: The Federal rules restrict any use of the information to criminally investigate or prosecute any alcohol or drug abuse patient.[facility]In the event this information is protected by the Federal Confidentiality of Alcohol and Drug Abuse Patient Records regulations: The Federal rules restrict any use of the information to criminally investigate or prosecute any alcohol or drug abuse patient.[facility]In the event this information is protected by the Federal Confidentiality of Alcohol and Drug Abuse Patient Records regulations: The Federal rules restrict any use of the information to criminally investigate or prosecute any alcohol or drug abuse patient.[facility]In the event this information is protected by the Federal Confidentiality of Alcohol and Drug Abuse Patient Records regulations: The Federal rules restrict any use of the information to criminally investigate or prosecute any alcohol or drug abuse patient.[facility]In the event this information is protected by the Federal Confidentiality of Alcohol and Drug Abuse Patient Records regulations: The Federal rules restrict any use of the information to criminally investigate or prosecute any alcohol or drug abuse patient.[facility]In the event this information is protected by the Federal Confidentiality of Alcohol and Drug Abuse Patient Records regulations: The Federal rules restrict any use of the information to criminally investigate or prosecute any alcohol or drug abuse patient.[facility]In the event this information is protected by the Federal Confidentiality of Alcohol and Drug Abuse Patient Records regulations: The Federal rules restrict any use of the information to criminally investigate or prosecute any alcohol or drug abuse patient.[facility]In the event this information is protected by the Federal Confidentiality of Alcohol and Drug Abuse Patient Records regulations: The Federal rules restrict any use of the information to criminally investigate or prosecute any alcohol or drug abuse patient.[facility]In the event this information is protected by the Federal Confidentiality of Alcohol and Drug Abuse Patient Records regulations: The Federal rules restrict any use of the information to criminally investigate or prosecute any alcohol or drug abuse patient.[facility]In the event this information is protected by the Federal Confidentiality of Alcohol and Drug Abuse Patient Records regulations: The Federal rules restrict any use of the information to criminally investigate or prosecute any alcohol or drug abuse patient.[facility]In the event this information is protected by the Federal Confidentiality of Alcohol and Drug Abuse Patient Records regulations: The Federal rules restrict any use of the information to criminally investigate or prosecute any alcohol or drug abuse patient.[facility]In the event this information is protected by the Federal Confidentiality of Alcohol and Drug Abuse Patient Records regulations: The Federal rules restrict any use of the information to criminally investigate or prosecute any alcohol or drug abuse patient.[facility]In the event this information is protected by the Federal Confidentiality of Alcohol and Drug Abuse Patient Records regulations: The Federal rules restrict any use of the information to criminally investigate or prosecute any alcohol or drug abuse patient.[facility]In the event this information is protected by the Federal Confidentiality of Alcohol and Drug Abuse Patient Records regulations: The Federal rules restrict any use of the information to criminally investigate or prosecute any alcohol or drug abuse patient.[facility]In the event this information is protected by the Federal Confidentiality of Alcohol and Drug Abuse Patient Records regulations: The Federal rules restrict any use of the information to criminally investigate or prosecute any alcohol or drug abuse patient.[facility]In the event this information is protected by the Federal Confidentiality of Alcohol and Drug Abuse Patient Records regulations: The Federal rules restrict any use of the information to criminally investigate or prosecute any alcohol or drug abuse patient.[facility] HospitalIn the event this information is protected by the Federal Confidentiality of Alcohol and Drug Abuse Patient Records regulations: The Federal rules restrict any use of the information to criminally investigate or prosecute any alcohol or drug abuse patient.[facility] HospitalIn the event this information is protected by the Federal Confidentiality of Alcohol and Drug Abuse Patient Records regulations: The Federal rules restrict any use of the information to criminally investigate or prosecute any alcohol or drug abuse patient.[facility] the event this information is protected by the Federal Confidentiality of Alcohol and Drug Abuse Patient Records regulations: The Federal rules restrict any use of the information to criminally investigate or prosecute any alcohol or drug abuse patient.[facility] HospitalIn the event this information is protected by the Federal Confidentiality of Alcohol and Drug Abuse Patient Records regulations: The Federal rules restrict any use of the information to criminally investigate or prosecute any alcohol or drug abuse patient.[facility] HospitalIn the event this information is protected by the Federal Confidentiality of Alcohol and Drug Abuse Patient Records regulations: The Federal rules restrict any use of the information to criminally investigate or prosecute any alcohol or drug abuse patient.[facility] HospitalIn the event this information is protected by the Federal Confidentiality of Alcohol and Drug Abuse Patient Records regulations: The Federal rules restrict any use of the information to criminally investigate or prosecute any alcohol or drug abuse patient.[facility] HospitalIn the event this information is protected by the Federal Confidentiality of Alcohol and Drug Abuse Patient Records regulations: The Federal rules restrict any use of the information to criminally investigate or prosecute any alcohol or drug abuse patient.[facility]In the event this information is protected by the Federal Confidentiality of Alcohol and Drug Abuse Patient Records regulations: The Federal rules restrict any use of the information to criminally investigate or prosecute any alcohol or drug abuse patient.[facility] HospitalIn the event this information is protected by the Federal Confidentiality of Alcohol and Drug Abuse Patient Records regulations: The Federal rules restrict any use of the information to criminally investigate or prosecute any alcohol or drug abuse patient.[facility] HospitalIn the event this information is protected by the Federal Confidentiality of Alcohol and Drug Abuse Patient Records regulations: The Federal rules restrict any use of the information to criminally investigate or prosecute any alcohol or drug abuse patient.[facility]In the event this information is protected by the Federal Confidentiality of Alcohol and Drug Abuse Patient Records regulations: The Federal rules restrict any use of the information to criminally investigate or prosecute any alcohol or drug abuse patient.[facility] HospitalIn the event this information is protected by the Federal Confidentiality of Alcohol and Drug Abuse Patient Records regulations: The Federal rules restrict any use of the information to criminally investigate or prosecute any alcohol or drug abuse patient.[facility] HospitalIn the event this information is protected by the Federal Confidentiality of Alcohol and Drug Abuse Patient Records regulations: The Federal rules restrict any use of the information to criminally investigate or prosecute any alcohol or drug abuse patient.[facility] HospitalIn the event this information is protected by the Federal Confidentiality of Alcohol and Drug Abuse Patient Records regulations: The Federal rules restrict any use of the information to criminally investigate or prosecute any alcohol or drug abuse patient.[facility] HospitalIn the event this information is protected by the Federal Confidentiality of Alcohol and Drug Abuse Patient Records regulations: The Federal rules restrict any use of the information to criminally investigate or prosecute any alcohol or drug abuse patient.[facility]In the event this information is protected by the Federal Confidentiality of Alcohol and Drug Abuse Patient Records regulations: The Federal rules restrict any use of the information to criminally investigate or prosecute any alcohol or drug abuse patient.[facility] HospitalIn the event this information is protected by the Federal Confidentiality of Alcohol and Drug Abuse Patient Records regulations: The Federal rules restrict any use of the information to criminally investigate or prosecute any alcohol or drug abuse patient.[facility] HospitalIn the event this information is protected by the Federal Confidentiality of Alcohol and Drug Abuse Patient Records regulations: The Federal rules restrict any use of the information to criminally investigate or prosecute any alcohol or drug abuse patient.[facility] HospitalIn the event this information is protected by the Federal Confidentiality of Alcohol and Drug Abuse Patient Records regulations: The Federal rules restrict any use of the information to criminally investigate or prosecute any alcohol or drug abuse patient.[facility] HospitalIn the event this information is protected by the Federal Confidentiality of Alcohol and Drug Abuse Patient Records regulations: The Federal rules restrict any use of the information to criminally investigate or prosecute any alcohol or drug abuse patient.[facility] HospitalIn the event this information is protected by the Federal Confidentiality of Alcohol and Drug Abuse Patient Records regulations: The Federal rules restrict any use of the information to criminally investigate or prosecute any alcohol or drug abuse patient.[facility] HospitalIn the event this information is protected by the Federal Confidentiality of Alcohol and Drug Abuse Patient Records regulations: The Federal rules restrict any use of the information to criminally investigate or prosecute any alcohol or drug abuse patient.[facility] HospitalIn the event this information is protected by the Federal Confidentiality of Alcohol and Drug Abuse Patient Records regulations: The Federal rules restrict any use of the information to criminally investigate or prosecute any alcohol or drug abuse patient.[facility] HospitalIn the event this information is protected by the Federal Confidentiality of Alcohol and Drug Abuse Patient Records regulations: The Federal rules restrict any use of the information to criminally investigate or prosecute any alcohol or drug abuse patient.[facility] HospitalIn the event this information is protected by the Federal Confidentiality of Alcohol and Drug Abuse Patient Records regulations: The Federal rules restrict any use of the information to criminally investigate or prosecute any alcohol or drug abuse patient.[facility] HospitalIn the event this information is protected by the Federal Confidentiality of Alcohol and Drug Abuse Patient Records regulations: The Federal rules restrict any use of the information to criminally investigate or prosecute any alcohol or drug abuse patient.[facility] HospitalIn the event this information is protected by the Federal Confidentiality of Alcohol and Drug Abuse Patient Records regulations: The Federal rules restrict any use of the information to criminally investigate or prosecute any alcohol or drug abuse patient.[facility] Care Teams (unrecognized sec tion and content) Fine Unhairer Relationship Specialty Start Date End Date Husam Deras DO [address] [place] [address] PCP - General Family Practice 10/16/14 Mena Machuca, DO [address] [address] Consulting Peripheral Vascular 02/18/21 Robotham, Diane L [address] [facility] [address] [place] [address] Surgeon General Surgery 11/30/21 Fine Unhairer Relationship Specialty Start Date End Date Husam Deras, DO [address] [place] [address] PCP - General Family Practice 10/16/14 Mena Machuca, DO [address] [address] Consulting Peripheral Vascular 02/18/21 Robotham, Diane L [address] [facility] [address] [place] [address] Surgeon General Surgery 11/30/21 Fine Unhairer Relationship Specialty Start Date End Date Husam Deras, DO [address] [place] [address] PCP - General Family Practice 10/16/14 Mena Machuca, DO [address] [address] Consulting Peripheral Vascular 02/18/21 Robotham, Diane L [address] [facility] [address] [place] [address] Surgeon General Surgery 11/30/21 Fine Unhairer Relationship Specialty Start Date End Date Husam Deras, DO [address] [place] [address] PCP - General Family Practice 10/16/14 Mena Machuca, DO [address] [address] Consulting Peripheral Vascular 02/18/21 Robotham, Diane L [address] [facility] [address] [place] [address] Surgeon General Surgery 11/30/21 Fine Unhairer Relationship Specialty Start Date End Date Husam Deras, DO [address] [place] [address] PCP - General Family Practice 10/16/14 Mena Machuca, DO [address] [address] Consulting Peripheral Vascular 02/18/21 Robotham, Diane L [address] [facility] [address] [place] [address]267 Surgeon General Surgery 11/30/21 Fine Unhairer Relationship Specialty Start Date End Date Husam Deras, DO [address] [place] [address] PCP - General Family Practice 10/16/14 Mena Machuca, DO [address] [address] Consulting Peripheral Vascular 02/18/21 Robotham, Diane L [address] [facility] [address] [place] [address]58 Surgeon General Surgery 11/30/21 Fine Unhairer Relationship Specialty Start Date End Date Husam Deras, DO [address] [place] [address] PCP - General Family Practice 10/16/14 Mena Machuca, DO [address] [address] Consulting Peripheral Vascular 02/18/21 Robotham, Diane L [address] [facility] [address] [place] [address] Surgeon General Surgery 11/30/21 Yasmin Marquez, KEYA [address] [place], [place] [id number] Inspector Of Dredging 02/01/22 Fine Unhairer Relationship Specialty Start Date End Date Husam Deras, DO [address] [place] [address] PCP - General Family Practice 10/16/14 Mena Machuca, DO [address] [address] Consulting Peripheral Vascular 02/18/21 Diane Justice L [address] [facility] [address] [place] [address] Surgeon General Surgery 11/30/21 Yasmin Marquez RN [address] [place] [address] Inspector Of Dredging 02/01/22 Fine Unhairer Relationship Specialty Start Date End Date Husam Deras, DO [address] [place] [address] PCP - General Family Practice 10/16/14 Mena Machuca, DO [address] [address] Consulting Peripheral Vascular 02/18/21 Diane Justice L [address] [facility] [address] [place] [address] Surgeon General Surgery 11/30/21 Yasmin Marquez RN [address] [place], [place] [id number] Inspector Of Dredging 02/01/22 Fine Unhairer Relationship Specialty Start Date End Date Husam Deras, DO [address] [place] [address] PCP - General Family Practice 10/16/14 Mena Machuca, DO [address] [address] Consulting Peripheral Vascular 02/18/21 Reshma, Diane L [address] [facility] [address] [place] [address] Surgeon General Surgery 11/30/21 Yasmin Marquez, RN [address] [place], [place] [id number] Inspector Of Dredging 02/01/22 Fine Unhairer Relationship Specialty Start Date End Date Husam Deras, DO [address] [place] [address] PCP - General Family Practice 10/16/14 Mena Machuca, DO [address] [address] Consulting Peripheral Vascular 02/18/21 Nasim Justiceera L [address] [facility] [address] [place] [address] Surgeon General Surgery 11/30/21 Yasmin Marquez RN [address] [place], [place] [phone] Inspector Of Dredging 02/01/22 Fine Unhairer Relationship Specialty Start Date End Date Husam Deras, DO [address] [place] [address] PCP - General Family Practice 10/16/14 Mena Machuca, DO [address] [address] Consulting Peripheral Vascular 02/18/21 Nasim Justiceera L [address] [facility] [address] [place] [address] Surgeon General Surgery 11/30/21 Yasmin Marquez, KEYA [address] [place], [place] [phone] Inspector Of Dredging 02/01/22 Fine Unhairer Relationship Specialty Start Date End Date Husam Deras, DO [address] [place] [address] PCP - General Family Medicine 10/16/14 Mena Machuca, DO [address] [address] Consulting Peripheral Vascular 02/18/21 Robotham, Diane L [address] [facility] [address] [place] [address] Surgeon General Surgery 11/30/21 Yasmin Marquez, KEYA [address] [place], [place] [id number] Inspector Of Dredging 02/01/22 Fine Unhairer Relationship Specialty Start Date End Date Husam Deras, DO [address] [place] [address] PCP - General Family Medicine 10/16/14 Mena Machuca, DO [address] [address] Consulting Peripheral Vascular 02/18/21 Robotham, Diane L [address] [facility] [address] [place] [address]140 Surgeon General Surgery 11/30/21 Yasmin Marquez RN [address] [place], [place] [id number] Inspector Of Dredging 02/01/22 Fine Unhairer Relationship Specialty Start Date End Date Husam Deras, DO [address] [place] [address] PCP - General Family Medicine 10/16/14 Mena Machuca, DO [address] [address] Consulting Peripheral Vascular 02/18/21 Robotham, Diane L [address] [facility] [address] [place] [address]199 Surgeon General Surgery 11/30/21 Yasmin Marquez, RN [address] [place], [place] [phone] Inspector Of Dredging 02/01/22 Fine Unhairer Relationship Specialty Start Date End Date Husam Deras, DO [address] [place] [address] PCP - General Family Medicine 10/16/14 Mena Machuca, DO [address] [address] Consulting Peripheral Vascular 02/18/21 Mattham, Diane L [address] [facility] [address] [place] [address] Surgeon General Surgery 11/30/21 Yasmin Marquez, KEYA [address] [place] [address] Inspector Of Dredging 02/01/22 Fine Unhairer Relationship Specialty Start Date End Date Husam Deras, DO [address] [place] [address] PCP - General Family Medicine 10/16/14 Mena Machuca, DO [address] [address] Consulting Peripheral Vascular 02/18/21 Reshma, Diane L [address] [facility] [address] [place] [address] Surgeon General Surgery 11/30/21 Yasmin Marquez, RN [address] [place], [place] [phone] Inspector Of Dredging 02/01/22 Fine Unhairer Relationship Specialty Start Date End Date Husam Deras, DO [address] [place] [address] PCP - General Family Medicine 10/16/14 Mena Machuca, DO [address] [address] Consulting Peripheral Vascular 02/18/21 Robotham, Diane L [address] [facility] [address] [place] [address]26 Surgeon General Surgery 11/30/21 Yasmin Marquez, KEYA [address] [place], [place] [phone] Inspector Of Dredging 02/01/22 Fine Unhairer Relationship Specialty Start Date End Date Husam Deras, DO [address] [place] [address] PCP - General Family Medicine 10/16/14 Mena Machuca, DO [address] [place] [address] Consulting Peripheral Vascular 02/18/21 Robotham, Diane L [address] [facility] [address] [place] [address]48 Surgeon General Surgery 11/30/21 Yasmin Marquez, KEYA [address] [place], [place] [id number] Inspector Of Dredging 02/01/22 Fine Unhairer Relationship Specialty Start Date End Date Husam Deras, DO [address] [place] [address] PCP - General Family Medicine 10/16/14 Mena Machuca, DO [address] [address] Consulting Peripheral Vascular 02/18/21 Robotham, Diane L [address] [facility] [address] [place] [address]16 Surgeon General Surgery 11/30/21 Humberto Wang, RN [address] [place], [place] [id number] Inspector Of Dredging 02/01/22 Fine Unhairer Relationship Specialty Start Date End Date Husam Deras, DO [address] [place] [address] PCP - General Family Medicine 10/16/14 Mena Machuca, DO [address] [address] Consulting Peripheral Vascular 02/18/21 Robotham, Diane L [address] [facility] [address] [place] [address] Surgeon General Surgery 11/30/21 Humberto Wang, RN [address] [place] [address] Inspector Of Dredging 02/01/22 Fine Unhairer Relationship Specialty Start Date End Date Husam Deras, DO [address] [place] [address] PCP - General Family Medicine 10/16/14 Mena Machuca, DO [address] [address] Consulting Peripheral Vascular 02/18/21 Robotham, Diane L [address] [facility] [address] [place] [address] Surgeon General Surgery 11/30/21 Humberto Wang, RN [address] [place] [address] Inspector Of Dredging 02/01/22 Fine Unhairer Relationship Specialty Start Date End Date Husam Deras, DO [address] [place] [address] PCP - General Family Medicine 10/16/14 Mena Machuca, DO [address] [address] Consulting Peripheral Vascular 02/18/21 Robotham, Diane L [address] [facility] [address] [place] [address] Surgeon General Surgery 11/30/21 Humberto Wang, RN [address] [place] [address] Inspector Of Dredging 02/01/22 Fine Unhairer Relationship Specialty Start Date End Date Husam Deras, DO [address] [place] [address] PCP - General Family Medicine 10/16/14 Mena Machuca, DO [address] [address] Consulting Peripheral Vascular 02/18/21 Robotham, Diane L [address] [facility] [address] [place] [address] Surgeon General Surgery 11/30/21 Humberto Wang, RN [address] [place] [address] Inspector Of Dredging 02/01/22 Fine Unhairer Relationship Specialty Start Date End Date Husam Deras, DO [address] [place] [address] PCP - General Family Medicine 10/16/14 Mena Machuca, DO [address] [address] Consulting Peripheral Vascular 02/18/21 Robotham, Diane L [address] [facility] [address] [address] Surgeon General Surgery 11/30/21 Humberto Wang, RN [address] [place] [address] Inspector Of Dredging 02/01/22 Fine Unhairer Relationship Specialty Start Date End Date Husam Deras, DO [address] [place] [address] PCP - General Family Medicine 10/16/14 Mena Machuca, DO [address] [address] Consulting Peripheral Vascular 02/18/21 Robotham, Diane L [address] [facility] [address] [place] [address], [place] [address] Surgeon General Surgery 11/30/21 Humberto Wang, RN [address] [place] [address] Inspector Of Dredging 02/01/22 Fine Unhairer Relationship Specialty Start Date End Date Husam Deras, DO [address] [place] [address] PCP - General Family Medicine 10/16/14 Mena Machuca, DO [address] [facility] [address] [place] [address] Consulting Peripheral Vascular 02/18/21 Robotham, Diane L [address] [facility] [address] [place] [address] Surgeon General Surgery 11/30/21 Humberto Wang, RN [address] [place] [address] Inspector Of Dredging 02/01/22 Fine Unhairer Relationship Specialty Start Date End Date Husam Deras, DO [address] [place] [address] PCP - General Family Medicine 10/16/14 Mena Machuca, DO [address] [facility] [address] [place] [address] Consulting Peripheral Vascular 02/18/21 [facility] Diane L [address] [facility] [address] [place] [address]609 Surgeon General Surgery 11/30/21 Humberto Wang, RN [address] [place] [address] Inspector Of Dredging 02/01/22 Fine Unhairer Relationship Specialty Start Date End Date Husam Deras, DO [address] [place] [address] PCP - General Family Medicine 10/16/14 Mena Machuca, DO [address] [address] Consulting Peripheral Vascular 02/18/21 Robotham, Diane L [address] [facility] [address] [place] [address] Surgeon General Surgery 11/30/21 Denisse Eller, KEYA [address] [place] [address] Inspector Of Dredging 02/16/23 Fine Unhairer Relationship Specialty Start Date End Date Husam Deras, DO [address] [place] [address] PCP - General Family Medicine 10/16/14 Mena Machuca, DO [address] [address] Consulting Peripheral Vascular 02/18/21 Reshma, Diane L [address] [facility] [address] [place] [address] Surgeon General Surgery 11/30/21 [place] [address] [place] [address] Inspector Of Dredging 02/16/23 Fine Unhairer Relationship Specialty Start Date End Date Husam Deras, DO [address] [place] [address] PCP - General Family Medicine 10/16/14 Mena Machuca, DO [address] [address] Consulting Peripheral Vascular 02/18/21 Robotham, Diane L [address] [facility] [address] [place] [address] Surgeon General Surgery 11/30/21 Humberto Wang RN [address] [place] [address] Inspector Of Dredging 02/01/22 02/15/23 [place] [address] [address] [place], [place] [id number] Inspector Of Dredging 02/16/23 Fine Unhairer Relationship Specialty Start Date End Date Husam Deras, DO [address] [place] [address] PCP - General Family Medicine 10/16/14 Mena Machuca, DO [address] [address] Consulting Peripheral Vascular 02/18/21 Reshma, Diane L [address] [facility] [address] [place] [address] Surgeon General Surgery 11/30/21 [place] [address] [place] [address] Inspector Of Dredging 02/16/23 Fine Unhairer Relationship Specialty Start Date End Date Husam Deras, DO [address] [place] [address] PCP - General Family Medicine 10/16/14 Mena Machuca, DO [address] [address] Consulting Peripheral Vascular 02/18/21 Reshma, Diane L [address] [facility] [address] [place] [address] Surgeon General Surgery 11/30/21 [place] [address] [place] [address] Inspector Of Dredging 02/16/23 Fine Unhairer Relationship Specialty Start Date End Date Husam Deras, DO [address] [place] [address] PCP - General Family Medicine 10/16/14 Mena Machuca DO [address] [address] Consulting Peripheral Vascular 02/18/21 Nasim Justiceera L [address] [facility] [address] [place] [address] Surgeon General Surgery 11/30/21 Denisse Eller, KEYA [address] [place] [address] Inspector Of Dredging 02/16/23 Fine Unhairer Relationship Specialty Start Date End Date Husam Deras, [address] [place] [address] PCP - General Family Medicine 10/16/14 Mena Machuca, DO [address] [address] Consulting Peripheral Vascular 02/18/21 Nasim Justiceera L [address] [facility] [address] [place] [address] Surgeon General Surgery 11/30/21 Denisse Eller, KEYA [address] [place] [address] Inspector Of Dredging 02/16/23 Fine Unhairer Relationship Specialty Start Date End Date Husam Deras, [address] [place] [address] PCP - General Family Medicine 10/16/14 Mena Machuca, [address] [address] Consulting Peripheral Vascular 02/18/21 Reshma Diane L [address] [facility] [address] [place] [address] Surgeon General Surgery 11/30/21 [place] [address] [place] [address] Inspector Of Dredging 02/16/23 Fine Unhairer Relationship Specialty Start Date End Date Husam Deras DO [address] [place] [address] PCP - General Family Medicine 10/16/14 Mena Machuca, DO [address] [address] Consulting Peripheral Vascular 02/18/21 Diane Justice [address] [facility] [address] [place] [address] Surgeon General Surgery 11/30/21 [place] [address] [place] [address] Inspector Of Dredging 02/16/23 Fine Unhairer Relationship Specialty Start Date End Date Husam Deras DO [address] [place] [address] PCP - General Family Medicine 10/16/14 Mena Machuca, DO [address] [address] Consulting Peripheral Vascular 02/18/21 Diane Justice [address] [facility] [address] [place] [address] Surgeon General Surgery 11/30/21 Denisse Eller, KEYA [address] [place] [address] Inspector Of Dredging 02/16/23 Fine Unhairer Relationship Specialty Start Date End Date Husam Deras DO [address] [place] [address] PCP - General Family Medicine 10/16/14 Mena Machuca DO [address] [address] Consulting Peripheral Vascular 02/18/21 Diane Justice [address] [facility] [address] [place] [address] Surgeon General Surgery 11/30/21 Denisse Eller, KEYA [address] [address] [place], [place] 7[address] Inspector Of Dredging 02/16/23 Fine Unhairer Relationship Specialty Start Date End Date Husam Deras DO [address] [place] [address] PCP - General Family Medicine 10/16/14 Mena Machuca DO [address] [address] Consulting Peripheral Vascular 02/18/21 Diane Justice [address] [facility] [address] [place] [address] Surgeon General Surgery 11/30/21 [place] [address] [place] [address] Inspector Of Dredging 02/16/23 Fine Unhairer Relationship Specialty Start Date End Date Husam Deras DO [address] [place] [address] PCP - General Family Medicine 10/16/14 Mena Machuca DO [address] [address] Consulting Peripheral Vascular 02/18/21 Diane Justice [address] [facility] [address] [place] [address] Surgeon General Surgery 11/30/21 [place] [address] [place] [address] Inspector Of Dredging 02/16/23 Fine Unhairer Relationship Specialty Start Date End Date Husam Deras, DO [address] [place] [address] PCP - General Family Medicine 10/16/14 Mena Machuca, DO [address] [id number] Consulting Peripheral Vascular 02/18/21 Diane Justice [address] [facility] [address] [place] [address] Surgeon General Surgery 11/30/21 [place] [address] [place] [address] Inspector Of Dredging 02/16/23 Fine Unhairer Relationship Specialty Start Date End Date Husam Deras, DO [address] [place] [address] PCP - General Family Medicine 10/16/14 Mena Machuca, DO [address] [address] Consulting Peripheral Vascular 02/18/21 Diane Justice [address] [facility] [address] [place] [address] Surgeon General Surgery 11/30/21 [place] [address] [place] [address] Inspector Of Dredging 02/16/23 Fine Unhairer Relationship Specialty Start Date End Date Husam Deras DO [address] [place] [address] PCP - General Family Medicine 10/16/14 Mena Machuca, DO [address] [address] Consulting Peripheral Vascular 02/18/21 Diane Justice [address] [facility] [address] [place] [address] Surgeon General Surgery 11/30/21 [place] [address] [place] [address] Inspector Of Dredging 02/16/23 Fine Unhairer Relationship Specialty Start Date End Date Husam Deras DO [address] [place] [address] PCP - General Family Medicine 10/16/14 Mena Machuca, DO [address] [address] Consulting Peripheral Vascular 02/18/21 Diane Jusitce MD [address] [facility] [address] [place] [address] Surgeon General Surgery 11/30/21 [place] [address] [place] [address] Inspector Of Dredging 02/16/23 Fine Unhairer Relationship Specialty Start Date End Date Husam Deras DO [address] [place] [address] PCP - General Family Medicine 10/16/14 Mena Machuca, [address] [address] Consulting Peripheral Vascular 02/18/21 Diane Justice MD [address] [facility] [address] [place] [address] Surgeon General Surgery 11/30/21 [place] [address] [place], [place] [id number] Inspector Of Dredging 02/16/23 Fine Unhairer Relationship Specialty Start Date End Date Husam Deras DO [address] [place] [address] PCP - General Family Medicine 10/16/14 Mena Machuca, [address] [address] Consulting Peripheral Vascular 02/18/21 Diane Justice MD [address] [facility] [address] [place] [address] Surgeon General Surgery 11/30/21 Denisse Eller, KEYA [address] [place] [address] Inspector Of Dredging 02/16/23 Fine Unhairer Relationship Specialty Start Date End Date Husam Deras DO [address] [place] [address] PCP - General Family Medicine 10/16/14 Mena Machuca DO [address] [address] Consulting Peripheral Vascular 02/18/21 Diane Justice MD [address] [address] Surgeon General Surgery 11/30/21 Denisse Eller, KEYA [address] [place] [address] Inspector Of Dredging 02/16/23 Fine Unhairer Relationship Specialty Start Date End Date Husam Deras DO [address] [place] [address] PCP - General Family Medicine 10/16/14 Mena Machuca DO [address] [place] [address] Consulting Peripheral Vascular 02/18/21 Diane Justice MD [address] [place] [address] Surgeon General Surgery 11/30/21 [place] [address] [address] [place], [place] [id number] Inspector Of Dredging 02/16/23 Fine Unhairer Relationship Specialty Start Date End Date Husam Deras DO [address] [place] [address] PCP - General Family Medicine 10/16/14 Mena Machuca DO [address] [address] Consulting Peripheral Vascular 02/18/21 Diane Justice MD [address] [place] [address] Surgeon General Surgery 11/30/21 [place] [address] [place] [address] Inspector Of Dredging 02/16/23 Fine Unhairer Relationship Specialty Start Date End Date Husam Deras DO [address] [place], [place] [id number] PCP - General Family Medicine 10/16/14 Mena Machuca DO [address] [address] Consulting Peripheral Vascular 02/18/21 Diane Justice MD [address] [place], [place] [address] Surgeon General Surgery 11/30/21 [place] [address] [place], [place] [id number] Inspector Of Dredging 02/16/23 Reason for Visit (unrecogniz ed section and content) Reason Comments Patient Update Reason Comments Blood Pressure Reason Comments Blood Pressure Check Reason Comments Follow Up 3 months Reason Comments Spirometry Specialty Diagnoses / Procedures Referred By Contac t Referred To [facility] Diagnoses SOB (shortness of breath) Procedures SPIROMETRY - BASELINE AND POST DILATOR BRNCDILAT RSPSE SPMTRY PRE&POST-BRNCDILAT ADMN Husam Deras DO [address] [place] [address] [place] [address] Referral ID Status Reason Start Date Expiration Date V isits Requested Visits Authorized [id number] Closed Auto-Generate d Referral 02/01/2022 03/03/2023 1 [...] INJ PER DOSE GEORGES INJECT 3 Husam Deras, DO [address] [place] [address] Seble Peralta PA-C [address] [place] [address] Referral ID Status Reason Start Date Expiration Date V isits Requested Visits Authorized [id number] Authorized 05/21/2022 07/20/2022 6 6 Reason Onset [...] Injection # 3 Reason Onset Date Comments [facility] 07/22/2022 Reason Onset Date Comments [facility] 07/29/2022 Telephonic outre ach Reason Onset Date Comments [facility] 09/10/2022 Telephonic outre ach Reason Onset Date Comments Refill Request 09/10/2022 Reason Comments Medication Question [facility] Reason Comments Rx Refills Reason Onset Date Comments [facility] 10/08/2022 Telephonic outre ach Reason Comments Cardiology Follow Up No issues Reason Onset Date Comments Medication Question 10/26/2022 Reason Comments Medication Question See 10/25/22 refill e ncounter in regards to Gabapentin and Lyrica Reason Onset Date Comments [facility] 11/05/2022 Telephonic outre ach Reason Comments Refill Request Reason Comments [facility] Verbal approval to d o an extraction. Reason Onset Date Comments [facility] 12/07/2022 Telephonic outre ach Reason Comments Appointment Needs testing Reason Comments Appointment Rescheduled Reason Comments Leg Pain Reason Onset Date Comments [facility] Outreach 01/03/2023 [facility] Reason Onset Date Comments [facility] 01/06/2023 CD M follow up Reason Comments F/U 3 Month Reason Comments Question Reason Onset Date Comments [facility] 02/08/2023 Telephonic outre ach Reason Onset Date Comments [facility] 02/09/2023 Telephonic outre ach Reason Comments Opened [...] 6 Month Exam Reason Onset Date Comments [facility] 05/03/2023 Check in call Reason Onset Date Comments [facility] 05/31/2023 Check in call Reason Onset Date Comments [facility] 06/28/2023 Check in call Reason Comments Sinus Problem chest pressure, righ t knee pain x today Reason Comments Shortness of Breath X4 days. Seen in ED yesterday at [facility] Specialty Diagnoses / Procedures Referred By Contac t Referred To [facility] Diagnoses SOB (shortness of breath) Procedures SPIROMETRY WITH DILATOR IF OBSTRUCTED BRNCDILAT RSPSE SPMTRY PRE&POST-BRNCDILAT ADMAurelia Willett MD [address] [place] [address] [place] [id number] Referral ID Status Reason Start Date Expiration Date V isits Requested Visits Authorized [id number] Closed Auto-Generate d Referral 07/21/2023 09/11/2023 1 1 Reason Onset Date Comments New Patient Dyspnea Immunizations 07/21/2023 Flu vaccination Reason Onset Date Comments [facility] 08/09/2023 Check in call Reason Onset Date Comments [facility] 08/25/2023 Check in call FOR RECORDS PERTAINING [...] BE BASED ON THE PRIMARY CLINICAL RECORDS. [facility]. provides no warranty or guarantee of the accuracy or completeness of information in this document.
[2023-09-14] VITALS (29 sets, daily range): BP systolic 68–182; BP diastolic 43–168; PULSE 59–86; RESP 16–30; TEMP 36.4–36.8; O2SAT 86–100; BMI 33.4
[2023-09-14 02:37] LABS: Absolute Lymphocyte Count 0.96 X10^3/uL (0.83-4.51); Absolute Neutrophil Count 8.7 X10^3/uL (2.0-7.7); Basophil# 0.02 X10^3/uL; Basophil% 0.2 % (0-1); Eosinophil# 0.01 X10^3/uL; Eosinophils% 0.1 % (0-5); Hematocrit 43.9 % (40-54); Lymphocyte # 0.96 X10^3/ul (0.83-4.51); Lymphocyte % 9.1 % (19-41); Mean Corp Hgb Conc 31.9 g/dL (32-36); Mean Platelet Vol. 11.8 fl (6.2-12.0); Monocyte# 0.83 X10^3/uL; Monocyte% 7.9 % (0-10); NRBC Flagged by Analyzer 0 % (0-5); Neutrophil # 8.69 X10^3/uL (2.7-7.7); Neutrophil % 82.4 % (47-70); Platelet Count 124 K/mm3 (150-450); RBC Distribution Width CV 14.5 % (11.6-14.6); RBC Distribution Width SD 49.5 fl (35.1-43.9); Red Blood Count 4.67 M/mm3 (4.6-6.2); White Blood Count 10.5 K/mm3 (4.4-11.0)
[2023-09-14 04:28] LABS: Magnesium 2.3 mg/dL (1.6-2.6)
[2023-09-14 04:40] LABS: Troponin-I HS 5737 pg/mL (3.0-78.0)
[2023-09-14 04:53] LABS: ALB/GLOB Ratio 0.9 RATIO (0.9-2.4); AST(SGOT) 35 U/L (15-37); Alanine Aminotransfer ALT/SGPT 27 U/L (16-61); Albumin, Serum 2.9 g/dL (3.2-5.0); Alkaline Phosphatase 51 U/L (45-117); Anion Gap 11 (5-15); BUN 76 mg/dL (7-18); BUN/Creat Ratio 16.6 RATIO (10-20); Calcium,Total 7.5 mg/dL (8.5-10.1); Chloride 111 mmol/L (98-107); Creatinine, Serum 4.57 mg/dL (0.70-1.30); EST Glomerular Filtration Rate 13 mL/min (>60); Est Glom Filt Rate - Afr Amer 16 mL/min (>60); Estimated Creatinine Clearance 13.09 ml/min; Globulin 3.3 g/dL (2.2-4.2); Glucose 104 mg/dL (74-106); Phosphorus 6.6 mg/dL (2.5-4.9); Potassium 4.3 mmol/L (3.5-5.1); Protein, Total 6.2 g/dL (6.4-8.2); Sodium Level 142 mmol/L (136-145)
[2023-09-14] MEDS: 0.9% Normal Saline (1000mL) 1,000 ML 150 ML IV ×3 (06:12→21:00)
[2023-09-14] MEDS: Levothyroxine 75 MCG Tablet PO (06:14)
[2023-09-14] MEDS: Enoxaparin 100 MG/ML Syringe SC (06:22)
[2023-09-14 07:44] LABS: Lactic Acid 1.1 mmol/L (0.4-1.9)
--- NOTE | 2023-09-14 09:08 | PN.HOSP_ITS ---
Subjective Subjective Doing well, denies any chest pain or shortness of breath. No issues overnight. Renal function is improving. Objective Data Objective Data Vital Signs: Vital Signs Temp Pulse Resp BP Pulse Ox O2 Del Method O2 Flow Rate 97.5 F L 61 18 111/45 L 88 Room Air 2 09/14/23 08:00 09/14/23 08:00 09/14/23 08:00 09/14/23 08:00 09/14/23 08:00 09/14/23 08:00 09/13/23 22:38 Oxygen Flow Rate (L/min) 2 Oxygen Delivery Method Room Air Weight: 232 lb 12.93 oz Body Mass Index (BMI) 33.4 Intake & Output: Intake and Output for Last 24 Hours 09/13/23 09/14/23 09/15/23 03:59 03:59 03:59 Intake Total 1050 / 1050 1120 / 1120 Output Total 0 / 0 307 / 307 Balance 1050 / 1050 813 / 813 Lab / Micro Data 09/14/23 02:30 09/14/23 04:05 Labs: Laboratory Results - last 24 hr 09/13/23 20:35: WBC 12.4 H, RBC 5.19, Hgb 15.4, Hct 48.2, MCV 92.9, MCH 29.7, MCHC 32.0, RDW Std Deviation 49.1 H, RDW Coeff of [place] 14.3, Plt Count 147 L, MPV 11.1, Immature Gran % (Auto) 0.600, Neut % (Auto) 86.1 H, Lymph % (Auto) 4.7 L, [place] % (Auto) 8.4, Eos % (Auto) 0.0, Baso % (Auto) 0.2, Absolute Neuts (auto) 10.7 H, Absolute Lymphs (auto) 0.58 L, Nucleated RBC % 0, Differential Comment SCANNED, Sodium 139, Potassium 4.4, Chloride 107, Carbon Dioxide 25.0, Anion Gap 7, BUN 81 H, Creatinine 5.76 H, Estim Creat Clear Calc 10.39, Est GFR (MDRD) Af Amer 12 L, Est GFR (MDRD) Non-Af 10 L, BUN/Creatinine Ratio 14.1, Glucose 134 H, Calcium 9.0, Troponin I High Sens 1305 H*, B-Natriuretic Peptide 66.3 09/13/23 22:15: Urine Color Yellow, Urine Clarity Sl. Cloudy, Urine pH 5.0, Ur Specific [place] 1.030, Urine Protein 100 H, Urine Glucose (UA) Normal, Urine Ketones 5 H, Urine Occult Blood 150 H, Urine Nitrite Positive H, Urine Bilirubin 3 H, Urine Urobilinogen 1 H, Ur Leukocyte Esterase 25 H, Urine RBC 0-5 SEEN, Urine WBC 5-10 SEEN, Ur Squamous Epith Cells 0 SEEN, Calcium Oxalate Crystal RARE, Urine Bacteria 1+, Hyaline Casts 0-5 SEEN, Urine Mucus 0 SEEN 09/14/23 02:30: WBC 10.5, RBC 4.67, Hgb 14.0, Hct 43.9, MCV 94.0, MCH 30.0, MCHC 31.9 L, RDW Std Deviation 49.5 H, RDW Coeff of [place] 14.5, Plt Count 124 L, MPV 11.8, Immature Gran % (Auto) 0.300, Neut % (Auto) 82.4 H, Lymph % (Auto) 9.1 L, [place] % (Auto) 7.9, Eos % (Auto) 0.1, Baso % (Auto) 0.2, Absolute Neuts (auto) 8.7 H, Absolute Lymphs (auto) 0.96, Nucleated RBC % 0, Troponin I High Sens Cancelled 09/14/23 03:40: Troponin I High Sens Cancelled 09/14/23 04:05: Sodium 142, Potassium 4.3, Chloride 111 H, Carbon Dioxide 20.0 L , Anion Gap 11, BUN 76 H, Creatinine 4.57 H, Estim Creat Clear Calc 13.09, Est GFR (MDRD) Af Amer 16 L, Est GFR (MDRD) Non-Af 13 L, BUN/Creatinine Ratio 16.6, Glucose 104, Calcium 7.5 L, Phosphorus 6.6 H, Magnesium 2.3, Total Bilirubin 0.50, AST 35, ALT 27, Alkaline Phosphatase 51, Troponin I High Sens 5737 H*, Total Protein 6.2 L, Albumin 2.9 L, Globulin 3.3, Albumin/Globulin Ratio 0.9, TSH 1.80 09/14/23 06:27: Lactic Acid 1.1 Radiography Diagnostic Testing: Radiology Impression Brain CT 09/13/23 20:20 IMPRESSION: No acute intracranial pathology of the brain. 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 Electronically Signed: Suman Francois DO at 20:45 EST , Chest X-Ray 09/13/23 20:40 IMPRESSION: Left basilar infiltrate/atelectasis. Effusion at the left costophrenic angle. Electronically Signed: Suman Francois DO at 20:53 EST , Physical Exam Narrative General: Alert, Oriented x3, Cooperative, No apparent distress HEENT: Atraumatic, PERRLA, EOMI, Normocephalic Oral: Moist Mucosa Neck: Supple, No JVD Lungs: Diminished, Normal air movement, No rhonchi, No wheeze, No rales Cardiovascular: Regular rate, Regular Rhythm, Normal S1, Normal S2, No murmurs Abdomen: Soft, Non Tender, Non-Distended, No Hepato-splenomegaly Extremities: No edema, Capillary Refill Less than 3 Seconds Skin: No rashes, No breakdown Musculoskeletal: No Tenderness to Palpation of Joints or Extremities Neurological: Cranial nerves II-XII grossly intact, Motor Exam 5/5 strength throughout, Sensory exam intact to light touch and pain Psych/Mental Status: Normal Affect, Appropriate Assessment & Plan Assessment/Plan (1) Syncope and collapse: (2) Elevated troponin: PLAN: Plan 1. Acute renal failure/non-STEMI/UTI ? Unclear as to the etiology of his renal failure, will continue with IV fluids appreciate nephrology's assistance ? Denies any chest pain and EKGs are nonischemic however troponin is significantly elevated beyond what I would expect for acute renal failure I will consult cardiology for assistance ? Continue with antibiotics, urine culture is pending ? Echo is pending ? Carotid Dopplers are also pending 2. HTN/HLD ? Continue with as needed hydralazine for blood pressure control currently his blood pressures are stable so we will just monitor ? Will hold his hydrochlorothiazide and lisinopril secondary to his acute renal failure ? We will monitor make adjustments as necessary 3. Hypothyroidism ? Stable, TSH is 1.8 ? Continue with Synthroid DVT: Lovenox Charges/Coding Visit Charges Inpatient E&M: 39018 Subs Hosp L2
[2023-09-14] MEDS: Piperacil/Tazobactam 3.375 GM in 0.9% Normal Saline (50mL MB+) 50 ML IV ×2 (09:42→20:59)
[2023-09-14] MEDS: Psyllium 1 PACKET PO (09:43)
[2023-09-14] MEDS: Gabapentin 400 MG Capsule PO (09:43)
[2023-09-14] MEDS: Aspirin E.C. 81 MG Tablet PO (09:43)
[2023-09-14] MEDS: Loratadine 10 MG Tablet PO (09:43)
[2023-09-14] MEDS: Atenolol 25 MG Tablet PO (09:43)
[2023-09-14] MEDS: Clopidogrel Bisulfate 75 MG Tablet PO (09:54)
--- NOTE | 2023-09-14 12:16 | CON.PCM.RE_ITS ---
Assessment & Plan Assessment/Plan (1) ALEX (acute kidney injury): PLAN: Baseline creatinine was around 1.0-1.1. Even on the discharge day of 08/27/2023 his creatinine was around 1.1. Came with a creatinine of more than 5. Blood pressure was fairly low. Ortiz catheter indwelling, urine output has improved. Most likely volume depletion from use of lisinopril, Lasix, NSAIDs and associated diarrhea Continue aggressive IV fluids Ortiz catheter indwelling, chance of obstruction or low Urine analysis appears consistent with UTI, cultures are pending. HPI Consult Data Date of Consult: 09/14/23 HPI Narrative Reason for Consultation: Acute renal failure HPI Narrative: GEORGE KEY, is a 82 M who presents to the hospital with syncope and generalized weakness. Apparently he passed out about 5 times yesterday, neighbor found him and 911 was called. He was recently admitted here and transferred to [facility]. Discharged from there on the . At that time he had transient altered mental status which resolved. Discharge creatinine was around 1.0. It appears he was discharged home on low-dose Lasix and lisinopril. He also had diarrhea which resolved after he came home. Denies any urinary complaints. He was using meloxicam/ibuprofen for neck pain. No urinary complaints otherwise. [facility] Medical History Arthritis Back pain BPH (benign prostatic hyperplasia) Cardiology follow-up encounter Coronary artery disease Easy bruising Former smoker History of irregular heartbeat History of stress test Leg cramps Thyroid disease Wears glasses Wears hearing aid Wears partial dentures Home Medications aspirin 81 mg tablet,delayed release 81 mg PO DAILY@0800 10/10/17 [History Last Taken 10/11/17] atenolol 25 mg tablet 25 mg PO DAILY blood pressure 10/10/17 [History Last Taken 12/28/21] meclizine 25 mg tablet 25 mg PO PRN PRN Dizziness 10/10/17 [History Last Taken 11/03/21] hydrochlorothiazide 12.5 mg tablet 12.5 mg PO DAILY 10/07/18 [History Last Taken Unknown] lisinopril 30 mg tablet 20 mg PO BID blood pressure 10/07/18 [History Last Taken 12/28/21] cetirizine 10 mg tablet 10 mg PO DAILY allergies 11/03/21 [History Last Taken Unknown] gabapentin 400 mg capsule 400 mg PO BID neuropathy 11/03/21 [History Last Taken Unknown] levothyroxine 75 mcg tablet 100 mcg PO DAILY thyroid 12/24/21 [History Last Taken 12/28/21] meloxicam 7.5 mg tablet (Mobic) 7.5 mg PO DAILY 12/24/21 [History Last Taken Unknown] omega-3 fatty acids 1,000 mg PO DAILY 12/24/21 [History Last Taken Unknown] psyllium husk 0.4 gram capsule (Daily Fiber) 0.4 g PO DAILY fiber 12/24/21 [History Last Taken Unknown] tamsulosin 0.4 mg capsule 0.4 mg PO BID prostate 12/24/21 [History Last Taken Unknown] tramadol 50 mg tablet 50 mg PO Q6H PRN pain 3 days #10 tabs 12/28/21 [Rx Last Taken Unknown] albuterol sulfate 90 mcg/actuation aerosol inhaler 1 inh inhalation Q4H PRN sob/wheezing 09/14/23 [History Last Taken Unknown] amlodipine 10 mg tablet 10 mg PO DAILY bloodpressure 09/14/23 [History Last Taken Unknown] fluticasone 100 mcg-salmeterol 50 mcg/dose blistr powdr for inhalation 1 inh inhalation Q12H copd 09/14/23 [History Last Taken Unknown] furosemide 20 mg tablet 20 mg PO DAILY diuretic 09/14/23 [History Last Taken Unknown] gabapentin 800 mg tablet 800 mg PO QHS gabapentin 09/14/23 [History Last Taken Unknown] nitroglycerin 0.4 mg sublingual tablet 0.4 mg sublingual Q5M chest pain 09/14/23 [History Last Taken Unknown] rosuvastatin 10 mg tablet 10 mg PO QHS cholesterol 09/14/23 [History Last Taken Unknown] Allergy/AdvReac Type Severity Reaction Status Date / Time atorvastatin [From Lipitor] AdvReac Other Verified 09/13/23 20:05 Surgical History History of cardiac catheterization History of cholecystectomy History of coronary artery bypass graft Hx of shoulder surgery Social History household members: none Smoking Status: Former smoker substance use type: does not use ROS ROS Narrative Negative except above Physical Exam Narrative Alert awake oriented x 3 no obvious distress no pallor no icterus no JVD s1s2 no murmurs lungs clear abdomen soft no organomegaly no edema no cyanosis ortiz + Lab / Micro Data 09/14/23 02:30 09/14/23 04:05 Labs: Laboratory Results - last 24 hr 09/13/23 20:35: WBC 12.4 H, RBC 5.19, Hgb 15.4, Hct 48.2, MCV 92.9, MCH 29.7, MCHC 32.0, RDW Std Deviation 49.1 H, RDW Coeff of [place] 14.3, Plt Count 147 L, MPV 11.1, Immature Gran % (Auto) 0.600, Neut % (Auto) 86.1 H, Lymph % (Auto) 4.7 L, [place] % (Auto) 8.4, Eos % (Auto) 0.0, Baso % (Auto) 0.2, Absolute Neuts (auto) 10.7 H, Absolute Lymphs (auto) 0.58 L, Nucleated RBC % 0, Differential Comment SCANNED, Sodium 139, Potassium 4.4, Chloride 107, Carbon Dioxide 25.0, Anion Gap 7, BUN 81 H, Creatinine 5.76 H, Estim Creat Clear Calc 10.39, Est GFR (MDRD) Af Amer 12 L, Est GFR (MDRD) Non-Af 10 L, BUN/Creatinine Ratio 14.1, Glucose 134 H, Calcium 9.0, Troponin I High Sens 1305 H*, B-Natriuretic Peptide 66.3 09/13/23 22:15: Urine Color Yellow, Urine Clarity Sl. Cloudy, Urine pH 5.0, Ur Specific [place] 1.030, Urine Protein 100 H, Urine Glucose (UA) Normal, Urine Ketones 5 H, Urine Occult Blood 150 H, Urine Nitrite Positive H, Urine Bilirubin 3 H, Urine Urobilinogen 1 H, Ur Leukocyte Esterase 25 H, Urine RBC 0-5 SEEN, Urine WBC 5-10 SEEN, Ur Squamous Epith Cells 0 SEEN, Calcium Oxalate Crystal RARE, Urine Bacteria 1+, Hyaline Casts 0-5 SEEN, Urine Mucus 0 SEEN 09/14/23 02:30: WBC 10.5, RBC 4.67, Hgb 14.0, Hct 43.9, MCV 94.0, MCH 30.0, MCHC 31.9 L, RDW Std Deviation 49.5 H, RDW Coeff of [place] 14.5, Plt Count 124 L, MPV 11.8, Immature Gran % (Auto) 0.300, Neut % (Auto) 82.4 H, Lymph % (Auto) 9.1 L, [place] % (Auto) 7.9, Eos % (Auto) 0.1, Baso % (Auto) 0.2, Absolute Neuts (auto) 8.7 H, Absolute Lymphs (auto) 0.96, Nucleated RBC % 0, Troponin I High Sens Cancelled 09/14/23 03:40: Troponin I High Sens Cancelled 09/14/23 04:05: Sodium 142, Potassium 4.3, Chloride 111 H, Carbon Dioxide 20.0 L , Anion Gap 11, BUN 76 H, Creatinine 4.57 H, Estim Creat Clear Calc 13.09, Est GFR (MDRD) Af Amer 16 L, Est GFR (MDRD) Non-Af 13 L, BUN/Creatinine Ratio 16.6, Glucose 104, Calcium 7.5 L, Phosphorus 6.6 H, Magnesium 2.3, Total Bilirubin 0.50, AST 35, ALT 27, Alkaline Phosphatase 51, Troponin I High Sens 5737 H*, Total Protein 6.2 L, Albumin 2.9 L, Globulin 3.3, Albumin/Globulin Ratio 0.9, TSH 1.80 09/14/23 06:27: Lactic Acid 1.1 Imagaing Radiology Impression Brain CT 09/13/23 20:20 IMPRESSION: No acute intracranial pathology of the brain. 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 Electronically Signed: Suman Francois DO at 20:45 EST , Chest X-Ray 09/13/23 20:40 IMPRESSION: Left basilar infiltrate/atelectasis. Effusion at the left costophrenic angle. Electronically Signed: Suman Francois DO at 20:53 EST , Echocardiogram 09/13/23 23:36 Interpretation Summary The left ventricular ejection fraction is 55 %. Stage 1 diastolic dysfunction. Severely dilated right ventricle. Moderately severe global right ventricular systolic dysfunction. Septal wall motion consistent with RV pressure and volume overload The right atrium is moderately enlarged. Mild tricuspid valve insufficiency. Right ventricular systolic pressure estimated to be 47 mmHg. Ordering Physician: Benton Perez Performed By: Amena Lee RDCS
[2023-09-14] MEDS: Acetaminophen 325 MG Tablet 650 MG PO ×2 (12:21→20:51)
--- NOTE | 2023-09-14 12:57 | PCM.CONS.C ---
Assessment & Plan Assessment/Plan (1) Elevated troponin: PLAN: In the setting of acute renal failure. No chest pain or shortness of breath reported. Normal left ventricular systolic function. Dilated right ventricle. Check D-dimers. If elevated, then consider VQ scan. Patient not a candidate for cardiac catheterization/coronary angiography in view of acute renal failure. (2) Coronary artery disease: PLAN: History of CABG. See #1 above. Continue aspirin. (3) Right ventricular systolic dysfunction without heart failure: PLAN: Check D-dimers. Will also try to get records from recent hospitalization at [facility] to see if an echocardiogram was performed. (4) ALEX (acute kidney injury): PLAN: Nephrology on consult. (5) Syncope and collapse: PLAN: Normal LV systolic function. Dilated right ventricle. See #1 2 and 3 above. HPI Consult Data Date of Consult: 09/14/23 HPI Narrative Reason for Consultation: Elevated troponin HPI Narrative: This gentleman has past medical history significant for coronary artery disease status post CABG. He presented to the hospital with syncopal episode at home. He was noted to be in acute renal failure and cystitis. As part of his workup, troponins were also checked. These are noted to be elevated. Patient denies any chest pains or shortness of breath. Denies orthopnea or PND. No ankle edema. Denies any palpitations. Echocardiogram revealed normal left ventricular systolic function. Severely dilated right ventricle with moderate to severe right ventricular systolic dysfunction. Estimated pulmonary artery systolic pressure 47 mmHg. [facility] Medical History (Updated 09/14/23 @ 13:[address] Keaton Quintana MD) Arthritis Back pain BPH (benign prostatic hyperplasia) Cardiology follow-up encounter Coronary artery disease Easy bruising Former smoker History of irregular heartbeat History of stress test Leg cramps Thyroid disease Wears glasses Wears hearing aid Wears partial dentures Home Medications aspirin 81 mg tablet,delayed release 81 mg PO DAILY@0800 10/10/17 [History Last Taken 10/11/17] atenolol 25 mg tablet 25 mg PO DAILY blood pressure 10/10/17 [History Last Taken 12/28/21] meclizine 25 mg tablet 25 mg PO PRN PRN Dizziness 10/10/17 [History Last Taken 11/03/21] hydrochlorothiazide 12.5 mg tablet 12.5 mg PO DAILY 10/07/18 [History Last Taken Unknown] lisinopril 30 mg tablet 20 mg PO BID blood pressure 10/07/18 [History Last Taken 12/28/21] cetirizine 10 mg tablet 10 mg PO DAILY allergies 11/03/21 [History Last Taken Unknown] gabapentin 400 mg capsule 400 mg PO BID neuropathy 11/03/21 [History Last Taken Unknown] levothyroxine 75 mcg tablet 100 mcg PO DAILY thyroid 12/24/21 [History Last Taken 12/28/21] meloxicam 7.5 mg tablet (Mobic) 7.5 mg PO DAILY 12/24/21 [History Last Taken Unknown] omega-3 fatty acids 1,000 mg PO DAILY 12/24/21 [History Last Taken Unknown] psyllium husk 0.4 gram capsule (Daily Fiber) 0.4 g PO DAILY fiber 12/24/21 [History Last Taken Unknown] tamsulosin 0.4 mg capsule 0.4 mg PO BID prostate 12/24/21 [History Last Taken Unknown] tramadol 50 mg tablet 50 mg PO Q6H PRN pain 3 days #10 tabs 12/28/21 [Rx Last Taken Unknown] albuterol sulfate 90 mcg/actuation aerosol inhaler 1 inh inhalation Q4H PRN sob/wheezing 09/14/23 [History Last Taken Unknown] amlodipine 10 mg tablet 10 mg PO DAILY bloodpressure 09/14/23 [History Last Taken Unknown] fluticasone 100 mcg-salmeterol 50 mcg/dose blistr powdr for inhalation 1 inh inhalation Q12H copd 09/14/23 [History Last Taken Unknown] furosemide 20 mg tablet 20 mg PO DAILY diuretic 09/14/23 [History Last Taken Unknown] gabapentin 800 mg tablet 800 mg PO QHS gabapentin 09/14/23 [History Last Taken Unknown] nitroglycerin 0.4 mg sublingual tablet 0.4 mg sublingual Q5M chest pain 09/14/23 [History Last Taken Unknown] rosuvastatin 10 mg tablet 10 mg PO QHS cholesterol 09/14/23 [History Last Taken Unknown] Allergy/AdvReac Type Severity Reaction Status Date / Time atorvastatin [From Lipitor] AdvReac Other Verified 09/13/23 20:05 Surgical History History of cardiac catheterization History of cholecystectomy History of coronary artery bypass graft Hx of shoulder surgery Social History household members: none Smoking Status: Former smoker substance use type: does not use Physical Exam Narrative Comfortable. No apparent distress. Heart sounds 1 and 2 are normal. Chest clear to auscultation bilaterally. Alert oriented x 3. No ankle edema. Risk Stratification Risk Stratification Applicable: No Objective Data Vital Signs: Vital Signs Temp Pulse Resp BP Pulse Ox O2 Del Method O2 Flow Rate 98.0 F 70 27 H 118/72 96 CPAP 2 09/14/23 12:00 09/14/23 12:00 09/14/23 12:00 09/14/23 12:00 09/14/23 12:00 09/14/23 12:27 09/14/23 09:00 Oxygen Flow Rate (L/min) 2 Oxygen Delivery Method CPAP Weight: 232 lb 12.93 oz Body Mass Index (BMI) 33.4 Intake & Output: Intake and Output for Last 24 Hours 09/12/23 09/13/23 09/14/23 23:59 23:59 23:59 Intake Total 1050 / 1050 1560 / 1560 Output Total 0 / 0 507 / 507 Balance 1050 / 1050 1053 / 1053 Lab / Micro Data Attestation: I reviewed the patient's lab results. 09/14/23 02:30 09/14/23 04:05 Labs: Laboratory Results - last 24 hr 09/13/23 20:35: WBC 12.4 H, RBC 5.19, Hgb 15.4, Hct 48.2, MCV 92.9, MCH 29.7, MCHC 32.0, RDW Std Deviation 49.1 H, RDW Coeff of [place] 14.3, Plt Count 147 L, MPV 11.1, Immature Gran % (Auto) 0.600, Neut % (Auto) 86.1 H, Lymph % (Auto) 4.7 L, [place] % (Auto) 8.4, Eos % (Auto) 0.0, Baso % (Auto) 0.2, Absolute Neuts (auto) 10.7 H, Absolute Lymphs (auto) 0.58 L, Nucleated RBC % 0, Differential Comment SCANNED, Sodium 139, Potassium 4.4, Chloride 107, Carbon Dioxide 25.0, Anion Gap 7, BUN 81 H, Creatinine 5.76 H, Estim Creat Clear Calc 10.39, Est GFR (MDRD) Af Amer 12 L, Est GFR (MDRD) Non-Af 10 L, BUN/Creatinine Ratio 14.1, Glucose 134 H, Calcium 9.0, Troponin I High Sens 1305 H*, B-Natriuretic Peptide 66.3 09/13/23 22:15: Urine Color Yellow, Urine Clarity Sl. Cloudy, Urine pH 5.0, Ur Specific [place] 1.030, Urine Protein 100 H, Urine Glucose (UA) Normal, Urine Ketones 5 H, Urine Occult Blood 150 H, Urine Nitrite Positive H, Urine Bilirubin 3 H, Urine Urobilinogen 1 H, Ur Leukocyte Esterase 25 H, Urine RBC 0-5 SEEN, Urine WBC 5-10 SEEN, Ur Squamous Epith Cells 0 SEEN, Calcium Oxalate Crystal RARE, Urine Bacteria 1+, Hyaline Casts 0-5 SEEN, Urine Mucus 0 SEEN 09/14/23 02:30: WBC 10.5, RBC 4.67, Hgb 14.0, Hct 43.9, MCV 94.0, MCH 30.0, MCHC 31.9 L, RDW Std Deviation 49.5 H, RDW Coeff of [place] 14.5, Plt Count 124 L, MPV 11.8, Immature Gran % (Auto) 0.300, Neut % (Auto) 82.4 H, Lymph % (Auto) 9.1 L, [place] % (Auto) 7.9, Eos % (Auto) 0.1, Baso % (Auto) 0.2, Absolute Neuts (auto) 8.7 H, Absolute Lymphs (auto) 0.96, Nucleated RBC % 0, Troponin I High Sens Cancelled 09/14/23 03:40: Troponin I High Sens Cancelled 09/14/23 04:05: Sodium 142, Potassium 4.3, Chloride 111 H, Carbon Dioxide 20.0 L, Anion Gap 11, BUN 76 H, Creatinine 4.57 H, Estim Creat Clear Calc 13.09, Est GFR (MDRD) Af Amer 16 L, Est GFR (MDRD) Non-Af 13 L, BUN/Creatinine Ratio 16.6, Glucose 104, Calcium 7.5 L, Phosphorus 6.6 H, Magnesium 2.3, Total Bilirubin 0.50, AST 35, ALT 27, Alkaline Phosphatase 51, Troponin I High Sens 5737 H*, Total Protein 6.2 L, Albumin 2.9 L, Globulin 3.3, Albumin/Globulin Ratio 0.9, TSH 1.80 09/14/23 06:27: Lactic Acid 1.1 Rhythm Strip Rhythm Strip: Sinus Rhythm Cardiology Labs/Tests 09/13/23 20:35: WBC 12.4 H, RBC 5.19, Hgb 15.4, Hct 48.2, MCV 92.9, MCH 29.7, MCHC 32.0, Plt Count 147 L, MPV 11.1, Immature Gran % (Auto) 0.600, Neut % (Auto) 86.1 H, Lymph % (Auto) 4.7 L, [place] % (Auto) 8.4, Eos % (Auto) 0.0, Baso % (Auto) 0.2, Absolute Neuts (auto) 10.7 H, Nucleated RBC % 0, Sodium 139, Potassium 4.4, Chloride 107, Carbon Dioxide 25.0, Anion Gap 7, BUN 81 H, Creatinine 5.76 H, Est GFR (MDRD) Af Amer 12 L, Est GFR (MDRD) Non-Af 10 L, BUN/Creatinine Ratio 14.1, Glucose 134 H, Calcium 9.0, B-Natriuretic Peptide 66.3 09/13/23 22:15: Urine Color Yellow, Urine Clarity Sl. Cloudy, Urine pH 5.0, Ur Specific [place] 1.030, Urine Protein 100 H, Urine Glucose (UA) Normal, Urine Ketones 5 H, Urine Occult Blood 150 H, Urine Nitrite Positive H, Urine Bilirubin 3 H, Urine Urobilinogen 1 H, Ur Leukocyte Esterase 25 H, Urine RBC 0-5 SEEN, Urine WBC 5-10 SEEN 09/14/23 02:30: WBC 10.5, RBC 4.67, Hgb 14.0, Hct 43.9, MCV 94.0, MCH 30.0, MCHC 31.9 L, Plt Count 124 L, MPV 11.8, Immature Gran % (Auto) 0.300, Neut % (Auto) 82.4 H, Lymph % (Auto) 9.1 L, [place] % (Auto) 7.9, Eos % (Auto) 0.1, Baso % (Auto) 0.2, Absolute Neuts (auto) 8.7 H, Nucleated RBC % 0 09/14/23 04:05: Sodium 142, Potassium 4.3, Chloride 111 H, Carbon Dioxide 20.0 L, Anion Gap 11, BUN 76 H, Creatinine 4.57 H, Est GFR (MDRD) Af Amer 16 L, Est GFR (MDRD) Non-Af 13 L, BUN/Creatinine Ratio 16.6, Glucose 104, Calcium 7.5 L, Phosphorus 6.6 H, Magnesium 2.3, Total Bilirubin 0.50 09/14/23 06:27: Lactic Acid 1.1 Rhythm: EKG: Sinus rhythm with T wave changes in anterior leads. ECHO: Stress Test: Cardiac Cath: PCI: CT Surgery: Holter monitor: EPS: PPM: CXR: Chest CT Scan: Radiography Diagnostic Testing: Radiology Impression Brain CT 09/13/23 20:20 IMPRESSION: No acute intracranial pathology of the brain. 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 Electronically Signed: Suman Francois DO at 20:45 EST , Chest X-Ray 09/13/23 20:40 IMPRESSION: Left basilar infiltrate/atelectasis. Effusion at the left costophrenic angle. Electronically Signed: Suman Francois DO at 20:53 EST , Echocardiogram 09/13/23 23:36 Interpretation Summary The left ventricular ejection fraction is 55 %. Stage 1 diastolic dysfunction. Severely dilated right ventricle. Moderately severe global right ventricular systolic dysfunction. Septal wall motion consistent with RV pressure and volume overload The right atrium is moderately enlarged. Mild tricuspid valve insufficiency. Right ventricular systolic pressure estimated to be 47 mmHg. Ordering Physician: Benton Perez Performed By: Amena Lee RDCS
--- NOTE | 2023-09-14 13:04 | RAD_ITS ---
HISTORY: lt arm and shoulder pain -- pt in icu. can do portable. TECHNIQUE: XR Humerus Min 2 Views. COMPARISON: None. FINDINGS: BONES : No acute fracture identified. Small sclerosis in the humeral neck, likely enchondroma or small bone infarct. JOINTS: No dislocation. Moderate degenerative change. SOFT TISSUES: Probable calcified granulomas in the left lung base. RAD/Humerus min 2 Views IMPRESSION: No acute fracture or dislocation identified in the left humerus. Electronically Signed: Adwoa Johnson MD at 14:25 EST ,
--- NOTE | 2023-09-14 13:42 | CASEMGMT ---
KEYA ÁVZQUEZ Assessment: Face to Face with pt for initial transition planning/care coordination assessment. KEYA VÁZQUEZ introduced self and role at [facility], pt voices understanding and consents to assessment. Pt is A&O x4 and answers all questions appropriately at this time. Pt lying in bed with oxygen on in no distress. Care providers, pharmacy, and demographics verified/updated. Admitting Dx:severe arf, UTI, syncope and NSTEMI with metabolic encephalopathy PCP:Braeden Specialists:Denies Preferred Pharmacy:[facility] Insurance:Hakan RICE Dual, [facility] Prescription Benefit: yes LNOK:Pt does not have any contacts listed and denies need to do so. Pt has a friend/neighbor Fern that helps him but will not share her phone number. Living Arrangements: Pt lives in a single story apt with 4 steps to enter with a rail. Pt reports he is I in ADL's and denies concerns at home. Transportation: Pt drives self and denies concerns with transportation. DME:shower chair, cane, medic alert, oxygen at through [employer]. Pt is unsure of liter flow. HHC/SNF:Pt has had HHC in the past but is unsure of which agency. Pt denies SNF stays. Pt states no concerns with going home at time of dc. He states he was just in [facility] last week and was dc'd. He denies any services being set up for him because I didn't want any . Pt states he wants to get home to his cats and denies any homegoing needs at this time. Pt states no further concerns/needs. CM to follow. Advised pt to ask CM if any further question/concerns/needs arise, voices understanding. Pt Goal:Home Plan:Home pending course of hospitalization, therapy evals pending.
[2023-09-14 14:14] LABS: D-Dimer Quantitative (DVT/PE) > 20.00 FEU/ug/m (0.27-0.49)
[2023-09-14] MEDS: Tamsulosin HCl 0.4 MG Capsule 0.400000000000000022 MG PO (20:51)
[2023-09-14] MEDS: 0.9% Saline Lock 10 ML Syringe IV (20:51)
[2023-09-15] VITALS (19 sets, daily range): BP systolic 96–139; BP diastolic 38–90; PULSE 55–72; RESP 14–30; TEMP 36.1–36.6; O2SAT 94–100; BMI 34.4
[2023-09-15] MEDS: 0.9% Normal Saline (1000mL) 1,000 ML 150 ML IV (03:44)
[2023-09-15 03:45] LABS: Absolute Lymphocyte Count 0.54 X10^3/uL (0.83-4.51); Basophil# 0.02 X10^3/uL; Basophil% 0.2 % (0-1); Differential Indicated SCAN CRITERIA MET; Eosinophil# 0.08 X10^3/uL; Hematocrit 39.1 % (40-54); Hemoglobin 12.4 g/dL (13.0-16.5); Lymphocyte # 0.54 X10^3/ul (0.83-4.51); Lymphocyte % 6.6 % (19-41); Mean Corp Hgb Conc 31.7 g/dL (32-36); Mean Corpuscular Volume 94.7 fL (80-94); Mean Platelet Vol. 11.8 fl (6.2-12.0); Monocyte# 0.53 X10^3/uL; Monocyte% 6.5 % (0-10); NRBC Flagged by Analyzer 0 % (0-5); Neutrophil # 6.98 X10^3/uL (2.7-7.7); Neutrophil % 85.2 % (47-70); POSITIVE COUNT YES; POSITIVE DIFFERENTIAL YES; Platelet Count 88 K/mm3 (150-450); RBC Distribution Width CV 14.5 % (11.6-14.6); RBC Distribution Width SD 50.2 fl (35.1-43.9); Red Blood Count 4.13 M/mm3 (4.6-6.2); White Blood Count 8.2 K/mm3 (4.4-11.0)
[2023-09-15 04:06] LABS: Anion Gap 5 (5-15); BUN 64 mg/dL (7-18); BUN/Creat Ratio 28.7 RATIO (10-20); Calcium,Total 6.6 mg/dL (8.5-10.1); Chloride 120 mmol/L (98-107); Creatinine, Serum 2.23 mg/dL (0.70-1.30); EST Glomerular Filtration Rate 30 mL/min (>60); Est Glom Filt Rate - Afr Amer 37 mL/min (>60); Estimated Creatinine Clearance 26.82 ml/min; Glucose 99 mg/dL (74-106); Potassium 4.4 mmol/L (3.5-5.1); Sodium Level 146 mmol/L (136-145)
[2023-09-15 04:30] LABS: Differential Comment SCANNED; Toxic Granulation 3+
[2023-09-15 04:31] LABS: Platelet Estimate MOD DEC (ADEQ)
[2023-09-15] MEDS: Levothyroxine 75 MCG Tablet PO (04:31)
--- NOTE | 2023-09-15 06:19 | NM_ITS ---
CLINICAL: 82-year-old male with history of completion of the d-dimer and complaint of chest discomfort. VENTILATION-PERFUSION LUNG SCINTIGRAPHY COMPARISON: Plain film chest radiograph report 09/13/2023 FINDINGS: The patient was administered 50.0 mCi 99m Tc DTPA aerosol. The aerosol ventilation study demonstrates heterogeneous ventilation in the bilateral lung rodríguez without corresponding radiographic changes visualized on review of plain film chest x-ray dated 09/13/2023. Central clumping of the aerosol is the bilateral thorax. Following the intravenous administration of 5.8 mCi of 99m Tc MAA, the pulmonary perfusion study reveals non-uniform perfusion in the right and left lungs of less significant severity than the previously defined ventilation pattern. No moderate subsegmental or large segmental ventilation-perfusion mismatches are noted. There are regions of retained normal perfusion visualized. NM/Lung Scan Vent/Perf IMPRESSION: 1. VERY LOW PROBABILITY FOR PULMONARY EMBOLUS (<10%) 99m Tc DTPA aerosol ventilation / 99m Tc MAA pulmonary perfusion imaging examination, according to PIOPED II interpretive criteria with regard given to the presence of > 2 ventilation-perfusion matches without corresponding radiographic changes. (Sotsman et al, Radiology 246: 941, 2008 Sotsman et al, J Nucl Med 49: 1741, 2008). 2. Central clumping of the aerosol may be secondary to obstructive airway mechanics and or clinical tachypnea. Electronically Signed: Michael Figueroa DO at 13:07 EST ,
[2023-09-15] MEDS: Loratadine 10 MG Tablet PO (08:24)
[2023-09-15] MEDS: Aspirin E.C. 81 MG Tablet PO (08:24)
[2023-09-15] MEDS: Clopidogrel Bisulfate 75 MG Tablet PO (08:24)
[2023-09-15] MEDS: Atenolol 25 MG Tablet PO (08:24)
[2023-09-15] MEDS: Psyllium 1 PACKET PO (08:25)
[2023-09-15] MEDS: Gabapentin 400 MG Capsule PO (08:29)
--- NOTE | 2023-09-15 08:32 | PCM.PN.CARD ---
Subjective Subjective Sitting up in the chair. Denies any complaints. Objective Data Vital Signs: Vital Signs Temp Pulse Resp BP Pulse Ox O2 Del Method O2 Flow Rate 97.4 F L 55 L 16 128/55 H 99 Nasal Cannula 2 09/15/23 03:47 09/15/23 07:00 09/15/23 07:00 09/15/23 07:00 09/15/23 07:00 09/15/23 07:00 09/15/23 07:00 FiO2 2 09/14/23 21:11 Oxygen Flow Rate (L/min) 2 Oxygen Delivery Method Nasal Cannula Weight: 239 lb 13.807 oz Body Mass Index (BMI) 34.4 Intake & Output: Intake and Output for Last 24 Hours 09/13/23 09/14/23 09/15/23 23:59 23:59 23:59 Intake Total 1050 / 1050 3465 / 3465 1050 / 1050 Output Total 0 / 0 1129 / 1129 450 / 450 Balance 1050 / 1050 2336 / 2336 600 / 600 Lab / Micro Data 09/15/23 03:33 09/15/23 03:33 Labs: Laboratory Results - last 24 hr 09/14/23 13:25: D-Dimer Quant (PE/DVT) > 20.00 H* 09/15/23 03:33: WBC 8.2, RBC 4.13 L, Hgb 12.4 L, Hct 39.1 L, MCV 94.7 H, MCH 30.0, MCHC 31.7 L, RDW Std Deviation 50.2 H, RDW Coeff of [place] 14.5, Plt Count 88 L, MPV 11.8, Immature Gran % (Auto) 0.500, Neut % (Auto) 85.2 H, Lymph % (Auto) 6.6 L, [place] % (Auto) 6.5, Eos % (Auto) 1.0, Baso % (Auto) 0.2, Absolute Neuts (auto) 7.0, Absolute Lymphs (auto) 0.54 L, Nucleated RBC % 0, Differential Comment SCANNED, Toxic Granulation 3+, Platelet Estimate MOD DEC, Sodium 146 H, Potassium 4.4, Chloride 120 H, Carbon Dioxide 21.0, Anion Gap 5, BUN 64 H, Creatinine 2.23 H, Estim Creat Clear Calc 26.82, Est GFR (MDRD) Af Amer 37 L, Est GFR (MDRD) Non-Af 30 L, BUN/Creatinine Ratio 28.7 H, Glucose 99, Calcium 6.6 L Rhythm Strip Rhythm Strip: Sinus Rhythm Cardiology Labs/Tests 09/14/23 13:25: D-Dimer Quant (PE/DVT) > 20.00 H* 09/15/23 03:33: WBC 8.2, RBC 4.13 L, Hgb 12.4 L, Hct 39.1 L, MCV 94.7 H, MCH 30.0, MCHC 31.7 L, Plt Count 88 L, MPV 11.8, Immature Gran % (Auto) 0.500, Neut % (Auto) 85.2 H, Lymph % (Auto) 6.6 L, [place] % (Auto) 6.5, Eos % (Auto) 1.0, Baso % (Auto) 0.2, Absolute Neuts (auto) 7.0, Nucleated RBC % 0, Sodium 146 H, Potassium 4.4, Chloride 120 H, Carbon Dioxide 21.0, Anion Gap 5, BUN 64 H, Creatinine 2.23 H, Est GFR (MDRD) Af Amer 37 L, Est GFR (MDRD) Non-Af 30 L, BUN/Creatinine Ratio 28.7 H, Glucose 99, Calcium 6.6 L Rhythm: EKG: ECHO: Stress Test: Cardiac Cath: PCI: CT Surgery: Holter monitor: EPS: PPM: CXR: Chest CT Scan: Radiography Diagnostic Testing: Radiology Impression Carotid Duplex 09/13/23 23:36 Interpretation Summary Mild (<50%) stenosis right extracranial internal carotid. Severe (>70%) stenosis left extracranial internal carotid. Patent and antegrade vertebrals bilaterally. Ordering Physician: Benton Perez Referring Physician: Husam Deras Performed By: Sarika Esquivel RVT Echocardiogram 09/13/23 23:36 Interpretation Summary The left ventricular ejection fraction is 55 %. Stage 1 diastolic dysfunction. Severely dilated right ventricle. Moderately severe global right ventricular systolic dysfunction. Septal wall motion consistent with RV pressure and volume overload The right atrium is moderately enlarged. Mild tricuspid valve insufficiency. Right ventricular systolic pressure estimated to be 47 mmHg. Ordering Physician: Benton Perez Performed By: Amena Lee RDCS Humerus X-Ray 09/14/23 13:04 IMPRESSION: No acute fracture or dislocation identified in the left humerus. Electronically Signed: Adwoa Johnson MD at 14:25 EST , Physical Exam Narrative Comfortable. No apparent distress. Heart sounds 1 and 2 are normal. Chest clear to auscultation bilaterally. Alert oriented x 3. No ankle edema. Assessment & Plan Assessment/Plan (1) Elevated troponin: PLAN: In the setting of acute renal failure. No chest pain or shortness of breath reported. Normal left ventricular systolic function. Dilated right ventricle. D-dimer is elevated. Check VQ scan. (2) Coronary artery disease: PLAN: History of CABG. See #1 above. Continue aspirin. (3) Right ventricular systolic dysfunction without heart failure: PLAN: Awaiting previous hospitalization records from [facility]. (4) ALEX (acute kidney injury): PLAN: Nephrology on consult. Creatinine improving. (5) Syncope and collapse: PLAN: Normal LV systolic function. Dilated right ventricle. See #1 2 and 3 above.
--- NOTE | 2023-09-15 09:07 | PCM.PN.HOSP ---
Reason for Visit Reason for Visit: Diagnoses Atherosclerotic heart disease of [place] coronary artery without angina pectoris (09/13/23) Other ill-defined heart diseases (09/13/23) Acute kidney failure, unspecified (09/13/23) Syncope and collapse (09/13/23) Other specified abnormal findings of blood chemistry (09/13/23) Subjective Subjective Patient is an 82-year-old gentleman admitted with progressive generalized weakness and syncopal episode found to be in acute renal failure with elevated troponin consistent with acute non-STEMI admitted to a monitored bed for further management Objective Data Objective Data Vital Signs: Vital Signs Temp Pulse Resp BP Pulse Ox O2 Del Method O2 Flow Rate 97.2 F L 64 30 H 133/65 H 99 Room Air 2 09/15/23 08:00 09/15/23 08:00 09/15/23 08:52 09/15/23 08:00 09/15/23 08:52 09/15/23 08:52 09/15/23 07:00 FiO2 2 09/14/23 21:11 Oxygen Flow Rate (L/min) 2 Oxygen Delivery Method Room Air Weight: 108.8 kg Body Mass Index (BMI) 34.4 Intake & Output: Intake and Output for Last 24 Hours 09/13/23 09/14/23 09/15/23 23:59 23:59 23:59 Intake Total 1050 / 1050 3465 / 3465 1050 / 1050 Output Total 0 / 0 1129 / 1129 450 / 450 Balance 1050 / 1050 2336 / 2336 600 / 600 Lab / Micro Data 09/15/23 03:33 09/15/23 03:33 Labs: Laboratory Results - last 24 hr 09/14/23 13:25: D-Dimer Quant (PE/DVT) > 20.00 H* 09/15/23 03:33: WBC 8.2, RBC 4.13 L, Hgb 12.4 L, Hct 39.1 L, MCV 94.7 H, MCH 30.0, MCHC 31.7 L, RDW Std Deviation 50.2 H, RDW Coeff of [place] 14.5, Plt Count 88 L, MPV 11.8, Immature Gran % (Auto) 0.500, Neut % (Auto) 85.2 H, Lymph % (Auto) 6.6 L, [place] % (Auto) 6.5, Eos % (Auto) 1.0, Baso % (Auto) 0.2, Absolute Neuts (auto) 7.0, Absolute Lymphs (auto) 0.54 L, Nucleated RBC % 0, Differential Comment SCANNED, Toxic Granulation 3+, Platelet Estimate MOD DEC, Sodium 146 H, Potassium 4.4, Chloride 120 H, Carbon Dioxide 21.0, Anion Gap 5, BUN 64 H, Creatinine 2.23 H, Estim Creat Clear Calc 26.82, Est GFR (MDRD) Af Amer 37 L, Est GFR (MDRD) Non-Af 30 L, BUN/Creatinine Ratio 28.7 H, Glucose 99, Calcium 6.6 L Radiography Diagnostic Testing: Radiology Impression Carotid Duplex 09/13/23 23:36 Interpretation Summary Mild (<50%) stenosis right extracranial internal carotid. Severe (>70%) stenosis left extracranial internal carotid. Patent and antegrade vertebrals bilaterally. Ordering Physician: Benton Perez Referring Physician: Husam Deras Performed By: Sarika Esquivel RVT Echocardiogram 09/13/23 23:36 Interpretation Summary The left ventricular ejection fraction is 55 %. Stage 1 diastolic dysfunction. Severely dilated right ventricle. Moderately severe global right ventricular systolic dysfunction. Septal wall motion consistent with RV pressure and volume overload The right atrium is moderately enlarged. Mild tricuspid valve insufficiency. Right ventricular systolic pressure estimated to be 47 mmHg. Ordering Physician: Benton Perez Performed By: Amena Lee RDCS Humerus X-Ray 09/14/23 13:04 IMPRESSION: No acute fracture or dislocation identified in the left humerus. Electronically Signed: Adwoa Johnson MD at 14:25 EST , Rhythm Strip Rhythm Strip: Sinus Rhythm Physical Exam Narrative GENERAL: cooperative HEENT: Atraumatic; normocephalic EYES; Anicteric, Normal Conjunctiva NECK; supple, normal thyroid, RESPIRATORY: Diminished to auscultation CARDIOVASCULAR: Regular S1 S2, GI: soft, normoactive bowel sounds, : No Renal angle tenderness; EXTREMITIES: No edema, no clubbing, MUSCULOSKELETAL: no muscle wasting NEURO: Awake; no lateralizing signs. SKIN: No Rash PSYCH; Flat affect Assessment & Plan Assessment/Plan (1) Syncope and collapse: (2) Elevated troponin: PLAN: Plan Patient is an 82-year-old gentleman admitted with progressive generalized weakness and syncopal episode found to be in acute renal failure with elevated troponin consistent with acute non-STEMI admitted to a monitored bed for further management 1. Syncopal episode ? Thought to be related to severe dehydration. Patient presented with acute renal failure admitted to the intensive care unit where patient has since been manage 2. Acute kidney injury ? Patient creatinine from recent hospitalization was 1.12. Creatinine on admission was 5.76. Admitted to the intensive care unit started on IV fluid with consultation placed to nephrology potential nephrotoxic medications discontinued patient started on fluid with subsequent monitoring of electrolytes 3. Acute non-STEMI ? Patient currently being managed with medical therapy for now. Seen in consultation by cardiology left heart catheterization deferred pending improvement in kidney function 4. Elevated D-dimer ? Patient started on therapeutic heparin ordered bilateral venous duplex as well as VQ scan 5. Coronary artery disease ? With previous CABG 6. Essential hypertension ? Patient was on HCTZ and lisinopril discontinued in view of impaired kidney function patient amlodipine and atenolol did continue 7. Hypothyroidism - Patient is on levothyroxine home dose continued 8. Dyslipidemia -Patient is on statin therapy, continued at home dose 9. BPH with lower urinary obstruction - Patient treated with tamsulosin 10. DVT prophylaxis ? Patient is on heparin Time spent in the patient's overall evaluation,decision-making process, review of diagnostic data, adjustment of management, discussion with other providers, nursing nursing and ancillary staff involved in patient's care documentation, 55 minutes Charges/Coding Visit Charges Inpatient E&M: 77256 [facility] L3
--- NOTE | 2023-09-15 09:10 | VDLE_ITS ---
Reason For Study: Elevated D Dimer RIGHT LEFT GSV is normal. GSV is normal. CFV is compressible, spontaneous, phasic, CFV is compressible, spontaneous, phasic, competent and demonstrates normal competent, and demonstrates normal augmentation. augmentation. Acute deep vein thrombosis is noted in the FV is compressible, spontaneous, phasic, FV. It is dilated and NONCOMPRESSIBLE. competent and demonstrates normal Acute deep vein thrombosis is noted in the augmentation. POP V. It is dilated and NONCOMPRESSIBLE. POP V is compressible, spontaneous, phasic, Acute deep vein thrombosis is noted in the competent and demonstrates normal T/P Trunk. It is dilated and NONCOMPRESSIBLE. augmentation. Acute deep vein thrombosis is noted in the T/P Trunk is compressible. Gastrocnemius V. It is dilated and PTV is compressible. NONCOMPRESSIBLE. LT PerV is compressible. Acute deep vein thrombosis is noted in the PTV. It is dilated and NONCOMPRESSIBLE. Acute deep vein thrombosis is noted in the Soleal V. It is dilated and NONCOMPRESSIBLE. RT PerV is compressible. Procedure This is a venous duplex using B-mode, color flow and spectral Doppler. Exam performed in department. The exam was diagnostic. A preliminary report was called and/or faxed to [facility]. VL/Venous Duplex US - Freddy Extrem Interpretation Summary Acute deep vein thrombosis is noted in the right femoral vein, popliteal vein, tibioperoneal trunk vein, gastrocnemius vein, posterior tibial vein, soleal vein. Deep veins of the left lower extremity are patent and compressible segmentally. There is no evidence of left lower extremity deep vein thrombosis. The bilateral great saphenous vei ns appear patent and compressible segmentally Ordering Physician: Benton Quesada Referring Physician: Husam Deras Performed By: Erick Horvath RVT
--- NOTE | 2023-09-15 09:18 | PCM.PN.REN ---
Subjective Subjective No new complaints today. Still has left arm pain, this is a site he fell on when he passed out. No breathing issues. Asking about going home. Objective Data Objective Data Vital Signs: Vital Signs Temp Pulse Resp BP Pulse Ox O2 Del Method O2 Flow Rate 97.2 F L 64 30 H 133/65 H 99 Room Air 2 09/15/23 08:00 09/15/23 08:00 09/15/23 08:52 09/15/23 08:00 09/15/23 08:52 09/15/23 08:52 09/15/23 07:00 FiO2 2 09/14/23 21:11 Oxygen Flow Rate (L/min) 2 Oxygen Delivery Method Room Air Weight: 108.8 kg Body Mass Index (BMI) 34.4 Intake & Output: Intake and Output for Last 24 Hours 09/13/23 09/14/23 09/15/23 23:59 23:59 23:59 Intake Total 1050 / 1050 3465 / 3465 1050 / 1050 Output Total 0 / 0 1129 / 1129 450 / 450 Balance 1050 / 1050 2336 / 2336 600 / 600 Lab / Micro Data 09/15/23 03:33 09/15/23 03:33 Labs: Laboratory Results - last 24 hr 09/14/23 13:25: D-Dimer Quant (PE/DVT) > 20.00 H* 09/15/23 03:33: WBC 8.2, RBC 4.13 L, Hgb 12.4 L, Hct 39.1 L, MCV 94.7 H, MCH 30.0, MCHC 31.7 L, RDW Std Deviation 50.2 H, RDW Coeff of [place] 14.5, Plt Count 88 L, MPV 11.8, Immature Gran % (Auto) 0.500, Neut % (Auto) 85.2 H, Lymph % (Auto) 6.6 L, [place] % (Auto) 6.5, Eos % (Auto) 1.0, Baso % (Auto) 0.2, Absolute Neuts (auto) 7.0, Absolute Lymphs (auto) 0.54 L, Nucleated RBC % 0, Differential Comment SCANNED, Toxic Granulation 3+, Platelet Estimate MOD DEC, Sodium 146 H, Potassium 4.4, Chloride 120 H, Carbon Dioxide 21.0, Anion Gap 5, BUN 64 H, Creatinine 2.23 H, Estim Creat Clear Calc 26.82, Est GFR (MDRD) Af Amer 37 L, Est GFR (MDRD) Non-Af 30 L, BUN/Creatinine Ratio 28.7 H, Glucose 99, Calcium 6.6 L Radiography Diagnostic Testing: Radiology Impression Carotid Duplex 09/13/23 23:36 Interpretation Summary Mild (<50%) stenosis right extracranial internal carotid. Severe (>70%) stenosis left extracranial internal carotid. Patent and antegrade vertebrals bilaterally. Ordering Physician: Benton Perez Referring Physician: Husam Deras Performed By: Sarika Esquivel RVT Echocardiogram 09/13/23 23:36 Interpretation Summary The left ventricular ejection fraction is 55 %. Stage 1 diastolic dysfunction. Severely dilated right ventricle. Moderately severe global right ventricular systolic dysfunction. Septal wall motion consistent with RV pressure and volume overload The right atrium is moderately enlarged. Mild tricuspid valve insufficiency. Right ventricular systolic pressure estimated to be 47 mmHg. Ordering Physician: Benton Perez Performed By: Amena Lee, [facility] Humerus X-Ray 09/14/23 13:04 IMPRESSION: No acute fracture or dislocation identified in the left humerus. Electronically Signed: Adwoa Johnson MD at 14:25 EST , Rhythm Strip Rhythm Strip: Sinus Rhythm Physical Exam Narrative Alert awake oriented x 3 no obvious distress no pallor no icterus no JVD s1s2 no murmurs lungs clear abdomen soft no organomegaly no edema no cyanosis ortiz + Assessment & Plan Assessment/Plan (1) ALEX (acute kidney injury): PLAN: Baseline creatinine was around 1.0-1.1. Even on the discharge day of 08/27/2023 his creatinine was around 1.1. Came with a creatinine of more than 5. Blood pressure was fairly low. Ortiz catheter indwelling, urine output has improved. Most likely volume depletion from use of lisinopril, Lasix, NSAIDs and associated diarrhea Urine analysis consistent with UTI, cultures final results are pending, currently on Zosyn Blood pressure is improved, creatinine is better. Ortiz catheter can be removed. At the time of discharge, hold Lasix and lisinopril.
[2023-09-15] MEDS: Piperacil/Tazobactam 3.375 GM in 0.9% Normal Saline (50mL MB+) 50 ML IV ×2 (09:20→23:21)
[2023-09-15] MEDS: Heparin Injection (Vial) 5,000 UNIT/ML VIAL 8000 UNIT IV (10:49)
[2023-09-15] MEDS: HEPARIN/D5w 25,000 UNITS 25,000 UNITS/250 ML IV.SOLN. 15 UNITS CONT INF (10:51)
[2023-09-15 11:16] LABS: Partial Thromboplast Time 30.5 Seconds (24.1-36.2)
[2023-09-15] MEDS: Lactated Ringers 1,000 ML 150 ML IV ×2 (12:51→20:42)
[2023-09-15] MEDS: Acetaminophen 325 MG Tablet 650 MG PO (12:52)
--- NOTE | 2023-09-15 13:28 | NURSING ---
pt report called to [facility] with no questions voiced. all belongings packed. pt in bed getting venous dupplex now
[2023-09-15 17:59] LABS: Partial Thromboplast Time 229.9 Seconds (24.1-36.2)
--- NOTE | 2023-09-15 18:02 | NURSING ---
PTT 229.9 @m 1800. heparin drip paused per protocol.
[2023-09-15] MEDS: Albuterol 2.5 MG/3 ML VIAL.NEB. INHALATION (20:10)
[2023-09-15] MEDS: Budesonide Respules 0.5 MG/2 ML AMPUL.NEB. INHALATION (20:10)
[2023-09-15] MEDS: 0.9% Normal Saline (250mL Bag) 250 ML 15 ML IV (23:21)
[2023-09-16] VITALS (8 sets, daily range): BP systolic 109–138; BP diastolic 50–64; PULSE 56–86; RESP 14–20; TEMP 36.1–36.6; O2SAT 93–98; BMI 34.9
[2023-09-16 02:24] LABS: Absolute Lymphocyte Count 0.85 X10^3/uL (0.83-4.51); Absolute Neutrophil Count 4.1 X10^3/uL (2.0-7.7); Basophil# 0.03 X10^3/uL; Basophil% 0.5 % (0-1); Eosinophil# 0.19 X10^3/uL; Eosinophils% 3.2 % (0-5); Hematocrit 37.7 % (40-54); Hemoglobin 12.1 g/dL (13.0-16.5); Lymphocyte # 0.85 X10^3/ul (0.83-4.51); Lymphocyte % 14.4 % (19-41); Mean Corp Hgb Conc 32.1 g/dL (32-36); Mean Corpuscular Hgb 29.9 pg (27.0-32.0); Mean Corpuscular Volume 93.1 fL (80-94); Mean Platelet Vol. 11.4 fl (6.2-12.0); Monocyte# 0.66 X10^3/uL; Monocyte% 11.2 % (0-10); NRBC Flagged by Analyzer 0 % (0-5); Neutrophil # 4.14 X10^3/uL (2.7-7.7); POSITIVE COUNT YES; Platelet Count 89 K/mm3 (150-450); RBC Distribution Width CV 14.3 % (11.6-14.6); RBC Distribution Width SD 49.1 fl (35.1-43.9); Red Blood Count 4.05 M/mm3 (4.6-6.2); White Blood Count 5.9 K/mm3 (4.4-11.0)
[2023-09-16 02:37] LABS: Partial Thromboplast Time 138.1 Seconds (24.1-36.2)
[2023-09-16 02:44] LABS: Anion Gap 4 (5-15); BUN 47 mg/dL (7-18); BUN/Creat Ratio 33.6 RATIO (10-20); Calcium,Total 7.8 mg/dL (8.5-10.1); Chloride 117 mmol/L (98-107); EST Glomerular Filtration Rate 52 mL/min (>60); Est Glom Filt Rate - Afr Amer 62 mL/min (>60); Estimated Creatinine Clearance 42.73 ml/min; Glucose 114 mg/dL (74-106); Magnesium 1.8 mg/dL (1.6-2.6); Phosphorus 2.6 mg/dL (2.5-4.9); Potassium 4.1 mmol/L (3.5-5.1); Sodium Level 145 mmol/L (136-145)
[2023-09-16] MEDS: HEPARIN/D5w 25,000 UNITS 25,000 UNITS/250 ML IV.SOLN. 9 UNITS CONT INF (04:30)
[2023-09-16] MEDS: Lactated Ringers 1,000 ML 150 ML IV ×3 (04:37→17:55)
[2023-09-16] MEDS: Piperacil/Tazobactam 3.375 GM in 0.9% Normal Saline (50mL MB+) 50 ML IV ×2 (05:22→13:54)
[2023-09-16] MEDS: Levothyroxine 75 MCG Tablet PO (06:24)
[2023-09-16] MEDS: Budesonide Respules 0.5 MG/2 ML AMPUL.NEB. INHALATION (07:24)
[2023-09-16] MEDS: Albuterol 2.5 MG/3 ML VIAL.NEB. INHALATION ×2 (07:24→13:21)
--- NOTE | 2023-09-16 08:28 | PCM.PN.HOSP ---
Reason for Visit Reason for Visit: Diagnoses Atherosclerotic heart disease of knik coronary artery without angina pectoris (09/13/23) Other ill-defined heart diseases (09/13/23) Acute kidney failure, unspecified (09/13/23) Syncope and collapse (09/13/23) Other specified abnormal findings of blood chemistry (09/13/23) Subjective Subjective Patient VQ scan was of low probability for pulmonary embolism, however venous duplex demonstrated Acute deep vein thrombosis is noted in the right femoral vein, popliteal vein, tibioperoneal trunk vein, gastrocnemius vein, posterior tibial vein, soleal vein. Plan is to switch patient from therapeutic heparin to apixaban Objective Data Objective Data Vital Signs: Vital Signs Temp Pulse Resp BP Pulse Ox O2 Del Method O2 Flow Rate 96.9 F L 56 L 20 H 134/55 H 97 Room Air 2 09/16/23 04:29 09/16/23 04:29 09/16/23 04:29 09/16/23 04:29 09/16/23 04:29 09/16/23 04:29 09/16/23 00:00 FiO2 2 09/14/23 21:11 Oxygen Flow Rate (L/min) 2 Oxygen Delivery Method Room Air Weight: 110.4 kg Body Mass Index (BMI) 34.9 Intake & Output: Intake and Output for Last 24 Hours 09/14/23 09/15/23 09/16/23 23:59 23:59 23:59 Intake Total 3465 / 3465 3987.5 / 3987.5 1128.0 / 1128.0 Output Total 1129 / 1129 2200 / 2200 175 / 175 Balance 2336 / 2336 1787.5 / 1787.5 953.0 / 953.0 Lab / Micro Data 09/16/23 00:12 09/16/23 00:12 Labs: Laboratory Results - last 24 hr 09/15/23 10:44: APTT 30.5 09/15/23 16:57: APTT 229.9 H* 09/16/23 00:12: WBC 5.9, RBC 4.05 L, Hgb 12.1 L, Hct 37.7 L, MCV 93.1, MCH 29.9, MCHC 32.1, RDW Std Deviation 49.1 H, RDW Coeff of [place] 14.3, Plt Count 89 L, MPV 11.4, Immature Gran % (Auto) 0.700, Neut % (Auto) 70.0, Lymph % (Auto) 14.4 L, [place] % (Auto) 11.2 H, Eos % (Auto) 3.2, Baso % (Auto) 0.5, Absolute Neuts (auto) 4.1, Absolute Lymphs (auto) 0.85, Nucleated RBC % 0, APTT 138.1 H*, Sodium 145, Potassium 4.1, Chloride 117 H, Carbon Dioxide 24.0, Anion Gap 4 L, BUN 47 H, Creatinine 1.40 H, Estim Creat Clear Calc 42.73, Est GFR (MDRD) Af Amer 62, Est GFR (MDRD) Non-Af 52 L, BUN/Creatinine Ratio 33.6 H, Glucose 114 H, Calcium 7.8 L, Phosphorus 2.6, Magnesium 1.8 Radiography Diagnostic Testing: Radiology Impression Lung Scan-VQ NM 09/15/23 06:19 IMPRESSION: 1. VERY LOW PROBABILITY FOR PULMONARY EMBOLUS (<10%) 99m Tc DTPA aerosol ventilation / 99m Tc MAA pulmonary perfusion imaging examination, according to PIOPED II interpretive criteria with regard given to the presence of > 2 ventilation-perfusion matches without corresponding radiographic changes. (Sotsman et al, Radiology 246: 941, 2008 Sotsman et al, J Nucl Med 49: 1741, 2008). 2. Central clumping of the aerosol may be secondary to obstructive airway mechanics and or clinical tachypnea. Electronically Signed: Michael Figueroa DO at 13:07 EST , Venous Doppler Study 09/15/23 09:10 Interpretation Summary Acute deep vein thrombosis is noted in the right femoral vein, popliteal vein, tibioperoneal trunk vein, gastrocnemius vein, posterior tibial vein, soleal vein. Deep veins of the left lower extremity are patent and compressible segmentally. There is no evidence of left lower extremity deep vein thrombosis. The bilateral great saphenous veins appear patent and compressible segmentally Ordering Physician: Benton Quesada Referring Physician: Husam Deras Performed By: Erick Horvath RVT Rhythm Strip Rhythm Strip: Sinus Rhythm Physical Exam Narrative GENERAL: cooperative HEENT: Atraumatic; normocephalic EYES; Anicteric, Normal Conjunctiva NECK; supple, normal thyroid, RESPIRATORY: Diminished to auscultation CARDIOVASCULAR: Regular S1 S2, GI: soft, normoactive bowel sounds, : No Renal angle tenderness; EXTREMITIES: No edema, no clubbing, MUSCULOSKELETAL: no muscle wasting NEURO: Awake; no lateralizing signs. SKIN: No Rash PSYCH; Flat affect Assessment & Plan Assessment/Plan (1) Syncope and collapse: (2) Elevated troponin: PLAN: Plan Patient is an 82-year-old gentleman admitted with progressive generalized weakness and syncopal episode found to be in acute renal failure with elevated troponin consistent with acute non-STEMI admitted to a monitored bed for further management 1. Syncopal episode ? Thought to be related to severe dehydration. Patient presented with acute renal failure admitted to the intensive care unit where patient has since been managed 2. Acute kidney injury ? Patient creatinine from recent hospitalization was 1.12. Creatinine on admission was 5.76. Admitted to the intensive care unit started on IV fluid with consultation placed to nephrology potential nephrotoxic medications discontinued patient started on fluid with subsequent monitoring of electrolytes ? 09/16/2023; creatinine 1.4 3. Acute non-STEMI ? Patient currently being managed with medical therapy for now. Seen in consultation by cardiology left heart catheterization deferred pending improvement in kidney function 4. Elevated D-dimer ? Patient started on therapeutic heparin ordered bilateral venous duplex as well as VQ scan ? 09/16/2023. Patient VQ scan was of low probability for pulmonary embolism, however venous duplex demonstrated Acute deep vein thrombosis is noted in the right femoral vein, popliteal vein, tibioperoneal trunk vein, gastrocnemius vein, posterior tibial vein, soleal vein. Plan is to switch patient from therapeutic heparin to apixaban 5. Acute cystitis ? Present on admission patient started on broad-spectrum antibiotic therapy with Zosyn, culture still pending 6. Coronary artery disease ? With previous CABG 7. Essential hypertension ? Patient was on HCTZ and lisinopril discontinued in view of impaired kidney function patient amlodipine and atenolol did continue 8. Hypothyroidism - Patient is on levothyroxine home dose continued 9. 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 DVT prophylaxis ? Patient is on heparin Time spent in the patient's overall evaluation,decision-making process, review of diagnostic data, adjustment of management, discussion with other providers, nursing nursing and ancillary staff involved in patient's care documentation, 50 minutes Charges/Coding Visit Charges Inpatient E&M: [id number] [place] [id number]
[2023-09-16] MEDS: Aspirin E.C. 81 MG Tablet PO (08:35)
[2023-09-16] MEDS: Atenolol 25 MG Tablet PO (08:35)
[2023-09-16] MEDS: Gabapentin 400 MG Capsule PO (08:35)
[2023-09-16] MEDS: Loratadine 10 MG Tablet PO (08:35)
[2023-09-16] MEDS: Clopidogrel Bisulfate 75 MG Tablet PO (08:35)
[2023-09-16] MEDS: Psyllium 1 PACKET PO (08:35)
--- NOTE | 2023-09-16 11:04 | PCM.PN.REN ---
Documented by User: GINI Monroe 09/16/23 11:11 Subjective Subjective Sitting in chair, no complaints. Objective Data Objective Data Vital Signs: Vital Signs Temp Pulse Resp BP Pulse Ox O2 Del Method O2 Flow Rate 97.8 F 86 16 133/51 H 98 Room Air 2 09/16/23 10:09/16/23 10:09/16/23 10:09/16/23 10:09/16/23 10:09/16/23 10:09/16/23 00:00 FiO2 2 09/14/23 21:11 Oxygen Flow Rate (L/min) 2 Oxygen Delivery Method Room Air Weight: 110.4 kg Body Mass Index (BMI) 34.9 Intake & Output: Intake and Output for Last 24 Hours 09/14/23 09/15/23 09/16/23 23:59 23:59 23:59 Intake Total 3465 / 3465 3987.5 / 3987.5 2349.1 / 2349.1 Output Total 1129 / 1129 2200 / 2200 175 / 175 Balance 2336 / 2336 1787.5 / 1787.5 2174.1 / 2174.1 Lab / Micro Data 09/16/23 00:12 09/16/23 00:12 Labs: Laboratory Results - last 24 hr 09/15/23 10:44: APTT 30.5 09/15/23 16:57: APTT 229.9 H* 09/16/23 00:12: WBC 5.9, RBC 4.05 L, Hgb 12.1 L, Hct 37.7 L, MCV 93.1, MCH 29.9, MCHC 32.1, RDW Std Deviation 49.1 H, RDW Coeff of [place] 14.3, Plt Count 89 L, MPV 11.4, Immature Gran % (Auto) 0.700, Neut % (Auto) 70.0, Lymph % (Auto) 14.4 L, [place] % (Auto) 11.2 H, Eos % (Auto) 3.2, Baso % (Auto) 0.5, Absolute Neuts (auto) 4.1, Absolute Lymphs (auto) 0.85, Nucleated RBC % 0, APTT 138.1 H*, Sodium 145, Potassium 4.1, Chloride 117 H, Carbon Dioxide 24.0, Anion Gap 4 L, BUN 47 H, Creatinine 1.40 H, Estim Creat Clear Calc 42.73, Est GFR (MDRD) Af Amer 62, Est GFR (MDRD) Non-Af 52 L, BUN/Creatinine Ratio 33.6 H, Glucose 114 H, Calcium 7.8 L, Phosphorus 2.6, Magnesium 1.8 Micro: Microbiology 09/13/23 22:15 Urine, Catheterized Urine Culture - Final Culture exhibits no growth. Radiography Diagnostic Testing: Radiology Impression Lung Scan-VQ NM 09/15/23 06:19 IMPRESSION: 1. VERY LOW PROBABILITY FOR PULMONARY EMBOLUS (<10%) 99m Tc DTPA aerosol ventilation / 99m Tc MAA pulmonary perfusion imaging examination, according to PIOPED II interpretive criteria with regard given to the presence of > 2 ventilation-perfusion matches without corresponding radiographic changes. (Sotsman et al, Radiology 246: 941, 2008 Sozoila et al, J Nucl Med 49: 1741, 2008). 2. Central clumping of the aerosol may be secondary to obstructive airway mechanics and or clinical tachypnea. Electronically Signed: Michael Figueroa DO at 13:07 EST , Venous Doppler Study 09/15/23 09:10 Interpretation Summary Acute deep vein thrombosis is noted in the right femoral vein, popliteal vein, tibioperoneal trunk vein, gastrocnemius vein, posterior tibial vein, soleal vein. Deep veins of the left lower extremity are patent and compressible segmentally. There is no evidence of left lower extremity deep vein thrombosis. The bilateral great saphenous veins appear patent and compressible segmentally Ordering Physician: Benton Quesada Referring Physician: Husam Deras Performed By: Erick Horvath RVT Rhythm Strip Rhythm Strip: Sinus Rhythm Physical Exam Narrative Alert awake oriented x 3 s1s2 no murmurs lungs clear abdomen soft no organomegaly no edema Assessment & Plan Assessment/Plan (1) ALEX (acute kidney injury): PLAN: Baseline creatinine was around 1.0-1.1. Even on the discharge day of 08/27/2023 his creatinine was around 1.1. Came with a creatinine of 5.76. Blood pressure was fairly low, now improved. ALEX most likely from volume depletion from use of lisinopril, Lasix, NSAIDs and associated diarrhea. Overall renal function is improving and today serum creatinine down to 1.4. Good urine output, 2.2L yesterday. Urine analysis consistent with UTI, cultures no growth, currently on Zosyn Blood pressures improved At the time of discharge, hold Lasix and lisinopril. Documented by User: Dr. Kt Montesinos MD 09/16/23 17:20 Objective Data Lab / Micro Data 09/16/23 00:12 09/16/23 00:12 Assessment & Plan Assessment/Plan (1) ALEX (acute kidney injury): PLAN: Baseline creatinine was around 1.0-1.1. Even on the discharge day of 08/27/2023 his creatinine was around 1.1. Came with a creatinine of 5.76. Blood pressure was fairly low, now improved. ALEX most likely from volume depletion from use of lisinopril, Lasix, NSAIDs and associated diarrhea. Overall renal function is improving and today serum creatinine down to 1.4. Good urine output, 2.2L yesterday. Urine analysis consistent with UTI, cultures no growth, currently on Zosyn Blood pressures improved At the time of discharge, hold Lasix and lisinopril. agree with above
[2023-09-16 11:11] LABS: Partial Thromboplast Time 49.9 Seconds (24.1-36.2)
[2023-09-16] MEDS: APIXABAN 5 MG TABLET PO ×2 (11:19→19:46)
--- NOTE | 2023-09-16 11:39 | PCM.PN.CARD ---
Subjective Subjective Denies any complaints. Doppler ultrasound of lower extremity positive for extensive DVT. VQ scan low probability for PE however given history of DVT and dilated right ventricle, suspect pulmonary embolism. Objective Data Vital Signs: Vital Signs Temp Pulse Resp BP Pulse Ox O2 Del Method O2 Flow Rate 97.8 F 86 16 133/51 H 95 Room Air 2 09/16/23 10:29 09/16/23 10:29 09/16/23 10:29 09/16/23 10:09/16/23 10:30 09/16/23 10:09/16/23 00:00 FiO2 2 09/14/23 21:11 Oxygen Flow Rate (L/min) 2 Oxygen Delivery Method Room Air Weight: 243 lb 6.245 oz Body Mass Index (BMI) 34.9 Intake & Output: Intake and Output for Last 24 Hours 09/14/23 09/15/23 09/16/23 23:59 23:59 23:59 Intake Total 3465 / 3465 3987.5 / 3987.5 2594.1 / 2594.1 Output Total 1129 / 1129 2200 / 2200 1125 / 1125 Balance 2336 / 2336 1787.5 / 1787.5 1469.1 / 1469.1 Lab / Micro Data 09/16/23 00:12 09/16/23 00:12 Labs: Laboratory Results - last 24 hr 09/15/23 16:57: APTT 229.9 H* 09/16/23 00:12: WBC 5.9, RBC 4.05 L, Hgb 12.1 L, Hct 37.7 L, MCV 93.1, MCH 29.9, MCHC 32.1, RDW Std Deviation 49.1 H, RDW Coeff of [place] 14.3, Plt Count 89 L, MPV 11.4, Immature Gran % (Auto) 0.700, Neut % (Auto) 70.0, Lymph % (Auto) 14.4 L, [place] % (Auto) 11.2 H, Eos % (Auto) 3.2, Baso % (Auto) 0.5, Absolute Neuts (auto) 4.1, Absolute Lymphs (auto) 0.85, Nucleated RBC % 0, APTT 138.1 H*, Sodium 145, Potassium 4.1, Chloride 117 H, Carbon Dioxide 24.0, Anion Gap 4 L, BUN 47 H, Creatinine 1.40 H, Estim Creat Clear Calc 42.73, Est GFR (MDRD) Af Amer 62, Est GFR (MDRD) Non-Af 52 L, BUN/Creatinine Ratio 33.6 H, Glucose 114 H, Calcium 7.8 L, Phosphorus 2.6, Magnesium 1.8 09/16/23 10:40: APTT 49.9 H Micro: Microbiology 09/13/23 22:15 Urine, Catheterized Urine Culture - Final Culture exhibits no growth. Rhythm Strip Rhythm Strip: Sinus Rhythm Cardiology Labs/Tests 09/15/23 16:57: APTT 229.9 H* 09/16/23 00:12: WBC 5.9, RBC 4.05 L, Hgb 12.1 L, Hct 37.7 L, MCV 93.1, MCH 29.9, MCHC 32.1, Plt Count 89 L, MPV 11.4, Immature Gran % (Auto) 0.700, Neut % (Auto) 70.0, Lymph % (Auto) 14.4 L, [place] % (Auto) 11.2 H, Eos % (Auto) 3.2, Baso % (Auto) 0.5, Absolute Neuts (auto) 4.1, Nucleated RBC % 0, APTT 138.1 H*, Sodium 145, Potassium 4.1, Chloride 117 H, Carbon Dioxide 24.0, Anion Gap 4 L, BUN 47 H, Creatinine 1.40 H, Est GFR (MDRD) Af Amer 62, Est GFR (MDRD) Non-Af 52 L, BUN/Creatinine Ratio 33.6 H, Glucose 114 H, Calcium 7.8 L, Phosphorus 2.6, Magnesium 1.8 09/16/23 10:40: APTT 49.9 H Rhythm: EKG: ECHO: Stress Test: Cardiac Cath: PCI: CT Surgery: Holter monitor: EPS: PPM: CXR: Chest CT Scan: Radiography Diagnostic Testing: Radiology Impression Lung Scan-VQ TN 09/15/23 06:19 IMPRESSION: 1. VERY LOW PROBABILITY FOR PULMONARY EMBOLUS (<10%) 99m Tc DTPA aerosol ventilation / 99m Tc MAA pulmonary perfusion imaging examination, according to PIOPED II interpretive criteria with regard given to the presence of > 2 ventilation-perfusion matches without corresponding radiographic changes. (Sozoila et al, Radiology 246: 941, 2008 Sotsman et al, J Nucl Med 49: 1741, 2008). 2. Central clumping of the aerosol may be secondary to obstructive airway mechanics and or clinical tachypnea. Electronically Signed: Michael Figueroa DO at 13:07 EST , Venous Doppler Study 09/15/23 09:10 Interpretation Summary Acute deep vein thrombosis is noted in the right femoral vein, popliteal vein, tibioperoneal trunk vein, gastrocnemius vein, posterior tibial vein, soleal vein. Deep veins of the left lower extremity are patent and compressible segmentally. There is no evidence of left lower extremity deep vein thrombosis. The bilateral great saphenous veins appear patent and compressible segmentally Ordering Physician: Benton Quesada Referring Physician: Husam Deras Performed By: Erick Horvath RVT Physical Exam Narrative Comfortable. No apparent distress. Heart sounds 1 and 2 are normal. Chest clear to auscultation bilaterally. Alert oriented x 3. No ankle edema. Assessment & Plan Assessment/Plan (1) DVT of lower extremity (deep venous thrombosis): PLAN: Started on anticoagulation. Follow as per internal medicine. (2) Elevated troponin: PLAN: In the setting of acute renal failure. Dilated right ventricle. Even though VQ scan is low probability, RV dilatation together with extensive right lower extremity DVT still point towards possible PE. Started on anticoagulation. (3) Coronary artery disease: PLAN: History of CABG. See #1 above. Continue aspirin. (4) Right ventricular systolic dysfunction without heart failure: PLAN: Suspect pulmonary embolism. (5) ALEX (acute kidney injury): PLAN: Nephrology on consult. Creatinine improving. (6) Syncope and collapse: PLAN: Normal LV systolic function. Dilated right ventricle. See #1 2 and 3 above. PLAN: Plan No further cardiac input at this point in time. Will sign off. Please call if needed. Follow-up at the [facility] in 2 to 4 weeks after discharge home.
--- NOTE | 2023-09-16 12:49 | CASEMGMT ---
SW noted patient has no contacts listed in his chart. SW met with patient. Introduced self and role at [facility]. SW explained that if he were to become confused [facility] would have no one to contact to make medical decisions for him. SW explained that [facility] could possibly end up having to go to the courts to apply to be his guardian. SW explained that he would then have a stranger making his medical decisions and the process takes a lot of time. Patient said he has 2 daughters and a son. Patient said his son lives in [place] and he does what he wants to do. SW explained to patient that SW could complete a Healthcare Power of [employer] with patient and then [facility] would have someone to contact to make his medical decisions if needed. Patient declined. SW explained this situation a couple of times. Patient still declined stating he does not think he needs the document. SW again tried to help patient see the importance of the document and he was not interested. JEFFREY asked if could have the name of one of his children and SW could put it in SW's note, but not his contact list. At least that would give [facility] someone to call should he not be able to make his own medical decisions. Patient declined stating he doesn't want to do that. Patient said he will think aobut this. Marilyn WU
--- NOTE | 2023-09-16 15:00 | CASEMGMT ---
KEYA VÁZQUEZ NOTE: Therapy notes reviewed. Pt ambulated 140 ft w/ WW and CGA. Additional therapy recommended. KEYA VÁZQUEZ to room. Pt sitting up in chair in room. Discussed therapy's recommendations. Pt states he wishes to discharge home and feels he will be safe at home. He denies wanting HHC or OP therapy, stating No, I don't want that . He states he does not feel he needs therapy or a nurse to f/u with him. Pt to discharge home on Eliquis. KEYA VÁZQUEZ provided pt w/30-day Eliquis savings card and instructed on use. He was made aware if refills are not affordable to discuss this with his PCP. Pt states he would like to get his meds from [facility] Retail pharmacy and would like them delivered to his room. RNAlba, made aware. Pt made aware [facility] pharm closed at 1 PM on Tuesday. He states if they are not open then to have new meds sent to [facility] pharmacy. He states he has 2 ladies that live next door who can assist him if needed. Discussed CCN and Pt Link and he declines both. He states he manages his medications @ home and feels he does well with this. He states he thinks he got them mixed up at one time and forgot to take them, but that he has them straightened out now . Pt has been using a WW while @ [facility]. He states he thinks he has one @ home but is not sure and would like to get a new one. He denies having preference of DME co and is okay w/[employer]. Script obtained and sent to [facility] via [email or web address]. Pt to be provided w/WW from [facility] supply if he discharges home over the weekend. Green sheet placed on chart w/this info. Pt denies having other d/c planning needs/concerns. Pt did state his friend, Mahin, would be taking him home @ discharge. He does not want Mahin contacted for anything else and does not want any info given to him, but he did provide this KEYA VÁZQUEZ his phone # in case of emergency. Mahin: [phone]. Paulina BALDWINN KEYA VÁZQUEZ
--- NOTE | 2023-09-16 16:31 | NURSING ---
patient requests DC meds be sent to [facility] retail pharmacy to be picked up prior to pharmacy closing at 1 pm.
[2023-09-16] MEDS: Rosuvastatin Calcium 5 MG Tablet 10 MG PO (19:47)
[2023-09-16] MEDS: Tamsulosin HCl 0.4 MG Capsule 0.400000000000000022 MG PO (19:48)
[2023-09-17] MEDS: Lactated Ringers 1,000 ML 150 ML IV ×2 (01:00→07:45)
[2023-09-17 01:38] VITALS: BMI 35.0
[2023-09-17] MEDS: Levothyroxine 75 MCG Tablet PO (04:01)
[2023-09-17 04:45] VITALS: BP 157/55; PULSE 69; RESP 18; TEMP 36.8; O2SAT 96
[2023-09-17] MEDS: Albuterol 2.5 MG/3 ML VIAL.NEB. INHALATION (07:01)
[2023-09-17 07:02] VITALS: PULSE 70; RESP 18; O2SAT 95
[2023-09-17] MEDS: APIXABAN 5 MG TABLET PO (07:47)
[2023-09-17] MEDS: Loratadine 10 MG Tablet PO (07:47)
[2023-09-17] MEDS: Clopidogrel Bisulfate 75 MG Tablet PO (07:47)
[2023-09-17] MEDS: Aspirin E.C. 81 MG Tablet PO (07:47)
[2023-09-17] MEDS: Atenolol 25 MG Tablet PO (07:47)
--- NOTE | 2023-09-17 08:12 | PCM.PN.HOSP ---
Reason for Visit Reason for Visit: Diagnoses Atherosclerotic heart disease of [place] coronary artery without angina pectoris (09/13/23) Other ill-defined heart diseases (09/13/23) Acute embolism and thrombosis of unspecified deep veins of unspecified lower extremity (09/13/23) Acute kidney failure, unspecified (09/13/23) Syncope and collapse (09/13/23) Other specified abnormal findings of blood chemistry (09/13/23) Subjective Subjective Patient seen plan is for patient to be assessed for possible discharge Objective Data Objective Data Vital Signs: Vital Signs Temp Pulse Resp BP Pulse Ox O2 Del Method O2 Flow Rate 98.2 F 70 18 157/55 H 95 Room Air 2 09/17/23 04:45 09/17/23 07:02 09/17/23 07:02 09/17/23 04:45 09/17/23 07:02 09/17/23 07:02 09/16/23 00:00 FiO2 2 09/14/23 21:11 Oxygen Flow Rate (L/min) 2 Oxygen Delivery Method Room Air Weight: 110.8 kg Body Mass Index (BMI) 35.0 Intake & Output: Intake and Output for Last 24 Hours 09/15/23 09/16/23 09/17/23 23:59 23:59 23:59 Intake Total 3987.5 / 3987.5 4288.48 / 4288.48 2120 / 2120 Output Total 2200 / 2200 2675 / 2675 800 / 800 Balance 1787.5 / 1787.5 1613.48 / 1613.48 1320 / 1320 Lab / Micro Data 09/17/23 07:20 09/17/23 07:20 Labs: Laboratory Results - last 24 hr 09/16/23 10:40: APTT 49.9 H Micro: Microbiology 09/13/23 22:15 Urine, Catheterized Urine Culture - Final Culture exhibits no growth. Rhythm Strip Rhythm Strip: Sinus Rhythm Physical Exam Narrative GENERAL: cooperative HEENT: Atraumatic; normocephalic EYES; Anicteric, Normal Conjunctiva NECK; supple, normal thyroid, RESPIRATORY: Diminished to auscultation CARDIOVASCULAR: Regular S1 S2, GI: soft, normoactive bowel sounds, : No Renal angle tenderness; EXTREMITIES: No edema, no clubbing, MUSCULOSKELETAL: no muscle wasting NEURO: Awake; no lateralizing signs. SKIN: No Rash PSYCH; Flat affect Assessment & Plan Assessment/Plan (1) Syncope and collapse: (2) Elevated troponin: PLAN: Plan Patient is an 82-year-old gentleman admitted with progressive generalized weakness and syncopal episode found to be in acute renal failure with elevated troponin consistent with acute non-STEMI admitted to a monitored bed for further management 1. Syncopal episode ? Thought to be related to severe dehydration. Patient presented with acute renal failure admitted to the intensive care unit where patient has since been managed 2. Acute kidney injury ? Patient creatinine from recent hospitalization was 1.12. Creatinine on admission was 5.76. Admitted to the intensive care unit started on IV fluid with consultation placed to nephrology potential nephrotoxic medications discontinued patient started on fluid with subsequent monitoring of electrolytes ? 09/16/2023; creatinine 1.4 3. Acute non-STEMI ? Patient currently being managed with medical therapy for now. Seen in consultation by cardiology left heart catheterization deferred pending improvement in kidney function 4. Elevated D-dimer ? Patient started on therapeutic heparin ordered bilateral venous duplex as well as VQ scan ? 09/16/2023. Patient VQ scan was of low probability for pulmonary embolism, however venous duplex demonstrated Acute deep vein thrombosis is noted in the right femoral vein, popliteal vein, tibioperoneal trunk vein, gastrocnemius vein, posterior tibial vein, soleal vein. Plan is to switch patient from therapeutic heparin to apixaban 5. Acute cystitis ? Present on admission patient started on broad-spectrum antibiotic therapy with Zosyn, culture still pending 6. Coronary artery disease ? With previous CABG 7. Essential hypertension ? Patient was on HCTZ and lisinopril discontinued in view of impaired kidney function patient amlodipine and atenolol did continue 8. Hypothyroidism - Patient is on levothyroxine home dose continued 9. 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 DVT prophylaxis ? Patient is on apixaban Time spent in the patient's overall evaluation,decision-making process, review of diagnostic data, adjustment of management, discussion with other providers, nursing nursing and ancillary staff involved in patient's care documentation, 35 minutes Charges/Coding Visit Charges Inpatient E&M: 00754 Subs Hosp L2
[2023-09-17 08:30] LABS: Absolute Lymphocyte Count 1.25 X10^3/uL (0.83-4.51); Absolute Neutrophil Count 4.3 X10^3/uL (2.0-7.7); Basophil# 0.03 X10^3/uL; Basophil% 0.5 % (0-1); Eosinophil# 0.16 X10^3/uL; Eosinophils% 2.5 % (0-5); Hematocrit 35.7 % (40-54); Hemoglobin 11.5 g/dL (13.0-16.5); Lymphocyte # 1.25 X10^3/ul (0.83-4.51); Lymphocyte % 19.3 % (19-41); Mean Corp Hgb Conc 32.2 g/dL (32-36); Mean Corpuscular Hgb 29.8 pg (27.0-32.0); Mean Corpuscular Volume 92.5 fL (80-94); Mean Platelet Vol. 11.6 fl (6.2-12.0); Monocyte# 0.71 X10^3/uL; Monocyte% 10.9 % (0-10); NRBC Flagged by Analyzer 0 % (0-5); Neutrophil # 4.28 X10^3/uL (2.7-7.7); Neutrophil % 65.9 % (47-70); Platelet Count 127 K/mm3 (150-450); RBC Distribution Width CV 14.5 % (11.6-14.6); RBC Distribution Width SD 48.7 fl (35.1-43.9); Red Blood Count 3.86 M/mm3 (4.6-6.2); White Blood Count 6.5 K/mm3 (4.4-11.0)
[2023-09-17 09:07] LABS: Anion Gap 6 (5-15); BUN 23 mg/dL (7-18); Chloride 116 mmol/L (98-107); Creatinine, Serum 0.85 mg/dL (0.70-1.30); EST Glomerular Filtration Rate 92 mL/min (>60); Est Glom Filt Rate - Afr Amer 111 mL/min (>60); Estimated Creatinine Clearance 70.38 ml/min; Glucose 92 mg/dL (74-106); Potassium 3.9 mmol/L (3.5-5.1); Sodium Level 145 mmol/L (136-145)
[2023-09-17] MEDS: Gabapentin 400 MG Capsule PO (09:26)
[2023-09-17 10:45] VITALS: BP 141/100; PULSE 63; RESP 14; TEMP 36.6; O2SAT 97
--- NOTE | 2023-09-17 11:55 | DS.PCM_ITS ---
Providers Date of Admission: 09/13/23 Date of Discharge: 09/17/23 Primary Care Physician: Dr. Husam Deras, DO Consultations 09/13/23 23:37 Consult: Cardiology Routine Consulting Provider: [facility] Reason for Consult: Elevated troponin and syncope in patient with history of CABG. EMERGENT Consult: No Notified: Yes Date Notified: 09/13/23 Time Notified: 23:37 Method of Notification: Text Method of Consult:: In-Person 09/14/23 00:20 Consult: Nephrology Routine Consulting Provider: Kt Montesinos Reason for Consult: Severe ARF. EMERGENT Consult: No MD Notified: Yes Date Notified: 09/13/23 Time Notified: 23:37 Method of Notification: Answering Service Reason For Visit: SEVERE ARF, UTI, SYNCOPE & NSTEMI W/METABOLIC Diagnosis Discharge Diagnosis (1) Syncope and collapse: Status: Acute Code(s): R55 - Syncope and collapse (2) Elevated troponin: Status: Acute Code(s): R79.89 - Other specified abnormal findings of blood chemistry Plan Patient is an 82-year-old gentleman admitted with progressive generalized weakness and syncopal episode found to be in acute renal failure with elevated troponin consistent with acute non-STEMI admitted to a monitored bed for further management 1. Syncopal episode ? Thought to be related to severe dehydration. Patient presented with acute renal failure admitted to the intensive care unit where patient has since been managed 2. Acute kidney injury ? Patient creatinine from recent hospitalization was 1.12. Creatinine on admission was 5.76. Admitted to the intensive care unit started on IV fluid with consultation placed to nephrology potential nephrotoxic medications discontinued patient started on fluid with subsequent monitoring of electrolytes ? 09/16/2023; creatinine 1.4 3. Acute non-STEMI ? Patient currently being managed with medical therapy for now. Seen in consultation by cardiology left heart catheterization deferred pending improvement in kidney function 4. Elevated D-dimer ? Patient started on therapeutic heparin ordered bilateral venous duplex as well as VQ scan ? 09/16/2023. Patient VQ scan was of low probability for pulmonary embolism, however venous duplex demonstrated Acute deep vein thrombosis is noted in the right femoral vein, popliteal vein, tibioperoneal trunk vein, gastrocnemius vein, posterior tibial vein, soleal vein. Plan is to switch patient from therapeutic heparin to apixaban 5. Acute cystitis ? Present on admission patient started on broad-spectrum antibiotic therapy with Zosyn, culture still pending 6. Coronary artery disease ? With previous CABG 7. Essential hypertension ? Patient was on HCTZ and lisinopril discontinued in view of impaired kidney function patient amlodipine and atenolol did continue 8. Hypothyroidism - Patient is on levothyroxine home dose continued 9. 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 DVT prophylaxis ? Patient is on apixaban Time spent in the patient's overall evaluation,decision-making process, review of diagnostic data, adjustment of management, discussion with other providers, nursing nursing and ancillary staff involved in patient's care documentation, 35 minutes Medications at Discharge Home Medications aspirin 81 mg tablet,delayed release 81 mg PO DAILY@0800 10/10/17 atenolol 25 mg tablet 25 mg PO DAILY blood pressure 10/10/17 meclizine 25 mg tablet 25 mg PO PRN PRN Dizziness 10/10/17 lisinopril 30 mg tablet 20 mg PO BID blood pressure 10/07/18 cetirizine 10 mg tablet 10 mg PO DAILY allergies 11/03/21 gabapentin 400 mg capsule 400 mg PO BID neuropathy 11/03/21 levothyroxine 75 mcg tablet 100 mcg PO DAILY thyroid 12/24/21 omega-3 fatty acids 1,000 mg PO DAILY 12/24/21 psyllium husk 0.4 gram capsule (Daily Fiber) 0.4 g PO DAILY fiber 12/24/21 tamsulosin 0.4 mg capsule 0.4 mg PO BID prostate 12/24/21 tramadol 50 mg tablet 50 mg PO Q6H PRN pain 3 days #10 tabs 12/28/21 albuterol sulfate 90 mcg/actuation aerosol inhaler 1 inh inhalation Q4H PRN sob/wheezing 09/14/23 amlodipine 10 mg tablet 10 mg PO DAILY bloodpressure 09/14/23 fluticasone 100 mcg-salmeterol 50 mcg/dose blistr powdr for inhalation 1 inh inhalation Q12H copd 09/14/23 gabapentin 800 mg tablet 800 mg PO QHS gabapentin 09/14/23 nitroglycerin 0.4 mg sublingual tablet 0.4 mg sublingual Q5M chest pain 09/14/23 rosuvastatin 10 mg tablet 10 mg PO QHS cholesterol 09/14/23 apixaban 5 mg tablet (Eliquis) 5 mg PO BID 60 days #120 tabs 09/17/23 Hospital Course Summary of Care Provided Minutes Spent on Discharge: 35 Physical Exam Narrative GENERAL: cooperative HEENT: Atraumatic; normocephalic EYES; Anicteric, Normal Conjunctiva NECK; supple, normal thyroid, RESPIRATORY: Diminished to auscultation CARDIOVASCULAR: Regular S1 S2, GI: soft, normoactive bowel sounds, : No Renal angle tenderness; EXTREMITIES: No edema, no clubbing, MUSCULOSKELETAL: no muscle wasting NEURO: Awake; no lateralizing signs. SKIN: No Rash PSYCH; Flat affect Weight / BMI Weight Weight: 110.8 kg Body Mass Index (BMI) 35.0 ABG / Lab / Microbiology Data 09/17/23 07:20 09/17/23 07:20 Laboratory: Laboratory Results - last 24 hr 09/17/23 07:20: WBC 6.5, RBC 3.86 L, Hgb 11.5 L, Hct 35.7 L, MCV 92.5, MCH 29.8, MCHC 32.2, RDW Std Deviation 48.7 H, RDW Coeff of [place] 14.5, Plt Count 127 L, MPV 11.6, Immature Gran % (Auto) 0.900, Neut % (Auto) 65.9, Lymph % (Auto) 19.3, [place] % (Auto) 10.9 H, Eos % (Auto) 2.5, Baso % (Auto) 0.5, Absolute Neuts (auto) 4.3, Absolute Lymphs (auto) 1.25, Nucleated RBC % 0, Sodium 145, Potassium 3.9, Chloride 116 H, Carbon Dioxide 23.0, Anion Gap 6, BUN 23 H, Creatinine 0.85, Estim Creat Clear Calc 70.38, Est GFR (MDRD) Af Amer 111, Est GFR (MDRD) Non-Af 92, BUN/Creatinine Ratio 27.0 H, Glucose 92, Calcium 8.0 L Microbiology: Microbiology 09/13/23 22:15 Urine, Catheterized Urine Culture - Final Culture exhibits no growth. D/C Instructions Discharge Diet: Low fat / Low cholesterol Discharge Activity: Return to Normal Activity Call your doctor if you observe: Fever of 101 or Higher, Shortness of breath, Fainting spells and Chest pain Meaningful Use Info Meaningful Use Diagnoses (Choose all that apply): None applicable Discharge Plan Admission Admit Date/Time: 09/13/23 23:30 Attending Provider: Benton Quesada Primary Care Provider: Husam Deras Consulting Providers: Benton Perez; Giorgio Robb; Cecilia Hurley; Dorina Alexander; Keaton Quintana; Tolu Diaz; Ben Mckeon; Wes Wilson; Castillo Boo; Les Hernandes; Curtis Jacobsen; Clarke Sales; Salazar Cano; Frandy Noble; Lexi Anders; Thong Holm; Ayush Ozuna; Mehul Adamson; Corwin Gomez; Jacques Neal G[employer]IN OILSEED OR PA[employer]URE FARM WORKER; Cecilia Pascual GRAIN OILSEED OR PASTURE FARM WORKER; Renay Haddad PA; Kt Montesinos Discharge Orders/Prescriptions Prescriptions: New Eliquis 5 mg Tablet 5 mg PO BID 60 Days Qty: 120 0RF Continued atenolol 25 MG tablet 25 mg PO DAILY aspirin 81 MG tablet 81 mg PO DAILY@0800 Hold Instructions: Resume on 12/30/21. meclizine 25 MG tablet 25 mg PO PRN PRN (Reason: Dizziness) lisinopril 30 MG tablet 20 mg PO BID cetirizine 10 mg tablet 10 mg PO DAILY Patient Comments: TAKE 1 TABLET BY MOUTH ONCE DAILY gabapentin 400 mg capsule 400 mg PO BID Rx Instructions: pt takes 400mg am and afternoon then 800mg at hs levothyroxine 75 mcg Tablet 100 mcg PO DAILY Rx Instructions: pt takes 1 100mcg tab x5days then 2 tabs x2days omega-3 fatty acids Capsule 1,000 mg PO DAILY psyllium husk [Daily Fiber] 0.4 gram Capsule 0.4 g PO DAILY tamsulosin 0.4 mg Capsule 0.4 mg PO BID tramadol 50 mg tablet 50 mg PO Q6H PRN (Reason: pain) 3 Days Qty: 10 0RF amlodipine 10 mg tablet 10 mg PO DAILY fluticasone propion-salmeterol 100-50 mcg/dose blister with device 1 inh INHALATION Q12H rosuvastatin 10 mg tablet 10 mg PO QHS nitroglycerin 0.4 mg tablet, sublingual 0.4 mg sublingual Q5M Patient Comments: DISSOLVE ONE TABLET UNDER THE TONGUE EVERY 5 MINUTES FOR 3 TIMES NEEDED FOR CHEST PAIN. gabapentin 800 mg tablet 800 mg PO QHS albuterol sulfate 90 mcg/actuation HFA aerosol inhaler 1 inh INHALATION Q4H PRN (Reason: sob/wheezing) Discontinued hydrochlorothiazide 12.5 MG tablet 12.5 mg PO DAILY meloxicam [Mobic] 7.5 mg Tablet 7.5 mg PO DAILY furosemide 20 mg tablet 20 mg PO DAILY Referrals / Follow Up: Husam Deras DO [Primary Care Provider] - Within 1 Week Disposition Disposition (needs filled in before D/C Order can be placed): Home Health Service Charges/Coding Visit Charges Inpatient E&M: 09458 Disch Hosp >30min
== END 2023-09-17 13:14 | disposition home or self-care (01) | DRG 871 ==
LOC: ED 22:41 → ICU 23:47 → PCU 09-15 14:15
PROVIDERS: Family Medicine; Internal Medicine Cardiovascular Disease; Admitting Provider Internal Medicine; Emergency Provider Student in an Organized Health Care Education/Training Program; PCP Student in an Organized Health Care Education/Training Program; Visit Provider Internal Medicine
DX: A41.9 Sepsis, unspecified organism (principal); I26.99 Other pulmonary embolism without acute cor pulmonale; I21.4 Non-ST elevation (NSTEMI) myocardial infarction; G93.41 Metabolic encephalopathy; I22.2 Subsequent non-ST elevation (NSTEMI) myocardial infarction; I82.411 Acute embolism and thrombosis of right femoral vein; N17.9 Acute kidney failure, unspecified; I82.431 Acute embolism and thrombosis of right popliteal vein; I82.441 Acute embolism and thrombosis of right tibial vein; I82.451 Acute embolism and thrombosis of right peroneal vein; N30.00 Acute cystitis without hematuria; I82.461 Acute embolism and thrombosis of right calf muscular vein; I10 Essential (primary) hypertension; E03.9 Hypothyroidism, unspecified; E86.0 Dehydration; I25.10 Atherosclerotic heart disease of native coronary artery without angina pectoris; E78.5 Hyperlipidemia, unspecified; E66.9 Obesity, unspecified; N13.9 Obstructive and reflux uropathy, unspecified; T46.4X5A Adverse effect of angiotensin-converting-enzyme inhibitors, initial encounter; T50.1X5A Adverse effect of loop [high-ceiling] diuretics, initial encounter; T39.395A Adverse effect of other nonsteroidal anti-inflammatory drugs [NSAID], initial encounter; N40.1 Benign prostatic hyperplasia with lower urinary tract symptoms; R55 Syncope and collapse; Z68.33 Body mass index [BMI] 33.0-33.9, adult; Z79.82 Long term (current) use of aspirin; Z79.890 Hormone replacement therapy; Z79.899 Other long term (current) drug therapy; Z87.891 Personal history of nicotine dependence; Z95.1 Presence of aortocoronary bypass graft
CPT/HCPCS: 36415; 51702; 70450; 71045; 72125; 73060; 78582; 80048; 80053; 81001; 83605; 83735; 83880; 84100; 84443; 84484; 85025; 85379; 85730; 87086; 93005; 93306; 93880; 93970; 94640; 94762; 97116; 97163; 97166; 97530; 97535; 99252; 99285; A9540; A9567; J7030; J7050; J7120; Q9957; A4216; C8929; G0463

== ENCOUNTER 2023-10-21 12:43 | Inpatient (IN) | payer MEDICARE, MEDICAID, SELFPAY ==
[2023-10-21] VITALS (7 sets, daily range): BP systolic 95–158; BP diastolic 44–81; PULSE 54–97; RESP 14–18; TEMP 35.5–36.1; O2SAT 94–97; BMI 31.4; BMI 32.0
--- NOTE | 2023-10-21 13:00 | CT_ITS ---
STUDY: CT BRAIN WITHOUT CONTRAST REASON FOR EXAM: Male, 82 years old. Lightheaded RADIATION DOSAGE (If Supplied By Facility): CTDIvol = ( 44.99 ) mGy, DLP = ( 829.85 ) mGycm TECHNIQUE: Transaxial CT imaging of the brain was performed without administration of intravenous contrast material. Individualized dose optimization techniques were used for this CT. COMPARISON: Comparison is made with prior study dated March 13, 2024. FINDINGS: Normal soft tissue structures. Normal calvarium. There is moderate cerebral atrophy with widening of the extra-axial spaces and ventricular dilatation. Normal white matter tracts of the cerebral hemispheres. Normal basal ganglia and thalami. Normal brainstem. Normal cerebellum. There is no intracranial hemorrhage. There are no findings of an acute ischemic infarction. Normal visualized paranasal sinuses. CT/Brain/Head without Contrast IMPRESSION: Chronic involutional changes of the brain. Electronically Signed: Erick Hudson MD at 13:54 EST ,
--- NOTE | 2023-10-21 13:00 | EDS_ITS ---
HPI <GENIE Villegas - Last Filed: 10/21/23 18:21> History of Present Illness Chief Complaint: Dizziness Narrative Narrative: 82-year-old male with PMH of CHF, CABG, DVT states he had a fall in 08/26/23 with a subdural hematoma and was transferred to [facility]. Since he was discharged home he never felt right and feels lightheaded with walking and uses a cane. He has not had any more falls. No syncope, chest pain, or shortness of breath. His feeling of lightheadedness and off-balance with walking is constant and unchanged he is just fed up with it and decided to call the paramedics today. He was able to walk to the cot using his cane without a ssistance. He denies headache or visual speech changes. He does not know much about his health history but states he is taking multiple medications. He states he has not followed up with his PCP after discharge from the hospital. PFSH <GENIE Villegas - Last Filed: 10/21/23 18:21> [facility] Medical History (Updated 10/21/23 @ 17:[address] Kajal Justice MD) Arthritis Back pain BPH (benign prostatic hyperplasia) Cardiology follow-up encounter Chronic obstructive pulmonary disease (COPD) Coronary artery disease Easy bruising Former smoker History of irregular heartbeat History of stress test Leg cramps Thyroid disease Wears glasses Wears hearing aid Wears partial dentures Home Medications aspirin 81 mg tablet,delayed release 81 mg PO DAILY@0800 10/10/17 [History Last Taken 10/11/17] atenolol 25 mg tablet 25 mg PO DAILY blood pressure 10/10/17 [History Last Taken 10/21/23] meclizine 25 mg tablet 25 mg PO PRN PRN Dizziness 10/10/17 [History Last Taken 10/21/23] cetirizine 10 mg tablet 10 mg PO DAILY allergies 11/03/21 [History Last Taken Unknown] gabapentin 400 mg capsule 400 mg PO BID neuropathy 11/03/21 [History Last Taken 10/21/23] omega-3 fatty acids 1,000 mg PO DAILY 12/24/21 [History Last Taken Unknown] psyllium husk 0.4 gram capsule (Daily Fiber) 0.4 g PO DAILY fiber 12/24/21 [History Last Taken Unknown] tamsulosin 0.4 mg capsule 0.4 mg PO BID prostate 12/24/21 [History Last Taken 10/21/23] tramadol 50 mg tablet 50 mg PO Q6H PRN pain 3 days #10 tabs 12/28/21 [Rx Last Taken Unknown] albuterol sulfate 90 mcg/actuation aerosol inhaler 1 inh inhalation Q4H PRN sob/wheezing 09/14/23 [History Last Taken Unknown] amlodipine 10 mg tablet 10 mg PO DAILY bloodpressure 09/14/23 [History Last Taken 10/21/23] fluticasone 100 mcg-salmeterol 50 mcg/dose blistr powdr for inhalation 1 inh inhalation Q12H copd 09/14/23 [History Last Taken 10/21/23] gabapentin 800 mg tablet 800 mg PO QHS gabapentin 09/14/23 [History Last Taken Unknown] nitroglycerin 0.4 mg sublingual tablet 0.4 mg sublingual Q5M chest pain 09/14/23 [History Last Taken Unknown] rosuvastatin 10 mg tablet 10 mg PO QHS cholesterol 09/14/23 [History Last Taken 10/21/23] apixaban 5 mg tablet (Eliquis) 5 mg PO BID 60 days #120 tabs 09/17/23 [Rx Last Taken 10/21/23] fluticasone propionate 50 mcg/actuation nasal spray,suspension 1 spray intranasal Q12H 10/21/23 [History Last Taken 10/21/23] furosemide 20 mg tablet 20 mg PO DAILY 10/21/23 [History Last Taken 10/21/23] hydrochlorothiazide 12.5 mg tablet 12.5 mg PO DAILY 10/21/23 [History Last Taken 10/21/23] levothyroxine 100 mcg tablet 100 mcg PO DAILY 10/21/23 [History Last Taken 10/21/23] lisinopril 20 mg tablet 20 mg PO BID 10/21/23 [History Last Taken 10/21/23] meloxicam 7.5 mg tablet 7.5 mg PO DAILY 10/21/23 [History Last Taken 10/21/23] Allergy/AdvReac Type Severity Reaction Status Date / Time atorvastatin [From Lipitor] AdvReac Other Verified 10/21/23 12:48 Surgical History History of cardiac catheterization History of cholecystectomy History of coronary artery bypass graft Hx of shoulder surgery Social History household members: none Smoking Status: Former smoker substance use type: does not use ROS <GENIE Villegas - Last Filed: 10/21/23 18:21> ROS ED ROS Narrative Constitutional: Negative for fever, chills, malaise. Eyes: Negative for visual change. CVS: Negative for palpitations, chest pain, syncope. Respiratory: Negative for shortness of breath, cough. GI: Negative for abdominal pain, nausea, vomiting, diarrhea, constipation, melena, hematochezia. : Negative for dysuria. Neuro: Negative for headache, motor/sensory dysfunction. EXAM <GENIE Villegas - Last Filed: 10/21/23 18:21> Physical Exam Narrative Exam Narrative: CONST: Patient sitting in no acute distress. EYES: Normal inspection. PERRL, EOMI. ENT: Dry mucous membranes. NECK: Normal inspection. RESP: No respiratory distress, CTAB. CVS: Regular rate and rhythm, no murmur, no gallop. ABD: Soft and nontender, no guarding or rebound, nondistended. SKIN: Color normal, no rash, warm, dry, intact. EXTREMITIES: Normal appearance, no pedal edema. NEURO: Alert to self, place, month, situation. Incorrectly stated the year is 2021. Moving all extremities, follows commands, no upper or lower extremity drift, 5/5 strength, normal sensation, normal [id number] and [id number]. PSYCH: Normal affect. Const Vital Signs: 10/21/23 12:44 10/21/23 14:18 10/21/23 17:14 Temperature 96 F L Temperature Source Temporal Pulse Rate 59 L 54 L 67 Respiratory Rate 14 16 16 Blood Pressure 95/44 L 103/65 158/62 H Blood Pressure Mean 61 77 94 Pulse Ox 94 95 96 Oxygen Delivery Method Room Air Room Air Room Air 10/21/23 17:15 Temperature Temperature Source Pulse Rate 67 Respiratory Rate 16 Blood Pressure 158/67 H Blood Pressure Mean 97 Pulse Ox 96 Oxygen Delivery Method <Dr. Les Broussard DO - Last Filed: 10/21/23 17:49> Physical Exam Const Vital Signs: 10/21/23 12:44 10/21/23 14:18 10/21/23 17:14 Temperature 96 F L Temperature Source Temporal Pulse Rate 59 L 54 L 67 Respiratory Rate 14 16 16 Blood Pressure 95/44 L 103/65 158/62 H Blood Pressure Mean 61 77 94 Pulse Ox 94 95 96 Oxygen Delivery Method Room Air Room Air Room Air 10/21/23 17:15 Temperature Temperature Source Pulse Rate 67 Respiratory Rate 16 Blood Pressure 158/67 H Blood Pressure Mean 97 Pulse Ox 96 Oxygen Delivery Method [facility] <GENIE Villegas - Last Filed: 10/21/23 18:21> [facility] Narrative Medical decision making narrative: Patient is felt lightheaded over the last 2 months since a head injury with subdural hematoma. Symptoms have not changed he just wanted to be evaluated today. He appears well and nontoxic. BP is 95/44 with otherwise normal vital signs. Clinically he looks dehydrated. Exam is otherwise unremarkable, NIH 0. CBC WNL. BMP shows acute kidney injury with BUN 80, creatinine 2.53. Most recent creatinine was 0.85. It has been higher in the past but this was while he had another ALEX. UA negative. EKG is nonischemic and troponin is 27. CXR and CT brain shows no acute process. Patient was treated with IV fluids and blood pressure improved. Case will be discussed with the hospitalist for admission for further hydration and acute kidney injury. Lab Data Attestation: I reviewed the patient's lab results. Labs: Laboratory Results - last 24 hr 10/21/23 10/21/23 13:17 15:45 WBC 9.0 RBC 4.56 L Hgb 13.5 Hct 42.6 MCV 93.4 MCH 29.6 MCHC 31.7 L RDW Std Deviation 51.9 H RDW Coeff of [place] 14.9 H Plt Count 190 MPV 10.9 Immature Gran % (Auto) 0.400 Neut % (Auto) 67.1 Lymph % (Auto) 20.6 Stewart % (Auto) 11.1 H Eos % (Auto) 0.7 Baso % (Auto) 0.1 Absolute Neuts (auto) 6.1 Absolute Lymphs (auto) 1.86 Nucleated RBC % 0 Sodium 139 Potassium 4.3 Chloride 103 Carbon Dioxide 27.0 Anion Gap 9 BUN 80 H Creatinine 2.53 H Est GFR (MDRD) Af Amer 32 L Est GFR (MDRD) Non-Af 26 L BUN/Creatinine Ratio 31.6 H Glucose 109 H Calcium 8.7 Troponin I High Sens 27 Urine Color Yellow Urine Clarity Clear Urine pH 5.0 Ur Specific [place] 1.015 Urine Protein Negative Urine Glucose (UA) Normal Urine Ketones Negative Urine Occult Blood Negative Urine Nitrite Negative Urine Bilirubin Negative Urine Urobilinogen Normal Ur Leukocyte Esterase Negative Urine RBC 0 SEEN Urine WBC 0 SEEN Ur Squamous Epith Cells 0 SEEN Urine Bacteria 0 SEEN Urine Mucus 0 SEEN Radiography Diagnostic Testing: Clinical Impression(s) from Imaging Studies Brain CT 10/21/23 13:00 IMPRESSION: Chronic involutional changes of the brain. Electronically Signed: Erick Hudson MD at 13:54 EST , Chest X-Ray 10/21/23 13:33 IMPRESSION: Stable blunting of the left costophrenic angle. No acute abnormality is seen. Electronically Signed: Erick Hudson MD at 13:51 EST , EKG Initial EKG: Attestation: I personally reviewed and interpreted this EKG as follows: Interpretation: Sinus Rhythm and No Acute Injury Pattern Comments: Normal sinus rhythm at 56 bpm No acute ischemic changes <Dr. Les Broussard, DO - Last Filed: 10/21/23 17:49> [facility] Lab Data Labs: Laboratory Results - last 24 hr 10/21/23 10/21/23 13:17 15:45 WBC 9.0 RBC 4.56 L Hgb 13.5 Hct 42.6 MCV 93.4 MCH 29.6 MCHC 31.7 L RDW Std Deviation 51.9 H RDW Coeff of [place] 14.9 H Plt Count 190 MPV 10.9 Immature Gran % (Auto) 0.400 Neut % (Auto) 67.1 Lymph % (Auto) 20.6 Stewart % (Auto) 11.1 H Eos % (Auto) 0.7 Baso % (Auto) 0.1 Absolute Neuts (auto) 6.1 Absolute Lymphs (auto) 1.86 Nucleated RBC % 0 Sodium 139 Potassium 4.3 Chloride 103 Carbon Dioxide 27.0 Anion Gap 9 BUN 80 H Creatinine 2.53 H Est GFR (MDRD) Af Amer 32 L Est GFR (MDRD) Non-Af 26 L BUN/Creatinine Ratio 31.6 H Glucose 109 H Calcium 8.7 Troponin I High Sens 27 Urine Color Yellow Urine Clarity Clear Urine pH 5.0 Ur Specific [place] 1.015 Urine Protein Negative Urine Glucose (UA) Normal Urine Ketones Negative Urine Occult Blood Negative Urine Nitrite Negative Urine Bilirubin Negative Urine Urobilinogen Normal Ur Leukocyte Esterase Negative Urine RBC 0 SEEN Urine WBC 0 SEEN Ur Squamous Epith Cells 0 SEEN Urine Bacteria 0 SEEN Urine Mucus 0 SEEN Radiography Diagnostic Testing: Clinical Impression(s) from Imaging Studies Brain CT 10/21/23 13:00 IMPRESSION: Chronic involutional changes of the brain. Electronically Signed: Erick Hudson MD at 13:54 EST , Chest X-Ray 10/21/23 13:33 IMPRESSION: Stable blunting of the left costophrenic angle. No acute abnormality is seen. Electronically Signed: Erick Hudson MD at 13:51 EST , Treatment and Re-Evaluation :: I have personally performed a face to face assessment of the patient and have reviewed the ALEXY Note. I performed a substantive portion of the visit including all aspects of the following. My gee findings include: History: Patient presents with dizziness that has been constant for the past several days. Patient was recently diagnosed with subdural hemorrhage and was transferred to [facility]. Patient was discharged home. Patient states he still feels lightheaded and dizzy. Patient states he has difficulty walking a straight line. Patient denies any hearing changes or tinnitus. Patient denies any spinning sensation. Patient denies any recent fevers or chills. Exam: Vital signs are stable except for mildly low blood pressure of 95/44. Patient is afebrile. Patient is in no acute distress. Pupils are equal, round, and reactive to light bilaterally. Extraocular muscles are intact. Conjunctiva is clear. Tympanic membranes are clear bilaterally. Neck is supple. Trachea is midline. There is no JVD. Oral mucosa is pink and moist. Heart was regular rate and rhythm. Lungs are clear and equal bilaterally. Abdomen is soft. Bowel sounds are normal. There is no tenderness. Cranial nerves II through XII are intact. There are no focal motor or sensory deficits noted. There are tremors to the hands bilaterally. Medical Decision Making: Differential diagnosis includes persistent subdural hematoma, closed head injury, vertigo, labyrinthitis, electrolyte abnormality, cardiac dysrhythmia, and cardiac ischemia. EKG will be obtained to assess for cardiac dysrhythmia and cardiac ischemia. Chest x-ray will be obtained to assess for pneumonia and pneumothorax. CT scan of the brain will be obtained to assess for worsening subdural hematoma. CBC will be obtained to assess for leukocytosis and anemia. Basic metabolic profile will be obtained to assess for electrolyte abnormality and renal function. Urinalysis will be obtained to assess for urinary tract infection and hematuria. High-sensitivity troponin will be obtained to assess for cardiac ischemia. EKG was obtained. On my independent interpretation, shows sinus bradycardia with a rate of 56. There are no acute ST or T wave changes noted. CBC was reviewed and was within normal limits. Basic metabolic profile was reviewed. BUN was elevated at 80 and creatinine was elevated at 2.53. High-sensitivity troponin was reviewed and was normal at 27. Urinalysis was reviewed. There is no evidence of urinary tract infection or hematuria. CT scan of the brain was obtained. There is no acute intracranial abnormality. There are some chronic involutional changes noted. This was interpreted by the radiologist and was also independently reviewed by myself. Portable 1 view chest x-ray was obtained. On my independent interpretation, lung rodríguez showed some blunting of the costophrenic angles which is unchanged. There is normal cardiac silhouette. Bony thorax is normal. There is no acute process noted. Radiologist also interpreted the x-ray and agrees. Patient was advised of his findings. Patient was advised of the need for hospitalization. Patient was agreeable with this. Case was discussed with the hospitalist. She will admit the patient to her service. Patient understood and was agreeable with the plan. All questions were answered. Discharge Plan Dx/Rx/DC Orders Clinical Impression: Acute kidney injury, Dehydration Disposition Disposition: Acute Care Hospital [facility] Discharge Date/Time: 10/21/23 18:12
[2023-10-21 13:25] LABS: Absolute Lymphocyte Count 1.86 X10^3/uL (0.83-4.51); Absolute Neutrophil Count 6.1 X10^3/uL (2.0-7.7); Basophil# 0.01 X10^3/uL; Basophil% 0.1 % (0-1); Eosinophil# 0.06 X10^3/uL; Eosinophils% 0.7 % (0-5); Hematocrit 42.6 % (40-54); Hemoglobin 13.5 g/dL (13.0-16.5); Lymphocyte # 1.86 X10^3/ul (0.83-4.51); Lymphocyte % 20.6 % (19-41); Mean Corp Hgb Conc 31.7 g/dL (32-36); Mean Corpuscular Hgb 29.6 pg (27.0-32.0); Mean Corpuscular Volume 93.4 fL (80-94); Mean Platelet Vol. 10.9 fl (6.2-12.0); Monocyte% 11.1 % (0-10); NRBC Flagged by Analyzer 0 % (0-5); Neutrophil # 6.07 X10^3/uL (2.7-7.7); Neutrophil % 67.1 % (47-70); Platelet Count 190 K/mm3 (150-450); RBC Distribution Width CV 14.9 % (11.6-14.6); RBC Distribution Width SD 51.9 fl (35.1-43.9); Red Blood Count 4.56 M/mm3 (4.6-6.2)
[2023-10-21] MEDS: 0.9% Normal Saline (1000mL) 1,000 ML 1000 ML IV (13:30)
--- NOTE | 2023-10-21 13:33 | RAD_ITS ---
STUDY: X-RAY CHEST REASON FOR EXAM: Male, 82 years old. Weakness TECHNIQUE: Single AP portable view of the chest. COMPARISON: Comparison is made with prior study dated September 13, 2023. FINDINGS: EKG electrodes are seen. Stable blunting of the left concerning angle. There is no demonstrated pleural abnormality. Sternal cerclage wires and vascular clips are present from a prior sternotomy and coronary artery bypass graft procedure (CABG). Normal mediastinum and vanesa. Normal visualized pulmonary arteries. There is atherosclerotic calcification of the aortic arch with tortuosity. Normal visualized thoracic spine. There is degenerative osteoarthritis of the bilateral shoulders. There is no demonstrated abnormality of the visualized soft tissue structures of the upper abdomen. RAD/Chest 1 View (Portable) IMPRESSION: Stable blunting of the left costophrenic angle. No acute abnormality is seen. Electronically Signed: Erick Hudson MD at 13:51 EST ,
[2023-10-21 13:43] LABS: Anion Gap 9 (5-15); BUN 80 mg/dL (7-18); BUN/Creat Ratio 31.6 RATIO (10-20); Calcium,Total 8.7 mg/dL (8.5-10.1); Chloride 103 mmol/L (98-107); Creatinine, Serum 2.53 mg/dL (0.70-1.30); EST Glomerular Filtration Rate 26 mL/min (>60); Est Glom Filt Rate - Afr Amer 32 mL/min (>60); Glucose 109 mg/dL (74-106); Potassium 4.3 mmol/L (3.5-5.1); Sodium Level 139 mmol/L (136-145); Troponin-I HS 27 pg/mL (3.0-78.0)
[2023-10-21 15:54] LABS: Bacteria 0 SEEN /hpf (None Seen); Mucous, Urine 0 SEEN /hpf (<or=2+); Red Blood Cells-Urine 0 SEEN /hpf (0-5); Squamous Epithelial Cells - UA 0 SEEN /hpf (0-5); White Blood Cells 0 SEEN /hpf (0-5)
[2023-10-21 16:19] LABS: Color, Urine Yellow (Yellow); Glucose, Dipstick Normal (Normal); Ketone-Dipstick Negative (Negative); Leukocyte Esterase-Dipstick Negative /ul (Negative); Nitrite-Dipstick Negative (Negative); Occult Blood-Urine Negative /ul (Negative); Protein-Dipstick Negative (Negative); Specific Gravity, Urine 1.015 (1.002-1.030); Urine Bilirubin Dipstick Negative (Negative); Urine Clarity Clear (Clear); Urine Urobilinogen Normal (Normal)
--- NOTE | 2023-10-21 17:36 | PCM.HP.STD ---
[facility] Date of Admission: 10/21/23 Date of Service: 10/21/23 Chief Complaint: Light headedness [facility] Narrative GEORGE KEY, is a 82-year-old male history of hypothyroidism, hypertension, BPH, DVT, CAD status post CABG, CHF, and subdural hematoma after a fall 08/26/2023 with subsequent transfer to [facility] who presented to [facility] ED 10/21/2023 with complaints of dizziness. After he was at [facility] in August with his subdural hematoma he never felt right and feels lightheaded with walking uses a cane but has not had any more falls. Primary complaints are feeling lightheadedness and feeling off balance. In the ED patient's blood pressure 95/44 and he was found to have an ALEX with creatinine 2.53 and BUN of 80 with his last creatinine 0.85 and BUN of 23 on 09/17/2023. Patient started on IV fluids and hospitalist contacted for admission. Patient gives history as above, has not felt right and feels lightheaded with walking for the past couple of months, reports he has not been eating and drinking very well, has some chronic shortness of breath that he does not think is new, denies any other acute complaints. [facility] Medical History (Updated 10/21/23 @ 17:[address] Kajal Justice MD) Arthritis Back pain BPH (benign prostatic hyperplasia) Cardiology follow-up encounter Chronic obstructive pulmonary disease (COPD) Coronary artery disease Easy bruising Former smoker History of irregular heartbeat History of stress test Leg cramps Thyroid disease Wears glasses Wears hearing aid Wears partial dentures Home Medications aspirin 81 mg tablet,delayed release 81 mg PO DAILY@0800 10/10/17 [History Last Taken 10/11/17] atenolol 25 mg tablet 25 mg PO DAILY blood pressure 10/10/17 [History Last Taken 10/21/23] meclizine 25 mg tablet 25 mg PO PRN PRN Dizziness 10/10/17 [History Last Taken 10/21/23] cetirizine 10 mg tablet 10 mg PO DAILY allergies 11/03/21 [History Last Taken Unknown] gabapentin 400 mg capsule 400 mg PO BID neuropathy 11/03/21 [History Last Taken 10/21/23] omega-3 fatty acids 1,000 mg PO DAILY 12/24/21 [History Last Taken Unknown] psyllium husk 0.4 gram capsule (Daily Fiber) 0.4 g PO DAILY fiber 12/24/21 [History Last Taken Unknown] tamsulosin 0.4 mg capsule 0.4 mg PO BID prostate 12/24/21 [History Last Taken 10/21/23] tramadol 50 mg tablet 50 mg PO Q6H PRN pain 3 days #10 tabs 12/28/21 [Rx Last Taken Unknown] albuterol sulfate 90 mcg/actuation aerosol inhaler 1 inh inhalation Q4H PRN sob/wheezing 09/14/23 [History Last Taken Unknown] amlodipine 10 mg tablet 10 mg PO DAILY bloodpressure 09/14/23 [History Last Taken 10/21/23] fluticasone 100 mcg-salmeterol 50 mcg/dose blistr powdr for inhalation 1 inh inhalation Q12H copd 09/14/23 [History Last Taken 10/21/23] gabapentin 800 mg tablet 800 mg PO QHS gabapentin 09/14/23 [History Last Taken Unknown] nitroglycerin 0.4 mg sublingual tablet 0.4 mg sublingual Q5M chest pain 09/14/23 [History Last Taken Unknown] rosuvastatin 10 mg tablet 10 mg PO QHS cholesterol 09/14/23 [History Last Taken 10/21/23] apixaban 5 mg tablet (Eliquis) 5 mg PO BID 60 days #120 tabs 09/17/23 [Rx Last Taken 10/21/23] fluticasone propionate 50 mcg/actuation nasal spray,suspension 1 spray intranasal Q12H 10/21/23 [History Last Taken 10/21/23] furosemide 20 mg tablet 20 mg PO DAILY 10/21/23 [History Last Taken 10/21/23] hydrochlorothiazide 12.5 mg tablet 12.5 mg PO DAILY 10/21/23 [History Last Taken 10/21/23] levothyroxine 100 mcg tablet 100 mcg PO DAILY 10/21/23 [History Last Taken 10/21/23] lisinopril 20 mg tablet 20 mg PO BID 10/21/23 [History Last Taken 10/21/23] meloxicam 7.5 mg tablet 7.5 mg PO DAILY 10/21/23 [History Last Taken 10/21/23] Allergy/AdvReac Type Severity Reaction Status Date / Time atorvastatin [From Lipitor] AdvReac Other Verified 10/21/23 12:48 Surgical History History of cardiac catheterization History of cholecystectomy History of coronary artery bypass graft Hx of shoulder surgery Social History household members: none Smoking Status: Former smoker substance use type: does not use ROS ROS Narrative General: Denies fever/chills HENT: Denies headache, denies stuffy nose, denies sore throat EYES: Denies changes in vision Resp: Denies cough, some chronic shortness of breath Cardiac: Denies chest pain GI: Denies abdominal pain, denies changes in bowel, denies nausea/vomiting : Denies changes in urination Extremity: Denies swelling MSK: Denies weakness Neuro: Denies any numbness/tingling, lightheadedness when up moving around Heme: Denies any bleeding or bruising Skin: Denies rashes Psychiatric: No complaints voiced Vital Signs Vital Signs Vital Signs: 10/21/23 12:44 10/21/23 14:18 10/21/23 17:14 Temperature 96 F L Temperature Source Temporal Pulse Rate 59 L 54 L 67 Respiratory Rate 14 16 16 Blood Pressure 95/44 L 103/65 158/62 H Blood Pressure Mean 61 77 94 Pulse Ox 94 95 96 Oxygen Delivery Method Room Air Room Air Room Air 10/21/23 17:15 Temperature Temperature Source Pulse Rate 67 Respiratory Rate 16 Blood Pressure 158/67 H Blood Pressure Mean 97 Pulse Ox 96 Oxygen Delivery Method Weight Weight: 105 kg Body Mass Index (BMI) 31.4 Physical Exam Narrative General: Alert, no apparent distress HEENT: Atraumatic, normocephalic Eyes: Anicteric, normal conjunctiva, extraocular movements grossly intact Neck: Supple Respiratory: Somewhat diminished at the bases, normal respiratory effort Cardiovascular: Regular rate GI: Soft, nontender, nondistended Extremities: No edema Musculoskeletal: Moving all extremities Neuro: No overt focal neurological deficits Skin: No rashes appreciated Psych: Cooperative Results Lab / Micro Data 10/21/23 13:17 10/21/23 13:17 Labs: Laboratory Results - last 24 hr 10/21/23 13:17: WBC 9.0, RBC 4.56 L, Hgb 13.5, Hct 42.6, MCV 93.4, MCH 29.6, MCHC 31.7 L, RDW Std Deviation 51.9 H, RDW Coeff of [place] 14.9 H, Plt Count 190, MPV 10.9, Immature Gran % (Auto) 0.400, Neut % (Auto) 67.1, Lymph % (Auto) 20.6, [place] % (Auto) 11.1 H, Eos % (Auto) 0.7, Baso % (Auto) 0.1, Absolute Neuts (auto) 6.1, Absolute Lymphs (auto) 1.86, Nucleated RBC % 0, Sodium 139, Potassium 4.3, Chloride 103, Carbon Dioxide 27.0, Anion Gap 9, BUN 80 H, Creatinine 2.53 H, Est GFR (MDRD) Af Amer 32 L, Est GFR (MDRD) Non-Af 26 L, BUN/Creatinine Ratio 31.6 H, Glucose 109 H, Calcium 8.7, Troponin I High Sens 27 10/21/23 15:45: Urine Color Yellow, Urine Clarity Clear, Urine pH 5.0, Ur Specific [place] 1.015, Urine Protein Negative, Urine Glucose (UA) Normal, Urine Ketones Negative, Urine Occult Blood Negative, Urine Nitrite Negative, Urine Bilirubin Negative, Urine Urobilinogen Normal, Ur Leukocyte Esterase Negative, Urine RBC 0 SEEN, Urine WBC 0 SEEN, Ur Squamous Epith Cells 0 SEEN, Urine Bacteria 0 SEEN, Urine Mucus 0 SEEN Imaging Radiology Impression Brain CT 10/21/23 13:00 IMPRESSION: Chronic involutional changes of the brain. Electronically Signed: Erick Hudson MD at 13:54 EST , Chest X-Ray 10/21/23 13:33 IMPRESSION: Stable blunting of the left costophrenic angle. No acute abnormality is seen. Electronically Signed: Erick Hudson MD at 13:51 EST , Assessment & Plan Assessment/Plan (1) ALEX (acute kidney injury): (2) Coronary artery disease: (3) Dehydration: (4) DVT of lower extremity (deep venous thrombosis): (5) BPH (benign prostatic hyperplasia): (6) Thyroid disease: (7) Chronic obstructive pulmonary disease (COPD): PLAN: Plan #Lightheadedness -Possibly secondary to dehydration and low BP given significant ALEX -Holding medications as below -IV fluids -Will obtain orthostats -CT head no acute process -PT/OT -His ALEX may also contribute to decreased clearance of gabapentin so we will decrease dose while awaiting improvement in kidney function -TSH checked last month within normal limits -UA WNL # ALEX -Will hold lisinopril, meloxicam, hydrochlorothiazide as well as Lasix -Will give IV fluids -Given history of BPH will also obtain postvoid to make sure patient not retaining -If not improving will need urine lytes and kidney bladder ultrasound -Was seen here by nephrology earlier last month due to an ALEX and he improved with IV fluids and holding nephrotoxic agents # Chronic heart failure with preserved ejection fraction -Echocardiogram 09/14/2023 with EF 55 and stage I diastolic dysfunction with RVSP of 47 and moderately severe global right ventricular systolic dysfunction with severely dilated right ventricle -Given holding most of pts home medications will monitor closely -daily weights, I's and O's #COPD -Continue home inhaler and prn albuterol -No wheezes on exam -O2 sat mid 90's in ED #Hx CAD s/p CABG -Holding BB and ori -Continue aspirin and statin #Neuropathy -Chronically on gabapentin -Could be contributing to lightheadedness given renal clearance -Will decrease dose, can increase as kidney function improves #Chronic BPH with obstruction -Continue home medications #Hx subdural hematoma -Treated at [facility] 08/26/2023 -CT head with no acute process #Hypothyroidism -Continue Synthroid #Chronic BPH with obstruction -Continue home medications # Hypertension -BP actually soft in ED, receiving IV fluids -Holding lisinopril and hydrochlorothiazide as well as Lasix especially given ALEX will also hold amlodipine and atenolol given blood pressure # History of DVT -Continue Eliquis #DVT ppx: Rommel Justice MD Time spent in the patient's overall evaluation,decision-making process, review of diagnostic data, adjustment of management, discussion with other providers, nursing nursing and ancillary staff involved in patient's care documentation, 60 Minutes Charges/Coding Visit Charges Inpatient E&M: 83079 Init Hosp L2
[2023-10-21] MEDS: 0.9% Normal Saline (1000mL) 1,000 ML 75 ML IV (18:44)
[2023-10-21] MEDS: Tamsulosin HCl 0.4 MG Capsule PO (22:31)
[2023-10-21] MEDS: Gabapentin 400 MG Capsule PO (22:31)
[2023-10-21] MEDS: APIXABAN 5 MG TABLET PO (22:31)
[2023-10-21] MEDS: Rosuvastatin 20 MG Tablet 10 MG PO (22:31)
[2023-10-22 04:20] VITALS: BP 110/56; PULSE 63; RESP 16; TEMP 36.7; O2SAT 96
[2023-10-22] MEDS: Levothyroxine 100 MCG Tablet PO (04:20)
[2023-10-22 04:43] LABS: Absolute Lymphocyte Count 1.48 X10^3/uL (0.83-4.51); Absolute Neutrophil Count 4.1 X10^3/uL (2.0-7.7); Basophil# 0.03 X10^3/uL; Basophil% 0.5 % (0-1); Eosinophil# 0.12 X10^3/uL; Eosinophils% 1.9 % (0-5); Hematocrit 41.7 % (40-54); Hemoglobin 13.2 g/dL (13.0-16.5); Lymphocyte # 1.48 X10^3/ul (0.83-4.51); Lymphocyte % 22.9 % (19-41); Mean Corp Hgb Conc 31.7 g/dL (32-36); Mean Corpuscular Hgb 29.7 pg (27.0-32.0); Mean Corpuscular Volume 93.7 fL (80-94); Mean Platelet Vol. 11.6 fl (6.2-12.0); Monocyte# 0.68 X10^3/uL; Monocyte% 10.5 % (0-10); NRBC Flagged by Analyzer 0 % (0-5); Neutrophil # 4.11 X10^3/uL (2.7-7.7); Neutrophil % 63.6 % (47-70); Platelet Count 186 K/mm3 (150-450); RBC Distribution Width CV 14.8 % (11.6-14.6); RBC Distribution Width SD 51.6 fl (35.1-43.9); Red Blood Count 4.45 M/mm3 (4.6-6.2); White Blood Count 6.5 K/mm3 (4.4-11.0)
[2023-10-22 05:02] LABS: Anion Gap 6 (5-15); BUN 72 mg/dL (7-18); BUN/Creat Ratio 48.3 RATIO (10-20); Calcium,Total 8.6 mg/dL (8.5-10.1); Chloride 109 mmol/L (98-107); Creatinine, Serum 1.49 mg/dL (0.70-1.30); EST Glomerular Filtration Rate 48 mL/min (>60); Est Glom Filt Rate - Afr Amer 58 mL/min (>60); Estimated Creatinine Clearance 49.14 ml/min; Glucose 110 mg/dL (74-106); Magnesium 2.6 mg/dL (1.6-2.6); Potassium 4.1 mmol/L (3.5-5.1); Sodium Level 141 mmol/L (136-145)
[2023-10-22 06:00] VITALS: BMI 32.3
[2023-10-22 07:03] VITALS: PULSE 89; RESP 16
[2023-10-22] MEDS: Budesonide Respules 0.5 MG/2 ML AMPUL.NEB. INHALATION (07:03)
[2023-10-22] MEDS: Albuterol 2.5 MG/3 ML VIAL.NEB. INHALATION ×2 (07:03→13:47)
--- NOTE | 2023-10-22 08:11 | PCM.PN.HOSP ---
Reason for Visit Reason for Visit: Diagnoses Disorder of thyroid, unspecified (10/21/23) Dehydration (10/21/23) Atherosclerotic heart disease of [place] coronary artery without angina pectoris (10/21/23) Acute embolism and thrombosis of unspecified deep veins of unspecified lower extremity (10/21/23) Chronic obstructive pulmonary disease, unspecified (10/21/23) Acute kidney failure, unspecified (10/21/23) Benign prostatic hyperplasia without lower urinary tract symptoms (10/21/23) Subjective Subjective Patient feels remarkably improved since his initial ED presentation and notes of lightheadedness and dizziness especially with activities has resolved. He is initially very eager for discharge to home because he has a cat at home and would like to feed this animal however following lengthy discussion about his renal function still not at baseline he was able to find someone to feed his cat and now amenable to remain. Discussed at length need for appropriate oral intake as from discussion he often times may be dehydrated. Patient denies fevers, chills, nausea, emesis, abdominal pain, chest pain or dyspnea. Objective Data Objective Data Vital Signs: Vital Signs Temp Pulse Resp BP Pulse Ox O2 Del Method 98.1 F 63 16 110/56 L 96 Room Air 10/22/23 04:20 10/22/23 04:20 10/22/23 04:20 10/22/23 04:20 10/22/23 04:20 10/22/23 04:34 Oxygen Delivery Method Room Air Weight: 238 lb 5.115 oz Body Mass Index (BMI) 32.3 Intake & Output: Intake and Output for Last 24 Hours 10/20/23 10/21/23 10/22/23 23:59 23:59 23:59 Intake Total 1240 / 1240 120 / 120 Output Total 250 / 250 Balance 990 / 990 120 / 120 Lab / Micro Data 10/22/23 03:21 10/22/23 03:21 Labs: Laboratory Results - last 24 hr 10/21/23 13:17: WBC 9.0, RBC 4.56 L, Hgb 13.5, Hct 42.6, MCV 93.4, MCH 29.6, MCHC 31.7 L, RDW Std Deviation 51.9 H, RDW Coeff of [place] 14.9 H, Plt Count 190, MPV 10.9, Immature Gran % (Auto) 0.400, Neut % (Auto) 67.1, Lymph % (Auto) 20.6, Town[place] % (Auto) 11.1 H, Eos % (Auto) 0.7, Baso % (Auto) 0.1, Absolute Neuts (auto) 6.1, Absolute Lymphs (auto) 1.86, Nucleated RBC % 0, Sodium 139, Potassium 4.3, Chloride 103, Carbon Dioxide 27.0, Anion Gap 9, BUN 80 H, Creatinine 2.53 H, Est GFR (MDRD) Af Amer 32 L, Est GFR (MDRD) Non-Af 26 L, BUN/Creatinine Ratio 31.6 H, Glucose 109 H, Calcium 8.7, Troponin I High Sens 27 10/21/23 15:45: Urine Color Yellow, Urine Clarity Clear, Urine pH 5.0, Ur Specific [place] 1.015, Urine Protein Negative, Urine Glucose (UA) Normal, Urine Ketones Negative, Urine Occult Blood Negative, Urine Nitrite Negative, Urine Bilirubin Negative, Urine Urobilinogen Normal, Ur Leukocyte Esterase Negative, Urine RBC 0 SEEN, Urine WBC 0 SEEN, Ur Squamous Epith Cells 0 SEEN, Urine Bacteria 0 SEEN, Urine Mucus 0 SEEN 10/22/23 03:21: WBC 6.5, RBC 4.45 L, Hgb 13.2, Hct 41.7, MCV 93.7, MCH 29.7, MCHC 31.7 L, RDW Std Deviation 51.6 H, RDW Coeff of [place] 14.8 H, Plt Count 186, MPV 11.6, Immature Gran % (Auto) 0.600, Neut % (Auto) 63.6, Lymph % (Auto) 22.9, Towns % (Auto) 10.5 H, Eos % (Auto) 1.9, Baso % (Auto) 0.5, Absolute Neuts (auto) 4.1, Absolute Lymphs (auto) 1.48, Nucleated RBC % 0, Sodium 141, Potassium 4.1, Chloride 109 H, Carbon Dioxide 26.0, Anion Gap 6, BUN 72 H, Creatinine 1.49 H, Estim Creat Clear Calc 49.14, Est GFR (MDRD) Af Amer 58 L, Est GFR (MDRD) Non-Af 48 L, BUN/Creatinine Ratio 48.3 H, Glucose 110 H, Calcium 8.6, Magnesium 2.6 Radiography Diagnostic Testing: Radiology Impression Brain CT 10/21/23 13:00 IMPRESSION: Chronic involutional changes of the brain. Electronically Signed: Erick Hudson MD at 13:54 EST , Chest X-Ray 10/21/23 13:33 IMPRESSION: Stable blunting of the left costophrenic angle. No acute abnormality is seen. Electronically Signed: Erick Hudson MD at 13:51 EST , Physical Exam Narrative Physical Examination: General: Awake, alert, oriented x 3 and cooperative, seated upright in PCU bedside chair, fatigued but no acute distress. Skin: Normal color, normal turgor, no icterus, no cyanosis. HEENT: AT/NC, EOMI, PERRLA, improved MMM. Lungs: Mildly diminished, greater bases, proper effort, no rales, ronchi or wheezing. Heart: Regular rate and rhythm; no gallop, rub audible. Abdomen: Soft, obese, NTTP, ND, normal BS. Extremities: No cyanosis, clubbing, or edema. Neurological: Patient awake, alert, oriented as noted, cognitive function intact; pupils equally reactive to light and accommodation, cranial nerves II-XII grossly normal, moving all 4 extremities, no focal deficits, strength improving, mildly globally decreased. Psychiatric: Affect appears normal, interactive, no acute evidence of depressive or anxiety feelings. Assessment & Plan Assessment/Plan (1) Acute kidney injury: PLAN: Plan The patient is an 82 y/o M w/ PMHx: HFpEF, BPH with lower urinary obstruction, Obesity, HTN, HLD, Hypothyroidism, Hx VTE (DVT), CAD s/p CABG, Hx fall 08/26/23 w/ [facility]H w/ transfer to [facility] with chronic LH/dizziness w/ cane usage, 09/17/23 discharge following admission for evaluation of syncope with collapse with elevated troponins identified as an acute non-STEMI with decision for medical therapy, acute kidney injury with evidence of dehydration, elevated D-dimer with VQ scan low probability PE however DVT evident in the right femoral vein, popliteal vein, tibial peroneal trunk vein, gastrocnemius vein, posterior tibial vein, soleal vein started on apixaban regimen cautiously, acute UTI at that time who now presents to the [facility] ED on 10/21/23 with history of lightheadedness, dizziness with poor oral intake prompting ED evaluation. 1. Adult failure to thrive, debility with recurrent episodes of lightheadedness, dizziness suspected secondary to significant dehydration with findings as noted below concurrently: Workup in the ED included CBC with WC 9.0, human 13.5, platelet 190 without marked shift, BMP with BUN/creatinine 80/2.53, GFR 26 upon presentation, glucose 110, urinalysis unremarkable, CT brain with chronic emotional changes, chest x-ray with stable blunting of the left costophrenic angle with otherwise no acute abnormality identified, troponin 27, magnesium 2.6. Admitted to PCU, maintained on IV fluids, nephrotoxic medications held, nephrology consulted, recent TSH normal, CT head with no acute findings, UA unremarkable, no evidence of any acute infection, maintained on fall precautions, continue evaluation and treatment as noted below, PT/OT/case management consulted for discharge planning. 2. Acute Kidney Injury, secondary to poor intake, nephrotoxic medications: Admission BUN/creatinine 80/2.53, GFR 26 with prior baseline creatinine noted 0.85 however has vacillated as was recently admitted with acute kidney injury with 09/13/2023 creatinine 5.76 with discharge creatinine 09/17/2023 with creatinine at that time 0.85, creatinine prior to admission had primarily been 0.7-1.1, 10/22/2023 BUN/creatinine to 72/1.49, GFR 48, judiciously hydrated, nephrotoxic medications including lisinopril, meloxicam, hydrochlorothiazide, Lasix held, nephrology previously recommended similar interventions and given improving will defer reconsultation. Will repeat and trend CMP. Likely given this recurrence will need medication adjustments more long-term. 3. Recent history of complex DVT: Noted during 09/2023 admission w/ DVT US right femoral vein, popliteal vein, tibial peroneal trunk vein, gastrocnemius vein, posterior tibial vein, soleal vein, will continue Eliquis therapy. 4. HFpEF: ECHO 09/14/23 with EF 55%, stage I diastolic dysfunction, RSVP 47 1 mercury, moderately severe global RV systolic dysfunction, severely dilated RV, judiciously hydrating given acute kidney injury presentation as noted, given significant acute kidney injury holding Lasix and lisinopril, unfortunately given this representation may need to consider either close continued lab follow-up coupled with close monitoring of appropriate oral hydration, continued on aspirin, Eliquis, statin therapy, atenolol, holding lisinopril and Lasix given acute kidney injury. 5. History of subdural hematoma: Status post fall with transfer to [facility] treated 08/26/2023, repeat CT head upon current presentation with no acute findings. 6. Chronic COPD: Continued on patient home inhaler, PRN albuterol, HOB, IS parameters. 7. CAD: Status post previous CABG, continue aspirin, Eliquis, statin, atenolol, holding patient home lisinopril given acute kidney injury as noted. 8. Hypertension: Continue home regimen including atenolol, amlodipine, holding lisinopril and Lasix given ALEX as noted, PRN hydralazine. 9. Chronic neuropathy: Patient on chronic gabapentin, possibly contributing to lightheadedness given renal clearance, decreased dose with alteration further pending repeat renal function trending. 10. Hypothyroidism: We will continue patient home levothyroxine regimen, recent TSH normal. 11. Hyperlipidemia: We will continue patient on statin therapy. 12. BPH with lower urinary obstruction: We will continue patient home Flomax regimen. 13. DVT prophylaxis: Continue Eliquis therapy. 14. CODE status: Full Code. Charges/Coding Visit Charges Inpatient E&M: 77035 Subs Hosp L2
[2023-10-22 09:17] VITALS: BP 109/50; PULSE 64; RESP 16; TEMP 36.7; O2SAT 94
[2023-10-22] MEDS: Fluticasone 0.05% 1 SPRAY NASAL.SRY NASAL (09:20)
[2023-10-22] MEDS: Loratadine 10 MG Tablet PO (09:21)
[2023-10-22] MEDS: Aspirin E.C. 81 MG Tablet PO (09:21)
[2023-10-22] MEDS: Tamsulosin HCl 0.4 MG Capsule PO ×2 (09:21→21:06)
[2023-10-22] MEDS: APIXABAN 5 MG TABLET PO ×2 (09:22→21:06)
[2023-10-22] MEDS: Atenolol 25 MG Tablet PO (09:23)
[2023-10-22] MEDS: Flu Vacc QS2023-24(65YR UP)/PF 240 MCG/0.7 ML Syringe IM (09:29)
[2023-10-22] MEDS: Gabapentin 100 MG Capsule 200 MG PO (09:30)
[2023-10-22] MEDS: Senna/Docusate Sodium 1 Tablet 2 TABLET PO (09:34)
--- NOTE | 2023-10-22 10:53 | CASEMGMT ---
KEYA VÁZQUEZ Assessment Face to Face with patient for initial transition planning/care coordination assessment. RN GURPREET introduced self and role at [facility], pt voices understanding. Pt is A&Ox4 and is resting comfortably in bed and is calm. Care providers, pharmacy, and demographics verified. Admitting dx: ALEX PCP: Braeden Specialists: Denies Preferred Pharmacy: [facility] Insurance: JOSH LOCKETT Prescription Benefit: Yes LNOK: DENIES Living Arrangements: Pt lives alone in a single level apartment with 4 steps to enter with handrails and denies issues entering the home. ADLs/IADLs: Ind Transportation: Pt states that he has not been driving lately and he has been using [employer]. DME: Pt states that he has O2 from [facility] and states that he wears the oxygen in the evenings and when I sleep. Pt does not know the amount of oxygen he wears. [facility] called to verify the current O2 order but they are closed d/t the weekend. Pt states that he has tanks at home. Pt states that he has a walker and cane but only uses the cane at this time. Shower has grab bars and a chair. HHC/SNF: Denies Pt?s goal: Home Plan: 6 click is 23. PT yet to eval. Pt states that he has a neighbor/ friend that will help with his cats at home and is willing to stay in the hospital today. Pt states that he would be interested in HHC but does not want this for a couple weeks after I get home to see how I do. Pt educated on how to get HHC Set up after DC. Pt denies wanting HHC set up at this time from this RN CM. Will follow for O2 needs. Velma Monroe RN, CM
[2023-10-22 13:47] VITALS: PULSE 87; RESP 20
[2023-10-22 14:49] VITALS: BP 107/68; PULSE 59; RESP 16; TEMP 36.5; O2SAT 100
[2023-10-22 21:01] VITALS: BP 125/70; PULSE 65; RESP 16; TEMP 36.6; O2SAT 96
[2023-10-22] MEDS: Gabapentin 400 MG Capsule PO (21:04)
[2023-10-22] MEDS: Rosuvastatin 20 MG Tablet 10 MG PO (21:07)
[2023-10-23 03:00] VITALS: BP 118/60; PULSE 58; RESP 16; TEMP 36.6; O2SAT 96
[2023-10-23 03:39] VITALS: BMI 32.1
[2023-10-23] MEDS: Levothyroxine 100 MCG Tablet PO (06:09)
--- NOTE | 2023-10-23 06:12 | PN.HOSP_ITS ---
Reason for Visit Reason for Visit: Diagnoses Disorder of thyroid, unspecified (10/21/23) Dehydration (10/21/23) Atherosclerotic heart disease of [place] coronary artery without angina pectoris (10/21/23) Acute embolism and thrombosis of unspecified deep veins of unspecified lower extremity (10/21/23) Chronic obstructive pulmonary disease, unspecified (10/21/23) Acute kidney failure, unspecified (10/21/23) Benign prostatic hyperplasia without lower urinary tract symptoms (10/21/23) Subjective Subjective Patient with no acute events overnight per nurse or per patient report. He notes feeling well and eager for discharge. Discussed that his renal function had continued to improve thus would plan discharge but would hold his nephrotoxic regimen for an additional period of time and would benefit from reevaluation closely as this seems to be a serial issue with poor oral intake coupled with his nephrotoxic hypertensive diuretic therapies causing him to have renal acute injury. Patient denies fevers, chills, nausea, emesis, abdominal pa in, chest pain or dyspnea. Objective Data Objective Data Vital Signs: Vital Signs Temp Pulse Resp BP Pulse Ox O2 Del Method 97.8 F 58 L 16 118/60 96 Room Air 10/23/23 03:00 10/23/23 03:00 10/23/23 03:00 10/23/23 03:00 10/23/23 03:00 10/23/23 03:00 Oxygen Delivery Method Room Air Weight: 236 lb 8.896 oz Body Mass Index (BMI) 32.1 Intake & Output: Intake and Output for Last 24 Hours 10/21/23 10/22/23 10/23/23 23:59 23:59 23:59 Intake Total 1240 / 1240 1120 / 1120 Output Total 250 / 250 Balance 990 / 990 1120 / 1120 Lab / Micro Data 10/23/23 06:43 10/23/23 06:43 Physical Exam Narrative Physical Examination: General: Awake, alert, oriented x 3 and cooperative, seated upright in PCU bedside chair, reports no events overnight, eager for discharge. Skin: Normal color, normal turgor, no icterus, no cyanosis. HEENT: AT/NC, EOMI, PERRLA, improved MMM. Lungs: Mildly diminished, greater bases, proper effort, no rales, ronchi or wheezing. Heart: Regular rate and rhythm; no gallop, rub audible. Abdomen: Soft, obese, NTTP, ND, normal BS. Extremities: No cyanosis, clubbing, or edema. Neurological: Patient awake, alert, oriented as noted, cognitive function intact; pupils equally reactive to light and accommodation, cranial nerves II- XII grossly normal, moving all 4 extremities, no focal deficits, strength improved, mildly decreased. Psychiatric: Affect appears normal, no acute evidence of depressive or anxiety feelings. Assessment & Plan Assessment/Plan (1) Acute kidney injury: PLAN: Plan The patient is an 82 y/o M w/ PMHx: HFpEF, BPH with lower urinary obstruction, Obesity, HTN, HLD, Hypothyroidism, Hx VTE (DVT), CAD s/p CABG, Hx fall 08/26/23 w/ SDH w/ transfer to [facility] with chronic LH/dizziness w/ cane usage, 09/17/23 discharge following admission for evaluation of syncope with collapse with elevated troponins identified as an acute non-STEMI with decision for medical therapy, acute kidney injury with evidence of dehydration, elevated D-dimer with VQ scan low probability PE however DVT evident in the right femoral vein, popliteal vein, tibial peroneal trunk vein, gastrocnemius vein, posterior tibial vein, soleal vein started on apixaban regimen cautiously, acute UTI at that time who now presents to the [facility] [place] ED on 10/21/23 with history of lightheadedness, dizziness with poor oral intake prompting ED evaluation. 1. Adult failure to thrive, debility with recurrent episodes of lightheadedness, dizziness suspected secondary to significant dehydration with findings as noted below concurrently: Workup in the ED included CBC with WC 9.0, human 13.5, platelet 190 without marked shift, BMP with BUN/creatinine 80/2.53, GFR 26 upon presentation, glucose 110, urinalysis unremarkable, CT brain with chronic emotional changes, chest x-ray with stable blunting of the left costophrenic angle with otherwise no acute abnormality identified, troponin 27, magnesium 2.6. Admitted to PCU, maintained on IV fluids, nephrotoxic medications held, nephrology consulted, recent TSH normal, CT head with no acute findings, UA unremarkable, no evidence of any acute infection, maintain on fall precautions. PT/OT/case management consulted but patient has noted strong preference for discharge home and improving. 2. Acute Kidney Injury, secondary to poor intake, nephrotoxic medications: Admission BUN/creatinine 80/2.53, GFR 26 with prior baseline creatinine noted 0.85 however has vacillated as was recently admitted with acute kidney injury with 09/13/2023 creatinine 5.76 with discharge creatinine 09/17/2023 with creatinine at that time 0.85, creatinine prior to admission had primarily been 0.7-1.1, 10/22/2023 BUN/creatinine to 72/1.49, GFR 48, judiciously hydrated, nephrotoxic medications including lisinopril, meloxicam, hydrochlorothiazide, Lasix held, nephrology previously recommended similar interventions and given improving will defer reconsultation. 10/23/2023 BUN/creatinine 44/0.91, resolved, will di scharge to home with hold on these nephrotoxic medications, follow-up with nephrology and PCP as this seems to be a recurrent issue and at this time blood pressure is primarily been normal range. When decision for medication resumption would need early follow-up basic metabolic panel. 3. Recent history of complex DVT: Noted during 09/2023 admission w/ DVT US right femoral vein, popliteal vein, tibial peroneal trunk vein, gastrocnemius vein, posterior tibial vein, soleal vein, will continue Eliquis therapy. 4. HFpEF: ECHO 09/14/23 with EF 55%, stage I diastolic dysfunction, RSVP 47 1 mercury, moderately severe global RV systolic dysfunction, severely dilated RV, judiciously hydrating given acute kidney injury presentation as noted, given significant acute kidney injury holding Lasix and lisinopril, unfortunately given this representation may need to consider either close continued lab fo llow-up coupled with close monitoring of appropriate oral hydration, continued on aspirin, Eliquis, statin therapy, atenolol. As noted above we will continue to hold lisinopril and Lasix given this is a recurrent issue with recurrent acute kidney injury likely poor intake coupled with nephrotoxic medication with close early follow-up and with resumption would need early follow-up basic metabolic panel. 5. History of subdural hematoma: Status post fall with transfer to [facility] treated 08/26/2023, repeat CT head upon current presentation with no acute findings. 6. Chronic COPD: Continued on patient home inhaler, PRN albuterol, HOB, IS parameters. 7. CAD: Status post previous CABG, continue aspirin, Eliquis, statin, atenolol, holding patient home lisinopril given acute kidney injury as noted and will temporally continue at discharge, once patient's medications are fully resumed would need early close basic metabolic panel to make sure not recurrent issues. 8. Hypertension: Continue home regimen including atenolol, amlodipine, holding lisinopril and Lasix given ALEX as noted and will hold upon discharge temporarily and once patient's medications are fully resumed would need early close basic metabolic panel to make sure not recurrent issues., PRN hydralazine. 9. Chronic neuropathy: Patient on chronic gabapentin, possibly contributing to lightheadedness given renal clearance, decreased dose which will be continued at discharge. 10. Hypothyroidism: We will continue patient home levothyroxine regimen, recent TSH normal. 11. Hyperlipidemia: We will continue patient on statin therapy. 12. BPH with lower urinary obstruction: We will continue patient home Flomax regimen. 13. DVT prophylaxis: Continue Eliquis therapy. 14. CODE status: Full Code. Charges/Coding Visit Charges Inpatient E&M: 84409 Subs Hosp L2
[2023-10-23 07:03] VITALS: PULSE 88; RESP 20
[2023-10-23] MEDS: Budesonide Respules 0.5 MG/2 ML AMPUL.NEB. INHALATION (07:03)
[2023-10-23] MEDS: Albuterol 2.5 MG/3 ML VIAL.NEB. INHALATION (07:03)
[2023-10-23 07:17] LABS: Absolute Lymphocyte Count 1.14 X10^3/uL (0.83-4.51); Absolute Neutrophil Count 4.2 X10^3/uL (2.0-7.7); Basophil# 0.03 X10^3/uL; Basophil% 0.5 % (0-1); Eosinophil# 0.16 X10^3/uL; Eosinophils% 2.6 % (0-5); Hematocrit 42.6 % (40-54); Hemoglobin 13.8 g/dL (13.0-16.5); Lymphocyte # 1.14 X10^3/ul (0.83-4.51); Lymphocyte % 18.8 % (19-41); Mean Corp Hgb Conc 32.4 g/dL (32-36); Mean Corpuscular Hgb 30.7 pg (27.0-32.0); Mean Corpuscular Volume 94.7 fL (80-94); Mean Platelet Vol. 11.1 fl (6.2-12.0); Monocyte# 0.53 X10^3/uL; Monocyte% 8.7 % (0-10); NRBC Flagged by Analyzer 0 % (0-5); Neutrophil # 4.19 X10^3/uL (2.7-7.7); Neutrophil % 69.2 % (47-70); Platelet Count 189 K/mm3 (150-450); RBC Distribution Width CV 14.8 % (11.6-14.6); RBC Distribution Width SD 51.8 fl (35.1-43.9); White Blood Count 6.1 K/mm3 (4.4-11.0)
[2023-10-23 07:59] LABS: ALB/GLOB Ratio 0.9 RATIO (0.9-2.4); AST(SGOT) 16 U/L (15-37); Alanine Aminotransfer ALT/SGPT 29 U/L (16-61); Albumin, Serum 3.4 g/dL (3.2-5.0); Alkaline Phosphatase 42 U/L (45-117); Anion Gap 3 (5-15); BUN 44 mg/dL (7-18); BUN/Creat Ratio 48.4 RATIO (10-20); Chloride 112 mmol/L (98-107); Creatinine, Serum 0.91 mg/dL (0.70-1.30); EST Glomerular Filtration Rate 85 mL/min (>60); Est Glom Filt Rate - Afr Amer 103 mL/min (>60); Estimated Creatinine Clearance 80.58 ml/min; Globulin 3.6 g/dL (2.2-4.2); Glucose 107 mg/dL (74-106); Potassium 4.7 mmol/L (3.5-5.1); Sodium Level 142 mmol/L (136-145)
[2023-10-23 08:52] VITALS: BP 146/102; PULSE 72; RESP 17; TEMP 36.6; O2SAT 96
[2023-10-23] MEDS: Aspirin E.C. 81 MG Tablet PO (09:00)
[2023-10-23] MEDS: amLODIPine 10 MG Tablet PO (09:00)
[2023-10-23] MEDS: Psyllium 1 PACKET PO (09:00)
[2023-10-23] MEDS: Atenolol 25 MG Tablet PO (09:01)
[2023-10-23] MEDS: Loratadine 10 MG Tablet PO (09:01)
[2023-10-23] MEDS: Tamsulosin HCl 0.4 MG Capsule PO (09:02)
[2023-10-23] MEDS: Fluticasone 0.05% 1 SPRAY NASAL.SRY NASAL (09:02)
[2023-10-23] MEDS: APIXABAN 5 MG TABLET PO (09:02)
--- NOTE | 2023-10-23 10:37 | DS.PCM_ITS ---
Providers Date of Admission: 10/21/23 Date of Discharge: 10/23/23 Primary Care Physician: Dr. Husam Deras DO Reason For Visit: ALEX Diagnosis Discharge Diagnosis (1) Acute kidney injury: Status: Acute Code(s): N17.9 - Acute kidney failure, unspecified Plan: DISCHARGE DIAGNOSES: 1. Adult failure to thrive, debility with recurrent episodes of lightheadedness, dizziness suspected secondary to significant dehydration with findings as noted below concurrently 2. Acute Kidney Injury, secondary to poor intake, nephrotoxic medications 3. Recent history of complex DVT 4. HFpEF 5. History of subdural hematoma 6. Chronic COPD 7. CAD Status post previous CABG 8. Hypertension 9. Chronic neuropathy 10. Hypothyroidism 11. Hyperlipidemia 12. BPH with lower urinary obstruction 13. CODE status: Full Code. Medications at Discharge Home Medications aspirin 81 mg tablet,delayed release 81 mg PO DAILY@0800 10/10/17 atenolol 25 mg tablet 25 mg PO DAILY blood pressure 10/10/17 meclizine 25 mg tablet 25 mg PO PRN PRN Dizziness 10/10/17 cetirizine 10 mg tablet 10 mg PO DAILY allergies 11/03/21 omega-3 fatty acids 1,000 mg PO DAILY 12/24/21 psyllium husk 0.4 gram capsule (Daily Fiber) 0.4 g PO DAILY fiber 12/24/21 tamsulosin 0.4 mg capsule 0.4 mg PO BID prostate 12/24/21 tramadol 50 mg tablet 50 mg PO Q6H PRN pain 3 days #10 tabs 12/28/21 albuterol sulfate 90 mcg/actuation aerosol inhaler 1 inh inhalation Q4H PRN sob/wheezing 09/14/23 amlodipine 10 mg tablet 10 mg PO DAILY bloodpressure 09/14/23 fluticasone 100 mcg-salmeterol 50 mcg/dose blistr powdr for inhalation 1 inh inhalation Q12H copd 09/14/23 nitroglycerin 0.4 mg sublingual tablet 0.4 mg sublingual Q5M chest pain 09/14/23 rosuvastatin 10 mg tablet 10 mg PO QHS cholesterol 09/14/23 apixaban 5 mg tablet (Eliquis) 5 mg PO BID 60 days #120 tabs 09/17/23 fluticasone propionate 50 mcg/actuation nasal spray,suspension 1 spray intrana miky Q12H 10/21/23 furosemide 20 mg tablet 20 mg PO DAILY 10/21/23 levothyroxine 100 mcg tablet 100 mcg PO DAILY 10/21/23 lisinopril 20 mg tablet 20 mg PO BID 10/21/23 meloxicam 7.5 mg tablet 7.5 mg PO DAILY 10/21/23 gabapentin 100 mg capsule 200 mg (2 x 100 mg) PO BID 30 days #120 caps 10/23/23 gabapentin 400 mg capsule 400 mg PO QHS 30 days #30 caps 10/23/23 Hospital Course Operations None Procedures EKG Summary of Care Provided Minutes Spent on Discharge: 35 Hospital Course: The patient is an 82 y/o M w/ PMHx: HFpEF, BPH with lower urinary obstruction, Obesity, HTN, HLD, Hypothyroidism, Hx VTE (DVT), CAD s/p CABG, Hx fall 08/26/23 w/ SDH w/ transfer to [facility] with chronic LH/dizziness w/ cane usage, 09/17/23 discharge following admission for evaluation of syncope with collapse with elevated troponins identified as an acute non-STEMI with decision for medical therapy, acute kidney injury with evidence of dehydration, elevated D-dimer with VQ scan low probability PE however DVT evident in the right femoral vein, popli teal vein, tibial peroneal trunk vein, gastrocnemius vein, posterior tibial vein, soleal vein started on apixaban regimen cautiously, acute UTI at that time who now presented to the [facility] ED on 10/21/23 with history of lightheadedness, dizziness with poor oral intake prompting ED evaluation. Workup in the ED included CBC with WC 9.0, human 13.5, platelet 190 without marked shift, BMP with BUN/creatinine 80/2.53, GFR 26 upon presentation, glucose 110, urinalysis unremarkable, CT brain with chronic emotional changes, chest x-ray with stable blunting of the left costophrenic angle with otherwise no acute abnormality identified, troponin 27, magnesium 2.6. Admitted to PCU, maintained on IV fluids, nephrotoxic medications held, recent TSH normal, CT head with no acute findings, UA unremarkable, no evidence of any acute infection, renal function improved following interventions. Admission BUN/creatinine 80/2.53, GFR 26 with prior baseline creatinine noted 0.85 however has vacillated as was recently admitted with acute kidney injury with 09/13/2023 creatinine 5.76 with discharge creatinine 09/17/2023 with creatinine at that time 0.85, creatinine prior to admission had primarily been 0.7-1.1, 10/22/2023 BUN/creatinine to 72/1.49, GFR 48, judiciously hydrated, nephrotoxic medications including lisinopril, meloxicam, hydrochlorothiazide, Lasix held, nephrology previously recommended similar interventions. 10/23/2023 BUN/creatinine 44/0.91, resolved, discharged to home with hold timeline on these nephrotoxic medications with follow-up with nephrology and PCP as this seems to be a recurrent issue and at this time blood pressure is primarily been normal range. Discontinued his HCTZ. Also requested follow-up with Cardiology given needed continued medication monitoring and several for his underlying cardiac disease. requested repeat BMP with PCP at follow-up. Upon discharge also altered his gabapentin given issues with falls. Patient was evaluation with PT/OT/CM, declined any home interventions at discharge as he notes feeling better but discussed again seems to be recurrent issue thus recommended if issues arise to contact CM/SW or his PCP. Weight / BMI Weight Weight: 236 lb 8.896 oz Body Mass Index (BMI) 32.1 ABG / Lab / Microbiology Data 10/23/23 06:43 10/23/23 06:43 Laboratory: Laboratory Results - last 24 hr 10/23/23 06:43: WBC 6.1, RBC 4.50 L, Hgb 13.8, Hct 42.6, MCV 94.7 H, MCH 30.7, MCHC 32.4, RDW Std Deviation 51.8 H, RDW Coeff of [place] 14.8 H, Plt Count 189, MPV 11.1, Immature Gran % (Auto) 0.200, Neut % (Auto) 69.2, Lymph % (Auto) 18.8 L, Bath % (Auto) 8.7, Eos % (Auto) 2.6, Baso % (Auto) 0.5, Absolute Neuts (auto) 4.2, Absolute Lymphs (auto) 1.14, Nucleated RBC % 0, Sodium 142, Potassium 4.7, Chloride 112 H, Carbon Dioxide 27.0, Anion Gap 3 L, BUN 44 H, Creatinine 0.91, Estim Creat Clear Calc 80.58, Est GFR (MDRD) Af Amer 103, Est GFR (MDRD) Non-Af 85, BUN/Creatinine Ratio 48.4 H, Glucose 107 H, Calcium 9.0, Total Bilirubin 0.60, AST 16, ALT 29, Alkaline Phosphatase 42 L, Total Protein 7.0, Albumin 3.4, Globulin 3.6, Albumin/Globulin Ratio 0.9 D/C Instructions Discharge Diet: Low fat / Low cholesterol and - (Given heart failure history please continue to openly discuss appropriate hydration with your primary care and Cardiology.) Weight Bearing Status: Weight bearing as tolerated Call your doctor if you observe: Fever of 101 or Higher, Numbness or Tingling, Shortness of breath, Dizziness, Swelling in the ankles, Chest pain, Increased palpitations (irregular heartbeat), Calf discomfort, Uncontrolled pain and - (Weight gain > 5 lbs contact your Cardiology team.) Meaningful Use Info Meaningful Use Diagnoses (Choose all that apply): None applicable Discharge Plan Admission Admit Date/Time: 10/21/23 17:36 Primary Reason for Your Visit: ALEX, Adult FTT, Dehydration Attending Provider: Paulette Wadsworth Primary Care Provider: Husam Deras Consulting Providers: Kajal Justice Instructions Patient Instructions: Acute Kidney Failure Dc, ED Dehydration (Adult) Additional Instructions / Restrictions: ADDITIONAL DISCHARGE INSTRUCTIONS/PLAN OF CARE: 1. Acute Kidney Injury, secondary to poor intake, nephrotoxic medications: --Admission BUN/creatinine 80/2.53, GFR 26 with prior baseline creatinine noted 0.85 however has vacillated with 10/23/2023 BUN/creatinine 44/0.91. --We have requested you discontinue your HCTZ. --Please temporarily hold your mobic with repeat basic metabolic with your primary at follow-up. This may need held further depending on your repeat renal functions. --Please temporarily hold your lisinopril and lasix. We will attempt resumption as noted ONLY if your blood pressure is appropriate with hold parameters (top number systolic >110) otherwise if your blood pressure is low then DO NOT take the lisinopril or lasix regimen. Also, as noted above please also have repeat basic metabolic with your primary at follow-up and the lisinopril and lasix may need to be held further or discontinued depending on your repeat renal functions. 2. Adult failure to thrive, debility with recurrent episodes of lightheadedness, dizziness suspected secondary to significant dehydration with findings as noted below concurrently: --Treated as noted above for acute kidney injury. --CT brain with chronic emotional changes. --Chest x-ray with stable blunting of the left costophrenic angle with otherwise no acute abnormality identified. --Cardiac enzymes normal. --Urine analysis normal. --At discharge we have altered your home gabapentin as this could be contribut ing. Discharge Orders/Prescriptions Prescriptions: New gabapentin 400 mg Capsule 400 mg PO QHS 30 Days Qty: 30 0RF gabapentin 100 mg Capsule 200 mg PO BID 30 Days Qty: 120 0RF Continued atenolol 25 MG tablet 25 mg PO DAILY aspirin 81 MG tablet 81 mg PO DAILY@0800 Hold Instructions: Resume on 12/30/21. meclizine 25 MG tablet 25 mg PO PRN PRN (Reason: Dizziness) cetirizine 10 mg tablet 10 mg PO DAILY Patient Comments: TAKE 1 TABLET BY MOUTH ONCE DAILY omega-3 fatty acids Capsule 1,000 mg PO DAILY psyllium husk [Daily Fiber] 0.4 gram Capsule 0.4 g PO DAILY tamsulosin 0.4 mg Capsule 0.4 mg PO BID tramadol 50 mg tablet 50 mg PO Q6H PRN (Reason: pain) 3 Days Qty: 10 0RF amlodipine 10 mg tablet 10 mg PO DAILY fluticasone propion-salmeterol 100-50 mcg/dose blister with device 1 inh INHALATION Q12H rosuvastatin 10 mg tablet 10 mg PO QHS nitroglycerin 0.4 mg tablet, sublingual 0.4 mg sublingual Q5M Patient Comments: DISSOLVE ONE TABLET UNDER THE TONGUE EVERY 5 MINUTES FOR 3 TIMES NEEDED FOR CHEST PAIN. albuterol sulfate 90 mcg/actuation HFA aerosol inhaler 1 inh INHALATION Q4H PRN (Reason: sob/wheezing) Eliquis 5 mg Tablet 5 mg PO BID 60 Days Qty: 120 0RF fluticasone propionate 50 mcg/actuation spray,suspension 1 spray INTRANASAL Q12H levothyroxine 100 mcg tablet 100 mcg PO DAILY Held furosemide 20 mg tablet 20 mg PO DAILY Hold Instructions: Resume on 10/26/23. Will need repeat basic metabolic panel at follow-up to assure renal function remains appropriate with resumption. DO NOT TAKE the medication if your repeat blood pressures are systolic (top number) less than 110. This may need to be stopped completely if ongoing lower blood pressure or renal function again worsens after restart. lisinopril 20 mg tablet 20 mg PO BID Hold Instructions: Resume on 10/26/23. Will need repeat basic metabolic panel at follow-up to assure renal function remains appropriate with resumption. DO NOT TAKE the medication if your repeat blood pressures are systolic (top number) less than 110. This may need to be stopped completely if ongoing lower blood pressure or renal function again worsens after restart. meloxicam 7.5 mg tablet 7.5 mg PO DAILY Hold Instructions: Resume on 10/26/23. Will need repeat basic metabolic panel at follow-up to assure renal function remains appropriate with resumption. Discontinued gabapentin 400 mg capsule 400 mg PO BID Rx Instructions: pt takes 400mg am and afternoon then 800mg at hs gabapentin 800 mg tablet 800 mg PO QHS hydrochlorothiazide 12.5 mg tablet 12.5 mg PO DAILY Referrals / Follow Up: Kt Montesinos MD [Med Staff - Consulting] - (Follow-up with Nephrology to review admission and have reassessment in 2-3 weeks.) Husam Dears DO [Primary Care Provider] - (Follow-up within 3-5 days to review admission. Repeat metabolic panel with primary care at follow-up.) Renay Haddad PA [Med Staff - Adv Practice Prof] - (Please follow-up with Cardiology to review recent admission and medication changes. Follow-up in 2 weeks.) Disposition Disposition (needs filled in before D/C Order can be placed): Home, Self Care Charges/Coding Visit Charges Inpatient E&M: 03593 Disch Hosp >30min
[2023-10-23] MEDS: Gabapentin 100 MG Capsule 200 MG PO (10:39)
== END 2023-10-23 11:06 | disposition home or self-care (01) | DRG 683 ==
LOC: ED 14:08 → PCU 17:57
PROVIDERS: Physician Assistant; Admitting Provider Internal Medicine; Emergency Provider Emergency Medicine; PCP Student in an Organized Health Care Education/Training Program; Visit Provider Family Medicine
DX: N17.9 Acute kidney failure, unspecified (principal); N13.8 Other obstructive and reflux uropathy; I50.32 Chronic diastolic (congestive) heart failure; I11.0 Hypertensive heart disease with heart failure; I95.9 Hypotension, unspecified; E86.0 Dehydration; J44.9 Chronic obstructive pulmonary disease, unspecified; E03.9 Hypothyroidism, unspecified; E78.5 Hyperlipidemia, unspecified; I25.10 Atherosclerotic heart disease of native coronary artery without angina pectoris; G62.9 Polyneuropathy, unspecified; Z68.32 Body mass index [BMI] 32.0-32.9, adult; R62.7 Adult failure to thrive; R53.81 Other malaise; N40.1 Benign prostatic hyperplasia with lower urinary tract symptoms; Z23 Encounter for immunization; Z79.01 Long term (current) use of anticoagulants; Z79.82 Long term (current) use of aspirin; Z79.890 Hormone replacement therapy; Z79.899 Other long term (current) drug therapy; Z87.891 Personal history of nicotine dependence; Z95.1 Presence of aortocoronary bypass graft; Z86.718 Personal history of other venous thrombosis and embolism
CPT/HCPCS: 36415; 70450; 71045; 80048; 80053; 81001; 83735; 84484; 85025; 93005; 94640; 97162; 97165; 99285; G0008; J7030; 90662

== ENCOUNTER 2023-12-30 10:39 | Emergency (ER) | payer MEDICARE, MEDICAID, SELFPAY ==
[2023-12-30 10:41] VITALS: BP 141/53; PULSE 65; RESP 18; TEMP 37; O2SAT 98; BMI 34.5
--- NOTE | 2023-12-30 11:45 | EKG12_ITS ---
Test Reason : Blood Pressure : / mmHG Vent. Rate : 060 BPM Atrial Rate : 060 BPM P-R Int : 206 ms QRS Dur : 092 ms QT Int : 430 ms P-R-T Axes : 000 034 049 degrees QTc Int : 430 ms Sinus rhythm Normal ECG Confirmed by Clarke Sales ([id number]), publications editor CHANTELLE HOBSON ([id number]) on 01/02/2024 2:18:09 PM Referred By: Confirmed By:Clarke Sales
--- NOTE | 2023-12-30 11:47 | EX.ED.DYSGE1 ---
HPI <GENIE Villegas - Last Filed: 12/30/23 14:19> History of Present Illness Chief Complaint: Weakness Narrative Narrative: 82-year-old male with past medical history of HTN, HLD, CABG, hypothyroidism states since he was admitted to the hospital in August 2023 after head injury he has noticed both ankles and feet are swollen. He states the degree of swelling does not change. He is prescribed furosemide 20 mg every other day but started taking it daily and has not noticed an improvement. He states with walking his feet will be uncomfortable and sometimes feel numb and tingly. Today after walking to the mailbox they hurt more than usual and he called his primary care doctor who told him to take an extra furosemide pill and be evaluated in the ED. He denies chest pain or exertional dyspnea. [facility] <GENIE Villegas - Last Filed: 12/30/23 14:19> [facility] Medical History (Updated 12/30/23 @ 13:21 by GENIE Villegas) Arthritis Back pain BPH (benign prostatic hyperplasia) Cardiology follow-up encounter Chronic obstructive pulmonary disease (COPD) Coronary artery disease DVT of lower extremity (deep venous thrombosis) Easy bruising Former smoker History of irregular heartbeat History of stress test Leg cramps Thyroid disease Wears glasses Wears hearing aid Wears partial dentures Home Medications aspirin 81 mg tablet,delayed release 81 mg PO DAILY@0800 10/10/17 [History Last Taken 10/11/17] atenolol 25 mg tablet 25 mg PO DAILY blood pressure 10/10/17 [History Last Taken 10/21/23] meclizine 25 mg tablet 25 mg PO PRN PRN Dizziness 10/10/17 [History Last Taken 10/21/23] cetirizine 10 mg tablet 10 mg PO DAILY allergies 11/03/21 [History Last Taken Unknown] omega-3 fatty acids 1,000 mg PO DAILY 12/24/21 [History Last Taken Unknown] psyllium husk 0.4 gram capsule (Daily Fiber) 0.4 g PO DAILY fiber 12/24/21 [History Last Taken Unknown] tamsulosin 0.4 mg capsule 0.4 mg PO BID prostate 12/24/21 [History Last Taken 10/21/23] tramadol 50 mg tablet 50 mg PO Q6H PRN pain 3 days #10 tabs 12/28/21 [Rx Last Taken Unknown] albuterol sulfate 90 mcg/actuation aerosol inhaler 1 inh inhalation Q4H PRN sob/wheezing 09/14/23 [History Last Taken Unknown] amlodipine 10 mg tablet 10 mg PO DAILY bloodpressure 09/14/23 [History Last Taken 10/21/23] fluticasone 100 mcg-salmeterol 50 mcg/dose blistr powdr for inhalation 1 inh inhalation Q12H copd 09/14/23 [History Last Taken 10/21/23] nitroglycerin 0.4 mg sublingual tablet 0.4 mg sublingual Q5M chest pain 09/14/23 [History Last Taken Unknown] rosuvastatin 10 mg tablet 10 mg PO QHS cholesterol 09/14/23 [History Last Taken 10/21/23] apixaban 5 mg tablet (Eliquis) 5 mg PO BID 60 days #120 tabs 09/17/23 [Rx Last Taken 10/21/23] fluticasone propionate 50 mcg/actuation nasal spray,suspension 1 spray intranasal Q12H 10/21/23 [History Last Taken 10/21/23] furosemide 20 mg tablet 20 mg PO DAILY 10/21/23 [History Last Taken 10/21/23] levothyroxine 100 mcg tablet 100 mcg PO DAILY 10/21/23 [History Last Taken 10/21/23] lisinopril 20 mg tablet 20 mg PO BID 10/21/23 [History Last Taken 10/21/23] meloxicam 7.5 mg tablet 7.5 mg PO DAILY 10/21/23 [History Last Taken 10/21/23] gabapentin 100 mg capsule 200 mg (2 x 100 mg) PO BID 30 days #120 caps 10/23/23 [Rx Last Taken Unknown] gabapentin 400 mg capsule 400 mg PO QHS 30 days #30 caps 10/23/23 [Rx Last Taken Unknown] Allergy/AdvReac Type Severity Reaction Status Date / Time atorvastatin [From Lipitor] AdvReac Other Verified 12/30/23 10:40 Surgical History History of cardiac catheterization History of cholecystectomy History of coronary artery bypass graft Hx of shoulder surgery Social History (Updated 10/21/23 @ 18:50 by Erin Zhou) household members: none housing: apartment pets and animals: Yes Smoking Status: Former smoker substance use type: does not use ROS <GENIE Villegas - Last Filed: 12/30/23 14:19> ROS ED ROS Narrative Constitutional: Negative for fever, chills, malaise. CVS: Negative for chest pain, syncope. Respiratory: Negative for shortness of breath, orthopnea. Neuro: Negative for motor/sensory dysfunction. Musc: Negative for joint pain. EXAM <GENIE Villegas - Last Filed: 12/30/23 14:19> Physical Exam Narrative Exam Narrative: CONST: Patient sitting in no acute distress. EYES: Normal inspection. NECK: Normal inspection. RESP: No respiratory distress, CTAB. CVS: Regular rate and rhythm, no murmur, no gallop. SKIN: Color normal, no rash, warm, dry, intact. EXTREMITIES: 1+ pitting edema both feet and ankles,. No warmth or skin changes, full range of motion all joints, normal sensation, 2+ DP pulses. NEURO: Alert and answering questions appropriately. PSYCH: Normal affect. Const Vital Signs: 12/30/23 10:41 12/30/23 12:40 12/30/23 13:36 Temperature 98.6 F 96 F L Temperature Source Temporal Pulse Rate 65 82 56 L Respiratory Rate 18 16 14 Blood Pressure 141/53 H 141/63 H 147/63 H Blood Pressure Mean 82 89 91 Pulse Ox 98 97 97 Oxygen Delivery Method Room Air Room Air <Dr. Phoenix Burgos MD - Last Filed: 12/30/23 13:11> Physical Exam Const Vital Signs: 12/30/23 10:41 12/30/23 12:40 12/30/23 13:36 Temperature 98.6 F 96 F L Temperature Source Temporal Pulse Rate 65 82 56 L Respiratory Rate 18 16 14 Blood Pressure 141/53 H 141/63 H 147/63 H Blood Pressure Mean 82 89 91 Pulse Ox 98 97 97 Oxygen Delivery Method Room Air Room Air MDM <GENIE Villegas - Last Filed: 12/30/23 14:19> MDM MDM Narrative Medical decision making narrative: 83-year-old male presents for evaluation of 4+ months of bilateral lower extremity edema. He appears well and nontoxic. Afebrile with normal vital signs. On exam he has trace edema of both ankles and feet. Extremities are neurovascularly intact. Workup overall is unremarkable. Creatinine very minimally elevated at 1.37. BMP negative. Normal liver enzymes. CXR shows no acute process. Resolved. I recommended he elevate his legs and wear compression stockings but he states these are uncomfortable. I recommended increased walking. He should follow-up with his primary care doctor. I discussed amlodipine is on his medication list and sometimes this is a source of edema he should discuss with his prescriber. He was comfortable with this plan and discharged in stable condition. I have personally performed a face to face assessment of the patient and have reviewed the ALEXY Note. I performed a substantive portion of the visit including all aspects of the following. My gee findings include: History is [83-year-old male complaining of leg swelling. Generalized weakness. Denies any vomiting or diarrhea. No fever. No melena.] Exam is [well-appearing 19-year-old male. Vital signs stable afebrile. H EENT exam unremarkable. Neck nontender. Lungs clear to auscultation bilaterally. Heart regular rate rhythm no murmur. Abdomen soft nontender. Moving all 4 extremities. Calves are nontender. He has very minimal trace edema in his feet and ankles. Calves are nontender without cords or edema. Neurologically is awake and alert with no focal motor deficits. Very benign exam.] Medical Decision Making [old male complaining of weakness and leg swelling which is very minor. He is on a diuretic at home as he took 2 of those meds already today.] Other additions or changes: [None] Lab Data Labs: Laboratory Results - last 24 hr 12/30/23 11:57 WBC 7.3 RBC 4.71 Hgb 14.3 Hct 44.6 MCV 94.7 H MCH 30.4 MCHC 32.1 RDW Std Deviation 50.3 H RDW Coeff of [place] 14.4 Plt Count 166 MPV 10.8 Immature Gran % (Auto) 0.400 Neut % (Auto) 70.0 Lymph % (Auto) 19.7 [place] % (Auto) 8.1 Eos % (Auto) 1.4 Baso % (Auto) 0.4 Absolute Neuts (auto) 5.1 Absolute Lymphs (auto) 1.43 Nucleated RBC % 0 Sodium 139 Potassium 4.9 Chloride 108 H Carbon Dioxide 27.0 Anion Gap 4 L BUN 63 H Creatinine 1.37 H Estim Creat Clear Calc 53.01 Est GFR (MDRD) Af Amer 64 Est GFR (MDRD) Non-Af 53 L BUN/Creatinine Ratio 46.0 H Glucose 105 Calcium 9.0 Total Bilirubin 0.50 AST 16 ALT 34 Alkaline Phosphatase 42 L B-Natriuretic Peptide 55.2 Total Protein 7.8 Albumin 3.8 Globulin 4.0 Albumin/Globulin Ratio 1.0 Radiography Diagnostic Testing: Clinical Impression(s) from Imaging Studies Chest X-Ray 12/30/23 12:10 IMPRESSION: No acute abnormality is seen. Stable examination. Electronically Signed: Erick Hudson MD at 12:39 EDT , EKG Initial EKG: Attestation: I personally reviewed and interpreted this EKG as follows: Comments: Sinus rhythm at 60 bpm with occasional PVCs Normal intervals, no acute ischemic changes <Dr. Phoenix Burgos MD - Last Filed: 12/30/23 13:11> [facility] MDM Narrative Medical decision making narrative: 83-year-old male presents for evaluation of 4+ months of bilateral lower extremity edema. He appears well and nontoxic. Afebrile with normal vital signs. On exam he has 1+ edema of both ankles and feet. Extremities are neurovascularly intact. I have personally performed a face to face assessment of the patient and have reviewed the ALEXY Note. I performed a substantive portion of the visit including all aspects of the following. My gee findings include: History is [83-year-old male complaining of leg swelling. Generalized weakness. Denies any vomiting or diarrhea. No fever. No melena.] Exam is [well-appearing 19-year-old male. Vital signs stable afebrile. H EENT exam unremarkable. Neck nontender. Lungs clear to auscultation bilaterally. Heart regular rate rhythm no murmur. Abdomen soft nontender. Moving all 4 extremities. Calves are nontender. He has very minimal trace edema in his feet and ankles. Calves are nontender without cords or edema. Neurologically is awake and alert with no focal motor deficits. Very benign exam.] Medical Decision Making [old male complaining of weakness and leg swelling which is very minor. He is on a diuretic at home as he took 2 of those meds already today.] Other additions or changes: [None] History & Record Review Discussion w/independent historian: Patient Additional record(s) reviewed:: Prior inpatient record, Prior outpatient record, Prior ED visit and Prior labs Lab Data Attestation: I reviewed the patient's lab results. Lab results narrative: CBC shows normal white count of 7. H&H 14 and 44. Platelets 166. Electrolytes show a normal gap of 4. BUN is 63 and creatinine 1.37 consistent with dehydration. Liver enzymes are unremarkable. Labs: Laboratory Results - last 24 hr 12/30/23 11:57 WBC 7.3 RBC 4.71 Hgb 14.3 Hct 44.6 MCV 94.7 H MCH 30.4 MCHC 32.1 RDW Std Deviation 50.3 H RDW Coeff of [place] 14.4 Plt Count 166 MPV 10.8 Immature Gran % (Auto) 0.400 Neut % (Auto) 70.0 Lymph % (Auto) 19.7 [place] % (Auto) 8.1 Eos % (Auto) 1.4 Baso % (Auto) 0.4 Absolute Neuts (auto) 5.1 Absolute Lymphs (auto) 1.43 Nucleated RBC % 0 Sodium 139 Potassium 4.9 Chloride 108 H Carbon Dioxide 27.0 Anion Gap 4 L BUN 63 H Creatinine 1.37 H Estim Creat Clear Calc 53.01 Est GFR (MDRD) Af Amer 64 Est GFR (MDRD) Non-Af 53 L BUN/Creatinine Ratio 46.0 H Glucose 105 Calcium 9.0 Total Bilirubin 0.50 AST 16 ALT 34 Alkaline Phosphatase 42 L B-Natriuretic Peptide 55.2 Total Protein 7.8 Albumin 3.8 Globulin 4.0 Albumin/Globulin Ratio 1.0 Radiography Chest X-Ray - ED: 1 View, Read by ED Physician, Read by Radiologist, Heart, Lungs, Mediastinum, Bony Structures, No Acute Disease and Chronic Changes Diagnostic Testing: Clinical Impression(s) from Imaging Studies Chest X-Ray 12/30/23 12:10 IMPRESSION: No acute abnormality is seen. Stable examination. Electronically Signed: Erick Hudson MD at 12:39 EDT , Chest x-ray, portable, single view windows server specialist by myself and radiologist shows no acute abnormality. Chronic changes. No CHF. No effusions. Normal cardiac silhouette. Rhythm Strip Rhythm Strip: Sinus Rhythm Rate: 60 Ectopy: None EKG Initial EKG: Interpretation: Sinus Rhythm and No Acute Injury Pattern Discharge Plan Triage Chief Complaint: Weakness ED Midlevel Provider: Isabela Flores ED Provider: Phoenix Burgos Dx/Rx/DC Orders Clinical Impression: Bilateral leg edema Instructions: ED Peripheral Edema, Bilateral Prescriptions: No Action atenolol 25 MG tablet 25 mg PO DAILY aspirin 81 MG tablet 81 mg PO DAILY@0800 Hold Instructions: Resume on 12/30/21. meclizine 25 MG tablet 25 mg PO PRN PRN (Reason: Dizziness) cetirizine 10 mg tablet 10 mg PO DAILY Patient Comments: TAKE 1 TABLET BY MOUTH ONCE DAILY omega-3 fatty acids Capsule 1,000 mg PO DAILY psyllium husk [Daily Fiber] 0.4 gram Capsule 0.4 g PO DAILY tamsulosin 0.4 mg Capsule 0.4 mg PO BID tramadol 50 mg tablet 50 mg PO Q6H PRN (Reason: pain) 3 Days Qty: 10 0RF amlodipine 10 mg tablet 10 mg PO DAILY fluticasone propion-salmeterol 100-50 mcg/dose blister with device 1 inh INHALATION Q12H rosuvastatin 10 mg tablet 10 mg PO QHS nitroglycerin 0.4 mg tablet, sublingual 0.4 mg sublingual Q5M Patient Comments: DISSOLVE ONE TABLET UNDER THE TONGUE EVERY 5 MINUTES FOR 3 TIMES NEEDED FOR CHEST PAIN. albuterol sulfate 90 mcg/actuation HFA aerosol inhaler 1 inh INHALATION Q4H PRN (Reason: sob/wheezing) Eliquis 5 mg Tablet 5 mg PO BID 60 Days Qty: 120 0RF fluticasone propionate 50 mcg/actuation spray,suspension 1 spray INTRANASAL Q12H furosemide 20 mg tablet 20 mg PO DAILY Hold Instructions: Resume on 10/26/23. Will need repeat basic metabolic panel at follow-up to assure renal function remains appropriate with resumption. DO NOT TAKE the medication if your repeat blood pressures are systolic (top number) less than 110. This may need to be stopped completely if ongoing lower blood pressure or renal function again worsens after restart. levothyroxine 100 mcg tablet 100 mcg PO DAILY lisinopril 20 mg tablet 20 mg PO BID Hold Instructions: Resume on 10/26/23. Will need repeat basic metabolic panel at follow-up to assure renal function remains appropriate with resumption. DO NOT TAKE the medication if your repeat blood pressures are systolic (top number) less than 110. This may need to be stopped completely if ongoing lower blood pressure or renal function again worsens after restart. meloxicam 7.5 mg tablet 7.5 mg PO DAILY Hold Instructions: Resume on 10/26/23. Will need repeat basic metabolic panel at follow-up to assure renal function remains appropriate with resumption. gabapentin 400 mg Capsule 400 mg PO QHS 30 Days Qty: 30 0RF gabapentin 100 mg Capsule 200 mg PO BID 30 Days Qty: 120 0RF Primary Care Provider: Husam Deras Referrals: Husam Deras, [Primary Care Provider] - Activity Restrictions/Additional Instructions: Your screening labs today do not show any clear cause of your swelling. I recommend wearing compression stockings, elevating your legs, and increasing walking. Sometimes the blood pressure medication amlodipine can cause leg swelling. I advise you follow-up with your primary care doctor and discuss your symptoms. Disposition Disposition: Home, Self Care Discharge Date/Time: 12/30/23 13:43
--- NOTE | 2023-12-30 12:10 | RAD_ITS ---
STUDY: X-RAY CHEST REASON FOR EXAM: Male, 83 years old. Dyspnea. Dizziness. TECHNIQUE: Single AP portable view of the chest. COMPARISON: Comparison is made with prior study dated October 21, 2023. FINDINGS: EKG electrodes are seen. The lungs are clear and expanded. Scattered calcified granulomas. Stable blunting of the left costophrenic angle. Sternal cerclage wires and vascular clips are present from a prior sternotomy and coronary artery bypass graft procedure (CABG). Normal mediastinum and vanesa. Normal visualized pulmonary arteries. There is atherosclerotic calcification of the aortic arch with tortuosity. There are diffuse degenerative changes of the visualized thoracic spine. Normal visualized ribs, clavicles, and shoulders. There is no demonstrated abnormality of the visualized soft tissue structures of the upper abdomen. RAD/Chest 1 View (Portable) IMPRESSION: No acute abnormality is seen. Stable examination. Electronically Signed: Erick Hudson MD at 12:39 EDT ,
[2023-12-30 12:12] LABS: Absolute Lymphocyte Count 1.43 X10^3/uL (0.83-4.51); Absolute Neutrophil Count 5.1 X10^3/uL (2.0-7.7); Basophil# 0.03 X10^3/uL; Basophil% 0.4 % (0-1); Eosinophils% 1.4 % (0-5); Hematocrit 44.6 % (40-54); Hemoglobin 14.3 g/dL (13.0-16.5); Lymphocyte # 1.43 X10^3/ul (0.83-4.51); Lymphocyte % 19.7 % (19-41); Mean Corp Hgb Conc 32.1 g/dL (32-36); Mean Corpuscular Hgb 30.4 pg (27.0-32.0); Mean Corpuscular Volume 94.7 fL (80-94); Mean Platelet Vol. 10.8 fl (6.2-12.0); Monocyte# 0.59 X10^3/uL; Monocyte% 8.1 % (0-10); NRBC Flagged by Analyzer 0 % (0-5); Neutrophil # 5.09 X10^3/uL (2.7-7.7); Platelet Count 166 K/mm3 (150-450); RBC Distribution Width CV 14.4 % (11.6-14.6); RBC Distribution Width SD 50.3 fl (35.1-43.9); Red Blood Count 4.71 M/mm3 (4.6-6.2); White Blood Count 7.3 K/mm3 (4.4-11.0)
[2023-12-30 12:39] LABS: BNP,B-Type NATRIURETIC PEPTIDE 55.2 pg/mL (0-100)
[2023-12-30 12:40] VITALS: BP 141/63; PULSE 82; RESP 16; O2SAT 97
[2023-12-30 12:41] LABS: AST(SGOT) 16 U/L (15-37); Alanine Aminotransfer ALT/SGPT 34 U/L (16-61); Albumin, Serum 3.8 g/dL (3.2-5.0); Alkaline Phosphatase 42 U/L (45-117); Anion Gap 4 (5-15); BUN 63 mg/dL (7-18); Chloride 108 mmol/L (98-107); Creatinine, Serum 1.37 mg/dL (0.70-1.30); EST Glomerular Filtration Rate 53 mL/min (>60); Est Glom Filt Rate - Afr Amer 64 mL/min (>60); Estimated Creatinine Clearance 53.01 ml/min; Glucose 105 mg/dL (74-106); Potassium 4.9 mmol/L (3.5-5.1); Protein, Total 7.8 g/dL (6.4-8.2); Sodium Level 139 mmol/L (136-145)
[2023-12-30 13:36] VITALS: BP 147/63; PULSE 56; RESP 14; TEMP 35.5; O2SAT 97
== END 2023-12-30 13:43 | disposition home or self-care (01) ==
PROVIDERS: Physician Assistant; Emergency Provider Emergency Medicine; PCP Student in an Organized Health Care Education/Training Program; Visit Provider Emergency Medicine
DX: R60.0 Localized edema (principal); R53.1 Weakness; I10 Essential (primary) hypertension; Z87.891 Personal history of nicotine dependence; E78.5 Hyperlipidemia, unspecified; Z95.1 Presence of aortocoronary bypass graft; I25.10 Atherosclerotic heart disease of native coronary artery without angina pectoris; Z79.899 Other long term (current) drug therapy
CPT/HCPCS: 71045; 80053; 83880; 85025; 93005; 99283

== ENCOUNTER 2024-03-01 19:38 | Emergency (ER) | payer MEDICARE, MEDICAID, SELFPAY ==
[2024-03-01 19:40] VITALS: BP 134/67; PULSE 62; RESP 18; TEMP 36.6; O2SAT 95; BMI 35.2
--- NOTE | 2024-03-01 19:53 | CT_ITS ---
STUDY: CT ABDOMEN AND PELVIS WITHOUT CONTRAST REASON FOR EXAM: Male, 83 years old. Pain RADIATION DOSAGE (If Supplied By Facility): CTDIvol = ( 21.26 ) mGy, DLP = ( 1120.76 ) mGycm TECHNIQUE: Transaxial images were obtained from the dome of the diaphragm to the symphysis pubis without oral contrast, and without intravenous contrast. Sagittal and coronal images were reconstructed. Individualized dose optimization techniques were used for this CT. COMPARISON: None. FINDINGS: Mild nonspecific calcific pleural plaquing on the left . The heart size is normal. Mild coronary artery calcification. Normal liver. Normal gallbladder is not clearly visualized suggesting prior cholecystectomy.. Normal spleen. Normal pancreas. Normal bilateral adrenal glands. Multifocal minor bilateral cortical renal scarring possibly due to old inflammatory disease. No evidence for renal obstruction or mass given the limited unenhanced nature of study. . Normal visualized stomach. Normal small intestine. Diverticular changes of the descending colon without evidence for acute diverticulitis. The appendix is visualized and appears normal. Atherosclerotic changes of the aorta without evidence for aneurysm. Normal inferior vena cava. Normal retroperitoneum. Incompletely distended thick walled bladder of uncertain significance. Cannot definitively exclude cystitis. Mild nonspecific enlargement of the prostate Small bilateral fat-containing inguinal hernias. Lumbar spine demonstrates moderate spondylosis.. CT/Abdomen/Pelvis without Cont IMPRESSION: Question chronic inflammatory changes of the kidneys. No evidence for renal obstruction or mass Diverticular disease of the descending colon without evidence for acute diverticulitis. Other findings as above Electronically Signed: Zachary Rogers MD at 21:04 EDT Reading Location ID and State: [facility] / [place] Tel , Service support ,
--- NOTE | 2024-03-01 19:54 | EDS_ITS ---
HPI <GINI Escoto - Last Filed: 03/01/24 21:20> History of Present Illness Chief Complaint: Complaint Narrative Narrative: Patient is an 83-year-old male with history of cholelithiasis, NSTEMI, on Eliquis who presents to the emergency department for hematuria. Patient states this morning, when he went to the bathroom there was quite a bit of blood in his urine. He drank a lot of water today, and had no other blood in his urine since. Patient did call his PCP. Patient also complaining of some constipation has been ongoing for several days. He states he did have 3 bowel movements today, however 2 of them were not normal and small. Patient denies any abdominal pain fever chills nausea or vomiting. Denies any back pain. His doctor did call him back and told to go the emergency department. PFSH <GINI Escoto - Last Filed: 03/01/24 21:20> [facility] Medical History Chronic obstructive pulmonary disease (COPD) DVT of lower extremity (deep venous thrombosis) Wears hearing aid Wears glasses Wears partial dentures Thyroid disease Arthritis Easy bruising Back pain Former smoker Leg cramps History of stress test Cardiology follow-up encounter History of irregular heartbeat BPH (benign prostatic hyperplasia) Coronary artery disease Home Medications ?Medication ?Instructions ?Recorded ?Last Taken ?Type aspirin 81 mg tablet,delayed 81 mg PO DAILY@0800 10/10/17 10/11/17 History release atenolol 25 mg tablet 25 mg PO DAILY blood pressure 10/10/17 10/21/23 History meclizine 25 mg tablet 25 mg PO PRN PRN Dizziness 10/10/17 10/21/23 History cetirizine 10 mg tablet 10 mg PO DAILY allergies 11/03/21 Unknown History omega-3 fatty acids 1,000 mg PO DAILY 12/24/21 Unknown History psyllium husk 0.4 gram capsule 0.4 g PO DAILY fiber 12/24/21 Unknown History (Daily Fiber) tamsulosin 0.4 mg capsule 0.4 mg PO BID prostate 12/24/21 10/21/23 History albuterol sulfate 90 mcg/actuation 1 inh inhalation Q4H PRN 09/14/23 Unknown History aerosol inhaler sob/wheezing fluticasone 100 mcg-salmeterol 50 1 inh inhalation Q12H copd 09/14/23 10/21/23 History mcg/dose blistr powdr for inhalation rosuvastatin 10 mg tablet 10 mg PO QHS cholesterol 09/14/23 10/21/23 History apixaban 5 mg tablet (Eliquis) 5 mg PO BID 60 days #120 tabs 09/17/23 10/21/23 Rx fluticasone propionate 50 1 spray intranasal Q12H 10/21/23 10/21/23 History mcg/actuation nasal spray,suspension furosemide 20 mg tablet 20 mg PO DAILY 10/21/23 10/21/23 History levothyroxine 100 mcg tablet 100 mcg PO DAILY 10/21/23 10/21/23 History lisinopril 20 mg tablet 20 mg PO BID 10/21/23 10/21/23 History meloxicam 7.5 mg tablet 7.5 mg PO DAILY 10/21/23 10/21/23 History gabapentin 100 mg capsule 200 mg (2 x 100 mg) PO BID 30 days 10/23/23 Unknown Rx #120 caps gabapentin 400 mg capsule 400 mg PO QHS 30 days #30 caps 10/23/23 Unknown Rx nitroglycerin 0.4 mg sublingual 0.4 mg sublingual Q5M PRN chest 01/25/24 Unknown History tablet pain Allergy/AdvReac Type Severity Reaction Status Date / Time atorvastatin (From Lipitor) AdvReac Intermediate Other Verified 03/01/24 19:42 Family History Other Cancer Surgical History History of cholecystectomy History of cardiac catheterization Hx of shoulder surgery History of coronary artery bypass graft Social History household members: none housing: apartment pets and animals: Yes Smoking Status: Former smoker substance use type: does not use ROS <GINI Escoto - Last Filed: 03/01/24 21:20> ROS ED ROS Narrative Constitutional: Negative for fever, chills, weight loss, weakness Eyes: Negative for vision loss, vision change, double vision ENT: Negative for any sore throat, ear pain, congestion Cardiovascular: Negative for any chest pain, tightness, palpitations Respiratory: Negative for any cough, sputum production, hemoptysis, dyspnea, dyspnea on exertion, orthopnea Gastrointestinal: Negative for any abdominal pain, nausea, vomiting, diarrhea, constipation, blood in stool, blood in vomit : Negative for any urinary frequency, dysuria, retention. Positive blood in the urine Muscle skeletal: Negative for any neck pain, back pain Neurological: Negative for any headache, syncope, dizziness Skin: Negative for any rashes, itching, abrasions, lacerations Psychiatric: Negative for any depression, anxiety, stress, suicidal ideation, homicidal ideation Hematologic: Negative for any excessive bruising, easy bleeding EXAM <GNII Escoto - Last Filed: 03/01/24 21:20> Physical Exam Narrative Exam Narrative: Vital signs reviewed. HEET: Head normocephalic atraumatic, TMs clear bilaterally. Posterior pharynx is clear, moist mucous membranes. Nares clear bilaterally. Neck: Supple with no lymphadenopathy or tenderness. No signs of meningismus. Cardiac: Regular rate and rhythm no murmurs gallops or rubs, equal peripheral pulses bilaterally. Respiratory: Lungs clear to auscultation bilaterally. No chest tenderness. Abdomen: Soft, nontender, nondistended. No abdominal bruit or pulsatile masses. No hepatosplenomegaly Extremities: No peripheral edema, no signs of gross trauma or deformity. Active full range of motion of all extremities. Neuro: Cranial nerves II through XII intact, no focal neurological deficits. Skin: Clean dry and intact with no rash, purpura, petechiae, vesicles or pustules. Backs/flank: No CVA tenderness, no midline spinal tenderness, no deformity. Psych: Normal mood and affect. No SI, HI or acute psychosis. Const Vital Signs: 03/01/24 19:40 03/01/24 21:31 Temperature 98 F 98.4 F Temperature Source Temporal Pulse Rate 62 53 L Respiratory Rate 18 18 Blood Pressure 134/67 H 119/63 Blood Pressure Mean 89 81 Pulse Ox 95 94 Oxygen Delivery Method Room Air Positive well nourished and well developed General Appearance ED: well developed <Dr. Crow Gomez MD - Last Filed: 03/01/24 22:02> Physical Exam Const Vital Signs: 03/01/24 19:40 06/20/24 21:31 Temperature 98 F 98.4 F Temperature Source Temporal Pulse Rate 62 53 L Respiratory Rate 18 18 Blood Pressure 134/67 H 119/63 Blood Pressure Mean 89 81 Pulse Ox 95 94 Oxygen Delivery Method Room Air [facility] <Thong CamposGINI - Last Filed: 03/01/24 21:20> [facility] Lab Data Labs: Laboratory Results - last 24 hr 03/01/24 03/01/24 20:00 20:06 WBC 8.1 RBC 4.16 L Hgb 12.6 L Hct 40.0 MCV 96.2 H MCH 30.3 MCHC 31.5 L RDW Std Deviation 50.3 H RDW Coeff of [place] 14.3 Plt Count 176 MPV 10.9 Immature Gran % (Auto) 0.400 Neut % (Auto) 64.6 Lymph % (Auto) 22.6 [place] % (Auto) 11.7 H Eos % (Auto) 0.5 Baso % (Auto) 0.2 Absolute Neuts (auto) 5.2 Absolute Lymphs (auto) 1.82 Nucleated RBC % 0 PT 16.6 H INR 1.4 Sodium 139 Potassium 4.8 Chloride 111 H Carbon Dioxide 24.0 Anion Gap 4 L BUN 51 H Creatinine 1.41 H Estim Creat Clear Calc 52.04 Est GFR (MDRD) Af Amer 62 Est GFR (MDRD) Non-Af 51 L BUN/Creatinine Ratio 36.2 H Glucose 129 H Calcium 8.7 Urine Color Yellow Urine Clarity Clear Urine pH 6.0 Ur Specific [place] 1.010 Urine Protein 15 H Urine Glucose (UA) Normal Urine Ketones Negative Urine Occult Blood Negative Urine Nitrite Negative Urine Bilirubin Negative Urine Urobilinogen Normal Ur Leukocyte Esterase Negative Urine RBC 0 SEEN Urine WBC 0 SEEN Ur Squamous Epith Cells 0 SEEN Urine Bacteria 0 SEEN Urine Mucus 0 SEEN Radiography Diagnostic Testing: Clinical Impression(s) from Imaging Studies Abdomen/Pelvis CT 03/01/24 19:53 IMPRESSION: Question chronic inflammatory changes of the kidneys. No evidence for renal obstruction or mass Diverticular disease of the descending colon without evidence for acute diverticulitis. Other findings as above Electronically Signed: Zachary Rogers MD at 21:04 EDT , Treatment and Re-Evaluation :: Differential diagnosis includes however is not limited to: Obstructing uropathy, cystitis, UTI, pyelonephritis, side effects of anticoagulation therapy, mass Patient appears to be in no obvious respiratory distress vital signs are stable. Patient presents to the emergency department with complaints of blood in urine x 1 today. Patient will receive a urinalysis, basic laboratory values including PT/INR. CT scan of the abdomen pelvis without contrast will be obtained. All r adiologic examinations were read, reviewed by the emergency department attending. From these reads, a plan of care will be put in place. Patient's laboratory values show slight anemia with hemoglobin 12.6, this is baseline for the patient, no leukocytosis. PT shows slight elevation 16.6 with INR within normal limits. Patient's chemistries show a creatinine of 1.4, this seems to be baseline and improvement from previous. Patient's glucose slight elevated 129, urinalysis was negative for infection, negative for any blood. Currently waiting on a CT scan of the abdomen pelvis without contrast. Patient CT scan of the abdomen pelvis shows question of chronic inflammatory change in the kidneys, no evidence of any renal obstruction or mass. Diverticular disease without any diverticulitis. At this time, there is no evidence of any hematuria, patient looks generally well. Patient will be discharged home. Patient is happy with the plan of care, instructed to follow- up outpatient. Stable for discharge. <Dr. Crow Gomez MD - Last Filed: 03/01/24 22:02> [facility] Narrative Medical decision making narrative: I have personally performed a face to face assessment of the patient and have reviewed the ALEXY Note. I performed a substantive portion of the visit including all aspects of the following. My gee findings include: History is Patient urinated some blood once today, he drank some water and it resolved. No abdominal, back pain, dysuria, or urinary retention. Takes Eliquis and he does not know why. Exam is obese male benign abdomen, no CVA tenderness, well-appearing Medical Decison Making labs, urinalysis, CT, likely urologic follow-up Other additions or changes: [None] Lab Data Labs: Laboratory Results - last 24 hr 03/01/24 03/01/24 20:00 20:06 WBC 8.1 RBC 4.16 L Hgb 12.6 L Hct 40.0 MCV 96.2 H MCH 30.3 MCHC 31.5 L RDW Std Deviation 50.3 H RDW Coeff of [place] 14.3 Plt Count 176 MPV 10.9 Immature Gran % (Auto) 0.400 Neut % (Auto) 64.6 Lymph % (Auto) 22.6 [place] % (Auto) 11.7 H Eos % (Auto) 0.5 Baso % (Auto) 0.2 Absolute Neuts (auto) 5.2 Absolute Lymphs (auto) 1.82 Nucleated RBC % 0 PT 16.6 H INR 1.4 Sodium 139 Potassium 4.8 Chloride 111 H Carbon Dioxide 24.0 Anion Gap 4 L BUN 51 H Creatinine 1.41 H Estim Creat Clear Calc 52.04 Est GFR (MDRD) Af Amer 62 Est GFR (MDRD) Non-Af 51 L BUN/Creatinine Ratio 36.2 H Glucose 129 H Calcium 8.7 Urine Color Yellow Urine Clarity Clear Urine pH 6.0 Ur Specific [place] 1.010 Urine Protein 15 H Urine Glucose (UA) Normal Urine Ketones Negative Urine Occult Blood Negative Urine Nitrite Negative Urine Bilirubin Negative Urine Urobilinogen Normal Ur Leukocyte Esterase Negative Urine RBC 0 SEEN Urine WBC 0 SEEN Ur Squamous Epith Cells 0 SEEN Urine Bacteria 0 SEEN Urine Mucus 0 SEEN Radiography Diagnostic Testing: Clinical Impression(s) from Imaging Studies Abdomen/Pelvis CT 03/01/24 19:53 IMPRESSION: Question chronic inflammatory changes of the kidneys. No evidence for renal obstruction or mass Diverticular disease of the descending colon without evidence for acute diverticulitis. Other findings as above Electronically Signed: Zachary Rogers MD at 21:04 EDT Reading Location ID and State: [facility] / [place] Tel , Service support , I reviewed CT images as well as the report which I agree with, unknown if these findings are related to his symptoms or if they are chronic and unrelated. His urinalysis here shows no microscopic hematuria. Outpatient follow-up advised. Discharge Plan Triage Chief Complaint: Complaint Other Complaint: Constipation ED Midlevel Provider: Thong Campos ED Provider: Crow Gomez Dx/Rx/DC Orders Clinical Impression: Hematuria Instructions: ED Hematuria Prescriptions: No Action atenolol 25 MG tablet 25 mg PO DAILY aspirin 81 MG tablet 81 mg PO DAILY@0800 meclizine 25 MG tablet 25 mg PO PRN PRN (Reason: Dizziness) cetirizine 10 mg tablet 10 mg PO DAILY Patient Comments: TAKE 1 TABLET BY MOUTH ONCE DAILY omega-3 fatty acids Capsule 1,000 mg PO DAILY psyllium husk [Daily Fiber] 0.4 gram Capsule 0.4 g PO DAILY tamsulosin 0.4 mg Capsule 0.4 mg PO BID fluticasone propion-salmeterol 100-50 mcg/dose blister with device 1 inh INHALATION Q12H rosuvastatin 10 mg tablet 10 mg PO QHS albuterol sulfate 90 mcg/actuation HFA aerosol inhaler 1 inh INHALATION Q4H PRN (Reason: sob/wheezing) Eliquis 5 mg Tablet 5 mg PO BID 60 Days Qty: 120 0RF fluticasone propionate 50 mcg/actuation spray,suspension 1 spray INTRANASAL Q12H furosemide 20 mg tablet 20 mg PO DAILY levothyroxine 100 mcg tablet 100 mcg PO DAILY lisinopril 20 mg tablet 20 mg PO BID meloxicam 7.5 mg tablet 7.5 mg PO DAILY gabapentin 400 mg Capsule 400 mg PO QHS 30 Days Qty: 30 0RF gabapentin 100 mg Capsule 200 mg PO BID 30 Days Qty: 120 0RF Primary Care Provider: Husam Deras Referrals: Husam Deras DO [Primary Care Provider] - Activity Restrictions/Additional Instructions: Follow-up outpatient. No evidence of any blood in her urine here today. Print Language: French Disposition Disposition: Home, Self Care Discharge Date/Time: 03/01/24 21:31
[2024-03-01 20:13] LABS: Bacteria 0 SEEN /hpf (None Seen); Mucous, Urine 0 SEEN /hpf (<or=2+); Red Blood Cells-Urine 0 SEEN /hpf (0-5); Squamous Epithelial Cells - UA 0 SEEN /hpf (0-5); White Blood Cells 0 SEEN /hpf (0-5)
[2024-03-01 20:20] LABS: Absolute Lymphocyte Count 1.82 X10^3/uL (0.83-4.51); Absolute Neutrophil Count 5.2 X10^3/uL (2.0-7.7); Basophil# 0.02 X10^3/uL; Basophil% 0.2 % (0-1); Eosinophil# 0.04 X10^3/uL; Eosinophils% 0.5 % (0-5); Hemoglobin 12.6 g/dL (13.0-16.5); Lymphocyte # 1.82 X10^3/ul (0.83-4.51); Lymphocyte % 22.6 % (19-41); Mean Corp Hgb Conc 31.5 g/dL (32-36); Mean Corpuscular Hgb 30.3 pg (27.0-32.0); Mean Corpuscular Volume 96.2 fL (80-94); Mean Platelet Vol. 10.9 fl (6.2-12.0); Monocyte# 0.94 X10^3/uL; Monocyte% 11.7 % (0-10); NRBC Flagged by Analyzer 0 % (0-5); Neutrophil % 64.6 % (47-70); Platelet Count 176 K/mm3 (150-450); RBC Distribution Width CV 14.3 % (11.6-14.6); RBC Distribution Width SD 50.3 fl (35.1-43.9); Red Blood Count 4.16 M/mm3 (4.6-6.2); White Blood Count 8.1 K/mm3 (4.4-11.0)
[2024-03-01 20:30] LABS: Color, Urine Yellow (Yellow); Glucose, Dipstick Normal (Normal); Ketone-Dipstick Negative (Negative); Leukocyte Esterase-Dipstick Negative /ul (Negative); Nitrite-Dipstick Negative (Negative); Occult Blood-Urine Negative /ul (Negative); Protein-Dipstick 15 mg/dl (Negative); Urine Bilirubin Dipstick Negative (Negative); Urine Clarity Clear (Clear); Urine Urobilinogen Normal (Normal)
[2024-03-01 20:44] LABS: Anion Gap 4 (5-15); BUN 51 mg/dL (7-18); BUN/Creat Ratio 36.2 RATIO (10-20); Calcium,Total 8.7 mg/dL (8.5-10.1); Chloride 111 mmol/L (98-107); Creatinine, Serum 1.41 mg/dL (0.70-1.30); EST Glomerular Filtration Rate 51 mL/min (>60); Est Glom Filt Rate - Afr Amer 62 mL/min (>60); Estimated Creatinine Clearance 52.04 ml/min; Glucose 129 mg/dL (74-106); International Normalized Ratio 1.4; Potassium 4.8 mmol/L (3.5-5.1); Prothrombin Time (Protime)PT. 16.6 SECONDS (11.7-14.9); Sodium Level 139 mmol/L (136-145)
[2024-03-01 21:31] VITALS: BP 119/63; PULSE 53; RESP 18; TEMP 36.9; O2SAT 94
== END 2024-03-01 21:31 | disposition home or self-care (01) ==
PROVIDERS: Nurse Practitioner; Emergency Provider Emergency Medicine; PCP Student in an Organized Health Care Education/Training Program; Visit Provider Emergency Medicine
DX: R31.9 Hematuria, unspecified (principal); J44.9 Chronic obstructive pulmonary disease, unspecified; Z87.891 Personal history of nicotine dependence; Z79.01 Long term (current) use of anticoagulants; Z87.19 Personal history of other diseases of the digestive system; I25.10 Atherosclerotic heart disease of native coronary artery without angina pectoris; Z86.718 Personal history of other venous thrombosis and embolism; K57.30 Diverticulosis of large intestine without perforation or abscess without bleeding
CPT/HCPCS: 74176; 80048; 81001; 85025; 85610; 99285

== ENCOUNTER 2024-05-18 12:08 | Emergency (ER) | payer MEDICARE, MEDICAID, SELFPAY ==
[2024-05-18 12:09] VITALS: BP 135/64; PULSE 110; RESP 18; TEMP 36.3; O2SAT 100; BMI 35.9
--- NOTE | 2024-05-18 12:44 | CT_ITS ---
STUDY: CT ABDOMEN AND PELVIS WITH CONTRAST REASON FOR EXAM: Male, 83 years old. Right sided abdominal pain RADIATION DOSAGE (If Supplied By Facility): CTDIvol = ( 18.49 ) mGy, DLP = ( 1270.72 ) mGycm TECHNIQUE: Transaxial images were obtained from the dome of the diaphragm to the symphysis pubis without oral contrast. IV 100mL Isovue-370 was administered. Sagittal and coronal images were reconstructed. Individualized dose optimization techniques were used for this CT. COMPARISON: Comparison is made with prior study dated March 01, 2024. FINDINGS: Calcified left pleural plaques. Stable mild scarring at the lung bases. Coronary artery calcification. There is decreased attenuation of the liver consistent with steatosis. There are small gallstones. Normal spleen. Normal pancreas. Normal bilateral adrenal glands. Normal right kidney. Normal left kidney. Normal visualized stomach. Normal small intestine. There are scattered colonic diverticula consistent with diverticulosis. The appendix is visualized and appears normal. There is diffuse atherosclerotic calcification of the abdominal aorta, without a demonstrated aneurysm. Normal inferior vena cava. Normal retroperitoneum. Normal urinary bladder. There are prostatic calcifications. Normal abdominal wall. There are diffuse degenerative changes of the visualized lumbar spine. CT/Abdomen/Pelvis W IV Cont ONLY IMPRESSION: Fatty infiltration of the liver. Small gallstones. Sigmoid diverticulosis. Electronically Signed: Erick Hudson MD at 13:56 EDT ,
--- NOTE | 2024-05-18 12:45 | ED.VIS.GI ---
HPI HPI - GI History of Present Illness Chief Complaint: Abd Pain Narrative Narrative: 83-year-old male past medical history of COPD on 2 L of oxygen per nasal cannula presents with right-sided abdominal pain that has had for the last few days. He states 2 or 3 days ago, he developed right-sided abdominal pain. He is also had nausea, vomiting, and diarrhea over the last 4 to 5 days which has improved significantly. His pain came mainly at night, then went away. However, returned this morning so he decided to come to the emergency department for evaluation of his right sided pain. He cannot really say that anything makes it better or worse. He denies fevers or chills. He is unsure of his past abdominal surgeries, and thinks he may have had a cholecystectomy or an appendectomy. [facility] Medical History Chronic obstructive pulmonary disease (COPD) DVT of lower extremity (deep venous thrombosis) Wears hearing aid Wears glasses Wears partial dentures Thyroid disease Arthritis Easy bruising Back pain Former smoker Leg cramps History of stress test Cardiology follow-up encounter History of irregular heartbeat BPH (benign prostatic hyperplasia) Coronary artery disease Home Medications ?Medication ?Instructions ?Recorded ?Last Taken ?Type aspirin 81 mg tablet,delayed 81 mg PO DAILY@0800 10/10/17 10/11/17 History release atenolol 25 mg tablet 25 mg PO DAILY blood pressure 10/10/17 10/21/23 History meclizine 25 mg tablet 25 mg PO PRN PRN Dizziness 10/10/17 10/21/23 History cetirizine 10 mg tablet 10 mg PO DAILY allergies 11/03/21 Unknown History omega-3 fatty acids 1,000 mg PO DAILY 12/24/21 Unknown History psyllium husk 0.4 gram capsule 0.4 g PO DAILY fiber 12/24/21 Unknown History (Daily Fiber) tamsulosin 0.4 mg capsule 0.4 mg PO BID prostate 12/24/21 10/21/23 History albuterol sulfate 90 mcg/actuation 1 inh inhalation Q4H PRN 09/14/23 Unknown History aerosol inhaler sob/wheezing fluticasone 100 mcg-salmeterol 50 1 inh inhalation Q12H copd 09/14/23 10/21/23 History mcg/dose blistr powdr for inhalation rosuvastatin 10 mg tablet 10 mg PO QHS cholesterol 09/14/23 10/21/23 History apixaban 5 mg tablet (Eliquis) 5 mg PO BID 60 days #120 tabs 09/17/23 10/21/23 Rx fluticasone propionate 50 1 spray intranasal Q12H 10/21/23 10/21/23 History mcg/actuation nasal spray,suspension furosemide 20 mg tablet 20 mg PO DAILY 10/21/23 10/21/23 History levothyroxine 100 mcg tablet 100 mcg PO DAILY 10/21/23 10/21/23 History lisinopril 20 mg tablet 20 mg PO BID 10/21/23 10/21/23 History meloxicam 7.5 mg tablet 7.5 mg PO DAILY 10/21/23 10/21/23 History gabapentin 100 mg capsule 200 mg (2 x 100 mg) PO BID 30 days 10/23/23 Unknown Rx #120 caps gabapentin 400 mg capsule 400 mg PO QHS 30 days #30 caps 10/23/23 Unknown Rx nitroglycerin 0.4 mg sublingual 0.4 mg sublingual Q5M PRN chest 01/25/24 Unknown History tablet pain Allergy/AdvReac Type Severity Reaction Status Date / Time atorvastatin (From Lipitor) AdvReac Intermediate Other Verified 05/18/24 12:09 Family History Other Cancer Surgical History History of cholecystectomy History of cardiac catheterization Hx of shoulder surgery History of coronary artery bypass graft Social History household members: none housing: apartment pets and animals: Yes Smoking Status: Former smoker substance use type: does not use ROS ROS ED ROS Narrative Constitutional: No fever, no chills. HEENT: No sore throat. No neck pain. No loss of vision. No rhinorrhea. Cardiovascular: No chest pain. No palpitations. No pedal edema. Respiratory: No cough, no shortness of breath. Abdominal: Right-sided abdominal pain. 4 days of nausea, vomiting, and diarrhea-resolved Genitourinary: No dysuria. No hematuria. Musculoskeletal: No myalgias. No arthralgias. Neurologic: No headaches. No dizziness. No lightheadedness. Skin: No rash. No change in color. Psychiatric: No depression. No anxiety. EXAM Physical Exam Narrative Exam Narrative: Afebrile. Vital signs noted. Head is normocephalic and atraumatic. HEENT examination shows PERRL, EOMI. Neck and soft and supple without meningismus. Cardiovascular examination reveals a regular tachycardia. Lungs show decreased breath sounds bilateral bases but otherwise without wheezing. No stridor. Abdomen is soft with mild tenderness to palpation along the right flank. His area of most tenderness is in the right lower quadrant. No rebound or guarding. No appreciable Bains sign. Positive bowel sounds. Neurological examination shows him to be awake, alert, and oriented. Const Vital Signs: 05/18/24 12:09 05/18/24 14:09 Temperature 97.3 F L Temperature Source Temporal Pulse Rate 110 H 63 Respiratory Rate 18 23 H Blood Pressure 135/64 H 140/69 H Blood Pressure Mean 87 92 Pulse Ox 100 100 Oxygen Delivery Method Room Air Nasal Cannula Oxygen Flow Rate (L/min) 2 MDM MDM MDM Narrative Medical decision making narrative: Differential diagnosis includes but not limited to cholecystitis versus acute appendicitis versus diverticulitis versus ureterolithiasis. History and physical does not necessarily support ureterolithiasis or ureteral colic. Comprehensive workup was pursued. I do feel CT imaging is indicated given his pain. He will be bolused normal saline 1 L intravenously. I reviewed his laboratory work and he has normal white count of 7.5, hemoglobin normal at 13.0, hematocrit 41.6, platelet count low at 121. Has had chronic thrombocytopenia in the past. Review of his electrolyte panel shows chloride elevated at 112 which I think is nonspecific BUN of 31 and creatinine 1.01. While glucose is elevated at 116 he has a low anion gap of 3. LFTs are grossly unremarkable. Urinalysis is negative for infection. I do not feel antibiotics are indicated. I reviewed the radiology report of the CT of the abdomen and pelvis and there is no acute process. Upon repeat examination at approximately 1520, he is resting comfortably and easily awakened. His abdomen remains soft. I do feel he can be discharged to follow-up with his primary care provider. Return instructions to the emergency department were reviewed. Disposition is discharged home in stable condition. History & Record Review Discussion w/independent historian: Patient Lab Data Attestation: I reviewed the patient's lab results. Labs: Laboratory Results - last 24 hr 05/18/24 05/18/24 12:50 13:34 WBC 7.5 RBC 4.34 L Hgb 13.0 Hct 41.6 MCV 95.9 H MCH 30.0 MCHC 31.3 L RDW Std Deviation 49.2 H RDW Coeff of [place] 14.0 Plt Count 121 L MPV 11.2 Immature Gran % (Auto) 0.700 Neut % (Auto) 70.9 H Lymph % (Auto) 13.7 L [place] % (Auto) 12.3 H Eos % (Auto) 2.1 Baso % (Auto) 0.3 Absolute Neuts (auto) 5.3 Absolute Lymphs (auto) 1.02 Nucleated RBC % 0 Sodium 141 Potassium 4.6 Chloride 112 H Carbon Dioxide 26.0 Anion Gap 3 L BUN 31 H Creatinine 1.01 Estim Creat Clear Calc 73.37 Est GFR (MDRD) Af Amer 91 Est GFR (MDRD) Non-Af 75 BUN/Creatinine Ratio 30.7 H Glucose 116 H Calcium 8.5 Total Bilirubin 0.50 AST 18 ALT 34 Alkaline Phosphatase 46 Total Protein 7.0 Albumin 2.9 L Globulin 4.1 Albumin/Globulin Ratio 0.7 L Lipase 16 Urine Color Straw Urine Clarity Clear Urine pH 6.0 Ur Specific [place] 1.010 Urine Protein Negative Urine Glucose (UA) Normal Urine Ketones Negative Urine Occult Blood Negative Urine Nitrite Negative Urine Bilirubin Negative Urine Urobilinogen Normal Ur Leukocyte Esterase Negative Urine RBC 0 SEEN Urine WBC 0 SEEN Ur Squamous Epith Cells 0-5 SEEN Urine Bacteria 1+ Urine Mucus 0 SEEN Radiography Diagnostic Testing: Clinical Impression(s) from Imaging Studies Abdomen/Pelvis CT 05/18/24 12:44 IMPRESSION: Fatty infiltration of the liver. Small gallstones. Sigmoid diverticulosis. Electronically Signed: Erick Hudson MD at 13:56 EDT , Discharge Plan Triage Chief Complaint: Abd Pain ED Provider: Shahbaz Humphries Dx/Rx/DC Orders Clinical Impression: Abdominal pain, Flank pain Instructions: ED Flank Pain, Uncertain Cause, ED Pain, Acute, Uncertain Cause, ED Abdominal Pain Unkn Cause Male... Prescriptions: No Action atenolol 25 MG tablet 25 mg PO DAILY aspirin 81 MG tablet 81 mg PO DAILY@0800 meclizine 25 MG tablet 25 mg PO PRN PRN (Reason: Dizziness) cetirizine 10 mg tablet 10 mg PO DAILY Patient Comments: TAKE 1 TABLET BY MOUTH ONCE DAILY omega-3 fatty acids Capsule 1,000 mg PO DAILY psyllium husk [Daily Fiber] 0.4 gram Capsule 0.4 g PO DAILY tamsulosin 0.4 mg Capsule 0.4 mg PO BID fluticasone propion-salmeterol 100-50 mcg/dose blister with device 1 inh INHALATION Q12H rosuvastatin 10 mg tablet 10 mg PO QHS albuterol sulfate 90 mcg/actuation HFA aerosol inhaler 1 inh INHALATION Q4H PRN (Reason: sob/wheezing) Eliquis 5 mg Tablet 5 mg PO BID 60 Days Qty: 120 0RF fluticasone propionate 50 mcg/actuation spray,suspension 1 spray INTRANASAL Q12H furosemide 20 mg tablet 20 mg PO DAILY levothyroxine 100 mcg tablet 100 mcg PO DAILY lisinopril 20 mg tablet 20 mg PO BID meloxicam 7.5 mg tablet 7.5 mg PO DAILY gabapentin 400 mg Capsule 400 mg PO QHS 30 Days Qty: 30 0RF gabapentin 100 mg Capsule 200 mg PO BID 30 Days Qty: 120 0RF Primary Care Provider: Husam Deras Referrals: Husam Deras, DO [Primary Care Provider] - 3-5 Days if not improving Activity Restrictions/Additional Instructions: Return with fever, increased pain, new or worsening symptoms. Print Language: Palauan Disposition Disposition: Home, Self Care
[2024-05-18] MEDS: 0.9% Normal Saline (1000mL) 1,000 ML 999 ML IV (12:54)
[2024-05-18 13:02] LABS: Absolute Lymphocyte Count 1.02 X10^3/uL (0.83-4.51); Absolute Neutrophil Count 5.3 X10^3/uL (2.0-7.7); Basophil# 0.02 X10^3/uL; Basophil% 0.3 % (0-1); Eosinophil# 0.16 X10^3/uL; Eosinophils% 2.1 % (0-5); Hematocrit 41.6 % (40-54); Lymphocyte # 1.02 X10^3/ul (0.83-4.51); Lymphocyte % 13.7 % (19-41); Mean Corp Hgb Conc 31.3 g/dL (32-36); Mean Corpuscular Volume 95.9 fL (80-94); Mean Platelet Vol. 11.2 fl (6.2-12.0); Monocyte# 0.92 X10^3/uL; Monocyte% 12.3 % (0-10); NRBC Flagged by Analyzer 0 % (0-5); Neutrophil # 5.28 X10^3/uL (2.7-7.7); Neutrophil % 70.9 % (47-70); Platelet Count 121 K/mm3 (150-450); RBC Distribution Width SD 49.2 fl (35.1-43.9); Red Blood Count 4.34 M/mm3 (4.6-6.2); White Blood Count 7.5 K/mm3 (4.4-11.0)
[2024-05-18 13:20] LABS: ALB/GLOB Ratio 0.7 RATIO (0.9-2.4); AST(SGOT) 18 U/L (15-37); Alanine Aminotransfer ALT/SGPT 34 U/L (16-61); Albumin, Serum 2.9 g/dL (3.2-5.0); Alkaline Phosphatase 46 U/L (45-117); Anion Gap 3 (5-15); BUN 31 mg/dL (7-18); BUN/Creat Ratio 30.7 RATIO (10-20); Calcium,Total 8.5 mg/dL (8.5-10.1); Chloride 112 mmol/L (98-107); Creatinine, Serum 1.01 mg/dL (0.70-1.30); EST Glomerular Filtration Rate 75 mL/min (>60); Est Glom Filt Rate - Afr Amer 91 mL/min (>60); Estimated Creatinine Clearance 73.37 ml/min; Globulin 4.1 g/dL (2.2-4.2); Glucose 116 mg/dL (74-106); Lipase 16 U/L (13-75); Potassium 4.6 mmol/L (3.5-5.1); Sodium Level 141 mmol/L (136-145)
[2024-05-18 13:40] LABS: Mucous, Urine 0 SEEN /hpf (<or=2+); Red Blood Cells-Urine 0 SEEN /hpf (0-5); White Blood Cells 0 SEEN /hpf (0-5)
[2024-05-18 13:43] LABS: Color, Urine Straw (Yellow); Glucose, Dipstick Normal (Normal); Ketone-Dipstick Negative (Negative); Leukocyte Esterase-Dipstick Negative /ul (Negative); Nitrite-Dipstick Negative (Negative); Occult Blood-Urine Negative /ul (Negative); Protein-Dipstick Negative (Negative); Urine Bilirubin Dipstick Negative (Negative); Urine Clarity Clear (Clear); Urine Urobilinogen Normal (Normal)
[2024-05-18 14:06] LABS: Bacteria 1+ /hpf (None Seen); Squamous Epithelial Cells - UA 0-5 SEEN /hpf (0-5)
[2024-05-18 14:09] VITALS: BP 140/69; PULSE 63; RESP 23; O2SAT 100
[2024-05-18 15:38] VITALS: BP 147/68; PULSE 63; RESP 20; TEMP 36.4; O2SAT 100
== END 2024-05-18 15:40 | disposition home or self-care (01) ==
PROVIDERS: Emergency Provider Emergency Medicine; PCP Student in an Organized Health Care Education/Training Program; Visit Provider Emergency Medicine
DX: R10.9 Unspecified abdominal pain (principal); J44.9 Chronic obstructive pulmonary disease, unspecified; Z87.891 Personal history of nicotine dependence; I25.10 Atherosclerotic heart disease of native coronary artery without angina pectoris; R19.7 Diarrhea, unspecified; R11.2 Nausea with vomiting, unspecified; Z99.81 Dependence on supplemental oxygen
CPT/HCPCS: 74177; 80053; 81001; 83690; 85025; 96360; 96361; 99283; J7030; Q9967; A4216

== ENCOUNTER → 2024-05-29 | Outpatient (CLI) | payer MEDICARE, MEDICAID, SELFPAY ==
--- NOTE | 2024-05-29 11:03 | CT_ITS ---
INDICATION: carotid stenosis EXAMINATION: CT BRAIN WITHOUT CONTRAST, CTA HEAD, AND CTA NECK TECHNIQUE: Noncontrast axial images were obtained of the brain. Subsequently, routine carotid CT angiogram protocol was performed without and with IV contrast. In addition, images were obtained of the [place]. NASCET criteria using the distal ICAs for comparison were used for evaluation of stenoses. 3D reconstructions were reviewed. The protocol utilizes one or more of the following dose reduction techniques: automated exposure control, adjustment of mA and/or kV according to patient size,and/or use of iterative reconstruction technique. IV Contrast dosage and agent: 100 mL of Isovue-370 COMPARISON: Prior study dated: Head CT from 09/13/2023 FINDINGS: --CT BRAIN WITHOUT CONTRAST: BRAIN PARENCHYMA: No intra- or extra-axial hemorrhage. No evidence of acute infarct. No intracranial mass or mass effect. There is preservation of the das/white matter interface. Posterior fossa structures are unremarkable. Mild small vessel ischemic changes. CSF SPACES: Mild global cerebral volume loss. No hydrocephalus. Basal cisterns are patent. CALVARIUM, SKULL BASE, PARANASAL SINUSES AND MASTOID AIR CELLS: Clear. No discrete lytic or blastic abnormalities. ASPECTS Score for Acute Strokes: 10 --CTA NECK: AORTIC ARCH AND BRANCHES: Normal anatomy, patent. RIGHT CCA: No occlusion, significant stenosis or dissection. RIGHT ICA: No occlusion, significant stenosis or dissection. Mild atherosclerotic disease at the origin without flow-limiting stenosis. LEFT CCA: No occlusion, significant stenosis or dissection. LEFT ICA: No occlusion, significant stenosis or dissection. Moderate atherosclerotic disease at the origin without flow-limiting stenosis. RIGHT VERTEBRAL ARTERY: No occlusion, significant stenosis or dissection. LEFT VERTEBRAL ARTERY: No occlusion, significant stenosis or dissection. Minimal atherosclerotic calcification. NECK SOFT TISSUES: No lymphadenopathy. Mild centrilobular and paraseptal emphysema. --CTA HEAD: --Anterior circulation: ICAs: No significant stenosis at the intracranial/visualized segments. ACAs: No significant stenosis at the visualized segments. ACOM: Present. MCAs: No significant stenosis at the visualized segments. --Posterior circulation: PCOMs: Not seen. puncher: No significant stenosis at the visualized segments. BASILAR ARTERY: No significant stenosis. VERTEBRAL ARTERIES: No significant stenosis at the intradural/visualized segments. Left vertebral artery dominant. No evidence of intracranial aneurysm or vascular malformation. CT/CTA Head AND Neck W/ Contrast IMPRESSION: No acute intracranial finding. Moderate atherosclerotic disease. No large vessel occlusion or flow-limiting stenosis Electronically Signed: Carroll Carter MD at 5:15 EDT Reading Location ID and State: [facility] / [place] Tel , Service support ,
== END | disposition home or self-care (01) ==
LOC: CT 11:02
PROVIDERS: PCP Student in an Organized Health Care Education/Training Program; Referring Provider Physician Assistant; Visit Provider Physician Assistant
DX: I65.22 Occlusion and stenosis of left carotid artery (principal)
CPT/HCPCS: 70496; 70498; Q9967

== ENCOUNTER 2024-07-24 16:51 | Inpatient (IN) | payer MEDICARE, MEDICAID, SELFPAY ==
[2024-07-10 15:33] LABS: Hematocrit 42.5 % (40-54); Hemoglobin 13.5 g/dL (13.0-16.5); Mean Corp Hgb Conc 31.8 g/dL (32-36); Mean Corpuscular Hgb 30.5 pg (27.0-32.0); Mean Corpuscular Volume 96.2 fL (80-94); Mean Platelet Vol. 10.9 fl (6.2-12.0); Platelet Count 168 K/mm3 (150-450); RBC Distribution Width CV 14.6 % (11.6-14.6); RBC Distribution Width SD 52.2 fl (35.1-43.9); Red Blood Count 4.42 M/mm3 (4.6-6.2); White Blood Count 8.3 K/mm3 (4.4-11.0)
[2024-07-10 16:06] LABS: Anion Gap 5 (5-15); BUN 66 mg/dL (7-18); BUN/Creat Ratio 44.6 RATIO (10-20); Calcium,Total 9.1 mg/dL (8.5-10.1); Chloride 107 mmol/L (98-107); Creatinine, Serum 1.48 mg/dL (0.70-1.30); EST Glomerular Filtration Rate 48 mL/min (>60); Est Glom Filt Rate - Afr Amer 58 mL/min (>60); Glucose 112 mg/dL (74-106); Potassium 4.8 mmol/L (3.5-5.1); Sodium Level 141 mmol/L (136-145)
[2024-07-23 09:07] VITALS: BP 131/94; PULSE 73; RESP 16; TEMP 36.7; O2SAT 97; BMI 35.6
[2024-07-23] MEDS: Lactated Ringers 1,000 ML 15 ML IV (09:37)
--- NOTE | 2024-07-23 09:51 | PCM.PRE.AN2 ---
ASA Classification* ASA Classification ASA Classification: 3 Assessment & Plan Anesthesia* Anesthesia Assessment Anesthesia Assessment: Discussed sedation and/or anesthesia options, risks, benefits, and alternatives with patient/parents/legal guardian/POA. Questions invited. The patient/parents/legal guardian/POA seems to understand and agrees to proceed with anesthesia plan. Reviewed the physical assessment, medical history, allergy history and patient home medications list prior to surgery/procedure/anesthetic and documented any changes. Performed airway and anesthesia risk assessments. Anesthesia Type Anesthesia Type: General History Source History Obtained from:: Patient and Chart Anesthesia Focused Assessment* Temperature: 98.0 F Pulse Rate: 73 Blood Pressure: 131/94 Respiratory Rate: 16 Pulse Ox: 97 Oxygen Delivery Method: Nasal Cannula (Patient uses oxygen at night.) Airway Assessment Mouth opens: >3 cm Mallampati Score: III Teeth Condition: Partial (Upper partials out.) Neck Range of motion (ROM): Limited ROM (Decreased extension) Focused Labs Anesthesia Preop lab: CBC WBC 8.3 K/mm3 (4.4-11.0) 07/10/24 15:02 RBC 4.42 M/mm3 (4.6-6.2) L 07/10/24 15:02 Hgb 13.5 g/dL (13.0-16.5) 07/10/24 15:02 Hct 42.5 % (40-54) 07/10/24 15:02 Plt Count 168 K/mm3 (150-450) 07/10/24 15:02 CHEMISTRY Potassium 4.8 mmol/L (3.5-5.1) 07/10/24 15:02 Sodium 141 mmol/L (136-145) 07/10/24 15:02 Magnesium 2.6 mg/dL (1.6-2.6) 10/22/23 03:21 Phosphorus 2.6 mg/dL (2.5-4.9) 09/16/23 00:12 BUN 66 mg/dL (7-18) H 07/10/24 15:02 Creatinine 1.48 mg/dL (0.70-1.30) H 07/10/24 15:02 Glucose 112 mg/dL (74-106) H 07/10/24 15:02 TSH 4.320 uIU/mL (0.358-3.740) H 07/10/24 15:01 COAG PT 16.6 SECONDS (11.7-14.9) H 03/01/24 20:00 Pre-Assessment Diagnosis/Proposed Procedure Planned Operative Procedure(s): LEFT CAROTID ENDARTERECTOMY Anesthesia History 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 When Was Last Pacemaker Check QUESTION #4 FULL TEXT: You/Your Family Experience fever (hyperthermia) with Anesthesia Last Oral Intake Last Oral intake: Last Oral Intake NPO since 16:00 07/23/24 09:07 Meds taken in AM with sips of No 07/23/24 09:07 water? 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 Female Yes 07/10/24 14:05 HX of Motion Sickness No 07/10/24 14:05 HX of N/V After Surgery No 07/10/24 14:05 Non-Smoker Yes 07/10/24 14:05 Duration of Surgery greater Yes 07/10/24 14:05 than 60 minutes Number of Risk Factors 3 07/10/24 14:05 PONV Score Moderate Risk 07/10/24 14:05 Height & Weight Height & Weight: Anesthesia: Height & Weight Height 5 ft 11 in 07/23/24 09:07 Weight: 116 kg 07/23/24 09:07 Body Mass Index (BMI) 35.6 07/23/24 09:07 Respiratory Assessment Respiratory Assessment - carton making machine operator: Respiratory Tract Infection Hx - 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 Has anyone observed you stop No 07/10/24 14:05 breathing during sleep? STOP Results Negative 07/10/24 14:05 QUESTION #5 FULL TEXT : Do you snore loudly (louder than talking or can be heard through closed doors)? 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 Specify any problems Hx of Preganancy in last 3 N/A 07/10/24 14:05 Months Nurse Filling Out Transfusion DSCHRIBER 07/10/24 14:05 & Questions: Date: 07/10/24 07/10/24 14:05 Time: 14:10 07/10/24 14:05 Patient unable to answer at this time (ie. 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 making machine operator: /Reproductive Hx- carton making machine operator Hx Now No 07/10/24 14:05 Gestational Age (in weeks): EDC: Hx Hx Para Hx Section SAB No 07/10/24 14:05 Active Medications Active Medications: Current Medications Generic Name Dose Route Start Last Admin Trade Name Freq PRN Reason Stop Dose Admin Cefazolin Sodium 2 gm/ N/A 20 mls @ 400 mls/hr 07/23/24 11:30 IV 07/23/24 11:32 PREOP ONE Sodium Chloride 500 mls @ 1 mls/hr 07/23/24 09:10 IV .Q48H PRN Saline Flush Lactated Ringer's 1,000 mls @ 15 mls/hr 07/23/24 09:30 07/23/24 09:37 IV 07/26/24 04:09 15 mls/hr .Q48H ANDRE Administration Protocol [facility] Medical History Lives alone Poor historian Uses wheelchair Ambulates with cane Bladder disease High cholesterol Injury of head and neck Syncope Difficulty swallowing Shortness of breath on exertion On home oxygen therapy Leg cramps History of edema Chronic obstructive pulmonary disease (COPD) DVT of lower extremity (deep venous thrombosis) Wears hearing aid Wears glasses Wears partial dentures Thyroid disease Arthritis Back pain Former smoker Leg cramps History of stress test Cardiology follow-up encounter History of irregular heartbeat BPH (benign prostatic hyperplasia) Coronary artery disease Home Medications ?Medication ?Instructions ?Recorded ?Last Taken ?Type atenolol 25 mg tablet 25 mg PO DAILY blood pressure 10/10/17 07/22/24 History cetirizine 10 mg tablet 10 mg PO DAILY allergies 11/03/21 07/08/24 History psyllium husk 0.4 gram capsule 0.4 g PO DAILY fiber 12/24/21 Unknown History (Daily Fiber) tamsulosin 0.4 mg capsule 0.4 mg PO BID prostate 12/24/21 07/22/24 21:00 History rosuvastatin 10 mg tablet 10 mg PO QHS cholesterol 09/14/23 07/22/24 21:27 History apixaban 5 mg tablet (Eliquis) 5 mg PO BID pvd 60 days #120 tabs 09/17/23 07/17/24 Rx levothyroxine 100 mcg tablet 200 mcg PO DAILY thyroid 10/21/23 07/22/24 History lisinopril 20 mg tablet 20 mg PO BID bp 10/21/23 07/22/24 History gabapentin 400 mg capsule 400 mg PO QHS nerve pain 30 days 10/23/23 07/22/24 19:00 Rx #30 caps nitroglycerin 0.4 mg sublingual 0.4 mg sublingual Q5M PRN chest 01/25/24 Unknown History tablet pain aspirin 81 mg tablet,delayed 81 mg PO DAILY supplement 07/10/24 07/22/24 History release (Adult Low Dose Aspirin) fluticasone 250 mcg-salmeterol 50 1 ea inhalation BID asthma 07/10/24 07/22/24 15:25 History mcg/dose blistr powdr for inhalation meclizine 25 mg tablet 25 mg PO PRN PRN dizziness 07/10/24 07/22/24 09:00 History metformin 500 mg tablet 500 mg PO DAILY weight loss 07/10/24 07/22/24 09:00 History Allergy/AdvReac Type Severity Reaction Status Date / Time atorvastatin (From Lipitor) AdvReac Intermediate Other Verified 07/10/24 13:51 Family History Other Cancer Surgical History History of cholecystectomy History of cardiac catheterization Hx of shoulder surgery History of coronary artery bypass graft Social History household members: none housing: apartment pets and animals: Yes Smoking Status: Former smoker substance use type: does not use Review of Systems (Anesthesia) ROS Narrative System reviewed and no additional complaints, except as documented.
[2024-07-23 10:01] VITALS: BP 131/94; PULSE 73; RESP 16; TEMP 36.7; O2SAT 97
[2024-07-23 16:59] VITALS: BP 170/65; PULSE 75; RESP 18; TEMP 36.7; O2SAT 100; BMI 35.6
[2024-07-24] VITALS (21 sets, daily range): BP systolic 119–161; BP diastolic 39–85; PULSE 63–94; RESP 16–25; TEMP 36.3–36.8; O2SAT 92–100; BMI 35.4
[2024-07-24] MEDS: Lactated Ringers 1,000 ML 15 ML IV (10:45)
--- NOTE | 2024-07-24 13:00 | PLAQ_PTH ---
PATIENT: GEORGE KEY LOC: [facility] U#:[id number] AGE/SX: 83/M ROOM: ICU04 RE07/24/[address]: Dr. Les Webb MD : 1940 BED: 1 DIS: 07/25/2024 SPEC #: [id number] RECD: 07/24/24 18:07 STATUS: MARCI RERamos #: [id number] COREY: 07/24/24 13:[address]: Les Webb DEPT: SURGICAL PATHOLOGY RECD BY: Reece nAgelo ENTERED: 07/25/24 07:41 SP TYPE: PLAQUE OTHR DR: Dr. Husam Deras, DO Tissues: PLAQUE Procedures: Decalcification bone/plaque Surgery Specimen Level III HEADER OPERATION: Carotid endarterectomy PRE-OP DIAGNOSIS: Carotid stenosis, left TISSUE SUBMITTED: Plaque, left carotid MICROSCOPIC DIAGNOSIS Left carotid artery plaque, endarterectomy: Calcified atheromatous plaque consistent with severe stenosis. AM.mr 07/27/2024 GROSS DESCRIPTION Received in fixative is one container labeled with the patient's name and designated Plaque left carotid. The specimen consists of multiple yellow, firm plaque-like material measuring 3.0 x 2.0. x 1.0cm. Service Worker sections are submitted in one cassette after decalcification. 07/25/2024 TC:5 CPT:47837,48127
--- NOTE | 2024-07-24 13:31 | PCM.HP.BLA ---
History and Physical HPI - General General Date of Admission: 07/23/24 HPI Narrative GEORGE KEY, is a 83 M who presents with asymptomatic left carotid stenosis. His degree of stenosis warrants treatment and his lesion is moderately calcified. [facility] Medical History Lives alone Poor historian Uses wheelchair Ambulates with cane Bladder disease High cholesterol Injury of head and neck Syncope Difficulty swallowing Shortness of breath on exertion On home oxygen therapy Leg cramps History of edema Chronic obstructive pulmonary disease (COPD) DVT of lower extremity (deep venous thrombosis) Wears hearing aid Wears glasses Wears partial dentures Thyroid disease Arthritis Back pain Former smoker Leg cramps History of stress test Cardiology follow-up encounter History of irregular heartbeat BPH (benign prostatic hyperplasia) Coronary artery disease Home Medications ?Medication ?Instructions ?Recorded ?Last Taken ?Type atenolol 25 mg tablet 25 mg PO DAILY blood pressure 10/10/17 07/22/24 History cetirizine 10 mg tablet 10 mg PO DAILY allergies 11/03/21 07/08/24 History psyllium husk 0.4 gram capsule 0.4 g PO DAILY fiber 12/24/21 Unknown History (Daily Fiber) tamsulosin 0.4 mg capsule 0.4 mg PO BID prostate 12/24/21 07/22/24 21:00 History rosuvastatin 10 mg tablet 10 mg PO QHS cholesterol 09/14/23 07/22/24 21:27 History apixaban 5 mg tablet (Eliquis) 5 mg PO BID pvd 60 days #120 tabs 09/17/23 07/17/24 Rx levothyroxine 100 mcg tablet 200 mcg PO DAILY thyroid 10/21/23 07/22/24 History lisinopril 20 mg tablet 20 mg PO BID bp 10/21/23 07/22/24 History gabapentin 400 mg capsule 400 mg PO QHS nerve pain 30 days 10/23/23 07/22/24 19:00 Rx #30 caps nitroglycerin 0.4 mg sublingual 0.4 mg sublingual Q5M PRN chest 01/25/24 Unknown History tablet pain aspirin 81 mg tablet,delayed 81 mg PO DAILY supplement 07/10/24 07/22/24 History release (Adult Low Dose Aspirin) fluticasone 250 mcg-salmeterol 50 1 ea inhalation BID asthma 10/29/24 11/10/24 15:25 History mcg/dose blistr powdr for inhalation meclizine 25 mg tablet 25 mg PO PRN PRN dizziness 07/10/24 07/22/24 09:00 History metformin 500 mg tablet 500 mg PO DAILY weight loss 07/10/24 07/22/24 09:00 History Allergy/AdvReac Type Severity Reaction Status Date / Time atorvastatin (From Lipitor) AdvReac Intermediate Other Verified 07/10/24 13:51 Family History Other Cancer Surgical History History of cholecystectomy History of cardiac catheterization Hx of shoulder surgery History of coronary artery bypass graft Social History household members: none housing: apartment pets and animals: Yes Smoking Status: Former smoker substance use type: does not use ROS Constitutional Constitutional: Denies chills, fever(s), frequent falls, lethargy or weakness Eyes Eyes: Denies blind spots, change in vision or loss of vision ENT HEENT: Denies bleeding gums, hoarseness or sore throat Cardiovascular Cardiovascular: Denies abdominal pain, bluish discoloration of hand/feet, chest pain with activity, claudication, cold extremities, cyanosis, dyspnea on exertion, erythema on extremities, irregular heart rhythm, leg edema, leg ulcers, numbness in extremities or weakness in extremities Respiratory/Chest Respiratory/Chest: Denies cough, excessive phlegm production, shortness of breath at rest, shortness of breath with exertion or wheezing Gastrointestinal Gastrointestinal: Denies anorexia, change in stool character, constipation, diarrhea, melena or rectal bleeding Genitourinary Genitourinary: Denies dysuria or hematuria Musculoskeletal Musculoskeletal: Denies abnormal gait Integumentary Integumentary: Reports other Details: ; Denies erythema, non-healing lesions or wounds Neurologic Neurologic: Denies abnormal speech, focal weakness, headache(s), loss of vision, numbness, paresthesias or sensory deficit Hematologic/Lymphatic Hematologic/Lymphatic: Denies easy bleeding, easy bruising or lymphadenopathy Vital Signs Vital Signs Vital Signs: 07/23/2409:07 07/23/2409:07 07/23/2410:03 Temperature 98.0 F 98.0 F Temperature Source Temporal Pulse Rate 73 73 Respiratory Rate 16 16 Respiratory Pattern Normal Blood Pressure 131/94 H 131/94 H Blood Pressure Mean 106 Blood Pressure Source Monitor Blood Pressure Position Semi-Fowlers Blood Pressure Location Right Arm Pulse Ox 97 97 Oxygen Delivery Method Room Air Nasal Cannula Weight Weight: 255 lb 11.779 oz Body Mass Index (BMI) 35.6 Physical Exam Const alert, oriented x3, no apparent distress and healthy appearing General Appearance: cooperative; Negative for combative or lethargic Orientation / Consciousness: awake Exam Limitations: no limitations HEENT Head and Scalp: normocephalic and atraumatic Eyes EOMs intact bilaterally General Eye: normal appearance of both eyes Neck full ROM, no lymphadenopathy, thyroid normal and No no carotid bruits General: trachea midline; Negative for lymphadenopathy or tenderness Thyroid: thyroid normal Resp normal respiratory effort and no use of accessory muscles Effort and Inspection: Negative for labored, stridor or audible wheezes Cardio regular rate and regular rhythm Back/Spine Cervical Spine: cervical ROM normal Extremity full ROM, normal capillary refill and no clubbing, cyanosis or edema Skin no rashes or lesions noted and no wounds Neuro oriented x3, CN's II-XII intact bilaterally, no focal motor deficits and no sensory deficits noted Psych thought process normal, cooperative, affect normal, speech normal and activity/motor behavior normal Results Lab / Micro Data 07/10/24 15:02 07/10/24 15:02 Assessment & Plan Assessment/Plan (1) Carotid stenosis, left: PLAN: -77% left ICA stenosis, asymptomatic -left CEA
[2024-07-24] MEDS: Cefazolin 2 GM in Syringe IV (13:46)
--- NOTE | 2024-07-24 17:00 | OP.PCM_ITS ---
Operative Report (Standard) Operative Information Surgery/Procedure Performed: left carotid endarterectomy Surgeon: Les Webb Date of Procedure: 07/24/24 Procedure Start Time: 14:00 Procedure Stop Time: 17:00 Pre-Operative Diagnosis: asymptomatic left carotid stenosis Post-Operative Diagnosis: same Select all DRAINS/GRAFTS/IMPLANTS that apply: Drains Drain details: 19 Fr HELIO Type of Anesthesia: General Estimated Blood Loss: 30 Specimen collected: Yes Description of specimen(s) removed: plaque Description of surgery: HPI: Patient is an 83-year-old male with asymptomatic left internal carotid artery stenosis which has meets threshold for repair. Given the calcified nature of the lesion he is felt to be most appropriate for endarterectomy. He presents now for elective carotid endarterectomy for stroke risk reduction. Description of procedure: Upon obtaining form consent and verification correct patient procedure site patient was taken to the operating where he was placed under general anesthesia. He was then positioned prepped and draped in usual sterile fashion and timeout was performed. Oblique incision made over the anterior border the sternocleidomastoid and Bovie electrocautery used dissect down through the subcutaneous tissue at the level the platysma. The platysma was then divided and self-retaining retractors put in position with further dissection carried down to the sternocleidomastoid. This was freed along its anterior border and retracted posterior laterally exposing the carotid sheath. Sharp dissection was then used to dissect free the jugular vein along the anterior wall with the facial vein identified, ligated with silk ties, and divided. The jugular vein was then retracted laterally exposing the carotid vessels and sharp dissection was used dissect free the proximal common carotid artery. A right angle was used to place vessel loop around the proximal common carotid artery with care taken to identify and protect the vagus nerve. Sharp dissection was then utilized to dissect distally onto the internal carotid artery beyond any visible or palpable plaque. A right angle used to place a vessel loop at this location with care taken to identify and protect the hypoglossal nerve. The patient was then heparinized and allowed to circulate for 3 minutes during which time sharp dissection was used dissect free the external carotid artery and a right angle used to place a vessel loop. Vessels were then occluded first the internal followed the common and the external. A longitudinal arteriotomy was created with 11 blade on the common carotid artery and extended with Montiel scissors on the internal carotid artery beyond the plaque. A 10 [place] shunt was then placed first distally in the internal carotid artery and allowed to backbleed before placing proximally in the common carotid artery. The shunt was then interrogated and found patent with low resistance signal. We then performed her endarterectomy with a freer elevator with satisfactory endpoint distally on the internal carotid artery and eversion endarterectomy of the external carotid artery. The lumen was then flushed heparinized saline to clear debris in the distal endpoint tacked with 7-0 Prolene interrupted sutures. A bovine pericardial patch was then brought in the field and secured in position using a 6-0 Prolene in a running fashion. Prior to completing the suture line the shunt was removed and the vessel was backbled. After completing the suture line the clamp was released from the internal carotid artery along with the backbleed into the bifurcation and then reoccluded as origin. Clamps were then released from the external and common carotid artery allowing 10 heartbeats of antegrade flow to flush into the external carotid artery before reestablishing antegrade flow into the internal carotid artery. The vessels were then interrogated with Doppler with patent low resistance signal in the internal carotid artery and appropriate normal signal in the external carotid artery. Surgicel topical hemostatic was applied and heparin was reversed with protamine. The incision was then inspected for hemostasis and a 19 [place] channel HELIO placed via separate stab incision. Incision was then closed with 2-0 Vicryl, 3-0 Vicryl, 4 Monocryl and Dermabond for the skin. At the conclusion the case the patient was awakened from anesthesia and taken the recovery room with anticipated admission to the intensive care unit for hemodynamic and neurologic monitoring. Surgical Findings: Moving all extremities to command with cranial nerves intact Banking Supervisor ammunition components inspector: Yes Boiler Testing Technician: Caitlin Meade Tasks completed by psychiatric technician assistant: Opening & closing, Hemostasis: Electrocautery and Retracting Complications Complications: No
[2024-07-24] MEDS: Bupivacaine Mpf 0.5% 30 ML VIAL (17:02)
--- NOTE | 2024-07-24 17:34 | PCM.POST.ANE ---
Anesthesia: Postop Eval I Current Vital Signs Temperature: 97.8 F Pulse Rate: 82 Blood Pressure: 146/76 Respiratory Rate: 18 Pulse Ox: 100 Oxygen Delivery Method: Simple Mask Oxygen Flow Rate (L/min): 6 Assessment Airway patent: Yes Spontaneous unlabored respirations: Yes Mental status: Awake and Calm nausea: No Vomiting: No Anesthesia Complication: No Fluid Hydration Crystalloid volume administer (ml): 1,700 Total IV fluid infused: 1,700 Progress Note Anesthesia document: Postop Eval 1 completed: Yes
--- NOTE | 2024-07-24 19:18 | SUR.PHASEI ---
AT APPROXIMATELY 1845, PATIENT'S DAUGHTER, HENOK FIELDS/DIETER CALLED INTO PACU TO RECEIVE AN UPDATE ON HER FATHER. 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 SHE STATED REPEATEDLY THAT SHE IS 1 HOUR AWAY. UPDATE GIVEN TO DAUGHTER. DAUGHTER'S PHONE NUMBER IS [phone]. DAUGHTER STATES THAT SHE HAS BEEN NOTICING MOMENTS OF FORGETFULNESS AND CONFUSION IN THE PATIENT RECENTLY. HENOK STATES SHE WORKS TOMORROW UNTIL 4 PM AND WON'T BE ABLE TO BENEFIT DIRECTOR THE PATIENT UNTIL AFTER 5.
--- NOTE | 2024-07-24 19:23 | SUR.PHASEI ---
AT APPROXIMATELY 1800, #16 FR KIDD CATHETER INSERTED INTO BLADDER WITH IMMEDIATE RETURN OF MCKENZIE URINE. KIDD IS ATTACHED TO CONTINUOUS DRAINAGE.
[2024-07-24 19:29] LABS: Bedside Glucose 134 mg/dL (74-106)
[2024-07-24] MEDS: Cefazolin 1 GM/50 ML BAG IV (21:06)
[2024-07-24] MEDS: Budesonide Respules 0.5 MG/2 ML AMPUL.NEB. INHALATION (21:30)
[2024-07-24] MEDS: Albuterol 2.5 MG/3 ML VIAL.NEB. INHALATION (21:30)
[2024-07-24 21:45] LABS: Bedside Glucose 128 mg/dL (74-106)
[2024-07-24] MEDS: Gabapentin 400 MG Capsule PO (21:47)
[2024-07-24] MEDS: Rosuvastatin Calcium 5 MG Tablet 10 MG PO (21:47)
[2024-07-24] MEDS: Tamsulosin HCl 0.4 MG Capsule PO (21:47)
[2024-07-24] MEDS: Acetaminophen 500 MG Tablet 1000 MG PO (21:47)
[2024-07-25] VITALS (16 sets, daily range): BP systolic 92–134; BP diastolic 38–70; PULSE 60–73; RESP 16–24; TEMP 36.6–36.9; O2SAT 91–96; BMI 36.5
[2024-07-25] MEDS: BENZOCAINE/MENTHOL 1 LOZENGE MUCOUS MEM (02:13)
[2024-07-25 03:40] LABS: Absolute Lymphocyte Count 0.48 X10^3/uL (0.83-4.51); Absolute Neutrophil Count 8.4 X10^3/uL (2.0-7.7); Basophil# 0.01 X10^3/uL; Basophil% 0.1 % (0-1); Hematocrit 35.4 % (40-54); Hemoglobin 11.5 g/dL (13.0-16.5); Lymphocyte # 0.48 X10^3/ul (0.83-4.51); Lymphocyte % 5.1 % (19-41); Mean Corp Hgb Conc 32.5 g/dL (32-36); Mean Corpuscular Hgb 30.4 pg (27.0-32.0); Mean Corpuscular Volume 93.7 fL (80-94); Mean Platelet Vol. 10.3 fl (6.2-12.0); Monocyte# 0.47 X10^3/uL; NRBC Flagged by Analyzer 0 % (0-5); Neutrophil # 8.39 X10^3/uL (2.7-7.7); Neutrophil % 89.4 % (47-70); POSITIVE DIFFERENTIAL YES; Platelet Count 136 K/mm3 (150-450); RBC Distribution Width CV 14.3 % (11.6-14.6); Red Blood Count 3.78 M/mm3 (4.6-6.2); White Blood Count 9.4 K/mm3 (4.4-11.0)
[2024-07-25] MEDS: Levothyroxine 100 MCG Tablet 200 MCG PO (05:37)
[2024-07-25] MEDS: Cefazolin 1 GM/50 ML BAG IV (05:37)
[2024-07-25] MEDS: Acetaminophen 500 MG Tablet 1000 MG PO ×2 (05:38→15:12)
[2024-07-25 06:03] LABS: Bedside Glucose 119 mg/dL (74-106)
[2024-07-25] MEDS: 0.9% Normal Saline (500mL Bag) 500 ML 15 ML IV (06:16)
[2024-07-25] MEDS: Albuterol 2.5 MG/3 ML VIAL.NEB. INHALATION ×2 (06:55→13:33)
[2024-07-25] MEDS: Budesonide Respules 0.5 MG/2 ML AMPUL.NEB. INHALATION (06:55)
--- NOTE | 2024-07-25 07:42 | PCM.PN.SRG ---
Subjective Subjective Patient was seen resting comfortably in bed this morning. He denies any significant pain at the left neck surgical incision, left-sided headache, hoarseness, new numbness/tingling/weakness. He reports no complaints this morning. He is very eager to get home to his cats. Objective Data Objective Data Vital Signs: Vital Signs Temp Pulse Resp BP Pulse Ox O2 Del Method O2 Flow Rate 98.4 F 65 19 H 119/44 L 92 Room Air 6 07/25/24 04:00 07/25/24 07:00 07/25/24 07:00 07/25/24 07:00 07/25/24 07:00 07/25/24 07:00 07/24/24 17:40 Oxygen Flow Rate (L/min) 6 Oxygen Delivery Method Room Air Weight: 261 lb 11.019 oz Body Mass Index (BMI) 36.5 Intake & Output: Intake and Output for Last 24 Hours 07/23/24 07/24/24 07/25/24 23:59 23:59 23:59 Intake Total 2720 / 2720 51.75 / 51.75 Output Total 230 / 230 281 / 281 25 / 25 Balance -230 / -230 2439 / 2439 26.75 / 26.75 Lab / Micro Data 07/25/24 03:30 07/10/24 15:02 Labs: Laboratory Results - last 24 hr 07/24/24 19:10: POC Glucose 134 H 07/24/24 21:27: POC Glucose 128 H 07/25/24 03:30: WBC 9.4, RBC 3.78 L, Hgb 11.5 L, Hct 35.4 L, MCV 93.7, MCH 30.4, MCHC 32.5, RDW Std Deviation 49.0 H, RDW Coeff of [place] 14.3, Plt Count 136 L, MPV 10.3, Immature Gran % (Auto) 0.400, Neut % (Auto) 89.4 H, Lymph % (Auto) 5.1 L, [place] % (Auto) 5.0, Eos % (Auto) 0.0, Baso % (Auto) 0.1, Absolute Neuts (auto) 8.4 H, Absolute Lymphs (auto) 0.48 L, Nucleated RBC % 0 07/25/24 05:42: POC Glucose 119 H Physical Exam Const alert, oriented x3 and no apparent distress General Appearance: cooperative HEENT normocephalic, head/scalp atraumatic, hearing grossly normal bilaterally, external ears normal and external nose normal Eyes EOMs intact bilaterally General Eye: normal appearance of both eyes Neck Neck Narrative: Left neck incision site with surgical glue intact, no dehiscence/erythema. Mild swelling, soft to palpation. HELIO drain with serosanguineous output General: trachea midline Resp normal respiratory effort, normal air movement, no retractions and no use of accessory muscles Effort and Inspection: able to speak in complete sentences; Negative for labored, grunting or stridor Auscultation: clear to auscultation bilaterally Cardio regular rate and regular rhythm Extremity normal to inspection and no clubbing, cyanosis or edema Skin no rashes or lesions noted General Skin Exam: no breakdown Trauma: no lacerations or abrasions Neuro oriented x3, CN's II-XII intact bilaterally, moves all extremities, no focal motor deficits and no sensory deficits noted Speech: speech normal Psych mental status grossly normal Appearance: grossly normal Attitude: engaged Activity / Motor Behavior: appropriate eye contact Speech: normal speech Mood & Affect: euthymic mood Assessment & Plan Assessment/Plan (1) Carotid stenosis, left: PLAN: Plan He is status post left CEA on 07/24/2024. He has been hemodynamically and neurologically stable. HELIO drain had minimal output overnight so was removed this morning without issue, he tolerated it well. Will advance his diet as tolerated. Discontinue Little. Ambulate with nursing/PT. Anticipate discharge to home this afternoon as long as he continues to progress well.
[2024-07-25] MEDS: Aspirin E.C. 81 MG Tablet PO (09:50)
[2024-07-25] MEDS: Loratadine 10 MG Tablet PO (09:50)
[2024-07-25] MEDS: Tamsulosin HCl 0.4 MG Capsule PO (09:50)
[2024-07-25] MEDS: Enoxaparin 40 MG/0.4 ML Syringe SC (09:50)
[2024-07-25] MEDS: Psyllium 1 PACKET PO (09:50)
--- NOTE | 2024-07-25 10:34 | CASEMGMT ---
KEYA VÁZQUEZ Assessment Face to Face with patient for initial transition planning/care coordination assessment. RN CM introduced self and role at [facility], pt voices understanding. Pt is A&Ox4 and is resting comfortably in bed and is calm. Care providers, pharmacy, and demographics verified. Admitting dx: Carotid Endarterectomy PCP: Braeden Specialists: Jon (Vascular) Preferred Pharmacy: [facility] Prescription Benefit: Yes LNOK: Isabela Burgos (Daughter) Living Arrangements: Pt lives alone in a single level apartment with 4 steps to enter with handrails and denies issues entering the home. ADLs/IADLs: Reports Ind Transportation: Self, daughter, friends. Denies concerns DME: Home oxygen through [employer]. Verified pt current order states 2L continuous. Pt states that he has a concentrator, portable tanks, and a pulse ox. Pt also states that he has 3 canes, a FWW, Grab bars, shower chair, BSC, & BP Monitor. HHC/SNF: Denies Pt?s goal: Home Plan: TBD. Anticipate eventual DC home once medically ready. 6-Click score is 18. PT/OT pending. Pt states that he plans to return home at time of DC and does not anticipate needing or wanting HH or OP Tx. To follow PT/OT evaluations and recommendations. Pt denies further questions or concerns at this time. CM to follow. Velma Monroe RN, CM
[2024-07-25] MEDS: Atenolol 25 MG Tablet PO (11:35)
[2024-07-25] MEDS: Lisinopril 20 MG Tablet PO (11:35)
[2024-07-25 12:18] LABS: Bedside Glucose 116 mg/dL (74-106)
--- NOTE | 2024-07-25 13:16 | DS.PCM_ITS ---
Providers Date of Admission: 07/24/24 Primary Care Physician: Dr. Husam Deras, DO Reason For Visit: Carotid Endarterectomy Diagnosis Discharge Diagnosis (1) Carotid stenosis, left: Status: Chronic Code(s): I65.22 - Occlusion and stenosis of left carotid artery Plan He is status post left CEA on 07/24/2024. He has been hemodynamically and neurologically stable. HELIO drain had minimal output overnight so was removed this morning without issue, he tolerated it well. Will advance his diet as tolerated. Discontinue Little. Ambulate with nursing/PT. Anticipate discharge to home this afternoon as long as he continues to progress well. Medications at Discharge Home Medications atenolol 25 mg tablet 25 mg PO DAILY blood pressure 10/10/17 cetirizine 10 mg tablet 10 mg PO DAILY allergies 11/03/21 psyllium husk 0.4 gram capsule (Daily Fiber) 0.4 g PO DAILY fiber 12/24/21 tamsulosin 0.4 mg capsule 0.4 mg PO BID prostate 12/24/21 rosuvastatin 10 mg tablet 10 mg PO QHS cholesterol 09/14/23 apixaban 5 mg tablet (Eliquis) 5 mg PO BID pvd 60 days #120 tabs 09/17/23 levothyroxine 100 mcg tablet 200 mcg PO DAILY thyroid 10/21/23 lisinopril 20 mg tablet 20 mg PO BID bp 10/21/23 gabapentin 400 mg capsule 400 mg PO QHS nerve pain 30 days #30 caps 10/23/23 nitroglycerin 0.4 mg sublingual tablet 0.4 mg sublingual Q5M PRN chest pain 01/25/24 aspirin 81 mg tablet,delayed release (Adult Low Dose Aspirin) 81 mg PO DAILY supplement 07/10/24 fluticasone 250 mcg-salmeterol 50 mcg/dose blistr powdr for inhalation 1 ea inhalation BID asthma 07/10/24 meclizine 25 mg tablet 25 mg PO PRN PRN dizziness 07/10/24 metformin 500 mg tablet 500 mg PO DAILY weight loss 07/10/24 oxycodone 5 mg tablet 5 mg PO Q8H PRN PRN Pain Score 4-10 3 days #9 tabs 07/25/24 Hospital Course Operations - (L CEA) Summary of Care Provided Hospital Course: Mr. Jaya Lewis underwent scheduled L CEA on 07/24/24. The procedure was without complication and he tolerated it well. Postoperatively, he was routinely admitted to the ICU for ongoing hemodynamic and neurologic monitoring. He has remained both neurologically and hemodynamically stable throughout his admission. HELIO drain was removed POD#1 without issue. On the day of discharge, he was tolerating a normal diet, voiding without issue, pain was well controlled, and ambulating well. He was discharged home in stable condition with planned outpatient follow-up in place. Physical Exam Const alert, oriented x3 and no apparent distress General Appearance: cooperative HEENT normocephalic, head/scalp atraumatic, hearing grossly normal bilaterally, external ears normal and external nose normal Eyes EOMs intact bilaterally General Eye: normal appearance of both eyes Neck Neck Narrative: Left neck incision site with surgical glue intact, no dehiscence/erythema. Mild swelling, soft to palpation. General: trachea midline Resp normal respiratory effort, normal air movement, no retractions and no use of accessory muscles Effort and Inspection: able to speak in complete sentences; Negative for labored, grunting or stridor Auscultation: clear to auscultation bilaterally Cardio regular rate and regular rhythm Extremity normal to inspection and no clubbing, cyanosis or edema Skin no rashes or lesions noted General Skin Exam: no breakdown Trauma: no lacerations or abrasions Neuro oriented x3, CN's II-XII intact bilaterally, moves all extremities, no focal motor deficits and no sensory deficits noted Speech: speech normal Psych mental status grossly normal Appearance: grossly normal Attitude: engaged Activity / Motor Behavior: appropriate eye contact Speech: normal speech Mood & Affect: euthymic mood Weight / BMI Weight Weight: 261 lb 11.019 oz Body Mass Index (BMI) 36.5 ABG / Lab / Microbiology Data 07/25/24 03:30 07/10/24 15:02 Laboratory: Laboratory Results - last 24 hr 07/24/24 19:10: POC Glucose 134 H 07/24/24 21:27: POC Glucose 128 H 07/25/24 03:30: WBC 9.4, RBC 3.78 L, Hgb 11.5 L, Hct 35.4 L, MCV 93.7, MCH 30.4, MCHC 32.5, RDW Std Deviation 49.0 H, RDW Coeff of [place] 14.3, Plt Count 136 L, MPV 10.3, Immature Gran % (Auto) 0.400, Neut % (Auto) 89.4 H, Lymph % (Auto) 5.1 L, [place] % (Auto) 5.0, Eos % (Auto) 0.0, Baso % (Auto) 0.1, Absolute Neuts (auto) 8.4 H, Absolute Lymphs (auto) 0.48 L, Nucleated RBC % 0 07/25/24 05:42: POC Glucose 119 H 07/25/24 11:39: POC Glucose 116 H D/C Instructions Discharge Diet: No restrictions May shower in (days): 1 Weight Bearing Status: Weight bearing as tolerated Lifting Restricted to (Lbs): 20 Lifting Restrictions: Do not lift greater than 20 pounds for 3 weeks Call your doctor if your incision/area has: Sudden Increased Bleeding, Increased Pain/ Swelling and Foul Smelling Discharge Call your doctor if you observe: Fever of 101 or Higher and Uncontrolled pain Remove Dressing in: 1 day Additional Instructions: You have a small bandage over the site from which the surgical drain was removed. You may remove this bandage tomorrow evening after your first shower. As long as there is no residual drainage, you may leave this open to air. If you do notice some continued drainage, you may re-cover with a Band-Aid. Your incision site is covered with surgical glue which will continue to protect it. The surgical glue will peel/flake off on its own over the next few weeks. Please do not pick at it. You may shower tomorrow evening. It is okay for soap and water to rinse over the incision site, pat to dry. Do not submerge the incision site in water such as to take a bath or go swimming etc. for 3 weeks. Do not lift greater than 20 pounds for 3 weeks. Otherwise, please continue with activity as tolerated. Do not drive until you can turn your head well enough to safely check your blind spots. I have prescribed a prescription pain medication oxycodone 5 mg tablets to be taken by mouth every 8 hours as needed for pain. This is an opioid pain medication and is to be taken only as directed and as needed. Do not take in combination with any other prescription pain medications. You may take this in addition to Tylenol or ibuprofen as allowed. You are scheduled for a follow-up appointment in the office on 08/07/24. If you need to change this appointment or have any other questions/concerns please contact the office at [phone]. Please Follow Up With: Raquel Park PA When: 08/07/24 Meaningful Use Info Meaningful Use Meaningful Use Diagnoses (Choose all that apply): None applicable Ischemic Stroke Statin Dosing Therapy Reference: STATIN DOSE THERAPY REFERENCE: * Patients > 75 years receive moderate or high dose statin therapy. * Patients 75 years or YOUNGER should receive HIGH intensity statin dose unless contraindicated. You will be required to document reason for non-treatment if statin daily dose does not meet guidelines. HIGH DOSE STATIN THERAPY DAILY Atorvastatin > than or = to 40 mg Rosuvastatin > than or = to 20 mg Amlodipine + Atorvastatin > than or = to 2.5/40 mg Ezetimibe + Simvastatin 10/80 mg Simvastatin 80mg Discharge Plan Admission Admit Date/Time: 07/24/24 10:24 Attending Provider: Les Webb Primary Care Provider: Husam Deras Instructions Additional Instructions / Restrictions: You have a small bandage over the site from which the surgical drain was removed. You may remove this bandage tomorrow evening after your first shower. As long as there is no residual drainage, you may leave this open to air. If you do notice some continued drainage, you may re-cover with a Band-Aid. Your incision site is covered with surgical glue which will continue to protect it. The surgical glue will peel/flake off on its own over the next few weeks. Please do not pick at it. You may shower tomorrow evening. It is okay for soap and water to rinse over the incision site, pat to dry. Do not submerge the incision site in water such as to take a bath or go swimming etc. for 3 weeks. Do not lift greater than 20 pounds for 3 weeks. Otherwise, please continue with activity as tolerated. Do not drive until you can turn your head well enough to safely check your blind spots. I have prescribed a prescription pain medication oxycodone 5 mg tablets to be taken by mouth every 8 hours as needed for pain. This is an opioid pain medication and is to be taken only as directed and as needed. Do not take in combination with any other prescription pain medications. You may take this in addition to Tylenol or ibuprofen as allowed. You are scheduled for a follow-up appointment in the office on 08/07/24. If you need to change this appointment or have any other questions/concerns please contact the office at [phone]. Discharge Orders/Prescriptions Prescriptions: New oxycodone 5 mg Tablet 5 mg PO Q8H PRN PRN (Reason: Pain Score 4-10) 3 Days Qty: 9 0RF Continued atenolol 25 MG tablet 25 mg PO DAILY cetirizine 10 mg tablet 10 mg PO DAILY Patient Comments: TAKE 1 TABLET BY MOUTH ONCE DAILY psyllium husk [Daily Fiber] 0.4 gram Capsule 0.4 g PO DAILY tamsulosin 0.4 mg Capsule 0.4 mg PO BID rosuvastatin 10 mg tablet 10 mg PO QHS nitroglycerin 0.4 mg tablet, sublingual 0.4 mg sublingual Q5M PRN (Reason: chest pain) Patient Comments: DISSOLVE ONE TABLET UNDER THE TONGUE EVERY 5 MINUTES FOR 3 TIMES NEEDED FOR CHEST PAIN. levothyroxine 100 mcg tablet 200 mcg PO DAILY lisinopril 20 mg tablet 20 mg PO BID gabapentin 400 mg Capsule 400 mg PO QHS 30 Days Qty: 30 0RF fluticasone propion-salmeterol 250-50 mcg/dose blister with device 1 ea INHALATION BID meclizine 25 mg tablet 25 mg PO PRN PRN (Reason: dizziness) aspirin [Adult Low Dose Aspirin] 81 mg tablet,delayed release (DR/EC) 81 mg PO DAILY metformin 500 mg tablet 500 mg PO DAILY Held Eliquis 5 mg Tablet 5 mg PO BID 60 Days Qty: 120 0RF Hold Instructions: Resume on 07/26/24. Referrals / Follow Up: Husam Deras DO [Primary Care Provider] - Disposition Disposition (needs filled in before D/C Order can be placed): Home, Self Care
[2024-07-25 14:35] LABS: ACT Activated Clotting Time 275 sec (74-137)
[2024-07-25 14:35] LABS: ACT Activated Clotting Time 305 sec (74-137)
[2024-07-25 14:35] LABS: ACT Activated Clotting Time 134 sec (74-137)
[2024-07-25 14:35] LABS: ACT Activated Clotting Time 232 sec (74-137)
--- NOTE | 2024-07-25 14:39 | POSTOPAN2_ITS ---
Anesthesia Postop Eval I Sum Postop Eval Completion status Anesthesia document: Postop Eval 1 completed: Yes Anesthesia Postop Eval I Summary Anesthesia Postop Eval I Summary: Anesthesia Postop Eval I: Assessment Summary Airway patent Yes 07/24/24 17:38 SLOPE HOIST OPERATOR.GASTONOBY Spontaneous unlabored Yes 07/24/24 17:38 SLOPE HOIST OPERATOR.WAQAR respirations Mental status Awake,Calm 07/24/24 17:38 SLOPE HOIST OPERATOR.GASTONOBAnnia nausea No 07/24/24 17:38 SLOPE HOIST OPERATOR.GASTONOBAnnia Vomiting No 07/24/24 17:38 SLOPE HOIST OPERATOR.WAQAR Anesthesia Postop Eval I: Fluid Summary Crystalloid volume administer 1,700 07/24/24 17:38 SLOPE HOIST OPERATOR.GASTONOBY (ml) Colloids volume administered ( ml) Blood Product volume administered (ml) Total IV fluid infused 1,700 07/24/24 17:38 SLOPE HOIST OPERATOR.WAQAR Anesthesia Postop Eval I: Summary Notes Anesthesia Complication No 07/24/24 17:38 SLOPE HOIST OPERATOR.WAQAR Anesthesia Complication Comment: Post-operative progress note Anesthesia: Postop Eval II Evaluation Mental status: Awake Pain Level: 0 nausea: No Vomiting: No
--- NOTE | 2024-07-25 14:39 | PCM.POSTANE2 ---
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 Spontaneous unlabored Yes 07/24/24 17:38 SOLUTIONS SALES EXECUTIVE.WAQAR respirations Mental status Awake,Calm 07/24/24 17:38 SOLUTIONS SALES EXECUTIVE.GASTONOBAnnia nausea No 07/24/24 17:38 SOLUTIONS SALES EXECUTIVE.GASTONOBAnnia Vomiting No 07/24/24 17:38 SOLUTIONS SALES EXECUTIVE.WAQAR Anesthesia Postop Eval I: Fluid Summary Crystalloid volume administer 1,700 07/24/24 17:38 SOLUTIONS SALES EXECUTIVE.GASTONOBY (ml) Colloids volume administered ( ml) Blood Product volume administered (ml) Total IV fluid infused 1,700 07/24/24 17:38 SOLUTIONS SALES EXECUTIVE.WAQAR Anesthesia Postop Eval I: Summary Notes Anesthesia Complication No 07/24/24 17:38 SOLUTIONS SALES EXECUTIVE.WAQAR Anesthesia Complication Comment: Post-operative progress note Anesthesia: Postop Eval II Evaluation Mental status: Awake Pain Level: 0 nausea: No Vomiting: No
--- NOTE | 2024-07-25 15:39 | NURSING ---
Patient made aware that discharge orders were in Patient promptly took off heart monitor and blood pressure cuff claiming he doesn't need it. Will continue to monitor.
== END 2024-07-25 17:40 | disposition home or self-care (01) | DRG 38 ==
LOC: ICU 17:42
PROVIDERS: Anesthesiology; Admitting Provider Surgery Trauma Surgery; PCP Student in an Organized Health Care Education/Training Program; Referring Provider Surgery Trauma Surgery; Visit Provider Surgery Trauma Surgery
PROC: 03CL0ZZ Extirpation of Matter from Left Internal Carotid Artery, Open Approach (ICD-10-PCS; CPT 35301; principal; 2024-07-24 12:40)
DX: I65.22 Occlusion and stenosis of left carotid artery (principal); N13.8 Other obstructive and reflux uropathy; Z99.81 Dependence on supplemental oxygen; J44.9 Chronic obstructive pulmonary disease, unspecified; E78.00 Pure hypercholesterolemia, unspecified; I25.10 Atherosclerotic heart disease of native coronary artery without angina pectoris; N40.1 Benign prostatic hyperplasia with lower urinary tract symptoms; Z79.82 Long term (current) use of aspirin; Z79.01 Long term (current) use of anticoagulants; Z79.84 Long term (current) use of oral hypoglycemic drugs; Z79.890 Hormone replacement therapy; Z79.899 Other long term (current) drug therapy; Z87.891 Personal history of nicotine dependence; Z95.1 Presence of aortocoronary bypass graft
CPT/HCPCS: 36415; 80048; 82962; 84443; 85025; 85027; 85347; 86850; 86900; 86901; 88304; 88311; 94640; 94668; 94762; 97161; 97166; 99252; A4648; A4216; G0463; J2405

== ENCOUNTER 2024-07-26 14:27 | Emergency (ER) | payer MEDICARE, MEDICAID, SELFPAY ==
[2024-07-26 14:27] VITALS: BP 136/53; PULSE 75; RESP 20; TEMP 36.3; O2SAT 94
[2024-07-26 14:48] LABS: Bacteria 0 SEEN /hpf (None Seen); Mucous, Urine 0 SEEN /hpf (<or=2+); Squamous Epithelial Cells - UA 0 SEEN /hpf (0-5); White Blood Cells 0 SEEN /hpf (0-5)
[2024-07-26 14:59] LABS: Color, Urine Yellow (Yellow); Glucose, Dipstick Normal (Normal); Ketone-Dipstick Negative (Negative); Leukocyte Esterase-Dipstick 25 /ul (Negative); Nitrite-Dipstick Negative (Negative); Occult Blood-Urine 25 /ul (Negative); Protein-Dipstick 15 mg/dl (Negative); Urine Bilirubin Dipstick Negative (Negative); Urine Clarity Clear (Clear); Urine Urobilinogen Normal (Normal)
[2024-07-26 15:03] LABS: Red Blood Cells-Urine 0-5 SEEN /hpf (0-5)
[2024-07-26 15:45] VITALS: BP 138/56; PULSE 63; RESP 14; O2SAT 97
[2024-07-26 17:20] VITALS: BP 134/54; PULSE 65; RESP 18; O2SAT 97
== END 2024-07-26 18:07 | disposition home or self-care (01) ==
PROVIDERS: Emergency Provider Emergency Medicine; PCP Student in an Organized Health Care Education/Training Program; Visit Provider Emergency Medicine
DX: N40.1 Benign prostatic hyperplasia with lower urinary tract symptoms (principal); J44.9 Chronic obstructive pulmonary disease, unspecified; I25.10 Atherosclerotic heart disease of native coronary artery without angina pectoris; R32 Unspecified urinary incontinence; Z87.891 Personal history of nicotine dependence; E78.00 Pure hypercholesterolemia, unspecified; R35.0 Frequency of micturition; Z79.899 Other long term (current) drug therapy
CPT/HCPCS: 51702; 81001; 99283

== ENCOUNTER 2024-09-20 17:36 | Inpatient (IN) | payer MEDICARE, MEDICAID, SELFPAY ==
[2024-09-20] VITALS (13 sets, daily range): BP systolic 128–257; BP diastolic 53–227; PULSE 93–107; RESP 15–42; TEMP 35.8–36.9; O2SAT 94–97; BMI 35.2; BMI 33.5
--- NOTE | 2024-09-20 17:53 | CT_ITS ---
STUDY: CT BRAIN WITHOUT CONTRAST REASON FOR EXAM: Male, 83 years old. Fall, altered mental status, trauma RADIATION DOSAGE (If Supplied By Facility): CTDIvol = ( 44.99 ) mGy, DLP = ( 863.60 ) mGycm TECHNIQUE: Transaxial CT imaging of the brain was performed without administration of intravenous contrast material. Individualized dose optimization techniques were used for this CT. COMPARISON: October 21, 2023 FINDINGS: There is right periorbital and temporal soft tissue swelling. Normal calvarium. There is moderate cerebral atrophy with widening of the extra-axial spaces and ventricular dilatation. There are areas of decreased attenuation within the white matter tracts of the supratentorial brain, consistent with microvascular disease changes. Normal basal ganglia and thalami. Normal brainstem. Normal cerebellum. There is no intracranial hemorrhage. There are no findings of an acute ischemic infarction. Normal visualized paranasal sinuses. CT/Brain/Head without Contrast IMPRESSION: Chronic involutional changes of the brain. Electronically Signed: Crow Reyes MD at 20:07 EST ,
--- NOTE | 2024-09-20 17:54 | EKG12_ITS ---
Test Reason : FALL Blood Pressure : */* mmHG Vent. Rate : 103 BPM Atrial Rate : 103 BPM P-R Int : 162 ms QRS Dur : 84 ms QT Int : 360 ms P-R-T Axes : 54 54 227 degrees QTcB Int : [address] & T wave abnormality, consider inferolateral ischemia Abnormal ECG Confirmed by Clarke Sales ([id number]), health editor CHANTELLE HOBSON ([id number]) on 09/21/2024 9:38:02 AM Referred By: [facility] Confirmed By: Clarke Sales
--- NOTE | 2024-09-20 17:56 | CT_ITS ---
STUDY: CT CERVICAL SPINE WITHOUT CONTRAST REASON FOR EXAM: Male, 83 years old. Injury/Pain RADIATION DOSAGE (If Supplied By Facility): CTDIvol = ( 28.29 ) mGy, DLP = ( 588.26 ) mGycm TECHNIQUE: High resolution transaxial imaging was performed without contrast material. Sagittal and coronal images were reconstructed. Individualized dose optimization techniques were used for this CT. COMPARISON: September 13, 2023 FINDINGS: Normal craniovertebral junction. There are degenerative changes of the anterior atlantoaxial articulation. Normal odontoid process. Normal cervical lordosis. Normal vertebral bodies and posterior osseous elements. There is no acute fracture. C2-3: Normal endplates. Normal disc height and morphology. There is facet spurring on the left. Normal central canal and intervertebral neuroforamina. C3-4: Disc bulge with central disc protrusion. Facet spurring asymmetric to the right. Moderate canal stenosis. Right foraminal narrowing. C4-5: Disc space narrowing with endplate change and facet spurring. Moderate canal stenosis. Bilateral foraminal narrowing.. C5-6: Disc space narrowing with endplate changes. Spurring. Facet spurring. Moderate canal stenosis. Bilateral foraminal narrowing. C6-7: Normal endplates. Normal disc height and morphology. Normal central canal and intervertebral neuroforamina. C7-T1: Normal endplates. Normal disc height and morphology. Normal central canal and intervertebral neuroforamina. Normal visualized soft tissue structures. There are atherosclerotic calcifications. There are metallic densities compatible surgical clips. CT/Spine Cervical without Contras IMPRESSION: Multilevel degenerative changes, as described above. Electronically Signed: Crow Reyes MD at 20:16 EST ,
--- NOTE | 2024-09-20 18:07 | EX.ED.DYSGE1 ---
HPI History of Present Illness Chief Complaint: Fall Detail of Chief Complaint: Presumed fall and on floor for 2 days. Informant: patient Onset/Context/Timing Onset: - (Unknown) Context: Sudden Onset Timing: Continuous Quality: Patient was found on the ground. Patient has blistering and pressure sores Location: Found in his home Current Severity: Severe Maximum Severity: Severe Worsened by: Patient is disoriented. He is unable to contribute much to his history. Relieved by: Not applicable Associated Symptoms Associated Symptoms: Unable to determine Narrative Narrative: Patient is a 83-year-old male. He was found on the floor. It is presumed that he has been on the floor for 2 days. Reviewing his records indicates he is on an anticoagulant. He has history of peripheral artery disease. 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 Patient does endorse neck pain. Will order a collar. Since there is evidence of head trauma will need to presume he has a intracranial injury. Unable to get any other history from patient [facility] Medical History Lives alone Poor historian Uses wheelchair Ambulates with cane Bladder disease High cholesterol Injury of head and neck Syncope Difficulty swallowing Shortness of breath on exertion On home oxygen therapy Leg cramps History of edema Chronic obstructive pulmonary disease (COPD) DVT of lower extremity (deep venous thrombosis) Wears hearing aid Wears glasses Wears partial dentures Thyroid disease Arthritis Back pain Former smoker Leg cramps History of stress test Cardiology follow-up encounter History of irregular heartbeat BPH (benign prostatic hyperplasia) Coronary artery disease Home Medications ?Medication ?Instructions ?Recorded ?Last Taken ?Type atenolol 25 mg tablet 25 mg PO DAILY blood pressure 10/10/17 07/22/24 History cetirizine 10 mg tablet 10 mg PO DAILY allergies 11/03/21 07/08/24 History psyllium husk 0.4 gram capsule 0.4 g PO DAILY fiber 12/24/21 Unknown History (Daily Fiber) tamsulosin 0.4 mg capsule 0.4 mg PO BID prostate 12/24/21 07/22/24 21:00 History rosuvastatin 10 mg tablet 10 mg PO QHS cholesterol 09/14/23 07/22/24 21:27 History apixaban 5 mg tablet (Eliquis) 5 mg PO BID pvd 60 days #120 tabs 09/17/23 07/17/24 Rx levothyroxine 100 mcg tablet 200 mcg PO DAILY thyroid 10/21/23 07/22/24 History lisinopril 20 mg tablet 20 mg PO BID bp 10/21/23 07/22/24 History gabapentin 400 mg capsule 400 mg PO QHS nerve pain 30 days 10/23/23 07/22/24 19:00 Rx #30 caps nitroglycerin 0.4 mg sublingual 0.4 mg sublingual Q5M PRN chest 01/25/24 Unknown History tablet pain aspirin 81 mg tablet,delayed 81 mg PO DAILY supplement 07/10/24 07/22/24 History release (Adult Low Dose Aspirin) fluticasone 250 mcg-salmeterol 50 1 ea inhalation BID asthma 07/10/24 07/22/24 15:25 History mcg/dose blistr powdr for inhalation meclizine 25 mg tablet 25 mg PO PRN PRN dizziness 07/10/24 07/22/24 09:00 History metformin 500 mg tablet 500 mg PO DAILY weight loss 07/10/24 07/22/24 09:00 History naproxen sodium 220 mg tablet 220 mg PO Q12H PRN 08/07/24 Unknown History (Aleve) levothyroxine 150 mcg tablet 150 mcg PO DAILY 09/20/24 Unknown History Allergy/AdvReac Type Severity Reaction Status Date / Time atorvastatin (From Lipitor) AdvReac Intermediate Other Verified 08/07/24 08:41 Family History Other Cancer Surgical History S/P carotid endarterectomy History of cholecystectomy History of cardiac catheterization Hx of shoulder surgery History of coronary artery bypass graft Social History household members: none housing: apartment pets and animals: Yes Smoking Status: Former smoker substance use type: does not use ROS ROS ED Review of Systems ROS Unobtainable: due to mental status EXAM Physical Exam Const Vital Signs: 09/20/24 17:38 09/20/24 17:38 09/20/24 17:48 Temperature 97.7 F L 97.7 F L Temperature Source Oral Temporal Pulse Rate 107 H 107 H Respiratory Rate 32 H 33 H Respiratory Depth Shallow Respiratory Pattern Tachypnea Blood Pressure 139/111 H 139/111 H Blood Pressure Mean 120 120 Pulse Ox 96 95 Oxygen Delivery Method Room Air Room Air Room Air Oxygen Flow Rate (L/min) 94 09/20/24 18:36 09/20/24 18:48 09/20/24 20:03 Temperature 97.2 F L 98.5 F Temperature Source Oral Axillary Pulse Rate 107 H 97 96 Respiratory Rate 27 H 23 H 22 H Respiratory Depth Respiratory Pattern Blood Pressure 139/104 H 165/67 H 157/66 H Blood Pressure Mean 115 99 96 Pulse Ox 96 97 96 Oxygen Delivery Method Room Air Room Air Room Air Oxygen Flow Rate (L/min) Positive well nourished, well developed and unkempt General Appearance ED: unkempt, well developed and NAD; Negative for pallor HEENT Reports dry mucous membranes HEENT Narrative: There is evidence of trauma to the head and face. Predominately on the right side. There is no CSF otorrhea or rhinorrhea. Negative Rosado sign raccoon sign. No septal deviation hematoma. There is no hemotympanum. trauma Mouth ED: Yes dry mucous membranes Mouth: dry mucous membranes Eyes PERRL and EOMs intact bilaterally Eyes Narrative: There is no scleral icterus. There is no subconjunctival hemorrhage noted. Neck no lymphadenopathy and no JVD Neck Narrative: There is midline posterior neck pain. Chest Wall palpation of chest normal; Negative for inspection of chest normal Chest Narrative: Pressure sore and blistering noted right pectoral area. There is no crepitus or subcutaneous air. Patient has rhonchorous breath sounds bilaterally. Resp No normal respiratory effort and No clear to auscultation bilaterally Resp Narrative: There is minimal use of accessory muscles. Cardio regular rhythm, S1 normal heart sound, S2 normal heart sound and no murmurs Rate: tachycardic GI normal to inspection, nondistended, normoactive bowel sounds, non-tender, non-distended and no masses; Negative for hepatosplenomegaly Back/Spine no CVA tenderness Extremity Extremity Narrative: Pressure sores and blistering noted. Neuro No oriented x3, CN's II-XII intact bilaterally and no sensory deficits noted Neuro Narrative: He is not oriented to time. He does not know the month, year, day of the week or day of the month. There is no clonus or Babinski sign noted. Sensorium / Orientation: alert and orientation impaired Psych Psych Narrative: Unable to determine Appearance: unkempt Skin No no wounds and No skin turgor normal General Skin Exam: Negative for jaundice or pallor MDM MDM MDM Narrative Medical decision making narrative: With history of fall on anticoagulant with evidence of head trauma and neck pain will obtain CT of the head and neck. Will obtain chest x-ray because of his abnormal respiratory sounds. Consideration is pneumonia, aspiration. CPK was ordered because of concern for rhabdomyolysis. Little was placed for accurate I's and O's. Troponin to rule out cardiac ischemia. EKG to determine rhythm and rule out cardiac ischemia. Blood work to assess for endorgan dysfunction, coagulopathy. History & Record Review Additional record(s) reviewed:: Prior inpatient record (Inpatient H&P by Dr. Les Webb for carotid stenosis left.) and Prior ED visit (Seen July 26 for BPH.) Lab Data Attestation: I reviewed the patient's lab results. Lab results narrative: White count is elevated 11.5 thousand with shift. H&H is 10.1 and 32.3. Prior H&H is 11.5 and 35.4 on 07/25/2024. Urinalysis reveals spec gravity 1.025. There is ketones. Macro is positive for bilirubin, urobilinogen and leukoesterase as well as protein and occult blood. Micro is pending. Basic metabolic panel is marked for sodium of 152, potassium of 2.5, chloride of 127, CO2 of 19 with an anion gap of 6. BUN and creatinine are 35 and 1.55 which are close to his baseline with an estimated GFR of 46. BUN to creatinine ratio is elevated 23-1. Lactate is elevated 2.2. Lipase was normal. CPK is elevated at 875. Troponin is elevated at 97. Labs: Laboratory Results - last 24 hr 09/20/24 09/20/24 09/20/24 18:06 18:20 18:33 WBC 11.5 H RBC 3.41 L Hgb 10.1 L Hct 32.3 L MCV 94.7 H MCH 29.6 MCHC 31.3 L RDW Std Deviation 51.4 H RDW Coeff of [place] 14.9 H Plt Count 173 MPV 11.5 Immature Gran % (Auto) 0.700 Neut % (Auto) 86.0 H Lymph % (Auto) 4.3 L [place] % (Auto) 8.9 Eos % (Auto) 0.0 Baso % (Auto) 0.1 Absolute Neuts (auto) 9.9 H Absolute Lymphs (auto) 0.49 L Nucleated RBC % 0 PT 18.4 H INR 1.5 APTT 33.1 Sodium 152 H Potassium 2.5 L* Chloride 127 H* Carbon Dioxide 19.0 L Anion Gap 6 BUN 35 H Creatinine 1.55 H Estim Creat Clear Calc 47.26 Est GFR (MDRD) Af Amer 55 L Est GFR (MDRD) Non-Af 46 L BUN/Creatinine Ratio 22.6 H Glucose 96 Lactic Acid 2.2 H* Calcium 5.2 L* Total Bilirubin 0.50 AST 27 ALT 15 L Alkaline Phosphatase 39 L Total Creatine Kinase Troponin I High Sens 97 H Total Protein 4.2 L Albumin 1.7 L Globulin 2.5 Albumin/Globulin Ratio 0.7 L Lipase < 10 L Urine Color Yellow Urine Clarity Clear Urine pH 5.0 Ur Specific [place] 1.025 Urine Protein 30 H Urine Glucose (UA) Normal Urine Ketones 5 H Urine Occult Blood 10 H Urine Nitrite Negative Urine Bilirubin 1 H Urine Urobilinogen 1 H Ur Leukocyte Esterase 25 H Urine RBC 0-5 SEEN Urine WBC 0-5 SEEN Ur Squamous Epith Cells 0 SEEN Urine Bacteria 0 SEEN Urine Mucus 0 SEEN POC Glucose 128 H 09/20/24 18:35 WBC RBC Hgb Hct MCV MCH MCHC RDW Std Deviation RDW Coeff of [place] Plt Count MPV Immature Gran % (Auto) Neut % (Auto) Lymph % (Auto) [place] % (Auto) Eos % (Auto) Baso % (Auto) Absolute Neuts (auto) Absolute Lymphs (auto) Nucleated RBC % PT INR APTT Sodium Potassium Chloride Carbon Dioxide Anion Gap BUN Creatinine Estim Creat Clear Calc Est GFR (MDRD) Af Amer Est GFR (MDRD) Non-Af BUN/Creatinine Ratio Glucose Lactic Acid Calcium Total Bilirubin AST ALT Alkaline Phosphatase Total Creatine Kinase 875 H Troponin I High Sens Total Protein Albumin Globulin Albumin/Globulin Ratio Lipase Urine Color Urine Clarity Urine pH Ur Specific [place] Urine Protein Urine Glucose (UA) Urine Ketones Urine Occult Blood Urine Nitrite Urine Bilirubin Urine Urobilinogen Ur Leukocyte Esterase Urine RBC Urine WBC Ur Squamous Epith Cells Urine Bacteria Urine Mucus POC Glucose CT of the head reveals air-fluid level in the right maxillary sinus. There is no [place] fracture. There is no evidence of epidural hematoma, subdural hematoma, traumatic subarachnoid hemorrhage or intraparenchymal contusion. CT of the neck without contrast reveals minimal degenerative changes. Is no prevertebral soft tissue swelling. There is no fracture, subluxation or dislocation. ABG Data ABG results: ABG 09/20/24 18:18 Specimen Type ART Sample Site L Radial pH 7.40 Bicarbonate Actual 24.6 Total CO2 26 Base Excess 0 O2 Saturation 91 L ABG pCO2 39.4 ABG pO2 62 L [place] Test Positive O2 Delivery Device Room Air Vent Mode Not entered Radiography Chest X-Ray - ED: 1 View, Read by ED Physician ([id number]), Normal, Heart, Mediastinum, Bony Structures, Right Infiltrate (Infiltrate right lower lobe. Location of infiltrate does raise concern/suspicion for possible aspiration specially he was lying on his right side. Will await lactate level to determine if he needs blood cultures prior to starting antibiotics.) and - (Single view portable chest x-ray reveals line to be in proper position. There is no evidence of hemothorax or pneumothorax.) Diagnostic Testing: Clinical Impression(s) from Imaging Studies Brain CT 09/20/24 17:53 IMPRESSION: Chronic involutional changes of the brain. Electronically Signed: Crow Reyes MD at 20:07 EST , Chest X-Ray 09/20/24 18:55 IMPRESSION: Lower lung atelectasis or infiltrates. Electronically Signed: Crow Reyes MD at 20:04 EST , Rhythm Strip Rhythm Strip: Sinus Tach Rate: 105 Ectopy: None EKG Initial EKG: Attestation: I personally reviewed and interpreted this EKG as follows: Interpretation: Sinus Tachycardia (Rate is 103. There is ST-T wave changes inferolateral leads. There is also artifact. There is decreased anterior force. NM interval is under 62 ms. QS duration 84 ms per QT duration 260 ms. [place] is normal. ) Management Discussion w/another healthcare provider: Hospitalist (Hospitalist asked for me to repeat the comprehensive metabolic panel. Will hold the potassium drip and calcium infusion until the comprehensive panel results are known.) Treatment and Re-Evaluation :: Because of the elevated lactate with suspected aspiration pneumonitis blood cultures were obtained. Will correct his sodium slowly. He does have mild rhabdomyolysis. He also has a calcium of 5.2. Ionized calcium was ordered. Will order also magnesium because of his hypokalemia. Will start patient on calcium drip and potassium drip. Procedures Other Procedures Procedure(s): Light of the electrolyte abnormality will place triple-lumen. Since patient has not taken his Eliquis in 2 days there is no concern for increased bleeding. Suspect will place a subclavian versus IJ. Patient cannot give consent since he has metabolic and cephalitis. Patient was prepped draped sterile manner. All participants in room were wearing a And mask. I was appropriately dressed with sterile gown and gloves mask and. the area was prepped draped sterile manner. The area was anesthetized with lidocaine for local infiltration. The right subclavian vein was cannulated successfully on first attempt on the way in. Using Salinger technique 7.5 Pashto triple-lumen was placed. There was free flow of blood from all ports. Critical Care Time Critical Care Time: Yes Critical care time (excluding procedures): 30-74 minutes (42), Including time spent: (History, physical, documentation, interpretation of laboratory results initiation of treatment for aspiration, electrolyte abnormality encephalopathy), Discussing w/Consultants and Arranging Admission or Transfer Discharge Plan Dx/Rx/DC Orders Clinical Impression: Encephalitis, Elevated troponin, Carotid stenosis, left, PAD (peripheral artery disease), Acute hypernatremia, Acute hypokalemia, Hypocalcemia, Acute aspiration pneumonitis, Acidosis, lactic, Elevated CPK, Chronic kidney disease, Hypoxia, Prerenal azotemia Disposition Disposition: [facility]
[2024-09-20 18:21] LABS: Allen Test Positive; Base Excess 0 mmol/L (-2 to +2); Bicarbonate 24.6 mmol/L (22-26); Blood Gas Specimen Type ART; Mode Not entered; O2 Delivery Device Room Air; PO2 62 mmHG (75-100); SITE L Radial; SO2 91 % (95-99); Total Carbon Dioxide 26 mmol/L; pCO2 39.4 mmHg (35-45)
[2024-09-20 18:23] LABS: Bedside Glucose 128 mg/dL (74-106)
[2024-09-20] MEDS: 0.9% Normal Saline (1000mL) 1,000 ML 1000 ML IV (18:27)
[2024-09-20 18:44] LABS: Bacteria 0 SEEN /hpf (None Seen); Mucous, Urine 0 SEEN /hpf (<or=2+); Squamous Epithelial Cells - UA 0 SEEN /hpf (0-5)
[2024-09-20 18:49] LABS: Absolute Lymphocyte Count 0.49 X10^3/uL (0.83-4.51); Absolute Neutrophil Count 9.9 X10^3/uL (2.0-7.7); Basophil# 0.01 X10^3/uL; Basophil% 0.1 % (0-1); Hematocrit 32.3 % (40-54); Hemoglobin 10.1 g/dL (13.0-16.5); Lymphocyte # 0.49 X10^3/ul (0.83-4.51); Lymphocyte % 4.3 % (19-41); Mean Corp Hgb Conc 31.3 g/dL (32-36); Mean Corpuscular Hgb 29.6 pg (27.0-32.0); Mean Corpuscular Volume 94.7 fL (80-94); Mean Platelet Vol. 11.5 fl (6.2-12.0); Monocyte# 1.02 X10^3/uL; Monocyte% 8.9 % (0-10); NRBC Flagged by Analyzer 0 % (0-5); Neutrophil # 9.86 X10^3/uL (2.7-7.7); POSITIVE DIFFERENTIAL YES; Platelet Count 173 K/mm3 (150-450); RBC Distribution Width CV 14.9 % (11.6-14.6); RBC Distribution Width SD 51.4 fl (35.1-43.9); Red Blood Count 3.41 M/mm3 (4.6-6.2); White Blood Count 11.5 K/mm3 (4.4-11.0)
--- NOTE | 2024-09-20 18:55 | RAD_ITS ---
STUDY: X-RAY CHEST REASON FOR EXAM: Male, 83 years old. Tachypnea, bilateral rhonchi TECHNIQUE: Single AP portable view of the chest. COMPARISON: December 30, 2023 FINDINGS: There are monitoring devices. There are mild lower lung increased opacities. There is no demonstrated pleural abnormality. Sternal cerclage wires are present from a prior sternotomy. Normal mediastinum and vanesa. Normal visualized pulmonary arteries. There is atherosclerotic calcification of the aortic arch with tortuosity. There is demineralization of the osseous structures. There is degenerative change of the spine. Normal visualized ribs, clavicles, and shoulders. There is no demonstrated abnormality of the visualized soft tissue structures of the upper abdomen. RAD/Chest 1 View (Portable) IMPRESSION: Lower lung atelectasis or infiltrates. Electronically Signed: Crow Reyes MD at 20:04 EST ,
[2024-09-20 18:58] LABS: Color, Urine Yellow (Yellow); Glucose, Dipstick Normal (Normal); Ketone-Dipstick 5 mg/dl (Negative); Leukocyte Esterase-Dipstick 25 /ul (Negative); Nitrite-Dipstick Negative (Negative); Occult Blood-Urine 10 /ul (Negative); Protein-Dipstick 30 mg/dl (Negative); Specific Gravity, Urine 1.025 (1.002-1.030); Urine Clarity Clear (Clear); Urine Urobilinogen 1 mg/dl (Normal)
[2024-09-20 19:00] LABS: Urine Bilirubin Dipstick 1 mg/dL (Negative)
[2024-09-20 19:01] LABS: International Normalized Ratio 1.5; Prothrombin Time (Protime)PT. 18.4 SECONDS (11.7-14.9)
[2024-09-20 19:02] LABS: Partial Thromboplast Time 33.1 Seconds (24.1-36.2)
[2024-09-20 19:15] LABS: CPK Total, Creatine Kinase 875 U/L (39-308)
[2024-09-20 19:29] LABS: Lactic Acid 2.2 mmol/L (0.4-1.9)
[2024-09-20 19:31] LABS: ALB/GLOB Ratio 0.7 RATIO (0.9-2.4); AST(SGOT) 27 U/L (15-37); Alanine Aminotransfer ALT/SGPT 15 U/L (16-61); Albumin, Serum 1.7 g/dL (3.2-5.0); Alkaline Phosphatase 39 U/L (45-117); Anion Gap 6 (5-15); BUN 35 mg/dL (7-18); BUN/Creat Ratio 22.6 RATIO (10-20); Calcium,Total 5.2 mg/dL (8.5-10.1); Chloride 127 mmol/L (98-107); Creatinine, Serum 1.55 mg/dL (0.70-1.30); EST Glomerular Filtration Rate 46 mL/min (>60); Est Glom Filt Rate - Afr Amer 55 mL/min (>60); Estimated Creatinine Clearance 47.26 ml/min; Globulin 2.5 g/dL (2.2-4.2); Glucose 96 mg/dL (74-106); Lipase < 10 U/L (13-75); Potassium 2.5 mmol/L (3.5-5.1); Protein, Total 4.2 g/dL (6.4-8.2); Sodium Level 152 mmol/L (136-145); Troponin-I HS 97 pg/mL (3.0-78.0)
[2024-09-20 19:33] LABS: Red Blood Cells-Urine 0-5 SEEN /hpf (0-5); White Blood Cells 0-5 SEEN /hpf (0-5)
--- NOTE | 2024-09-20 20:05 | RAD_ITS ---
EXAM: XR CHEST, 1 VIEW CLINICAL INDICATION: Evaluate for for line placement and rule out pneum TECHNIQUE: Frontal view of the chest. COMPARISON: 09/20/2024 FINDINGS: LUNGS AND PLEURAL SPACES: Right greater than left basilar pulmonary opacities may be atelectasis or perhaps pneumonia. No pneumothorax. No effusion. HEART: Status post CABG. MEDIASTINUM: Central airways and mediastinal contour are unremarkable. BONES/JOINTS: Median sternotomy. No acute fracture. SOFT TISSUES: No significant abnormality. VASCULATURE: Atherosclerosis. TUBES, LINES AND DEVICES: Right subclavian venous catheter with tip overlying the superior cava atrial junction. RAD/Chest 1 View (Portable) IMPRESSION: 1. Right greater than left basilar pulmonary opacities may be atelectasis or perhaps pneumonia. 2. Right subclavian venous catheter with tip overlying the superior cava atrial junction. No pneumothorax. 3. Status post CABG. Electronically Signed: Mehul Kohler DO at 21:34 EST ,
[2024-09-20] MEDS: Ampicillin/Sulbactam 3 GM in 0.9% Normal Saline (100mL MB+) 100 ML IV (20:18)
[2024-09-20 20:29] LABS: Ionized Calcium 1.14 mmol/L (1.09-1.30)
[2024-09-20 20:32] LABS: Ionized Calcium Order 1.14
[2024-09-20] MEDS: Azithromycin 500 MG in 0.9% Normal Saline (250mL Bag) 250 ML 255 MG IV (20:37)
[2024-09-20 20:39] LABS: Magnesium 2.1 mg/dL (1.6-2.6)
[2024-09-20 20:50] LABS: ALB/GLOB Ratio 0.8 RATIO (0.9-2.4); AST(SGOT) 43 U/L (15-37); Alanine Aminotransfer ALT/SGPT 23 U/L (16-61); Albumin, Serum 2.7 g/dL (3.2-5.0); Alkaline Phosphatase 58 U/L (45-117); Anion Gap 7 (5-15); BUN 52 mg/dL (7-18); BUN/Creat Ratio 19.9 RATIO (10-20); Calcium,Total 8.3 mg/dL (8.5-10.1); Chloride 115 mmol/L (98-107); Creatinine, Serum 2.61 mg/dL (0.70-1.30); EST Glomerular Filtration Rate 25 mL/min (>60); Est Glom Filt Rate - Afr Amer 30 mL/min (>60); Estimated Creatinine Clearance 28.07 ml/min; Globulin 3.6 g/dL (2.2-4.2); Glucose 140 mg/dL (74-106); Potassium 3.8 mmol/L (3.5-5.1); Protein, Total 6.3 g/dL (6.4-8.2); Sodium Level 148 mmol/L (136-145)
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
[2024-09-20] MEDS: 0.9% Saline Lock 10 ML Syringe IV (22:31)
[2024-09-20] MEDS: 0.45% Normal Saline 1,000 ML 150 ML IV (22:31)
[2024-09-20] MEDS: Tamsulosin HCl 0.4 MG Capsule PO (22:36)
[2024-09-20] MEDS: APIXABAN 5 MG TABLET PO (22:36)
[2024-09-20] MEDS: Gabapentin 400 MG Capsule PO (22:37)
[2024-09-20 22:42] LABS: Reflex Lactate? Y
[2024-09-20 23:55] LABS: Vitamin B12 463 pg/mL (211-911)
[2024-09-21] LABS: Ferritin 175 ng/mL (26-388); Iron 17 ug/dL (65-175); Iron Binding Capacity,Total 175 ug/dL (250-450); PERCENT IRON SATURATION 9.7 % (15.0-55.0); T4 Free Direct 1.16 ng/dL (0.76-1.46)
[2024-09-21 00:04] LABS: Lactic Acid 1.4 mmol/L (0.4-1.9)
[2024-09-21 04:15] VITALS: BP 108/72; PULSE 106; RESP 18; TEMP 36; O2SAT 95
[2024-09-21] MEDS: Levothyroxine 100 MCG Tablet 200 MCG PO (05:20)
[2024-09-21] MEDS: 0.9% Saline Lock 10 ML Syringe IV (05:23)
[2024-09-21 05:42] VITALS: BP 118/66; PULSE 103; RESP 16; TEMP 36.1; O2SAT 97
[2024-09-21 07:28] LABS: Hematocrit 32.8 % (40-54); Hemoglobin 10.4 g/dL (13.0-16.5); Mean Corp Hgb Conc 31.7 g/dL (32-36); Mean Corpuscular Hgb 29.4 pg (27.0-32.0); Mean Corpuscular Volume 92.7 fL (80-94); Mean Platelet Vol. 11.5 fl (6.2-12.0); Platelet Count 200 K/mm3 (150-450); RBC Distribution Width CV 14.9 % (11.6-14.6); RBC Distribution Width SD 51.3 fl (35.1-43.9); Red Blood Count 3.54 M/mm3 (4.6-6.2); White Blood Count 14.1 K/mm3 (4.4-11.0)
[2024-09-21 07:37] VITALS: PULSE 79; RESP 20; O2SAT 95
[2024-09-21] MEDS: Albuterol 2.5 MG/3 ML VIAL.NEB. INHALATION (07:37)
[2024-09-21] MEDS: Budesonide Respules 0.5 MG/2 ML AMPUL.NEB. INHALATION (07:37)
[2024-09-21 08:32] LABS: Anion Gap 7 (5-15); BUN 62 mg/dL (7-18); BUN/Creat Ratio 25.1 RATIO (10-20); CPK Total, Creatine Kinase 1253 U/L (39-308); Calcium,Total 7.8 mg/dL (8.5-10.1); Chloride 111 mmol/L (98-107); Creatinine, Serum 2.47 mg/dL (0.70-1.30); EST Glomerular Filtration Rate 27 mL/min (>60); Est Glom Filt Rate - Afr Amer 32 mL/min (>60); Estimated Creatinine Clearance 29.83 ml/min; Glucose 132 mg/dL (74-106); Potassium 3.8 mmol/L (3.5-5.1); Sodium Level 142 mmol/L (136-145)
[2024-09-21] MEDS: Aspirin E.C. 81 MG Tablet PO (10:00)
[2024-09-21] MEDS: Tamsulosin HCl 0.4 MG Capsule PO ×2 (10:00→19:59)
[2024-09-21] MEDS: APIXABAN 5 MG TABLET PO ×2 (10:00→19:59)
[2024-09-21] MEDS: Loratadine 10 MG Tablet PO (10:00)
[2024-09-21 10:28] LABS: Hemoglobin A1c 5.7 % (3.8-5.6)
[2024-09-21 12:04] VITALS: BP 132/64; PULSE 90; RESP 20; TEMP 36.9; O2SAT 95
--- NOTE | 2024-09-21 13:56 | CASEMGMT ---
KEYA VÁZQUEZ Assessment Face to Face with patient for initial transition planning/care coordination assessment. KEYA VÁZQUEZ introduced self and role at [facility], pt voices understanding. Pt is A&Ox1-2 and is resting comfortably in bed and is calm. Pt daughter (Amalia) at bedside and willing to help answer this KEYA VÁZQUEZ's questions. Care providers, pharmacy, and demographics verified. Admitting dx: Fall, Dehydration, ALEX LACE Strata: 3 PCP: Husam Deras Specialists: Denies Preferred Pharmacy: [facility] Insurance: JOSH LOCKETT Prescription Benefit: Yes LNOK: Isabela Burgos (Daughter), Amalia Yen (Daughter) Living Arrangements: Pt lives alone in a ground level apartment with 4 steps to enter with handrails ADLs/IADLs: Ind at baseline. However, pt fell at home and Amalia states that the pt was down for over 8 hours. MAS system information provided. Transportation: Self, daughters, friends. DME: Home oxygen through [employer]. Verified pt current order states 2L continuous. Pt has a concentrator, portable tanks, and a pulse ox. Pt also has canes, a FWW, Grab bars, shower chair, BSC, & BP Monitor. HHC/SNF: Denies History Pt?s goal: Return to PLOF Plan: TBD. Anticipate SNF vs home with HH. PT/OT pending. At this time, the pt and pt daughter state that the pt would be open to getting further therapy/rehab prior to the pt returning home. Care Management to follow therapy evaluations. Pt and pt daughter deny further questions or concerns at this time. Report given to TUBE BUILDING MACHINE OPERATOR CM. Velma Monroe RN, CM
--- NOTE | 2024-09-21 14:32 | CASEMGMT ---
SW was informed patient and family are interested in SNF. SW met with patient's daughter Amalia. SW introduced self and role at [facility]. SW asked if they were looking for nursing homes in [facility] or [facility] since they live there. Amalia said probably [place]. SW provided Amalia with a list of usp facility providers including quality and resource use data and consistent with patient?s preferred geographic region, medical needs, and insurance network were provided from the [employer] Guide. SW did give patient's daughter Amalia SNF's in [facility] and [facility]. SW explained SW would just need their top 3-4 preferences. SW's name and phone number is on both lists. SW did tell Amalia that if patient becomes alert and oriented and states he is not going to a chcf we cannot make him. Amalia verbalized understanding. Plan: At this time plan is SNF. Will need patient and family's choices. Marilyn Peña [employer]
--- NOTE | 2024-09-21 16:07 | CHAPLAIN ---
Type of Pastoral Visit _x__ Initial Visit ___ Follow-up Visit ___ On-call Visit ___ General Patient Visit ___ Spiritual Assessment ___ Family Conference ___ Bereavement ___ Rapid Response ___ Code Blue ___ Other (describe below) Pastoral Care Referral From ___ Patient _x__ Family ___ Nurse ___ Physician ___ Store Product Demonstrator ___ Ground Nuclear Weapons Assembly Officer ___ Other (describe below) Sacrament/Intervention _x__ Active listening ___ Anointing ___ Christian ___ Bereavement ___ Communion ___ Parris exploration ___ ___ Life review ___ Prayer ___ Reconciliation ___ Sacrament of Sick _x__ Supportive presence ___ Wedding ___ Other (describe below) Pastoral Comments patient and daughter are in the room; pt is awake and answers simple questions but does not engage in conversation; daughter explains that patient was found at home on the floor after possibly two days from a fall; pt is having difficulty with confusion and alertness now; pt does tell this model dresser that he is fine and in response to an offer of prayer he stated no, I'm fine; daughter recommended a future visit in hopes that patient will be able to converse more
[2024-09-21 17:33] VITALS: BP 110/96; PULSE 103; RESP 20; TEMP 36.9; O2SAT 95
--- NOTE | 2024-09-21 18:32 | PCM.PN.HOSP ---
Reason for Visit Reason for Visit: Diagnoses Encephalopathy, unspecified (09/20/24) Acute kidney failure, unspecified (09/20/24) Weakness (09/20/24) Unspecified fall, initial encounter (09/20/24) Subjective Subjective Patient was seen and examined today, he is slow to answer questions but he appears to answer them appropriately. Patient's daughter was in the room at the time my examination. Patient had been given antibiotics in the emergency room but these were not continued. Due to the patient's questionable chest [id number] versus infiltrate-I have elected to place the patient back on antibiotic coverage for pneumonia. Objective Data Objective Data Vital Signs: Vital Signs Temp Pulse Resp BP Pulse Ox O2 Del Method O2 Flow Rate 98.5 F 103 H 20 H 110/96 H 95 Room Air 94 09/21/24 17:33 09/21/24 17:33 09/21/24 17:33 09/21/24 17:33 09/21/24 17:33 09/21/24 17:33 09/20/24 17:38 Oxygen Flow Rate (L/min) 94 Oxygen Delivery Method Room Air Weight: 112.3 kg Body Mass Index (BMI) 33.5 Intake & Output: Intake and Output for Last 24 Hours 09/19/24 09/20/24 09/21/24 23:59 23:59 23:59 Intake Total 1367 / 2087 2080 / 2080 Output Total 550 / 550 Balance 1367 / 1912 1530 / 1530 Lab / Micro Data 09/22/24 06:29 09/22/24 06:29 Labs: Laboratory Results - last 24 hr 09/20/24 18:20: Urine Color Yellow, Urine Clarity Clear, Urine pH 5.0, Ur Specific Herrick 1.025, Urine Protein 30 H, Urine Glucose (UA) Normal, Urine Ketones 5 H, Urine Occult Blood 10 H, Urine Nitrite Negative, Urine Bilirubin 1 H, Urine Urobilinogen 1 H, Ur Leukocyte Esterase 25 H, Urine RBC 0-5 SEEN, Urine WBC 0-5 SEEN, Ur Squamous Epith Cells 0 SEEN, Urine Bacteria 0 SEEN, Urine Mucus 0 SEEN 09/20/24 18:33: WBC 11.5 H, RBC 3.41 L, Hgb 10.1 L, Hct 32.3 L, MCV 94.7 H, MCH 29.6, MCHC 31.3 L, RDW Std Deviation 51.4 H, RDW Coeff of [place] 14.9 H, Plt Count 173, MPV 11.5, Immature Gran % (Auto) 0.700, Neut % (Auto) 86.0 H, Lymph % (Auto) 4.3 L, [place] % (Auto) 8.9, Eos % (Auto) 0.0, Baso % (Auto) 0.1, Absolute Neuts (auto) 9.9 H, Absolute Lymphs (auto) 0.49 L, Nucleated RBC % 0, PT 18.4 H, INR 1.5, APTT 33.1, Sodium 152 H, Potassium 2.5 L*, Chloride 127 H*, Carbon Dioxide 19.0 L, Anion Gap 6, BUN 35 H, Creatinine 1.55 H, Estim Creat Clear Calc 47.26, Est GFR (MDRD) Af Amer 55 L, Est GFR (MDRD) Non-Af 46 L, BUN/Creatinine Ratio 22.6 H, Glucose 96, Lactic Acid 2.2 H*, Calcium 5.2 L*, Total Bilirubin 0.50, AST 27, ALT 15 L, Alkaline Phosphatase 39 L, Troponin I High Sens 97 H, Total Protein 4.2 L, Albumin 1.7 L, Globulin 2.5, Albumin/Globulin Ratio 0.7 L, Lipase < 10 L 09/20/24 18:35: Total Creatine Kinase 875 H, Vitamin B12 463 09/20/24 20:05: Magnesium 2.1 09/20/24 20:17: Sodium 148 H, Potassium 3.8, Chloride 115 H, Carbon Dioxide 26.0, Anion Gap 7, BUN 52 H, Creatinine 2.61 H, Estim Creat Clear Calc 28.07, Est GFR (MDRD) Af Amer 30 L, Est GFR (MDRD) Non-Af 25 L, BUN/Creatinine Ratio 19.9, Glucose 140 H, Calcium 8.3 L, Iron 17 L, TIBC 175 L, Iron Saturation 9.7 L, Ferritin 175, Total Bilirubin 0.80, AST 43 H, ALT 23, Alkaline Phosphatase 58, Total Protein 6.3 L, Albumin 2.7 L, Globulin 3.6, Albumin/Globulin Ratio 0.8 L, Folate 9.70, TSH 3.550, Free T4 1.16 09/20/24 20:22: Ionized Calcium 1.14 09/20/24 23:23: Lactic Acid 1.4 09/21/24 06:49: WBC 14.1 H, RBC 3.54 L, Hgb 10.4 L, Hct 32.8 L, MCV 92.7, MCH 29.4, MCHC 31.7 L, RDW Std Deviation 51.3 H, RDW Coeff of [place] 14.9 H, Plt Count 200, MPV 11.5, Sodium 142, Potassium 3.8, Chloride 111 H, Carbon Dioxide 24.0, Anion Gap 7, BUN 62 H, Creatinine 2.47 H, Estim Creat Clear Calc 29.83, Est GFR (MDRD) Af Amer 32 L, Est GFR (MDRD) Non-Af 27 L, BUN/Creatinine Ratio 25.1 H, Glucose 132 H, Hemoglobin A1c 5.7 H, Calcium 7.8 L, Total Creatine Kinase 1253 H Micro: Microbiology 09/20/24 23:10 Mucosa - Nasopharyngeal Respiratory Panel (PCR) - Final 09/20/24 18:20 Mucosa - Nose SARS-CoV-2, Influenza & RSV (PCR) - Final Radiography Diagnostic Testing: Radiology Impression Brain CT 09/20/24 17:53 IMPRESSION: Chronic involutional changes of the brain. Electronically Signed: Crow Reyes MD at 20:07 EST Reading Location ID and State: [address] [place] [address] , Service support , Cervical Spine CT 09/20/24 17:56 IMPRESSION: Multilevel degenerative changes, as described above. Electronically Signed: Crow Reyes MD at 20:16 EST Reading Location ID and State: [facility] / ID , Service support , Chest X-Ray 09/20/24 18:55 IMPRESSION: Lower lung atelectasis or infiltrates. Electronically Signed: Crow Reyes MD at 20:04 EST , Chest X-Ray 09/20/24 20:05 IMPRESSION: 1. Right greater than left basilar pulmonary opacities may be atelectasis or perhaps pneumonia. 2. Right subclavian venous catheter with tip overlying the superior cava atrial junction. No pneumothorax. 3. Status post CABG. Electronically Signed: Mehul Kohler DO at 21:34 EST , Rhythm Strip Rhythm Strip: Sinus Tach Rate: 105 Ectopy: None Physical Exam Const alert and no apparent distress Constitutional Narrative: Patient appears lethargic, he is able to carry on short conversations however General Appearance: cooperative, well kempt and well developed Orientation / Consciousness: awake, oriented to person and oriented to place HEENT normocephalic, head/scalp atraumatic and moist oral mucous membranes Eyes PERRL, EOMs intact bilaterally and conjunctivae normal Neck supple, no JVD, thyroid normal and no carotid bruits General: trachea midline Resp normal respiratory effort, no retractions, no use of accessory muscles and clear to auscultation bilaterally Auscultation: Negative for rales, rhonchi or wheezes Cardio regular rate, regular rhythm, S1 normal heart sound, S2 normal heart sound, no murmurs, no rub and no gallops GI normal to inspection, nondistended, normoactive bowel sounds, soft to palpation, non-tender and non-distended Extremity Extremity Narrative: Patient has a skin tear on his right lateral elbow area Skin Skin Narrative: Skin tears noted on the right lateral elbow area Neuro CN's II-XII intact bilaterally, moves all extremities, no focal motor deficits and no sensory deficits noted Sensorium / Orientation: awake, alert, oriented to person and oriented to place Speech: speech normal Psych affect normal Assessment & Plan Assessment/Plan (1) Encephalopathy acute: PLAN: Plan 1. Metabolic encephalopathy-this is most likely secondary to acute kidney injury and pneumonia-patient will continue to receive fluids and IV antibiotics, PT and OT are seeing patient, he will most likely need temporary placement in a [place] [facility] facility for [facility]hab services #2 community-acquired pneumonia-I have decided to place the patient on Levaquin, due to his kidney function he will need to be dosed every 48 hours. #3 acute kidney injury on a backdrop of chronic kidney disease stage III AA-patient will receive IV fluids, BMP will be rechecked tomorrow #4 debility secondary to multiple medical problems-PT and OT are seeing patient, he will need to be placed temporarily in a [place] [facility] facility for rehab services #5 hypothyroidism-continue Synthroid Total clinical time spent by myself addressing the patient's medical issues, reviewing all of his data, and collaborating with patient's care team: 35 minutes Charges/Coding Visit Charges Inpatient E&M: 28866 Subs Hosp L2
[2024-09-21] MEDS: 0.9 % NaCl (Sterile) Posiflush 10 mL IV (19:04)
[2024-09-21] MEDS: 0.9% Normal Saline (1000mL) 1,000 ML 75 ML IV (19:04)
[2024-09-21 19:57] VITALS: BP 102/60; PULSE 108; RESP 16; TEMP 37.2; O2SAT 96
[2024-09-21] MEDS: Gabapentin 400 MG Capsule PO (19:58)
[2024-09-21] MEDS: levoFLOXacin IV 500 MG/100 ML BAG 100 MG IV (20:02)
[2024-09-22] VITALS (8 sets, daily range): BP systolic 95–142; BP diastolic 46–96; PULSE 84–101; RESP 18–28; TEMP 36.1–37.2; O2SAT 89–97
[2024-09-22] MEDS: 0.9% Saline Lock 10 ML Syringe IV (04:12)
[2024-09-22] MEDS: Levothyroxine 100 MCG Tablet 200 MCG PO (04:12)
[2024-09-22] MEDS: Albuterol 2.5 MG/3 ML VIAL.NEB. INHALATION ×3 (07:04→20:00)
[2024-09-22] MEDS: Budesonide Respules 0.5 MG/2 ML AMPUL.NEB. INHALATION ×2 (07:04→20:00)
[2024-09-22 07:17] LABS: Absolute Lymphocyte Count 0.86 X10^3/uL (0.83-4.51); Basophil# 0.02 X10^3/uL; Basophil% 0.2 % (0-1); Eosinophil# 0.02 X10^3/uL; Eosinophils% 0.2 % (0-5); Hematocrit 35.3 % (40-54); Hemoglobin 10.8 g/dL (13.0-16.5); Lymphocyte # 0.86 X10^3/ul (0.83-4.51); Lymphocyte % 8.6 % (19-41); Mean Corp Hgb Conc 30.6 g/dL (32-36); Mean Corpuscular Volume 94.9 fL (80-94); Mean Platelet Vol. 11.6 fl (6.2-12.0); Monocyte# 1.09 X10^3/uL; Monocyte% 10.8 % (0-10); NRBC Flagged by Analyzer 0 % (0-5); Neutrophil # 7.99 X10^3/uL (2.7-7.7); Neutrophil % 79.5 % (47-70); Platelet Count 165 K/mm3 (150-450); RBC Distribution Width CV 14.8 % (11.6-14.6); RBC Distribution Width SD 51.8 fl (35.1-43.9); Red Blood Count 3.72 M/mm3 (4.6-6.2); White Blood Count 10.1 K/mm3 (4.4-11.0)
[2024-09-22 07:45] LABS: Anion Gap 6 (5-15); BUN 63 mg/dL (7-18); BUN/Creat Ratio 36.6 RATIO (10-20); Calcium,Total 7.9 mg/dL (8.5-10.1); Chloride 112 mmol/L (98-107); Creatinine, Serum 1.72 mg/dL (0.70-1.30); EST Glomerular Filtration Rate 41 mL/min (>60); Est Glom Filt Rate - Afr Amer 49 mL/min (>60); Estimated Creatinine Clearance 42.84 ml/min; Glucose 125 mg/dL (74-106); Potassium 4.3 mmol/L (3.5-5.1); Sodium Level 135 mmol/L (136-145)
[2024-09-22] MEDS: APIXABAN 5 MG TABLET PO ×2 (08:38→21:09)
[2024-09-22] MEDS: Aspirin E.C. 81 MG Tablet PO (08:38)
[2024-09-22] MEDS: Tamsulosin HCl 0.4 MG Capsule PO ×2 (08:39→21:09)
[2024-09-22] MEDS: 0.9% Normal Saline (1000mL) 1,000 ML 75 ML IV (09:54)
--- NOTE | 2024-09-22 12:58 | CASEMGMT ---
Social Work SW met with pt and pt daughter's Isabela and Amalia to discuss discharge plan. Isabela preferred SN[facility] providers are [facility] and [facility]. Referral sent to [facility]. SW will await determination of acceptance. Pt will need precert prior to admission. Plan: [facility], pending acceptance and precert KIKI Walton
--- NOTE | 2024-09-22 18:16 | PCM.PN.HOSP ---
Reason for Visit Reason for Visit: Diagnoses Encephalopathy, unspecified (09/20/24) Acute kidney failure, unspecified (09/20/24) Weakness (09/20/24) Unspecified fall, initial encounter (09/20/24) Subjective Subjective Patient was seen and examined today, his daughters were in the room at the time my examination, patient appears more alert, he is questioning why he cannot get up by himself to use the restroom. Patient's creatinine was improved today. Objective Data Objective Data Vital Signs: Vital Signs Temp Pulse Resp BP Pulse Ox O2 Del Method O2 Flow Rate 97.9 F 100 20 H 142/50 H 97 Room Air 94 09/22/24 13:45 09/22/24 13:45 09/22/24 13:45 09/22/24 13:45 09/22/24 13:45 09/22/24 13:45 09/20/24 17:38 Oxygen Flow Rate (L/min) 94 Oxygen Delivery Method Room Air Weight: 112.3 kg Body Mass Index (BMI) 33.5 Intake & Output: Intake and Output for Last 24 Hours 09/20/24 09/21/24 09/22/24 23:59 23:59 23:59 Intake Total 1367 / 2087 2255 / 2255 1575 / 1575 Output Total 675 / 675 400 / 400 Balance 1367 / 1912 1580 / 1580 1175 / 1175 Lab / Micro Data 09/22/24 06:29 09/22/24 06:29 Labs: Laboratory Results - last 24 hr 09/22/24 06:29: WBC 10.1, RBC 3.72 L, Hgb 10.8 L, Hct 35.3 L, MCV 94.9 H, MCH 29.0, MCHC 30.6 L, RDW Std Deviation 51.8 H, RDW Coeff of Ken[place] 14.8 H, Plt Count 165, MPV 11.6, Immature Gran % (Auto) 0.700, Neut % (Auto) 79.5 H, Lymph % (Auto) 8.6 L, [place] % (Auto) 10.8 H, Eos % (Auto) 0.2, Baso % (Auto) 0.2, Absolute Neuts (auto) 8.0 H, Absolute Lymphs (auto) 0.86, Nucleated RBC % 0, Sodium 135 L, Potassium 4.3, Chloride 112 H, Carbon Dioxide 17.0 L, Anion Gap 6, BUN 63 H, Creatinine 1.72 H, Estim Creat Clear Calc 42.84, Est GFR (MDRD) Af Amer 49 L, Est GFR (MDRD) Non-Af 41 L, BUN/Creatinine Ratio 36.6 H, Glucose 125 H, Calcium 7.9 L Micro: Microbiology 09/20/24 23:10 Mucosa - Nasopharyngeal Respiratory Panel (PCR) - Final 09/20/24 18:20 Mucosa - Nose SARS-CoV-2, Influenza & RSV (PCR) - Final Rhythm Strip Rhythm Strip: Sinus Tach Rate: 105 Ectopy: None Physical Exam Const alert and no apparent distress Constitutional Narrative: Patient exhibits some mild confusion General Appearance: well kempt and well developed Orientation / Consciousness: awake, oriented to person and oriented to place HEENT normocephalic, head/scalp atraumatic and moist oral mucous membranes Eyes PERRL, EOMs intact bilaterally and conjunctivae normal Neck supple, no JVD, thyroid normal and no carotid bruits General: trachea midline Resp normal respiratory effort, no retractions, no use of accessory muscles and clear to auscultation bilaterally Auscultation: Negative for rales, rhonchi or wheezes Cardio regular rate, regular rhythm, S1 normal heart sound, S2 normal heart sound, no murmurs, no rub and no gallops GI normal to inspection, nondistended, normoactive bowel sounds, soft to palpation, non-tender and non-distended Extremity no clubbing, cyanosis or edema Skin Skin Narrative: Patient has a skin tear in his right elbow Neuro CN's II-XII intact bilaterally, moves all extremities, no focal motor deficits and no sensory deficits noted Sensorium / Orientation: awake, alert, oriented to person and oriented to place Speech: speech normal Psych Psych Narrative: Patient exhibits some mild confusion Assessment & Plan Assessment/Plan (1) Encephalopathy acute: PLAN: Plan 1. Metabolic encephalopathy-this is most likely secondary to acute kidney injury and pneumonia-patient will continue to receive fluids and IV antibiotics, PT and OT are seeing patient, he will most likely need [facility] #2 community-acquired pneumonia-I have decided to place the patient on Levaquin, due to his kidney function he will need to be dosed every 48 hours. #3 acute kidney injury on a backdrop of chronic kidney disease stage III AA-patient will receive IV fluids, BMP will be rechecked tomorrow #4 debility secondary to multiple medical problems-PT and OT are seeing patient, he will need to be [facility] in a [facility] for [facility] services #5 hypothyroidism-continue Synthroid I do not feel the patient has rhabdomyolysis Total clinical time spent by myself addressing the patient's medical issues, reviewing all of his data, and collaborating with patient's care team: 35 minutes Charges/Coding Visit Charges Inpatient E&M: 80294 Subs Hosp L2
[2024-09-22] MEDS: Gabapentin 400 MG Capsule PO (21:09)
[2024-09-23] VITALS (7 sets, daily range): BP systolic 120–150; BP diastolic 48–63; PULSE 73–100; RESP 18–20; TEMP 36.5–37.4; O2SAT 90–95
[2024-09-23] MEDS: levoFLOXacin 500 MG Tablet PO (05:32)
[2024-09-23] MEDS: Levothyroxine 100 MCG Tablet 200 MCG PO (05:32)
[2024-09-23 06:02] LABS: Anion Gap 4 (5-15); BUN 55 mg/dL (7-18); BUN/Creat Ratio 40.1 RATIO (10-20); Calcium,Total 8.2 mg/dL (8.5-10.1); Chloride 108 mmol/L (98-107); Creatinine, Serum 1.37 mg/dL (0.70-1.30); EST Glomerular Filtration Rate 53 mL/min (>60); Est Glom Filt Rate - Afr Amer 64 mL/min (>60); Estimated Creatinine Clearance 53.79 ml/min; Glucose 158 mg/dL (74-106); Potassium 3.8 mmol/L (3.5-5.1); Sodium Level 138 mmol/L (136-145)
[2024-09-23] MEDS: Albuterol 2.5 MG/3 ML VIAL.NEB. INHALATION ×3 (07:06→19:30)
[2024-09-23] MEDS: Budesonide Respules 0.5 MG/2 ML AMPUL.NEB. INHALATION ×2 (07:06→19:30)
[2024-09-23] MEDS: 0.9% Saline Lock 10 ML Syringe IV ×2 (08:27→20:48)
[2024-09-23] MEDS: Ondansetron 4 MG/2 ML Vial IV (08:27)
[2024-09-23] MEDS: Loratadine 10 MG Tablet PO (09:46)
[2024-09-23] MEDS: Tamsulosin HCl 0.4 MG Capsule PO ×2 (09:46→20:48)
[2024-09-23] MEDS: APIXABAN 5 MG TABLET PO ×2 (09:46→20:48)
[2024-09-23] MEDS: Aspirin E.C. 81 MG Tablet PO (09:46)
--- NOTE | 2024-09-23 11:59 | PN.HOSP_ITS ---
Reason for Visit Reason for Visit: Diagnoses Encephalopathy, unspecified (09/20/24) Acute kidney failure, unspecified (09/20/24) Weakness (09/20/24) Unspecified fall, initial encounter (09/20/24) Subjective Subjective Patient was seen and examined today, his kidney functions have improved today. Patient is alert and does not appear to be in any distress. Objective Data Objective Data Vital Signs: Vital Signs Temp Pulse Resp BP Pulse Ox O2 Del Method O2 Flow Rate 97.7 F L 89 20 H 120/53 L 95 Room Air 2 09/23/24 08:50 09/23/24 08:50 09/23/24 08:50 09/23/24 08:50 09/23/24 08:50 09/23/24 09:00 09/22/24 21:15 Oxygen Flow Rate (L/min) 2 Oxygen Delivery Method Room Air Weight: 112.3 kg Body Mass Index (BMI) 33.5 Intake & Output: Intake and Output for Last 24 Hours 09/21/24 09/22/24 09/23/24 23:59 23:59 23:59 Intake Total 2255 / 2255 2825 / 2825 Output Total 675 / 675 900 / 900 300 / 300 Balance 1580 / 1580 1925 / 1925 -300 / -300 Lab / Micro Data 09/22/24 06:29 09/23/24 05:32 Labs: Laboratory Results - last 24 hr 09/23/24 05:32: Sodium 138, Potassium 3.8, Chloride 108 H, Carbon Dioxide 26.0, Anion Gap 4 L, BUN 55 H, Creatinine 1.37 H, Estim Creat Clear Calc 53.79, Est GFR (MDRD) Af Amer 64, Est GFR (MDRD) Non-Af 53 L, BUN/Creatinine Ratio 40.1 H, Glucose 158 H, Calcium 8.2 L Micro: Microbiology 09/20/24 20:00 Blood Culture (Wb) - Left Hand Blood Culture - Preliminary No growth in 48 hours. 09/20/24 20:05 Blood Culture (Wb) - Other Blood Culture - Preliminary No growth in 48 hours. 09/20/24 23:10 Mucosa - Nasopharyngeal Respiratory Panel (PCR) - Final 09/20/24 18:20 Mucosa - Nose SARS-CoV-2, Influenza & RSV (PCR) - Final Rhythm Strip Rhythm Strip: Sinus Tach Rate: 105 Ectopy: None Physical Exam Narrative alert and no apparent distress Constitutional Narrative: Patient exhibits some mild confusion General Appearance: well kempt and well developed Orientation / Consciousness: awake, oriented to person and oriented to place HEENT normocephalic, head/scalp atraumatic and moist oral mucous membranes Eyes PERRL, EOMs intact bilaterally and conjunctivae normal Neck supple, no JVD, thyroid normal and no carotid bruits General: trachea midline Resp normal respiratory effort, no retractions, no use of accessory muscles and clear to auscultation bilaterally Auscultation: Negative for rales, rhonchi or wheezes Cardio regular rate, regular rhythm, S1 normal heart sound, S2 normal heart sound, no murmurs, no rub and no gallops GI normal to inspection, nondistended, normoactive bowel sounds, soft to palpation, non-tender and non-distended Extremity no clubbing, cyanosis or edema Skin Skin Narrative: Patient has a skin tear in his right elbow Neuro CN's II-XII intact bilaterally, moves all extremities, no focal motor deficits and no sensory deficits noted Sensorium / Orientation: awake, alert, oriented to person and oriented to place Speech: speech normal Psych Psych Narrative: Patient exhibits some mild confusion Assessment & Plan Assessment/Plan (1) Encephalopathy acute: PLAN: Plan 1. Metabolic encephalopathy-patient is alert, he is oriented to self only, patient told nursing he thought he was at home. #2 community-acquired pneumonia-patient currently is on room air, he remains on Levaquin dosed every 48 hours #3 acute kidney injury on a backdrop of chronic kidney disease stage IIIa- patient's renal functions have improved #4 debility secondary to multiple medical problems-PT and OT are seeing patient, he will need to be placed temporarily in a [facility] facility for rehab services #5 hypothyroidism-continue Synthroid I do not feel the patient has rhabdomyolysis Total clinical time spent by myself addressing the patient's medical issues, reviewing all of his data, and collaborating with patient's care team: 35 minutes Charges/Coding Visit Charges Inpatient E&M: 59475 Subs Hosp L2
[2024-09-23] MEDS: Gabapentin 400 MG Capsule PO (20:48)
[2024-09-24] VITALS (40 sets, daily range): BP systolic 60–168; BP diastolic 20–95; PULSE 72–107; RESP 12–41; TEMP 35.6–37.1; O2SAT 88–100
[2024-09-24] MEDS: Levothyroxine 100 MCG Tablet 200 MCG PO (04:17)
[2024-09-24] MEDS: Budesonide Respules 0.5 MG/2 ML AMPUL.NEB. INHALATION ×2 (06:08→19:01)
[2024-09-24] MEDS: Albuterol 2.5 MG/3 ML VIAL.NEB. INHALATION ×3 (06:08→19:01)
--- NOTE | 2024-09-24 06:25 | RAD_ITS ---
STUDY: X-RAY CHEST REASON FOR EXAM: Male, 83 years old. Hypoxia. Shortness of breath and lethargy. TECHNIQUE: Single AP portable view of the chest. COMPARISON: Comparison is made with prior study dated September 20, 2024. FINDINGS: The previously seen right subclavian line has been removed. Persistent mild degree of increased markings at the lung bases suggestive of a basilar atelectasis and/or early infiltrates. Blunting of the left costophrenic angle. Sternal cerclage wires and vascular clips are present from a prior sternotomy and coronary artery bypass graft procedure (CABG). Borderline cardiomegaly. Normal mediastinum and vanesa. Normal visualized pulmonary arteries. There is atherosclerotic calcification of the aortic arch with tortuosity. Normal visualized thoracic spine. Normal visualized ribs, clavicles, and shoulders. There is no demonstrated abnormality of the visualized soft tissue structures of the upper abdomen. RAD/Chest 1 View (Portable) IMPRESSION: Mild degree of increased markings at the lung bases slightly more prominent at the left lung base suggestive of either atelectasis and/or early infiltrate. Blunting of the left costophrenic angle. Electronically Signed: Erick Hudson MD at 8:55 EST ,
--- NOTE | 2024-09-24 06:41 | RAD_ITS ---
STUDY: X-RAY - ABDOMEN/PELVIS REASON FOR EXAM: Male, 83 years old. Abd distention TECHNIQUE: Single AP view of the abdomen / pelvis. COMPARISON: None. FINDINGS: Increased markings are seen at both lung bases suggestive of bibasilar infiltrates and/or atelectasis. Gaseous distention of multiple small bowel loops as well as the colon and stomach. Findings are suggestive of an ileus pattern. Radiographic follow-up recommended. The visualized liver, spleen and kidneys are grossly normal in size and morphology. Normal soft tissue structures. There are diffuse degenerative changes of the visualized lumbar spine. Degenerative changes of both hip joints. RAD/Abdomen Single View (Portable) IMPRESSION: Gaseous distention of the colon as well as multiple small bowel loops suggestive of ileus gas pattern. Follow-up recommended. Electronically Signed: Erick Hudson MD at 13:00 EST ,
--- NOTE | 2024-09-24 06:42 | EKG12_ITS ---
Test Reason : SOB Blood Pressure : */* mmHG Vent. Rate : 108 BPM Atrial Rate : 108 BPM P-R Int : 188 ms QRS Dur : 92 ms QT Int : 342 ms P-R-T Axes : 17 35 153 degrees QTcB Int : 458 ms Sinus tachycardia with occasional Premature ventricular complexes Marked ST abnormality, possible lateral subendocardial injury Abnormal ECG When compared with ECG of 20-Sep-2024 17:56, Premature ventricular complexes are now Present ST elevation has replaced ST depression in Anterior leads T wave inversion less evident in Anterolateral leads Confirmed by DIRK GREENFIELD, DILIA ([id number]), editorial clerk CAHNTELLE HOBSON ([id number]) on 09/25/2024 5:58:44 AM Referred By: JEFE Confirmed By: DILIA CAVAZOS MD
--- NOTE | 2024-09-24 06:42 | EKG12_ITS ---
Test Reason : SOB Blood Pressure : */* mmHG Vent. Rate : 108 BPM Atrial Rate : 108 BPM P-R Int : 188 ms QRS Dur : 92 ms QT Int : 342 ms P-R-T Axes : 17 35 153 degrees QTcB Int : 458 ms Sinus tachycardia with occasional Premature ventricular complexes Abnormal ECG When compared with ECG of 24-Sep-2024 06:42, MANUAL COMPARISON REQUIRED DATA IS UNCONFIRMED Confirmed by DIRK GREENFIELD, DILIA ([id number]), story editor CHANTELLE HOBSON ([id number]) on 09/25/2024 5:59:02 AM Referred By: JEFE Confirmed By: DILIA CAVAZOS MD
--- NOTE | 2024-09-24 06:47 | NURSING ---
MD at bedside assessing patient, bp low, diaphoretic. denies any pain but is sob. MD ordered labs kub due to abdomen being distended.
[2024-09-24] MEDS: 0.9% Normal Saline (500mL Bag) 500 ML 999 ML IV (06:55)
[2024-09-24 06:57] LABS: Bedside Glucose 179 mg/dL (74-106)
[2024-09-24 07:06] LABS: Hematocrit 27.4 % (40-54); Hemoglobin 8.7 g/dL (13.0-16.5); Mean Corp Hgb Conc 31.8 g/dL (32-36); Mean Corpuscular Hgb 29.8 pg (27.0-32.0); Mean Corpuscular Volume 93.8 fL (80-94); Platelet Count 286 K/mm3 (150-450); RBC Distribution Width CV 14.9 % (11.6-14.6); RBC Distribution Width SD 51.4 fl (35.1-43.9); Red Blood Count 2.92 M/mm3 (4.6-6.2); White Blood Count 12.1 K/mm3 (4.4-11.0)
--- NOTE | 2024-09-24 07:08 | NURSING ---
Spoke to daughter Isabela to update about patient's care
[2024-09-24 08:01] LABS: Anion Gap 7 (5-15); BUN 67 mg/dL (7-18); Calcium,Total 8.3 mg/dL (8.5-10.1); Chloride 108 mmol/L (98-107); Creatinine, Serum 1.81 mg/dL (0.70-1.30); EST Glomerular Filtration Rate 38 mL/min (>60); Est Glom Filt Rate - Afr Amer 46 mL/min (>60); Estimated Creatinine Clearance 40.71 ml/min; Glucose 210 mg/dL (74-106); Potassium 4.8 mmol/L (3.5-5.1); Sodium Level 138 mmol/L (136-145); Troponin-I HS 70 pg/mL (3.0-78.0)
[2024-09-24 08:06] LABS: Lactic Acid 4.1 mmol/L (0.4-1.9)
[2024-09-24] MEDS: 0.9% Normal Saline (1000mL) 1,000 ML 100 ML IV ×2 (08:42→19:00)
--- NOTE | 2024-09-24 09:02 | NURSING ---
Report called to [facility] at 0902.
--- NOTE | 2024-09-24 09:31 | CASEMGMT ---
Discharge Planning [facility] declined referral. Amalia Hernandez DC Planning asst.
[2024-09-24 09:38] LABS: Base Excess -4 mmol/L (-2 to +2); Bicarbonate 20.3 mmol/L (22-26); Blood Gas Specimen Type ART; Mode BiLevel; O2 Delivery Device BiPAP; PEEP 8; PO2 236 mmHG (75-100); RR 12; SITE R Radial; SO2 100 % (95-99); Total Carbon Dioxide 21 mmol/L; pCO2 31.5 mmHg (35-45); pH 7.42 (7.35-7.45)
--- NOTE | 2024-09-24 09:39 | CPS ---
Called to patient room at 0838, arrived in room saw patient obtunded and responding minimally with SOB. Lino Ox read 86% on 2L. Placed patient on Bipap prior to Dr. Ramirez arriving to check on patient due to status mentioned above. Patient was also hypotensive at this time. Assisted with transfer to ICU.
--- NOTE | 2024-09-24 09:43 | ECHOL_ITS ---
Reason For Study: DYSPNEA Procedure This was a limited 2D transthoracic echocardiogram. The study was technically difficult. Patient confused and uncooperative. Exam performed portable in ICU/CCU. Left Ventricle Normal LV size. The left ventricular ejection fraction is 55 %. No regional wall motion abnormalities noted. Right Ventricle Normal RV size. Normal systolic function. Atria The left atrium is not well visualized. The right atrium is not well visualized. Mitral Valve Mitral valve not well visualized. Tricuspid Valve The tricuspid valve is not well visualized. Great Vessels Normal aortic root. Pericardium/Pleural No pericardial effusion. MMode/2D Measurements & Calculations LVIDd: 4.2 cm IVSd: 1.6 cm LAV(MOD-sp2): 20.1 ml LVIDs: 2.6 cm LVPWd: 1.4 cm FS: 38.4 % SV(MOD-sp4): 32.7 ml SV(sp4-el): 32.9 ml LVAd ap4: 20.0 cm2 LVLd ap4: 6.8 cm SI(MOD-sp4): 14.0 ml/m2 EDV(MOD-sp4): 51.9 ml EDV(sp4-el): 49.8 ml LVAs ap4: 10.7 cm2 LVLs ap4: 5.7 cm ESV(MOD-sp4): 19.1 ml ESV(sp4-el): 16.9 ml EF(MOD-sp4): 63.1 % EF(sp4-el): 66.0 % LA dimension(2D): 3.8 cm ECHO/Echo, Limited Study Interpretation Summary The left ventricular ejection fraction is 55 %. Normal LV size. The study was technically difficult. The study was technically limited. Ordering Physician: Theo Ramirez Referring Physician: KAILA SINGLETON Performed By: Daxa Ma RCS
[2024-09-24 10:04] LABS: Absolute Lymphocyte Count 0.49 X10^3/uL (0.83-4.51); Absolute Neutrophil Count 9.2 X10^3/uL (2.0-7.7); Basophil# 0.01 X10^3/uL; Basophil% 0.1 % (0-1); Hematocrit 22.3 % (40-54); Hemoglobin 7.1 g/dL (13.0-16.5); Lymphocyte # 0.49 X10^3/ul (0.83-4.51); Lymphocyte % 4.4 % (19-41); Mean Corp Hgb Conc 31.8 g/dL (32-36); Mean Corpuscular Hgb 30.2 pg (27.0-32.0); Mean Corpuscular Volume 94.9 fL (80-94); Mean Platelet Vol. 11.5 fl (6.2-12.0); Monocyte# 1.16 X10^3/uL; Monocyte% 10.5 % (0-10); NRBC Flagged by Analyzer 0 % (0-5); Neutrophil # 9.18 X10^3/uL (2.7-7.7); Neutrophil % 83.2 % (47-70); POSITIVE DIFFERENTIAL YES; Platelet Count 218 K/mm3 (150-450); RBC Distribution Width SD 51.8 fl (35.1-43.9); Red Blood Count 2.35 M/mm3 (4.6-6.2)
[2024-09-24] MEDS: 0.9% Normal Saline (1000mL) 1,000 ML 999 ML IV ×2 (10:04→12:11)
[2024-09-24] MEDS: Vancomycin HCl 2,000 MG in 0.9% Normal Saline (500mL Bag) 500 ML 250 MG IV (10:10)
--- NOTE | 2024-09-24 10:34 | PCM.RX.CS ---
Consult Antibiotic Management Pharmacy has been consulted to manage selected antibiotic: Vancomycin Type of Intervention Type of Consult: start Suspected Infection Suspected Infection: Pneumonia Labs Labs: Sodium 138 mmol/L (136-145) 09/24/24 07:00 Potassium 4.8 mmol/L (3.5-5.1) 09/24/24 07:00 Chloride 108 mmol/L (98-107) H 09/24/24 07:00 Carbon Dioxide 23.0 mmol/L (21.0-32.0) 09/24/24 07:00 Anion Gap 7 (5-15) 09/24/24 07:00 BUN 67 mg/dL (7-18) H 09/24/24 07:00 Creatinine 1.81 mg/dL (0.70-1.30) H 09/24/24 07:00 Est GFR (MDRD) Af Amer 46 mL/min (>60) L 09/24/24 07:00 Est GFR (MDRD) Non-Af 38 mL/min (>60) L 09/24/24 07:00 BUN/Creatinine Ratio 37.0 RATIO (10-20) H 09/24/24 07:00 Glucose 210 mg/dL (74-106) H 09/24/24 07:00 Microbiology Microbiology: Microbiology 09/20/24 20:00 Blood Culture (Wb) - Left Hand Blood Culture - Preliminary No growth in 48 hours. 09/20/24 20:05 Blood Culture (Wb) - Other Blood Culture - Preliminary No growth in 48 hours. 09/20/24 23:10 Mucosa - Nasopharyngeal Respiratory Panel (PCR) - Final 09/20/24 18:20 Mucosa - Nose SARS-CoV-2, Influenza & RSV (PCR) - Final Pharmacy Plan for Drug Dosing Pharmacy Plan for Drug Dosing: [facility] IV VANCOMYCIN Consulting Physician: Ashley Indication: pneumonia Goal Trough: 15-20 mg/dL SrCr: 1.81 mg/dL, CrCl 40.7 mg/dL CrCl: 40.7 mL/min Comments: loading dose of 2000mg given 09/24 @ 1010 Vancomycin Dose: Will start 1000mg Q12 @ 2200 and get a level prior to the 4th total dose per policy. Pending Level: 09/25/24 @ 2130 Pharmacy Service will continue to monitor and adjust dosing as required.
[2024-09-24 11:02] LABS: Reflex Lactate? Y
--- NOTE | 2024-09-24 11:06 | EX.PCM.CONCC ---
Assessment & Plan Assessment/Plan (1) Hypotension: PLAN: Plan RECOMMENDATIONS: 1. Supplemental IV fluid hydration as ordered. 2. Transfuse 1 unit of packed red blood cells as ordered. Check H&H posttransfusion. 3. Hold Eliquis for now. 4. Continue twice daily PPI therapy. 5. If hemoglobin continues to drop, consider consultation to gastroenterology. 6. Place PICC line, given lack of peripheral IV access. IMPRESSIONS: 1. Hypotension Appears to be secondary to intravascular volume depletion. The patient's hemodynamic status is improving with IV fluids. However, the patient's hemoglobin has also dropped to 7.1 g/dL. I do suspect that this is likely dilutional in nature. Nevertheless, it is reasonable to hold his Eliquis for now and transfuse the patient 1 unit of packed red blood cells. No definitive source of infection has been identified during this hospitalization. Therefore, unclear need for ongoing antimicrobial therapy. 2. Acute on chronic kidney disease Likely prerenal in etiology. Creatinine increased from yesterday to today. Accordingly, additional IV fluids were administered. Continue to monitor urine output for now. No current indication for renal replacement therapy. 3. Metabolic encephalopathy Stable at this time. CT head demonstrated no acute findings. ABG was obtained and demonstrated no evidence of CO2 retention. TSH was within normal limits. 4. History of obesity/hypothyroidism/generalized debility/history of DVT/history of carotid disease/hypertension/hyperlipidemia Complicates care, management, recovery and prognosis. Continue to hold home lisinopril and Lasix. Given the patient's progressive anemia, agree with holding Eliquis. This note was generated with [employer] dictation software. It may contain incorrect words, spelling, and punctuation that were not noted in checking the note before signing. HPI Consult Data Date of Consult: 09/24/24 HPI Narrative Reason for Consultation: Hypotension HPI Narrative: The patient is an 83-year-old male, with a history as outlined below, who presented to the emergency department via EMS on September 20 after being found down at home in a confused state. He has a known history of carotid artery disease status post CEA in July 2024. In addition, it appears that the patient was diagnosed with a DVT in September 2023. On presentation to the emergency department, the patient was documented to be afebrile but was mildly tachycardic and tachypneic, but otherwise hemodynamically stable. Initial laboratory evaluation revealed a white blood cell count of 11,000. Hemoglobin was noted to be 10.1 g/dL. Platelet count was within normal limits. INR was normal at 1.5. Chemistry profile was notable for a sodium of 152, potassium of 2.5, chloride of 127, bicarbonate of 19 and creatinine of 1.5. Lactate was elevated at 2.2 with a calcium of 5.2. CK was increased at 875. CT head revealed chronic involutional changes of the brain. CT C-spine revealed multilevel degenerative changes. Chest x-ray revealed basilar atelectasis. Due to inadequate IV access, a triple-lumen catheter was placed in the emergency department. The patient was ordered to receive supplemental IV fluid hydration and was subsequently admitted to the hospital for further management. The patient's hospital course, to date, has included treatment for potential pneumonia with antimicrobial therapy. The patient was apparently working with PT and OT. However, on the morning of September 24, the patient became acutely hypotensive and was transferred to the medical intensive care unit. The patient continues to have a normal white blood cell count, but his hemoglobin has dropped to 7.1 g/dL. I do suspect that this is likely delusional in nature, given the amount of fluid that he has received thus far. An arterial blood gas was obtained which demonstrated a pH of 7.42 with a pCO2 of 31 and pO2 of 236. The patient's creatinine is also increased from 1.37 yesterday to 1.81 today. It does appear that the patient is on Eliquis at his baseline. He was placed on twice daily PPI therapy. Lactate was also elevated at 4.1. After my initial evaluation of the patient, I did perform bedside ultrasound of his bilateral internal jugular veins to assess for possible central line placement. Unfortunately, both internal jugular veins were slitlike in appearance and profoundly collapsible with respiratory variation. This all suggested that the patient was still intravascular volume depleted. The patient did have an echo from September 2023 which demonstrated stage I diastolic dysfunction along with a severely dilated RV and moderate severe global RV systolic dysfunction. [facility] Medical History Lives alone Poor historian Uses wheelchair Ambulates with cane Bladder disease High cholesterol Injury of head and neck Syncope Difficulty swallowing Shortness of breath on exertion On home oxygen therapy Leg cramps History of edema Chronic obstructive pulmonary disease (COPD) DVT of lower extremity (deep venous thrombosis) Wears hearing aid Wears glasses Wears partial dentures Thyroid disease Arthritis Back pain Former smoker Leg cramps History of stress test Cardiology follow-up encounter History of irregular heartbeat BPH (benign prostatic hyperplasia) Coronary artery disease Home Medications ?Medication ?Instructions ?Recorded ?Last Taken ?Type atenolol 25 mg tablet 25 mg PO DAILY blood pressure 10/10/17 07/22/24 History cetirizine 10 mg tablet 10 mg PO DAILY allergies 11/03/21 07/08/24 History psyllium husk 0.4 gram capsule 0.4 g PO DAILY fiber 12/24/21 Unknown History (Daily Fiber) tamsulosin 0.4 mg capsule 0.4 mg PO BID prostate 12/24/21 07/22/24 21:00 History rosuvastatin 10 mg tablet 10 mg PO QHS cholesterol 09/14/23 07/22/24 21:27 History apixaban 5 mg tablet (Eliquis) 5 mg PO BID pvd 60 days #120 tabs 09/17/23 07/17/24 Rx lisinopril 20 mg tablet 20 mg PO BID bp 10/21/23 07/22/24 History nitroglycerin 0.4 mg sublingual 0.4 mg sublingual Q5M PRN chest 01/25/24 Unknown History tablet pain aspirin 81 mg tablet,delayed 81 mg PO DAILY supplement 07/10/24 07/22/24 History release (Adult Low Dose Aspirin) fluticasone 250 mcg-salmeterol 50 1 ea inhalation BID asthma 07/10/24 07/22/24 15:25 History mcg/dose blistr powdr for inhalation naproxen sodium 220 mg tablet 220 mg PO Q12H PRN 08/07/24 Unknown History (Aleve) levothyroxine 150 mcg tablet 150 mcg PO DAILY Thyroid 09/20/24 Unknown History albuterol sulfate 90 mcg/actuation inhalation SOB 09/21/24 Unknown History aerosol inhaler furosemide 20 mg tablet 40 mg PO DAILY Water Pill 09/21/24 Unknown History gabapentin 400 mg capsule 400 mg PO TID nerve pain 09/21/24 Unknown History Allergy/AdvReac Type Severity Reaction Status Date / Time atorvastatin (From Lipitor) AdvReac Intermediate Other Verified 11/26/24 08:41 Family History Other Cancer Surgical History S/P carotid endarterectomy History of cholecystectomy History of cardiac catheterization Hx of shoulder surgery History of coronary artery bypass graft Social History household members: none housing: apartment pets and animals: Yes Smoking Status: Former smoker substance use type: does not use ROS ROS Narrative 10 systems were reviewed with pertinent positives as noted in HPI above. Physical Exam Const alert and no apparent distress General Appearance: cooperative HEENT normocephalic and head/scalp atraumatic Eyes EOMs intact bilaterally, conjunctivae normal and no scleral icterus Neck supple General: trachea midline Chest inspection of chest normal Resp normal respiratory effort Auscultation: Negative for rales, rhonchi or wheezes Cardio regular rate and regular rhythm GI normal to inspection, nondistended, normoactive bowel sounds Extremity no clubbing, cyanosis or edema Skin no rashes or lesions noted Neuro CN's II-XII intact bilaterally, moves all extremities and no focal motor deficits Psych Mood & Affect: flat affect Lab / Micro Data 09/24/24 09:40 09/24/24 07:00 Labs: Laboratory Results - last 24 hr 09/24/24 06:30: POC Glucose 179 H 09/24/24 07:00: WBC 12.1 H, RBC 2.92 L, Hgb 8.7 L, Hct 27.4 L, MCV 93.8, MCH 29.8, MCHC 31.8 L, RDW Std Deviation 51.4 H, RDW Coeff of [place] 14.9 H, Plt Count 286, MPV 11.0, Sodium 138, Potassium 4.8, Chloride 108 H, Carbon Dioxide 23.0, Anion Gap 7, BUN 67 H, Creatinine 1.81 H, Estim Creat Clear Calc 40.71, Est GFR (MDRD) Af Amer 46 L, Est GFR (MDRD) Non-Af 38 L, BUN/Creatinine Ratio 37.0 H, Glucose 210 H, Lactic Acid 4.1 H*, Calcium 8.3 L, Troponin I High Sens 70 09/24/24 09:40: WBC 11.0, RBC 2.35 L, Hgb 7.1 L, Hct 22.3 L, MCV 94.9 H, MCH 30.2, MCHC 31.8 L, RDW Std Deviation 51.8 H, RDW Coeff of [place] 15.0 H, Plt Count 218, MPV 11.5, Immature Gran % (Auto) 1.800 H, Neut % (Auto) 83.2 H, Lymph % (Auto) 4.4 L, [place] % (Auto) 10.5 H, Eos % (Auto) 0.0, Baso % (Auto) 0.1, Absolute Neuts (auto) 9.2 H, Absolute Lymphs (auto) 0.49 L, Nucleated RBC % 0 Micro: Microbiology 09/20/24 20:00 Blood Culture (Wb) - Left Hand Blood Culture - Preliminary No growth in 48 hours. 09/20/24 20:05 Blood Culture (Wb) - Other Blood Culture - Preliminary No growth in 48 hours. ABG Data ABG results: ABG 09/24/24 09:33 Specimen Type ART Sample Site R Radial pH 7.42 Bicarbonate Actual 20.3 L Total CO2 21 Base Excess -4 L O2 Saturation 100 H O2 % 80.0 ABG pCO2 31.5 L ABG pO2 236 H [place] Test N/A Respiration Rate 12 O2 Delivery Device BiPAP Vent Mode BiLevel POC PEEP 8 Rhythm Strip Rhythm Strip: Sinus Tach Rate: 105 Ectopy: None Imaging Radiology Impression Chest X-Ray 09/24/24 06:25 IMPRESSION: Mild degree of increased markings at the lung bases slightly more prominent at the left lung base suggestive of either atelectasis and/or early infiltrate. Blunting of the left costophrenic angle. Electronically Signed: Erick Hudson MD at 8:55 EST , Charges/Coding Visit Charges Inpatient E&M: 63259 Init Hosp L3
[2024-09-24 11:57] LABS: Squamous Epithelial Cells - UA 0 SEEN /hpf (0-5)
[2024-09-24 12:04] LABS: Color, Urine Yellow (Yellow); Glucose, Dipstick Normal (Normal); Ketone-Dipstick Negative (Negative); Leukocyte Esterase-Dipstick 500 /ul (Negative); Nitrite-Dipstick Negative (Negative); Occult Blood-Urine 50 /ul (Negative); Protein-Dipstick 30 mg/dl (Negative); Urine Clarity Sl. Cloudy (Clear); Urine Urobilinogen 1 mg/dl (Normal)
[2024-09-24 12:06] LABS: Urine Bilirubin Dipstick 1 mg/dL (Negative)
[2024-09-24 12:17] LABS: Red Blood Cells-Urine 0-5 SEEN /hpf (0-5); White Blood Cells 10-25 SEEN /hpf (0-5)
[2024-09-24 12:18] LABS: Mucous, Urine 2+ /hpf (<or=2+)
[2024-09-24 12:19] LABS: Hyaline Cast >100 SEEN /lpf (0-5)
[2024-09-24 12:21] LABS: Bacteria 1+ /hpf (None Seen); Fine Granular Cast- Urine 5-10 SEEN /lpf (0-5); White Cell Cast 0-5 SEEN /lpf (None Seen)
[2024-09-24] MEDS: Meropenem 1 GM in 0.9% Normal Saline (100mL MB+) 100 ML IV ×2 (13:43→22:23)
[2024-09-24] MEDS: Pantoprazole Sodium 40 MG in 0.9% Normal Saline (100mL MB+) 100 ML 330 MG IV ×2 (13:45→20:49)
--- NOTE | 2024-09-24 14:42 | CHAPLAIN ---
Type of Pastoral Visit ___ Initial Visit ___ Follow-up Visit ___ On-call Visit ___ General Patient Visit ___ Spiritual Assessment ___ Family Conference ___ Bereavement ___ Rapid Response ___ Code Blue ___ Other (describe below) Pastoral Care Referral From ___ Patient ___ Family ___ Nurse ___ Physician ___ Knurling Machine Tender ___ Quality Intern ___ Other (describe below) Sacrament/Intervention ___ Active listening ___ Anointing ___ Religious ___ Bereavement ___ Communion ___ Parris exploration ___ ___ Life review ___ Prayer ___ Reconciliation ___ Sacrament of Sick ___ Supportive presence ___ Wedding ___ Other (describe below) Pastoral Comments patient was having a sterile process being done in the room; RN reports that pt is confused; will attempt a visit again tomorrow
[2024-09-24 15:01] LABS: Lactic Acid 1.1 mmol/L (0.4-1.9)
[2024-09-24 15:04] LABS: AST(SGOT) 89 U/L (15-37); Alanine Aminotransfer ALT/SGPT 54 U/L (16-61); Albumin, Serum 1.7 g/dL (3.2-5.0); Alkaline Phosphatase 47 U/L (45-117); Globulin 3.3 g/dL (2.2-4.2)
--- NOTE | 2024-09-24 17:43 | PCM.PN.HOSP ---
Reason for Visit Reason for Visit: Diagnoses Encephalopathy, unspecified (09/20/24) Hypotension, unspecified (09/20/24) Acute kidney failure, unspecified (09/20/24) Weakness (09/20/24) Unspecified fall, initial encounter (09/20/24) Subjective Subjective Patient was seen and examined today, earlier today patient had episode of hypotension which was severe, he was transferred to the ICU and I had critical care see the patient. Critical care felt that the patient was dehydrated and fluids were provided with a good response. Patient was placed on broad antibiotic coverage for possible sepsis, chest x-ray obtained this morning however did not show a definite area of significant infiltrate. Patient's initial white count this morning was slightly elevated at 12.1 with a hemoglobin of 8.7, CBC was repeated later on this morning and the white count was normal and the patient's hemoglobin had dropped to 7.1. Patient was given 1 unit of packed red blood cells and he was placed on a PPI. Patient's Eliquis was stopped. KUB obtained this morning showed gaseous distention of the colon as well as multiple small bowel loops suggestive of an ileus gas pattern. Urinalysis obtained showed 10-25 white cells and +1 bacteria. Objective Data Objective Data Vital Signs: Vital Signs Temp Pulse Resp BP Pulse Ox O2 Del Method O2 Flow Rate 96.4 F L 91 22 H 116/61 92 Room Air 4 09/24/24 17:40 09/24/24 17:40 09/24/24 17:40 09/24/24 17:40 09/24/24 17:40 09/24/24 17:40 09/24/24 09:50 FiO2 35 09/24/24 09:45 Oxygen Flow Rate (L/min) 4 Oxygen Delivery Method Room Air Weight: 112.3 kg Body Mass Index (BMI) 33.5 Intake & Output: Intake and Output for Last 24 Hours 09/22/24 09/23/24 09/24/24 23:59 23:59 23:59 Intake Total 2825 / 2825 800 / 800 3670 / 3670 Output Total 900 / 900 925 / 925 300 / 300 Balance 1925 / 1925 -125 / -125 3370 / 3370 Lab / Micro Data 09/24/24 09:40 09/24/24 07:00 Labs: Laboratory Results - last 24 hr 09/24/24 06:30: POC Glucose 179 H 09/24/24 07:00: WBC 12.1 H, RBC 2.92 L, Hgb 8.7 L, Hct 27.4 L, MCV 93.8, MCH 29.8, MCHC 31.8 L, RDW Std Deviation 51.4 H, RDW Coeff of [place] 14.9 H, Plt Count 286, MPV 11.0, Sodium 138, Potassium 4.8, Chloride 108 H, Carbon Dioxide 23.0, Anion Gap 7, BUN 67 H, Creatinine 1.81 H, Estim Creat Clear Calc 40.71, Est GFR (MDRD) Af Amer 46 L, Est GFR (MDRD) Non-Af 38 L, BUN/Creatinine Ratio 37.0 H, Glucose 210 H, Lactic Acid 4.1 H*, Calcium 8.3 L, Troponin I High Sens 70 09/24/24 09:40: WBC 11.0, RBC 2.35 L, Hgb 7.1 L, Hct 22.3 L, MCV 94.9 H, MCH 30.2, MCHC 31.8 L, RDW Std Deviation 51.8 H, RDW Coeff of [place] 15.0 H, Plt Count 218, MPV 11.5, Immature Gran % (Auto) 1.800 H, Neut % (Auto) 83.2 H, Lymph % (Auto) 4.4 L, [place] % (Auto) 10.5 H, Eos % (Auto) 0.0, Baso % (Auto) 0.1, Absolute Neuts (auto) 9.2 H, Absolute Lymphs (auto) 0.49 L, Nucleated RBC % 0 09/24/24 11:50: Urine Color Yellow 09/24/24 11:50: Urine Color Cancelled, Urine Clarity Sl. Cloudy 09/24/24 11:50: Urine Clarity Cancelled, Urine pH 5.0 09/24/24 11:50: Urine pH Cancelled, Ur Specific [place] 1.020 09/24/24 11:50: Ur Specific [place] Cancelled, U Specif Grav (Refrac) Cancelled, Urine Protein 30 H 09/24/24 11:50: Urine Protein Cancelled, Urine Glucose (UA) Normal 09/24/24 11:50: Urine Glucose (UA) Cancelled, Urine Ketones Negative 09/24/24 11:50: Urine Ketones Cancelled, Urine Occult Blood 50 H 09/24/24 11:50: Urine Occult Blood Cancelled, Urine Nitrite Negative 09/24/24 11:50: Urine Nitrite Cancelled, Urine Bilirubin 1 H 09/24/24 11:50: Urine Bilirubin Cancelled, Urine Urobilinogen 1 H 09/24/24 11:50: Urine Urobilinogen Cancelled, Ur Leukocyte Esterase 500 H 09/24/24 11:50: Ur Leukocyte Esterase Cancelled, Urine RBC 0-5 SEEN 09/24/24 11:50: Urine RBC Cancelled, Urine WBC 10-25 SEEN 09/24/24 11:50: Urine WBC Cancelled, Ur Squamous Epith Cells 0 SEEN 09/24/24 11:50: Ur Squamous Epith Cells Cancelled, Ur Transition Epith Cell Cancelled, Ur Renal Epithelial Cell Cancelled, Calcium Oxalate Crystal Cancelled, Uric Acid Crystals Cancelled, Triple Phos Crystals Cancelled, Other Crystals Cancelled, Amorphous Sediment Cancelled, Urine Bacteria 1+ 09/24/24 11:50: Urine Bacteria Cancelled, Hyaline Casts >100 SEEN 09/24/24 11:50: Hyaline Casts Cancelled, Fine Granular Casts 5-10 SEEN 09/24/24 11:50: Fine Granular Casts Cancelled, Coarse Granular Casts Cancelled, Waxy Casts Cancelled, RBC Casts Cancelled, WBC Casts 0-5 SEEN 09/24/24 11:50: WBC Casts Cancelled, Urine Mucus 2+ 09/24/24 11:50: Urine Mucus Cancelled, Urine Trichomonas Cancelled, Urine Yeast Cancelled 09/24/24 14:00: Lactic Acid 1.1, Total Bilirubin 0.70, Direct Bilirubin 0.20, AST 89 H, ALT 54, Alkaline Phosphatase 47, Total Protein 5.0 L, Albumin 1.7 L, Globulin 3.3, Blood Type A NEGATIVE, Antibody Screen NEGATIVE, Crossmatch See Detail Micro: Microbiology 09/20/24 20:00 Blood Culture (Wb) - Left Hand Blood Culture - Preliminary No growth in 48 hours. 09/20/24 20:05 Blood Culture (Wb) - Other Blood Culture - Preliminary No growth in 48 hours. 09/20/24 23:10 Mucosa - Nasopharyngeal Respiratory Panel (PCR) - Final 09/20/24 18:20 Mucosa - Nose SARS-CoV-2, Influenza & RSV (PCR) - Final ABG Data ABG results: ABG 09/24/24 09:33 Specimen Type ART Sample Site R Radial pH 7.42 Bicarbonate Actual 20.3 L Total CO2 21 Base Excess -4 L O2 Saturation 100 H O2 % 80.0 ABG pCO2 31.5 L ABG pO2 236 H [place] Test N/A Respiration Rate 12 O2 Delivery Device BiPAP Vent Mode BiLevel POC PEEP 8 Radiography Diagnostic Testing: Radiology Impression Chest X-Ray 09/24/24 06:25 IMPRESSION: Mild degree of increased markings at the lung bases slightly more prominent at the left lung base suggestive of either atelectasis and/or early infiltrate. Blunting of the left costophrenic angle. Electronically Signed: Erick Hudson MD at 8:55 EST , KUB X-Ray 09/24/24 06:41 IMPRESSION: Gaseous distention of the colon as well as multiple small bowel loops suggestive of ileus gas pattern. Follow-up recommended. Electronically Signed: Erick Hudson MD at 13:00 EST , Echocardiogram 09/24/24 09:43 Interpretation Summary The left ventricular ejection fraction is 55 %. Normal LV size. The study was technically difficult. The study was technically limited. Ordering Physician: Theo Ramirez Referring Physician: KAILA SINGLETON Performed By: Daxa Ma RCS Rhythm Strip Rhythm Strip: Sinus Tach Rate: 105 Ectopy: None Physical Exam Const alert Constitutional Narrative: Patient was minimally responsive, patient appeared unwell General Appearance: well kempt and well developed Orientation / Consciousness: awake HEENT normocephalic, head/scalp atraumatic and moist oral mucous membranes Eyes PERRL, EOMs intact bilaterally and conjunctivae normal Neck supple, no JVD, thyroid normal and no carotid bruits General: trachea midline Resp normal respiratory effort and clear to auscultation bilaterally Auscultation: Negative for rales, rhonchi or wheezes Cardio regular rate, regular rhythm, S1 normal heart sound, S2 normal heart sound, no murmurs, no rub and no gallops GI normal to inspection, nondistended, normoactive bowel sounds, soft to palpation and non-tender GI Narrative: Patient's abdomen was distended and tympanic Extremity no clubbing, cyanosis or edema Skin no rashes or lesions noted General Skin Exam: no breakdown Neuro CN's II-XII intact bilaterally, no focal motor deficits and no sensory deficits noted Neuro Narrative: Patient exhibits confusion Sensorium / Orientation: awake Psych Psych Narrative: Patient is confused Assessment & Plan Assessment/Plan (1) Shock: PLAN: Plan 1. Shock secondary to volume depletion and possible sepsis-patient will remain on IV fluids, IV antibiotics will continue for now, critical care is seeing patient #2 metabolic encephalopathy-secondary to acute illness including volume depletion and possible sepsis-continue to provide supportive care, patient is currently n.p.o. #3 acute kidney injury on a backdrop of chronic kidney disease stage IIIa-continue to monitor kidney functions, patient is receiving fluids #4 acute anemia-etiology unclear, possibly secondary to blood loss with unknown source, patient will receive 1 unit of packed red blood cells, labs will be rechecked tomorrow #5 debility secondary to multiple medical problems-PT and OT will see the patient #6 hypothyroidism-patient is on Synthroid #7 ileus-patient will be given a suppository because he is n.p.o. at this time Total clinical time spent by myself addressing the patient's medical issues, reviewing all of his data, and collaborating with patient's care team: 50 minutes Charges/Coding Visit Charges Inpatient E&M: [id number] [facility] L3
[2024-09-24] MEDS: Bisacodyl 10 MG Suppository RC (21:20)
[2024-09-24] MEDS: Vancomycin IV 1,000 MG/200 ML BAG 200 MG IV (21:20)
[2024-09-25] VITALS (21 sets, daily range): BP systolic 99–142; BP diastolic 43–88; PULSE 88–109; RESP 17–31; TEMP 36.2–36.9; O2SAT 90–100; BMI 36.2
[2024-09-25] MEDS: Levothyroxine 100 MCG Tablet 200 MCG PO (05:41)
[2024-09-25] MEDS: Albuterol 2.5 MG/3 ML VIAL.NEB. INHALATION ×3 (07:38→19:32)
[2024-09-25] MEDS: Budesonide Respules 0.5 MG/2 ML AMPUL.NEB. INHALATION ×2 (07:38→19:32)
[2024-09-25] MEDS: Pantoprazole Sodium 40 MG in 0.9% Normal Saline (100mL MB+) 100 ML 330 MG IV ×2 (08:05→22:30)
[2024-09-25] MEDS: Tamsulosin HCl 0.4 MG Capsule PO (08:07)
[2024-09-25] MEDS: Aspirin E.C. 81 MG Tablet PO (08:07)
--- NOTE | 2024-09-25 08:12 | PCM.PN.INT ---
Assessment & Plan Assessment/Plan (1) Hypotension: PLAN: Plan RECOMMENDATIONS: 1. Transfuse 1 additional unit of packed red blood cells. 2. Check H&H posttransfusion. 3. Continue to hold Eliquis for now. 4. Continue PPI therapy. 5. If hemoglobin continues to drop, consider gastroenterology consultation. 6. If cultures remain negative tomorrow, antimicrobials can be discontinued. 7. Physical therapy to work with the patient. IMPRESSIONS: 1. Hypotension Appears to be secondary to intravascular volume depletion. The patient did ultimately respond to IV fluid resuscitation and remains hemodynamically stable this morning. However, he does have underlying anemia, which has worsened over the course of his hospitalization. There are no overt signs of acute blood loss. Plan to provide the patient with another unit of packed red blood cells today. I agree with holding his Eliquis for now. If cultures remain negative tomorrow, recommend discontinuation of antimicrobial therapy. 2. Acute on chronic kidney disease Likely prerenal in etiology. Creatinine has improved from yesterday following additional fluid resuscitation. Continue to monitor urine output. No current indication for renal replacement therapy. 3. Metabolic encephalopathy Stable at this time. CT head demonstrated no acute findings. ABG was obtained and demonstrated no evidence of CO2 retention. TSH was within normal limits. 4. History of obesity/hypothyroidism/generalized debility/history of DVT/history of carotid disease/hypertension/hyperlipidemia Complicates care, management, recovery and prognosis. Continue to hold home lisinopril and Lasix. Given the patient's progressive anemia, agree with holding Eliquis. Physical therapy to work with the patient. This note was generated with [employer] dictation software. It may contain incorrect words, spelling, and punctuation that were not noted in checking the note before signing. Subjective Subjective The patient was seen and examined at the bedside this morning. Events from the last 24 hours have been reviewed. The patient is currently afebrile, hemodynamically stable and maintaining appropriate oxygen saturations on room air. The patient is documented to be overall net +9.7 L for the hospitalization. He remains pleasantly confused this morning. The patient was transfused 1 unit of packed red blood cells yesterday with a hemoglobin this morning noted to be 7.3 g/dL. Creatinine has improved to 1.37. Objective Data Objective Data The patient's most recent lab work, culture data and imaging studies have all been personally reviewed. Infectious workup has been unrevealing to date. Vital Signs: Vital Signs Temp Pulse Resp BP Pulse Ox O2 Del Method O2 Flow Rate 98.1 F 100 24 H 120/54 L 93 Room Air 2 09/25/24 08:00 09/25/24 08:00 09/25/24 08:00 09/25/24 08:00 09/25/24 08:00 09/25/24 08:00 09/25/24 06:00 FiO2 35 09/24/24 10:00 Oxygen Flow Rate (L/min) 2 Oxygen Delivery Method Room Air Weight: 267 lb 10.259 oz Body Mass Index (BMI) 36.2 Intake & Output: Intake and Output for Last 24 Hours 09/23/24 09/24/24 09/25/24 23:59 23:59 23:59 Intake Total 800 / 800 5480 / 5480 1120 / 1120 Output Total 925 / 925 1200 / 1200 350 / 350 Balance -125 / -125 4280 / 4280 770 / 770 Lab / Micro Data Attestation: I reviewed the patient's lab results. 09/25/24 08:35 09/25/24 08:35 Labs: Laboratory Results - last 24 hr 09/24/24 09:40: WBC 11.0, RBC 2.35 L, Hgb 7.1 L, Hct 22.3 L, MCV 94.9 H, MCH 30.2, MCHC 31.8 L, RDW Std Deviation 51.8 H, RDW Coeff of [place] 15.0 H, Plt Count 218, MPV 11.5, Immature Gran % (Auto) 1.800 H, Neut % (Auto) 83.2 H, Lymph % (Auto) 4.4 L, [place] % (Auto) 10.5 H, Eos % (Auto) 0.0, Baso % (Auto) 0.1, Absolute Neuts (auto) 9.2 H, Absolute Lymphs (auto) 0.49 L, Nucleated RBC % 0 09/24/24 11:50: Urine Color Yellow 09/24/24 11:50: Urine Color Cancelled, Urine Clarity Sl. Cloudy 09/24/24 11:50: Urine Clarity Cancelled, Urine pH 5.0 09/24/24 11:50: Urine pH Cancelled, Ur Specific [place] 1.020 09/24/24 11:50: Ur Specific [place] Cancelled, U Specif Grav (Refrac) Cancelled, Urine Protein 30 H 09/24/24 11:50: Urine Protein Cancelled, Urine Glucose (UA) Normal 09/24/24 11:50: Urine Glucose (UA) Cancelled, Urine Ketones Negative 09/24/24 11:50: Urine Ketones Cancelled, Urine Occult Blood 50 H 09/24/24 11:50: Urine Occult Blood Cancelled, Urine Nitrite Negative 09/24/24 11:50: Urine Nitrite Cancelled, Urine Bilirubin 1 H 09/24/24 11:50: Urine Bilirubin Cancelled, Urine Urobilinogen 1 H 09/24/24 11:50: Urine Urobilinogen Cancelled, Ur Leukocyte Esterase 500 H 09/24/24 11:50: Ur Leukocyte Esterase Cancelled, Urine RBC 0-5 SEEN 09/24/24 11:50: Urine RBC Cancelled, Urine WBC 10-25 SEEN 09/24/24 11:50: Urine WBC Cancelled, Ur Squamous Epith Cells 0 SEEN 09/24/24 11:50: Ur Squamous Epith Cells Cancelled, Ur Transition Epith Cell Cancelled, Ur Renal Epithelial Cell Cancelled, Calcium Oxalate Crystal Cancelled, Uric Acid Crystals Cancelled, Triple Phos Crystals Cancelled, Other Crystals Cancelled, Amorphous Sediment Cancelled, Urine Bacteria 1+ 09/24/24 11:50: Urine Bacteria Cancelled, Hyaline Casts >100 SEEN 09/24/24 11:50: Hyaline Casts Cancelled, Fine Granular Casts 5-10 SEEN 09/24/24 11:50: Fine Granular Casts Cancelled, Coarse Granular Casts Cancelled, Waxy Casts Cancelled, RBC Casts Cancelled, WBC Casts 0-5 SEEN 09/24/24 11:50: WBC Casts Cancelled, Urine Mucus 2+ 09/24/24 11:50: Urine Mucus Cancelled, Urine Trichomonas Cancelled, Urine Yeast Cancelled 09/24/24 14:00: Lactic Acid 1.1, Total Bilirubin 0.70, Direct Bilirubin 0.20, AST 89 H, ALT 54, Alkaline Phosphatase 47, Total Protein 5.0 L, Albumin 1.7 L, Globulin 3.3, Blood Type A NEGATIVE, Antibody Screen NEGATIVE, Crossmatch See Detail Micro: Microbiology 09/20/24 20:00 Blood Culture (Wb) - Left Hand Blood Culture - Preliminary No growth in 48 hours. 09/20/24 20:05 Blood Culture (Wb) - Other Blood Culture - Preliminary No growth in 48 hours. 09/20/24 23:10 Mucosa - Nasopharyngeal Respiratory Panel (PCR) - Final 09/20/24 18:20 Mucosa - Nose SARS-CoV-2, Influenza & RSV (PCR) - Final ABG Data ABG results: ABG 09/24/24 09:33 Specimen Type ART Sample Site R Radial pH 7.42 Bicarbonate Actual 20.3 L Total CO2 21 Base Excess -4 L O2 Saturation 100 H O2 % 80.0 ABG pCO2 31.5 L ABG pO2 236 H [place] Test N/A Respiration Rate 12 O2 Delivery Device BiPAP Vent Mode BiLevel POC PEEP 8 Radiography Diagnostic Testing: Radiology Impression Chest X-Ray 09/24/24 06:25 IMPRESSION: Mild degree of increased markings at the lung bases slightly more prominent at the left lung base suggestive of either atelectasis and/or early infiltrate. Blunting of the left costophrenic angle. Electronically Signed: Erick Hudson MD at 8:55 EST , KUB X-Ray 09/24/24 06:41 IMPRESSION: Gaseous distention of the colon as well as multiple small bowel loops suggestive of ileus gas pattern. Follow-up recommended. Electronically Signed: Erick Hudson MD at 13:00 EST , Echocardiogram 09/24/24 09:43 Interpretation Summary The left ventricular ejection fraction is 55 %. Normal LV size. The study was technically difficult. The study was technically limited. Ordering Physician: Theo Ramirez Referring Physician: KAILA SINGLETON Performed By: Daxa Ma RCS Rhythm Strip Rhythm Strip: Sinus Tach Rate: 105 Ectopy: None Physical Exam Const alert and no apparent distress Constitutional Narrative: Oriented to person only. Obese. General Appearance: cooperative HEENT normocephalic and head/scalp atraumatic Eyes EOMs intact bilaterally, conjunctivae normal and no scleral icterus Neck supple General: trachea midline Chest inspection of chest normal Resp normal respiratory effort Auscultation: Negative for rales, rhonchi or wheezes Cardio regular rate and regular rhythm GI normal to inspection, nondistended, normoactive bowel sounds Extremity no clubbing, cyanosis or edema Skin no rashes or lesions noted Neuro CN's II-XII intact bilaterally, moves all extremities and no focal motor deficits Psych Mood & Affect: flat affect Charges/Coding Visit Charges Inpatient E&M: 44312 Subs Hosp L3
[2024-09-25] MEDS: Vancomycin IV 1,000 MG/200 ML BAG 200 MG IV (08:22)
[2024-09-25] MEDS: Meropenem 1 GM in 0.9% Normal Saline (100mL MB+) 100 ML IV ×2 (08:29→23:10)
[2024-09-25 08:58] LABS: Basophil# 0.02 X10^3/uL; Basophil% 0.1 % (0-1); Eosinophil# 0.02 X10^3/uL; Eosinophils% 0.1 % (0-5); Hematocrit 23.2 % (40-54); Hemoglobin 7.3 g/dL (13.0-16.5); Lymphocyte % 6.7 % (19-41); Mean Corp Hgb Conc 31.5 g/dL (32-36); Mean Corpuscular Hgb 29.1 pg (27.0-32.0); Mean Corpuscular Volume 92.4 fL (80-94); Mean Platelet Vol. 10.8 fl (6.2-12.0); Monocyte% 8.9 % (0-10); NRBC Flagged by Analyzer 0.6 % (0-5); Neutrophil # 11.03 X10^3/uL (2.7-7.7); Platelet Count 256 K/mm3 (150-450); RBC Distribution Width CV 15.6 % (11.6-14.6); RBC Distribution Width SD 51.8 fl (35.1-43.9); Red Blood Count 2.51 M/mm3 (4.6-6.2); White Blood Count 13.5 K/mm3 (4.4-11.0)
[2024-09-25 09:08] LABS: ALB/GLOB Ratio 0.6 RATIO (0.9-2.4); AST(SGOT) 78 U/L (15-37); Alanine Aminotransfer ALT/SGPT 55 U/L (16-61); Albumin, Serum 1.8 g/dL (3.2-5.0); Alkaline Phosphatase 45 U/L (45-117); Anion Gap 4 (5-15); BUN 84 mg/dL (7-18); BUN/Creat Ratio 61.3 RATIO (10-20); Calcium,Total 7.6 mg/dL (8.5-10.1); Chloride 118 mmol/L (98-107); Creatinine, Serum 1.37 mg/dL (0.70-1.30); EST Glomerular Filtration Rate 53 mL/min (>60); Est Glom Filt Rate - Afr Amer 64 mL/min (>60); Estimated Creatinine Clearance 55.93 ml/min; Globulin 3.1 g/dL (2.2-4.2); Glucose 132 mg/dL (74-106); Potassium 4.6 mmol/L (3.5-5.1); Protein, Total 4.9 g/dL (6.4-8.2); Sodium Level 145 mmol/L (136-145)
[2024-09-25] MEDS: Lactulose 20 GM/30 ML UDC 30 GM PO (09:35)
--- NOTE | 2024-09-25 12:32 | CHAPLAIN ---
Type of Pastoral Visit ___ Initial Visit _x__ Follow-up Visit ___ On-call Visit ___ General Patient Visit ___ Spiritual Assessment ___ Family Conference ___ Bereavement ___ Rapid Response ___ Code Blue ___ Other (describe below) Pastoral Care Referral From ___ Patient _x__ Family ___ Nurse ___ Physician ___ Silverware Cleaner ___ Admittance Attendant ___ Other (describe below) Sacrament/Intervention _x__ Active listening ___ Anointing ___ Jew ___ Bereavement ___ Communion ___ Parris exploration ___ ___ Life review ___ Prayer ___ Reconciliation ___ Sacrament of Sick _x__ Supportive presence ___ Wedding ___ Other (describe below) Pastoral Comments patient has been restless and he has pulled his wires and IV's out just prior to this visit; sat with patient and talked with him until the nurses came to medically care for the patient so it was a brief visit; pt is able to talk and answer questions but he deflects comments and returns with questions and makes light of his situation; pt appears to have some confusion and inability to comprehend what he is doing and what is happening fully; gave calm presence and tried encouraging words to help pt realize that he is in a good place and people are trying to help him get better
--- NOTE | 2024-09-25 14:24 | CASEMGMT ---
Addendum entered by Amalia Hernandez 09/25/24 14:50: [facility] declined d/t no bed availability. Amalia Hernandez DC Planning Asst. Original Note: Discharge Planning Referral sent via [facility] to [facility]. Amalia Hernandez DC Planning Asst
--- NOTE | 2024-09-25 15:44 | CASEMGMT ---
Social Work SW called pt's daughter Isabela, message left. Isabela called ICU back, SW then tried to call her again, 2nd message left. DEVORA Isaac
--- NOTE | 2024-09-25 17:06 | PN.HOSP_ITS ---
Reason for Visit Reason for Visit: Diagnoses Encephalopathy, unspecified (09/20/24) Hypotension, unspecified (09/20/24) Acute kidney failure, unspecified (09/20/24) Weakness (09/20/24) Shock, unspecified (09/20/24) Unspecified fall, initial encounter (09/20/24) Subjective Subjective Patient was seen and examined today, he remains confused and will not take oral intake most of the time. Talk with his daughter by phone today and she stated that she talked with her sister and they reached a decision that if the patient's heart was to stop or if he was to stop breathing they would not want him resuscitated. I asked her about nutritional support such as of an NG tube or a PEG tube, they were not against this, patient's abdomen remains distended at this time and I would like him to get some lactulose down his NG tube to see if his ileus will clear. I wrote for sedation for the patient because it will be necessary to place his NG. Patient pulled out his PICC line today, made decision not to replace the PICC line. Patient's CODE STATUS was changed to a DNR CC arrest without intubation. Objective Data Objective Data Vital Signs: Vital Signs Temp Pulse Resp BP Pulse Ox O2 Del Method O2 Flow Rate 98.4 F 100 18 122/67 H 98 Room Air 2 09/25/24 14:38 09/25/24 14:23 09/25/24 14:38 09/25/24 14:23 09/25/24 14:38 09/25/24 14:38 09/25/24 06:00 FiO2 35 09/24/24 10:00 Oxygen Flow Rate (L/min) 2 Oxygen Delivery Method Room Air Weight: 121.4 kg Body Mass Index (BMI) 36.2 Intake & Output: Intake and Output for Last 24 Hours 09/23/24 09/24/24 09/25/24 23:59 23:59 23:59 Intake Total 800 / 800 5480 / 5480 1550 / 1550 Output Total 925 / 925 1200 / 1200 350 / 350 Balance -125 / -125 4280 / 4280 1200 / 1200 Lab / Micro Data 09/25/24 08:35 09/25/24 08:35 Labs: Laboratory Results - last 24 hr 09/24/24 14:00: Crossmatch See Detail 09/25/24 08:35: WBC 13.5 H, RBC 2.51 L, Hgb 7.3 L, Hct 23.2 L, MCV 92.4, MCH 29.1, MCHC 31.5 L, RDW Std Deviation 51.8 H, RDW Coeff of [place] 15.6 H, Plt Count 256, MPV 10.8, Immature Gran % (Auto) 2.200 H, Neut % (Auto) 82.0 H, Lymph % (Auto) 6.7 L, [place] % (Auto) 8.9, Eos % (Auto) 0.1, Baso % (Auto) 0.1, Absolute Neuts (auto) 11.0 H, Absolute Lymphs (auto) 0.90, Nucleated RBC % 0.6, Sodium 145, Potassium 4.6, Chloride 118 H, Carbon Dioxide 23.0, Anion Gap 4 L, BUN 84 H , Creatinine 1.37 H, Estim Creat Clear Calc 55.93, Est GFR (MDRD) Af Amer 64, E st GFR (MDRD) Non-Af 53 L, BUN/Creatinine Ratio 61.3 H, Glucose 132 H, Calcium 7.6 L, Total Bilirubin 0.90, AST 78 H, ALT 55, Alkaline Phosphatase 45, Total Protein 4.9 L, Albumin 1.8 L, Globulin 3.1, Albumin/Globulin Ratio 0.6 L 09/25/24 14:00: Crossmatch See Detail Micro: Microbiology 09/24/24 11:50 Urine Catheter - Little Urine Culture - Preliminary Culture exhibits no growth. 09/20/24 20:00 Blood Culture (Wb) - Left Hand Blood Culture - Preliminary No growth in 48 hours. 09/20/24 20:05 Blood Culture (Wb) - Other Blood Culture - Preliminary No growth in 48 hours. 09/20/24 23:10 Mucosa - Nasopharyngeal Respiratory Panel (PCR) - Final 09/20/24 18:20 Mucosa - Nose SARS-CoV-2, Influenza & RSV (PCR) - Final Rhythm Strip Rhythm Strip: Sinus Tach Rate: 105 Ectopy: None Physical Exam Const alert Constitutional Narrative: Patient is alert but confused, he does not carry on a conversation with this examiner General Appearance: well kempt and well developed Orientation / Consciousness: awake HEENT normocephalic, head/scalp atraumatic and moist oral mucous membranes Eyes PERRL, EOMs intact bilaterally and conjunctivae normal Neck supple, no JVD, thyroid normal and no carotid bruits General: trachea midline Resp normal respiratory effort, no retractions, no use of accessory muscles and clear to auscultation bilaterally Auscultation: Negative for rales, rhonchi or wheezes Cardio regular rate, regular rhythm, S1 normal heart sound, S2 normal heart sound, no murmurs, no rub and no gallops GI GI Narrative: Abdomen is distended and tympanic, bowel sounds are decreased Extremity no clubbing, cyanosis or edema Skin no rashes or lesions noted General Skin Exam: no breakdown Neuro CN's II-XII intact bilaterally, moves all extremities, no focal motor deficits and no sensory deficits noted Sensorium / Orientation: awake Psych Psych Narrative: Patient confused Assessment & Plan Assessment/Plan (1) Shock: PLAN: Plan 1. Shock secondary to volume depletion and possible sepsis-patient's blood pressures responded to IV fluids, I have decided to stop his IV vancomycin and continue with meropenem, cultures are pending #2 metabolic encephalopathy-secondary to acute illness including volume depletion and possible sepsis-continue to provide supportive care, I will have an NG tube placed today, patient will receive tube feeds as soon as he begins to stool #3 acute kidney injury on a backdrop of chronic kidney disease stage IIIa- continue to monitor kidney functions, patient is receiving fluids #4 acute anemia-etiology unclear, patient is on a PPI at this time, his hemoglobin this morning was 7.3, CBC will be rechecked tomorrow #5 debility secondary to multiple medical problems-PT and OT will see the patient #6 hypothyroidism-patient is on Synthroid #7 ileus-as soon as the patient has an NG tube placed I will put lactulose down his tube in an attempt to resolve his ileus Patient is a DNR CC arrest without intubation Total clinical time spent by myself addressing the patient's medical issues, reviewing all of his data, and collaborating with patient's care team: 35 minutes Charges/Coding Visit Charges Inpatient E&M: 30869 Subs Hosp L2
[2024-09-25] MEDS: Oxymetazoline 0.05% 1 SPRAY SPRAY.BTL 2 SPRAY NASAL (17:54)
[2024-09-25] MEDS: Lactulose 20 GM/30 ML UDC 30 GM NG ×2 (17:55→23:45)
--- NOTE | 2024-09-25 18:05 | RAD_ITS ---
STUDY: X-RAY - ABDOMEN REASON FOR EXAM: Male, 83 years old. NG verification -- KUB with both diaphragms for NG/OG Verification TECHNIQUE: Single AP view of the abdomen . COMPARISON: September 24, 2024 FINDINGS: There are mild lower lung opacities with atelectasis or infiltrates. There are sternotomy wires. Feeding tube extends to the distal stomach or duodenum in the right upper abdomen. There is an unremarkable bowel gas pattern. There is no demonstrated free abdominal air. Normal soft tissue structures. There is degenerative change of the spine. RAD/Abdomen Single View (Portable) IMPRESSION: Feeding tube extends to the distal stomach or duodenum. Electronically Signed: Crow Reyes MD at 19:18 EST ,
--- NOTE | 2024-09-25 22:25 | CT_ITS ---
STUDY: CT ABDOMEN AND PELVIS WITH CONTRAST REASON FOR EXAM: Male, 83 years old. GI bleed RADIATION DOSAGE (If Supplied By Facility): CTDIvol = ( 28.58 ) mGy, DLP = ( 1555.92 ) mGycm TECHNIQUE: Transaxial images were obtained from the dome of the diaphragm to the symphysis pubis without oral contrast. IV 100mL Isovue-370 was administered. Sagittal and coronal images were reconstructed. Individualized dose optimization techniques were used for this CT. COMPARISON: None. FINDINGS: Feeding tube extends to the proximal duodenum. There is lower lung consolidation. There are sternotomy wires. Normal liver. There is a solitary gallstone. Normal spleen. Normal pancreas. Normal bilateral adrenal glands. Normal right kidney. Normal left kidney. Normal visualized stomach. There are dilated loops of the small intestine with a non-distended colon consistent with a small bowel obstruction. There are multiple colonic diverticula consistent with diverticulosis. There is non-visualization of the appendix. There is diffuse atherosclerotic calcification of the abdominal aorta, without a demonstrated aneurysm. Normal inferior vena cava. Normal retroperitoneum. There is a Little catheter in urinary bladder. There is no free fluid in the abdomen or pelvis. Normal abdominal wall. There is degenerative change of the spine and hips. CT/Abdomen/Pelvis W IV Cont ONLY IMPRESSION: Colonic diverticulosis. Small bowel obstruction. Feeding tube in position. Gallstone. Lower lung consolidation. Electronically Signed: Crow Reyes MD at 23:47 EST ,
[2024-09-25] MEDS: Pantoprazole Sodium 80 MG in 0.9% Normal Saline (100mL Bag) 80 ML 10 MG CONT INF (23:32)
[2024-09-26] VITALS (11 sets, daily range): BP systolic 120–156; BP diastolic 53–69; PULSE 74–99; RESP 16–21; TEMP 36.1–36.9; O2SAT 93–98; BMI 35.5
[2024-09-26 00:02] LABS: Hematocrit 24.2 % (40-54); Hemoglobin 7.7 g/dL (13.0-16.5); Mean Corp Hgb Conc 31.8 g/dL (32-36); Mean Corpuscular Hgb 28.9 pg (27.0-32.0); Mean Platelet Vol. 10.4 fl (6.2-12.0); POSITIVE COUNT YES; POSITIVE MORPHOLOGY YES; Platelet Count 236 K/mm3 (150-450); RBC Distribution Width CV 16.3 % (11.6-14.6); RBC Distribution Width SD 53.8 fl (35.1-43.9); Red Blood Count 2.66 M/mm3 (4.6-6.2); White Blood Count 13.8 K/mm3 (4.4-11.0)
[2024-09-26 00:05] LABS: Differential Indicated MANUAL DIFF
[2024-09-26 00:54] LABS: Lymphocyte 4 % (19-41); Monocyte 5 % (0-10); Neutrophil-Band 4 % (0-5); Neutrophil-Segmented 87 % (47-70); Total Cells Counted 100 (MANUAL DIFF)
[2024-09-26 00:55] LABS: Anisocytosis 1+; Platelet Estimate ADEQUATE (ADEQ)
[2024-09-26 00:56] LABS: Absolute Lymphocyte Count 0.55 X10^3/uL (0.83-4.51); Absolute Neutrophil Count 12.7 X10^3/uL (2.0-7.7)
[2024-09-26] MEDS: Albuterol 2.5 MG/3 ML VIAL.NEB. INHALATION ×2 (07:29→19:04)
[2024-09-26] MEDS: Budesonide Respules 0.5 MG/2 ML AMPUL.NEB. INHALATION ×2 (07:29→19:05)
[2024-09-26 08:49] LABS: Hematocrit 25.5 % (40-54); Hemoglobin 8.1 g/dL (13.0-16.5); Mean Corp Hgb Conc 31.8 g/dL (32-36); Mean Corpuscular Hgb 29.1 pg (27.0-32.0); Mean Corpuscular Volume 91.7 fL (80-94); Mean Platelet Vol. 10.9 fl (6.2-12.0); POSITIVE COUNT YES; POSITIVE DIFFERENTIAL YES; POSITIVE MORPHOLOGY YES; Platelet Count 265 K/mm3 (150-450); RBC Distribution Width CV 16.7 % (11.6-14.6); RBC Distribution Width SD 54.4 fl (35.1-43.9); Red Blood Count 2.78 M/mm3 (4.6-6.2); White Blood Count 15.3 K/mm3 (4.4-11.0)
[2024-09-26 08:51] LABS: Differential Indicated MANUAL DIFF
[2024-09-26 09:10] LABS: ALB/GLOB Ratio 0.6 RATIO (0.9-2.4); AST(SGOT) 68 U/L (15-37); Alanine Aminotransfer ALT/SGPT 58 U/L (16-61); Alkaline Phosphatase 49 U/L (45-117); Anion Gap 2 (5-15); BUN 75 mg/dL (7-18); Calcium,Total 8.5 mg/dL (8.5-10.1); Chloride 124 mmol/L (98-107); Creatinine, Serum 1.21 mg/dL (0.70-1.30); EST Glomerular Filtration Rate 61 mL/min (>60); Est Glom Filt Rate - Afr Amer 74 mL/min (>60); Estimated Creatinine Clearance 62.69 ml/min; Globulin 3.2 g/dL (2.2-4.2); Glucose 134 mg/dL (74-106); Potassium 4.2 mmol/L (3.5-5.1); Protein, Total 5.2 g/dL (6.4-8.2); Sodium Level 150 mmol/L (136-145)
--- NOTE | 2024-09-26 09:12 | CASEMGMT ---
JEFFREY called patient's daughter Isabela and left her a voice mail requesting more SNF choices. Marilyn Peña [employer] PLANT OPERATOR JAZMIN
[2024-09-26 09:35] LABS: Anisocytosis 1+; Macrocytosis 1+; Polychromasia 2+
[2024-09-26 09:36] LABS: Metamyelocyte 3 % (0-1); Neutrophil-Band 4 % (0-5); Neutrophil-Segmented 79 % (47-70)
[2024-09-26 09:37] LABS: Absolute Neutrophil Count 12.7 X10^3/uL (2.0-7.7); Eosinophil 1 % (0-5); Lymphocyte 10 % (19-41); Monocyte 3 % (0-10)
[2024-09-26 09:38] LABS: Absolute Lymphocyte Count 1.53 X10^3/uL (0.83-4.51)
--- NOTE | 2024-09-26 10:00 | CASEMGMT ---
JEFFREY received a call from patient's daughter Isabela. Isabela said she is getting off work today at noon and will be coming to [facility]. Isabela would like to meet with JEFFREY. Isabela said when she gets to [facility] she will ask for JEFFREY. Marilyn WU
[2024-09-26] MEDS: Meropenem 1 GM in 0.9% Normal Saline (100mL MB+) 100 ML IV ×2 (10:14→23:13)
[2024-09-26] MEDS: Pantoprazole Sodium 80 MG in 0.9% Normal Saline (100mL Bag) 80 ML 10 MG CONT INF (10:14)
--- NOTE | 2024-09-26 10:14 | EX.PCM.CON.S ---
Assessment & Plan Assessment/Plan (1) Small bowel obstruction: PLAN: I have been consulted in conjunction with Dr. Justice. She will independently evaluate this patient. Patient presents after laying on the floor for 2 days after an unwitnessed incident/fall. Patient was noted to have an ileus and a bowel stimulant was started to assist with increased bowel function. Patient became more distended and an NG tube was placed. Patient had a CT scan of the ab/pel after noting dark black output from the NG tube which was sent off consistent with gastric occult blood positive. CT scan demonstrated a small bowel obstruction and our service was consulted for management. Patient does not appear to have an acute surgical abdomen based on examination. Patient has had 400 cc of output since 0600. Recommend a small bowel follow-through and an enema. Plan was explained to the patient, who is agreeable to proceed. Patient had the opportunity to ask and have questions answered. We will continue to monitor this patient and make recommendations along the way. At this time no surgical intervention is planned. This has been communicated to the hospitalist. Thank you for allowing us to participate in this patient's care. HPI Consult Data Date of Consult: 09/26/24 HPI Narrative Reason for Consultation: Small bowel obstruction HPI Narrative: GEORGE KEY, is a 83 M who presents to the ED after an unwitnessed fall. Patient was found on the fall after 2 days by his daughter. Patient is a poor historian and unable to give a history of what happened and what brought him to the hospital. Patient denies any previous abdominal surgeries. He states he is passing flatus. He is unsure when his last bowel movement was. He is not able to tell me about his medical history. Per patient chart, he has had a previous laparoscopic cholecystectomy [place] [address] Justice. Left carotid endarterectomy in July of [address] Webb. Triple cardiac bypass surgery, unknown date. History of bilateral shoulder surgery. According to patient's medication list, he is on aspirin and Eliquis. Aspirin is currently being continued during his hospitalization. Eliquis is on hold. No family is present to add to his current history. Patient has been treated for an ileus during his hospitalization. Yesterday, he had an NG tube placed yesterday due to abdominal distention in order to place lactulose down to assist with the resolution of the ileus. CT of the ab/pel was ordered at some point last night due to positive gastric occult blood from gastric contents. CT demonstrated dilated loops of small bowel and non-distended colon consistent with small bowel obstruction. General surgery was consulted for management of the small bowel obstruction. Patient's Hgb is 8.1 today. He has received 2 units of PRBC this hospitalization. He is on a PPI. [facility] Medical History Lives alone Poor historian Uses wheelchair Ambulates with cane Bladder disease High cholesterol Injury of head and neck Syncope Difficulty swallowing Shortness of breath on exertion On home oxygen therapy Leg cramps History of edema Chronic obstructive pulmonary disease (COPD) DVT of lower extremity (deep venous thrombosis) Wears hearing aid Wears glasses Wears partial dentures Thyroid disease Arthritis Back pain Former smoker Leg cramps History of stress test Cardiology follow-up encounter History of irregular heartbeat BPH (benign prostatic hyperplasia) Coronary artery disease Home Medications ?Medication ?Instructions ?Recorded ?Last Taken ?Type atenolol 25 mg tablet 25 mg PO DAILY blood pressure 10/10/17 07/22/24 History cetirizine 10 mg tablet 10 mg PO DAILY allergies 11/03/21 07/08/24 History psyllium husk 0.4 gram capsule 0.4 g PO DAILY fiber 12/24/21 Unknown History (Daily Fiber) tamsulosin 0.4 mg capsule 0.4 mg PO BID prostate 12/24/21 07/22/24 21:00 History rosuvastatin 10 mg tablet 10 mg PO QHS cholesterol 09/14/23 07/22/24 21:27 History apixaban 5 mg tablet (Eliquis) 5 mg PO BID pvd 60 days #120 tabs 09/17/23 07/17/24 Rx lisinopril 20 mg tablet 20 mg PO BID bp 10/21/23 07/22/24 History nitroglycerin 0.4 mg sublingual 0.4 mg sublingual Q5M PRN chest 01/25/24 Unknown History tablet pain aspirin 81 mg tablet,delayed 81 mg PO DAILY supplement 07/10/24 07/22/24 History release (Adult Low Dose Aspirin) fluticasone 250 mcg-salmeterol 50 1 ea inhalation BID asthma 07/10/24 07/22/24 15:25 History mcg/dose blistr powdr for inhalation naproxen sodium 220 mg tablet 220 mg PO Q12H PRN 08/07/24 Unknown History (Aleve) levothyroxine 150 mcg tablet 150 mcg PO DAILY Thyroid 09/20/24 Unknown History albuterol sulfate 90 mcg/actuation inhalation SOB 09/21/24 Unknown History aerosol inhaler furosemide 20 mg tablet 40 mg PO DAILY Water Pill 09/21/24 Unknown History gabapentin 400 mg capsule 400 mg PO TID nerve pain 09/21/24 Unknown History Allergy/AdvReac Type Severity Reaction Status Date / Time atorvastatin (From Lipitor) AdvReac Intermediate Other Verified 08/07/24 08:41 Family History Other Cancer Surgical History S/P carotid endarterectomy History of cholecystectomy History of cardiac catheterization Hx of shoulder surgery History of coronary artery bypass graft Social History household members: none housing: apartment pets and animals: Yes Smoking Status: Former smoker substance use type: does not use ROS Constitutional Constitutional: Reports systems reviewed and no addt'l complaints, except as documented Eyes Eyes: Reports systems reviewed and no addt'l complaints, except as documented ENT HEENT: Reports systems reviewed and no addt'l complaints, except as documented Cardiovascular Cardiovascular: Reports systems reviewed and no addt'l complaints, except as documented Respiratory/Chest Respiratory/Chest: Reports systems reviewed and no addt'l complaints, except as documented Gastrointestinal Gastrointestinal: Reports systems reviewed and no addt'l complaints, except as documented Genitourinary Genitourinary: Reports systems reviewed and no addt'l complaints, except as documented Musculoskeletal Musculoskeletal: Reports systems reviewed and no addt'l complaints, except as documented Integumentary Integumentary: Reports systems reviewed and no addt'l complaints, except as documented Neurologic Neurologic: Reports systems reviewed and no addt'l complaints, except as documented Psychiatric Psychiatric: Reports systems reviewed and no addt'l complaints, except as documented Endocrine Endocrinology: Reports systems reviewed and no addt'l complaints, except as documented Hematologic/Lymphatic Hematologic/Lymphatic: Reports systems reviewed and no addt'l complaints, except as documented Allergic/Immunologic Allergic/Immunologic: Reports systems reviewed and no addt'l complaints, except as documented Physical Exam Const Constitutional Narrative: Poor historian. Will answer questions, however he does not know the answer to most. He kept his eyes closed the entire visit. Nutritional Appearance: morbidly obese HEENT normocephalic and head/scalp atraumatic Eyes PERRL Neck full ROM Resp normal respiratory effort and clear to auscultation bilaterally Cardio regular rate and regular rhythm GI GI Narrative: Abdomen- distended, hypoactive bowel sounds throughout. Incisions notes from previous cholecystectomy. No pain with palpation. no CVA tenderness Back/Spine no CVA tenderness Extremity General Extremity: edema bilateral lower extremity Skin no rashes or lesions noted Neuro Sensorium / Orientation: orientation impaired and lethargic Psych Attitude: withdrawn Activity / Motor Behavior: avoids eye contact Mood & Affect: labile affect Lab / Micro Data 09/26/24 08:30 09/26/24 08:30 Labs: Laboratory Results - last 24 hr 09/25/24 14:00: Crossmatch See Detail 09/25/24 23:45: WBC 13.8 H, RBC 2.66 L, Hgb 7.7 L, Hct 24.2 L, MCV 91.0, MCH 28.9, MCHC 31.8 L, RDW Std Deviation 53.8 H, RDW Coeff of [place] 16.3 H, Plt Count 236, MPV 10.4, Neut % (Auto) Not Reportable, Absolute Neuts (auto) 12.7 H, Absolute Lymphs (auto) 0.55 L, Total Counted 100, Neutrophils % (Manual) 87 H, Band Neutrophils % 4, Lymphocytes % (Manual) 4 L, Monocytes % (Manual) 5, Platelet Estimate ADEQUATE, Anisocytosis 1+ 09/26/24 08:30: WBC 15.3 H, RBC 2.78 L, Hgb 8.1 L, Hct 25.5 L, MCV 91.7, MCH 29.1, MCHC 31.8 L, RDW Std Deviation 54.4 H, RDW Coeff of [place] 16.7 H, Plt Count 265, MPV 10.9, Neut % (Auto) Not Reportable, Absolute Neuts (auto) 12.7 H, Absolute Lymphs (auto) 1.53, Neutrophils % (Manual) 79 H, Band Neutrophils % 4, Lymphocytes % (Manual) 10 L, Monocytes % (Manual) 3, Eosinophils % (Manual) 1, Metamyelocytes % 3 H, Diff Path Review May foll, Polychromasia 2+, Anisocytosis 1+, Macrocytosis 1+, Sodium 150 H, Potassium 4.2, Chloride 124 H, Carbon Dioxide 25.0, Anion Gap 2 L, BUN 75 H, Creatinine 1.21, Estim Creat Clear Calc 62.69, Est GFR (MDRD) Af Amer 74, Est GFR (MDRD) Non-Af 61, BUN/Creatinine Ratio 62.0 H, Glucose 134 H, Calcium 8.5, Total Bilirubin 1.40 H, AST 68 H, ALT 58, Alkaline Phosphatase 49, Total Protein 5.2 L, Albumin 2.0 L, Globulin 3.2, Albumin/Globulin Ratio 0.6 L Micro: Microbiology 09/24/24 11:50 Urine Catheter - Little Urine Culture - Final Culture exhibits no growth. 09/20/24 20:00 Blood Culture (Wb) - Left Hand Blood Culture - Final No growth in 5 days. 09/20/24 20:05 Blood Culture (Wb) - Other Blood Culture - Final No growth in 5 days. 09/25/24 18:30 Gastric Fluid/Contents Gastric Occult Blood - Final Occult Blood Positive Rhythm Strip Rhythm Strip: Sinus Tach Rate: 105 Ectopy: None Imaging Radiology Impression KUB X-Ray 09/25/24 18:05 IMPRESSION: Feeding tube extends to the distal stomach or duodenum. Electronically Signed: Crow Reyes MD at 19:18 EST , Abdomen/Pelvis CT 09/25/24 22:25 IMPRESSION: Colonic diverticulosis. Small bowel obstruction. Feeding tube in position. Gallstone. Lower lung consolidation. Electronically Signed: Crow Reyes MD at 23:47 EST , Charges/Coding Visit Charges Inpatient E&M: 09146 Init Hosp L2
--- NOTE | 2024-09-26 10:33 | RAD_ITS ---
STUDY: GASTROGRAFIN SMALL BOWEL FOLLOW-THROUGH EXAMINATION. REASON FOR EXAM: Male, 83 years old. Small bowel obstruction -- Gastrografin; Portable KUB immed, 1H, 3H, 7 HOUR, 19 HR TECHNIQUE: Gastrografin was introduced through the indwelling nasogastric tube. COMPARISON: None. FINDINGS: There is evidence of a small bowel dilatation. Contrast is seen within the colon at 3 hours. Findings suggestive of ileus pattern. RAD/Small Bowel Series Only IMPRESSION: Findings suggesting small bowel ileus. Electronically Signed: Erick Hudson MD at 7:52 EST ,
--- NOTE | 2024-09-26 10:44 | PCM.PN.INT ---
Assessment & Plan Assessment/Plan (1) Hypotension: PLAN: Plan RECOMMENDATIONS: 1. Continue antimicrobials to complete 7 days of therapy. 2. Continue to hold Eliquis. 3. Monitor H&H and transfuse if hemoglobin drops below 7 g/dL. 4. Continue PPI therapy as ordered. 5. Start D5W given evidence of hypernatremia. 6. Surgery consultation due to small bowel obstruction. 7. Continue n.p.o. status for now. IMPRESSIONS: 1. Hypotension Resolved. Appears to be secondary to intravascular volume depletion. The patient did ultimately respond to IV fluid resuscitation and remains hemodynamically stable this morning. However, he does have underlying anemia, which has worsened over the course of his hospitalization. There are no overt signs of acute blood loss. Plan to continue to monitor H&H and transfuse if hemoglobin drops below 7 g/dL. The patient's Eliquis will remain on hold. In light of the fact that he has a left lower lobe consolidation on CT imaging, we will plan to continue empiric antibiotics to complete 7 days of therapy. 2. Small bowel obstruction Continue bowel rest with n.p.o. status and NG tube to suction. General surgery consultation is currently pending. 3. Hypernatremia Start D5W as ordered. Recheck labs in the morning. 4. Acute on chronic kidney disease Resolved. Likely prerenal in etiology. Creatinine has improved from yesterday following additional fluid resuscitation. Continue to monitor urine output. No current indication for renal replacement therapy. 5. Metabolic encephalopathy Stable at this time. CT head demonstrated no acute findings. ABG was obtained and demonstrated no evidence of CO2 retention. TSH was within normal limits. 6. History of obesity/hypothyroidism/generalized debility/history of DVT/history of carotid disease/hypertension/hyperlipidemia Complicates care, management, recovery and prognosis. Continue to hold home lisinopril and Lasix. Given the patient's progressive anemia, agree with holding Eliquis. Physical therapy to work with the patient. This note was generated with [employer] dictation software. It may contain incorrect words, spelling, and punctuation that were not noted in checking the note before signing. Subjective Subjective The patient was seen and examined at the bedside this morning. Events from the last 24 hours have been reviewed. The patient is currently afebrile, hemodynamically stable and maintaining appropriate oxygen saturations on room air. Last evening, a CT abdomen/pelvis was obtained due to distention, which demonstrated a small bowel obstruction. An NG tube was subsequently placed. The patient was also noted to be positive for gastric occult blood. White blood cell count is elevated at 15,000. Hemoglobin was noted to be 8.1 g/dL. Sodium has increased to 150 with a chloride of 124 and creatinine of 1.2. Objective Data Objective Data The patient's most recent lab work, culture data and imaging studies have all been personally reviewed. Infectious workup has been unrevealing to date. Vital Signs: Vital Signs Temp Pulse Resp BP Pulse Ox O2 Del Method O2 Flow Rate 97.0 F L 90 16 135/55 H 95 Room Air 2 09/26/24 08:50 09/26/24 10:07 09/26/24 10:07 09/26/24 10:07 09/26/24 10:07 09/26/24 10:07 09/25/24 06:00 FiO2 35 09/24/24 10:00 Oxygen Flow Rate (L/min) 2 Oxygen Delivery Method Room Air Weight: 262 lb 5.601 oz Body Mass Index (BMI) 35.5 Intake & Output: Intake and Output for Last 24 Hours 09/24/24 09/25/24 09/26/24 23:59 23:59 23:59 Intake Total 5480 / 5480 1550 / 1550 330 / 330 Output Total 1200 / 1200 2100 / 2700 3150 / 3150 Balance 4280 / 4280 -550 / -1150 -2820 / -2820 Lab / Micro Data Attestation: I reviewed the patient's lab results. 09/26/24 08:30 09/26/24 08:30 Labs: Laboratory Results - last 24 hr 09/25/24 14:00: Crossmatch See Detail 09/25/24 23:45: WBC 13.8 H, RBC 2.66 L, Hgb 7.7 L, Hct 24.2 L, MCV 91.0, MCH 28.9, MCHC 31.8 L, RDW Std Deviation 53.8 H, RDW Coeff of [place] 16.3 H, Plt Count 236, MPV 10.4, Neut % (Auto) Not Reportable, Absolute Neuts (auto) 12.7 H, Absolute Lymphs (auto) 0.55 L, Total Counted 100, Neutrophils % (Manual) 87 H, Band Neutrophils % 4, Lymphocytes % (Manual) 4 L, Monocytes % (Manual) 5, Platelet Estimate ADEQUATE, Anisocytosis 1+ 09/26/24 08:30: WBC 15.3 H, RBC 2.78 L, Hgb 8.1 L, Hct 25.5 L, MCV 91.7, MCH 29.1, MCHC 31.8 L, RDW Std Deviation 54.4 H, RDW Coeff of [place] 16.7 H, Plt Count 265, MPV 10.9, Neut % (Auto) Not Reportable, Absolute Neuts (auto) 12.7 H, Absolute Lymphs (auto) 1.53, Neutrophils % (Manual) 79 H, Band Neutrophils % 4, Lymphocytes % (Manual) 10 L, Monocytes % (Manual) 3, Eosinophils % (Manual) 1, Metamyelocytes % 3 H, Diff Path Review May foll, Polychromasia 2+, Anisocytosis 1+, Macrocytosis 1+, Sodium 150 H, Potassium 4.2, Chloride 124 H, Carbon Dioxide 25.0, Anion Gap 2 L, BUN 75 H, Creatinine 1.21, Estim Creat Clear Calc 62.69, Est GFR (MDRD) Af Amer 74, Est GFR (MDRD) Non-Af 61, BUN/Creatinine Ratio 62.0 H, Glucose 134 H, Calcium 8.5, Total Bilirubin 1.40 H, AST 68 H, ALT 58, Alkaline Phosphatase 49, Total Protein 5.2 L, Albumin 2.0 L, Globulin 3.2, Albumin/Globulin Ratio 0.6 L Micro: Microbiology 09/24/24 11:50 Urine Catheter - Little Urine Culture - Final Culture exhibits no growth. 09/20/24 20:00 Blood Culture (Wb) - Left Hand Blood Culture - Final No growth in 5 days. 09/20/24 20:05 Blood Culture (Wb) - Other Blood Culture - Final No growth in 5 days. 09/25/24 18:30 Gastric Fluid/Contents Gastric Occult Blood - Final Occult Blood Positive 09/20/24 23:10 Mucosa - Nasopharyngeal Respiratory Panel (PCR) - Final 09/20/24 18:20 Mucosa - Nose SARS-CoV-2, Influenza & RSV (PCR) - Final ABG Data ABG results: ABG 09/24/24 09:33 Specimen Type ART Sample Site R Radial pH 7.42 Bicarbonate Actual 20.3 L Total CO2 21 Base Excess -4 L O2 Saturation 100 H O2 % 80.0 ABG pCO2 31.5 L ABG pO2 236 H [place] Test N/A Respiration Rate 12 O2 Delivery Device BiPAP Vent Mode BiLevel POC PEEP 8 Radiography Diagnostic Testing: Radiology Impression KUB X-Ray 09/25/24 18:05 IMPRESSION: Feeding tube extends to the distal stomach or duodenum. Electronically Signed: Crow Reyes MD at 19:18 EST , Abdomen/Pelvis CT 09/25/24 22:25 IMPRESSION: Colonic diverticulosis. Small bowel obstruction. Feeding tube in position. Gallstone. Lower lung consolidation. Electronically Signed: Crow Reyes MD at 23:47 EST , Rhythm Strip Rhythm Strip: Sinus Tach Rate: 105 Ectopy: None Physical Exam Const alert and no apparent distress Constitutional Narrative: Remains confused. General Appearance: cooperative HEENT normocephalic and head/scalp atraumatic HEENT Narrative: Nasogastric tube in place. Eyes EOMs intact bilaterally, conjunctivae normal and no scleral icterus Neck supple General: trachea midline Chest inspection of chest normal Resp normal respiratory effort Auscultation: Negative for rales, rhonchi or wheezes Cardio regular rate and regular rhythm GI normal to inspection, nondistended, normoactive bowel sounds Extremity no clubbing, cyanosis or edema Skin no rashes or lesions noted Neuro CN's II-XII intact bilaterally, moves all extremities and no focal motor deficits Psych Mood & Affect: flat affect Charges/Coding Visit Charges Inpatient E&M: 57443 Subs Hosp L3
[2024-09-26] MEDS: Dextrose 5%-Water (1000mL Bag) 1,000 ML 100 ML IV (13:37)
--- NOTE | 2024-09-26 14:52 | CASEMGMT ---
Patient's daughter Isabela came to talk with JEFFREY. Isabela had many questions. SW was able to answer some questions. Isabela is not sure what the next step is going to be as the physician told her patient has brain damage. JEFFREY suggested Isabela talk with an real estate associate attorney about the next steps regarding patient's apartment, car, etc. Isabela is not sure what facility to pick as she does not know if he is able to be rehabbed. JEFFREY took Isabela to patient's room. RN was notified she was here. JEFFREY also sent physician a message about talking to patient's daughter Isabela. Plan: [facility] [employer] [facility]
[2024-09-26 16:22] LABS: Pathologist Review Reviewed
--- NOTE | 2024-09-26 18:02 | PCM.PN.HOSP ---
Reason for Visit Reason for Visit: Diagnoses Encephalopathy, unspecified (09/20/24) Hypotension, unspecified (09/20/24) Unspecified intestinal obstruction, unspecified as to partial versus complete obstruction (09/20/24) Acute kidney failure, unspecified (09/20/24) Weakness (09/20/24) Shock, unspecified (09/20/24) Unspecified fall, initial encounter (09/20/24) Subjective Subjective Patient was seen and examined today, I talked briefly with his daughter who was in the room at time of my examination, patient had a CT done earlier this morning that showed a possible bowel obstruction, I had general surgery see the patient and they do not feel that it is a bowel obstruction they feel that is more in keeping with an ileus. Objective Data Objective Data Vital Signs: Vital Signs Temp Pulse Resp BP Pulse Ox O2 Del Method O2 Flow Rate 97.0 F L 83 18 147/55 H 98 Room Air 2 09/26/24 15:54 09/26/24 17:22 09/26/24 17:22 09/26/24 17:22 09/26/24 17:22 09/26/24 17:22 09/25/24 06:00 FiO2 35 09/24/24 10:00 Oxygen Flow Rate (L/min) 2 Oxygen Delivery Method Room Air Weight: 119 kg Body Mass Index (BMI) 35.5 Intake & Output: Intake and Output for Last 24 Hours 09/24/24 09/25/24 09/26/24 23:59 23:59 23:59 Intake Total 5480 / 5480 1550 / 1550 562.67 / 562.67 Output Total 1200 / 1200 2100 / 2700 4200 / 4200 Balance 4280 / 4280 -550 / -1150 -3637.33 / -3637.33 Lab / Micro Data 09/26/24 08:30 09/26/24 08:30 Labs: Laboratory Results - last 24 hr 09/25/24 14:00: Crossmatch See Detail 09/25/24 23:45: WBC 13.8 H, RBC 2.66 L, Hgb 7.7 L, Hct 24.2 L, MCV 91.0, MCH 28.9, MCHC 31.8 L, RDW Std Deviation 53.8 H, RDW Coeff of [place] 16.3 H, Plt Count 236, MPV 10.4, Neut % (Auto) Not Reportable, Absolute Neuts (auto) 12.7 H, Absolute Lymphs (auto) 0.55 L, Total Counted 100, Neutrophils % (Manual) 87 H, Band Neutrophils % 4, Lymphocytes % (Manual) 4 L, Monocytes % (Manual) 5, Platelet Estimate ADEQUATE, Anisocytosis 1+ 09/26/24 08:30: WBC 15.3 H, RBC 2.78 L, Hgb 8.1 L, Hct 25.5 L, MCV 91.7, MCH 29.1, MCHC 31.8 L, RDW Std Deviation 54.4 H, RDW Coeff of [place] 16.7 H, Plt Count 265, MPV 10.9, Neut % (Auto) Not Reportable, Absolute Neuts (auto) 12.7 H, Absolute Lymphs (auto) 1.53, Neutrophils % (Manual) 79 H, Band Neutrophils % 4, Lymphocytes % (Manual) 10 L, Monocytes % (Manual) 3, Eosinophils % (Manual) 1, Metamyelocytes % 3 H, Diff Path Review Reviewed, Polychromasia 2+, Anisocytosis 1+, Macrocytosis 1+, Sodium 150 H, Potassium 4.2, Chloride 124 H, Carbon Dioxide 25.0, Anion Gap 2 L, BUN 75 H, Creatinine 1.21, Estim Creat Clear Calc 62.69, Est GFR (MDRD) Af Amer 74, Est GFR (MDRD) Non-Af 61, BUN/Creatinine Ratio 62.0 H, Glucose 134 H, Calcium 8.5, Total Bilirubin 1.40 H, AST 68 H, ALT 58, Alkaline Phosphatase 49, Total Protein 5.2 L, Albumin 2.0 L, Globulin 3.2, Albumin/Globulin Ratio 0.6 L Micro: Microbiology 09/24/24 08:26 Blood Culture (Wb) - Anticubital Left Blood Culture - Preliminary No growth in 48 hours. 09/24/24 11:50 Urine Catheter - Little Urine Culture - Final Culture exhibits no growth. 09/20/24 20:00 Blood Culture (Wb) - Left Hand Blood Culture - Final No growth in 5 days. 09/20/24 20:05 Blood Culture (Wb) - Other Blood Culture - Final No growth in 5 days. 09/25/24 18:30 Gastric Fluid/Contents Gastric Occult Blood - Final Occult Blood Positive 09/20/24 23:10 Mucosa - Nasopharyngeal Respiratory Panel (PCR) - Final 09/20/24 18:20 Mucosa - Nose SARS-CoV-2, Influenza & RSV (PCR) - Final Radiography Diagnostic Testing: Radiology Impression KUB X-Ray 09/25/24 18:05 IMPRESSION: Feeding tube extends to the distal stomach or duodenum. Electronically Signed: Crow Reyes MD at 19:18 EST , Abdomen/Pelvis CT 09/25/24 22:25 IMPRESSION: Colonic diverticulosis. Small bowel obstruction. Feeding tube in position. Gallstone. Lower lung consolidation. Electronically Signed: Crow Reyes MD at 23:47 EST , Rhythm Strip Rhythm Strip: Sinus Tach Rate: 105 Ectopy: None Physical Exam Narrative alert Constitutional Narrative: Patient is alert but confused, he does not carry on a conversation with this examiner General Appearance: well kempt and well developed Orientation / Consciousness: awake HEENT normocephalic, head/scalp atraumatic and moist oral mucous membranes, NG tube in place Eyes PERRL, EOMs intact bilaterally and conjunctivae normal Neck supple, no JVD, thyroid normal and no carotid bruits General: trachea midline Resp normal respiratory effort, no retractions, no use of accessory muscles and clear to auscultation bilaterally Auscultation: Negative for rales, rhonchi or wheezes Cardio regular rate, regular rhythm, S1 normal heart sound, S2 normal heart sound, no murmurs, no rub and no gallops GI GI Narrative: Abdomen is distended and tympanic, bowel sounds are decreased Extremity no clubbing, cyanosis or edema Skin no rashes or lesions noted General Skin Exam: no breakdown Neuro CN's II-XII intact bilaterally, moves all extremities, no focal motor deficits and no sensory deficits noted Sensorium / Orientation: awake Psych Psych Narrative: Patient confused Assessment & Plan Assessment/Plan (1) Encephalopathy acute: (2) Shock: PLAN: Plan 1. Shock secondary to volume depletion and possible sepsis-patient's blood pressures responded to IV fluids, patient remains on meropenem, patient's blood and urine culture exhibits no growth, patient will continue meropenem to complete 7 days of therapy. #2 metabolic encephalopathy-secondary to acute illness including volume depletion and possible sepsis-continue to provide supportive care, patient is being seen by general surgery, small bowel follow-through was ordered today #3 acute kidney injury on a backdrop of chronic kidney disease stage IIIa-continue to monitor kidney functions, patient's creatinine was 1.21 today #4 acute anemia-etiology unclear, patient is on a PPI at this time, his hemoglobin this morning was 8.1, CBC will be rechecked tomorrow #5 debility secondary to multiple medical problems-PT and OT will see the patient #6 hypothyroidism-patient is on Synthroid #7 ileus-patient is being seen by general surgery Patient is a DNR CC arrest without intubation Total clinical time spent by myself addressing the patient's medical issues, reviewing all of his data, and collaborating with patient's care team: 35 minutes Charges/Coding Visit Charges Inpatient E&M: 29412 Subs Hosp L2
[2024-09-26] MEDS: 0.9 % NaCl (Sterile) Posiflush 10 mL IV (21:02)
[2024-09-27] VITALS (13 sets, daily range): BP systolic 112–158; BP diastolic 44–98; PULSE 71–91; RESP 16–20; TEMP 36.1–36.6; O2SAT 92–98; BMI 35.6
[2024-09-27] MEDS: Pantoprazole Sodium 80 MG in 0.9% Normal Saline (100mL Bag) 80 ML 10 MG CONT INF ×3 (00:08→22:06)
[2024-09-27] MEDS: LORazepam 2 MG/ML Syringe IV (01:23)
[2024-09-27] MEDS: 0.9 % NaCl (Sterile) Posiflush 10 mL IV ×2 (01:25→16:43)
[2024-09-27] MEDS: Dextrose 5%-Water (1000mL Bag) 1,000 ML 100 ML IV ×2 (02:02→13:04)
[2024-09-27] MEDS: Levothyroxine 100 MCG Tablet 200 MCG PO (04:56)
[2024-09-27 06:47] LABS: Hemoglobin 7.6 g/dL (13.0-16.5); Mean Corp Hgb Conc 30.4 g/dL (32-36); Mean Corpuscular Hgb 28.8 pg (27.0-32.0); Mean Corpuscular Volume 94.7 fL (80-94); Mean Platelet Vol. 10.8 fl (6.2-12.0); POSITIVE COUNT YES; POSITIVE MORPHOLOGY YES; Platelet Count 259 K/mm3 (150-450); RBC Distribution Width CV 17.1 % (11.6-14.6); RBC Distribution Width SD 56.7 fl (35.1-43.9); Red Blood Count 2.64 M/mm3 (4.6-6.2); White Blood Count 12.5 K/mm3 (4.4-11.0)
[2024-09-27] MEDS: Albuterol 2.5 MG/3 ML VIAL.NEB. INHALATION ×3 (06:48→19:23)
[2024-09-27] MEDS: Budesonide Respules 0.5 MG/2 ML AMPUL.NEB. INHALATION ×2 (06:48→19:23)
[2024-09-27 07:19] LABS: Anion Gap 4 (5-15); BUN 58 mg/dL (7-18); BUN/Creat Ratio 51.8 RATIO (10-20); Calcium,Total 8.4 mg/dL (8.5-10.1); Chloride 123 mmol/L (98-107); Creatinine, Serum 1.12 mg/dL (0.70-1.30); EST Glomerular Filtration Rate 67 mL/min (>60); Est Glom Filt Rate - Afr Amer 81 mL/min (>60); Estimated Creatinine Clearance 67.72 ml/min; Glucose 138 mg/dL (74-106); Sodium Level 151 mmol/L (136-145)
[2024-09-27 07:34] LABS: Differential Indicated MANUAL DIFF
--- NOTE | 2024-09-27 07:44 | PN.CC_ITS ---
Assessment & Plan Assessment/Plan (1) Hypotension: PLAN: Plan RECOMMENDATIONS: 1. Continue antimicrobials to complete 7 days of therapy. 2. Continue to hold Eliquis. 3. Monitor H&H and transfuse if hemoglobin drops below 7 g/dL. 4. Continue PPI therapy as ordered. 5. Continue D5W, given hypernatremia. 6. Will sign off from a critical care perspective. Please call with any additional questions. IMPRESSIONS: 1. Hypotension Resolved. Appears to be secondary to intravascular volume depletion. The patient did ultimately respond to IV fluid resuscitation and remains hemodynamically stable this morning. However, he does have underlying anemia, which has worsened over the course of his hospitalization. There are no overt signs of acute blood loss. Plan to continue to monitor H&H and transfuse if hemoglobin drops below 7 g/dL. The patient's Eliquis will remain on hold. In light of the fact that he has a left lower lobe consolidation on CT imaging, we will plan to continue empiric antibiotics to complete 7 days of therapy. 2. Small bowel obstruction Continue bowel rest with n.p.o. status and NG tube to suction. General surgery is following to assist with medical management. 3. Hypernatremia Continue D5W as ordered. 4. Acute on chronic kidney disease Resolved. Likely prerenal in etiology. Creatinine has improved from yesterday following additional fluid resuscitation. Continue to monitor urine output. No current indication for renal replacement therapy. 5. Metabolic encephalopathy Stable at this time. CT head demonstrated no acute findings. ABG was obtained and demonstrated no evidence of CO2 retention. TSH was within normal limits. 6. History of obesity/hypothyroidism/generalized debility/history of DVT/history of carotid disease/hypertension/hyperlipidemia Complicates care, management, recovery and prognosis. Continue to hold home lisinopril and Lasix. Given the patient's progressive anemia, agree with holding Eliquis. Physical therapy to work with the patient. This note was generated with [employer] dictation software. It may contain incorrect words, spelling, and punctuation that were not noted in checking the note before signing. Subjective Subjective The patient was seen and examined at the bedside this morning. Events from the last 24 hours have been reviewed. The patient is currently afebrile, hemodynamically stable and maintaining appropriate oxygen saturations on room air. The patient remains confused. He is currently documented to be overall net +3.2 L for the hospitalization. Hemoglobin this morning was noted to be 7.6 g/dL. Platelet count is within normal limits. The patient's sodium remains elevated at 151. Creatinine is within normal limits. Objective Data Objective Data The patient's most recent lab work, culture data and imaging studies have all been personally reviewed. Infectious workup has been unrevealing to date. Vital Signs: Vital Signs Temp Pulse Resp BP Pulse Ox O2 Del Method O2 Flow Rate 97.9 F 91 18 128/58 H 94 Room Air 2 09/27/24 03:17 09/27/24 06:49 09/27/24 06:49 09/27/24 03:17 09/27/24 06:49 09/27/24 06:49 09/25/24 06:00 FiO2 35 09/24/24 10:00 Oxygen Flow Rate (L/min) 2 Oxygen Delivery Method Room Air Weight: 262 lb 5.601 oz Body Mass Index (BMI) 35.6 Intake & Output: Intake and Output for Last 24 Hours 09/25/24 09/26/24 09/27/24 23:59 23:59 23:59 Intake Total 1550 / 1550 592.67 / 592.67 887 / 887 Output Total 2100 / 2700 5000 / 5000 1750 / 1750 Balance -550 / -1150 -4407.33 / -4407.33 -863 / -863 Lab / Micro Data Attestation: I reviewed the patient's lab results. 09/27/24 06:36 09/27/24 06:36 Labs: Laboratory Results - last 24 hr 09/25/24 14:00: Crossmatch See Detail 09/26/24 08:30: WBC 15.3 H, RBC 2.78 L, Hgb 8.1 L, Hct 25.5 L, MCV 91.7, MCH 29.1, MCHC 31.8 L, RDW Std Deviation 54.4 H, RDW Coeff of [place] 16.7 H, Plt Count 265, MPV 10.9, Neut % (Auto) Not Reportable, Absolute Neuts (auto) 12.7 H, Absolute Lymphs (auto) 1.53, Neutrophils % (Manual) 79 H, Band Neutrophils % 4, Lymphocytes % (Manual) 10 L, Monocytes % (Manual) 3, Eosinophils % (Manual) 1, M etamyelocytes % 3 H, Diff Path Review Reviewed, Polychromasia 2+, Anisocytosis 1+, Macrocytosis 1+, Sodium 150 H, Potassium 4.2, Chloride 124 H, Carbon Dioxide 25.0, Anion Gap 2 L, BUN 75 H, Creatinine 1.21, Estim Creat Clear Calc 62.69, Est GFR (MDRD) Af Amer 74, Est GFR (MDRD) Non-Af 61, BUN/Creatinine Ratio 62.0 H , Glucose 134 H, Calcium 8.5, Total Bilirubin 1.40 H, AST 68 H, ALT 58, Alkaline Phosphatase 49, Total Protein 5.2 L, Albumin 2.0 L, Globulin 3.2, A lbumin/Globulin Ratio 0.6 L 09/27/24 06:36: WBC 12.5 H, RBC 2.64 L, Hgb 7.6 L, Hct 25.0 L, MCV 94.7 H, MCH 28.8, MCHC 30.4 L, RDW Std Deviation 56.7 H, RDW Coeff of [place] 17.1 H, Plt Count 259, MPV 10.8, Neut % (Auto) Not Reportable, Sodium 151 H, Potassium 4.0, C hloride 123 H, Carbon Dioxide 24.0, Anion Gap 4 L, BUN 58 H, Creatinine 1.12, Estim Creat Clear Calc 67.72, Est GFR (MDRD) Af Amer 81, Est GFR (MDRD) Non-Af 67, BUN/Creatinine Ratio 51.8 H, Glucose 138 H, Calcium 8.4 L Micro: Microbiology 09/24/24 08:26 Blood Culture (Wb) - Anticubital Left Blood Culture - Preliminary No growth in 48 hours. 09/24/24 11:50 Urine Catheter - Little Urine Culture - Final Culture exhibits no growth. 09/20/24 20:00 Blood Culture (Wb) - Left Hand Blood Culture - Final No growth in 5 days. 09/20/24 20:05 Blood Culture (Wb) - Other Blood Culture - Final No growth in 5 days. 09/25/24 18:30 Gastric Fluid/Contents Gastric Occult Blood - Final Occult Blood Positive 09/20/24 23:10 Mucosa - Nasopharyngeal Respiratory Panel (PCR) - Final 09/20/24 18:20 Mucosa - Nose SARS-CoV-2, Influenza & RSV (PCR) - Final ABG Data ABG results: ABG 09/24/24 09:33 Specimen Type ART Sample Site R Radial pH 7.42 Bicarbonate Actual 20.3 L Total CO2 21 Base Excess -4 L O2 Saturation 100 H O2 % 80.0 ABG pCO2 31.5 L ABG pO2 236 H [place] Test N/A Respiration Rate 12 O2 Delivery Device BiPAP Vent Mode BiLevel POC PEEP 8 Radiography Diagnostic Testing: Radiology Impression KUB X-Ray 09/25/24 18:05 IMPRESSION: Feeding tube extends to the distal stomach or duodenum. Electronically Signed: Crow Reyes MD at 19:18 EST , Abdomen/Pelvis CT 09/25/24 22:25 IMPRESSION: Colonic diverticulosis. Small bowel obstruction. Feeding tube in position. Gallstone. Lower lung consolidation. Electronically Signed: Crow Reyes MD at 23:47 EST , Rhythm Strip Rhythm Strip: Sinus Tach Rate: 105 Ectopy: None Physical Exam Const alert and no apparent distress Constitutional Narrative: Remains confused. General Appearance: cooperative HEENT normocephalic and head/scalp atraumatic HEENT Narrative: Nasogastric tube in place. Eyes EOMs intact bilaterally, conjunctivae normal and no scleral icterus Neck supple General: trachea midline Chest inspection of chest normal Resp normal respiratory effort Auscultation: Negative for rales, rhonchi or wheezes Cardio regular rate and regular rhythm GI normal to inspection, nondistended, normoactive bowel sounds Extremity no clubbing, cyanosis or edema Skin no rashes or lesions noted Neuro CN's II-XII intact bilaterally, moves all extremities and no focal motor deficits Psych Mood & Affect: flat affect Charges/Coding Visit Charges Inpatient E&M: 31824 Subs Hosp L2
--- NOTE | 2024-09-27 08:31 | PN.SURG_ITS ---
Subjective Subjective Patient evaluated resting sideways in bed. Patient states he is comfortable. He is more alert today. He is unaware of the location he is currently in. He denies passing flatus or having a bowel movement over night. He denies feeling nauseated. He notes abdominal pressure. Objective Data Objective Data Vital Signs: Vital Signs Temp Pulse Resp BP Pulse Ox O2 Del Method O2 Flow Rate 96.9 F L 85 16 145/55 H 93 Room Air 2 09/27/24 08:13 09/27/24 08:13 09/27/24 08:13 09/27/24 08:13 09/27/24 08:13 09/27/24 08:13 09/25/24 06:00 FiO2 35 09/24/24 10:00 Oxygen Flow Rate (L/min) 2 Oxygen Delivery Method Room Air Weight: 262 lb 5.601 oz Body Mass Index (BMI) 35.6 Intake & Output: Intake and Output for Last 24 Hours 09/25/24 09/26/24 09/27/24 23:59 23:59 23:59 Intake Total 1550 / 1550 592.67 / 592.67 887 / 887 Output Total 2100 / 2700 5000 / 5000 1750 / 1750 Balance -550 / -1150 -4407.33 / -4407.33 -863 / -863 Lab / Micro Data 09/27/24 06:36 09/27/24 06:36 Labs: Laboratory Results - last 24 hr 09/25/24 14:00: Crossmatch See Detail 09/26/24 08:30: WBC 15.3 H, RBC 2.78 L, Hgb 8.1 L, Hct 25.5 L, MCV 91.7, MCH 29.1, MCHC 31.8 L, RDW Std Deviation 54.4 H, RDW Coeff of [place] 16.7 H, Plt Count 265, MPV 10.9, Neut % (Auto) Not Reportable, Absolute Neuts (auto) 12.7 H, Absolute Lymphs (auto) 1.53, Neutrophils % (Manual) 79 H, Band Neutrophils % 4, Lymphocytes % (Manual) 10 L, Monocytes % (Manual) 3, Eosinophils % (Manual) 1, M etamyelocytes % 3 H, Diff Path Review Reviewed, Polychromasia 2+, Anisocytosis 1+, Macrocytosis 1+, Sodium 150 H, Potassium 4.2, Chloride 124 H, Carbon Dioxide 25.0, Anion Gap 2 L, BUN 75 H, Creatinine 1.21, Estim Creat Clear Calc 62.69, Est GFR (MDRD) Af Amer 74, Est GFR (MDRD) Non-Af 61, BUN/Creatinine Ratio 62.0 H , Glucose 134 H, Calcium 8.5, Total Bilirubin 1.40 H, AST 68 H, ALT 58, Alkaline Phosphatase 49, Total Protein 5.2 L, Albumin 2.0 L, Globulin 3.2, A lbumin/Globulin Ratio 0.6 L 09/27/24 06:36: WBC 12.5 H, RBC 2.64 L, Hgb 7.6 L, Hct 25.0 L, MCV 94.7 H, MCH 28.8, MCHC 30.4 L, RDW Std Deviation 56.7 H, RDW Coeff of [place] 17.1 H, Plt Count 259, MPV 10.8, Neut % (Auto) Not Reportable, Sodium 151 H, Potassium 4.0, C hloride 123 H, Carbon Dioxide 24.0, Anion Gap 4 L, BUN 58 H, Creatinine 1.12, Estim Creat Clear Calc 67.72, Est GFR (MDRD) Af Amer 81, Est GFR (MDRD) Non-Af 67, BUN/Creatinine Ratio 51.8 H, Glucose 138 H, Calcium 8.4 L Micro: Microbiology 09/24/24 08:26 Blood Culture (Wb) - Anticubital Left Blood Culture - Preliminary No growth in 48 hours. 09/24/24 11:50 Urine Catheter - Little Urine Culture - Final Culture exhibits no growth. 09/20/24 20:00 Blood Culture (Wb) - Left Hand Blood Culture - Final No growth in 5 days. 09/20/24 20:05 Blood Culture (Wb) - Other Blood Culture - Final No growth in 5 days. 09/25/24 18:30 Gastric Fluid/Contents Gastric Occult Blood - Final Occult Blood Positive 09/20/24 23:10 Mucosa - Nasopharyngeal Respiratory Panel (PCR) - Final 09/20/24 18:20 Mucosa - Nose SARS-CoV-2, Influenza & RSV (PCR) - Final Radiography Diagnostic Testing: Radiology Impression Small Bowel X-Ray 09/26/24 10:33 IMPRESSION: Findings suggesting small bowel ileus. Electronically Signed: Erick Hudson MD at 7:52 EST , Rhythm Strip Rhythm Strip: Sinus Tach Rate: 105 Ectopy: None Physical Exam GI GI Narrative: Abdomen- soft, obese. Generalized mild tenderness. Hypoactive bowel sounds. Assessment & Plan Assessment/Plan (1) Small bowel obstruction: PLAN: I am following this patient in conjunction with Dr. Justice. She has independently evaluated this patient. Small bowel follow-through was completed yesterday with a final reading of small bowel ileus Repeat KUB was ordered for today to continue to see where contrast is located Recommend rectal suppository and lactulose from above to assist with bowel function Patient is more alert today however remains confused NG was placed on continuous suction over night with 200 cc over the last few hours in output. Output appears more bilious. No surgical intervention planned at this time We will continue to monitor this patient Charges/Coding Visit Charges Inpatient E&M: 02727 Subs Hosp L1
[2024-09-27 08:56] LABS: Total Cells Counted 100 (MANUAL DIFF)
[2024-09-27 08:57] LABS: Eosinophil 2 % (0-5); Lymphocyte 9 % (19-41); Monocyte 4 % (0-10); Myelocyte 1 % (0-0); Nucleated Red Bld Cells,Manual 3 % (0-5)
[2024-09-27 08:58] LABS: Metamyelocyte 2 % (0-1); Neutrophil-Segmented 82 % (47-70)
[2024-09-27 09:00] LABS: Absolute Lymphocyte Count 1.13 X10^3/uL (0.83-4.51); Absolute Neutrophil Count 10.3 X10^3/uL (2.0-7.7)
[2024-09-27] MEDS: Bisacodyl 10 MG Suppository RC ×3 (09:41→20:30)
[2024-09-27] MEDS: Lactulose 20 GM/30 ML UDC PO (09:41)
[2024-09-27] MEDS: Meropenem 1 GM in 0.9% Normal Saline (100mL MB+) 100 ML IV ×2 (09:55→20:27)
--- NOTE | 2024-09-27 10:11 | RAD_ITS ---
INDICATION: small bowel obstruction EXAMINATION/TECHNIQUE: X-RAY - XR Abdomen 1 View COMPARISON: September 26, 2024 FINDINGS: BOWEL GAS PATTERN: There is an enteric tube in place terminating within the expected region of the proximal duodenum. There are contrast filled mildly dilated loops of small bowel within the right lower quadrant. There is persistent contrast within the small bowel. The transverse colon is dilated and gas-filled. FREE AIR: Not assessed on a single supine view. ORGANOMEGALY: Not seen. CALCIFICATIONS: No abnormal calcifications observed. LOWER CHEST: No acute pathology. BONES AND SOFT TISSUES: No acute pathology. RAD/Abdomen Single View IMPRESSION: Mildly dilated loops of small bowel, may be secondary to an ileus. Dilated gas-filled transverse colon, may reflect a colonic ileus. Electronically Signed: Ying Dubon MD at 14:46 EST ,
[2024-09-27 13:49] LABS: Pathologist Review Reviewed
[2024-09-27] MEDS: Haloperidol Lactate 5 MG/ML Vial IV ×2 (16:42→22:08)
--- NOTE | 2024-09-27 17:41 | PN.HOSP_ITS ---
Reason for Visit Reason for Visit: Diagnoses Encephalopathy, unspecified (09/20/24) Hypotension, unspecified (09/20/24) Unspecified intestinal obstruction, unspecified as to partial versus complete obstruction (09/20/24) Acute kidney failure, unspecified (09/20/24) Weakness (09/20/24) Shock, unspecified (09/20/24) Unspecified fall, initial encounter (09/20/24) Subjective Subjective Patient was seen and examined today, he appears agitated at times. Patient still has an ileus. Patient remains confused Objective Data Objective Data Vital Signs: Vital Signs Temp Pulse Resp BP Pulse Ox O2 Del Method O2 Flow Rate 97.2 F L 78 18 138/98 H 92 Room Air 2 09/27/24 16:00 09/27/24 16:00 09/27/24 16:00 09/27/24 16:00 09/27/24 16:00 09/27/24 16:00 09/25/24 06:00 FiO2 35 09/24/24 10:00 Oxygen Flow Rate (L/min) 2 Oxygen Delivery Method Room Air Weight: 119 kg Body Mass Index (BMI) 35.6 Intake & Output: Intake and Output for Last 24 Hours 09/25/24 09/26/24 09/27/24 23:59 23:59 23:59 Intake Total 1550 / 1550 592.67 / 592.67 2107.00 / 2107.00 Output Total 2100 / 2700 5000 / 5000 2950 / 2950 Balance -550 / -1150 -4407.33 / -4407.33 -843.00 / -843.00 Lab / Micro Data 09/27/24 06:36 09/27/24 06:36 Labs: Laboratory Results - last 24 hr 09/25/24 14:00: Crossmatch See Detail 09/27/24 06:36: WBC 12.5 H, RBC 2.64 L, Hgb 7.6 L, Hct 25.0 L, MCV 94.7 H, MCH 28.8, MCHC 30.4 L, RDW Std Deviation 56.7 H, RDW Coeff of [place] 17.1 H, Plt Count 259, MPV 10.8, Neut % (Auto) Not Reportable, Absolute Neuts (auto) 10.3 H, Absolute Lymphs (auto) 1.13, Total Counted 100, Neutrophils % (Manual) 82 H, L ymphocytes % (Manual) 9 L, Monocytes % (Manual) 4, Eosinophils % (Manual) 2, M etamyelocytes % 2 H, Myelocytes % 1 H, Nucleated RBCs/100 WBC 3, Diff Path Review Reviewed, Sodium 151 H, Potassium 4.0, Chloride 123 H, Carbon Dioxide 24.0, Anion Gap 4 L, BUN 58 H, Creatinine 1.12, Estim Creat Clear Calc 67.72, Est GFR (MDRD) Af Amer 81, Est GFR (MDRD) Non-Af 67, BUN/Creatinine Ratio 51.8 H , Glucose 138 H, Calcium 8.4 L Micro: Microbiology 09/24/24 08:26 Blood Culture (Wb) - Anticubital Left Blood Culture - Preliminary No growth in 48 hours. 09/24/24 11:50 Urine Catheter - Little Urine Culture - Final Culture exhibits no growth. 09/20/24 20:00 Blood Culture (Wb) - Left Hand Blood Culture - Final No growth in 5 days. 09/20/24 20:05 Blood Culture (Wb) - Other Blood Culture - Final No growth in 5 days. 09/25/24 18:30 Gastric Fluid/Contents Gastric Occult Blood - Final Occult Blood Positive 09/20/24 23:10 Mucosa - Nasopharyngeal Respiratory Panel (PCR) - Final 09/20/24 18:20 Mucosa - Nose SARS-CoV-2, Influenza & RSV (PCR) - Final Radiography Diagnostic Testing: Radiology Impression Small Bowel X-Ray 09/26/24 10:33 IMPRESSION: Findings suggesting small bowel ileus. Electronically Signed: Erick Hudson MD at 7:52 EST , KUB X-Ray 09/27/24 10:11 IMPRESSION: Mildly dilated loops of small bowel, may be secondary to an ileus. Dilated gas-filled transverse colon, may reflect a colonic ileus. Electronically Signed: Ying Dubon MD at 14:46 EST , Rhythm Strip Rhythm Strip: Sinus Tach Rate: 105 Ectopy: None Physical Exam Narrative alert Constitutional Narrative: Patient is alert but confused, he does not carry on a conversation with this examiner General Appearance: well kempt and well developed Orientation / Consciousness: awake, confused HEENT normocephalic, head/scalp atraumatic and moist oral mucous membranes, NG tube in place Eyes PERRL, EOMs intact bilaterally and conjunctivae normal Neck supple, no JVD, thyroid normal and no carotid bruits General: trachea midline Resp normal respiratory effort, no retractions, no use of accessory muscles and clear to auscultation bilaterally Auscultation: Negative for rales, rhonchi or wheezes Cardio regular rate, regular rhythm, S1 normal heart sound, S2 normal heart sound, no murmurs, no rub and no gallops GI GI Narrative: Abdomen is distended and tympanic, bowel sounds are decreased Extremity no clubbing, cyanosis or edema Skin no rashes or lesions noted General Skin Exam: no breakdown Neuro CN's II-XII intact bilaterally, moves all extremities, no focal motor deficits and no sensory deficits noted Sensorium / Orientation: awake Psych Psych Narrative: Patient confused Assessment & Plan Assessment/Plan (1) Ileus: (2) Encephalopathy acute: (3) Shock: PLAN: Plan 1. Shock secondary to volume depletion and possible sepsis-patient's blood pressures responded to IV fluids, patient remains on meropenem, patient's blood and urine culture exhibits no growth, patient will continue meropenem to complete 7 days of therapy. #2 metabolic encephalopathy-secondary to acute illness including volume depletion and possible sepsis-continue to provide supportive care, patient is being seen by general surgery, small bowel follow-through was ordered today #3 acute kidney injury on a backdrop of chronic kidney disease stage IIIa- continue to monitor kidney functions, patient's creatinine was 1.12 today #4 acute anemia-etiology unclear, patient is on a PPI at this time, his hemoglobin this morning was 7.6, CBC will be rechecked tomorrow #5 debility secondary to multiple medical problems-PT and OT will see the patient #6 hypothyroidism-patient is on Synthroid #7 ileus-patient is being seen by general surgery, patient has an NG tube in Patient is a DNR CC arrest without intubation Total clinical time spent by myself addressing the patient's medical issues, reviewing all of his data, and collaborating with patient's care team: 35 minutes Charges/Coding Visit Charges Inpatient E&M: 68427 Subs Hosp L2
[2024-09-27] MEDS: 0.9% Saline Lock 10 ML Syringe IV (22:09)
[2024-09-28] VITALS (29 sets, daily range): BP systolic 101–145; BP diastolic 33–84; PULSE 63–96; RESP 12–24; TEMP 35.9–37.4; O2SAT 91–100; BMI 34.4
[2024-09-28] MEDS: Dextrose 5%-Water (1000mL Bag) 1,000 ML 100 ML IV ×3 (00:07→13:38)
[2024-09-28 03:46] LABS: Absolute Lymphocyte Count 1.11 X10^3/uL (0.83-4.51); Basophil# 0.02 X10^3/uL; Basophil% 0.2 % (0-1); Eosinophil# 0.18 X10^3/uL; Eosinophils% 1.9 % (0-5); Hematocrit 21.4 % (40-54); Hemoglobin 6.5 g/dL (13.0-16.5); Lymphocyte # 1.11 X10^3/ul (0.83-4.51); Lymphocyte % 11.5 % (19-41); Mean Corp Hgb Conc 30.4 g/dL (32-36); Mean Corpuscular Hgb 29.5 pg (27.0-32.0); Mean Corpuscular Volume 97.3 fL (80-94); Mean Platelet Vol. 10.7 fl (6.2-12.0); Monocyte# 0.95 X10^3/uL; Monocyte% 9.9 % (0-10); NRBC Flagged by Analyzer 0.8 % (0-5); Neutrophil % 72.8 % (47-70); Platelet Count 235 K/mm3 (150-450); RBC Distribution Width CV 17.1 % (11.6-14.6); RBC Distribution Width SD 55.7 fl (35.1-43.9); White Blood Count 9.6 K/mm3 (4.4-11.0)
[2024-09-28 04:21] LABS: Anion Gap 6 (5-15); BUN 45 mg/dL (7-18); BUN/Creat Ratio 43.3 RATIO (10-20); Calcium,Total 7.9 mg/dL (8.5-10.1); Chloride 120 mmol/L (98-107); Creatinine, Serum 1.04 mg/dL (0.70-1.30); EST Glomerular Filtration Rate 73 mL/min (>60); Est Glom Filt Rate - Afr Amer 88 mL/min (>60); Estimated Creatinine Clearance 72.93 ml/min; Glucose 153 mg/dL (74-106); Potassium 3.8 mmol/L (3.5-5.1); Sodium Level 149 mmol/L (136-145)
--- NOTE | 2024-09-28 05:20 | RAD_ITS ---
INDICATION: ileus EXAMINATION/TECHNIQUE: X-RAY - XR Abdomen 1 View COMPARISON: Prior study dated: 09/27/2024 FINDINGS: FINDINGS: AP supine view. Tip of the nasogastric tube is in the unchanged likely in the proximal duodenum. Mildly dilated small bowel slightly decreased compared to the prior. Colon is not dilated. Sensitivity for free air limited on supine view. The lung bases are not well assessed. RAD/Abdomen Single View (Portable) IMPRESSION: Slightly decreased small bowel dilatation. Electronically Signed: Pat Murguia MD at 6:36 EST ,
[2024-09-28] MEDS: Levothyroxine 100 MCG Tablet 200 MCG PO (06:16)
[2024-09-28] MEDS: Meropenem 1 GM in 0.9% Normal Saline (100mL MB+) 100 ML IV ×3 (06:16→20:37)
[2024-09-28] MEDS: Budesonide Respules 0.5 MG/2 ML AMPUL.NEB. INHALATION ×2 (06:44→18:56)
[2024-09-28] MEDS: Albuterol 2.5 MG/3 ML VIAL.NEB. INHALATION ×2 (06:44→12:47)
[2024-09-28] MEDS: Aspirin E.C. 81 MG Tablet PO (07:54)
--- NOTE | 2024-09-28 08:14 | PN.SURG_ITS ---
Subjective Subjective Patient has been receiving Dulcolax suppositories as he does not hold in the enemas well line having some small results with that. However not much is coming out of the NG. Today's x-ray does appear that some the stool from the right colon has moved some but is more difficult to read with 3 pictures. Objective Data Objective Data Vital Signs: Vital Signs Temp Pulse Resp BP Pulse Ox O2 Del Method O2 Flow Rate 97.5 F L 94 18 104/33 L 98 Room Air 15 09/28/24 06:00 09/28/24 08:00 09/28/24 08:00 09/28/24 08:00 09/28/24 08:00 09/28/24 08:00 09/28/24 06:46 FiO2 35 09/24/24 10:00 Oxygen Flow Rate (L/min) 15 Oxygen Delivery Method Room Air Weight: 254 lb 6.615 oz Body Mass Index (BMI) 34.4 Intake & Output: Intake and Output for Last 24 Hours 09/26/24 09/27/24 09/28/24 23:59 23:59 23:59 Intake Total 592.67 / 592.67 2207.00 / 2207.00 1733.33 / 1733.33 Output Total 5000 / 5000 2950 / 3300 475 / 475 Balance -4407.33 / -4407.33 -743.00 / -1093.00 1258.33 / 1258.33 Lab / Micro Data 09/28/24 03:14 09/28/24 03:14 Labs: Laboratory Results - last 24 hr 09/25/24 14:00: Crossmatch See Detail 09/27/24 06:36: Absolute Neuts (auto) 10.3 H, Absolute Lymphs (auto) 1.13, Total Counted 100, Neutrophils % (Manual) 82 H, Lymphocytes % (Manual) 9 L, Monocytes % (Manual) 4, Eosinophils % (Manual) 2, Metamyelocytes % 2 H, Myelocytes % 1 H, Nucleated RBCs/100 WBC 3, Diff Path Review Reviewed 09/28/24 03:14: WBC 9.6, RBC 2.20 L, Hgb 6.5 L, Hct 21.4 L, MCV 97.3 H, MCH 29.5, MCHC 30.4 L, RDW Std Deviation 55.7 H, RDW Coeff of [place] 17.1 H, Plt Count 235, MPV 10.7, Immature Gran % (Auto) 3.700 H, Neut % (Auto) 72.8 H, Lymph % (Auto) 11.5 L, Coleman % (Auto) 9.9, Eos % (Auto) 1.9, Baso % (Auto) 0.2, Absolute Neuts (auto) 7.0, Absolute Lymphs (auto) 1.11, Nucleated RBC % 0.8, Sodium 149 H , Potassium 3.8, Chloride 120 H, Carbon Dioxide 23.0, Anion Gap 6, BUN 45 H, Creatinine 1.04, Estim Creat Clear Calc 72.93, Est GFR (MDRD) Af Amer 88, Est GFR (MDRD) Non-Af 73, BUN/Creatinine Ratio 43.3 H, Glucose 153 H, Calcium 7.9 L 09/28/24 06:55: Blood Type Cancelled, Antibody Screen Cancelled, Crossmatch See Detail 09/28/24 07:45: Crossmatch See Detail Micro: Microbiology 09/24/24 08:26 Blood Culture (Wb) - Anticubital Left Blood Culture - Preliminary No growth in 48 hours. 09/24/24 11:50 Urine Catheter - Little Urine Culture - Final Culture exhibits no growth. 09/20/24 20:00 Blood Culture (Wb) - Left Hand Blood Culture - Final No growth in 5 days. 09/20/24 20:05 Blood Culture (Wb) - Other Blood Culture - Final No growth in 5 days. 09/25/24 18:30 Gastric Fluid/Contents Gastric Occult Blood - Final Occult Blood Positive 09/20/24 23:10 Mucosa - Nasopharyngeal Respiratory Panel (PCR) - Final 09/20/24 18:20 Mucosa - Nose SARS-CoV-2, Influenza & RSV (PCR) - Final Radiography Diagnostic Testing: Radiology Impression KUB X-Ray 09/27/24 10:11 IMPRESSION: Mildly dilated loops of small bowel, may be secondary to an ileus. Dilated gas-filled transverse colon, may reflect a colonic ileus. Electronically Signed: Ying Dubon MD at 14:46 EST , KUB X-Ray 09/28/24 05:20 IMPRESSION: Slightly decreased small bowel dilatation. Electronically Signed: Pat Murguia MD at 6:36 EST , Rhythm Strip Rhythm Strip: Sinus Tach Rate: 105 Ectopy: None Physical Exam Const oriented x3 and no apparent distress Resp normal respiratory effort GI soft to palpation and non-tender Inspection: abdominal distention Assessment & Plan Assessment/Plan (1) Small bowel obstruction: PLAN: Will try lactulose enema if it patient is able to hold it or will do some more suppositories. Patient does not have much of his NG overnight however is only having small amounts of bowel function. WBC is within normal limits on meropenem. Diane Justice M.D. Pager: [phone] [facility] [address] [place] [address], [address] [place] [address] Office: [phone]
[2024-09-28] MEDS: Pantoprazole Sodium 80 MG in 0.9% Normal Saline (100mL Bag) 80 ML 10 MG CONT INF ×2 (09:22→20:36)
[2024-09-28] MEDS: Haloperidol Lactate 5 MG/ML Vial IV (10:12)
--- NOTE | 2024-09-28 12:42 | CASEMGMT ---
Social Work SW spoke with pt dgt Isabela to discuss discharge plan. SW updated that pt is not medically ready for discharge at this time. 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 Pt dgt is understanding and requesting addtional lists of other areas. List from the careport guide generated and emailed to pt dgt. Dgt aware to have multiple choices ready by Tuesday and agreeable. SW will followup on Tuesday. KIKI Walton
[2024-09-28 13:46] LABS: Absolute Lymphocyte Count 1.06 X10^3/uL (0.83-4.51); Absolute Neutrophil Count 7.2 X10^3/uL (2.0-7.7); Basophil# 0.02 X10^3/uL; Basophil% 0.2 % (0-1); Eosinophil# 0.26 X10^3/uL; Eosinophils% 2.7 % (0-5); Hemoglobin 7.1 g/dL (13.0-16.5); Lymphocyte # 1.06 X10^3/ul (0.83-4.51); Lymphocyte % 11.2 % (19-41); Mean Corp Hgb Conc 30.9 g/dL (32-36); Mean Corpuscular Hgb 29.2 pg (27.0-32.0); Mean Corpuscular Volume 94.7 fL (80-94); Mean Platelet Vol. 11.1 fl (6.2-12.0); Monocyte# 0.63 X10^3/uL; Monocyte% 6.6 % (0-10); NRBC Flagged by Analyzer 0.7 % (0-5); Neutrophil # 7.16 X10^3/uL (2.7-7.7); Neutrophil % 75.4 % (47-70); Platelet Count 221 K/mm3 (150-450); RBC Distribution Width CV 17.4 % (11.6-14.6); RBC Distribution Width SD 56.6 fl (35.1-43.9); Red Blood Count 2.43 M/mm3 (4.6-6.2); White Blood Count 9.5 K/mm3 (4.4-11.0)
[2024-09-28] MEDS: Bisacodyl 10 MG Suppository RC (18:15)
--- NOTE | 2024-09-28 18:23 | PN.HOSP_ITS ---
Reason for Visit Reason for Visit: Diagnoses Encephalopathy, unspecified (09/20/24) Hypotension, unspecified (09/20/24) Unspecified intestinal obstruction, unspecified as to partial versus complete obstruction (09/20/24) Ileus, unspecified (09/20/24) Acute kidney failure, unspecified (09/20/24) Weakness (09/20/24) Shock, unspecified (09/20/24) Unspecified fall, initial encounter (09/20/24) Subjective Subjective Patient was seen and examined today, he received 1 unit of packed red blood cells due to hemoglobin of 6.5. Patient's hemoglobin was 7.1 after transfusion. Patient still has a persistent ileus, I have elected to place lactulose down his NG tube and placed him on IV Reglan. General surgery is participating in his care. Patient was alert today and told me that he knew he was in the hospital. This is a slight improvement from his mental status during this admission. Objective Data Objective Data Vital Signs: Vital Signs Temp Pulse Resp BP Pulse Ox O2 Del Method O2 Flow Rate 97.8 F 96 24 H 130/44 H 94 Room Air 15 09/28/24 16:00 09/28/24 16:00 09/28/24 16:00 09/28/24 16:00 09/28/24 16:00 09/28/24 16:00 09/28/24 06:46 FiO2 35 09/24/24 10:00 Oxygen Flow Rate (L/min) 15 Oxygen Delivery Method Room Air Weight: 115.4 kg Body Mass Index (BMI) 34.4 Intake & Output: Intake and Output for Last 24 Hours 09/26/24 09/27/24 09/28/24 23:59 23:59 23:59 Intake Total 592.67 / 592.67 2207.00 / 2207.00 3491.66 / 3491.66 Output Total 5000 / 5000 2950 / 3300 725 / 725 Balance -4407.33 / -4407.33 -743.00 / -1093.00 2766.66 / 2766.66 Lab / Micro Data 09/28/24 13:35 09/28/24 03:14 Labs: Laboratory Results - last 24 hr 09/28/24 03:14: WBC 9.6, RBC 2.20 L, Hgb 6.5 L, Hct 21.4 L, MCV 97.3 H, MCH 29.5, MCHC 30.4 L, RDW Std Deviation 55.7 H, RDW Coeff of [place] 17.1 H, Plt Count 235, MPV 10.7, Immature Gran % (Auto) 3.700 H, Neut % (Auto) 72.8 H, Lymph % (Auto) 11.5 L, [place] % (Auto) 9.9, Eos % (Auto) 1.9, Baso % (Auto) 0.2, Absolute Neuts (auto) 7.0, Absolute Lymphs (auto) 1.11, Nucleated RBC % 0.8, Sodium 149 H , Potassium 3.8, Chloride 120 H, Carbon Dioxide 23.0, Anion Gap 6, BUN 45 H, Creatinine 1.04, Estim Creat Clear Calc 72.93, Est GFR (MDRD) Af Amer 88, Est GFR (MDRD) Non-Af 73, BUN/Creatinine Ratio 43.3 H, Glucose 153 H, Calcium 7.9 L 09/28/24 06:55: Blood Type Cancelled, Antibody Screen Cancelled, Crossmatch See Detail 09/28/24 07:45: Blood Type A NEGATIVE, Antibody Screen NEGATIVE, Crossmatch See Detail 09/28/24 13:35: WBC 9.5, RBC 2.43 L, Hgb 7.1 L, Hct 23.0 L, MCV 94.7 H, MCH 29.2, MCHC 30.9 L, RDW Std Deviation 56.6 H, RDW Coeff of [place] 17.4 H, Plt Count 221, MPV 11.1, Immature Gran % (Auto) 3.900 H, Neut % (Auto) 75.4 H, Lymph % (Auto) 11.2 L, [place] % (Auto) 6.6, Eos % (Auto) 2.7, Baso % (Auto) 0.2, Absolute Neuts (auto) 7.2, Absolute Lymphs (auto) 1.06, Nucleated RBC % 0.7 Micro: Microbiology 09/24/24 08:26 Blood Culture (Wb) - Anticubital Left Blood Culture - Preliminary No growth in 48 hours. 09/24/24 11:50 Urine Catheter - Little Urine Culture - Final Culture exhibits no growth. 09/20/24 20:00 Blood Culture (Wb) - Left Hand Blood Culture - Final No growth in 5 days. 09/20/24 20:05 Blood Culture (Wb) - Other Blood Culture - Final No growth in 5 days. 09/25/24 18:30 Gastric Fluid/Contents Gastric Occult Blood - Final Occult Blood Positive 09/20/24 23:10 Mucosa - Nasopharyngeal Respiratory Panel (PCR) - Final 09/20/24 18:20 Mucosa - Nose SARS-CoV-2, Influenza & RSV (PCR) - Final Radiography Diagnostic Testing: Radiology Impression KUB X-Ray 09/28/24 05:20 IMPRESSION: Slightly decreased small bowel dilatation. Electronically Signed: Pat Murguia MD at 6:36 EST , Rhythm Strip Rhythm Strip: Sinus Tach Rate: 105 Ectopy: None Physical Exam Narrative alert Constitutional Narrative: Patient is alert but confused, patient is able to tell me he is in the hospital and he was oriented as to self General Appearance: well kempt and well developed Orientation / Consciousness: awake, confused HEENT normocephalic, head/scalp atraumatic and moist oral mucous membranes, NG tube in place Eyes PERRL, EOMs intact bilaterally and conjunctivae normal Neck supple, no JVD, thyroid normal and no carotid bruits General: trachea midline Resp normal respiratory effort, no retractions, no use of accessory muscles and clear to auscultation bilaterally Auscultation: Negative for rales, rhonchi or wheezes Cardio regular rate, regular rhythm, S1 normal heart sound, S2 normal heart sound, no murmurs, no rub and no gallops GI GI Narrative: Abdomen is distended and tympanic, bowel sounds are decreased Extremity no clubbing, cyanosis or edema Skin no rashes or lesions noted General Skin Exam: no breakdown Neuro CN's II-XII intact bilaterally, moves all extremities, no focal motor deficits and no sensory deficits noted Sensorium / Orientation: awake, oriented just to self and place Psych Psych Narrative: Patient confused, oriented to self and place Assessment & Plan Assessment/Plan (1) Ileus: (2) Encephalopathy acute: (3) Shock: PLAN: Plan 1. Shock secondary to volume depletion and possible sepsis-patient's blood pressures responded to IV fluids, patient remains on meropenem, patient's blood and urine culture exhibits no growth, patient will continue meropenem to complete 7 days of therapy-this is through 09/30/2024 #2 metabolic encephalopathy-secondary to acute illness including volume depletion and possible sepsis-continue to provide supportive care, patient is oriented x 2 today #3 acute kidney injury on a backdrop of chronic kidney disease stage IIIa- continue to monitor kidney functions, patient's creatinine was 1.04 today #4 acute anemia-etiology unclear, patient is on a PPI at this time, his hemoglobin this morning was 6.5, subsequently his hemoglobin was repeated and it was 7.1. I have elected to transfuse 1 more unit of packed red blood cells, CBC will be rechecked tomorrow, the exact cause of his anemia is unknown but felt to be possibly GI in origin. #5 debility secondary to multiple medical problems-PT and OT will see the patient #6 hypothyroidism-patient is on Synthroid IV #7 ileus-patient is being seen by general surgery, patient has an NG tube in Patient is a DNR CC arrest without intubation I talked with Amalia Yen (daughter) by phone today, we will continue to try to get his ileus resolved and see if he improves his mental status. Total clinical time spent by myself addressing the patient's medical issues, reviewing all of his data, and collaborating with patient's care team: 35 minutes Charges/Coding Visit Charges Inpatient E&M: 83123 Subs Hosp L2
[2024-09-28] MEDS: Lactulose 20 GM/30 ML UDC 30 GM GT (20:36)
[2024-09-28] MEDS: Dextrose 5%-Water (1000mL Bag) 1,000 ML 150 ML IV (20:36)
[2024-09-28] MEDS: 0.9% Saline Lock 10 ML Syringe IV (22:40)
[2024-09-28] MEDS: DiphenhydrAMINE 50 MG/ML Syringe 25 MG IV (22:40)
--- NOTE | 2024-09-28 23:07 | NURSING ---
Addendum entered by Alyce Ware 09/28/24 23:18: Pt received a total of 310cc of PRBC out of 500cc, the ramining blood was taken by blood bank staff for further testing. Original Note: 2225- RN to bedside to check on PRBC infusion. Pt w/ new onset erythema to face and neck, diaphoretic and SOB. This RN verified w/ other floor RN that patient was having a transfusion reaction. Transfusion stopped at 2228 and disconnected from pt. T 99.4, HR in 90s, BP 145/50. Arabella Picektt RN stayed bedside w/ patient while this RN paged Dr. Cordero @ 2230. Dr. Cordero gave a verbal order to this RN for 25 mg IV benadryl IV stat and 25mg Benadryl IV Q4H PRN and stated he would come to floor to check on pt. This RN then contacted blood bank and lab at 2232 to inform them of transfusion reaction, was told the blood bank employee would be up. RN returned to bedside w/ Benadryl. Pt reassessed. 2235 pt vitals improved and temp to 99.1F. Pt continued to report he felt very hot. Blood Bank staff to bedside at 5. Urine collected by this RN and given to blood bank staff for further testing. Pt temperature 98.0 at this time and BP 119/47. Transfusion reaction paperwork and documentation completed by this RN.
[2024-09-28] MEDS: Metoclopramide 10 MG/2 ML Vial 5 MG IV (23:28)
[2024-09-29] VITALS (20 sets, daily range): BP systolic 101–159; BP diastolic 36–93; PULSE 78–93; RESP 16–24; TEMP 36.6–37.6; O2SAT 88–96; BMI 34.9
[2024-09-29 00:05] LABS: Color, Urine- Transfusion RXN Yellow (Yellow)
[2024-09-29 00:16] LABS: Occult Blood-Urine Supernatant 2+ (Negative)
[2024-09-29 00:19] LABS: TXN RXN Red Blood Cells-Urine 0-5 SEEN /hpf
[2024-09-29] MEDS: Metoclopramide 10 MG/2 ML Vial 5 MG IV ×3 (05:11→18:53)
[2024-09-29] MEDS: 0.9% Saline Lock 10 ML Syringe IV (05:12)
[2024-09-29] MEDS: Meropenem 1 GM in 0.9% Normal Saline (100mL MB+) 100 ML IV ×3 (05:12→21:55)
[2024-09-29] MEDS: Dextrose 5%-Water (1000mL Bag) 1,000 ML 150 ML IV ×3 (05:12→20:32)
[2024-09-29] MEDS: Pantoprazole Sodium 80 MG in 0.9% Normal Saline (100mL Bag) 80 ML 10 MG CONT INF ×2 (06:16→16:09)
--- NOTE | 2024-09-29 06:40 | RAD_ITS ---
STUDY: X-RAY - ABDOMEN/PELVIS REASON FOR EXAM: Male, 83 years old. sbo vs ileus TECHNIQUE: 4 AP supine of the abdomen and pelvis. COMPARISON: Abdominal x-ray dated September 28, 2024. CT of abdomen and pelvis dated September 25, 2024 FINDINGS: Normal visualized lung bases. 1. Contrast is seen in the distal ileum at the ileocolic junction and in the proximal and transverse colon, prior study 2. Persistent gaseous distention of the middle to distal one third ileum likely due to high-grade ileus nonobstructive bowel gas pattern. 3. The tip of the feeding tube is in the proximal duodenum. 4. Stable remaining structures. There are diffuse degenerative changes of the visualized lumbar spine. RAD/Abdomen Single View (Portable) IMPRESSION: Small bowel ileus Electronically Signed: Aurelio Dodd MD at 8:31 EST ,
[2024-09-29] MEDS: Albuterol 2.5 MG/3 ML VIAL.NEB. INHALATION ×2 (07:25→14:03)
[2024-09-29] MEDS: Budesonide Respules 0.5 MG/2 ML AMPUL.NEB. INHALATION (07:25)
--- NOTE | 2024-09-29 07:40 | PN.HOSP_ITS ---
Reason for Visit Reason for Visit: Diagnoses Encephalopathy, unspecified (09/20/24) Hypotension, unspecified (09/20/24) Unspecified intestinal obstruction, unspecified as to partial versus complete obstruction (09/20/24) Ileus, unspecified (09/20/24) Acute kidney failure, unspecified (09/20/24) Weakness (09/20/24) Shock, unspecified (09/20/24) Unspecified fall, initial encounter (09/20/24) Subjective Subjective Agitated. Requiring soft restraints. Has attempted to remove NGT and Little. Objective Data Objective Data Vital Signs: Vital Signs Temp Pulse Resp BP Pulse Ox O2 Del Method O2 Flow Rate 36.7 C 87 20 H 159/60 H 94 Room Air 15 09/29/24 06:00 09/29/24 06:00 09/29/24 06:00 09/29/24 06:00 09/29/24 06:00 09/29/24 06:00 09/28/24 06:46 FiO2 35 09/24/24 10:00 Oxygen Flow Rate (L/min) 15 Oxygen Delivery Method Room Air Weight: 117 kg Body Mass Index (BMI) 34.9 Intake & Output: Intake and Output for Last 24 Hours 09/27/24 09/28/24 09/29/24 23:59 23:59 23:59 Intake Total 2207.00 / 2207.00 4678.33 / 4678.33 2336.67 / 2336.67 Output Total 2950 / 3300 1999 / 1999 250 / 250 Balance -743.00 / -1093.00 2678.33 / 2678.33 2086.67 / 2086.67 Lab / Micro Data 09/29/24 08:13 09/29/24 08:13 Labs: Laboratory Results - last 24 hr 09/28/24 07:45: Blood Type A NEGATIVE, Antibody Screen NEGATIVE, Crossmatch See Detail 09/28/24 07:45: Crossmatch See Detail 09/28/24 13:35: WBC 9.5, RBC 2.43 L, Hgb 7.1 L, Hct 23.0 L, MCV 94.7 H, MCH 29.2, MCHC 30.9 L, RDW Std Deviation 56.6 H, RDW Coeff of [place] 17.4 H, Plt Count 221, MPV 11.1, Immature Gran % (Auto) 3.900 H, Neut % (Auto) 75.4 H, Lymph % (Auto) 11.2 L, Burt % (Auto) 6.6, Eos % (Auto) 2.7, Baso % (Auto) 0.2, Absolute Neuts (auto) 7.2, Absolute Lymphs (auto) 1.06, Nucleated RBC % 0.7 Micro: Microbiology 09/24/24 08:26 Blood Culture (Wb) - Anticubital Left Blood Culture - Preliminary No growth in 48 hours. 09/24/24 11:50 Urine Catheter - Little Urine Culture - Final Culture exhibits no growth. 09/20/24 20:00 Blood Culture (Wb) - Left Hand Blood Culture - Final No growth in 5 days. 09/20/24 20:05 Blood Culture (Wb) - Other Blood Culture - Final No growth in 5 days. 09/25/24 18:30 Gastric Fluid/Contents Gastric Occult Blood - Final Occult Blood Positive 09/20/24 23:10 Mucosa - Nasopharyngeal Respiratory Panel (PCR) - Final 09/20/24 18:20 Mucosa - Nose SARS-CoV-2, Influenza & RSV (PCR) - Final Rhythm Strip Rhythm Strip: Sinus Tach Rate: 105 Ectopy: None Physical Exam Const Constitutional Narrative: pleasantly confused. HEENT head/scalp atraumatic and moist oral mucous membranes HEENT Narrative: NGT in place. Resp normal respiratory effort, no retractions, no use of accessory muscles and clear to auscultation bilaterally Cardio regular rate, regular rhythm, S1 normal heart sound and S2 normal heart sound GI normal to inspection, nondistended, normoactive bowel sounds, soft to palpation, non-tender and non-distended Extremity normal to inspection and no clubbing, cyanosis or edema Assessment & Plan Assessment/Plan (1) Ileus: (2) Encephalopathy acute: (3) Shock: PLAN: Plan Shock * 2/2 hypovolemia and possible sepsis. Resolved * responded well with IV fluids * infectious work up thus far negative. * has been on meropenem since the . [facility] recommending a 7-day course of abx. SBO * NGT in place * NPO * general surgery following. Lactulose enema ordered Metabolic encephalopathy * 2/2 to underlying issues. Overall improving * head CT negative * Continue to hold QHS gabapentin. ALEX * POA * improved with IVF. Anemia * Hg was 11.5 in July. Initial Hg was 10.1 and since dropped to 6.5. He has required 2 units of PRBCs. Heme positive stool. Apixaban has been held. * Monitor. Debility: * max assist. * additional therapy recommended (likely SNF) when medically ready. Chronic conditions: * hypothyroidism: levothyroxine * BPH: tamsulosin VTE prophylaxis: SCDs Charges/Coding Visit Charges Inpatient E&M: 10804 Subs Hosp L2
[2024-09-29 08:21] LABS: Absolute Lymphocyte Count 1.26 X10^3/uL (0.83-4.51); Basophil# 0.02 X10^3/uL; Basophil% 0.2 % (0-1); Eosinophil# 0.23 X10^3/uL; Eosinophils% 2.2 % (0-5); Hematocrit 24.6 % (40-54); Hemoglobin 7.7 g/dL (13.0-16.5); Lymphocyte # 1.26 X10^3/ul (0.83-4.51); Lymphocyte % 11.9 % (19-41); Mean Corp Hgb Conc 31.3 g/dL (32-36); Mean Corpuscular Hgb 29.4 pg (27.0-32.0); Mean Corpuscular Volume 93.9 fL (80-94); Mean Platelet Vol. 10.7 fl (6.2-12.0); Monocyte# 0.84 X10^3/uL; Monocyte% 7.9 % (0-10); NRBC Flagged by Analyzer 0.2 % (0-5); Neutrophil # 8.03 X10^3/uL (2.7-7.7); Neutrophil % 75.4 % (47-70); Platelet Count 213 K/mm3 (150-450); RBC Distribution Width CV 17.9 % (11.6-14.6); Red Blood Count 2.62 M/mm3 (4.6-6.2); White Blood Count 10.6 K/mm3 (4.4-11.0)
[2024-09-29 08:46] LABS: Anion Gap 2 (5-15); BUN 30 mg/dL (7-18); BUN/Creat Ratio 28.3 RATIO (10-20); Calcium,Total 7.9 mg/dL (8.5-10.1); Chloride 114 mmol/L (98-107); Creatinine, Serum 1.06 mg/dL (0.70-1.30); EST Glomerular Filtration Rate 71 mL/min (>60); Est Glom Filt Rate - Afr Amer 86 mL/min (>60); Estimated Creatinine Clearance 70.95 ml/min; Glucose 131 mg/dL (74-106); Potassium 3.7 mmol/L (3.5-5.1); Sodium Level 143 mmol/L (136-145)
--- NOTE | 2024-09-29 10:09 | PN.SURG_ITS ---
Subjective Subjective Patient seen and examined during AM rounds. He is found slid to the bottom of the bed and repeatedly asking to be relieved of his restraints so that he can get up. He does state that he feels somewhat better and denies any abdominal pain. Nursing reports that patient has had a small bowel movement each day but that their NG tube output has been erratic. Objective Data Objective Data Vital Signs: Vital Signs Temp Pulse Resp BP Pulse Ox O2 Del Method O2 Flow Rate 98.1 F 81 18 159/60 H 88 Room Air 15 09/29/24 06:00 09/29/24 07:25 09/29/24 07:25 09/29/24 06:00 09/29/24 09:26 09/29/24 07:09/28/24 06:46 FiO2 35 09/24/24 10:00 Oxygen Flow Rate (L/min) 15 Oxygen Delivery Method Room Air Weight: 257 lb 15.053 oz Body Mass Index (BMI) 34.9 Intake & Output: Intake and Output for Last 24 Hours 09/27/24 09/28/24 09/29/24 23:59 23:59 23:59 Intake Total 2207.00 / 2207.00 4678.33 / 4678.33 2336.67 / 2336.67 Output Total 2950 / 3300 1999 / 1999 250 / 250 Balance -743.00 / -1093.00 2678.33 / 2678.33 2086.67 / 2086.67 Lab / Micro Data 09/29/24 08:13 09/29/24 08:13 Labs: Laboratory Results - last 24 hr 09/28/24 07:45: ABO/Rh Cancelled, A1 Subgroup Cancelled, Rh Phenotype Cancelled, Rho(D) Tech Interpret Cancelled, Crossmatch See Detail 09/28/24 07:45: Crossmatch See Detail 09/28/24 13:35: WBC 9.5, RBC 2.43 L, Hgb 7.1 L, Hct 23.0 L, MCV 94.7 H, MCH 29.2, MCHC 30.9 L, RDW Std Deviation 56.6 H, RDW Coeff of [place] 17.4 H, Plt Count 221, MPV 11.1, Immature Gran % (Auto) 3.900 H, Neut % (Auto) 75.4 H, Lymph % (Auto) 11.2 L, [place] % (Auto) 6.6, Eos % (Auto) 2.7, Baso % (Auto) 0.2, Absolute Neuts (auto) 7.2, Absolute Lymphs (auto) 1.06, Nucleated RBC % 0.7 09/29/24 08:13: WBC 10.6, RBC 2.62 L, Hgb 7.7 L, Hct 24.6 L, MCV 93.9, MCH 29.4, MCHC 31.3 L, RDW Std Deviation 55.0 H, RDW Coeff of [place] 17.9 H, Plt Count 213, MPV 10.7, Immature Gran % (Auto) 2.400 H, Neut % (Auto) 75.4 H, Lymph % (Auto) 11.9 L, [place] % (Auto) 7.9, Eos % (Auto) 2.2, Baso % (Auto) 0.2, Absolute Neuts (auto) 8.0 H, Absolute Lymphs (auto) 1.26, Nucleated RBC % 0.2, Sodium 143, Potassium 3.7, Chloride 114 H, Carbon Dioxide 27.0, Anion Gap 2 L, BUN 30 H, Creatinine 1.06, Estim Creat Clear Calc 70.95, Est GFR (MDRD) Af Amer 86, Est GFR (MDRD) Non-Af 71, BUN/Creatinine Ratio 28.3 H, Glucose 131 H, Calcium 7.9 L Micro: Microbiology 09/24/24 08:26 Blood Culture (Wb) - Anticubital Left Blood Culture - Final No growth in 5 days. 09/24/24 11:50 Urine Catheter - Little Urine Culture - Final Culture exhibits no growth. 09/20/24 20:00 Blood Culture (Wb) - Left Hand Blood Culture - Final No growth in 5 days. 09/20/24 20:05 Blood Culture (Wb) - Other Blood Culture - Final No growth in 5 days. 09/25/24 18:30 Gastric Fluid/Contents Gastric Occult Blood - Final Occult Blood Positive 09/20/24 23:10 Mucosa - Nasopharyngeal Respiratory Panel (PCR) - Final 09/20/24 18:20 Mucosa - Nose SARS-CoV-2, Influenza & RSV (PCR) - Final Radiography Diagnostic Testing: Radiology Impression KUB X-Ray 09/29/24 06:40 IMPRESSION: Small bowel ileus Electronically Signed: Aurelio Dodd MD at 8:31 EST , Rhythm Strip Rhythm Strip: Sinus Tach Rate: 105 Ectopy: None Physical Exam Const Constitutional Narrative: Oriented to person only, mildly agitated with restraints Resp normal respiratory effort GI GI Narrative: Nasogastric tube in place with bilious fluid in the tubing. The sump is clear. Patient's abdomen remains distended and tympanitic?particularly over the left upper quadrant. He denies any tenderness with palpation. Assessment & Plan Assessment/Plan (1) Small bowel obstruction: PLAN: Patient is evaluated for possible partial small bowel obstruction versus ileus. Remains difficult to differentiate between these entities but radiology favors the latter based on KUB from this morning. Indeed, my independent review of patient's real intragraft's I see contrast concentrated in the region of the hepatic flexure and proximal transverse colon. NG tube was also reported by radiology as present within the proximal duodenum. As such I retracted this tube by approximately 10 cm as I believe it is postpyloric location has been at least partially at fault for the erratic NG tube output. I was asked by bedside nursing if patient is appropriate for oral medications via the NG tube. I informed them that I would not trust enteral absorption based on his bowel gas pattern at this time and would recommend conversion to intravenous route of delivery for the time being. Upon review of the MAR this appears to be the case with the exception of patient's Flomax. Agree with prior assessments from surgery that patient is most appropriately managed with stimulation from below via suppositories and optimization of his electrolytes. Further, I have asked to know how much Haldol and other anticholinergic medications patient is receiving for his agitation. They indicate that it has been 2 days since his last dose of Haldol. Based on patient's downtrending BUN this is probably at least in part because of his altered mental status. Recommend the following: ? Aspiration precautions and frequent checks of NG tube to ensure sump tubing is clear; mobilize patient to chair or at bedside as deemed safe ? Minimizing narcotics and anticholinergic medications were possible ? Daily review of patient's electrolytes?including mag and Phos ? Continue rectal suppositories as scheduled Clarke Romo MD General Surgery Endocrine Surgery Pager: [phone] [address] [place] [address], [facility] [address] [place] [address] Office: [phone] Charges/Coding Visit Charges Inpatient E&M: 40779 Subs Hosp L2
[2024-09-29 10:30] LABS: Magnesium 2.1 mg/dL (1.6-2.6); Phosphorus 2.9 mg/dL (2.5-4.9)
[2024-09-29] MEDS: QUEtiapine 25 MG Tablet PO (11:27)
[2024-09-29] MEDS: LEVOTHYROXINE SODIUM 100 MCG VIAL IV (15:04)
[2024-09-29] MEDS: Bisacodyl 10 MG Suppository RC (17:44)
[2024-09-29] MEDS: QUEtiapine 25 MG Tablet 50 MG PO (18:01)
[2024-09-29] MEDS: Morphine 4 MG/ML Syringe IV (20:31)
[2024-09-30] VITALS (12 sets, daily range): BP systolic 104–137; BP diastolic 47–83; PULSE 77–88; RESP 16–24; TEMP 36.4–36.7; O2SAT 92–98; BMI 35.2
[2024-09-30] MEDS: Metoclopramide 10 MG/2 ML Vial 5 MG IV ×4 (00:04→18:34)
[2024-09-30] MEDS: Morphine 4 MG/ML Syringe IV (00:04)
[2024-09-30] MEDS: 0.9 % NaCl (Sterile) Posiflush 10 mL IV (00:05)
[2024-09-30] MEDS: Pantoprazole Sodium 80 MG in 0.9% Normal Saline (100mL Bag) 80 ML 10 MG CONT INF ×2 (03:18→17:02)
[2024-09-30] MEDS: Dextrose 5%-Water (1000mL Bag) 1,000 ML 150 ML IV ×2 (03:19→16:58)
[2024-09-30 04:35] LABS: Absolute Lymphocyte Count 0.96 X10^3/uL (0.83-4.51); Basophil# 0.02 X10^3/uL; Basophil% 0.2 % (0-1); Eosinophils% 2.2 % (0-5); Hematocrit 24.5 % (40-54); Hemoglobin 7.7 g/dL (13.0-16.5); Lymphocyte # 0.96 X10^3/ul (0.83-4.51); Lymphocyte % 10.4 % (19-41); Mean Corp Hgb Conc 31.4 g/dL (32-36); Mean Corpuscular Hgb 29.6 pg (27.0-32.0); Mean Corpuscular Volume 94.2 fL (80-94); Mean Platelet Vol. 10.6 fl (6.2-12.0); Monocyte# 0.77 X10^3/uL; Monocyte% 8.3 % (0-10); NRBC Flagged by Analyzer 0.2 % (0-5); Neutrophil # 7.03 X10^3/uL (2.7-7.7); Neutrophil % 75.9 % (47-70); Platelet Count 212 K/mm3 (150-450); RBC Distribution Width SD 52.9 fl (35.1-43.9); White Blood Count 9.3 K/mm3 (4.4-11.0)
[2024-09-30 04:56] LABS: Anion Gap 5 (5-15); BUN 26 mg/dL (7-18); BUN/Creat Ratio 25.2 RATIO (10-20); Calcium,Total 7.7 mg/dL (8.5-10.1); Chloride 110 mmol/L (98-107); Creatinine, Serum 1.03 mg/dL (0.70-1.30); EST Glomerular Filtration Rate 73 mL/min (>60); Est Glom Filt Rate - Afr Amer 89 mL/min (>60); Estimated Creatinine Clearance 73.02 ml/min; Glucose 111 mg/dL (74-106); Potassium 3.4 mmol/L (3.5-5.1); Sodium Level 136 mmol/L (136-145)
--- NOTE | 2024-09-30 05:35 | RAD_ITS ---
STUDY: X-RAY - ABDOMEN/PELVIS REASON FOR EXAM: Male, 83 years old. Persistent abdominal pain and distention TECHNIQUE: 3 AP views COMPARISON: Yesterday FINDINGS: Normal visualized lung bases. Stable appearance of the NG tube Persistent distended air-filled bowel loops throughout the abdomen and pelvis essentially unchanged in caliber since the previous study. However, there has been progression of the previously noted oral contrast which is now seen throughout the colon. No oral contrast is noted within the small bowel loops. There is no demonstrated small bowel structure. Findings are consistent with ileus. The visualized liver, spleen and kidneys are grossly normal in size and morphology. Normal soft tissue structures. There are diffuse degenerative changes of the visualized lumbar spine. RAD/Abdomen Single View (Portable) IMPRESSION: Although the caliber of the distended bowel loops is essentially unchanged from the previous study, there has been progression of the previously noted oral contrast which has passed through the small bowel now sits within the colon. No evidence of obstruction, findings are consistent with ileus Electronically Signed: Tha Eli MD at 8:32 EST ,
[2024-09-30] MEDS: Meropenem 1 GM in 0.9% Normal Saline (100mL MB+) 100 ML IV ×3 (06:45→23:36)
[2024-09-30] MEDS: Albuterol 2.5 MG/3 ML VIAL.NEB. INHALATION ×3 (07:31→19:49)
[2024-09-30] MEDS: Budesonide Respules 0.5 MG/2 ML AMPUL.NEB. INHALATION ×2 (07:31→19:49)
--- NOTE | 2024-09-30 08:50 | PN.HOSP_ITS ---
Reason for Visit Reason for Visit: Diagnoses Encephalopathy, unspecified (09/20/24) Hypotension, unspecified (09/20/24) Unspecified intestinal obstruction, unspecified as to partial versus complete obstruction (09/20/24) Ileus, unspecified (09/20/24) Acute kidney failure, unspecified (09/20/24) Weakness (09/20/24) Shock, unspecified (09/20/24) Unspecified fall, initial encounter (09/20/24) Subjective Subjective Calm so far today. Objective Data Objective Data Vital Signs: Vital Signs Temp Pulse Resp BP Pulse Ox O2 Del Method O2 Flow Rate 36.4 C L 80 18 128/55 H 93 Room Air 15 09/30/24 07:57 09/30/24 07:57 09/30/24 07:57 09/30/24 07:57 09/30/24 07:57 09/30/24 07:57 09/28/24 06:46 FiO2 35 09/24/24 10:00 Oxygen Flow Rate (L/min) 15 Oxygen Delivery Method Room Air Weight: 117.7 kg Body Mass Index (BMI) 35.2 Intake & Output: Intake and Output for Last 24 Hours 09/28/24 09/29/24 09/30/24 23:59 23:59 23:59 Intake Total 4678.33 / 4678.33 4705.50 / 4705.50 1340 / 1340 Output Total 1999 / 1999 1100 / 1100 600 / 600 Balance 2678.33 / 2678.33 3605.50 / 3605.50 740 / 740 Lab / Micro Data 09/30/24 04:22 09/30/24 04:22 Labs: Laboratory Results - last 24 hr 09/28/24 07:45: ABO/Rh Cancelled, A1 Subgroup Cancelled, Rh Phenotype Cancelled, Rho(D) Tech Interpret Cancelled 09/29/24 08:13: Phosphorus 2.9, Magnesium 2.1 09/30/24 04:22: WBC 9.3, RBC 2.60 L, Hgb 7.7 L, Hct 24.5 L, MCV 94.2 H, MCH 29.6, MCHC 31.4 L, RDW Std Deviation 52.9 H, RDW Coeff of [place] 18.0 H, Plt Count 212, MPV 10.6, Immature Gran % (Auto) 3.000 H, Neut % (Auto) 75.9 H, Lymph % (Auto) 10.4 L, [place] % (Auto) 8.3, Eos % (Auto) 2.2, Baso % (Auto) 0.2, Absolute Neuts (auto) 7.0, Absolute Lymphs (auto) 0.96, Nucleated RBC % 0.2, Sodium 136, Potassium 3.4 L, Chloride 110 H, Carbon Dioxide 22.0, Anion Gap 5, BUN 26 H, Creatinine 1.03, Estim Creat Clear Calc 73.02, Est GFR (MDRD) Af Amer 89, Est GFR (MDRD) Non-Af 73, BUN/Creatinine Ratio 25.2 H, Glucose 111 H, Calcium 7.7 L Micro: Microbiology 09/24/24 08:26 Blood Culture (Wb) - Anticubital Left Blood Culture - Final No growth in 5 days. 09/24/24 11:50 Urine Catheter - Little Urine Culture - Final Culture exhibits no growth. 09/20/24 20:00 Blood Culture (Wb) - Left Hand Blood Culture - Final No growth in 5 days. 09/20/24 20:05 Blood Culture (Wb) - Other Blood Culture - Final No growth in 5 days. 09/25/24 18:30 Gastric Fluid/Contents Gastric Occult Blood - Final Occult Blood Positive 09/20/24 23:10 Mucosa - Nasopharyngeal Respiratory Panel (PCR) - Final 09/20/24 18:20 Mucosa - Nose SARS-CoV-2, Influenza & RSV (PCR) - Final Radiography Diagnostic Testing: Radiology Impression KUB X-Ray 09/30/24 05:35 IMPRESSION: Although the caliber of the distended bowel loops is essentially unchanged from the previous study, there has been progression of the previously noted oral contrast which has passed through the small bowel now sits within the colon. No evidence of obstruction, findings are consistent with ileus Electronically Signed: Tha Eli MD at 8:32 EST , Rhythm Strip Rhythm Strip: Sinus Tach Rate: 105 Ectopy: None Physical Exam Const alert and no apparent distress HEENT head/scalp atraumatic and moist oral mucous membranes Resp normal respiratory effort, no retractions, no use of accessory muscles and clear to auscultation bilaterally Cardio regular rate, regular rhythm, S1 normal heart sound and S2 normal heart sound GI GI Narrative: distended. hypoactive BS. Extremity normal to inspection and no clubbing, cyanosis or edema Neuro Sensorium / Orientation: awake and alert Assessment & Plan Assessment/Plan (1) Ileus: (2) Encephalopathy acute: (3) Shock: PLAN: Plan Shock * 2/2 hypovolemia and possible sepsis. Resolved * responded well with IV fluids * infectious work up thus far negative. * has been on meropenem since the . [facility] recommending a 7-day course of abx. SBO * versus ileus * NGT in place * NPO * general surgery following. * on metoclopramide Metabolic encephalopathy * 2/2 to underlying issues. * head CT negative * Has required quetiapine to help calm him. Hopefully this continueds to worsen. ALEX * POA * improved with IVF. Anemia * Hg was 11.5 in July. Initial Hg was 10.1 and since dropped to 6.5. He has required 2 units of PRBCs. Heme positive stool. Apixaban has been held. * Monitor. Debility: * max assist. * additional therapy recommended (likely SNF) when medically ready. Chronic conditions: * hypothyroidism: levothyroxine * BPH: tamsulosin VTE prophylaxis: SCDs Charges/Coding Visit Charges Inpatient E&M: 05079 Subs Hosp L2
[2024-09-30] MEDS: Bisacodyl 10 MG Suppository RC (09:29)
[2024-09-30] MEDS: Potassium Chloride 10mEq/100mL 10 MEQ/100 ML IV.SOLN. 100 MEQ IV BOLUS ×4 (09:41→13:28)
--- NOTE | 2024-09-30 09:50 | PN.SURG_ITS ---
Subjective Subjective Patient seen and examined during AM rounds. He is found resting in his medical surgical room (transferred from the ICU yesterday). Nursing reports that patient seems more mentally alert and he does appear more cogent with his responses to questioning. He denies any abdominal pain. He denies any appetite. However, he is unable to state either our location or the year. Objective Data Objective Data Vital Signs: Vital Signs Temp Pulse Resp BP Pulse Ox O2 Del Method O2 Flow Rate 97.5 F L 80 18 128/55 H 93 Room Air 15 09/30/24 07:57 09/30/24 07:57 09/30/24 07:57 09/30/24 07:57 09/30/24 07:57 09/30/24 07:57 09/28/24 06:46 FiO2 35 09/24/24 10:00 Oxygen Flow Rate (L/min) 15 Oxygen Delivery Method Room Air Weight: 259 lb 7.745 oz Body Mass Index (BMI) 35.2 Intake & Output: Intake and Output for Last 24 Hours 09/28/24 09/29/24 09/30/24 23:59 23:59 23:59 Intake Total 4678.33 / 4678.33 4705.50 / 4705.50 1340 / 1340 Output Total 1999 / 1999 1100 / 1100 600 / 600 Balance 2678.33 / 2678.33 3605.50 / 3605.50 740 / 740 Lab / Micro Data 09/30/24 04:22 09/30/24 04:22 Labs: Laboratory Results - last 24 hr 09/29/24 08:13: Phosphorus 2.9, Magnesium 2.1 09/30/24 04:22: WBC 9.3, RBC 2.60 L, Hgb 7.7 L, Hct 24.5 L, MCV 94.2 H, MCH 29.6, MCHC 31.4 L, RDW Std Deviation 52.9 H, RDW Coeff of [place] 18.0 H, Plt Count 212, MPV 10.6, Immature Gran % (Auto) 3.000 H, Neut % (Auto) 75.9 H, Lymph % (Auto) 10.4 L, [place] % (Auto) 8.3, Eos % (Auto) 2.2, Baso % (Auto) 0.2, Absolute Neuts (auto) 7.0, Absolute Lymphs (auto) 0.96, Nucleated RBC % 0.2, Sodium 136, Potassium 3.4 L, Chloride 110 H, Carbon Dioxide 22.0, Anion Gap 5, BUN 26 H, Creatinine 1.03, Estim Creat Clear Calc 73.02, Est GFR (MDRD) Af Amer 89, Est GFR (MDRD) Non-Af 73, BUN/Creatinine Ratio 25.2 H, Glucose 111 H, Calcium 7.7 L Micro: Microbiology 09/24/24 08:26 Blood Culture (Wb) - Anticubital Left Blood Culture - Final No growth in 5 days. 09/24/24 11:50 Urine Catheter - Little Urine Culture - Final Culture exhibits no growth. 09/20/24 20:00 Blood Culture (Wb) - Left Hand Blood Culture - Final No growth in 5 days. 09/20/24 20:05 Blood Culture (Wb) - Other Blood Culture - Final No growth in 5 days. 09/25/24 18:30 Gastric Fluid/Contents Gastric Occult Blood - Final Occult Blood Positive 09/20/24 23:10 Mucosa - Nasopharyngeal Respiratory Panel (PCR) - Final 09/20/24 18:20 Mucosa - Nose SARS-CoV-2, Influenza & RSV (PCR) - Final Radiography Diagnostic Testing: Radiology Impression KUB X-Ray 09/30/24 05:35 IMPRESSION: Although the caliber of the distended bowel loops is essentially unchanged from the previous study, there has been progression of the previously noted oral contrast which has passed through the small bowel now sits within the colon. No evidence of obstruction, findings are consistent with ileus Electronically Signed: Tha Eli MD at 8:32 EST , Rhythm Strip Rhythm Strip: Sinus Tach Rate: 105 Ectopy: None Physical Exam Const no apparent distress Constitutional Narrative: Oriented to person only Resp normal respiratory effort GI GI Narrative: NG tube with dark bilious output is decreased volume. Abdomen is markedly distended and the upper abdominal quadrants remain tympanitic. It is nontender on exam. Assessment & Plan Assessment/Plan (1) Small bowel obstruction: PLAN: Patient is evaluated for possible partial small bowel obstruction versus ileus. Remains difficult to differentiate between these entities but radiology again favors ileus based on patient's KUB. In my independent review of today's study I confirmed the read that patient's oral contrast has completely transited to the colon and now opacifies both the right and left colon. With this progress recommend further stimulation from below using suppositories and could consider retrying an enema as patient now appears more cooperative with a improved mental status. Some mild hypokalemia is noted with his labs today and I have ordered potassium replacement. Recommend the following: ? Aspiration precautions and frequent checks of NG tube to ensure sump tubing is clear; mobilize patient to chair or at bedside as deemed safe ? Minimizing narcotics and anticholinergic medications were possible ? Daily review of patient's electrolytes?including mag and Phos; potassium replacement today ? Continue rectal suppositories as scheduled Clarke Romo MD General Surgery Endocrine Surgery Pager: [facility] [address] [place] [address], [facility], [address] [place] [address] Office: [phone] Charges/Coding Visit Charges Inpatient E&M: 24041 Subs Hosp L2
[2024-10-01] VITALS (15 sets, daily range): BP systolic 118–158; BP diastolic 45–101; PULSE 68–94; RESP 16–24; TEMP 36.3–37; O2SAT 93–99; BMI 36.1
[2024-10-01] MEDS: Dextrose 5%-Water (1000mL Bag) 1,000 ML 150 ML IV ×2 (01:56→09:37)
[2024-10-01] MEDS: Metoclopramide 10 MG/2 ML Vial 5 MG IV ×4 (01:57→18:21)
[2024-10-01] MEDS: Pantoprazole Sodium 80 MG in 0.9% Normal Saline (100mL Bag) 80 ML 10 MG CONT INF ×2 (04:30→16:28)
[2024-10-01 04:47] LABS: Absolute Lymphocyte Count 0.66 X10^3/uL (0.83-4.51); Absolute Neutrophil Count 7.1 X10^3/uL (2.0-7.7); Basophil# 0.02 X10^3/uL; Basophil% 0.2 % (0-1); Eosinophil# 0.21 X10^3/uL; Eosinophils% 2.4 % (0-5); Hematocrit 26.1 % (40-54); Hemoglobin 8.1 g/dL (13.0-16.5); Lymphocyte # 0.66 X10^3/ul (0.83-4.51); Lymphocyte % 7.6 % (19-41); Mean Corpuscular Hgb 29.3 pg (27.0-32.0); Mean Corpuscular Volume 94.6 fL (80-94); Mean Platelet Vol. 10.5 fl (6.2-12.0); Monocyte# 0.57 X10^3/uL; Monocyte% 6.5 % (0-10); NRBC Flagged by Analyzer 0 % (0-5); Neutrophil % 81.5 % (47-70); Platelet Count 229 K/mm3 (150-450); RBC Distribution Width CV 17.9 % (11.6-14.6); RBC Distribution Width SD 54.7 fl (35.1-43.9); Red Blood Count 2.76 M/mm3 (4.6-6.2); White Blood Count 8.7 K/mm3 (4.4-11.0)
[2024-10-01 05:10] LABS: Anion Gap 5 (5-15); BUN 20 mg/dL (7-18); BUN/Creat Ratio 21.2 RATIO (10-20); Calcium,Total 8.1 mg/dL (8.5-10.1); Chloride 111 mmol/L (98-107); Creatinine, Serum 0.94 mg/dL (0.70-1.30); EST Glomerular Filtration Rate 81 mL/min (>60); Est Glom Filt Rate - Afr Amer 98 mL/min (>60); Estimated Creatinine Clearance 80.25 ml/min; Glucose 127 mg/dL (74-106); Potassium 3.9 mmol/L (3.5-5.1); Sodium Level 139 mmol/L (136-145)
[2024-10-01 06:21] LABS: Phosphorus 2.7 mg/dL (2.5-4.9)
[2024-10-01] MEDS: Meropenem 1 GM in 0.9% Normal Saline (100mL MB+) 100 ML IV ×3 (06:36→22:30)
[2024-10-01] MEDS: Budesonide Respules 0.5 MG/2 ML AMPUL.NEB. INHALATION ×2 (06:46→19:52)
[2024-10-01] MEDS: Albuterol 2.5 MG/3 ML VIAL.NEB. INHALATION ×3 (06:46→19:52)
--- NOTE | 2024-10-01 07:24 | PN.SURG_ITS ---
Subjective Subjective Patient evaluated resting comfortably in bed. He denies any abdominal pain/discomfort. He denies any flatus or bowel movement. He states he did an enema without any results. He has an NG tube in place. He is alert and aware he is in the hospital. Objective Data Objective Data Vital Signs: Vital Signs Temp Pulse Resp BP Pulse Ox O2 Del Method O2 Flow Rate 98.3 F 77 18 136/62 H 95 Room Air 15 10/01/24 06:00 10/01/24 06:48 10/01/24 06:48 10/01/24 06:00 10/01/24 06:48 10/01/24 06:48 09/28/24 06:46 FiO2 35 09/24/24 10:00 Oxygen Flow Rate (L/min) 15 Oxygen Delivery Method Room Air Weight: 266 lb 5.094 oz Body Mass Index (BMI) 36.1 Intake & Output: Intake and Output for Last 24 Hours 09/29/24 09/30/24 10/01/24 23:59 23:59 23:59 Intake Total 4705.50 / 4705.50 4110 / 4110 250 / 250 Output Total 1100 / 1100 600 / 600 300 / 300 Balance 3605.50 / 3605.50 3510 / 3510 -50 / -50 Lab / Micro Data 10/01/24 04:40 10/01/24 04:40 Labs: Laboratory Results - last 24 hr 10/01/24 04:40: WBC 8.7, RBC 2.76 L, Hgb 8.1 L, Hct 26.1 L, MCV 94.6 H, MCH 29.3, MCHC 31.0 L, RDW Std Deviation 54.7 H, RDW Coeff of [place] 17.9 H, Plt Count 229, MPV 10.5, Immature Gran % (Auto) 1.800 H, Neut % (Auto) 81.5 H, Lymph % (Auto) 7.6 L, [place] % (Auto) 6.5, Eos % (Auto) 2.4, Baso % (Auto) 0.2, Absolute Neuts (auto) 7.1, Absolute Lymphs (auto) 0.66 L, Nucleated RBC % 0, Sodium 139, Potassium 3.9, Chloride 111 H, Carbon Dioxide 22.0, Anion Gap 5, BUN 20 H, Creatinine 0.94, Estim Creat Clear Calc 80.25, Est GFR (MDRD) Af Amer 98, Est GFR (MDRD) Non-Af 81, BUN/Creatinine Ratio 21.2 H, Glucose 127 H, Calcium 8.1 L, Phosphorus 2.7, Magnesium 2.0 Micro: Microbiology 09/24/24 08:26 Blood Culture (Wb) - Anticubital Left Blood Culture - Final No growth in 5 days. 09/24/24 11:50 Urine Catheter - Little Urine Culture - Final Culture exhibits no growth. 09/20/24 20:00 Blood Culture (Wb) - Left Hand Blood Culture - Final No growth in 5 days. 09/20/24 20:05 Blood Culture (Wb) - Other Blood Culture - Final No growth in 5 days. 09/25/24 18:30 Gastric Fluid/Contents Gastric Occult Blood - Final Occult Blood Positive 09/20/24 23:10 Mucosa - Nasopharyngeal Respiratory Panel (PCR) - Final 09/20/24 18:20 Mucosa - Nose SARS-CoV-2, Influenza & RSV (PCR) - Final Radiography Diagnostic Testing: Radiology Impression KUB X-Ray 09/30/24 05:35 IMPRESSION: Although the caliber of the distended bowel loops is essentially unchanged from the previous study, there has been progression of the previously noted oral contrast which has passed through the small bowel now sits within the colon. No evidence of obstruction, findings are consistent with ileus Electronically Signed: Tha Eli MD at 8:32 EST Reading Location ID and State: [address] [place] [address] , Service support , Rhythm Strip Rhythm Strip: Sinus Tach Rate: 105 Ectopy: None Physical Exam GI Inspection: abdominal distention, central obesity and other Other Details: obtunded abdomen Auscultation: hypoactive bowel sounds Palpation: soft; Negative for tender Assessment & Plan Assessment/Plan (1) Small bowel obstruction: PLAN: I am following this patient in conjunction with Dr. Justice. She will independently evaluate this patient. Labs reviewed KUB ordered for this morning Patient likely going to surgery tomorrow for a diagnostic laparoscopy if bowel function does not return Will discuss with patient's daughter, Isabela, this morning Continue NG tube We will continue to monitor this patient's progress Charges/Coding Visit Charges Inpatient E&M: 61435 Subs Hosp L1
--- NOTE | 2024-10-01 07:40 | RAD_ITS ---
STUDY: X-RAY - ABDOMEN/PELVIS REASON FOR EXAM: Male, 83 years old. Small bowel obstruction -- PORTABLE TECHNIQUE: Single AP view of the abdomen / pelvis. COMPARISON: Comparison is made with prior study dated September 30, 2024. FINDINGS: The tip of the nasogastric tube is in the body of the stomach. Contrast is seen throughout the colon. Mild residual small bowel dilatation. Findings suggestive of an ileus pattern. The visualized liver, spleen and kidneys are grossly normal in size and morphology. Normal soft tissue structures. There are diffuse degenerative changes of the visualized lumbar spine. RAD/Abdomen Single View (Portable) IMPRESSION: Contrast is seen within the colon. Improved aeration of the small bowel loops with less distention. Findings suggestive of an ileus pattern. Electronically Signed: Erick Hudson MD at 9:00 EST ,
--- NOTE | 2024-10-01 08:08 | PN.HOSP_ITS ---
Reason for Visit Reason for Visit: Diagnoses Encephalopathy, unspecified (09/20/24) Hypotension, unspecified (09/20/24) Unspecified intestinal obstruction, unspecified as to partial versus complete obstruction (09/20/24) Ileus, unspecified (09/20/24) Acute kidney failure, unspecified (09/20/24) Weakness (09/20/24) Shock, unspecified (09/20/24) Unspecified fall, initial encounter (09/20/24) Subjective Subjective Still confused. NGT still in place. Objective Data Objective Data Vital Signs: Vital Signs Temp Pulse Resp BP Pulse Ox O2 Del Method O2 Flow Rate 36.8 C 77 18 136/62 H 95 Room Air 15 10/01/24 06:00 10/01/24 06:48 10/01/24 06:48 10/01/24 06:00 10/01/24 06:48 10/01/24 06:48 09/28/24 06:46 FiO2 35 09/24/24 10:00 Oxygen Flow Rate (L/min) 15 Oxygen Delivery Method Room Air Weight: 120.8 kg Body Mass Index (BMI) 36.1 Intake & Output: Intake and Output for Last 24 Hours 09/29/24 09/30/24 10/01/24 23:59 23:59 23:59 Intake Total 4705.50 / 4705.50 4110 / 4110 250 / 250 Output Total 1100 / 1100 600 / 600 300 / 300 Balance 3605.50 / 3605.50 3510 / 3510 -50 / -50 Lab / Micro Data 10/01/24 04:40 10/01/24 04:40 Labs: Laboratory Results - last 24 hr 10/01/24 04:40: WBC 8.7, RBC 2.76 L, Hgb 8.1 L, Hct 26.1 L, MCV 94.6 H, MCH 29.3, MCHC 31.0 L, RDW Std Deviation 54.7 H, RDW Coeff of [place] 17.9 H, Plt Count 229, MPV 10.5, Immature Gran % (Auto) 1.800 H, Neut % (Auto) 81.5 H, Lymph % (Auto) 7.6 L, [place] % (Auto) 6.5, Eos % (Auto) 2.4, Baso % (Auto) 0.2, Absolute Neuts (auto) 7.1, Absolute Lymphs (auto) 0.66 L, Nucleated RBC % 0, Sodium 139, Potassium 3.9, Chloride 111 H, Carbon Dioxide 22.0, Anion Gap 5, BUN 20 H, Creatinine 0.94, Estim Creat Clear Calc 80.25, Est GFR (MDRD) Af Amer 98, Est GFR (MDRD) Non-Af 81, BUN/Creatinine Ratio 21.2 H, Glucose 127 H, Calcium 8.1 L, Phosphorus 2.7, Magnesium 2.0 Micro: Microbiology 09/24/24 08:26 Blood Culture (Wb) - Anticubital Left Blood Culture - Final No growth in 5 days. 09/24/24 11:50 Urine Catheter - Little Urine Culture - Final Culture exhibits no growth. 09/20/24 20:00 Blood Culture (Wb) - Left Hand Blood Culture - Final No growth in 5 days. 09/20/24 20:05 Blood Culture (Wb) - Other Blood Culture - Final No growth in 5 days. 09/25/24 18:30 Gastric Fluid/Contents Gastric Occult Blood - Final Occult Blood Positive 09/20/24 23:10 Mucosa - Nasopharyngeal Respiratory Panel (PCR) - Final 09/20/24 18:20 Mucosa - Nose SARS-CoV-2, Influenza & RSV (PCR) - Final Radiography Diagnostic Testing: Radiology Impression KUB X-Ray 09/30/24 05:35 IMPRESSION: Although the caliber of the distended bowel loops is essentially unchanged from the previous study, there has been progression of the previously noted oral contrast which has passed through the small bowel now sits within the colon. No evidence of obstruction, findings are consistent with ileus Electronically Signed: Tha Eli MD at 8:32 EST , Rhythm Strip Rhythm Strip: Sinus Tach Rate: 105 Ectopy: None Physical Exam Const alert Orientation / Consciousness: confused HEENT head/scalp atraumatic and moist oral mucous membranes Resp normal respiratory effort, no retractions, no use of accessory muscles and clear to auscultation bilaterally Cardio regular rate, regular rhythm, S1 normal heart sound and S2 normal heart sound GI GI Narrative: distended. NT. hypoactive BS. Neuro Sensorium / Orientation: awake Assessment & Plan Assessment/Plan (1) Ileus: (2) Encephalopathy acute: (3) Shock: PLAN: Plan Shock * 2/2 hypovolemia and possible sepsis. Resolved * responded well with IV fluids * infectious work up thus far negative. * has been on meropenem since the . [facility] recommending a 7-day course of abx. SBO * versus ileus * NGT in place * NPO * general surgery following. Tentative plan for laparotomy on 10/02 * on metoclopramide Metabolic encephalopathy * 2/2 to underlying issues. * head CT negative * Has required quetiapine to help calm him. ALEX * POA * improved with IVF. Anemia * Hg was 11.5 in July. Initial Hg was 10.1 and since dropped to 6.5. He has required 2 units of PRBCs. Heme positive stool. Apixaban has been held. * Monitor. Debility: * max assist. * additional therapy recommended (likely SNF) when medically ready. Chronic conditions: * hypothyroidism: levothyroxine * BPH: tamsulosin Malnutrition: * has been NPO since the , will initiate TPN. Will require PICC line. VTE prophylaxis: SCDs Charges/Coding Visit Charges Inpatient E&M: 90769 Subs Hosp L2
--- NOTE | 2024-10-01 12:11 | CASEMGMT ---
Social Work SW called daughter Isabela, to follow up on prison choices. Message left to call SW back. JEFFREY will continue to follow. DEVORA Isaac
--- NOTE | 2024-10-01 13:13 | CASEMGMT ---
Pt daughter called, first two SNF choices are 1. [facility] [phone] [facility] PH: [phone]. Notified SW of this.
--- NOTE | 2024-10-01 13:22 | NURSING ---
dynamic access informed of picc order.
--- NOTE | 2024-10-01 13:30 | CASEMGMT ---
Addendum entered by Octavia Allison 10/01/24 14:01: Social Work SW has not heard back from [facility] in [place]. SW called daughter Isabela again, left another message. SW will continue to follow. DEVORA Isaac Original Note: Social Work SW reviewed the list of facilities in network, as family did not go off of the list given to them to make the choices. [facility] is in network. [facility] in [place] does not appear to be however. SW called [facility] and left a message. SW will continue to follow, referrals will be made when appropriate. DEVORA Isaac
[2024-10-01 13:37] LABS: Triglycerides 93 mg/dL
--- NOTE | 2024-10-01 14:02 | NURSING ---
Left messages for Mahesh regarding consent for PICC line insertion.
--- NOTE | 2024-10-01 16:21 | NURSING ---
Update provided via phone call to daughter Isabela.
[2024-10-01] MEDS: TPN - Clinimix E 8%-14% Soln 2,000 ML with Multivitamins 10 ML, Trace Elements 1 ML, Fo... 42 ML IV (16:33)
[2024-10-01] MEDS: Fat Emulsions 20% 250 ML IV (16:37)
[2024-10-01 19:05] LABS: Bedside Glucose 141 mg/dL (74-106)
[2024-10-01] MEDS: 0.9 % NaCl (Sterile) Posiflush 10 mL IV (19:58)
[2024-10-01] MEDS: LORazepam 2 MG/ML Syringe IV (19:58)
[2024-10-02] VITALS (15 sets, daily range): BP systolic 129–171; BP diastolic 53–91; PULSE 78–100; RESP 15–20; TEMP 35.9–37; O2SAT 93–97; BMI 34.7
[2024-10-02] MEDS: Metoclopramide 10 MG/2 ML Vial 5 MG IV ×4 (00:37→18:20)
[2024-10-02] MEDS: 0.9 % NaCl (Sterile) Posiflush 10 mL IV ×2 (00:38→12:06)
[2024-10-02 01:01] LABS: Bedside Glucose 134 mg/dL (74-106)
--- NOTE | 2024-10-02 02:33 | CPS ---
[facility] started breathing treatment, Patient refused. Treatment stopped by [facility]
[2024-10-02] MEDS: Pantoprazole Sodium 80 MG in 0.9% Normal Saline (100mL Bag) 80 ML 10 MG CONT INF ×2 (03:32→14:43)
--- NOTE | 2024-10-02 05:00 | RAD_ITS ---
EXAM: XR ABDOMEN, 1 VIEW CLINICAL INDICATION: small bowel obstruction -- PORTABLE TECHNIQUE: Frontal supine view of the abdomen/pelvis. COMPARISON: KUB from 10/01/2024. FINDINGS: LOWER THORAX: No acute pathology. GASTROINTESTINAL TRACT: Dilated small bowel in the left abdomen again noted, similar appearance to the previous exam. Contrast in the colon and rectum from the previous exam. ORGANS: Unremarkable as visualized. No organomegaly. No abnormal calcifications. BONES/JOINTS: No acute pathology. SOFT TISSUES: No acute pathology. RAD/Abdomen Single View (Portable) IMPRESSION: Dilated small bowel in the left abdomen again noted, similar appearance to the previous exam. Electronically Signed: Destin Alcala MD at 7:41 EST ,
[2024-10-02] MEDS: 0.9% Saline Lock 10 ML Syringe IV ×2 (05:09→18:19)
[2024-10-02] MEDS: Meropenem 1 GM in 0.9% Normal Saline (100mL MB+) 100 ML IV ×3 (05:09→22:28)
[2024-10-02 06:31] LABS: Bedside Glucose 126 mg/dL (74-106)
[2024-10-02] MEDS: Budesonide Respules 0.5 MG/2 ML AMPUL.NEB. INHALATION ×2 (07:17→18:59)
[2024-10-02] MEDS: Albuterol 2.5 MG/3 ML VIAL.NEB. INHALATION ×3 (07:18→18:59)
[2024-10-02 07:23] LABS: Absolute Lymphocyte Count 0.71 X10^3/uL (0.83-4.51); Absolute Neutrophil Count 8.1 X10^3/uL (2.0-7.7); Basophil# 0.01 X10^3/uL; Basophil% 0.1 % (0-1); Eosinophil# 0.19 X10^3/uL; Eosinophils% 1.9 % (0-5); Hematocrit 28.4 % (40-54); Hemoglobin 8.6 g/dL (13.0-16.5); Lymphocyte # 0.71 X10^3/ul (0.83-4.51); Mean Corp Hgb Conc 30.3 g/dL (32-36); Mean Corpuscular Hgb 28.9 pg (27.0-32.0); Mean Corpuscular Volume 95.3 fL (80-94); Mean Platelet Vol. 10.7 fl (6.2-12.0); Monocyte# 0.89 X10^3/uL; Monocyte% 8.8 % (0-10); NRBC Flagged by Analyzer 0 % (0-5); Neutrophil # 8.13 X10^3/uL (2.7-7.7); Neutrophil % 80.7 % (47-70); Platelet Count 246 K/mm3 (150-450); RBC Distribution Width SD 57.3 fl (35.1-43.9); Red Blood Count 2.98 M/mm3 (4.6-6.2); White Blood Count 10.1 K/mm3 (4.4-11.0)
--- NOTE | 2024-10-02 07:26 | PCM.PN.SRG ---
Subjective Subjective Patient is evaluated resting comfortably in bed. He seems more confused this morning. When asked, he is denying any abdominal pain or bowel function. Per nursing notes, he has had multiple loose bowel movements from 09/30 into 10/01. He had an enema yesterday which did not make much difference as the patient was already having loose stools. He pulled out his NG tube last night despite being in restraints. Objective Data Objective Data Vital Signs: Vital Signs Temp Pulse Resp BP Pulse Ox O2 Del Method O2 Flow Rate 98.6 F 84 18 132/56 H 96 Room Air 15 10/02/24 06:00 10/02/24 06:00 10/02/24 06:00 10/02/24 06:00 10/02/24 06:00 10/02/24 06:00 09/28/24 06:46 FiO2 35 09/24/24 10:00 Oxygen Flow Rate (L/min) 15 Oxygen Delivery Method Room Air Weight: 256 lb 6.362 oz Body Mass Index (BMI) 34.7 Intake & Output: Intake and Output for Last 24 Hours 09/30/24 10/01/24 10/02/24 23:59 23:59 23:59 Intake Total 4110 / 4110 3290 / 3290 470 / 470 Output Total 600 / 600 650 / 650 200 / 200 Balance 3510 / 3510 2640 / 2640 270 / 270 Lab / Micro Data 10/02/24 07:04 10/02/24 07:04 Labs: Laboratory Results - last 24 hr 10/01/24 04:40: Triglycerides 93 10/01/24 18:48: POC Glucose 141 H 10/02/24 00:39: POC Glucose 134 H 10/02/24 05:55: POC Glucose 126 H 10/02/24 07:04: WBC 10.1, RBC 2.98 L, Hgb 8.6 L, Hct 28.4 L, MCV 95.3 H, MCH 28.9, MCHC 30.3 L, RDW Std Deviation 57.3 H, RDW Coeff of [place] 18.0 H, Plt Count 246, MPV 10.7, Immature Gran % (Auto) 1.500 H, Neut % (Auto) 80.7 H, Lymph % (Auto) 7.0 L, [place] % (Auto) 8.8, Eos % (Auto) 1.9, Baso % (Auto) 0.1, Absolute Neuts (auto) 8.1 H, Absolute Lymphs (auto) 0.71 L, Nucleated RBC % 0 Micro: Microbiology 09/24/24 08:26 Blood Culture (Wb) - Anticubital Left Blood Culture - Final No growth in 5 days. 09/24/24 11:50 Urine Catheter - Little Urine Culture - Final Culture exhibits no growth. 09/20/24 20:00 Blood Culture (Wb) - Left Hand Blood Culture - Final No growth in 5 days. 09/20/24 20:05 Blood Culture (Wb) - Other Blood Culture - Final No growth in 5 days. 09/25/24 18:30 Gastric Fluid/Contents Gastric Occult Blood - Final Occult Blood Positive 09/20/24 23:10 Mucosa - Nasopharyngeal Respiratory Panel (PCR) - Final 09/20/24 18:20 Mucosa - Nose SARS-CoV-2, Influenza & RSV (PCR) - Final Radiography Diagnostic Testing: Radiology Impression KUB X-Ray 10/01/24 07:40 IMPRESSION: Contrast is seen within the colon. Improved aeration of the small bowel loops with less distention. Findings suggestive of an ileus pattern. Electronically Signed: Erick Hudson MD at 9:00 EST , Rhythm Strip Rhythm Strip: Sinus Tach Rate: 105 Ectopy: None Physical Exam GI GI Narrative: Abdomen- soft, obese. Nontender to palpation. Bowel sounds present. Assessment & Plan Assessment/Plan (1) Ileus: PLAN: I am following this patient in conjunction with Dr. Justice. She will independently evaluate this patient. Labs reviewed Leave NG tube out Continue TPN Consulted speech therapy to pursue swallowing evaluation prior to restarting a diet No surgical intervention is planned at this time Bowel function seems to be improving We will continue to monitor this patient Charges/Coding Visit Charges Inpatient E&M: 60546 Subs Hosp L1
--- NOTE | 2024-10-02 07:36 | PCM.PN.HOSP ---
Reason for Visit Reason for Visit: Diagnoses Encephalopathy, unspecified (09/20/24) Hypotension, unspecified (09/20/24) Unspecified intestinal obstruction, unspecified as to partial versus complete obstruction (09/20/24) Ileus, unspecified (09/20/24) Acute kidney failure, unspecified (09/20/24) Weakness (09/20/24) Shock, unspecified (09/20/24) Unspecified fall, initial encounter (09/20/24) Subjective Subjective Had BMs and NGT has been removed. Objective Data Objective Data Vital Signs: Vital Signs Temp Pulse Resp BP Pulse Ox O2 Del Method O2 Flow Rate 37.0 C 84 18 132/56 H 96 Room Air 15 10/02/24 06:00 10/02/24 06:00 10/02/24 06:00 10/02/24 06:00 10/02/24 06:00 10/02/24 06:00 09/28/24 06:46 FiO2 35 09/24/24 10:00 Oxygen Flow Rate (L/min) 15 Oxygen Delivery Method Room Air Weight: 116.3 kg Body Mass Index (BMI) 34.7 Intake & Output: Intake and Output for Last 24 Hours 09/30/24 10/01/24 10/02/24 23:59 23:59 23:59 Intake Total 4110 / 4110 3290 / 3290 470 / 470 Output Total 600 / 600 650 / 650 200 / 200 Balance 3510 / 3510 2640 / 2640 270 / 270 Lab / Micro Data 10/02/24 07:04 10/02/24 07:04 Labs: Laboratory Results - last 24 hr 10/01/24 04:40: Triglycerides 93 10/01/24 18:48: POC Glucose 141 H 10/02/24 00:39: POC Glucose 134 H 10/02/24 05:55: POC Glucose 126 H 10/02/24 07:04: WBC 10.1, RBC 2.98 L, Hgb 8.6 L, Hct 28.4 L, MCV 95.3 H, MCH 28.9, MCHC 30.3 L, RDW Std Deviation 57.3 H, RDW Coeff of [place] 18.0 H, Plt Count 246, MPV 10.7, Immature Gran % (Auto) 1.500 H, Neut % (Auto) 80.7 H, Lymph % (Auto) 7.0 L, [place] % (Auto) 8.8, Eos % (Auto) 1.9, Baso % (Auto) 0.1, Absolute Neuts (auto) 8.1 H, Absolute Lymphs (auto) 0.71 L, Nucleated RBC % 0 Micro: Microbiology 09/24/24 08:26 Blood Culture (Wb) - Anticubital Left Blood Culture - Final No growth in 5 days. 09/24/24 11:50 Urine Catheter - Little Urine Culture - Final Culture exhibits no growth. 09/20/24 20:00 Blood Culture (Wb) - Left Hand Blood Culture - Final No growth in 5 days. 09/20/24 20:05 Blood Culture (Wb) - Other Blood Culture - Final No growth in 5 days. 09/25/24 18:30 Gastric Fluid/Contents Gastric Occult Blood - Final Occult Blood Positive 09/20/24 23:10 Mucosa - Nasopharyngeal Respiratory Panel (PCR) - Final 09/20/24 18:20 Mucosa - Nose SARS-CoV-2, Influenza & RSV (PCR) - Final Radiography Diagnostic Testing: Radiology Impression KUB X-Ray 10/01/24 07:40 IMPRESSION: Contrast is seen within the colon. Improved aeration of the small bowel loops with less distention. Findings suggestive of an ileus pattern. Electronically Signed: Erick Hudson MD at 9:00 EST , Rhythm Strip Rhythm Strip: Sinus Tach Rate: 105 Ectopy: None Physical Exam Const alert Orientation / Consciousness: confused HEENT head/scalp atraumatic and moist oral mucous membranes Resp normal respiratory effort, no retractions, no use of accessory muscles and clear to auscultation bilaterally Cardio regular rate, regular rhythm, S1 normal heart sound and S2 normal heart sound GI normal to inspection, nondistended, normoactive bowel sounds, soft to palpation, non-tender and non-distended Assessment & Plan Assessment/Plan (1) Ileus: (2) Encephalopathy acute: (3) Shock: PLAN: Plan Shock 2/2 hypovolemia and possible sepsis. Resolved responded well with IV fluids infectious work up thus far negative. has been on meropenem since the . [facility] recommending a 7-day course of abx. Ileus SBO ruled out NGT removed. NPO until evaluated by [facility] general surgery following. Had BMs with enemas. Continuing to monitor. No plans for surgery at this time. on metoclopramide Metabolic encephalopathy 2/2 to [address] head CT negative Has required quetiapine to help calm him. ALEX POA improved with IVF. IVF held since TPN started. Anemia Hg was 11.5 in July. Initial Hg was 10.1 and since dropped to 6.5. He has required 2 units of PRBCs. Heme positive stool. Apixaban has been held. Monitor. Debility: max assist. additional therapy recommended (likely SNF) when medically ready. Chronic conditions: hypothyroidism: levothyroxine BPH: tamsulosin Malnutrition: has been NPO since the , will initiate TPN. Will require PICC line. Continue TPN until deemed safe to eat. VTE prophylaxis: SCDs Charges/Coding Visit Charges Inpatient E&M: 22111 Subs Hosp L2
[2024-10-02 07:49] LABS: ALB/GLOB Ratio 0.6 RATIO (0.9-2.4); AST(SGOT) 81 U/L (15-37); Alanine Aminotransfer ALT/SGPT 76 U/L (16-61); Albumin, Serum 2.1 g/dL (3.2-5.0); Alkaline Phosphatase 85 U/L (45-117); Anion Gap 5 (5-15); BUN 20 mg/dL (7-18); BUN/Creat Ratio 23.4 RATIO (10-20); Calcium,Total 8.5 mg/dL (8.5-10.1); Chloride 115 mmol/L (98-107); Creatinine, Serum 0.85 mg/dL (0.70-1.30); EST Glomerular Filtration Rate 91 mL/min (>60); Est Glom Filt Rate - Afr Amer 110 mL/min (>60); Estimated Creatinine Clearance 88.21 ml/min; Globulin 3.5 g/dL (2.2-4.2); Glucose 129 mg/dL (74-106); Potassium 4.1 mmol/L (3.5-5.1); Protein, Total 5.6 g/dL (6.4-8.2); Sodium Level 144 mmol/L (136-145)
[2024-10-02 07:50] LABS: Phosphorus 2.5 mg/dL (2.5-4.9)
[2024-10-02 12:26] LABS: Bedside Glucose 111 mg/dL (74-106)
[2024-10-02 17:29] LABS: Bedside Glucose 121 mg/dL (74-106)
[2024-10-02] MEDS: TPN - Clinimix E 8%-14% Soln 2,000 ML with Multivitamins 10 ML, Trace Elements 1 ML, Fo... 42 ML IV (22:46)
[2024-10-03] VITALS (9 sets, daily range): BP systolic 115–166; BP diastolic 37–75; PULSE 70–95; RESP 15–20; TEMP 36.3–36.9; O2SAT 95–98
[2024-10-03] MEDS: Metoclopramide 10 MG/2 ML Vial 5 MG IV ×4 (00:46→17:19)
[2024-10-03] MEDS: Pantoprazole Sodium 80 MG in 0.9% Normal Saline (100mL Bag) 80 ML 10 MG CONT INF ×2 (00:56→11:42)
[2024-10-03 00:59] LABS: Bedside Glucose 100 mg/dL (74-106)
[2024-10-03] MEDS: Tamsulosin HCl 0.4 MG Capsule PO ×3 (01:50→22:25)
[2024-10-03] MEDS: Meropenem 1 GM in 0.9% Normal Saline (100mL MB+) 100 ML IV ×2 (05:20→14:34)
[2024-10-03 06:07] LABS: Bedside Glucose 121 mg/dL (74-106)
[2024-10-03] MEDS: Budesonide Respules 0.5 MG/2 ML AMPUL.NEB. INHALATION ×2 (07:21→19:52)
[2024-10-03] MEDS: Albuterol 2.5 MG/3 ML VIAL.NEB. INHALATION ×3 (07:21→19:51)
[2024-10-03 07:24] LABS: ALB/GLOB Ratio 0.6 RATIO (0.9-2.4); AST(SGOT) 60 U/L (15-37); Alanine Aminotransfer ALT/SGPT 68 U/L (16-61); Albumin, Serum 2.1 g/dL (3.2-5.0); Alkaline Phosphatase 87 U/L (45-117); Anion Gap 4 (5-15); BUN 22 mg/dL (7-18); BUN/Creat Ratio 27.8 RATIO (10-20); Calcium,Total 8.4 mg/dL (8.5-10.1); Chloride 111 mmol/L (98-107); Creatinine, Serum 0.79 mg/dL (0.70-1.30); EST Glomerular Filtration Rate 99 mL/min (>60); Est Glom Filt Rate - Afr Amer 120 mL/min (>60); Estimated Creatinine Clearance 93.73 ml/min; Globulin 3.5 g/dL (2.2-4.2); Glucose 122 mg/dL (74-106); Magnesium 1.8 mg/dL (1.6-2.6); Phosphorus 2.3 mg/dL (2.5-4.9); Potassium 3.9 mmol/L (3.5-5.1); Protein, Total 5.6 g/dL (6.4-8.2); Sodium Level 142 mmol/L (136-145)
[2024-10-03] MEDS: Aspirin E.C. 81 MG Tablet PO (07:37)
--- NOTE | 2024-10-03 08:36 | PN.HOSP_ITS ---
Reason for Visit Reason for Visit: Diagnoses Encephalopathy, unspecified (09/20/24) Hypotension, unspecified (09/20/24) Unspecified intestinal obstruction, unspecified as to partial versus complete obstruction (09/20/24) Ileus, unspecified (09/20/24) Acute kidney failure, unspecified (09/20/24) Weakness (09/20/24) Shock, unspecified (09/20/24) Unspecified fall, initial encounter (09/20/24) Subjective Subjective Tolerating diet. Denies abdominal pain. Objective Data Objective Data Vital Signs: Vital Signs Temp Pulse Resp BP Pulse Ox O2 Del Method O2 Flow Rate 36.3 C L 84 16 127/52 H 97 Room Air 15 10/03/24 07:35 10/03/24 07:35 10/03/24 07:35 10/03/24 07:35 10/03/24 07:35 10/03/24 07:35 09/28/24 06:46 FiO2 35 09/24/24 10:00 Oxygen Flow Rate (L/min) 15 Oxygen Delivery Method Room Air Weight: 116.3 kg Body Mass Index (BMI) 34.7 Intake & Output: Intake and Output for Last 24 Hours 10/01/24 10/02/24 10/03/24 23:59 23:59 23:59 Intake Total 3290 / 3290 2081.9 / 2081.9 700 / 700 Output Total 650 / 650 525 / 525 300 / 300 Balance 2640 / 2640 1556.9 / 1556.9 400 / 400 Lab / Micro Data 10/02/24 07:04 10/03/24 06:20 Labs: Laboratory Results - last 24 hr 09/28/24 07:45: Crossmatch See Detail 10/02/24 11:57: POC Glucose 111 H 10/02/24 17:08: POC Glucose 121 H 10/03/24 00:38: POC Glucose 100 10/03/24 05:50: POC Glucose 121 H 10/03/24 06:20: Sodium 142, Potassium 3.9, Chloride 111 H, Carbon Dioxide 27.0, Anion Gap 4 L, BUN 22 H, Creatinine 0.79, Estim Creat Clear Calc 93.73, Est GFR (MDRD) Af Amer 120, Est GFR (MDRD) Non-Af 99, BUN/Creatinine Ratio 27.8 H, G lucose 122 H, Calcium 8.4 L, Phosphorus 2.3 L, Magnesium 1.8, Total Bilirubin 1.60 H, AST 60 H, ALT 68 H, Alkaline Phosphatase 87, Total Protein 5.6 L, A lbumin 2.1 L, Globulin 3.5, Albumin/Globulin Ratio 0.6 L Micro: Microbiology 09/24/24 08:26 Blood Culture (Wb) - Anticubital Left Blood Culture - Final No growth in 5 days. 09/24/24 11:50 Urine Catheter - Little Urine Culture - Final Culture exhibits no growth. 09/20/24 20:00 Blood Culture (Wb) - Left Hand Blood Culture - Final No growth in 5 days. 09/20/24 20:05 Blood Culture (Wb) - Other Blood Culture - Final No growth in 5 days. 09/25/24 18:30 Gastric Fluid/Contents Gastric Occult Blood - Final Occult Blood Positive 09/20/24 23:10 Mucosa - Nasopharyngeal Respiratory Panel (PCR) - Final 09/20/24 18:20 Mucosa - Nose SARS-CoV-2, Influenza & RSV (PCR) - Final Rhythm Strip Rhythm Strip: Sinus Tach Rate: 105 Ectopy: None Physical Exam Const Constitutional Narrative: comfortable. afebrile. nonxtoxic. pleasant. HEENT head/scalp atraumatic and moist oral mucous membranes Resp normal respiratory effort, no retractions, no use of accessory muscles and clear to auscultation bilaterally Cardio regular rate, regular rhythm, S1 normal heart sound and S2 normal heart sound GI normal to inspection, nondistended, normoactive bowel sounds, soft to palpation, non-tender and non-distended Assessment & Plan Assessment/Plan (1) Ileus: (2) Encephalopathy acute: (3) Shock: PLAN: Plan Shock * 2/2 hypovolemia and possible sepsis. Resolved * responded well with IV fluids * infectious work up thus far negative. * has been on meropenem since the . [facility] recommending a 7-day course of abx. Ileus * SBO ruled out * NGT removed. * tolerating diet. Metabolic encephalopathy * 2/2 to underlying issues. * head CT negative * Has required quetiapine to help calm him. ALEX * POA * improved with IVF. IVF held since TPN started. Anemia * Hg was 11.5 in July. Initial Hg was 10.1 and since dropped to 6.5. He has required 2 units of PRBCs. Heme positive stool. Apixaban has been held. * Monitor. Debility: * max assist. * additional therapy recommended (likely SNF) when medically ready. Chronic conditions: * hypothyroidism: levothyroxine * BPH: tamsulosin Malnutrition: * has been NPO since the , will initiate TPN. Will require PICC line. Continue TPN until deemed safe to eat. Now on CLD. VTE prophylaxis: SCDs Charges/Coding Visit Charges Inpatient E&M: 18338 Subs Hosp L2
--- NOTE | 2024-10-03 09:13 | CASEMGMT ---
Addendum entered by Amalia Hernandez 10/03/24 15:54: [facility] accepted. [facility] declined d/t being out of network. Awaiting return call from pts daughter for snf choice. Amalia Hernandez DC Planning Asst. Original Note: Referral sent to [facility], and [facility]. Amalia Hernandez DC Planning Asst.
--- NOTE | 2024-10-03 10:30 | CASEMGMT ---
Call placed to Isabela to follow up on snf referrals but call went to and box is full. Call placed to pts other daughter, Amalia. left for her. Amalia Hernandez DC Planning Asst.
--- NOTE | 2024-10-03 10:33 | PN.SURG_ITS ---
Subjective Subjective Patient evaluated resting comfortably in the chair. He is alert in the chair. Patient denies any abdominal pain. He denies any flatus or bowel movement. Objective Data Objective Data Vital Signs: Vital Signs Temp Pulse Resp BP Pulse Ox O2 Del Method O2 Flow Rate 97.4 F L 84 16 127/52 H 97 Room Air 15 10/03/24 07:35 10/03/24 07:35 10/03/24 07:35 10/03/24 07:35 10/03/24 07:35 10/03/24 07:35 09/28/24 06:46 FiO2 35 09/24/24 10:00 Oxygen Flow Rate (L/min) 15 Oxygen Delivery Method Room Air Weight: 256 lb 6.362 oz Body Mass Index (BMI) 34.7 Intake & Output: Intake and Output for Last 24 Hours 10/01/24 10/02/24 10/03/24 23:59 23:59 23:59 Intake Total 3290 / 3290 2081.9 / 2081.9 700 / 700 Output Total 650 / 650 525 / 525 300 / 300 Balance 2640 / 2640 1556.9 / 1556.9 400 / 400 Lab / Micro Data 10/02/24 07:04 10/03/24 06:20 Labs: Laboratory Results - last 24 hr 09/28/24 07:45: Crossmatch See Detail 10/02/24 11:57: POC Glucose 111 H 10/02/24 17:08: POC Glucose 121 H 10/03/24 00:38: POC Glucose 100 10/03/24 05:50: POC Glucose 121 H 10/03/24 06:20: Sodium 142, Potassium 3.9, Chloride 111 H, Carbon Dioxide 27.0, Anion Gap 4 L, BUN 22 H, Creatinine 0.79, Estim Creat Clear Calc 93.73, Est GFR (MDRD) Af Amer 120, Est GFR (MDRD) Non-Af 99, BUN/Creatinine Ratio 27.8 H, G lucose 122 H, Calcium 8.4 L, Phosphorus 2.3 L, Magnesium 1.8, Total Bilirubin 1.60 H, AST 60 H, ALT 68 H, Alkaline Phosphatase 87, Total Protein 5.6 L, A lbumin 2.1 L, Globulin 3.5, Albumin/Globulin Ratio 0.6 L Micro: Microbiology 09/24/24 08:26 Blood Culture (Wb) - Anticubital Left Blood Culture - Final No growth in 5 days. 09/24/24 11:50 Urine Catheter - Little Urine Culture - Final Culture exhibits no growth. 09/20/24 20:00 Blood Culture (Wb) - Left Hand Blood Culture - Final No growth in 5 days. 09/20/24 20:05 Blood Culture (Wb) - Other Blood Culture - Final No growth in 5 days. 09/25/24 18:30 Gastric Fluid/Contents Gastric Occult Blood - Final Occult Blood Positive 09/20/24 23:10 Mucosa - Nasopharyngeal Respiratory Panel (PCR) - Final 09/20/24 18:20 Mucosa - Nose SARS-CoV-2, Influenza & RSV (PCR) - Final Rhythm Strip Rhythm Strip: Sinus Tach Rate: 105 Ectopy: None Physical Exam GI GI Narrative: Abdomen- soft, nontender. Obese abdomen. Hypoactive bowel sounds Assessment & Plan Assessment/Plan (1) Ileus: PLAN: I am following this patient in conjunction with Dr. Justice. She will independently evaluate this patient. Labs reviewed Increase diet to include solid foods Continue with ambulation We will continue to monitor this patient Charges/Coding Visit Charges Inpatient E&M: 57585 Subs Hosp L1
--- NOTE | 2024-10-03 11:39 | CASEMGMT ---
Addendum entered by Gaby Samayoa 10/03/24 16:17: [facility]tr [facility]; precert started. Plan: [facility]; pend precert KIKI Melendez Original Note: Social Work- Pt referral was accepted by [facility]. DCA attempting to reach out to family to confirm agreement with proceeding with referral. SW remains available to follow. KIKI Melendez
[2024-10-03] MEDS: 0.9% Saline Lock 10 ML Syringe IV ×3 (12:35→22:25)
[2024-10-03 12:55] LABS: Bedside Glucose 120 mg/dL (74-106)
[2024-10-03] MEDS: 0.9% Normal Saline 100 ML IV.SOLN. IV (14:36)
--- NOTE | 2024-10-03 16:16 | CASEMGMT ---
Pts daughter (Isabela) has chosen [facility]. All snfs notified. [facility] asked to submit for precert. SW updated. Amalia Hernandez DC Planning Asst.
[2024-10-03 17:33] LABS: Bedside Glucose 111 mg/dL (74-106)
--- NOTE | 2024-10-03 17:47 | NURSING ---
PTS DAUGHTER, HENOK, CALLED TO CHECK ON HIM AND THEN WE TRANSFERRED THE CALL TO THE ROOM AND SHE SPOKE W/HIM
[2024-10-04] VITALS (9 sets, daily range): BP systolic 133–151; BP diastolic 46–57; PULSE 80–96; RESP 16–20; TEMP 36.4–36.7; O2SAT 92–97; BMI 34.7
[2024-10-04] MEDS: Meropenem 1 GM in 0.9% Normal Saline (100mL MB+) 100 ML IV ×4 (00:27→22:17)
[2024-10-04] MEDS: Metoclopramide 10 MG/2 ML Vial 5 MG IV ×4 (00:28→17:13)
[2024-10-04] MEDS: 0.9% Saline Lock 10 ML Syringe IV ×3 (00:28→22:15)
[2024-10-04 01:55] LABS: Bedside Glucose 105 mg/dL (74-106)
[2024-10-04] MEDS: Pantoprazole Sodium 80 MG in 0.9% Normal Saline (100mL Bag) 80 ML 10 MG CONT INF (02:37)
[2024-10-04 07:09] LABS: ALB/GLOB Ratio 0.6 RATIO (0.9-2.4); AST(SGOT) 73 U/L (15-37); Alanine Aminotransfer ALT/SGPT 80 U/L (16-61); Albumin, Serum 1.9 g/dL (3.2-5.0); Alkaline Phosphatase 87 U/L (45-117); Anion Gap 5 (5-15); BUN 26 mg/dL (7-18); BUN/Creat Ratio 30.6 RATIO (10-20); Chloride 112 mmol/L (98-107); Creatinine, Serum 0.85 mg/dL (0.70-1.30); EST Glomerular Filtration Rate 92 mL/min (>60); Est Glom Filt Rate - Afr Amer 111 mL/min (>60); Estimated Creatinine Clearance 88.21 ml/min; Globulin 3.3 g/dL (2.2-4.2); Glucose 115 mg/dL (74-106); Magnesium 1.7 mg/dL (1.6-2.6); Phosphorus 2.1 mg/dL (2.5-4.9); Protein, Total 5.2 g/dL (6.4-8.2); Sodium Level 142 mmol/L (136-145)
[2024-10-04] MEDS: Albuterol 2.5 MG/3 ML VIAL.NEB. INHALATION ×3 (07:09→19:55)
[2024-10-04] MEDS: Budesonide Respules 0.5 MG/2 ML AMPUL.NEB. INHALATION ×2 (07:09→19:55)
--- NOTE | 2024-10-04 07:51 | PN.SURG_ITS ---
Subjective Subjective Patient evaluated resting comfortably in bed. He is alert. He denies abdominal pain, nausea, vomiting. Per nursing staff, patient's last large bowel movement was on 10/02 into 10/03 during the night. Patient is tolerating his current diet. Objective Data Objective Data Vital Signs: Vital Signs Temp Pulse Resp BP Pulse Ox O2 Del Method O2 Flow Rate 97.5 F L 88 20 H 151/57 H 96 Room Air 15 10/04/24 05:21 10/04/24 05:10/04/24 05:21 10/04/24 05:21 10/04/24 05:21 10/04/24 05:09/28/24 06:46 FiO2 35 09/24/24 10:00 Oxygen Flow Rate (L/min) 15 Oxygen Delivery Method Room Air Weight: 256 lb 6.362 oz Body Mass Index (BMI) 34.7 Intake & Output: Intake and Output for Last 24 Hours 10/02/24 10/03/24 10/04/24 23:59 23:59 23:59 Intake Total 2081.9 / 2081.9 1640 / 1640 320 / 320 Output Total 525 / 525 700 / 900 400 / 400 Balance 1556.9 / 1556.9 940 / 740 -80 / -80 Lab / Micro Data 10/02/24 07:04 10/04/24 06:00 Labs: Laboratory Results - last 24 hr 10/03/24 12:32: POC Glucose 120 H 10/03/24 17:15: POC Glucose 111 H 10/04/24 00:43: POC Glucose 105 10/04/24 06:00: Sodium 142, Potassium 4.0, Chloride 112 H, Carbon Dioxide 25.0, Anion Gap 5, BUN 26 H, Creatinine 0.85, Estim Creat Clear Calc 88.21, Est GFR (MDRD) Af Amer 111, Est GFR (MDRD) Non-Af 92, BUN/Creatinine Ratio 30.6 H, G lucose 115 H, Calcium 8.0 L, Phosphorus 2.1 L, Magnesium 1.7, Total Bilirubin 1.40 H, AST 73 H, ALT 80 H, Alkaline Phosphatase 87, Total Protein 5.2 L, A lbumin 1.9 L, Globulin 3.3, Albumin/Globulin Ratio 0.6 L Micro: Microbiology 09/24/24 08:26 Blood Culture (Wb) - Anticubital Left Blood Culture - Final No growth in 5 days. 09/24/24 11:50 Urine Catheter - Little Urine Culture - Final Culture exhibits no growth. 09/20/24 20:00 Blood Culture (Wb) - Left Hand Blood Culture - Final No growth in 5 days. 09/20/24 20:05 Blood Culture (Wb) - Other Blood Culture - Final No growth in 5 days. 09/25/24 18:30 Gastric Fluid/Contents Gastric Occult Blood - Final Occult Blood Positive 09/20/24 23:10 Mucosa - Nasopharyngeal Respiratory Panel (PCR) - Final 09/20/24 18:20 Mucosa - Nose SARS-CoV-2, Influenza & RSV (PCR) - Final Rhythm Strip Rhythm Strip: Sinus Tach Rate: 105 Ectopy: None Physical Exam GI GI Narrative: Abdomen- soft, obese, hypoactive bowel sounds, nontender Assessment & Plan Assessment/Plan (1) Ileus: PLAN: I am following this patient in conjunction with Dr. Romo in Dr. Justice's absence. He has independently evaluated this patient. Patient seems to be tolerating a regular diet He is having loose stools Will obtain a KUB for re-evaluation Plan for calorie counts Will transition IV Protonix to oral. Plan to continue PPI daily as an outpatient Patient no longer needs IV antibiotics from a surgery standpoint Patient seems to be progressing enough to be discharged to rehabilitation facility No surgical intervention is being recommended at this time Patient will not have to follow-up with surgery as an outpatient Patient is okay from a surgery standpoint to be discharged tomorrow Charges/Coding Visit Charges Inpatient E&M: 86958 Subs Hosp L1
[2024-10-04] MEDS: Tamsulosin HCl 0.4 MG Capsule PO ×2 (07:55→22:19)
[2024-10-04] MEDS: Aspirin E.C. 81 MG Tablet PO (07:55)
--- NOTE | 2024-10-04 08:43 | PN.HOSP_ITS ---
Reason for Visit Reason for Visit: Diagnoses Encephalopathy, unspecified (09/20/24) Hypotension, unspecified (09/20/24) Unspecified intestinal obstruction, unspecified as to partial versus complete obstruction (09/20/24) Ileus, unspecified (09/20/24) Acute kidney failure, unspecified (09/20/24) Weakness (09/20/24) Shock, unspecified (09/20/24) Unspecified fall, initial encounter (09/20/24) Subjective Subjective Tolerating PO. Denies abdominal pain. Objective Data Objective Data Vital Signs: Vital Signs Temp Pulse Resp BP Pulse Ox O2 Del Method O2 Flow Rate 36.4 C L 86 16 151/57 H 97 Room Air 15 10/04/24 05:21 10/04/24 07:09 10/04/24 07:09 10/04/24 05:21 10/04/24 07:09 10/04/24 07:09 09/28/24 06:46 FiO2 35 09/24/24 10:00 Oxygen Flow Rate (L/min) 15 Oxygen Delivery Method Room Air Weight: 116.3 kg Body Mass Index (BMI) 34.7 Intake & Output: Intake and Output for Last 24 Hours 10/02/24 10/03/24 10/04/24 23:59 23:59 23:59 Intake Total 2081.9 / 2081.9 1640 / 1640 1764.43 / 1764.43 Output Total 525 / 525 700 / 900 400 / 400 Balance 1556.9 / 1556.9 940 / 740 1364.43 / 1364.43 Lab / Micro Data 10/02/24 07:04 10/04/24 06:00 Labs: Laboratory Results - last 24 hr 10/03/24 12:32: POC Glucose 120 H 10/03/24 17:15: POC Glucose 111 H 10/04/24 00:43: POC Glucose 105 10/04/24 06:00: Sodium 142, Potassium 4.0, Chloride 112 H, Carbon Dioxide 25.0, Anion Gap 5, BUN 26 H, Creatinine 0.85, Estim Creat Clear Calc 88.21, Est GFR (MDRD) Af Amer 111, Est GFR (MDRD) Non-Af 92, BUN/Creatinine Ratio 30.6 H, G lucose 115 H, Calcium 8.0 L, Phosphorus 2.1 L, Magnesium 1.7, Total Bilirubin 1.40 H, AST 73 H, ALT 80 H, Alkaline Phosphatase 87, Total Protein 5.2 L, A lbumin 1.9 L, Globulin 3.3, Albumin/Globulin Ratio 0.6 L Micro: Microbiology 09/24/24 08:26 Blood Culture (Wb) - Anticubital Left Blood Culture - Final No growth in 5 days. 09/24/24 11:50 Urine Catheter - Little Urine Culture - Final Culture exhibits no growth. 09/20/24 20:00 Blood Culture (Wb) - Left Hand Blood Culture - Final No growth in 5 days. 09/20/24 20:05 Blood Culture (Wb) - Other Blood Culture - Final No growth in 5 days. 09/25/24 18:30 Gastric Fluid/Contents Gastric Occult Blood - Final Occult Blood Positive 09/20/24 23:10 Mucosa - Nasopharyngeal Respiratory Panel (PCR) - Final 09/20/24 18:20 Mucosa - Nose SARS-CoV-2, Influenza & RSV (PCR) - Final Rhythm Strip Rhythm Strip: Sinus Tach Rate: 105 Ectopy: None Physical Exam Const alert and no apparent distress HEENT head/scalp atraumatic and moist oral mucous membranes Resp normal respiratory effort, no retractions, no use of accessory muscles and clear to auscultation bilaterally Cardio regular rate, regular rhythm, S1 normal heart sound and S2 normal heart sound GI normal to inspection, nondistended, normoactive bowel sounds, soft to palpation, non-tender and non-distended Extremity normal to inspection and full ROM Neuro Sensorium / Orientation: awake Assessment & Plan Assessment/Plan (1) Ileus: (2) Encephalopathy acute: (3) Shock: PLAN: Plan Shock * 2/2 hypovolemia and possible sepsis. Resolved * responded well with IV fluids * infectious work up thus far negative. * has been on meropenem since the . [facility] recommending a 7-day course of abx. Ileus * SBO ruled out * NGT removed. * tolerating diet. Metabolic encephalopathy * improving. * 2/2 to underlying issues. * head CT negative * Has required quetiapine to help calm him. ALEX * POA * improved with IVF. Anemia * Hg was 11.5 in July. Initial Hg was 10.1 and since dropped to 6.5. He has required 2 units of PRBCs. Heme positive stool. Apixaban has been held. * Monitor. Debility: * max assist. * additional therapy recommended (likely SNF) when medically ready. Chronic conditions: * hypothyroidism: levothyroxine * BPH: tamsulosin Malnutrition: * Had been on TPN while NPO. Since discontinued now that he is tolerating diet. Now on CLD. VTE prophylaxis: SCDs Disposition to SNF pending insurance authorization. Charges/Coding Visit Charges Inpatient E&M: 70561 Subs Hosp L2
[2024-10-04] MEDS: Pantoprazole Sodium 40 MG Tablet PO ×2 (09:23→22:19)
[2024-10-04] MEDS: Menthol/Lanolin/Calamine/Znox 113 GM Tube 1 APPLIC TOPICAL ×2 (09:23→22:15)
[2024-10-04] MEDS: Levothyroxine 150 MCG Tablet PO (09:23)
[2024-10-04] MEDS: Ensure Plus High Protein 120 ML LIQUID PO ×2 (11:01→16:45)
--- NOTE | 2024-10-04 13:55 | RAD_ITS ---
STUDY: X-RAY - ABDOMEN/PELVIS REASON FOR EXAM: Male, 83 years old. Abdominal distention TECHNIQUE: Single AP view of the abdomen / pelvis. COMPARISON: Comparison is made with prior study dated October 02, 2024. FINDINGS: Persistent increased markings at the lung bases suggestive of bibasilar atelectasis. Residual contrast is seen throughout the colon. No evidence of bowel obstruction. Moderate gaseous distention of the stomach. The visualized liver, spleen and kidneys are grossly normal in size and morphology. Normal soft tissue structures. There are diffuse degenerative changes of the visualized lumbar spine. RAD/Abd Inc Decub and/or Erect IMPRESSION: Moderate gaseous distention of the stomach. Contrast is seen throughout the colon down to the rectum. Findings suggest mild ileus pattern. Electronically Signed: Erick Hudson MD at 14:23 EST ,
--- NOTE | 2024-10-04 14:44 | CASEMGMT ---
Social Work SW spoke with pt dgts regarding advance directives. Pt does not have advance directives in place and unable to complete at this time due to cognitive impairment. KIKI Walton
--- NOTE | 2024-10-04 15:50 | CASEMGMT ---
[place] Joshi has obtained auth to admit. SW updated. Amalia Hernandez DC Planning Asst.
--- NOTE | 2024-10-04 16:10 | CASEMGMT ---
Social Work Precert has been obtained for admission to [facility]. Surgery notes indicate pt will be ready for DC tomorrow. JEFFREY updated hospitalist. JEFFREY spoke with pt dgt Isabela on the phone. JEFFREY explained that dc is planned for tomorrow. Isabela states she is planning on visiting [facility] at this time to confirm she wants pt to go there. JEFFREY explained that if once there, and if pt is unhappy, [facility] can assist pt in moving to a different SNF. Iasbela will leave for this SW tonight after visit. JEFFREY will follow up tomorrow for dc. Plan: [facility], when medically ready KIKI Walton
[2024-10-05 02:27] VITALS: BP 135/64; PULSE 89; RESP 18; TEMP 36.3; O2SAT 94
[2024-10-05] MEDS: Meropenem 1 GM in 0.9% Normal Saline (100mL MB+) 100 ML IV (05:21)
[2024-10-05] MEDS: Metoclopramide 10 MG/2 ML Vial 5 MG IV (05:22)
[2024-10-05] MEDS: 0.9% Saline Lock 10 ML Syringe IV (05:23)
[2024-10-05] MEDS: Levothyroxine 150 MCG Tablet PO (05:24)
[2024-10-05 05:33] VITALS: BMI 34.7
[2024-10-05 07:41] VITALS: PULSE 82; RESP 24; O2SAT 91
[2024-10-05] MEDS: Budesonide Respules 0.5 MG/2 ML AMPUL.NEB. INHALATION (07:41)
[2024-10-05] MEDS: Albuterol 2.5 MG/3 ML VIAL.NEB. INHALATION (07:42)
--- NOTE | 2024-10-05 08:54 | TREXTCAR_ITS ---
Diet Diet Order/Speech Therapy: 10/03/24 09:49 Diet: Consistent Carb - Calorie Controlled Food consistency:: Easy to Chew Liquid Consistency:: Regular/Thin Dietary Modifications:: Fiber Restricted Diet Comments: Distant supervision, pt sitting upright How many daily calories?: 1999 calorie Routine Orders/Code Status Code Status: DNRCC-A (no intubtion) DC O2, CPAP, BIPAP needs Home O2 Discharge instructions: No Wound(s) Lateral right knee: Wound Type: Skin Tear Right Elbow: Wound Type: Skin Tear Right Breast: Wound Type: Skin Tear Right lateral abdomen: Wound Type: Skin Tear Right Chest: Wound Type: previous central line site right hand: Wound Type: Skin Tear left inner knee: Wound Type: Abrasion Left Lower leg: Wound Type: Skin Tear R AC: Wound Type: Skin Tear L AC: Wound Type: Skin Tear Therapies Weight Bearing: Full weight bearing Physical Therapy: Eval and Treat Occupational Therapy: Eval and Treat Speech Therapy: Eval and Treat Problem/Diagnosis (1) Ileus: Status: Acute Code(s): K56.7 - Ileus, unspecified (2) Encephalopathy acute: Status: Acute Code(s): G93.40 - Encephalopathy, unspecified (3) Shock: Status: Acute Code(s): R57.9 - Shock, unspecified Plan Shock * 2/2 hypovolemia. Resolved * responded well with IV fluids * infectious work up thus far negative. * has been on meropenem since the . [facility] recommending a 7-day course of abx. Ileus * SBO ruled out * NGT removed. * tolerating diet. Metabolic encephalopathy * improving. * 2/2 to underlying issues. * head CT negative * Has required quetiapine to help calm him. ALEX * POA * improved with IVF. Anemia * Hg was 11.5 in July. Initial Hg was 10.1 and since dropped to 6.5. He has required 2 units of PRBCs. Heme positive stool. Apixaban has been held. * Monitor. Debility: * max assist. * additional therapy recommended (likely SNF) when medically ready. Chronic conditions: * hypothyroidism: levothyroxine * BPH: tamsulosin Malnutrition: * Had been on TPN while NPO. Since discontinued now that he is tolerating diet. Now on CLD. VTE prophylaxis: SCDs Allergies/Procedures Done in Hospital Allergies atorvastatin (From Lipitor) Adverse Reaction (Intermediate, Verified 08/07/24 08:41) Other heart Dr told him not to take Procedures: None Type of Care/Length of Stay Estimated LOS: Convalescent Care Less Than 30 days Type of Care Needed: Skilled Rehab Potential: Fair Prognosis: Good Additional Orders/Day of Discharge Day of Discharge: 10/05/24 Dietary and Speech Recommendations Dietitian Recommendations/Changes: TPN last bag currently infusin L 8% AA/14% dextrose to provide 798kcal, 140 grams dextrose, and 80 grams protein. Continue 2000 sonny CHO Control/Low Fiber diet with consistency/texture adjustment as needed per RN ACUTE when medically able. Monitor for signs and symptoms of refeeding syndrome d/t NPO since 09/25. ONS as needed once PO established with meals. Speech Linguistic Eval Summary: Per RN, patient confused and lethargic with difficulty remain alert for longer than seconds at a time. Informal cognitive assessment revealed patient orientated to self, , and address. Disoriented to place, time, and situation. Does not attempt to respond to additional questions other than yes/no, with variable in accuracy (3/6). No attempt to follow 1-step commands. Requires verbal and tactile cues to remain alert. Sustained attention <15 seconds. Continued assessment of cognitive linguistic skills warranted to assist with discharge recommendations. RN reports patient taking medications whole, individually with liquid wash without dysphagia, and states he was placed on a full liquid diet due to cognitive status. Discharge Plan Admission Admit Date/Time: 09/20/24 21:07 Primary Reason for Your Visit: Ileus Attending Provider: Les Anderson Primary Care Provider: Husam Deras Consulting Providers: Yousif Madden; Diane Justice; Theo Ramirez Discharge Orders/Prescriptions Prescriptions: New Ensure Plus High Protein 0.08 gram-1.5 kcal/mL Liquid 120 ml PO TIDCM Qty: 0 0RF Continued naproxen sodium [Aleve] 220 mg tablet 220 mg PO Q12H PRN atenolol 25 MG tablet 25 mg PO DAILY cetirizine 10 mg tablet 10 mg PO DAILY Patient Comments: TAKE 1 TABLET BY MOUTH ONCE DAILY psyllium husk [Daily Fiber] 0.4 gram Capsule 0.4 g PO DAILY tamsulosin 0.4 mg Capsule 0.4 mg PO BID rosuvastatin 10 mg tablet 10 mg PO QHS Eliquis 5 mg Tablet 5 mg PO BID 60 Days Qty: 120 0RF nitroglycerin 0.4 mg tablet, sublingual 0.4 mg sublingual Q5M PRN (Reason: chest pain) Patient Comments: DISSOLVE ONE TABLET UNDER THE TONGUE EVERY 5 MINUTES FOR 3 TIMES NEEDED FOR CHEST PAIN. lisinopril 20 mg tablet 20 mg PO BID fluticasone propion-salmeterol 250-50 mcg/dose blister with device 1 ea INHALATION BID aspirin [Adult Low Dose Aspirin] 81 mg tablet,delayed release (DR/EC) 81 mg PO DAILY levothyroxine 150 mcg tablet 150 mcg PO DAILY furosemide 20 mg tablet 40 mg PO DAILY albuterol sulfate 90 mcg/actuation HFA aerosol inhaler inhalation gabapentin 400 mg Capsule 400 mg PO TID Referrals / Follow Up: Husam Deras DO [Primary Care Provider] - Within 2 Weeks Disposition Disposition (needs filled in before D/C Order can be placed): [facility]
[2024-10-05] MEDS: Pantoprazole Sodium 40 MG Tablet PO (08:55)
[2024-10-05] MEDS: Tamsulosin HCl 0.4 MG Capsule PO (08:55)
[2024-10-05] MEDS: Ensure Plus High Protein 120 ML LIQUID PO (08:55)
[2024-10-05] MEDS: Aspirin E.C. 81 MG Tablet PO (08:56)
[2024-10-05] MEDS: Menthol/Lanolin/Calamine/Znox 113 GM Tube 1 APPLIC TOPICAL (08:56)
--- NOTE | 2024-10-05 09:01 | DS.PCM_ITS ---
Providers Date of Admission: 09/20/24 Primary Care Physician: Dr. Husam Deras, Consultations 09/24/24 09:22 Consult: Recording Studio Set Up Worker / Pulmonary Medicine Routine Consulting Provider: Intensivists/Pulmonary Med Reason for Consult: shock EMERGENT Consult: Yes Notified: Yes Date Notified: 09/24/24 Time Notified: 09:00 Method of Notification: Verbal 09/26/24 09:38 Consult: General Surgery Routine Consulting Provider: Diane Justice Reason for Consult: Small bowel obstruction EMERGENT Consult: No Notified: Yes Date Notified: 09/26/24 Time Notified: 09:39 Method of Notification: Verbal Reason For Visit: FALL WITH DEHYDRATION AND ALEX Diagnosis Discharge Diagnosis (1) Ileus: Status: Acute Code(s): K56.7 - Ileus, unspecified (2) Encephalopathy acute: Status: Acute Code(s): G93.40 - Encephalopathy, unspecified (3) Shock: Status: Acute Code(s): R57.9 - Shock, unspecified Plan Shock * 2/2 hypovolemia. Resolved * responded well with IV fluids * infectious work up thus far negative. * has been on meropenem since the . [facility] recommending a 7-day course of abx. Ileus * SBO ruled out * NGT removed. * tolerating diet. Metabolic encephalopathy * improving. * 2/2 to underlying issues. * head CT negative * Has required quetiapine to help calm him. ALEX * POA * improved with IVF. Anemia * Hg was 11.5 in July. Initial Hg was 10.1 and since dropped to 6.5. He has required 2 units of PRBCs. Heme positive stool. Apixaban has been held. * Monitor. Possible aspiration pnuemonia * completed course of meropenem. Debility: * max assist. * additional therapy recommended Chronic conditions: * hypothyroidism: levothyroxine * BPH: tamsulosin Malnutrition: * Had been on TPN while NPO. Since discontinued now that he is tolerating diet. Now on CLD. VTE prophylaxis: SCDs Medications at Discharge Home Medications atenolol 25 mg tablet 25 mg PO DAILY blood pressure 10/10/17 cetirizine 10 mg tablet 10 mg PO DAILY allergies 11/03/21 psyllium husk 0.4 gram capsule (Daily Fiber) 0.4 g PO DAILY fiber 12/24/21 tamsulosin 0.4 mg capsule 0.4 mg PO BID prostate 12/24/21 rosuvastatin 10 mg tablet 10 mg PO QHS cholesterol 09/14/23 apixaban 5 mg tablet (Eliquis) 5 mg PO BID pvd 60 days #120 tabs 09/17/23 lisinopril 20 mg tablet 20 mg PO BID bp 10/21/23 nitroglycerin 0.4 mg sublingual tablet 0.4 mg sublingual Q5M PRN chest pain 01/25/24 aspirin 81 mg tablet,delayed release (Adult Low Dose Aspirin) 81 mg PO DAILY supplement 07/10/24 fluticasone 250 mcg-salmeterol 50 mcg/dose blistr powdr for inhalation 1 ea inhalation BID asthma 07/10/24 naproxen sodium 220 mg tablet (Aleve) 220 mg PO Q12H PRN 08/07/24 levothyroxine 150 mcg tablet 150 mcg PO DAILY Thyroid 09/20/24 albuterol sulfate 90 mcg/actuation aerosol inhaler inhalation SOB 09/21/24 furosemide 20 mg tablet 40 mg PO DAILY Water Pill 09/21/24 gabapentin 400 mg capsule 400 mg PO TID nerve pain 09/21/24 food supplemt, lactose-reduced 0.08 gram-1.5 kcal/mL oral liquid (Ensure Plus High Protein) 120 ml PO TIDCM #0 mL 10/05/24 Hospital Course Operations None Summary of Care Provided Minutes Spent on Discharge: 32 Hospital Course: This is an 83-year-old male who was found down at home. Patient was hypotensive and did receive IV fluids. He was in shock from hypovolemia. Kidney function did improve with IV fluids. While he was here he developed what was concerning for small bowel obstruction. NG tube was placed. Given his encephalopathy, he did require soft restraints to help prevent him pulling out the NG tube. With suppositories, the patient was feeling better and it was felt to be actually an ileus not small bowel obstruction. NG tube removed patient tolerating diet. Along with that his mental status cleared up likely due to just the discomfort from the NG tube contributing to his encephalopathy and patient with likely dementia. [facility] in [facility] condition. Is concerned about pneumonia as well. Is felt that his shock was hypovolemic and not actually septic shock but patient did clear a course of meropenem. Weight / BMI Weight Weight: 116.4 kg Body Mass Index (BMI) 34.7 ABG / Lab / Microbiology Data 10/02/24 07:04 10/04/24 06:00 Microbiology: Microbiology 09/24/24 08:26 Blood Culture (Wb) - Anticubital Left Blood Culture - Final No growth in 5 days. 09/24/24 11:50 Urine Catheter - Little Urine Culture - Final Culture exhibits no growth. 09/20/24 20:00 Blood Culture (Wb) - Left Hand Blood Culture - Final No growth in 5 days. 09/20/24 20:05 Blood Culture (Wb) - Other Blood Culture - Final No growth in 5 days. 09/25/24 18:30 Gastric Fluid/Contents Gastric Occult Blood - Final Occult Blood Positive 09/20/24 23:10 Mucosa - Nasopharyngeal Respiratory Panel (PCR) - Final 09/20/24 18:20 Mucosa - Nose SARS-CoV-2, Influenza & RSV (PCR) - Final Radiography Diagnostic Testing: Radiology Impression Abdomen X-Ray 10/04/24 13:55 IMPRESSION: Moderate gaseous distention of the stomach. Contrast is seen throughout the colon down to the rectum. Findings suggest mild ileus pattern. Electronically Signed: Erick Hudson MD at 14:23 EST , D/C Instructions DC O2, CPAP, BIPAP Needs PSN CPAP & BiPAP: BiPAP & CPAP Settings per PSN Mode BiPAP 09/24/24 09:20 Bipap Delivery Device Face Mask 09/24/24 09:20 BiPAP Inspiratory Pressure 15 09/24/24 09:20 BiPAP Expiratory Pressure 8 09/24/24 09:20 BiPAP Rate 12 09/24/24 09:20 Fraction of Inspired Oxygen ( 35 09/24/24 10:00 FIO2) Home O2 Discharge instructions: No Meaningful Use Info Meaningful Use Meaningful Use Diagnoses (Choose all that apply): None applicable Ischemic Stroke Statin Dosing Therapy Reference: STATIN DOSE THERAPY REFERENCE: * Patients > 75 years receive moderate or high dose statin therapy. * Patients 75 years or YOUNGER should receive HIGH intensity statin dose unless contraindicated. You will be required to document reason for non-treatment if statin daily dose does not meet guidelines. HIGH DOSE STATIN THERAPY DAILY Atorvastatin > than or = to 40 mg Rosuvastatin > than or = to 20 mg Amlodipine + Atorvastatin > than or = to 2.5/40 mg Ezetimibe + Simvastatin 10/80 mg Simvastatin 80mg Discharge Plan Admission Admit Date/Time: 09/20/24 21:07 Primary Reason for Your Visit: Ileus Attending Provider: Les Anderson Primary Care Provider: Husam Deras Consulting Providers: Yousif Madden; Diane Justice; Theo Ramirez Discharge Orders/Prescriptions Prescriptions: New Ensure Plus High Protein 0.08 gram-1.5 kcal/mL Liquid 120 ml PO TIDCM Qty: 0 0RF Continued naproxen sodium [Aleve] 220 mg tablet 220 mg PO Q12H PRN atenolol 25 MG tablet 25 mg PO DAILY cetirizine 10 mg tablet 10 mg PO DAILY Patient Comments: TAKE 1 TABLET BY MOUTH ONCE DAILY psyllium husk [Daily Fiber] 0.4 gram Capsule 0.4 g PO DAILY tamsulosin 0.4 mg Capsule 0.4 mg PO BID rosuvastatin 10 mg tablet 10 mg PO QHS Eliquis 5 mg Tablet 5 mg PO BID 60 Days Qty: 120 0RF nitroglycerin 0.4 mg tablet, sublingual 0.4 mg sublingual Q5M PRN (Reason: chest pain) Patient Comments: DISSOLVE ONE TABLET UNDER THE TONGUE EVERY 5 MINUTES FOR 3 TIMES NEEDED FOR CHEST PAIN. lisinopril 20 mg tablet 20 mg PO BID fluticasone propion-salmeterol 250-50 mcg/dose blister with device 1 ea INHALATION BID aspirin [Adult Low Dose Aspirin] 81 mg tablet,delayed release (DR/EC) 81 mg PO DAILY levothyroxine 150 mcg tablet 150 mcg PO DAILY furosemide 20 mg tablet 40 mg PO DAILY albuterol sulfate 90 mcg/actuation HFA aerosol inhaler inhalation gabapentin 400 mg Capsule 400 mg PO TID Referrals / Follow Up: Husam Deras DO [Primary Care Provider] - Within 2 Weeks Disposition Disposition (needs filled in before D/C Order can be placed): Longterm Facility Charges/Coding Visit Charges Inpatient E&M: 09618 Disch Hosp >30min
--- NOTE | 2024-10-05 09:24 | CASEMGMT ---
Social Work SW received message from pt's dgt Isabela that she visited [facility] and is agreeable for pt to transfer to [facility] today. Physician notified that precert has been obtained. Pt is medically ready for dc today. PASRR completed in [facility]. DC social science research assistant to complete discharge. Disposition: [facility], skilled level of care KIKI Walton
--- NOTE | 2024-10-05 09:32 | CASEMGMT ---
Addendum entered by Amalia Hernandez 10/05/24 09:36: VM left for pts other daughter (Amalia ). Amalia Hernandez DC Planning Asst. Original Note: Discharge orders, signed med list, and transport time sent to [facility]. Physicians will transport pt by cot at 10:30a. Nursing and SW updated. Attempted to update pts daughter (Isabela) but her vm was full (SW made aware). Amalia Hernandez DC Planning Asst.
[2024-10-05 09:34] VITALS: BP 142/77; PULSE 87; RESP 20; TEMP 36.5; O2SAT 94
--- NOTE | 2024-10-05 09:39 | PN.SURG_ITS ---
Subjective Subjective Pt having BM and alberto PO Objective Data Objective Data Vital Signs: Vital Signs Temp Pulse Resp BP Pulse Ox O2 Del Method O2 Flow Rate 97.4 F L 82 24 H 135/64 H 91 Room Air 15 10/05/24 02:27 10/05/24 07:41 10/05/24 07:41 10/05/24 02:27 10/05/24 07:41 10/05/24 07:41 09/28/24 06:46 FiO2 35 09/24/24 10:00 Oxygen Flow Rate (L/min) 15 Oxygen Delivery Method Room Air Weight: 256 lb 9.889 oz Body Mass Index (BMI) 34.7 Intake & Output: Intake and Output for Last 24 Hours 10/03/24 10/04/24 10/05/24 23:59 23:59 23:59 Intake Total 1640 / 1640 3054.43 / 3054.43 120 / 120 Output Total 700 / 900 1000 / 1000 400 / 400 Balance 940 / 740 2054.43 / 2054.43 -280 / -280 Lab / Micro Data 10/02/24 07:04 10/04/24 06:00 Micro: Microbiology 09/24/24 08:26 Blood Culture (Wb) - Anticubital Left Blood Culture - Final No growth in 5 days. 09/24/24 11:50 Urine Catheter - Little Urine Culture - Final Culture exhibits no growth. 09/20/24 20:00 Blood Culture (Wb) - Left Hand Blood Culture - Final No growth in 5 days. 09/20/24 20:05 Blood Culture (Wb) - Other Blood Culture - Final No growth in 5 days. 09/25/24 18:30 Gastric Fluid/Contents Gastric Occult Blood - Final Occult Blood Positive 09/20/24 23:10 Mucosa - Nasopharyngeal Respiratory Panel (PCR) - Final 09/20/24 18:20 Mucosa - Nose SARS-CoV-2, Influenza & RSV (PCR) - Final Radiography Diagnostic Testing: Radiology Impression Abdomen X-Ray 10/04/24 13:55 IMPRESSION: Moderate gaseous distention of the stomach. Contrast is seen throughout the colon down to the rectum. Findings suggest mild ileus pattern. Electronically Signed: Erick Hudson MD at 14:23 EST , Rhythm Strip Rhythm Strip: Sinus Tach Rate: 105 Ectopy: None Physical Exam Const no apparent distress Resp normal respiratory effort GI soft to palpation and non-tender Assessment & Plan Assessment/Plan (1) Ileus: PLAN: Plan ileus resolving. alberto PO and +BM Diane Justice M.D. Pager: [phone] [facility] [address] [place] [address], [facility], [address] [place] [address] Office: [phone] Charges/Coding Visit Charges Inpatient E&M: 28174 Subs Hosp L2
--- NOTE | 2024-10-05 10:20 | PHA.DC.MR.R ---
Pharmacy [place] Med Reconciliation Pharmacy Service has performed discharge medication reconciliation for this patient. The patient's discharge medication list was reviewed for discrepancies and discrepancies were resolved. Medications at Discharge Home Medications atenolol 25 mg tablet 25 mg PO DAILY blood pressure 10/10/17 cetirizine 10 mg tablet 10 mg PO DAILY allergies 11/03/21 psyllium husk 0.4 gram capsule (Daily Fiber) 0.4 g PO DAILY fiber 12/24/21 tamsulosin 0.4 mg capsule 0.4 mg PO BID prostate 12/24/21 rosuvastatin 10 mg tablet 10 mg PO QHS cholesterol 09/14/23 apixaban 5 mg tablet (Eliquis) 5 mg PO BID pvd 60 days #120 tabs 09/17/23 lisinopril 20 mg tablet 20 mg PO BID bp 10/21/23 nitroglycerin 0.4 mg sublingual tablet 0.4 mg sublingual Q5M PRN chest pain 01/25/24 aspirin 81 mg tablet,delayed release (Adult Low Dose Aspirin) 81 mg PO DAILY supplement 07/10/24 fluticasone 250 mcg-salmeterol 50 mcg/dose blistr powdr for inhalation 1 ea inhalation BID asthma 07/10/24 naproxen sodium 220 mg tablet (Aleve) 220 mg PO Q12H PRN 08/07/24 levothyroxine 150 mcg tablet 150 mcg PO DAILY Thyroid 09/20/24 albuterol sulfate 90 mcg/actuation aerosol inhaler inhalation SOB 09/21/24 furosemide 20 mg tablet 40 mg PO DAILY Water Pill 09/21/24 gabapentin 400 mg capsule 400 mg PO TID nerve pain 09/21/24 food supplemt, lactose-reduced 0.08 gram-1.5 kcal/mL oral liquid (Ensure Plus High Protein) 120 ml PO TIDCM #0 mL 10/05/24
== END 2024-10-05 11:15 | disposition skilled nursing facility (03) | DRG 70 ==
LOC: ED 20:00 → PCU 21:50 → ICU 09-24 12:22 → MS3 09-29 18:25
PROVIDERS: Internal Medicine; Internal Medicine Critical Care Medicine; Surgery; Admitting Provider Hospitalist; Emergency Provider Emergency Medicine; PCP Student in an Organized Health Care Education/Training Program
DX: G93.41 Metabolic encephalopathy (principal); R57.1 Hypovolemic shock; J69.0 Pneumonitis due to inhalation of food and vomit; J18.9 Pneumonia, unspecified organism; E46 Unspecified protein-calorie malnutrition; M62.82 Rhabdomyolysis; D62 Acute posthemorrhagic anemia; E87.20 Acidosis, unspecified; E87.0 Hyperosmolality and hypernatremia; J44.0 Chronic obstructive pulmonary disease with (acute) lower respiratory infection; I13.0 Hypertensive heart and chronic kidney disease with heart failure and stage 1 through stage 4 chronic kidney disease, or unspecified chronic kidney disease; K56.7 Ileus, unspecified; N17.9 Acute kidney failure, unspecified; K92.1 Melena; D63.1 Anemia in chronic kidney disease; N18.31 Chronic kidney disease, stage 3a; E11.22 Type 2 diabetes mellitus with diabetic chronic kidney disease; I65.22 Occlusion and stenosis of left carotid artery; I73.9 Peripheral vascular disease, unspecified; E03.9 Hypothyroidism, unspecified; E66.811 Obesity, class 1; E86.1 Hypovolemia; R54 Age-related physical debility; I50.810 Right heart failure, unspecified; I25.10 Atherosclerotic heart disease of native coronary artery without angina pectoris; E87.6 Hypokalemia; E78.00 Pure hypercholesterolemia, unspecified; W19.XXXA Unspecified fall, initial encounter; E86.9 Volume depletion, unspecified; D50.9 Iron deficiency anemia, unspecified; E11.40 Type 2 diabetes mellitus with diabetic neuropathy, unspecified; E87.8 Other disorders of electrolyte and fluid balance, not elsewhere classified; Z66 Do not resuscitate; R79.89 Other specified abnormal findings of blood chemistry; Z87.891 Personal history of nicotine dependence; Z79.82 Long term (current) use of aspirin; R09.02 Hypoxemia; Z68.33 Body mass index [BMI] 33.0-33.9, adult; Z79.01 Long term (current) use of anticoagulants; Z79.890 Hormone replacement therapy; Z86.718 Personal history of other venous thrombosis and embolism; Z79.2 Long term (current) use of antibiotics; Z68.34 Body mass index [BMI] 34.0-34.9, adult; N40.0 Benign prostatic hyperplasia without lower urinary tract symptoms; R00.0 Tachycardia, unspecified; Z88.8 Allergy status to other drugs, medicaments and biological substances; Z95.1 Presence of aortocoronary bypass graft; Z79.84 Long term (current) use of oral hypoglycemic drugs; Z78.1 Physical restraint status; Z99.89 Dependence on other enabling machines and devices
CPT/HCPCS: 36415; 36569; 36600; 51702; 70450; 71045; 72125; 74018; 74019; 74177; 74250; 80048; 80053; 80076; 81001; 82271; 82330; 82550; 82607; 82728; 82746; 82803; 82962; 83036; 83540; 83550; 83605; 83690; 83735; 84100; 84439; 84443; 84478; 84484; 85025; 85027; 85610; 85730; 86644; 86850; 86900; 86901; 87040; 87086; 87631; 87633; 92523; 92526; 92610; 93005; 93308; 94002; 94003; 94640; 94668; 94762; 97110; 97129; 97163; 97167; 97530; 97535; 97802; 97803; 99285; J2185; P9016; Q9967; A4216; J0295; J2405